=== PATIENT | female | born 1970 | race Caucasian/White ===

== ENCOUNTER → 2018-03-15 14:58 | Outpatient (CLI) | payer BC, SELFPAY ==
[2018-03-15 16:53] LABS: Absolute Lymphocyte Count 1.72 X10^3/ul (0.83-4.51); Absolute Neutrophil Count 3.7 X10^3/uL (2.0-7.7); Basophil# 0.02 X10^3/uL; Basophil% 0.3 % (0-1); Eosinophil# 0.18 X10^3/uL; Hematocrit 40.1 % (37-47); Hemoglobin 12.9 g/dl (12.0-15.0); Lymphocyte # 1.72 X10^3/ul (4.0); Lymphocyte % 28.6 % (19-41); Mean Corp Hgb Conc 32.2 g/gl (32-36); Mean Corpuscular Hgb 28.2 pg (27.0-32.0); Mean Corpuscular Volume 87.6 fL (81-99); Mean Platelet Vol. 9.6 fl (6.2-12.0); Monocyte# 0.43 X10^3/uL; Monocyte% 7.1 % (0-10); Neutrophil # 3.66 X10^3/uL (2.7-7.7); Neutrophil % 60.8 % (47-70); Platelet Count 218 K/mm3 (150-450); RBC Distribution Width CV 12.1 % (11.6-14.6); RBC Distribution Width SD 38.1 fl (35.1-43.9); Red Blood Count 4.58 M/mm3 (4.2-5.4)
[2018-03-15 16:56] LABS: POSITIVE COUNT NO; POSITIVE DIFFERENTIAL NO; POSITIVE MORPHOLOGY NO
[2018-03-15 17:23] LABS: AST(SGOT) 45 U/L (15-37); Alanine Aminotransfer ALT/SGPT 55 U/L (13-56); Albumin, Serum 3.6 g/dL (3.2-5.0); Alkaline Phosphatase 57 U/L (45-117); Anion Gap 12 (5-15); BUN 10 mg/dL (7-18); BUN/Creat Ratio 12.9 RATIO (10-20); Calcium,Total 8.4 mg/dL (8.5-10.1); Chloride 106 mmol/L (98-107); Cholesterol 169 mg/dL (200); Creatinine, Serum 0.77 mg/dL (0.55-1.02); EST Glomerular Filtration Rate 84 mL/min (>60); Est Glom Filt Rate - Afr Amer 101 mL/min (>60); Free T3 3.2 pg/mL (2.18-3.98); Globulin 3.6 g/dL (2.2-4.2); Glucose 76 mg/dL (74-106); High Density Lipoprotein 43 mg/dL; Potassium 3.7 mmol/L (3.5-5.1); Prolactin 25.6 ng/mL; Protein, Total 7.2 g/dL (6.4-8.2); Sodium Level 139 mmol/L (136-145); T4 Free Direct 0.92 ng/dL (0.76-1.46); Thyroid Stim Hormone (TSH) 1.52 uIU/mL (0.358-3.74); Triglycerides 118 mg/dL; Very Low Density Lipoprotein 24 mg/dL (5-40)
== END ==
PROVIDERS: Family Provider Family Medicine; PCP Family Medicine; Referring Provider Family Medicine; Visit Provider Family Medicine
DX: E78.5 Hyperlipidemia, unspecified (principal); K76.0 Fatty (change of) liver, not elsewhere classified; E78.1 Pure hyperglyceridemia; R53.83 Other fatigue; Z51.81 Encounter for therapeutic drug level monitoring
CPT/HCPCS: 36415; 80053; 80061; 84146; 84439; 84443; 84481; 85025

== ENCOUNTER → 2018-08-22 | Outpatient (CLI) | payer MEDICAID, SELFPAY ==
[2018-08-22 10:18] LABS: Hematocrit 41.8 % (37-47); Hemoglobin 13.6 g/dL (12.0-15.0); Mean Corp Hgb Conc 32.5 g/dL (32-36); Mean Corpuscular Hgb 27.9 pg (27.0-32.0); Mean Corpuscular Volume 85.8 fL (81-99); Mean Platelet Vol. 9.4 fl (6.2-12.0); Platelet Count 243 K/mm3 (150-450); RBC Distribution Width CV 12.3 % (11.6-14.6); RBC Distribution Width SD 38.3 fl (35.1-43.9); Red Blood Count 4.87 M/mm3 (4.2-5.4); White Blood Count 5.1 K/mm3 (4.4-11.0)
[2018-08-22 10:49] LABS: Hemoglobin A1c 6.1 % (4.2-6.3)
[2018-08-22 11:00] LABS: ALB/GLOB Ratio 1.1 RATIO (0.9-2.4); AST(SGOT) 36 U/L (15-37); Alanine Aminotransfer ALT/SGPT 60 U/L (13-56); Albumin, Serum 3.9 g/dL (3.2-5.0); Alkaline Phosphatase 67 U/L (45-117); Anion Gap 6 (5-15); BUN 11 mg/dL (7-18); BUN/Creat Ratio 10.5 RATIO (10-20); Calcium,Total 9.2 mg/dL (8.5-10.1); Chloride 106 mmol/L (98-107); Cholesterol 198 mg/dL (200); Creatinine, Serum 1.05 mg/dL (0.55-1.02); EST Glomerular Filtration Rate 59 mL/min (>60); Est Glom Filt Rate - Afr Amer 71 mL/min (>60); Estradiol 16.9 pg/mL; Globulin 3.7 g/dL (2.2-4.2); Glucose 103 mg/dL (74-106); High Density Lipoprotein 50 mg/dL; Potassium 4.2 mmol/L (3.5-5.1); Protein, Total 7.6 g/dL (6.4-8.2); Sodium Level 137 mmol/L (136-145); Triglycerides 113 mg/dL; Very Low Density Lipoprotein 23 mg/dL (5-40)
== END | disposition home or self-care (01) ==
LOC: LAB.FUTURE 08:31
PROVIDERS: Family Provider Family Medicine; PCP Family Medicine
DX: F64.0 Transsexualism (principal); Z13.1 Encounter for screening for diabetes mellitus
CPT/HCPCS: 36415; 80053; 80061; 82670; 83036; 84403; 85027

== ENCOUNTER → 2018-08-30 | Outpatient (CLI) | payer MEDICAID, SELFPAY ==
--- NOTE | 2018-08-30 15:26 | BI_ITS ---
MAMMOGRAPHY - BILATERAL SCREENING 3-D TOMOSYNTHESIS REASON FOR EXAM: Female, 48 years old. Bilateral Screening 3-D tomosynthesis PERTINENT HISTORY: No significant family history. TECHNIQUE: 2-D mammograms and 3-D Tomosynthesis of the breast (s) were performed. CAD was performed. COMPARISON: 08/13/2016 FINDINGS: The breast composition is heterogeneously dense that can obscure small breast masses. Scattered benign calcifications are seen. No dense spiculated masses or suspicious microcalcifications are identified. No architectural distortion is identified. There is no skin thickening or retraction. There has been no significant change since the prior study. BI/SCREEN MAMM (CAD) W/JESSY BILAT IMPRESSION: No mammographic signs of malignancy. Routine yearly mammograms recommended. ASSESSMENT CATEGORY: BIRADS Category 2: Benign. A letter regarding these results will be sent to the patient by the facility within 30 days. FOLLOW UP RECOMMENDATION: Yearly follow up mammogram recommended. (A) Approximately 10% of breast cancers are not detected by mammography. A normal mammogram should not delay biopsy of a clinically suspicious abnormality. Electronically Signed: Cheo Liz MD at 9:42 EDT , Service support ,
== END | disposition home or self-care (01) ==
PROVIDERS: Family Provider Family Medicine; PCP Family Medicine
DX: Z12.31 Encounter for screening mammogram for malignant neoplasm of breast (principal); F64.0 Transsexualism; Z79.899 Other long term (current) drug therapy
CPT/HCPCS: 77063; 77067

== ENCOUNTER 2019-04-03 18:25 | Emergency (ER) | payer MEDICAID, SELFPAY ==
[2019-04-03 18:27] VITALS: BP 146/81; PULSE 106; RESP 18; TEMP 36.1; O2SAT 96; BMI 37.5
[2019-04-03] MEDS: Ibuprofen 400 MG Tablet 800 MG PO (19:00)
--- NOTE | 2019-04-03 19:05 | RAD_ITS ---
STUDY: X-RAY - LEFT ANKLE REASON FOR EXAM: Female, 49 years old. Fall, left ankle pain and swelling TECHNIQUE: 3 view(s) of the ankle. COMPARISON: None. FINDINGS: No acute fracture, dislocation or osseous destruction. Mild joint space narrowing and productive changes. Diffuse soft tissue swelling. IMPRESSION: No acute fracture or dislocation left ankle. Electronically Signed: Clement Cam, at 20:42 EST Tel , Service support , RAD/Ankle min 3 Views
--- NOTE | 2019-04-03 19:16 | ED.VISSUMM ---
- ER Visit Summary Date of Service: 04/03/19 Chief Complaint: Left ankle pain History of Present Illness: The patient is a [address] Luo. Reports that at 530 this evening while getting out of the car she had a forced inversion injury of her left ankle. She fell. She did not have a blow to the head. No loss of consciousness. She not on anticoagulants. She reports she has left knee pain is 2 out of 10 in severity and left ankle pain is 7 out of 10 severity. She denies any other injuries or complaints. She denies any paresthesias. Physical Examination: Vitals: Stable. Afebrile. Neck: No vertebral tenderness. Full ROM without difficulty. Cleared by NEXUS criteria. Back: No vertebral tenderness. General: A&O x 3. NAD. Cardiovascular exam: Regular rate and rhythm, no murmur, rub or gallop. Respiratory exam: Chest nontender. No crepitus. Clear to auscultation bilaterally. No wheezes or stridor. Abdominal exam: Soft, nontender, nondistended, normal bowel sounds. No pain in RUQ or LUQ specifically. No peritoneal signs. Extremity: Moderate tenderness palpation over both the medial lateral malleoli of her left ankle. There is no pain over the base the fifth nodule tarsal or the proximal fibula. She is neuro vas intact distal to this. No pain with range of motion. Test Results: Ankle x-ray shows no acute disease. Emergency Department Course and Treatment: Patient was treated with ibuprofen. She had an Satish wrap and Aircast placed. Treatment Plan: Patient be discharged instructions use Tylenol and/or ibuprofen for pain. Follow-up with her primary care physician 1 week if not improving. Disposition: To home in improved and stable condition. Impression: 1. Left ankle sprain. This note was generated with [employer] dictation software. It may contain incorrect words, spelling, and punctuation that were not noted in review of the chart prior to signing ED Disposition - Plan for ED Patient: Disposition: Home or Assisted Living Instructions: Sprain, Ankle, with X-Ray Referrals: Kell Granados DO [Primary Care Provider] - 1 Week if not improving
== END 2019-04-03 19:27 | disposition home or self-care (01) ==
LOC: ED 19:06
PROVIDERS: Emergency Provider Emergency Medicine; PCP Family Medicine
DX: S93.402A Sprain of unspecified ligament of left ankle, initial encounter (principal); W17.89XA Other fall from one level to another, initial encounter
CPT/HCPCS: 73610; 99283

== ENCOUNTER → 2019-07-05 08:12 | Outpatient (CLI) | payer MEDICAID, SELFPAY ==
[2019-07-05 12:43] LABS: Absolute Neutrophil Count 2.7 X10^3/uL (2.0-7.7); Basophil# 0.03 X10^3/uL; Basophil% 0.6 % (0-1); Eosinophil# 0.26 X10^3/uL; Eosinophils% 5.3 % (0-5); Hematocrit 40.9 % (37-47); Hemoglobin 13.2 g/dL (12.0-15.0); Lymphocyte % 30.5 % (19-41); Mean Corp Hgb Conc 32.3 g/dL (32-36); Mean Corpuscular Hgb 28.6 pg (27.0-32.0); Mean Corpuscular Volume 88.5 fL (81-99); Mean Platelet Vol. 9.5 fl (6.2-12.0); Monocyte# 0.39 X10^3/uL; Monocyte% 7.9 % (0-10); NRBC Flagged by Analyzer 0 % (0-5); Neutrophil # 2.72 X10^3/uL (2.7-7.7); Neutrophil % 55.5 % (47-70); Platelet Count 247 K/mm3 (150-450); RBC Distribution Width SD 38.5 fl (35.1-43.9); Red Blood Count 4.62 M/mm3 (4.2-5.4); White Blood Count 4.9 K/mm3 (4.4-11.0)
[2019-07-05 13:00] LABS: Hemoglobin A1c 5.8 % (3.8-5.6)
[2019-07-05 13:18] LABS: ALB/GLOB Ratio 0.9 RATIO (0.9-2.4); AST(SGOT) 20 U/L (15-37); Alanine Aminotransfer ALT/SGPT 28 U/L (13-56); Albumin, Serum 3.5 g/dL (3.2-5.0); Alkaline Phosphatase 70 U/L (45-117); Anion Gap 6 (5-15); BUN 17 mg/dL (7-18); BUN/Creat Ratio 21.7 RATIO (10-20); Calcium,Total 8.8 mg/dL (8.5-10.1); Chloride 109 mmol/L (98-107); Cholesterol 176 mg/dL (200); Creatinine, Serum 0.78 mg/dL (0.55-1.02); EST Glomerular Filtration Rate 82 mL/min (>60); Est Glom Filt Rate - Afr Amer 99 mL/min (>60); Estradiol 136.2 pg/mL; Globulin 3.8 g/dL (2.2-4.2); Glucose 98 mg/dL (74-106); High Density Lipoprotein 53 mg/dL; Potassium 4.1 mmol/L (3.5-5.1); Protein, Total 7.3 g/dL (6.4-8.2); Sodium Level 139 mmol/L (136-145); Thyroid Stim Hormone (TSH) 2.01 uIU/mL (0.358-3.74); Triglycerides 110 mg/dL; Very Low Density Lipoprotein 22 mg/dL (5-40)
== END ==
PROVIDERS: PCP Family Medicine; Visit Provider Family Medicine
DX: Z00.00 Encounter for general adult medical examination without abnormal findings (principal); I10 Essential (primary) hypertension; F64.9 Gender identity disorder, unspecified; E78.5 Hyperlipidemia, unspecified
CPT/HCPCS: 36415; 80053; 80061; 82670; 83036; 84403; 84443; 85025

== ENCOUNTER → 2019-09-03 12:56 | Outpatient (CLI) | payer MEDICAID, SELFPAY ==
--- NOTE | 2019-09-03 13:02 | BI_ITS ---
MAMMOGRAPHY - BILATERAL SCREENING REASON FOR EXAM: Female, 49 years old. Routine annual screening examination. PERTINENT HISTORY: Non-contributory. TECHNIQUE: Digital bilateral breast jessy (3D mammographic acquisition) in the CC and MLO projections. 2-D mediolateral oblique (MLO) and craniocaudad (CC) views of both breasts were obtained. CAD: Full Field Digital Mammography with Computer Added Detection was performed. COMPARISON: Comparison is made with prior examination dated 08-30-18 and 08-13-16. FINDINGS: Breast Composition: The breasts are heterogeneously dense, which may obscure small masses. There are no dominant masses or suspicious calcifications. Stable benign-appearing bilateral axillary lymph nodes. No other significant abnormalities are identified. There has been no significant change since the prior study. BI/SCREEN MAMM (CAD) W/JESSY BILAT IMPRESSION: Stable bilateral screening mammogram. Yearly follow-up mammogram recommended. (A) ASSESSMENT CATEGORY: BIRADS Category 2: Benign. A letter regarding these results will be sent to the patient by the facility within 30 days. Approximately 10% of breast cancers are not detected by mammography. A normal mammogram should not delay biopsy of a clinically suspicious abnormality. [id number] Electronically Signed: Charlie Brumfield, at 14:10 EDT , Service support ,
== END ==
DX: Z12.31 Encounter for screening mammogram for malignant neoplasm of breast (principal)
CPT/HCPCS: 77063; 77067

== ENCOUNTER 2020-04-08 15:47 | Emergency (ER) | payer OTHER, MEDICAID, SELFPAY ==
[2020-04-08 15:48] VITALS: BP 139/94; PULSE 86; RESP 16; TEMP 35.8; O2SAT 96; BMI 34.4
--- NOTE | 2020-04-08 16:09 | ED.DCSUM_ITS ---
History of Present Illness Chief Complaint: Lower Extremity Injury Informant: Patient Occurred: Today Mechanism/Context: - - walking Context: Sudden Onset Timing: Continuous Quality of Pain: - - sore Location: lateral aspect left knee Current Severity: Mild Maximum Severity: Moderate Worsened by: straightening LLE at the knee Relieved by: bending and resting Associated Symptoms: Negative for: Parasthesia, Weakness, Loss of Funtion Narrative: Patient was at work, but not lifting or doing anything in particular, she was simply walking and suddenly felt a pop in the posterior lateral aspect of her left knee and has had pain with walking ever since especially when the leg is straightened at the knee. She denies any numbness or tingling, swelling, or radiation of the pain into her calf or any other abnormal sensations. She states she thinks she has had pain like this before but cannot recall specifically. Has had no prior major knee issues. 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 Past Medical History - Allergies and Home Meds Allergies/Adverse Reactions: Allergies Penicillins Allergy (Verified 04/08/20 15:48) Unknown Primary Care Physician: NOT,DEFINED [Primary Care Provider] - Past Medical History: None Lives: Spouse/ Significant Other Smoking Status: Former smoker Review of Systems General: Denies: Chills, Fever, Sweats Musculoskeletal: Reports: Extremity Pain. Denies: Back pain, Swelling Skin: Denies: Rash, Wounds Neurological: Denies: Headache, Weakness, Numbness Physical Exam Vital Signs/Narrative: Vital Signs Temp Pulse Resp BP Pulse Ox 04/08/20 15:48 96.5 F L 86 16 139/94 H 96 Inital Vital Signs reviewed: Yes - Extremity Exam Left Knee: - - Full range of motion. No bony tenderness. No effusion. Extensor mechanism intact. When straightened, she is tender at the insertion of the iliotibial band laterally about the left knee. There is no local swelling or erythema. There are no other tendons or muscles that are tender.. Negative for: Limited ROM General: Well nourished, Well developed, - - No acute distress Head: Normocephalic, Atraumatic Cardiovascular: - - Left lower extremity distal pulse intact. Back: - - Full range of motion without discomfort Skin: Normal color, No rash, No Trauma Neurological: Alert, Oriented x3, Cranial nerves II-XII grossly intact, Normal Strength, Normal Sensation, Normal Gait Psychological: Normal affect, Normal Mood Diagnostic/Tx/Re-eval - Medical Decision Making I think this patient simply strained her iliotibial band. Given that I do not think x-rays are indicated. I had her do a stretch that targets the iliotibial band on that side and she said that seem to target the structure that was hurting. All of her knee ligaments are stable and intact without any discomfort on stressing any of them including the LCL. I performed a Gerry to the best of my ability that is negative, this is all consistent with IT band being the issue. She was reassured this is treated similar to tendinitis with rest, anti- inflammatories, ice as needed, and if she does not have improvement in 1-2 weeks she should follow-up with her doctor and she is comfortable with that plan. ED Disposition - Plan for ED Patient: Disposition: Home or Assisted Living Diagnosis: Iliotibial band syndrome affecting left lower leg Instructions: ED Knee Sprain Referrals: NOT,DEFINED [Primary Care Provider] - Doctor,Your [STAFF PHYSICIAN] - 1-2 Weeks (if not improving w/ rest, ibuprofen, ice)
[2020-04-08] MEDS: Naproxen 500 MG Tablet PO (16:23)
== END 2020-04-08 16:28 | disposition home or self-care (01) ==
PROVIDERS: Emergency Provider Emergency Medicine
DX: M76.32 Iliotibial band syndrome, left leg (principal); Z87.891 Personal history of nicotine dependence
CPT/HCPCS: 99283

== ENCOUNTER 2021-06-16 19:08 | Emergency (ER) | payer MEDICAID, SELFPAY ==
[2021-06-16 19:09] VITALS: BP 121/90; PULSE 95; RESP 15; TEMP 35.2; O2SAT 94; BMI 37.5
[2021-06-16 19:25] LABS: Bedside Glucose 414 mg/dL (74-106)
--- NOTE | 2021-06-16 19:31 | EDS_ITS ---
HPI History of Present Illness Chief Complaint: Hyperglycemia Informant: patient Narrative Narrative: 51-year-old female presented to the emergency room with hyperglycemia. Patient tells me that her doctor is in [place]. She states that she was recently told that she has diabetes but not started on any medicines. She states that her next appointment is not until August. She has developed urinary frequency particular at night, dry mouth, lightheadedness, and notes that her blood sugars tonight were around 500. She states that she has not received any diabetes counseling. [facility] Medical History (Updated 06/16/21 @ 19:[address] Cristian Murray, ) Fatty liver Hypertension Type 2 diabetes mellitus Home Medications estradiol 2 mg PO BID 04/08/20 [History Last Taken Unknown] finasteride 5 mg PO DAILY 04/08/20 [History Last Taken Unknown] lisinopril 10 mg PO DAILY 04/08/20 [History Last Taken Unknown] metformin 500 mg PO BID #60 tab 06/16/21 [Rx Last Taken Unknown] Allergy/AdvReac Type Severity Reaction Status Date / Time Penicillins Allergy Unknown Verified 06/16/21 19:13 Social History (Updated 06/16/21 @ 19:[address] Cristian Murray, ) Smoking Status: Former smoker substance use type: does not use ROS ROS ED Constitutional Constitutional ED: Denies chills, fever(s) or weight loss Eyes Eyes: Denies change in vision or diplopia ENT ENT ED: Reports other Details: Dry mouth ; Denies ear pain, rhinorrhea or sore throat Cardiovascular Cardiovascular: Denies chest pain, orthopnea, palpitations or racing heartbeat Respiratory/Chest Respiratory/Chest: Denies cough, dyspnea or orthopnea Gastrointestinal Gastrointestinal: Denies abdominal pain, diarrhea, nausea or vomiting Genitourinary Genitourinary ED: Reports urinary frequency; Denies dysuria or hematuria Musculoskeletal Musculoskeletal: Denies arthralgias or myalgias Integumentary Denies abscess or rash Neurologic Neurologic: Reports weakness; Denies headache(s) Psychiatric Psychiatric: Denies anxiety, depression, suicidal ideation or suicidal thoughts Endocrine Endocrinology: Denies polydipsia, polyphagia or polyuria Allergic/Immunologic Allergic/Immunologic ED: Denies mouth swelling, tongue swelling or urticaria EXAM Physical Exam Const Vital Signs: 06/16/21 19:09 Temperature 95.4 F L Temperature Source Temporal Pulse Rate 95 Respiratory Rate 15 Blood Pressure 121/90 H Blood Pressure Mean 100 Pulse Ox 94 Oxygen Delivery Method Room Air Positive well nourished, well developed and obese General Appearance ED: well developed Nutritional Appearance: obese HEENT Reports normocephalic, head/scalp atraumatic, TM's clear and moist mucous membra yamila Negative for trauma Tympanic Membrane ED: Yes TM's clear Eyes PERRL and EOMs intact bilaterally Neck no lymphadenopathy, supple and no JVD Resp normal respiratory effort and clear to auscultation bilaterally Cardio regular rate, regular rhythm and no murmurs GI normal to inspection, nondistended, normoactive bowel sounds and non-tender Palpation: soft Back/Spine no CVA tenderness and normal ROM Extremity normal to inspection General Extremety ED: Negative for edema General Extremity: Negative for edema Neuro oriented x3 and CN's II-XII intact bilaterally Sensorium / Orientation: alert Motor Exam: strength 5/5 throughout Psych mental status grossly normal Mood & Affect: Negative for depressed or tearful Skin no rashes or lesions noted and no wounds MDM MDM MDM Narrative Medical decision making narrative: The patient's CMP shows a glucose of 395. Her hemoglobin A1c is 12.3 urinalysis positive for ketones. She does not have an anion gap and her CO2 was 21. Patient will be started on metformin. She received a liter of IV fluids. She was referred to endocrinology Lab Data Attestation: I reviewed the patient's lab results. Labs: Laboratory Results - last 24 hr 06/16/21 06/16/21 06/16/21 19:18 19:28 19:28 WBC 4.6 RBC 4.95 Hgb 13.9 Hct 40.9 MCV 82.6 MCH 28.1 MCHC 34.0 RDW Std Deviation 36.5 RDW Coeff of [place] 12.0 Plt Count 221 MPV 9.4 Immature Gran % (Auto) 0.400 Neut % (Auto) 57.4 Lymph % (Auto) 28.2 [place] % (Auto) 11.8 H Eos % (Auto) 1.3 Baso % (Auto) 0.9 Absolute Neuts (auto) 2.6 Absolute Lymphs (auto) 1.29 Nucleated RBC % 0 Sodium 134 L Potassium 3.9 Chloride 99 Carbon Dioxide 21.0 Anion Gap 14 BUN 12 Creatinine 0.73 Estim Creat Clear Calc 86.67 Est GFR (MDRD) Af Amer 108 Est GFR (MDRD) Non-Af 89 BUN/Creatinine Ratio 16.5 Glucose 395 H Hemoglobin A1c Calcium 8.9 Total Bilirubin 0.50 AST 91 H ALT 215 H Alkaline Phosphatase 73 Total Protein 7.5 Albumin 3.2 Globulin 4.3 H Albumin/Globulin Ratio 0.7 L Urine Color Urine Clarity Urine pH Ur Specific [place] Urine Protein Urine Glucose (UA) Urine Ketones Urine Occult Blood Urine Nitrite Urine Bilirubin Urine Urobilinogen Ur Leukocyte Esterase Urine RBC Urine WBC Ur Squamous Epith Cells Urine Bacteria Urine Mucus POC Glucose 414 H 06/16/21 06/16/21 19:28 19:37 WBC RBC Hgb Hct MCV MCH MCHC RDW Std Deviation RDW Coeff of [place] Plt Count MPV Immature Gran % (Auto) Neut % (Auto) Lymph % (Auto) [place] % (Auto) Eos % (Auto) Baso % (Auto) Absolute Neuts (auto) Absolute Lymphs (auto) Nucleated RBC % Sodium Potassium Chloride Carbon Dioxide Anion Gap BUN Creatinine Estim Creat Clear Calc Est GFR (MDRD) Af Amer Est GFR (MDRD) Non-Af BUN/Creatinine Ratio Glucose Hemoglobin A1c 12.3 H Calcium Total Bilirubin AST ALT Alkaline Phosphatase Total Protein Albumin Globulin Albumin/Globulin Ratio Urine Color Yellow Urine Clarity Clear Urine pH 6.0 Ur Specific [place] 1.020 Urine Protein Negative Urine Glucose (UA) 1000 H Urine Ketones 150 A* Urine Occult Blood 10 H Urine Nitrite Negative Urine Bilirubin Negative Urine Urobilinogen Normal Ur Leukocyte Esterase Negative Urine RBC 0-5 SEEN Urine WBC 0-5 SEEN Ur Squamous Epith Cells 0-5 SEEN Urine Bacteria 0 SEEN Urine Mucus 0 SEEN POC Glucose Discharge Plan Triage Chief Complaint: Hyperglycemia ED Provider: Cristian Murray Dx/Rx/DC Orders Clinical Impression: Hyperglycemia due to type 2 diabetes mellitus Instructions: ED Hyperglycemia New Susp Diabetes Prescriptions: New metformin 500 mg tablet 500 mg PO BID Qty: 60 RF: 0 No Action lisinopril 10 MG tablet 10 mg PO DAILY RF: 0 estradiol 2 MG tablet 2 mg PO BID RF: 0 finasteride 5 MG tablet 5 mg PO DAILY RF: 0 Referrals: LEIGH ANN GUERIN [Other] Epifanio Morales MD [STAFF PHYSICIAN] - As soon as possible (for endocrinology) Activity Restrictions/Additional Instructions: I would strongly encourage you to follow-up with endocrinology as you need diabetic teaching and will need medication adjustments. Please see Dr. Morales's information above Disposition Disposition: Home, Self Care
[2021-06-16] MEDS: 0.9% Normal Saline 1,000 ML 999 ML IV (19:37)
[2021-06-16 19:44] LABS: Bacteria 0 SEEN /hpf (None Seen); Mucous, Urine 0 SEEN /hpf (<or=2+)
[2021-06-16 19:45] LABS: Absolute Lymphocyte Count 1.29 X10^3/uL (0.83-4.51); Absolute Neutrophil Count 2.6 X10^3/uL (2.0-7.7); Basophil# 0.04 X10^3/uL; Basophil% 0.9 % (0-1); Eosinophil# 0.06 X10^3/uL; Eosinophils% 1.3 % (0-5); Hematocrit 40.9 % (37-47); Hemoglobin 13.9 g/dL (12.0-15.0); Lymphocyte # 1.29 X10^3/ul (0.83-4.51); Lymphocyte % 28.2 % (19-41); Mean Corpuscular Hgb 28.1 pg (27.0-32.0); Mean Corpuscular Volume 82.6 fL (81-99); Mean Platelet Vol. 9.4 fl (6.2-12.0); Monocyte# 0.54 X10^3/uL; Monocyte% 11.8 % (0-10); NRBC Flagged by Analyzer 0 % (0-5); Neutrophil # 2.62 X10^3/uL (2.7-7.7); Neutrophil % 57.4 % (47-70); Platelet Count 221 K/mm3 (150-450); RBC Distribution Width SD 36.5 fl (35.1-43.9); Red Blood Count 4.95 M/mm3 (4.2-5.4); White Blood Count 4.6 K/mm3 (4.4-11.0)
[2021-06-16 19:46] LABS: Color, Urine Yellow (Yellow); Glucose, Dipstick 1000 mg/dl (Normal); Leukocyte Esterase-Dipstick Negative /ul (Negative); Nitrite-Dipstick Negative (Negative); Occult Blood-Urine 10 /ul (Negative); Protein-Dipstick Negative (Negative); Urine Bilirubin Dipstick Negative (Negative); Urine Clarity Clear (Clear); Urine Urobilinogen Normal (Normal)
[2021-06-16 19:58] LABS: ALB/GLOB Ratio 0.7 RATIO (0.9-2.4); AST(SGOT) 91 U/L (15-37); Alanine Aminotransfer ALT/SGPT 215 U/L (13-56); Albumin, Serum 3.2 g/dL (3.2-5.0); Alkaline Phosphatase 73 U/L (45-117); Anion Gap 14 (5-15); BUN 12 mg/dL (7-18); BUN/Creat Ratio 16.5 RATIO (10-20); Calcium,Total 8.9 mg/dL (8.5-10.1); Chloride 99 mmol/L (98-107); Creatinine, Serum 0.73 mg/dL (0.55-1.02); EST Glomerular Filtration Rate 89 mL/min (>60); Est Glom Filt Rate - Afr Amer 108 mL/min (>60); Estimated Creatinine Clearance 86.67 ml/min; Globulin 4.3 g/dL (2.2-4.2); Glucose 395 mg/dL (74-106); Potassium 3.9 mmol/L (3.5-5.1); Protein, Total 7.5 g/dL (6.4-8.2); Sodium Level 134 mmol/L (136-145)
[2021-06-16 19:59] LABS: Red Blood Cells-Urine 0-5 SEEN /hpf (0-5); Squamous Epithelial Cells - UA 0-5 SEEN /hpf (5-10); White Blood Cells 0-5 SEEN /hpf (0-5)
[2021-06-16 20:00] LABS: Ketone-Dipstick 150 mg/dl (Negative)
[2021-06-16 20:06] LABS: Hemoglobin A1c 12.3 % (3.8-5.6)
[2021-06-16 21:07] VITALS: PULSE 87; RESP 15; O2SAT 98
== END 2021-06-16 21:08 | disposition home or self-care (01) ==
PROVIDERS: Emergency Provider Emergency Medicine; Visit Provider Emergency Medicine
DX: E11.65 Type 2 diabetes mellitus with hyperglycemia (principal); I10 Essential (primary) hypertension; K76.0 Fatty (change of) liver, not elsewhere classified; E66.9 Obesity, unspecified; Z87.891 Personal history of nicotine dependence; Z79.899 Other long term (current) drug therapy
CPT/HCPCS: 80053; 81001; 82962; 83036; 85025; 99283; J7030; A4216

== ENCOUNTER 2021-12-15 14:30 | Outpatient (RCR) | payer MEDICAID, SELFPAY ==
--- NOTE | 2021-12-03 15:05 | HP.PTEVAL_ITS ---
Patient's Visit Information ISAI GRAHAM is a 51 year old M referred to Physical Therapy by SAGE Rueda with a diagnosis of R knee pain. Date of Evaluation: 12/03/21 Physical Therapist: Bj Lyn, PT, ATC - Visit Plan Frequency: 2-3x /Week Duration: 4 Weeks Plan: R LE strengthening, core strengthening, stretching (HS's and IT band), bike, and HEP - Subjective Pt reports her R knee has been sore for approximately 3 weeks. 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 Pt notes this may have caused some of her pain. Pt also notes she takes care of her mother that is aging and overweight which may cause some of her pain. Pt reports she is very active with yard work and notes this to may have caused her pain. Pt notes she had xrays taken which revealed her knee cap is out of place. Pt denies her knee giving out on her or locking up, but notes her R knee does pop on occasion which does not result in pain. Pt notes she has several steps in her house which she has to negotiate one step at a time. Pt also notes she is unable to squat secondary to pain. Pt reports occasional tingling or numbness in R mid thigh. No sleep difficulty s econdary to pain. Pt notes she has difficulty with prolonged standing and walking secondary to pain. Pt reports she is not currently in pain. - Pain R knee Pain Intensity (Out of 10): 0 Pain Intensity Range: 1 - Objective Neuro: B LE sensation is WNL to lgiht touch. B patellar reflex= 2/3. Palpation: Peripatellar region is very sore. No obvious deformity at this time. Girth at joint line: L knee 39 cm, R knee 40 cm. ROM: L knee 0-128, R knee 0-80 degrees. MMT: L knee flex= 34, ext= 37 #F; R knee flex= 25, ext= 26 #F. Special test: Pos McConnells sign, 90/90 test (45 degree lag) - Balance/Special Test Scores Lower Extremity Functional Score: 62 - Goals Goal 1:: Increase R knee strength x 5 #F to aid with stair negotiation Goal Time Frame: 2-4 Weeks Goal 2:: Decrease R knee pain x 50% to aid with prolonged standing Goal Time Frame: 2-4 Weeks Goal 3:: Increase R knee flex ROM x 10 degrees to aid with squatting activity Goal Time Frame: 2-4 Weeks Goal 4:: I with HEP Goal Time Frame: 2-4 Weeks - Rehabilitation Potential Physical Therapy Diagnosis: Pt has R knee pain, weakness, and limited ROM secondary to R knee chondromalacia patella Rehabilitation Potential: Good - Anticipated Interventions Patient/Client Instruction: Educate patient on: Condition, Plan of Care For the Purpose of:: To improve self management Therapeutic Exercise to Include: Strength training, Endurance training, Balance training, Flexibilty training, Dynamic Lumbar Stabilization For the Purpose of:: To decrease pain, To increase ROM, To improve muscle performance and motor function Cryotherapy (ice pack, ice massage): Yes For the Purpose of:: To decrease pain Thank you for the opportunity to evaluate your patient. For Medicare and Medicare HMO plans, please review the plan of care and approve it. It will need to be FAXED BACK to us at [phone] for Medicare purposes. For Medicare only, by signing this I certify the plan of care. Please let me know if there are questions or concerns regarding this plan of care. Physician Signature: Date:
== END 2021-12-15 19:00 | disposition home or self-care (01) ==
LOC: PT 14:30
PROVIDERS: Referring Provider Nurse Practitioner; Visit Provider Nurse Practitioner
DX: M22.41 Chondromalacia patellae, right knee (principal)
CPT/HCPCS: 97110; 97161

== ENCOUNTER 2022-05-14 12:01 | Emergency (ER) | payer MEDICAID, SELFPAY ==
[2022-05-14 12:02] VITALS: BP 127/80; PULSE 73; RESP 18; TEMP 35.7; O2SAT 98; BMI 38.0
[2022-05-14 13:38] LABS: Absolute Lymphocyte Count 1.63 X10^3/uL (0.83-4.51); Absolute Neutrophil Count 3.7 X10^3/uL (2.0-7.7); Basophil# 0.04 X10^3/uL; Basophil% 0.7 % (0-1); Eosinophil# 0.11 X10^3/uL; Eosinophils% 1.9 % (0-5); Hematocrit 43.2 % (40-54); Hemoglobin 14.3 g/dL (13.0-16.5); Lymphocyte # 1.63 X10^3/ul (0.83-4.51); Lymphocyte % 27.7 % (19-41); Mean Corp Hgb Conc 33.1 g/dL (32-36); Mean Corpuscular Hgb 28.8 pg (27.0-32.0); Mean Corpuscular Volume 86.9 fL (80-94); Mean Platelet Vol. 10.2 fl (6.2-12.0); Monocyte# 0.44 X10^3/uL; Monocyte% 7.5 % (0-10); NRBC Flagged by Analyzer 0 % (0-5); Neutrophil # 3.65 X10^3/uL (2.7-7.7); Neutrophil % 61.9 % (47-70); Platelet Count 212 K/mm3 (150-450); RBC Distribution Width CV 12.3 % (11.6-14.6); Red Blood Count 4.97 M/mm3 (4.6-6.2); White Blood Count 5.9 K/mm3 (4.4-11.0)
[2022-05-14 13:50] LABS: ALB/GLOB Ratio 0.9 RATIO (0.9-2.4); AST(SGOT) 142 U/L (15-37); Alanine Aminotransfer ALT/SGPT 298 U/L (16-61); Albumin, Serum 3.4 g/dL (3.2-5.0); Alkaline Phosphatase 64 U/L (45-117); Anion Gap 8 (5-15); BUN 18 mg/dL (7-18); BUN/Creat Ratio 19.1 RATIO (10-20); Calcium,Total 9.4 mg/dL (8.5-10.1); Chloride 106 mmol/L (98-107); Creatinine, Serum 0.94 mg/dL (0.70-1.30); EST Glomerular Filtration Rate 88 mL/min (>60); Est Glom Filt Rate - Afr Amer 107 mL/min (>60); Estimated Creatinine Clearance 83.99 ml/min; Globulin 3.9 g/dL (2.2-4.2); Glucose 139 mg/dL (74-106); Lipase 218 U/L (73-393); Magnesium 1.9 mg/dL (1.6-2.6); Potassium 4.1 mmol/L (3.5-5.1); Protein, Total 7.3 g/dL (6.4-8.2); Sodium Level 137 mmol/L (136-145)
--- NOTE | 2022-05-14 14:01 | CT_ITS ---
STUDY: CT ABDOMEN AND PELVIS WITH CONTRAST REASON FOR EXAM: Male, 52 years old. RUQ pain, diarrhea RADIATION DOSAGE (If Supplied By Facility): CTDIvol = ( 14.97 ) mGy, DLP = ( 122.42 ) mGycm TECHNIQUE: Transaxial images were obtained from the dome of the diaphragm to the symphysis pubis without oral contrast. IV 100mL Isovue-370 was administered. Sagittal and coronal images were reconstructed. Individualized dose optimization techniques were used for this CT. COMPARISON: None. FINDINGS: The visualized lung bases are unremarkable. The visualized portions of the heart are within normal limits. There is decreased attenuation of the liver consistent with steatosis. Mild hepatomegaly. The gallbladder is contracted. Normal spleen. Normal pancreas. There is a small, circumscribed, smooth, low attenuation left adrenal mass, consistent with an adrenal adenoma. This measures 1.9 cm. Normal right adrenal gland. Normal right kidney. 3.6 on images cyst in the lateral midportion of the left kidney. 1.3 cm cyst in the medial aspect of the left kidney. Normal visualized stomach. Normal small intestine. There are multiple colonic diverticula consistent with diverticulosis. The appendix is visualized and appears normal. There is scattered atherosclerotic calcification of the abdominal aorta, without a demonstrated aneurysm. Normal inferior vena cava. Normal retroperitoneum. Normal urinary bladder. There are prostatic calcifications. There is a left-sided inguinal hernia containing adipose tissue. Grade 2 anterior listhesis of L5 on S1 due to spondylolysis of the pars interarticularis of the L5 vertebrae. Disc space narrowing and disc degeneration. CT/Abdomen/Pelvis W IV Cont ONLY IMPRESSION: Hepatomegaly and fatty infiltration of the liver. Left renal cysts. Sigmoid diverticulosis. Electronically Signed: Charlie Brumfield MD at 14:41 EDT ,
[2022-05-14 14:14] LABS: Bacteria 0 SEEN /hpf (None Seen); Mucous, Urine 0 SEEN /hpf (<or=2+); Red Blood Cells-Urine 0 SEEN /hpf (0-5); Squamous Epithelial Cells - UA 0 SEEN /hpf (0-5); White Blood Cells 0 SEEN /hpf (0-5)
[2022-05-14 14:28] LABS: Glucose, Dipstick Normal (Normal); Ketone-Dipstick Negative (Negative); Leukocyte Esterase-Dipstick Negative /ul (Negative); Nitrite-Dipstick Negative (Negative); Occult Blood-Urine Negative /ul (Negative); Protein-Dipstick Negative (Negative); Urine Bilirubin Dipstick Negative (Negative); Urine Urobilinogen Normal (Normal)
[2022-05-14 14:48] LABS: Color, Urine Yellow (Yellow); Urine Clarity Clear (Clear)
--- NOTE | 2022-05-14 15:33 | ED.VIS.GI ---
HPI HPI - GI History of Present Illness Chief Complaint: Diarrhea Narrative Narrative: Patient is a 52-year-old female presenting with diarrhea. Patient states she is having having ongoing diarrhea for the past month. She denies any black or blood in her stool but states that she does have some mild bleeding with wiping. He states he is having 7-8 bowel movements a day. She states every once a while she will get a cramping pain in her right flank prior to a bowel movement. Has not found any aggravating or alleviating factors. Denies any recent antibiotics, hospitalization or known exposure/history of C. difficile. Denies any fevers, night sweats or weight changes. Has never had a colonoscopy. States she is following with GI through [facility]. She was actually supposed to have a liver biopsy on March 05 but had a panic attack right before it and left. She has not followed up since. Patient is no other complaints at this time. [facility] Medical History Chondromalacia of right patella Fatty liver Hypertension Type 2 diabetes mellitus Home Medications estradiol 2 mg tablet 2 mg PO BID 04/08/20 [History Last Taken Unknown] finasteride 5 mg tablet 5 mg PO DAILY 04/08/20 [History Last Taken Unknown] lisinopril 10 mg tablet 10 mg PO DAILY 04/08/20 [History Last Taken Unknown] dulaglutide 0.75 mg/0.5 mL subcutaneous pen injector (Trulicity) 0.75 mg (0.5 mL) subcut QWEEK #2 mL 08/27/21 [Rx Last Taken Unknown] insulin detemir U-100 100 unit/mL (3 mL) subcutaneous pen (Levemir FlexTouch U-100 Insulin) 40 unit (0.4 mL) subcut QHS #36 mL 08/27/21 [Rx Last Taken Unknown] metformin 500 mg tablet 1,000 mg PO BID #360 tabs 08/27/21 [Rx Last Taken Unknown] milk thistle 175 mg tablet 175 mg PO BID 08/27/21 [History Last Taken Unknown] pen needle, diabetic 32 gauge x 5/32 (BD Ultra-Fine [place] Pen Needle) #100 ea 08/27/21 [Rx Last Taken Unknown] meloxicam 15 mg tablet 15 mg PO DAILY Pain #30 tabs 11/26/21 [Rx Last Taken Unknown] rosuvastatin 5 mg tablet 5 mg PO DAILY 11/26/21 [History Last Taken Unknown] apixaban 5 mg tablet (Eliquis) 5 mg PO BID 05/14/22 [History Last Taken Unknown] Allergy/AdvReac Type Severity Reaction Status Date / Time Penicillins Allergy Unknown Verified 05/14/22 12:04 atorvastatin AdvReac Severe myalgia Verified 05/14/22 12:04 Family History Other CVA (cerebral vascular accident) Diabetes Hypertension Social History Smoking Status: Former smoker alcohol intake: current alcohol intake frequency: 0-2 drinks per day substance use type: does not use what type of physical activity do you participate in: walking, swimming and other ROS ROS ED Constitutional Constitutional ED: Denies chills, fever(s), sweats or weight loss ENT ENT ED: Denies sore throat Cardiovascular Cardiovascular: Denies chest pain Respiratory/Chest Respiratory/Chest: Denies cough Gastrointestinal Gastrointestinal: Reports abdominal pain and diarrhea; Denies melena, nausea or vomiting Genitourinary Genitourinary ED: Denies dysuria or hematuria Musculoskeletal Musculoskeletal: Denies arthralgias or myalgias Integumentary Denies rash Neurologic Neurologic: Denies headache(s), paresthesias or weakness Psychiatric Psychiatric: Reports anxiety; Denies depression Hematologic/Lymphatic Hematologic/Lymphatic: Reports easy bleeding and easy bruising EXAM Physical Exam Const Vital Signs: 05/14/22 12:02 Temperature 96.3 F L Temperature Source Temporal Pulse Rate 73 Respiratory Rate 18 Blood Pressure 127/80 H Blood Pressure Mean 95 Pulse Ox 98 Oxygen Delivery Method Room Air Positive well nourished, well developed and obese General Appearance ED: well developed and NAD; Negative for pallor Nutritional Appearance: obese HEENT Reports moist mucous membranes normocephalic and atraumatic Eyes PERRL and EOMs intact bilaterally Neck supple Resp normal respiratory effort and clear to auscultation bilaterally Cardio regular rate, regular rhythm and no murmurs GI non-tender and non-distended Auscultation: normoactive bowel sounds Palpation: soft; Negative for guarding or rigid Extremity full ROM Psych mental status grossly normal and thought process normal Skin no wounds General Skin Exam: Negative for jaundice or pallor MDM MDM MDM Narrative Medical decision making narrative: Patient is evaluated for diarrhea for the past month. She appears nontoxic. Abdominal exam is pretty benign. CBC largely normal with no leukocytosis with normal hemoglobin of 14.3. Her CMP is remarkable for transaminitis with an AST of 142 and ALT of 298. This likely is consistent with her history of fatty liver. She has a normal BUN and creatinine and I have a low suspicion for associated GI bleed. She does not have any electrolyte abnormalities. Urinalysis is normal. She clinically does not appear dehydrated. Given her symptoms with this intermittent right flank pain I did obtain a CT of the abdomen and pelvis. This does show hepatomegaly and fatty infiltration of the liver as well as sigmoid diverticulosis but no other acute process. Given her lack of fever, leukocytosis and 1 month of symptoms have a lower suspicion for an acute colitis. We do not think she requires antibiotics. She is able to provide a stool study and this is sent off. Patient is instructed to take Pepto-Bismol in the meantime. She be contacted if her stool study comes back positive. She is agreeable this plan of care. She is encouraged to follow-up with her GI doctor through [facility] as she will likely benefit from that liver biopsy and a colonoscopy. She states she will message her today. Patient and significant other agreeable with plan of care. Patient discharged home in stable condition. Lab Data Attestation: I reviewed the patient's lab results. Labs: Laboratory Results - last 24 hr 05/14/22 05/14/22 05/14/22 12:39 12:39 13:48 WBC 5.9 RBC 4.97 Hgb 14.3 Hct 43.2 MCV 86.9 MCH 28.8 MCHC 33.1 RDW Std Deviation 39.0 RDW Coeff of [place] 12.3 Plt Count 212 MPV 10.2 Immature Gran % (Auto) 0.300 Neut % (Auto) 61.9 Lymph % (Auto) 27.7 [place] % (Auto) 7.5 Eos % (Auto) 1.9 Baso % (Auto) 0.7 Absolute Neuts (auto) 3.7 Absolute Lymphs (auto) 1.63 Nucleated RBC % 0 Sodium 137 Potassium 4.1 Chloride 106 Carbon Dioxide 23.0 Anion Gap 8 BUN 18 Creatinine 0.94 Estim Creat Clear Calc 83.99 Est GFR (MDRD) Af Amer 107 Est GFR (MDRD) Non-Af 88 BUN/Creatinine Ratio 19.1 Glucose 139 H Calcium 9.4 Magnesium 1.9 Total Bilirubin 0.30 AST 142 H ALT 298 H Alkaline Phosphatase 64 Total Protein 7.3 Albumin 3.4 Globulin 3.9 Albumin/Globulin Ratio 0.9 Lipase 218 Urine Color Yellow Urine Clarity Clear Urine pH 6.0 Ur Specific [place] 1.020 Urine Protein Negative Urine Glucose (UA) Normal Urine Ketones Negative Urine Occult Blood Negative Urine Nitrite Negative Urine Bilirubin Negative Urine Urobilinogen Normal Ur Leukocyte Esterase Negative Urine RBC 0 SEEN Urine WBC 0 SEEN Ur Squamous Epith Cells 0 SEEN Urine Bacteria 0 SEEN Urine Mucus 0 SEEN Radiography Diagnostic Testing: Clinical Impression(s) from Imaging Studies Abdomen/Pelvis CT 05/14/22 14:01 IMPRESSION: Hepatomegaly and fatty infiltration of the liver. Left renal cysts. Sigmoid diverticulosis. Electronically Signed: Charlie Brumfield MD at 14:41 EDT , Discharge Plan Triage Chief Complaint: Diarrhea ED Provider: Sanjana Rose Dx/Rx/DC Orders Clinical Impression: Diarrhea, Abnormal transaminases, Fatty liver Instructions: ED Diarrhea, Unknown Cause Prescriptions: No Action milk thistle 175 mg tablet 175 mg PO BID Rx Instructions: give with meal/snack Trulicity 0.75 mg/0.5 mL pen injector 0.75 mg subcut QWEEK Qty: 2 2RF Levemir FlexTouch U-100 Insuln 100 unit/mL (3 mL) insulin pen 40 unit subcut QHS Qty: 36 1RF metformin 500 mg tablet 1,000 mg PO BID Qty: 360 1RF (DME) pen needle, diabetic [BD Ultra-Fine [place] Pen Needle] 32 gauge x 5/32 needle See Rx Instructions .Route Qty: 100 3RF Rx Instructions: daily rosuvastatin 5 mg tablet 5 mg PO DAILY meloxicam 15 mg tablet 15 mg PO DAILY Qty: 30 0RF Rx Instructions: Take once daily with food, do not take in conjunction with other NSAIDS. lisinopril 10 MG tablet 10 mg PO DAILY estradiol 2 MG tablet 2 mg PO BID finasteride 5 MG tablet 5 mg PO DAILY Eliquis 5 mg tablet 5 mg PO BID Label Comments: Take 1 tablet by mouth twice daily. Primary Care Provider: LEIGH ANN AVILA Referrals: LEIGH ANN AVILA [Other] Activity Restrictions/Additional Instructions: Follow-up with your GI doctor. Take Pepto-Bismol for diarrhea. Your stool has been sent off for studies. If something comes up positive and you need additional medications you will be contacted later today or tomorrow morning. If you not hear from us by tomorrow morning with your results please call back to the emergency room. Disposition Disposition: Home, Self Care
--- NOTE | 2022-05-15 10:06 | ED.RN ---
THIS RN SPOKE WITH REGARDING POSITIVE FECAL WBC LACTOFERRIN. DR. MCCLURE STATES NO FURTHER ACTION NEEDED FAR TREATMENT JUST TO HAVE PT F/UP WITH GI DOC. THIS RN SPOKE WITH THE PATIENT. SHE VERBALIZES UNDERSTANDING OF RESULTS AND TO FOLLOW UP WITH HE GI DOC
== END 2022-05-14 15:52 | disposition home or self-care (01) ==
PROVIDERS: Emergency Provider Emergency Medicine; Visit Provider Emergency Medicine
DX: R19.7 Diarrhea, unspecified (principal); E11.9 Type 2 diabetes mellitus without complications; Z79.4 Long term (current) use of insulin; K76.0 Fatty (change of) liver, not elsewhere classified; I10 Essential (primary) hypertension; E66.9 Obesity, unspecified; Z79.01 Long term (current) use of anticoagulants; Z79.84 Long term (current) use of oral hypoglycemic drugs; Z79.899 Other long term (current) drug therapy; Z87.891 Personal history of nicotine dependence
CPT/HCPCS: 74177; 80053; 81001; 83630; 83690; 83735; 85025; 87177; 87209; 87493; 87506; 99283; Q9967; A4216

== ENCOUNTER 2023-03-05 12:29 | Emergency (ER) | payer MEDICAID, SELFPAY ==
[2023-03-05 12:30] VITALS: BP 130/88; PULSE 74; RESP 16; TEMP 36.1; O2SAT 95; BMI 37.9
--- NOTE | 2023-03-05 12:43 | EDS_ITS ---
HPI <STAS Foreman - Last Filed: 03/05/23 16:37> History of Present Illness Chief Complaint: Hyperglycemia Narrative Narrative: 52-year-old female with past medical history of diabetes states her blood sugars have been running 400-500 over the last 4 days. She states she has been dieting and eating better. She does not feel ill in any way. No fever chills, nausea vomiting, chest pain shortness of breath, abdominal pain or diarrhea, or urinary symptoms. She does not know the name of the insulin she takes. She takes 5 units of something in the morning and about 26 units of something which might be Levemir in the evening. She gave herself 1 to 2 units more than usual. She is also on metformin 500 mg twice daily but took 1000 mg dose this morning. [facility] <STAS Foreman - Last Filed: 03/05/23 16:37> [facility] Medical History Chondromalacia of right patella Fatty liver Hypertension Type 2 diabetes mellitus Home Medications estradiol 2 mg tablet 2 mg PO BID 04/08/20 [History Last Taken Unknown] finasteride 5 mg tablet 5 mg PO DAILY 04/08/20 [History Last Taken Unknown] lisinopril 10 mg tablet 10 mg PO DAILY 04/08/20 [History Last Taken Unknown] pen needle, diabetic 32 gauge x 5/32 (BD Ultra-Fine [place] Pen Needle) #100 ea 08/27/21 [Rx Last Taken Unknown] apixaban 5 mg tablet (Eliquis) 5 mg PO BID 05/14/22 [History Last Taken Unknown] insulin aspart U-100 100 unit/mL subcutaneous cartridge 5 unit subcut TID 03/05/23 [History Last Taken Unknown] insulin detemir U-100 100 unit/mL (3 mL) subcutaneous pen 22 unit subcut QHS 03/05/23 [History Last Taken Unknown] metformin 500 mg tablet 500 mg PO BID 03/05/23 [History Last Taken Unknown] metoprolol tartrate 25 mg tablet 25 mg PO BID 03/05/23 [History Last Taken Unknown] Allergy/AdvReac Type Severity Reaction Status Date / Time Penicillins Allergy Unknown Verified 05/14/22 12:04 atorvastatin AdvReac Severe myalgia Verified 05/14/22 12:04 Family History Other CVA (cerebral vascular accident) Diabetes Hypertension Social History Smoking Status: Former smoker alcohol intake: current alcohol intake frequency: 0-2 drinks per day substance use type: does not use what type of physical activity do you participate in: walking, swimming and other ROS <STAS Foreman - Last Filed: 03/05/23 16:37> ROS ED ROS Narrative Constitutional: Negative for fever, chills, malaise. CVS: Negative for chest pain. Respiratory: Negative for shortness of breath. GI: Negative for abdominal pain, nausea, vomiting, diarrhea, melena, hematochezia. : Negative for dysuria. EXAM <STAS Foreman - Last Filed: 03/05/23 16:37> Physical Exam Narrative Exam Narrative: CONST: Patient sitting in no acute distress. EYES: Normal inspection. NECK: Normal inspection. RESP: No respiratory distress, CTAB. CVS: Regular rate and rhythm, no murmur, no gallop. ABD: Soft and nontender, no guarding or rebound, nondistended. SKIN: Color normal, no rash, warm, dry, intact. EXTREMITIES: Normal appearance, no pedal edema. NEURO: Oriented x4. PSYCH: Normal affect. Const Vital Signs: 03/05/23 12:30 03/05/23 12:36 03/05/23 16:15 Temperature 96.9 F L Temperature Source Temporal Pulse Rate 74 Respiratory Rate 16 18 Respiratory Effort Normal Non-Labored Respiratory Pattern Normal Blood Pressure 130/88 H 108/79 Blood Pressure Mean 102 88 Pulse Ox 95 96 Oxygen Delivery Method Room Air <Dr. Brandon Benites MD - Last Filed: 03/05/23 15:25> Physical Exam Const Vital Signs: 03/05/23 12:30 03/05/23 12:36 03/05/23 16:15 Temperature 96.9 F L Temperature Source Temporal Pulse Rate 74 Respiratory Rate 16 18 Respiratory Effort Normal Non-Labored Respiratory Pattern Normal Blood Pressure 130/88 H 108/79 Blood Pressure Mean 102 88 Pulse Ox 95 96 Oxygen Delivery Method Room Air MDM <STAS Foreman - Last Filed: 03/05/23 16:37> MDM MDM Narrative Medical decision making narrative: Patient has history of type 2 diabetes and her blood sugars have been running high for 4 days. She is asymptomatic. She appears well and nontoxic with normal vital signs. Exam benign. CBC is WNL. Glucose is 470 with normal CO2 and anion gap and negative ketones. Sodium is 130 (corrected level 136). Urinalysis negative for infection. After 1 L IV fluids and 10 units of insulin blood sugars are trending down below 300. Patient advised to check sugars frequently and increase insulin as needed and see her PCP this week. Return precautions discussed and she was discharged in stable condition. Differential: Diabetic hyperglycemia versus DKA I have personally performed a face to face assessment of the patient and have reviewed the RUPESH Note. I performed a substantive portion of the visit including all aspects of the following. My morales findings include: History is [52-year-old biological male with diabetes with elevated blood sugar. Denies vomiting, diarrhea or fever. No dysuria.] Exam is [middle-age male no acute distress vital signs stable afebrile. HEENT exam unremarkable. Neck nontender no lymphadenopathy. Lungs clear to auscultation. Heart regular rhythm no murmur. Rate about 70. Chest wall nontender. Abdomen soft nontender. Moving all 4 extremities. Calves are nontender without edema or cords. Neurologically patient is awake alert no focal motor deficits. 5 of 5 mountain services manager strength. Dorsi plantarflexion intact. Back nontender. Skin unremarkable no petechiae or purpura. No rashes.] Medical Decision Making [52-year-old diabetic with elevated blood sugar rule out DKA. IV fluids and insulin. Blood sugar return for 70. After insulin and fluids it is now around 335 to be rechecked.] Other additions or changes: [None] Lab Data Attestation: I reviewed the patient's lab results. Labs: Laboratory Results - last 24 hr 03/05/23 03/05/23 03/05/23 12:40 14:15 15:06 WBC 5.6 RBC 5.31 Hgb 15.0 Hct 44.8 MCV 84.4 MCH 28.2 MCHC 33.5 RDW Std Deviation 37.0 RDW Coeff of [place] 12.2 Plt Count 217 MPV 10.0 Immature Gran % (Auto) 0.400 Neut % (Auto) 62.0 Lymph % (Auto) 27.0 [place] % (Auto) 7.1 Eos % (Auto) 2.8 Baso % (Auto) 0.7 Absolute Neuts (auto) 3.5 Absolute Lymphs (auto) 1.52 Nucleated RBC % 0 Sodium 130 L Potassium 4.6 Chloride 100 Carbon Dioxide 23.0 Anion Gap 7 BUN 19 H Creatinine 1.01 Estim Creat Clear Calc 98.85 Est GFR (MDRD) Af Amer 99 Est GFR (MDRD) Non-Af 82 BUN/Creatinine Ratio 18.8 Glucose 470 H* Calcium 9.4 Urine Color Yellow Urine Clarity Clear Urine pH 6.0 Ur Specific [place] 1.015 Urine Protein Negative Urine Glucose (UA) 1000 H Urine Ketones 5 H Urine Occult Blood 10 H Urine Nitrite Negative Urine Bilirubin Negative Urine Urobilinogen Normal Ur Leukocyte Esterase Negative Urine RBC 0 SEEN Urine WBC 0 SEEN Ur Squamous Epith Cells 0-5 SEEN Urine Bacteria 0 SEEN Urine Mucus 0 SEEN Acetone Level NEGATIVE POC Glucose 335 H 03/05/23 16:06 WBC RBC Hgb Hct MCV MCH MCHC RDW Std Deviation RDW Coeff of [place] Plt Count MPV Immature Gran % (Auto) Neut % (Auto) Lymph % (Auto) [place] % (Auto) Eos % (Auto) Baso % (Auto) Absolute Neuts (auto) Absolute Lymphs (auto) Nucleated RBC % Sodium Potassium Chloride Carbon Dioxide Anion Gap BUN Creatinine Estim Creat Clear Calc Est GFR (MDRD) Af Amer Est GFR (MDRD) Non-Af BUN/Creatinine Ratio Glucose Calcium Urine Color Urine Clarity Urine pH Ur Specific [place] Urine Protein Urine Glucose (UA) Urine Ketones Urine Occult Blood Urine Nitrite Urine Bilirubin Urine Urobilinogen Ur Leukocyte Esterase Urine RBC Urine WBC Ur Squamous Epith Cells Urine Bacteria Urine Mucus [place] Level POC Glucose 289 H <Dr. Brandon Benites MD - Last Filed: 03/05/23 15:25> MDM MDM Narrative Medical decision making narrative: Patient has history of type 2 diabetes and her blood sugars have been running high for 4 days. She is asymptomatic. She appears well and nontoxic with normal vital signs. Exam benign. CBC is WNL. Glucose is 470 with normal CO2 and anion gap and negative ketones. Sodium is 130 (corrected level 136). Differential: Diabetic hyperglycemia versus DKA I have personally performed a face to face assessment of the patient and have reviewed the RUPESH Note. I performed a substantive portion of the visit including all aspects of the following. My morales findings include: History is [52-year-old biological male with diabetes with elevated blood sugar. Denies vomiting, diarrhea or fever. No dysuria.] Exam is [middle-age male no acute distress vital signs stable afebrile. HEENT exam unremarkable. Neck nontender no lymphadenopathy. Lungs clear to auscultation. Heart regular rhythm no murmur. Rate about 70. Chest wall nontender. Abdomen soft nontender. Moving all 4 extremities. Calves are nontender without edema or cords. Neurologically patient is awake alert no focal motor deficits. 5 of 5 mountain services manager strength. Dorsi plantarflexion intact. Back nontender. Skin unremarkable no petechiae or purpura. No rashes.] Medical Decision Making [52-year-old diabetic with elevated blood sugar rule out DKA. IV fluids and insulin. Blood sugar return for 70. After insulin and fluids it is now around 335 to be rechecked.] Other additions or changes: [None] Lab Data Lab results narrative: CBC unremarkable. White count of 5. H&H 15 and 44. Chemistries show sodium 130 gap of 7 normal BUN of 19 creatinine 1. Glucose 470. UA no signs of infection. Serum ketones negative. Labs: Laboratory Results - last 24 hr 03/05/23 03/05/23 03/05/23 12:40 14:15 15:06 WBC 5.6 RBC 5.31 Hgb 15.0 Hct 44.8 MCV 84.4 MCH 28.2 MCHC 33.5 RDW Std Deviation 37.0 RDW Coeff of [place] 12.2 Plt Count 217 MPV 10.0 Immature Gran % (Auto) 0.400 Neut % (Auto) 62.0 Lymph % (Auto) 27.0 [place] % (Auto) 7.1 Eos % (Auto) 2.8 Baso % (Auto) 0.7 Absolute Neuts (auto) 3.5 Absolute Lymphs (auto) 1.52 Nucleated RBC % 0 Sodium 130 L Potassium 4.6 Chloride 100 Carbon Dioxide 23.0 Anion Gap 7 BUN 19 H Creatinine 1.01 Estim Creat Clear Calc 98.85 Est GFR (MDRD) Af Amer 99 Est GFR (MDRD) Non-Af 82 BUN/Creatinine Ratio 18.8 Glucose 470 H* Calcium 9.4 Urine Color Yellow Urine Clarity Clear Urine pH 6.0 Ur Specific [place] 1.015 Urine Protein Negative Urine Glucose (UA) 1000 H Urine Ketones 5 H Urine Occult Blood 10 H Urine Nitrite Negative Urine Bilirubin Negative Urine Urobilinogen Normal Ur Leukocyte Esterase Negative Urine RBC 0 SEEN Urine WBC 0 SEEN Ur Squamous Epith Cells 0-5 SEEN Urine Bacteria 0 SEEN Urine Mucus 0 SEEN [place]et[place] Level NEGATIVE POC Glucose 335 H 03/05/23 16:06 WBC RBC Hgb Hct MCV MCH MCHC RDW Std Deviation RDW Coeff of [place] Plt Count MPV Immature Gran % (Auto) Neut % (Auto) Lymph % (Auto) [place] % (Auto) Eos % (Auto) Baso % (Auto) Absolute Neuts (auto) Absolute Lymphs (auto) Nucleated RBC % Sodium Potassium Chloride Carbon Dioxide Anion Gap BUN Creatinine Estim Creat Clear Calc Est GFR (MDRD) Af Amer Est GFR (MDRD) Non-Af BUN/Creatinine Ratio Glucose Calcium Urine Color Urine Clarity Urine pH Ur Specific [place] Urine Protein Urine Glucose (UA) Urine Ketones Urine Occult Blood Urine Nitrite Urine Bilirubin Urine Urobilinogen Ur Leukocyte Esterase Urine RBC Urine WBC Ur Squamous Epith Cells Urine Bacteria Urine Mucus [place] Level POC Glucose 289 H Discharge Plan Triage Chief Complaint: Hyperglycemia ED Midlevel Provider: Kell Licona ED Provider: Brandon Benites Dx/Rx/DC Orders Clinical Impression: Diabetes mellitus with hyperglycemia Instructions: Diabetes Carbs Fats Protein, Blood Sugar Check Steps Prescriptions: No Action (DME) pen needle, diabetic [BD Ultra-Fine [place] Pen Needle] 32 gauge x 5/32 needle See Rx Instructions .Route Qty: 100 3RF Rx Instructions: daily lisinopril 10 MG tablet 10 mg PO DAILY estradiol 2 MG tablet 2 mg PO BID finasteride 5 MG tablet 5 mg PO DAILY Eliquis 5 mg tablet 5 mg PO BID Patient Comments: Take 1 tablet by mouth twice daily. insulin aspart U-100 100 unit/mL cartridge 5 unit subcut TID metoprolol tartrate 25 mg tablet 25 mg PO BID metformin 500 mg tablet 500 mg PO BID Levemir FlexTouch U-100 Insuln 100 unit/mL (3 mL) insulin pen 22 unit subcut QHS Stand Alone Forms: ED Work / School Excuse Primary Care Provider: Care Physician,No Primary Referrals: NOT,DEFINED [Non-Staff] - Activity Restrictions/Additional Instructions: You were given an additional 10 units of insulin and IV fluids to bring down your blood sugars. Please monitor and give additional insulin as needed. Be cautious and check sugars frequently. Follow-up with your PCP this week. Disposition Disposition: Home, Self Care Discharge Date/Time: 03/05/23 16:24
[2023-03-05] MEDS: 0.9% Normal Saline (1000mL) 1,000 ML 999 ML IV (12:52)
--- OUTSIDE RECORDS SUMMARY | 2023-03-05 12:55 | XMS RPT_ITS | CCD ---
Author Name Unknown Address [address] [place] [address] Organization [facility] Care Team Providers Care Guest Services Attendant Name Role Phone PROVIDER, UNKNOWN Attending Unavailable PROVIDER, UNKNOWN Admitting Unavailable PATIENT, SELF Referring Unavailable MALYS, KELL Primary Care Unavailable [place]imm[place] [facility]TER.[facility], [place] Primary Care Provide r Alem Mathias RN Unavailable Unavailable [place] [facility] Primary Care Provide r Dimmock S[employer]TER.[facility], [place] Primary Care Provide r Dimmock S[employer] S[employer]TER.[facility], [place] Primary Care Provide r Mey SANCHEZ, Alem Unavailable Unavailable Malys, Kell Primary Care Provider [phone] Carolyn SANCHEZ, Alem Goldstein Unavailable Unavaila ble [facility] [place] Primary Care Unavailable CHRISTINE, ALVIN Referring Unavailable DIMORCK, LATOYA Primary Care Unavailable CHRISTINE, ALVIN Referring Unavailable CHRISTINE, ALVIN Referring Unavailable [facility], [place]A Primary Care Unavailable [facility] [place] Primary Care Unavailable VADIM MACK Attending Unavailable [facility] Primary Care Unavailable MARIANO, ANNETTE WOODWARDE Referring Unavailable DIMMOCK, LATOYA Primary Care Unavailable ABIGAIL CERVANTES Attending Unavailable [facility] [place] Primary Care Unavailable MEL BAIN Attending Unavailable DIMMO, LATOYA Primary Care Unavailable MEL BAIN Referring Unavailable DIMMOCK, LATOYA Primary Care Unavailable ANNETTE QUINTANAE Attending Unavailable [facility] Primary Care Unavailable ABIGAIL GOMEZ Referring Unavailable DIMMOCK, LATOYA Primary Care Unavailable DIMMOCK, LATOYA Attending Unavailable DIMMOCK, LATOYA Primary Care Unavailable DUNCAN ARIZMENDI Referring Unavailable DIMMOCK, LATOYA Primary Care Unavailable Roldan MIN Attending Unavailable Roldan MIN Admitting Unavailable DIMMOCK, LATOYA Primary Care Unavailable DIMMOCK, LATOYA Referring Unavailable ALVIN KING Attending Unavailable DIMMOCK, LATOYA Primary Care Unavailable MILAD THOMPSON Referring Unavailable DIMMOCK, LATOYA Attending Unavailable DIMMOCK, LATOYA Primary Care Unavailable DIMMOCK, LATOYA Primary Care Unavailable DIMMOCK, LATOYA Attending Unavailable ALVIN KING Attending Unavailable DIMMOCK, LATOYA Primary Care Unavailable MILAD THOMPSON Referring Unavailable DIMMOCK, LATOYA Primary Care Unavailable ALVIN KING Referring Unavailable DIMMOCK, LATOYA Primary Care Unavailable GUNNAR GUTHRIE Referring Unavailable DIMMOCK, LATOYA Primary Care Unavailable GUNNAR GUTHRIE Referring Unavailable DIMMOCK, LATOYA Primary Care Unavailable GUNNAR GUTHRIE Attending Unavailable [facility] Primary Care Unavailable MEL BAIN Attending Unavailable ANNETTE QUINTANA Referring Unavailable DIMMOCK, LATOYA Primary Care Unavailable MEL BAIN Referring Unavailable Allergies Allergy Classification Reported Allergen(s) Allergy Type Date of Onset Reaction(s) Facility (20 sources) atorvastatin; 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ATORVASTATIN] Drug Allergy 5 Myalgia, Myalgias [facility] Rep[facility] (20 sources) Penicillins; 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PENICILLINS] Propensity to adverse reactions to drug (disorder) [address] [facility] Medications Current Medications Medication Drug Class(es) Dates Sig (Normalized) Sig (Original) finasteride 5 mg oral tablet (20 sources) 5-alpha Reductase Inhibitor Start: 07-29-2017 End: 11-24-2023 take 1 tablet by mouth once daily finasteride (PROSCAR) 5 mg tablet Indications: Gender dysphoria , Encounter for long-term (current) use of high-risk medication Take 1 tablet by mouth once daily. 90 tablet 3 11/24/2022 11/24/2023 Active Completed/Discontinued Medications Medication Drug Class(es) Dates Sig (Normalized) Sig (Original) apixaban 5 mg oral tablet (20 sources) Factor Xa Inhibitor Start: 11-04-2022 take 1 tablet by mouth twice daily ELIQUIS 5 mg tab(s) Indications: Atrial flutter, unspecified type (HCC) take 1 tablet by mouth twice daily 60 tablet 5 11/04/2022 Active Problems Active Problems Problem Classification Problem Date Documented Date Episodic/Chronic Blindness and vision defects (3 sources) Bilateral hyperopia of eyes; 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Hypermetropia, bilateral] 12-14-2022 Episodic Cardiac dysrhythmias (20 sources) Atrial flutter; 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Unspecified atrial flutter] Onset: 03-24-2022 Chronic Diabetes mellitus with complications (2 sources) Type 2 diabetes mellitus with diabetic neuropathy, unspecified; 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Type 2 diabetes mellitus with hyperglycemia] Onset: 02-23-2022 Chronic Diabetes mellitus without complication (20 sources) Type 2 diabetes mellitus; 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Type 2 diabetes mellitus without complications] Onset: 05-13-2021 05-13-2021 Chronic Disorders of lipid metabolism (20 sources) Mixed hyperlipidemia; 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Mixed hyperlipidemia] Onset: 03-08-2014 06-17-2017 Chronic Essential hypertension (20 sources) Hypertensive disorder; 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Essential (primary) hypertension] 08-23-2018 Chronic Genitourinary symptoms and ill-defined conditions (2 sources) Nocturia; 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Nocturia] Episodic Immunizations and screening for infectious disease (2 sources) Anti-nuclear factor positive; 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Other specified abnormal immunological findings in serum] Episodic Miscellaneous mental health disorders (20 sources) 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; 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Xelm-rm-ephmts transsexual person on hormone therapy] Onset: 06-06-2013 Resolved: 11-12-2015 08-23-2018 Chronic Other aftercare (16 sources) Patient encounter status; 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Other usp (current) drug therapy] Onset: 09-05-2014 Episodic Other congenital anomalies (20 sources) Gonadal dysgenesis; 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44, XX true hermaphrodite] Onset: 08-12-2017 08-12-2017 Chronic Other connective tissue disease (1 source) Cramp in lower limb; 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Cramp and spasm] Episodic Other liver diseases (20 sources) Steatosis of liver; 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Fatty (change of) liver, not elsewhere classified] Onset: 05-07-2016 06-17-2017 Chronic Other liver diseases (3 sources) Hepatic fibrosis; 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Hepatic fibrosis] Onset: 03-11-2022 Chronic Other liver diseases (1 source) Fatty (change of) liver, not elsewhere classified; 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Hepatic steatosis] Onset: 06-17-2017 Chronic Other liver diseases (9 sources) Elevated liver enzymes level; 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Abnormal levels of other serum enzymes] Episodic Other nutritional; endocrine; and metabolic disorders (2 sources) Severe obesity; 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Morbid (severe) obesity due to excess calories] Chronic Other nutritional; endocrine; and metabolic disorders (20 sources) Obese class II; 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Obesity, unspecified] Onset: 03-24-2022 Chronic Residual codes; unclassified (20 sources) Sleep apnea; 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Sleep apnea, unspecified] Onset: 03-21-2013 02-02-2021 Chronic Residual codes; unclassified (1 source) Other specified health status; 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Other drug allergy] Episodic Past or Other Problems Problem Classification Problem Date Documented Da te Episodic/Chronic Diabetes mellitus without complication (5 sources) Prediabetes; 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Prediabetes] Onset: 07-17-2019 Episodic Other aftercare (1 source) detention (current) use of insulin; 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Type 2 diabetes mellitus with diabetic neuropathy, with long-term current use of insulin (HCC)] Onset: 03-24-2022 Episodic Other aftercare (1 source) Other intermediate designer (current) drug therapy; 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Encounter for long-term (current) use of high-risk medication] Onset: 07-22-2022 Episodic Other liver diseases (1 source) Abnormal levels of other serum enzymes; 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Elevated liver enzymes] Onset: 03-05-2022 Episodic Other screening for suspected conditions (not mental disorders or infectious disease) (20 sources) Other specified abnormal findings of blood chemistry; 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Other abnormal blood chemistry] Onset: 09-05-2014 Resolved: 05-07-2016 Episodic Results Test Name Value Interpretation Reference Range Facil ity Vital Signs Date Time Vital Sign Value Performing Clinician Millicent ledesma 01-19-2023 14:05-0500 Body weight 113.26 kg Mel Monzon MD Work Phone: [facility] 01-19-2023 14:05-0500 Diastolic blood pressure 81 mm[Hg] Mel Monzon MD Work Phone: [facility] 01-19-2023 14:05-0500 Heart rate 70 /min Mel Monzon MD Work Phone: [facility] 01-19-2023 14:05-0500 Systolic blood pressure 120 mm[Hg] Mel Monzon MD Work Phone: [facility] 11-24-2022 13:00-0400 Body weight 113.4 kg Gunnar Guthrie MD Work Phone: [facility] 11-24-2022 13:00-0400 Diastolic blood pressure 78 mm[Hg] Gunnar Guthrie MD Work Phone: [facility] 11-24-2022 13:00-0400 Heart rate 63 /min Gunnar Guthrie MD Work Phone: [facility] 11-24-2022 13:00-0400 Respiratory rate 16 /min Gunnar Guthrie MD Work Phone: [facility] 11-24-2022 13:00-0400 Systolic blood pressure 117 mm[Hg] Gunnar Guthrie MD Work Phone: [facility] 04-21-2022 09:25-0400 Body weight 111.95 kg Vadim Mack MD Work Phone: [facility] 04-21-2022 09:25-0400 Diastolic blood pressure 82 mm[Hg] Vadim Mack MD Work Phone: [facility] 04-21-2022 09:25-0400 Heart rate 55 /min Vadim Mack MD Work Phone: [facility] 04-21-2022 09:25-0400 Respiratory rate 16 /min Vadim Mack MD Work Phone: [facility] 04-21-2022 09:25-0400 Systolic blood pressure 131 mm[Hg] Vadim Mack MD Work Phone: [facility] 02-21-2023 15:21-0500 Body temperature 98.1 [degF] NA Paratore DO Work Phone: [facility] 03-30-2022 15:21-0500 Diastolic blood pressure 87 mm[Hg] NA Paratore DO Work Phone: [facility] 03-30-2022 15:21-0500 Heart rate 78 /min NA Paratore DO Work Phone: [facility] 03-30-2022 15:21-0500 Respiratory rate 18 /min NA Paratore DO Work Phone: [facility] 03-30-2022 15:21-0500 SaO2% (BldA) [Mass fraction] 97 % NA Paratore DO Work Phone: [facility] 03-30-2022 15:21-0500 Systolic blood pressure 137 mm[Hg] NA Paratore DO Work Phone: [facility] 03-25-2022 14:54-0500 Body weight 111.13 kg Mel Monzon MD Work Phone: [facility] 03-25-2022 14:54-0500 Diastolic blood pressure 78 mm[Hg] Mel Monzon MD Work Phone: [facility] 03-25-2022 14:54-0500 Heart rate 61 /min Mel Monzon MD Work Phone: [facility] 03-25-2022 14:54-0500 Systolic blood pressure 118 mm[Hg] Mel Monzon MD Work Phone: [facility] 03-24-2022 14:58-0500 Body temperature 97.59 [degF] Annette Quintana MD Work Phone: [facility] 03-24-2022 14:58-0500 Body weight 110.22 kg Annette Quintana MD Work Phone: [facility] 03-24-2022 14:58-0500 Diastolic blood pressure 71 mm[Hg] Annette Quintana MD Work Phone: [facility] 03-24-2022 14:58-0500 Heart rate 49 /min Annette Quintana MD Work Phone: [facility] 03-24-2022 14:58-0500 Respiratory rate 14 /min Annette Quintana MD Work Phone: [facility] 03-24-2022 14:58-0500 Systolic blood pressure 132 mm[Hg] Annette Quintana MD Work Phone: [facility] 03-05-2022 11:41-0500 Body height 170.2 cm Alvin [place] PA-C Work Phone: [facility] 03-05-2022 11:41-0500 Body temperature 96.4 [degF] Alvin Christine PA-C Work Phone: [facility] 03-05-2022 11:41-0500 Body weight 111.68 kg Alvin [place] PA-C Work Phone: [facility] 03-05-2022 11:41-0500 Diastolic blood pressure 82 mm[Hg] Alvin [place] PA-C Work Phone: [facility] 03-05-2022 11:41-0500 Heart rate 64 /min Alvin [place] PA-C Work Phone: [facility] 03-05-2022 11:41-0500 SaO2% (BldA) [Mass fraction] 94 % Alvin [place] PA-C Work Phone: [facility] 03-05-2022 11:41-0500 Systolic blood pressure 133 mm[Hg] Alvin Christine PA-C Work Phone: [facility] 03-05-2022 09:19-0500 Body temperature 96.69 [degF] Latoya Avila APRN.LEAF BLENDER Work Phone: [facility] 03-05-2022 09:19-0500 Body weight 111.22 kg Latoya Avila APRN.CNP Work Phone: [facility] 03-05-2022 09:19-0500 Diastolic blood pressure 71 mm[Hg] Latoya Avila APRN.LEAF BLENDER Work Phone: [facility] 03-05-2022 09:19-0500 Heart rate 81 /min Latoya Avila SPOOL SORTER.LEAF BLENDER Work Phone: [facility] 03-05-2022 09:19-0500 Respiratory rate 16 /min Latoya Avila SPOOL SORTER.LEAF BLENDER Work Phone: [facility] 03-05-2022 09:19-0500 Systolic blood pressure 108 mm[Hg] Latoya Avila SPOOL SORTER.LEAF BLENDER Work Phone: [facility] Encounters Encounter Date Encounter Type Care Provider Facility Start: 02[facility]10-2023 [facility] Start: 01-19-2023 End: 01-19-2023 [facility] Facility:[facility] Start: 01-19-2023 End: 01-19-2023 Patient encounter procedure Mel Bain MD Work Phone: Cardiology Procedures Date Procedure Procedure Detail Performing Clinician Start: 12-09-2022 Screening mammograph y bi 2-view breast inc cad Gunnar Guthrie MD Work Phone: Start: 03-30-2022 Gluc bld gluc mntr d ev cleared fda spec home use D A Paratore DO Work Phone: Start: 03-25-2022 Radiologic exam ches t 2 views Mel Bain MD Work Phone: Start: 03-11-2022 Us abdominal real ti me w/image limited Alvin Melgarser PA-C Work Phone: Start: 03-05-2022 Liver elastography w /o imag w/i&r Alvin Melgarser PA-C Work Phone: Start: 05-14-2021 Us abdominal real ti me w/image limited Latoya Avila APRNEmekaLEAF BLENDER Work Phone: Start: 05-08-2021 Adult depression scr eening assessment Latoya Avila APRN.LEAF BLENDER Work Phone: Start: 07-10-2020 Mammography Latoya Avila APRN.LEAF BLENDER Work Phone: Start: 04-12-2020 Adult depression scr eening assessment Latoya Avila APRN.CNP Work Phone: Plan of Treatment Date Care Activity Detail Author Start: 08-18-2028 Tetanus vaccination Tetanus (T d or Tdap) Booster [facility] Start: 08-18-2028 Urine microalbumin profile [facility] Start: 04-14-2025 LIPID SCREEN LIPID SCREEN [facility] Start: 05-11-2024 DIABETES SCREEN DIABETES SCREEN [facility] Start: 04-30-2024 DIABETES SCREEN DIABETES SCREEN [facility] Start: 12-15-2023 Glaucoma screening Dilated Retinal E xam [facility] Start: 12-15-2023 Hepatitis C antibody , confirmatory test Dilated Retinal Exam [facility] Start: 11-25-2023 Annual PCP Team Slot Editor dulce Disease Visit Annual PCP Team Chronic Disease Visit [facility] Start: 11-25-2023 BP Controlled (<130/80) BP Controlle d (<130/80) [facility] Start: 11-25-2023 Covid-19 Vaccine ( season) Covid-19 Vaccine ( season) [facility] Immunizations Immunization Date Immunization Notes Care Provider Flor garcia 10-15-2020 COVID-19 vaccine, ag e 12+ yr (PFIZER-BIONTECH - PURPLE TOP) Latoya Avila APRN.LEAF BLENDER Work Phone: [facility] 09-23-2020 COVID-19 vaccine, ag e 12+ yr (PFIZER-BIONTECH - PURPLE TOP) Latoya Avila APRN.LEAF BLENDER Work Phone: [facility] 10-16-2019 influenza virus vaccine, unspecified formulation Gunnar Guthrie MD Work Phone: [facility] 08-18-2018 tetanus toxoid, redu moody diphtheria toxoid, and acellular pertussis vaccine, adsorbed Latoya Avila APRN.LEAF BLENDER Work Phone: [facility] 02-16-2018 influenza virus vaccine, unspecified formulation Latoya Avila APRN.LEAF BLENDER Work Phone: [facility] Work Phone: Payers Date Payer Category Payer Medicaid [id number] 2018 Medicaid [employer] [id number] 2018-Present [phone] [address] [place] [address] Medicaid [id number] 2018 Medicaid [id number] 2013 Medicaid [id number] 2013 Medicaid [id number] 1968 Unknown [id number] Social History Date Type Detail Facility Start: 06-22-2017 End: 03-05-2022 Tobacco smoking status NHIS Ex-smoker [facility] History of tobacco use Cigarette Smoker [facility] Start: 06-22-2017 End: 07-14-2022 Cigarettes smoked current (pack per day) - Reported 0.5 [facility] Start: 06-22-2017 End: 03-05-2022 Tobacco use and exposure Smokeless tobacco non-user [facility] Start: 10-23-2020 End: 01-19-2023 Alcohol intake Current non-drinker of alcohol (finding) [facility] Start: 10-14-2019 End: 04-12-2020 History SDOH Alcohol Frequency 1 [facility] Start: 10-14-2019 History SDOH Alcohol Std Drinks 98 [facility] Start: 10-14-2019 End: 01-13-2021 History SDOH Social Connections Phone 2 [facility] Start: 10-14-2019 End: 03-04-2022 History SDOH Physical Activity DPW 5 [facility] Start: 10-14-2019 History SDOH Physica l Activity MPS 15 [facility] Start: 10-14-2019 History SDOH Financial 4 [facility] Start: 10-14-2019 Education 12 [facility] Start: 08-18-2018 End: 03-05-2022 Tobacco Comment quit 2011 [facility] Start: 1970 Sex Assigned At Choose not to disclose [facility] Start: 04-20-2021 End: 09-16-2021 Exposure to SARS-CoV-2 (event) Not sure [facility] Work Phone: Start: 1970 Sex Assigned At Male C [facility] History of tobacco use Current smoker [facility] Work Phone: Start: 03-04-2022 History SDOH Alcohol Std Drinks 0 [facility] Start: 03-04-2022 History SDOH Physica l Activity MPS 9 [facility] Start: 03-04-2022 History SDOH Housing Unable to Pay 3 [facility] Start: 1970 Sex Assigned At Female C [facility] Work Phone: Start: 03-03-2022 End: 07-14-2022 Social connection and isolation panel [facility] In a typical week, h ow many times do you talk on the telephone with family, friends, or neighbors? Patient refused [facility] Are you now , , , , never or living with a partner? Refused [facility] How often to you hav e a drink containing alcohol? Never [facility] (I/We) worried jessie er (my/our) food would run out before (I/we) got money to buy more. DK or Refused [facility] Start: 08-18-2018 Gender identity Identifies as female gender (finding) [facility] Work Phone: Start: 03-09-2022 Sexual orientation Choose not to dis close [facility] Medical Equipment Procedure Code Equipment Code Equipment Origin al Text Equipment Identifier Dates Start: 06-19-2021 End: 09-15-2022 Clinical Notes 07-17-2019 to 01-19-2023 Mel Bain V, MD - 01/19/2023 2:00 PM ESTTelephone Encounter - Violeta Beltran LPN - 01/03/2023 7:11 AM Abigail Spencer OD - 12/14/2022 10:02 AM ESTPatient InstructionsPatient Instructions Note Date & Type Note Facility 01-19-2023 Note HNO ID: [id number] Author: Mel Bain V, MD Service: ? Author Type: Physician Type: Progress Notes Filed: 01/19/2023 3:18 PM Note Text: Referring Physician: No referring provider defined for this encounter. Primary Care Physician: Latoya Avila APRN.DEYA Graham is a 52 year old adult that presents today for followup of atrial flutter Was seen for a flutter ; lost to followup ; did not have echo done Feel ok Was supposed to have liver biopsy but did not have that either Diabetes mellitus better controlled Hypertension No chest pain or edema Hld mixed uncontrolled Did not feel a flutter when she was seen with it Took one dose of crestor and felt nauseated and stopped Reported myalgia with lipitor but could not recall that this happened ASSESSMENT/PLAN: 1. Typical atrial flutter (HCC) - ICD9: 427.32, ICD10: I48.3 (primary diagnosis) Continue doac because of diabetes mellitus and hypertension Echo to assess LV function Will do some type of monitor to check for recurrence and decide if we need to continue doac - ECHO 2. Mixed hyperlipidemia - ICD9: 272.2, ICD10: E78.2 - Uncontrolled Diet for now Recheck lipids at some point Will get ca score to assess burden of plaque If LFT remains stable , consider adding crestor again Need to followup with hepatology to assess stage of cirrhosis 3. Primary hypertension - ICD9: 401.9, ICD10: I10 - Controlled - Recommend home blood pressure monitoring, to bring results to next visit - Encouraged sodium restriction, DASH or Mediterranean diet - Recommend regular aerobic exercise 4. Type 2 diabetes mellitus with diabetic neuropathy, with long-term current use of insulin (HCC) - ICD9: 250.60, 357.2, V58.67, ICD10: E11.40, Z79.4 Controlled Continue diet and compliance to regimen Has followup with Dr Gonzalez : who will try to improve your diabetes mellitus regimen ? Include GLP 1 RA to help with fattyliver 5. Abnormal electrocardiogram - ICD9: 794.31, ICD10: R94.31 Calcium score to assess burden : if high : need to target LDL below 50 May have to use statin + zetia or pcsk9 inhibitor - CT CALCIUM SCORING SELF PAY ([place]) 6. Fatty liver - ICD9: 571.8, ICD10: K76.0 Followup with hepatology Mel Bain MD Current Medications: Current Outpatient Medications Medication Sig insulin lispro (ADMELOG SOLOSTAR U-100 INSULIN) 100 unit/mL Inject 4 Units subcutaneously three times a day before meals. lisinopril (ZESTRIL) 10 mg tablet Take 1 tablet by mouth once daily. finasteride (PROSCAR) 5 mg tablet Take 1 tablet by mouth once daily. ELIQUIS 5 mg tab(s) take 1 tablet by mouth twice daily metFORMIN (GLUCOPHAGE) 500 mg tablet Take 1 tablet by mouth twice daily with meals. metoprolol tartrate, short acting, (LOPRESSOR) 25 mg tablet Take 1 tablet by mouth twice daily. alcohol swabs Use with blood glucose test once daily. Insulin Dep? No UNIFINE PENTIPS PLUS 32 gauge x 5/32 Inject 1 Each subcutaneously once daily. USE DIRECTED. estradiol (ESTRACE) 2 mg tablet Take 1 tablet by mouth once daily. insulin detemir U-100 (LEVEMIR FLEXTOUCH U-100 INSULIN) 100 unit/mL (3 mL) injection pen Inject 22 Units subcutaneously daily at bedtime. Lancets lancets Use with blood glucose test once daily. Insulin Dep? No blood sugar diagnostic test strip Use with blood glucose test once daily, Insulin Dep? No mvlqa-1r-xsy-epa-fish oil (OMEGA-3 FISH OIL) 300-1,000 mg cap Take 1 capsule by mouth once daily. COMPOUNDED PRESCRIPTION Initiate CPAP @ 13 cm of water with humidification mask (per patient preference) optional chin strap (if indicated) and lifetime supplies DX: BE 327.23 Current Facility-Administered Medications Medication Dose Route Frequency perflutren lipid microspheres 1.3 mL in NaCl (PF) 0.9% 10 mL injection (DEFINITY) INTRAVENOUS DIRECTED PRN sodium chloride 0.9 % (flush) 10 mL (BD POSIFLUSH) 10 mL INTRAVENOUS DIRECTED PRN PHYSICAL EXAMINATION: Vital Signs: BP 120/81 Pulse 70 Wt 113.3 kg (249 lb 11.2 oz) BMI 39.11 kg/m? Body mass index is 39.11 kg/m?. GENERAL: Alert, oriented., Well appearing. No jaundice, anemia, clubbing, or cyanosis. HEENT: no lymphadenopathy. NECK: no JVD, No masses, or thyromegaly. Good carotid upstrokes. no carotid bruit. No lymphadenopathy. CARDIAC: regular CHEST: Chest clear to auscultation. ABDOMEN: Soft, nontender, with no obvious organomegaly or masses. No epigastric bruit. EDEMA: No edema PERIPHERAL PULSES: 2+ SKIN: warm peripheries, no rash. NEURO: no focal neurological deficit ECG today: see epic result Allergies: ALLERGIES Allergen Reactions Atorvastatin Myalgia Severe muscle cramps Penicillins Unknown Social History: TOBACCO: see epic ALCOHOL: see epic ROS: Card: See present history. Pulm:No cough or sputum production Gastro:no bowel changes. GenUr:no urinary symptoms. Endo:no chronic fatigue, significant w (more content not included)... [facility] 01-19-2023 History of Present illness Narrative Images from the original note were not included. Referring Physician: No referring provider defined for this encounter. Primary Care Physician: Latoya Avila APRN.DEYA Isai Graham is a 52 year old adult that presents today for followup of atrial flutter Was seen for a flutter ; lost to followup ; did not have echo done Feel ok Was supposed to have liver biopsy but did not have that either Diabetes mellitus better controlled Hypertension No chest pain or edema Hld mixed uncontrolled Did not feel a flutter when she was seen with it Took one dose of crestor and felt nauseated and stopped Reported myalgia with lipitor but could not recall that this happened ASSESSMENT/PLAN: 1. Typical atrial flutter (HCC) - ICD9: 427.32, ICD10: I48.3 (primary diagnosis) Continue doac because of diabetes mellitus and hypertension Echo to assess LV function Will do some type of monitor to check for recurrence and decide if we need to continue doac - ECHO 2. Mixed hyperlipidemia - ICD9: 272.2, ICD10: E78.2 - Uncontrolled Diet for now Recheck lipids at some point Will get ca score to assess burden of plaque If LFT remains stable , consider adding crestor again Need to followup with hepatology to assess stage of cirrhosis 3. Primary hypertension - ICD9: 401.9, ICD10: I10 - Controlled - Recommend home blood pressure monitoring, to bring results to next visit - Encouraged sodium restriction, DASH or Mediterranean diet - Recommend regular aerobic exercise 4. Type 2 diabetes mellitus with diabetic neuropathy, with long-term current use of insulin (HCC) - ICD9: 250.60, 357.2, V58.67, ICD10: E11.40, Z79.4 Controlled Continue diet and compliance to regimen Has followup with Dr Gonzalez : who will try to improve your diabetes mellitus regimen ? Include GLP 1 RA to help with fattyliver 5. Abnormal electrocardiogram - ICD9: 794.31, ICD10: R94.31 Calcium score to assess burden : if high : need to target LDL below 50 May have to use statin + zetia or pcsk9 inhibitor - CT CALCIUM SCORING SELF PAY ([place]) 6. Fatty liver - ICD9: 571.8, ICD10: K76.0 Followup with hepatology Mel Bain MD Current Medications: Current Outpatient Medications Medication Sig insulin lispro (ADMELOG SOLOSTAR U-100 INSULIN) 100 unit/mL Inject 4 Units subcutaneously three times a day before meals. lisinopril (ZESTRIL) 10 mg tablet Take 1 tablet by mouth once daily. finasteride (PROSCAR) 5 mg tablet Take 1 tablet by mouth once daily. ELIQUIS 5 mg tab(s) take 1 tablet by mouth twice daily metFORMIN (GLUCOPHAGE) 500 mg tablet Take 1 tablet by mouth twice daily with meals. metoprolol tartrate, short acting, (LOPRESSOR) 25 mg tablet Take 1 tablet by mouth twice daily. alcohol swabs Use with blood glucose test once daily. Insulin Dep? No UNIFINE PENTIPS PLUS 32 gauge x 5/32 Inject 1 Each subcutaneously once daily. USE DIRECTED. estradiol (ESTRACE) 2 mg tablet Take 1 tablet by mouth once daily. insulin detemir U-100 (LEVEMIR FLEXTOUCH U-100 INSULIN) 100 unit/mL (3 mL) injection pen Inject 22 Units subcutaneously daily at bedtime. Lancets lancets Use with blood glucose test once daily. Insulin Dep? No blood sugar diagnostic test strip Use with blood glucose test once daily, Insulin Dep? No kyzta-9d-rvi-epa-fish oil (OMEGA-3 FISH OIL) 300-1,000 mg cap Take 1 capsule by mouth once daily. COMPOUNDED PRESCRIPTION Initiate CPAP @ 13 cm of water with humidification mask (per patient preference) optional chin strap (if indicated) and lifetime supplies DX: BE 327.23 Current Facility-Administered Medications Medication Dose Route Frequency perflutren lipid microspheres 1.3 mL in NaCl (PF) 0.9% 10 mL injection (DEFINITY) INTRAVENOUS DIRECTED PRN sodium chloride 0.9 % (flush) 10 mL (BD POSIFLUSH) 10 mL INTRAVENOUS DIRECTED PRN PHYSICAL EXAMINATION: Vital Signs: BP 120/81 Pulse 70 Wt 113.3 kg (249 lb 11.2 oz) BMI 39.11 kg/m Body mass index is 39.11 kg/m . GENERAL: Alert, oriented., Well appearing. No jaundice, anemia, clubbing, or cyanosis. HEENT: no lymphadenopathy. NECK: no JVD, No masses, or thyromegaly. Good carotid upstrokes. no carotid bruit. No lymphadenopathy. CARDIAC: regular CHEST: Chest clear to auscultation. ABDOMEN: Soft, nontender, with no obvious organomegaly or masses. No epigastric bruit. EDEMA: No edema PERIPHERAL PULSES: 2+ SKIN: warm peripheries, no rash. NEURO: no focal neurological deficit ECG today: see epic result Allergies: ALLERGIES Allergen Reactions Atorvastatin Myalgia Severe muscle cramps Penicillins Unknown Social History: TOBACCO: see epic ALCOHOL: see epic ROS: Card: See present history. Pulm:No cough or sputum production Gastro:no bowel changes. GenUr:no urinary symptoms. Endo:no chronic fatigue, significant weight loss/gain, heat/cold intolerance. Neuro:no focal weakness, focal sensory loss, headache, visual changes, seizure activity, ataxia, speech/language loss. Rheum:no joint swelling, back pain, knee pain, hip pain, or neck pain. Infect:no fevers, chills, rigors or night sweats. Skin:no rash Heme:no bruising LIPIDS: Triglyceride (mg/dL) Date Value 02/23/2022 147 Cholesterol, Total (mg/dL) Date Value 02/23/2022 227 (H) HDL Cholesterol (mg/dL) Date Value 02/23/2022 40 LDL Cholesterol (mg/dL) Date Value 02/23/2022 158 (H) Mel Bain MD documented in this encounter [facility] 01-03-2023 Miscellaneous Notes Pharmacy electronically requests the following refill(s) Last ov 11/24/22 Future 04/21/23 Requested Prescriptions Pending Prescriptions Disp Refills insulin lispro (ADMELOG SOLOSTAR U-100 INSULIN) 100 unit/mL 12 mL 2 Sig: Inject 4 Units subcutaneously three times a day before meals. Violeta Beltran LPN documented in this encounter [facility] 12-14-2022 Note HNO ID: [id number] Author: Abigail Cervantes OD Service: ? Author Type: TITLE ONE READING TEACHER Type: Progress Notes Filed: 12/14/2022 10:02 AM Note Text: 1. Type 2 diabetes mellitus without retinopathy (HCC) Risk of diabetic changes and vision loss can be minimized by tight control of blood sugar, blood pressure, and cholesterol levels. Educated patient to continue care with primary care doctor and/or nodulizer to maintain optimum levels as they are important to avoid ocular complications. Encouraged patient to call the office immediately with any changes to vision or visual concerns. Advised to not wait until the next scheduled exam. 2. Hypermetropia, bilateral 3. Regular astigmatism of both eyes 4. Presbyopia Finalized spec rx Follow-up in 1 year for diabetic eye exam or sooner as needed Abigail Cervantes, VIELKA December 14, 2022 10:02 AM [facility] 12-14-2022 History of Present illness Narrative 1. Type 2 diabetes mellitus without retinopathy (HCC) Risk of diabetic changes and vision loss can be minimized by tight control of blood sugar, blood pressure, and cholesterol levels. Educated patient to continue care with primary care doctor and/or nodulizer to maintain optimum levels as they are important to avoid ocular complications. Encouraged patient to call the office immediately with any changes to vision or visual concerns. Advised to not wait until the next scheduled exam. 2. Hypermetropia, bilateral 3. Regular astigmatism of both eyes 4. Presbyopia Finalized spec rx Follow-up in 1 year for diabetic eye exam or sooner as needed Abigail Cervantes OD December 14, 2022 10:02 AM documented in this encounter [facility] 12-14-2022 Instructions Abigail Cervantes OD - 12/14/2022 10:00 AM EST Use Systane Complete or Refresh Relieva 2-3 times daily or as needed documented in this encounter [facility] 12-10-2022 Miscellaneous Notes December 13, 2022 PID: [id number] Isai Graham [address] [place] [id number] Dear Ms. Graham, We are pleased to inform you that the results of your recent breast imaging exam on 12/09/2022 are normal. Your mammogram demonstrates that you have dense breast tissue, which could hide abnormalities. Dense breast tissue, in and of itself, is a relatively common condition. Therefore, this information is not provided to cause undue concern; rather, it is to raise your awareness and promote discussion with your health care provider regarding the presence of dense breast tissue in addition to other risk factors. Early detection of cancer is very important. We also understand recommendations regarding breast cancer screening are controversial. Please discuss with your primary care provider which strategy is best for you and whether a mammogram is right for you. Your imaging studies and report will be kept on file at [facility] as part of your permanent medical record and are available for your continuing care. Thank you for allowing us to help in meeting your health care needs. Sincerely, Dr. Holliday Interpreting Radiologist [facility] (Normal over 40) documented in this encounter [facility] 12-09-2022 Note HNO ID: [id number] Author: Beth Burnett [employer] Service: ? Author Type: Smoke Jumper Type: Progress Notes Filed: 12/09/2022 9:09 AM Note Text: Radiology Service Progress Note PATIENT NAME: Isai Graham DATE OF SERVICE: December 09, 2022 TIME: 8:51 AM PATIENT IDENTITY VERIFICATION COMPLETED USING TWO (2) IDENTIFIERS: Name and Date of confirmed by patient verbally. FALL SCREENING: Has the patient had 2 falls in the last year or 1 fall with injury or currently using an Ambulatory Assistive Device (Walker, Cane, Wheelchair, Crutches, etc.)? No PATIENT GENDER DATA: Female. status: : No status: NO. PATIENT RELEVANT IMPLANT DATA REVIEWED: Not Applicable RADIOLOGY DEPARTMENT: Mammography PERIPHERAL IV DATA: Not applicable SIGNED BY: Neo HilliardAbove Security December 09, 2022 8:51 AM [facility] 12-09-2022 History of Present illness Narrative Radiology Service Progress Note PATIENT NAME: Isai Graham DATE OF SERVICE: December 09, 2022 TIME: 8:51 AM PATIENT IDENTITY VERIFICATION COMPLETED USING TWO (2) IDENTIFIERS: Name and Date of confirmed by patient verbally. FALL SCREENING: Has the patient had 2 falls in the last year or 1 fall with injury or currently using an Ambulatory Assistive Device (Walker, Cane, Wheelchair, Crutches, etc.)? No PATIENT GENDER DATA: Female. status: : No status: NO. PATIENT RELEVANT IMPLANT DATA REVIEWED: Not Applicable RADIOLOGY DEPARTMENT: Mammography PERIPHERAL IV DATA: Not applicable SIGNED BY: Cherry Hilliard December 09, 2022 8:51 AM documented in this encounter [facility] 11-24-2022 Note HNO ID: [id number] Author: Larisa Oseguera Service: ? Author Type: ? Type: Progress Notes Filed: 11/24/2022 2:46 PM Note Text: Isai Graham is a 52 year old presenting for [facility] follow up. Previously a patient of ZELDA Avila. No new concerns today. Doing well on estradiol 2 mg and finasteride 5 mg. No side effects, dose is good. Has been on hormone therapy for about 10 years. Last mammogram 2020, normal. Trying to lose weight, but having a hard time doing so. 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 Knows a liver biopsy is needed, but has been apprehensive about this procedure. No difficulties with adherence, including to insulin injections. Objective: 11/24/22 1300 BP: 117/78 Pulse: 63 Resp: 16 Weight: 113.4 kg (250 lb) General: alert, no acute distress HEENT: NCAT, EOMI Cardiac: regular rate and rhythm, no murmurs Lungs: clear to auscultation bilaterally Extremities: no peripheral edema Labs: Component Latest Ref Rng AND Units 07/22/2022 Protein, Total 6.3 - 8.0 g/dL 7.3 Albumin 3.9 - 4.9 g/dL 4.2 Calcium 8.5 - 10.2 mg/dL 9.4 Bilirubin, Total 0.2 - 1.3 mg/dL 0.4 Alkaline Phosphatase 38 - 113 U/L 57 AST 14 - 40 U/L 41 (H) ALT 10 - 54 U/L 65 (H) Glucose 74 - 99 mg/dL 132 (H) BUN 9 - 24 mg/dL 14 Creatinine 0.73 - 1.22 mg/dL 0.87 Sodium 136 - 144 mmol/L 138 Potassium 3.7 - 5.1 mmol/L 4.5 Chloride 97 - 105 mmol/L 104 CO2 22 - 30 mmol/L 21 (L) Anion Gap 9 - 18 mmol/L 13 eGFR WBC 3.70 - 11.00 k/uL 5.79 RBC 4.20 - 6.00 m/uL 4.76 Hemoglobin 13.0 - 17.0 g/dL 14.2 Hematocrit 39.0 - 51.0 % 42.6 MCV 80.0 - 100.0 fL 89.5 MCH 26.0 - 34.0 pg 29.8 MCHC 30.5 - 36.0 g/dL 33.3 RDW-CV 11.5 - 15.0 % 12.4 Platelet Count 150 - 400 k/uL 202 MPV 9.0 - 12.7 fL 9.8 Absolute nRBC <0.01 k/uL <0.01 Hemoglobin A1C 4.3 - 5.6 % 6.0 (H) Estimated Average Glucose mg/dL 126 Estradiol 17B pg/mL 337 Testosterone ng/dL 98 Imaging: Abdominal US 03/2022 1. Hepatic steatosis with associated hepatomegaly. 2. Simple left renal cysts. 3. Spleen normal in size. Assessment and Plan: Isai Graham is a 52 year old following up for gender care and health maintenance. Type 2 diabetes mellitus with diabetic neuropathy, with long-term current use of insulin (HCC) -Well controlled, A1c 6.0 in July (from 8.8 a year ago). Doing well on insulin and metformin. - ENDOCRINE MEDICAL WEIGHT MANAGEMENT; Future - ALBUMIN/CREAT RATIO RND UR; Future Primary hypertension -BP well controlled on lisinopril. - lisinopril (ZESTRIL) 10 mg tablet; Take 1 tablet by mouth once daily. - ENDOCRINE MEDICAL WEIGHT MANAGEMENT; Future Gender dysphoria -Doing well on current medications, no side effects noted. Will continue at current doses. - finasteride (PROSCAR) 5 mg tablet; Take 1 tablet by mouth once daily. Encounter for long-term (current) use of high-risk medication - finasteride (PROSCAR) 5 mg tablet; Take 1 tablet by mouth once daily. Obesity, Class II, BMI 35-39.9 -Interested in weight management clinic for support with weight loss, especially in the setting of hepatic steatosis. - ENDOCRINE MEDICAL WEIGHT MANAGEMENT; Future Hepatic steatosis -Still considering biopsy, will schedule once ready. - ENDOCRINE MEDICAL WEIGHT MANAGEMENT; Future Encounter for screening mammogram for malignant neoplasm of breast -Last mammogram in July 2020, normal. - [facility] SCREENING; Future Larisa Oseguera, MS4 [facility] 11-24-2022 Note HNO ID: [id number] Author: Gunnar Guthrie MD Service: ? Author Type: Physician Type: Progress Notes Filed: 11/24/2022 4:56 PM Note Text: TEACHING PHYSICIAN NOTE OF PERSONAL INVOLVEMENT IN CARE: I have personally seen and examined the patient and performed the medical decision-making components. I have reviewed the medical student documentation and verified the findings in the note as written. Any additions or changes are noted in bold/italics. Signature: Gunnar Guthrie Date: 11/24/2022 Time: 1:05 PM FU visit for this 52 yo w/ PMH of T2DM (treated with insulin), HTN, NAFLD, a flutter (on chronic anticoagulation with apixiban) gender dysphoria. Her previous care was with ZELDA Avila (and before that Dr. Trevizo at [facility]) and is new to me. No concerns today. Feels estradiol and finasteride is working well for her gender care. Has been postponing liver Bx - has been apprehensive about this procedure. She continues to work on weight loss. Is open to Endo Weight Management. Stws she is adherent to insulin. Declines vaccines today. Sts she has been on GAHT since [id number]. BP 117/78 Pulse 63 Resp 16 Wt 113.4 kg (250 lb) BMI 39.16 kg/m? General: Alert in NAD Head: NCAT Eyes: EOMI, no conjunctivitis. Oropharynx: MMM, OP clear Neck: Supple w/o goiter or LAD. Heart: RRR S1 S2 No murmurs. Lungs: Normal chest rise, air exchange. CTAB. No adventitious sounds. Extremities: Warm and well perfused. No peripheral edema. PHOTOGRAPH DEVELOPER: Non-focal. Normal gait, station. Skin: No visible rashes. Component Latest Ref Rng AND Units 07/22/2022 Protein, Total 6.3 - 8.0 g/dL 7.3 Albumin 3.9 - 4.9 g/dL 4.2 Calcium 8.5 - 10.2 mg/dL 9.4 Bilirubin, Total 0.2 - 1.3 mg/dL 0.4 Alkaline Phosphatase 38 - 113 U/L 57 AST 14 - 40 U/L 41 (H) ALT 10 - 54 U/L 65 (H) Glucose 74 - 99 mg/dL 132 (H) BUN 9 - 24 mg/dL 14 Creatinine 0.73 - 1.22 mg/dL 0.87 Sodium 136 - 144 mmol/L 138 Potassium 3.7 - 5.1 mmol/L 4.5 Chloride 97 - 105 mmol/L 104 CO2 22 - 30 mmol/L 21 (L) Anion Gap 9 - 18 mmol/L 13 eGFR WBC 3.70 - 11.00 k/uL 5.79 RBC 4.20 - 6.00 m/uL 4.76 Hemoglobin 13.0 - 17.0 g/dL 14.2 Hematocrit 39.0 - 51.0 % 42.6 MCV 80.0 - 100.0 fL 89.5 MCH 26.0 - 34.0 pg 29.8 MCHC 30.5 - 36.0 g/dL 33.3 RDW-CV 11.5 - 15.0 % 12.4 Platelet Count 150 - 400 k/uL 202 MPV 9.0 - 12.7 fL 9.8 Absolute nRBC <0.01 k/uL <0.01 Hemoglobin A1C 4.3 - 5.6 % 6.0 (H) Estimated Average Glucose mg/dL 126 Estradiol 17B pg/mL 337 Testosterone ng/dL 98 RUQ US 2022: IMPRESSION: 1. Hepatic steatosis with associated hepatomegaly. 2. Simple left renal cysts. 3. Spleen normal in size. Mammogram 07/2020. IMPRESSION: NEGATIVE There is no mammographic evidence of malignancy. A 1 year screening mammogram is recommended. IMP/PLAN: Encounter Diagnosis ICD-10-CM 1. Type 2 diabetes mellitus with diabetic neuropathy, with long-term current use of insulin (HCC) E11.40 ENDOCRINE MEDICAL WEIGHT MANAGEMENT Z79.4 ALBUMIN/CREAT RATIO RND UR 2. Primary hypertension I10 lisinopril (ZESTRIL) 10 mg tablet ENDOCRINE MEDICAL WEIGHT MANAGEMENT 3. Gender dysphoria F64.9 finasteride (PROSCAR) 5 mg tablet 4. Encounter for long-term (current) use of high-risk medication Z79.899 finasteride (PROSCAR) 5 mg tablet 5. Obesity, Class II, BMI 35-39.9 E66.9 ENDOCRINE MEDICAL WEIGHT MANAGEMENT 6. Hepatic steatosis K76.0 ENDOCRINE MEDICAL WEIGHT MANAGEMENT 7. Encounter for screening mammogram for malignant neoplasm of breast Z12.31 [facility] SCREENING #HTN At goal Continue lisinopril 10 mg daily. #T2DM Continue current medications - metformin 500 mg BID Check urine alb/Cr. #NAFLD, Obesity Class 2 We discussed the multidisciplinary, inter-professional approach to weight management at the [facility]. The patient is amenable to a referral to Endocrine Weight Management. #GHM She declined all vaccines today. Mammogram ordered. FU in 3-6 months with new PCP. Medical Decision Making: Problems: Moderate: 2+ stable chronic illnesses Data: Unique test result(s) reviewed: 3+ Unique test(s) ordered: 3+ Risk: Moderate: Drug management and Moderate risk from testing/treatment Medical Decision Making Level: 4 - Moderate Gunnar Guthrie MD, MPH Director - [facility] [employer] [employer] [facility] - Transgender Surgery and Medicine Program [facility] Medicine [facility] Ger[facility] He/Him/They/Them [facility] 11-24-2022 Instructions Gunnar Guthrie MD - 11/24/2022 1:[address] Gonzalez - Endocrine Weight Management documented in this encounter [facility] 11-24-2022 History of Present illness Narrative Isai Graham is a 52 year old presenting for [facility] follow up. Previously a patient of ZELDA Avila. No new concerns today. Doing well on estradiol 2 mg and finasteride 5 mg. No side effects, dose is good. Has been on hormone therapy for about 10 years. Last mammogram 2020, normal. Trying to lose weight, but having a hard time doing so. 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 Knows a liver biopsy is needed, but has been apprehensive about this procedure. No difficulties with adherence, including to insulin injections. Objective: 11/24/22 1300 BP: 117/78 Pulse: 63 Resp: 16 Weight: 113.4 kg (250 lb) General: alert, no acute distress HEENT: NCAT, EOMI Cardiac: regular rate and rhythm, no murmurs Lungs: clear to auscultation bilaterally Extremities: no peripheral edema Labs: Component Latest Ref Rng & Units 07/22/2022 Protein, Total 6.3 - 8.0 g/dL 7.3 Albumin 3.9 - 4.9 g/dL 4.2 Calcium 8.5 - 10.2 mg/dL 9.4 Bilirubin, Total 0.2 - 1.3 mg/dL 0.4 Alkaline Phosphatase 38 - 113 U/L 57 AST 14 - 40 U/L 41 (H) ALT 10 - 54 U/L 65 (H) Glucose 74 - 99 mg/dL 132 (H) BUN 9 - 24 mg/dL 14 Creatinine 0.73 - 1.22 mg/dL 0.87 Sodium 136 - 144 mmol/L 138 Potassium 3.7 - 5.1 mmol/L 4.5 Chloride 97 - 105 mmol/L 104 CO2 22 - 30 mmol/L 21 (L) Anion Gap 9 - 18 mmol/L 13 eGFR WBC 3.70 - 11.00 k/uL 5.79 RBC 4.20 - 6.00 m/uL 4.76 Hemoglobin 13.0 - 17.0 g/dL 14.2 Hematocrit 39.0 - 51.0 % 42.6 MCV 80.0 - 100.0 fL 89.5 MCH 26.0 - 34.0 pg 29.8 MCHC 30.5 - 36.0 g/dL 33.3 RDW-CV 11.5 - 15.0 % 12.4 Platelet Count 150 - 400 k/uL 202 MPV 9.0 - 12.7 fL 9.8 Absolute nRBC <0.01 k/uL <0.01 Hemoglobin A1C 4.3 - 5.6 % 6.0 (H) Estimated Average Glucose mg/dL 126 Estradiol 17B pg/mL 337 Testosterone ng/dL 98 Imaging: Abdominal US 03/2022 1. Hepatic steatosis with associated hepatomegaly. 2. Simple left renal cysts. 3. Spleen normal in size. Assessment and Plan: Isai Graham is a 52 year old following up for gender care and health maintenance. Type 2 diabetes mellitus with diabetic neuropathy, with long-term current use of insulin (HCC) -Well controlled, A1c 6.0 in July (from 8.8 a year ago). Doing well on insulin and metformin. - ENDOCRINE MEDICAL WEIGHT MANAGEMENT; Future - ALBUMIN/CREAT RATIO RND UR; Future Primary hypertension -BP well controlled on lisinopril. - lisinopril (ZESTRIL) 10 mg tablet; Take 1 tablet by mouth once daily. - ENDOCRINE MEDICAL WEIGHT MANAGEMENT; Future Gender dysphoria -Doing well on current medications, no side effects noted. Will continue at current doses. - finasteride (PROSCAR) 5 mg tablet; Take 1 tablet by mouth once daily. Encounter for long-term (current) use of high-risk medication - finasteride (PROSCAR) 5 mg tablet; Take 1 tablet by mouth once daily. Obesity, Class II, BMI 35-39.9 -Interested in weight management clinic for support with weight loss, especially in the setting of hepatic steatosis. - ENDOCRINE MEDICAL WEIGHT MANAGEMENT; Future Hepatic steatosis -Still considering biopsy, will schedule once ready. - ENDOCRINE MEDICAL WEIGHT MANAGEMENT; Future Encounter for screening mammogram for malignant neoplasm of breast -Last mammogram in July 2020, normal. - [facility] SCREENING; Future Larisa Oseguera, MS4 TEACHING PHYSICIAN NOTE OF PERSONAL INVOLVEMENT IN CARE: I have personally seen and examined the patient and performed the medical decision-making components. I have reviewed the medical student documentation and verified the findings in the note as written. Any additions or changes are noted in bold/italics. Signature: Gunnar Guthrie Date: 11/24/2022 Time: 1:05 PM FU visit for this 52 yo w/ PMH of T2DM (treated with insulin), HTN, NAFLD, a flutter (on chronic anticoagulation with apixiban) gender dysphoria. Her previous care was with ZELDA Avila (and before that Dr. Trevizo at [facility]) and is new to me. No concerns today. Feels estradiol and finasteride is working well for her gender care. Has been postponing liver Bx - has been apprehensive about this procedure. She continues to work on weight loss. Is open to Endo Weight Management. Stws she is adherent to insulin. Declines vaccines today. Sts she has been on GAHT since [id number]. BP 117/78 Pulse 63 Resp 16 Wt 113.4 kg (250 lb) BMI 39.16 kg/m General: Alert in NAD Head: NCAT Eyes: EOMI, no conjunctivitis. Oropharynx: MMM, OP clear Neck: Supple w/o goiter or LAD. Heart: RRR S1 S2 No murmurs. Lungs: Normal chest rise, air exchange. CTAB. No adventitious sounds. Extremities: Warm and well perfused. No peripheral edema. PHOTOGRAPH DEVELOPER: Non-focal. Normal gait, station. Skin: No visible rashes. Component Latest Ref Rng & Units 07/22/2022 Protein, Total 6.3 - 8.0 g/dL 7.3 Albumin 3.9 - 4.9 g/dL 4.2 Calcium 8.5 - 10.2 mg/dL 9.4 Bilirubin, Total 0.2 - 1.3 mg/dL 0.4 Alkaline Phosphatase 38 - 113 U/L 57 AST 14 - 40 U/L 41 (H) ALT 10 - 54 U/L 65 (H) Glucose 74 - 99 mg/dL 132 (H) BUN 9 - 24 mg/dL 14 Creatinine 0.73 - 1.22 mg/dL 0.87 Sodium 136 - 144 mmol/L 138 Potassium 3.7 - 5.1 mmol/L 4.5 Chloride 97 - 105 mmol/L 104 CO2 22 - 30 mmol/L 21 (L) Anion Gap 9 - 18 mmol/L 13 eGFR WBC 3.70 - 11.00 k/uL 5.79 RBC 4.20 - 6.00 m/uL 4.76 Hemoglobin 13.0 - 17.0 g/dL 14.2 Hematocrit 39.0 - 51.0 % 42.6 MCV 80.0 - 100.0 fL 89.5 MCH 26.0 - 34.0 pg 29.8 MCHC 30.5 - 36.0 g/dL 33.3 RDW-CV 11.5 - 15.0 % 12.4 Platelet Count 150 - 400 k/uL 202 MPV 9.0 - 12.7 fL 9.8 Absolute nRBC <0.01 k/uL <0.01 Hemoglobin A1C 4.3 - 5.6 % 6.0 (H) Estimated Average Glucose mg/dL 126 Estradiol 17B pg/mL 337 Testosterone ng/dL 98 RUQ US 2022: IMPRESSION: 1. Hepatic steatosis with associated hepatomegaly. 2. Simple left renal cysts. 3. Spleen normal in size. Mammogram 07/2020. IMPRESSION: NEGATIVE There is no mammographic evidence of malignancy. A 1 year screening mammogram is recommended. IMP/PLAN: Encounter Diagnosis ICD-10-CM 1. Type 2 diabetes mellitus with diabetic neuropathy, with long-term current use of insulin (HCC) E11.40 ENDOCRINE MEDICAL WEIGHT MANAGEMENT Z79.4 ALBUMIN/CREAT RATIO RND UR 2. Primary hypertension I10 lisinopril (ZESTRIL) 10 mg tablet ENDOCRINE MEDICAL WEIGHT MANAGEMENT 3. Gender dysphoria F64.9 finasteride (PROSCAR) 5 mg tablet 4. Encounter for long-term (current) use of high-risk medication Z79.899 finasteride (PROSCAR) 5 mg tablet 5. Obesity, Class II, BMI 35-39.9 E66.9 ENDOCRINE MEDICAL WEIGHT MANAGEMENT 6. Hepatic steatosis K76.0 ENDOCRINE MEDICAL WEIGHT MANAGEMENT 7. Encounter for screening mammogram for malignant neoplasm of breast Z12.31 [facility] SCREENING #HTN At goal Continue lisinopril 10 mg daily. #T2DM Continue current medications - metformin 500 mg BID Check urine alb/Cr. #NAFLD, Obesity Class 2 We discussed the multidisciplinary, inter-professional approach to weight management at the [facility]. The patient is amenable to a referral to Endocrine Weight Management. #GHM She declined all vaccines today. Mammogram ordered. FU in 3-6 months with new PCP. Medical Decision Making: Problems: Moderate: 2+ stable chronic illnesses Data: Unique test result(s) reviewed: 3+ Unique test(s) ordered: 3+ Risk: Moderate: Drug management and Moderate risk from testing/treatment Medical Decision Making Level: 4 - Moderate Gunnar Guthrie MD, MPH Director - [facility] [employer] [employer] [facility] [facility] - Transgender Surgery and Medicine Program [facility] He/Him/They/Them documented in this encounter [facility] 09-15-2022 Miscellaneous Notes Items addressed in this encounter: Telephone Encounter Able to close encounter. Orders approved. Bessie Altamirano RN September 15, 2022 3:24 PM 3:24 PM Noted. Patient's request for medication is as follows Requested Prescriptions Signed Prescriptions Disp Refills UNIFINE PENTIPS PLUS 32 gauge x 5/32 90 Each 1 Sig: Inject 1 Each subcutaneously once daily. USE DIRECTED. Authorizing Provider: LATOYA AVILA Order entered - please phone pharmacy and notify patient. Latoya Avila APRN.LEAF BLENDER Per pharmacy medication is ready for shredder picker. Pt aware and please send [facility] Violeta Beltran LPN Patient calling in stating that they just got off phone with [facility] [place] stating they cannot shredder picker Lisinopril for a couple days still and patient states that they have been out. Patient states they also need pen needles for their insulin. Contact Information [phone] Thank you documented in this encounter [facility] 09-15-2022 Miscellaneous Notes Items addressed in this encounter: Refill Encounter Able to close encounter. Rx approved. Bessie Altamirano RN September 15, 2022 12:01 PM 12:01 PM Patient's request for medication is as follows Requested Prescriptions Signed Prescriptions Disp Refills alcohol swabs 200 Each 5 Sig: Use with blood glucose test once daily. Insulin Dep? No Authorizing Provider: LATOYA AVILA Order entered - please phone pharmacy and notify patient. Latoya Avila APRN.CNP Pharmacy electronically requests the following refill(s) Last vv 07/14/22 No future appt Requested Prescriptions Pending Prescriptions Disp Refills alcohol swabs 200 Each 5 Sig: Use with blood glucose test once daily. Insulin Dep? No Violeta Beltran LPN documented in this encounter [facility] 09-10-2022 Note HNO ID: [id number] Author: Latoya Avila APRN.CNP Service: ? Author Type: Nurse Practitioner Type: Progress Notes Filed: 09/10/2022 11:14 AM Note Text: Ordered. Latoya Avila APRN.CNP [facility] 09-10-2022 History of Present illness Narrative Ordered. Latoya Avila APRN.CNP Care Gap Reviewed: Colorectal Cancer Screening Outreach Outcome/Action: Spoke to patient / parent / legal guardian: No action required (information or reminder only) PT requested new order to be placed since this order is expiring on 09/28/22 - Pt threw out last kit. Violeta Beltran LPN documented in this encounter [facility] 09-09-2022 Note Patient Outreach (IN [facility]) ISAI GRAHAM ([id number]) 1970 O* T Date Time Provider Department 09/09/22 VIOLETA BELTRAN [facility] During your visit today, we recorded the following information about you: Violeta Beltran LPN 09/10/2022 11:14 AM Signed Care Gap Reviewed: Colorectal Cancer Screening Outreach Outcome/Action: Spoke to patient / parent / legal guardian: No action required (information or reminder only) PT requested new order to be placed since this order is expiring on 09/28/22 - Pt threw out last kit. MARYAN Garcia Elizabeth, APRN.CNP 09/10/2022 11:14 AM Signed Ordered. Latoya Avila APRN.LEAF BLENDER Allergies As of Date: 09/09/2022 Noted Allergy Reaction ATORVASTATIN 09/05/2014 17 - Myalgia Comments: Severe muscle cramps PENICILLINS 07/20/2012 16 - Unknown Date Reviewed: 04/21/2022 Reviewed by: Sonya Riley MA - Fully Assessed Primary Visit Diagnosis:Colon cancer screening [Z12.11] Order(s):COLLEE [SQCOLGRD] Order #: [id number] Prescriptions as of 09/10/2022 - metFORMIN (GLUCOPHAGE) 500 mg tablet Take 1 tablet by mouth twice daily with meals. - lisinopril (ZESTRIL) 10 mg tablet Take 1 tablet by mouth once daily. - finasteride (PROSCAR) 5 mg tablet Take 1 tablet by mouth once daily. - estradiol (ESTRACE) 2 mg tablet Take 1 tablet by mouth once daily. - metoprolol tartrate, short acting, (LOPRESSOR) 25 mg tablet Take 1 tablet by mouth twice daily. - apixaban (ELIQUIS) 5 mg tab(s) Take 1 tablet by mouth twice daily. - insulin detemir U-100 (LEVEMIR FLEXTOUCH U-100 INSULIN) 100 unit/mL (3 mL) injection pen Inject 22 Units subcutaneously daily at bedtime. - insulin lispro (ADMELOG SOLOSTAR U-100 INSULIN) 100 unit/mL Inject 4 Units subcutaneously three times daily before meals. - Lancets lancets Use with blood glucose test once daily. Insulin Dep? No - alcohol swabs Use with blood glucose test once daily. Insulin Dep? No - blood sugar diagnostic test strip Use with blood glucose test once daily, Insulin Dep? No - UNIFINE PENTIPS PLUS 32 gauge x 5/32 once daily. USE DIRECTED. - loghh-0o-amk-epa-fish oil (OMEGA-3 FISH OIL) 300-1,000 mg cap Take 1 capsule by mouth once daily. - COMPOUNDED PRESCRIPTION Initiate CPAP @ 13 cm of water with humidification mask (per patient preference) optional chin strap (if indicated) and lifetime supplies DX: BE 327.23 Facility-Administered Medications as of 09/10/2022 - perflutren lipid microspheres 1.3 mL in NaCl (PF) 0.9% 10 mL injection (DEFINITY) - sodium chloride 0.9 % (flush) 10 mL (BD POSIFLUSH) Problem List As Of Date 09/09/2022 Noted Resolved Sleep apnea [G47.30] 03/21/2013 Encounter for screening mammogram for malignant*08/18/2016 Hepatic steatosis [K76.0] 05/07/2016 Mixed hyperlipidemia [E78.2] 03/08/2014 Gonadal dysgenesis, 46, 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 Author Type: LICENSED NURSE Type: Progress Notes Filed: 09/10/2022 11:14 AM Note Text: Care Gap Reviewed: Colorectal Cancer Screening Outreach Outcome/Action: Spoke to patient / parent / legal guardian: No action required (information or reminder only) PT requested new order to be placed since this order is expiring on 09/28/22 - Pt threw out last kit. Violeta Beltran LPN [facility] 07-14-2022 Note HNO ID: [id number] Author: Latoya Avila APRN.DEYA Service: ? Author Type: Nurse Practitioner Type: Progress Notes Filed: 07/14/2022 11:08 AM Note Text: VIRTUAL VISIT PROGRESS NOTE This is a virtual visit using PEVESA video visit. It required patient-provider interaction for the medical decision making as documented below. I have communicated my name and active licensure. The patient's identity and physical location were verified at the time of this visit. Either the patient or their legal admitting representative has been informed of the risks and benefits of -- and alternatives to -- treatment through a remote evaluation and consents to proceed with the evaluation remotely. Isai Graham is a 52 year old adult seen for follow up. States losing weight Blood sugar better States taking medication how I see fit Was incarcerated, provider at shelter discontinued metformin because was having a lot of diarrhea BG 80-161 Stopped taking insulin injections regularly, taking prandial insulin 3 times per week Started taking metformin 500mg BID again, around beginning of this month States BG around 80 a couple times this month and felt shaky (2-3pm) had taken lunch time insulin and not eaten lunch, supplemented with glucose (silva's kiss) and symptoms improved No sugars less than 80 Not taking levemir consistently Did not have liver biopsy because was incarcerated Planning to follow up with hepatology to have this completed States feels well States feels hormone therapy is going ok States while incarcerated was getting estradiol 3mg and not usual dose of 2 mg Was incarcerated for 3 weeks Has been taking blood thinner consistently States working physical job Denies palpitations, CP, SOB, lightheaded, syncope Not checking BP and HR at home HISTORY REVIEWED (electronic chart updated): PAST MEDICAL HISTORY Diagnosis Date - Hepatic steatosis - Hormonal imbalance in transgender patient - HTN (hypertension) - Prediabetes PAST SURGICAL HISTORY Procedure Laterality Date - PAST SURGICAL HISTORY OF lacertion of right arm/repair FAMILY HISTORY Problem Relation Age of Onset - Obstructive Sleep Apnea Mother - Diabetes Father - other (fungal infection in the blood) Father - COPD Maternal Grandmother Social History Tobacco Use - Smoking status: Former Packs/day: 0.50 Types: Cigarettes - Smokeless tobacco: Never - Tobacco comments: quit 2011 Substance Use Topics - Alcohol use: No - Drug use: No Current Outpatient Medications Medication Sig - insulin detemir U-100 (LEVEMIR FLEXTOUCH U-100 INSULIN) 100 unit/mL (3 mL) injection pen Inject 22 Units subcutaneously daily at bedtime. - insulin lispro (ADMELOG SOLOSTAR U-100 INSULIN) 100 unit/mL Inject 4 Units subcutaneously three times daily before meals. - Lancets lancets Use with blood glucose test once daily. Insulin Dep? No - alcohol swabs Use with blood glucose test once daily. Insulin Dep? No - metFORMIN (GLUCOPHAGE) 1,000 mg tablet Take 1 tablet by mouth twice daily. - apixaban (ELIQUIS) 5 mg tab(s) Take 1 tablet by mouth twice daily. - metoprolol tartrate, short acting, (LOPRESSOR) 25 mg tablet Take 1 tablet by mouth twice daily. - lisinopril (ZESTRIL) 10 mg tablet Take 1 tablet by mouth once daily. - finasteride (PROSCAR) 5 mg tablet Take 1 tablet by mouth once daily. - blood sugar diagnostic test strip Use with blood glucose test once daily, Insulin Dep? No - estradiol (ESTRACE) 2 mg tablet Take 1 tablet by mouth once daily. - UNIFINE PENTIPS PLUS 32 gauge x 5/32 once daily. USE DIRECTED. - oxyvb-5r-qzl-epa-fish oil (OMEGA-3 FISH OIL) 300-1,000 mg cap Take 1 capsule by mouth once daily. - COMPOUNDED PRESCRIPTION Initiate CPAP @ 13 cm of water with humidification mask (per patient preference) optional chin strap (if indicated) and lifetime supplies DX: BE 327.23 Current Facility-Administered Medications Medication Dose Route Frequency - perflutren lipid microspheres 1.3 mL in NaCl (PF) 0.9% 10 mL injection (DEFINITY) INTRAVENOUS DIRECTED PRN - sodium chloride 0.9 % (flush) 10 mL (BD POSIFLUSH) 10 mL INTRAVENOUS DIRECTED PRN ALLERGIES Allergen Reactions - Atorvastatin Myalgia Severe muscle cramps - Penicillins Unknown REVIEW OF SYSTEMS: As noted in HPI PHYSICAL EXAMINATION: VIDEO EXAM: (if completed, performed via video enabled technology) GENERAL: alert and appropriate, in no distress RESPIRATORY: breathing non-labored CHEST: equal chest rise with normal respiratory effort ASSESSMENT/PLAN: 1. Type 2 diabetes mellitus with diabetic neuropathy, with long-term current use of insulin (HCC) - ICD9: 250.60, 357.2, V58.67, ICD10: E11.40, Z79.4 (primary diagnosis) - Controlled - Continue current medications (patient decreased metformin to 500mg PO BID as had diarrhea with 1000mg dosing; continue metformin 500mg PO BID with meals as tarah (more content not included)... [facility] 07-14-2022 History of Present illness Narrative VIRTUAL VISIT PROGRESS NOTE This is a virtual visit using PEVESA video visit. It required patient-provider interaction for the medical decision making as documented below. I have communicated my name and active licensure. The patient's identity and physical location were verified at the time of this visit. Either the patient or their legal admitting representative has been informed of the risks and benefits of -- and alternatives to -- treatment through a remote evaluation and consents to proceed with the evaluation remotely. Isai Graham is a 52 year old adult seen for follow up. States losing weight Blood sugar better States taking medication how I see fit Was incarcerated, provider at shelter discontinued metformin because was having a lot of diarrhea BG 80-161 Stopped taking insulin injections regularly, taking prandial insulin 3 times per week Started taking metformin 500mg BID again, around beginning of this month States BG around 80 a couple times this month and felt shaky (2-3pm) had taken lunch time insulin and not eaten lunch, supplemented with glucose (silva's kiss) and symptoms improved No sugars less than 80 Not taking levemir consistently Did not have liver biopsy because was incarcerated Planning to follow up with hepatology to have this completed States feels well States feels hormone therapy is going ok States while incarcerated was getting estradiol 3mg and not usual dose of 2 mg Was incarcerated for 3 weeks Has been taking blood thinner consistently States working physical job Denies palpitations, CP, SOB, lightheaded, syncope Not checking BP and HR at home HISTORY REVIEWED (electronic chart updated): PAST MEDICAL HISTORY Diagnosis Date Hepatic steatosis Hormonal imbalance in transgender patient HTN (hypertension) Prediabetes PAST SURGICAL HISTORY Procedure Laterality Date PAST SURGICAL HISTORY OF lacertion of right arm/repair FAMILY HISTORY Problem Relation Age of Onset Obstructive Sleep Apnea Mother Diabetes Father other (fungal infection in the blood) Father COPD Maternal Grandmother Social History Tobacco Use Smoking status: Former Packs/day: 0.50 Types: Cigarettes Smokeless tobacco: Never Tobacco comments: quit 2011 Substance Use Topics Alcohol use: No Drug use: No Current Outpatient Medications Medication Sig insulin detemir U-100 (LEVEMIR FLEXTOUCH U-100 INSULIN) 100 unit/mL (3 mL) injection pen Inject 22 Units subcutaneously daily at bedtime. insulin lispro (ADMELOG SOLOSTAR U-100 INSULIN) 100 unit/mL Inject 4 Units subcutaneously three times daily before meals. Lancets lancets Use with blood glucose test once daily. Insulin Dep? No alcohol swabs Use with blood glucose test once daily. Insulin Dep? No metFORMIN (GLUCOPHAGE) 1,000 mg tablet Take 1 tablet by mouth twice daily. apixaban (ELIQUIS) 5 mg tab(s) Take 1 tablet by mouth twice daily. metoprolol tartrate, short acting, (LOPRESSOR) 25 mg tablet Take 1 tablet by mouth twice daily. lisinopril (ZESTRIL) 10 mg tablet Take 1 tablet by mouth once daily. finasteride (PROSCAR) 5 mg tablet Take 1 tablet by mouth once daily. blood sugar diagnostic test strip Use with blood glucose test once daily, Insulin Dep? No estradiol (ESTRACE) 2 mg tablet Take 1 tablet by mouth once daily. UNIFINE PENTIPS PLUS 32 gauge x 5/32 once daily. USE DIRECTED. pxrry-5q-zut-epa-fish oil (OMEGA-3 FISH OIL) 300-1,000 mg cap Take 1 capsule by mouth once daily. COMPOUNDED PRESCRIPTION Initiate CPAP @ 13 cm of water with humidification mask (per patient preference) optional chin strap (if indicated) and lifetime supplies DX: BE 327.23 Current Facility-Administered Medications Medication Dose Route Frequency perflutren lipid microspheres 1.3 mL in NaCl (PF) 0.9% 10 mL injection (DEFINITY) INTRAVENOUS DIRECTED PRN sodium chloride 0.9 % (flush) 10 mL (BD POSIFLUSH) 10 mL INTRAVENOUS DIRECTED PRN ALLERGIES Allergen Reactions Atorvastatin Myalgia Severe muscle cramps Penicillins Unknown REVIEW OF SYSTEMS: As noted in HPI PHYSICAL EXAMINATION: VIDEO EXAM: (if completed, performed via video enabled technology) GENERAL: alert and appropriate, in no distress RESPIRATORY: breathing non-labored CHEST: equal chest rise with normal respiratory effort ASSESSMENT/PLAN: 1. Type 2 diabetes mellitus with diabetic neuropathy, with long-term current use of insulin ([facility]) - ICD9: 250.60, 357.2, V58.67, ICD10: E11.40, Z79.4 (primary diagnosis) - Controlled - Continue current medications (patient decreased metformin to 500mg PO BID as had diarrhea with 1000mg dosing; continue metformin 500mg PO BID with meals as patient is tolerating this) - Blood glucose monitoring on a three to four times daily schedule - Counseled on healthy diet and regular exercise - Discussed diabetic education issues of hypoglycemic/hyperglycemic symptoms and medication-specific side effects and monitoring. Discussed importance of eating regularly to prevent hypoglycemia. Discussed that if patient is not going to eat a meal that she should not take the prandial insulin dose as this was likely the reason for her symptomatic lower blood glucose levels - Follow up in 3 months, sooner should any other issues arise. - METFORMIN 500 MG TABLET - HGB A1C 2. Gender dysphoria - ICD9: 302.6, ICD10: F64.9 #Gender dysphoria Doing well on gender affirmation hormonal therapy with estradiol and finasteride No obvious negative side effects Physical changes are as expected on medical therapy Continue current medications and doses pending labs which patient states she will have done later this week Future labs ordered today - CBC (to monitor for anemia), CMP, estradiol 17OH, total testosterone FU in 6 months for gender affirmation surveillance care, sooner PRN - ESTRADIOL-17B BLD - TESTOSTERONE TOTAL - COMP METABOLIC PANEL - CBC - FINASTERIDE 5 MG TABLET - ESTRADIOL 2 MG TABLET 3. Encounter for long-term (current) use of high-risk medication - ICD9: V58.69, ICD10: Z79.899 - gender affirmation hormone therapy - continue labs/visits for surveillance every 6 months and PRN - ESTRADIOL-17B BLD - TESTOSTERONE TOTAL - COMP METABOLIC PANEL - CBC - FINASTERIDE 5 MG TABLET - ESTRADIOL 2 MG TABLET 4. Primary hypertension - ICD9: 401.9, ICD10: I10 - unable to assess current control as patient not checking BP at home - Continue current medications - Recommend home blood pressure monitoring, to bring results to next visit - Encouraged sodium restriction, DASH or Mediterranean diet - Recommend regular aerobic exercise - LISINOPRIL 10 MG TABLET 5. Atrial flutter, unspecified type (HCC) - ICD9: 427.32, ICD10: I48.92 - no symptoms at present - continue current medication - METOPROLOL TARTRATE 25 MG TABLET - APIXABAN 5 MG TABLET 6. Hepatic steatosis - ICD9: 571.8, ICD10: K76.0 - with elevated LFTs - discussed importance of following through with recommendations of hepatology and having liver biopsy completed as advised by hepatology - discussed intermediate designer complications/prognosis of hepatic steatosis Medical Decision Making: Problems: Moderate: 1+ chronic illnesses with change and 2+ stable chronic illnesses Data: Unique test(s) ordered: 3+ Risk: Moderate: Moderate risk from testing/treatment and Drug management Medical Decision Making Level: 4 - Moderate Latoya Avila APRN.CNP documented in this encounter [facility] 05-11-2022 Miscellaneous Notes Last appt 04/21/21 Next appt 06/04/22 Patient requests via PEVESA refills as follows: Requested Prescriptions Pending Prescriptions Disp Refills insulin lispro (ADMELOG SOLOSTAR U-100 INSULIN) 100 unit/mL 12 mL 2 Sig: Inject 4 Units subcutaneously three times daily before meals. Please review and advise. Shana Arellano MA documented in this encounter [facility] 05-06-2022 Miscellaneous Notes Refill requested 9 items, but they were sent to 4 different providers, combined them all into one encounter. documented in this encounter [facility] 05-06-2022 Miscellaneous Notes Patient has four different my chart refill requests, I pulled all meds to this one so they are refilled by same provider. Dr. Chilel saw patient last, will route entire list to her for signature. Will cancel all other refill requests to avoid confusion. Last appt 04/21/[address] Chilel Next appt 06/04/2022 with Kymberly. Patient phones requesting refills as follows: Requested Prescriptions Pending Prescriptions Disp Refills Lancets lancets 100 Each 5 Sig: Use with blood glucose test once daily. Insulin Dep? No alcohol swabs 100 Each 5 Sig: Use with blood glucose test once daily. Insulin Dep? No metFORMIN (GLUCOPHAGE) 1,000 mg tablet 180 tablet 1 Sig: Take 1 tablet by mouth twice daily. apixaban (ELIQUIS) 5 mg tab(s) 60 tablet 2 Sig: Take 1 tablet by mouth twice daily. metoprolol tartrate, short acting, (LOPRESSOR) 25 mg tablet 60 tablet 2 Sig: Take 1 tablet by mouth twice daily. lisinopril (ZESTRIL) 10 mg tablet 30 tablet 5 Sig: Take 1 tablet by mouth once daily. finasteride (PROSCAR) 5 mg tablet 30 tablet 5 Sig: Take 1 tablet by mouth once daily. blood sugar diagnostic test strip 100 Strip 5 Sig: Use with blood glucose test once daily, Insulin Dep? No estradiol (ESTRACE) 2 mg tablet 90 tablet 1 Sig: Take 1 tablet by mouth once daily. Refused Prescriptions Disp Refills estradiol (ESTRACE) 2 mg tablet 90 tablet 1 Sig: Take 1 tablet by mouth once daily. Refused By: CASSIDY ZAMORA Reason for Refusal: Records indicate that there is a valid prescription at the pharmacy blood sugar diagnostic test strip 100 Strip 5 Sig: Use with blood glucose test once daily, Insulin Dep? No Refused By: ZAMORA, CASSIDY Reason for Refusal: Records indicate that there is a valid prescription at the pharmacy Please review and advise. Hayley Cardenas RN documented in this encounter [facility] 04-21-2022 Note HNO ID: [id number] Author: Vadim Mack MD Service: ? Author Type: Physician Type: Progress Notes Filed: 04/21/2022 1:04 PM Note Text: Outpatient Internal Medicine - [facility] Patient name: Isai Graham Medical Record: [id number] cc: Patient presents with: Follow Up 52 year old adult with ACTIVE PROBLEM LIST Sleep Apnea Encounter for Screening Mammogram for Malignant Neoplasm of Breast Hepatic Steatosis Mixed Hyperlipidemia Gonadal Dysgenesis, 46, Xy Htn (Hypertension) Type 2 Diabetes Mellitus (Hcc) Obesity, Class II, Bmi 35-39.9 Atrial Flutter (Hcc) here for f/u for chronic disease/disorder mgmt. Presenting for DM followup Doing 4Units Lispro 3x daily Metformin 1000mg BID complaint Evening meals b/c of work schedule Has bg readings today AM readings 200-300s There are times when breakfast is skipped and the bg is still elevated Has not been taking the long acting insulin detemir Current Outpatient Medications Medication Sig UNIFINE PENTIPS PLUS 32 gauge x 5/32 once daily. USE DIRECTED. metFORMIN (GLUCOPHAGE) 1,000 mg tablet Take 1 tablet by mouth twice daily. insulin lispro (ADMELOG SOLOSTAR U-100 INSULIN) 100 unit/mL Inject 4 Units subcutaneously three times daily before meals. apixaban (ELIQUIS) 5 mg tab(s) Take 1 tablet by mouth twice daily. metoprolol tartrate, short acting, (LOPRESSOR) 25 mg tablet Take 1 tablet by mouth twice daily. blood sugar diagnostic test strip Use with blood glucose test once daily, Insulin Dep? No uqqjp-9c-afl-epa-fish oil (OMEGA-3 FISH OIL) 300-1,000 mg cap Take 1 capsule by mouth once daily. estradiol (ESTRACE) 2 mg tablet Take 1 tablet by mouth once daily. lisinopril (ZESTRIL, PRINIVIL) 10 mg tablet Take 1 tablet by mouth once daily. finasteride (PROSCAR) 5 mg tablet Take 1 tablet by mouth once daily. Lancets lancets Use with blood glucose test once daily. Insulin Dep? No alcohol swabs Use with blood glucose test once daily. Insulin Dep? No COMPOUNDED PRESCRIPTION Initiate CPAP @ 13 cm of water with humidification mask (per patient preference) optional chin strap (if indicated) and lifetime supplies DX: BE 327.23 insulin detemir U-100 (LEVEMIR FLEXTOUCH U-100 INSULIN) 100 unit/mL (3 mL) injection pen Inject 22 Units subcutaneously daily at bedtime. Current Facility-Administered Medications Medication Dose Route Frequency perflutren lipid microspheres 1.3 mL in NaCl (PF) 0.9% 10 mL injection (DEFINITY) INTRAVENOUS DIRECTED PRN sodium chloride 0.9 % (flush) 10 mL (BD POSIFLUSH) 10 mL INTRAVENOUS DIRECTED PRN PE: BP 131/82 Pulse (!) 55 Resp 16 Wt 111.9 kg (246 lb 12.8 oz) BMI 38.65 kg/m? Gen: No acute distress, well developed, well nourished Impression: (K76.0) Hepatic steatosis (primary encounter diagnosis) (E11.65) Type 2 diabetes mellitus with hyperglycemia, without long-term current use of insulin (HCC) Plan: Educated pt on taking long acting insulin RTC 4-6weeks for chronic management Encourage pt to get labs that were ordered for fatty liver Medical Decision Making: Problems: Low: Stable chronic illness Risk: Moderate: Drug management Medical Decision Making Level: 3 - Low [facility] 04-21-2022 History of Present illness Narrative Outpatient Internal Medicine - [facility] Patient name: Isai Graham Medical Record: [id number] cc: Patient presents with: Follow Up 52 year old adult with ACTIVE PROBLEM LIST Sleep Apnea Encounter for Screening Mammogram for Malignant Neoplasm of Breast Hepatic Steatosis Mixed Hyperlipidemia Gonadal Dysgenesis, 46, Xy Htn (Hypertension) Type 2 Diabetes Mellitus (Hcc) Obesity, Class II, Bmi 35-39.9 Atrial Flutter (Hcc) here for f/u for chronic disease/disorder mgmt. Presenting for DM followup Doing 4Units Lispro 3x daily Metformin 1000mg BID complaint Evening meals b/c of work schedule Has bg readings today AM readings 200-300s There are times when breakfast is skipped and the bg is still elevated Has not been taking the long acting insulin detemir Current Outpatient Medications Medication Sig UNIFINE PENTIPS PLUS 32 gauge x 5/32 once daily. USE DIRECTED. metFORMIN (GLUCOPHAGE) 1,000 mg tablet Take 1 tablet by mouth twice daily. insulin lispro (ADMELOG SOLOSTAR U-100 INSULIN) 100 unit/mL Inject 4 Units subcutaneously three times daily before meals. apixaban (ELIQUIS) 5 mg tab(s) Take 1 tablet by mouth twice daily. metoprolol tartrate, short acting, (LOPRESSOR) 25 mg tablet Take 1 tablet by mouth twice daily. blood sugar diagnostic test strip Use with blood glucose test once daily, Insulin Dep? No zrizc-8e-wwk-epa-fish oil (OMEGA-3 FISH OIL) 300-1,000 mg cap Take 1 capsule by mouth once daily. estradiol (ESTRACE) 2 mg tablet Take 1 tablet by mouth once daily. lisinopril (ZESTRIL, PRINIVIL) 10 mg tablet Take 1 tablet by mouth once daily. finasteride (PROSCAR) 5 mg tablet Take 1 tablet by mouth once daily. Lancets lancets Use with blood glucose test once daily. Insulin Dep? No alcohol swabs Use with blood glucose test once daily. Insulin Dep? No COMPOUNDED PRESCRIPTION Initiate CPAP @ 13 cm of water with humidification mask (per patient preference) optional chin strap (if indicated) and lifetime supplies DX: BE 327.23 insulin detemir U-100 (LEVEMIR FLEXTOUCH U-100 INSULIN) 100 unit/mL (3 mL) injection pen Inject 22 Units subcutaneously daily at bedtime. Current Facility-Administered Medications Medication Dose Route Frequency perflutren lipid microspheres 1.3 mL in NaCl (PF) 0.9% 10 mL injection (DEFINITY) INTRAVENOUS DIRECTED PRN sodium chloride 0.9 % (flush) 10 mL (BD POSIFLUSH) 10 mL INTRAVENOUS DIRECTED PRN PE: BP 131/82 Pulse (!) 55 Resp 16 Wt 111.9 kg (246 lb 12.8 oz) BMI 38.65 kg/m Gen: No acute distress, well developed, well nourished Impression: (K76.0) Hepatic steatosis (primary encounter diagnosis) (E11.65) Type 2 diabetes mellitus with hyperglycemia, without long-term current use of insulin (HCC) Plan: Educated pt on taking long acting insulin RTC 4-6weeks for chronic management Encourage pt to get labs that were ordered for fatty liver Medical Decision Making: Problems: Low: Stable chronic illness Risk: Moderate: Drug management Medical Decision Making Level: 3 - Low documented in this encounter [facility] 04-06-2022 Note HNO ID: [id number] Author: Alvin King PA-C Service: ? Author Type: Physician Area Coordinator Type: Progress Notes Filed: 04/06/2022 4:15 PM Note Text: VIRTUAL VISIT FOLLOW UP I had a virtual visit with Ms. Graham today for follow up of elevated liver enzymes. UPDATED HISTORY: CC: Patient presents with: Follow Up HPI: Ms. 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 Patient was last seen by myself 03/05/22. At last visit: Unclear if transaminases are elevated from fatty liver vs drug induced liver injury vs other liver process (AIH?). Discussed need for further testing as below. Reviewed pathophysiology of fatty liver, along with risk of progression to cirrhosis and signs of decompensation. Treatment of fatty liver is weight loss, scheduled to see medical weight management. PLAN Fibroscan today for staging Repeat LFTs and fill in gaps in chronic liver dx panel Consider transjugular liver bx if fibroscan is concerning for cirrhosis/if labs are concerning for autoimmune liver dx May repeat liver imaging pending fibroscan result Tight control of metabolic syndrome essential, PCP To assist with management/surveillance Weight loss BMI <30 as a goal, mediterranean diet and increased cardiovascular exercise with goal >45 minutes 5 days weekly No alcohol intake No more than 2,000 mg tylenol daily Stop milk thistle Needs better control of DMT2 Interval hx: Fibroscan 02/2022: kPa 17.3, CAP 235 Scheduled for transjugular liver biopsy 03/30/22 but she left the recovery area unannounced before start of the procedure (left AMA), had been found in a restroom after pulling out her own IV and proceeding to leave AMA. Says she was quite nervous leading up to the biopsy, worried about the invasiveness of the procedure and potential recovery Has a friend who had the transjugular liver bx done and told her she was fine, her friend has offered to come with her to the biopsy RUQ US showed hepatic steatosis and hepatomegaly Has good synthetic liver function and normal PLTs but transaminases continue to trend upward Has positive HANK 1:640 and ASMA positive 1:26 Needs HAV and HBV vaccination Denies current issues with ascites, HE, hematemesis, hematochezia, confusion, dark urine, efraín colored stool, nausea, vomiting, weight loss, early satiety, bloating, dysphagia, odynophagia, change in bm. Remaining systems reviewed and are negative. Computed MELD-Na score unavailable. Necessary lab results were not found in the last year. Computed MELD score unavailable. Necessary lab results were not found in the last year. 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 USE DIRECTED. metFORMIN (GLUCOPHAGE) 1,000 mg tablet Take 1 tablet by mouth twice daily. 180 tablet 1 insulin lispro (ADMELOG SOLOSTAR U-100 INSULIN) 100 unit/mL Inject 4 Units subcutaneously three times daily before meals. 12 mL 2 apixaban (ELIQUIS) 5 mg tab(s) Take 1 tablet by mouth twice daily. 60 tablet 2 metoprolol tartrate, short acting, (LOPRESSOR) 25 mg tablet Take 1 tablet by mouth twice daily. 60 tablet 2 blood sugar diagnostic test strip Use with blood glucose test once daily, Insulin Dep? No 100 Strip 5 fjatw-2f-utx-epa-fish oil (OMEGA-3 FISH OIL) 300-1,000 mg cap Take 1 capsule by mouth once daily. estradiol (ESTRACE) 2 mg tablet Take 1 tablet by mouth once daily. 90 tablet 1 insulin detemir U-100 (LEVEMIR FLEXTOUCH U-100 INSULIN) 100 unit/mL (3 mL) injection pen Inject 22 Units subcutaneously daily at bedtime. 5 Each 0 lisinopril (ZESTRIL, PRINIVIL) 10 mg tablet Take 1 tablet by mouth once daily. 30 tablet 5 finasteride (PROSCAR) 5 mg tablet Take 1 tablet by mouth once daily. 30 tablet 5 Lancets lancets Use with blood glucose test once daily. Insulin Dep? No 100 Each 5 alcohol swabs Use with blood glucose test once daily. Insulin Dep? No 100 Each 5 COMPOUNDED PRESCRIPTION Initiate CPAP @ 13 cm of water with humidification mask (per patient preference) optional chin strap (if indicated) and lifetime supplies DX: (more content not included)... [facility] 04-06-2022 History of Present illness Narrative VIRTUAL VISIT FOLLOW UP I had a virtual visit with Ms. Graham today for follow up of elevated liver enzymes. UPDATED HISTORY: CC: Patient presents with: Follow Up HPI: Ms. 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 Patient was last seen by myself 03/05/22. At last visit: Unclear if transaminases are elevated from fatty liver vs drug induced liver injury vs other liver process (AIH?). Discussed need for further testing as below. Reviewed pathophysiology of fatty liver, along with risk of progression to cirrhosis and signs of decompensation. Treatment of fatty liver is weight loss, scheduled to see medical weight management. PLAN Fibroscan today for staging Repeat LFTs and fill in gaps in chronic liver dx panel Consider transjugular liver bx if fibroscan is concerning for cirrhosis/if labs are concerning for autoimmune liver dx May repeat liver imaging pending fibroscan result Tight control of metabolic syndrome essential, PCP To assist with management/surveillance Weight loss BMI <30 as a goal, mediterranean diet and increased cardiovascular exercise with goal >45 minutes 5 days weekly No alcohol intake No more than 2,000 mg tylenol daily Stop milk thistle Needs better control of DMT2 Interval hx: Fibroscan 02/2022: kPa 17.3, CAP 235 Scheduled for transjugular liver biopsy 03/30/22 but she left the recovery area unannounced before start of the procedure (left AMA), had been found in a restroom after pulling out her own IV and proceeding to leave AMA. Says she was quite nervous leading up to the biopsy, worried about the invasiveness of the procedure and potential recovery Has a friend who had the transjugular liver bx done and told her she was fine, her friend has offered to come with her to the biopsy RUQ US showed hepatic steatosis and hepatomegaly Has good synthetic liver function and normal PLTs but transaminases continue to trend upward Has positive HANK 1:640 and ASMA positive 1:26 Needs HAV and HBV vaccination Denies current issues with ascites, HE, hematemesis, hematochezia, confusion, dark urine, efraín colored stool, nausea, vomiting, weight loss, early satiety, bloating, dysphagia, odynophagia, change in bm. Remaining systems reviewed and are negative. Computed MELD-Na score unavailable. Necessary lab results were not found in the last year. Computed MELD score unavailable. Necessary lab results were not found in the last year. 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 USE DIRECTED. metFORMIN (GLUCOPHAGE) 1,000 mg tablet Take 1 tablet by mouth twice daily. 180 tablet 1 insulin lispro (ADMELOG SOLOSTAR U-100 INSULIN) 100 unit/mL Inject 4 Units subcutaneously three times daily before meals. 12 mL 2 apixaban (ELIQUIS) 5 mg tab(s) Take 1 tablet by mouth twice daily. 60 tablet 2 metoprolol tartrate, short acting, (LOPRESSOR) 25 mg tablet Take 1 tablet by mouth twice daily. 60 tablet 2 blood sugar diagnostic test strip Use with blood glucose test once daily, Insulin Dep? No 100 Strip 5 djlby-4p-gqo-epa-fish oil (OMEGA-3 FISH OIL) 300-1,000 mg cap Take 1 capsule by mouth once daily. estradiol (ESTRACE) 2 mg tablet Take 1 tablet by mouth once daily. 90 tablet 1 insulin detemir U-100 (LEVEMIR FLEXTOUCH U-100 INSULIN) 100 unit/mL (3 mL) injection pen Inject 22 Units subcutaneously daily at bedtime. 5 Each 0 lisinopril (ZESTRIL, PRINIVIL) 10 mg tablet Take 1 tablet by mouth once daily. 30 tablet 5 finasteride (PROSCAR) 5 mg tablet Take 1 tablet by mouth once daily. 30 tablet 5 Lancets lancets Use with blood glucose test once daily. Insulin Dep? No 100 Each 5 alcohol swabs Use with blood glucose test once daily. Insulin Dep? No 100 Each 5 COMPOUNDED PRESCRIPTION Initiate CPAP @ 13 cm of water with humidification mask (per patient preference) optional chin strap (if indicated) and lifetime supplies DX: BE 327.23 1 Device 0 Current Facility-Administered Medications Medication Dose Route Frequency Provider Last Rate Last Admin perflutren lipid microspheres 1.3 mL in NaCl (PF) 0.9% 10 mL injection (DEFINITY) INTRAVENOUS DIRECTED PRN Annette Quintana MD sodium chloride 0.9 % (flush) 10 mL (BD POSIFLUSH) 10 mL INTRAVENOUS DIRECTED PRN Annette Quintana MD ALLERGIES Allergen Reactions Atorvastatin Myalgia Severe muscle cramps Penicillins Unknown REVIEW OF SYSTEMS: PAIN ASSESSMENT: Negative for pain, history of chronic pain, or current treatment for a chronic pain condition. 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 AUTOMATIC: Not reviewed PHYSICAL FINDINGS OF NOTE: General - Normal, cooperative, in no acute distress Able to interact verbally by video conference Psych - ORIENTATION: normal to time place, person and situation Mood/Affect: AFFECT AND MOOD: Normal Head/Neuro - Normal size and shape Facial appearance normal Pulmonary - respiratory effort normal Cardiovascular - patient describes extremities normal and warm Abdominal - Not performed Skin - abnormal lesions not visualized Motor - patient seen sitting with Normal appearing strength and coordination REVIEWED ITEMS RUQ Ultrasound: 05/14/21: IMPRESSION: Findings are suggestive of hepatic steatosis, unchanged compared to prior study. RUQ US 03/11/22: IMPRESSION: 1. Hepatic steatosis with associated hepatomegaly. 2. Simple left renal cysts. 3. Spleen normal in size. IMPRESSION Ms. 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 Discussed my concerns about worsening steatosis with advanced fibrosis/concern for cirrhosis based on fibroscan along with potential for autoimmune hepatitis as noted by positive autoimmune markers on lab work. Reviewed pathophysiology of AIH/hepatic steatosis and need for liver biopsy to confirm diagnosis to better treat her liver disease. Discussed liver biopsy (transjugular vs percutaneous) in detail and pros/cons of each. She is agreeable to proceed. RECOMMENDATION: Re-schedule transjugular liver biopsy with IR, she will call to schedule Repeat MELD labs prior to liver biopsy Further recommendations to come after biopsy results Likely repeat fibroscan annually Weight loss morales, goal BMI <30 Tight control of metabolic syndrome essential Needs HAV/HBV vaccination Mediterranean diet/increased cardiovascular exercise with goal >45 minutes 5 days weekly Avoid liver detox cleanse/supplements Not to exceed 2,000 mg tylenol daily Follow up 1-2 weeks after liver biopsy. I spent a total of 25 minutes on the date of the service which included preparing to see the patient, [id number] patient care, completing clinical documentation, obtaining and/or reviewing separately obtained history, performing a medically appropriate examination, counseling and educating the patient/family/caregiver, ordering medications, tests, or procedures, communicating with other HCPs (not separately reported), and independently interpreting results (not separately reported). Alvin King PA-C April 06, 2022 4:14 PM documented in this encounter [facility] 03-30-2022 Miscellaneous Notes Pre-procedure was discussed with patient and at some point patient left the recovery area unannounced before the start of procedure and will hopefully reschedule in the near future. JACINTA Ashley documented in this encounter [facility] 03-30-2022 Nurse Note ABDOMINAL RADIOLOGY INTERVENTION NOTE PRE PROCEDURE DIAGNOSIS / REASON FOR INTERVENTION: hepatic steatosis PROCEDURE ( INCLUDING NEEDLES USED, NUMBER OF PASSES, OR CATHETER SIZE PLACED): TJL BX SEDATION / ANESTHESIA: N/A STAFF RADIOLOGIST: Dr. Min A/C TECHNICIAN: Marcella Hernandez RA SPECIMENS : N/A POST PROCEDURE DIAGNOSIS / FINDINGS: N/A COMPLICATIONS: Procedure aborted due to patient leaving against medical advice. Patient was not in her pre-op room when primary IR RN went to take her to procedure room. There was evidence that the patient had left. Multiple RN's looked in other rooms and bathrooms for the patient. One RN ultimately found the patient exiting a restroom where the patient pulled her own IV out. And she proceeded to leave. RN attempted to call the patient's cell phone with no answer. Valeria Gomez RN Pre-procedure instructions: Contacted Isai and confirmed appt. for TJL Biopsy scheduled on March 30, at [facility]. I will wait while you get a pen and paper, if instructions are not followed your procedure may need to be cancelled or rescheduled. Diet: Do not eat solid food after 6:00am on the day of the procedure. You may have water until your arrival time. Medications: IF ok with your Prescribing Provider: RADIOLOGY RECOMMENDS THESE MEDICATION RESTRICTIONS : Stop Metformin oral hypoglycemic the day of this procedure Long acting insulin, take dose. (Levemir) Medication pumps: Insulin pumps must be removed before entering the procedure room. Do you wear Neulasta Onpro? No If yes, the devise must be removed before entering the procedure room. Contrast Dye Prep: Do you have a contrast dye allergy? No Labs: Lab work needs to be drawn prior to 03/30 at any [facility] Lab. If the labs are drawn same day as procedure, please report to J1-4 or S-15, 3 hours prior to procedure start time to ensure they are resulted by your scheduled start time. Arrival: Please bring your Photo ID and Insurance Card. A general consent may need to be signed. Arrival at 1:45pm to desk QB[id number] ([facility]) and check in for your procedure. Service Control Operator/Transportation: How will you be arriving for your procedure? Private car. If you will be arriving at [facility] via ambulance or public transportation, please call to discuss. You will need a responsible adult to accompany you to and from the procedure. Your armored car driver is required to stay with you until you are taken into the Procedure room. If you develop any of the following symptoms before your procedure, please call [phone]. Chills, joint pain, rash, sore throat, cough, loss of smell, reddened eyes, vomiting, abdominal pains, diarrhea, loss of taste, severe headache, weakness, bruising or bleeding, fever, muscle pain, shortness of breath Recovery expectations: You can expect to be at the hospital for the majority of the day. Please do not schedule any other appointments the day of your procedure. Special concerns: Do you use CPAP or BPAP? Yes: Will notify RT If you use CPAP or BiPAP, please call to discuss. Written instructions provided to patient via [employer] If you have any questions please call [phone] documented in this encounter [facility] 03-30-2022 Miscellaneous Notes AMBULATORY PATIENT EDUCATION TOPIC: Survival Skills: TJL BX READINESS TO LEARN COGNITIVE ABILITY: Alert and oriented MOTIVATION TO LEARN: Eager FAMILY SUPPORT: None - Unavailable/disinterested INSTRUCTION PROVIDED TO: Patient PATIENT LEARNS BEST BY: Individual Instruction FACTORS AFFECTING LEARNING: None PHYSICAL LIMITATIONS AFFECTING LEARNING: None LEARNING RESPONSE DIAGNOSIS: TJL BX METHOD OF INSTRUCTION: Individual instruction PATIENT / FAMILY RESPONSE: Information received as demonstrated by interest and questions FOLLOW-UP PLAN: Complete - No need for follow-up SUPPLEMENTAL MATERIAL: None REFERRAL (RECOMMENDATION): None Electronically Signed By: Valeria Gomez RN In Department: HOSP MAIN [id number] documented in this encounter [facility] 03-25-2022 Note HNO ID: [id number] Author: Anthony Aranda RT(R) Service: Radiology Author Type: Technologist Type: Progress Notes Filed: 03/25/2022 3:56 PM Note Text: Radiology Service Progress Note PATIENT NAME: Isai Graham DATE OF SERVICE: March 25, 2022 TIME: 3:56 PM PATIENT IDENTITY VERIFICATION COMPLETED USING TWO (2) IDENTIFIERS: Name and Date of confirmed by patient verbally and Name and Date of confirmed by identification band. FALL SCREENING: Has the patient had 2 falls in the last year or 1 fall with injury or currently using an Ambulatory Assistive Device (Walker, Cane, Wheelchair, Crutches, etc.)? No PATIENT GENDER DATA: Female. status: : No status: NO. PATIENT RELEVANT IMPLANT DATA REVIEWED: Not Applicable RADIOLOGY DEPARTMENT: General X-ray: Exam(s) Completed: Chest X-Ray PERIPHERAL IV DATA: Not applicable SIGNED BY: RT Linda(R) March 25, 2022 3:56 PM [facility] 03-25-2022 Note HNO ID: [id number] Author: Mel Bain V, MD Service: ? Author Type: Physician Type: Progress Notes Filed: 03/25/2022 3:42 PM Note Text: Referring Physician: Annette Quintana [id number] [id number] Quintana for an opinion regarding atrial flutter . My final recommendations will be communicated back to the requesting physician by way of shared Medical record or letter to requesting physician via US mail. Primary Care Physician: Latoya Aivla APRN.LEAF BLENDER Isai Graham is a 52 year old adult that presents today for evaluation of atrial flutter She saw PCP routinely yesterday and was found to be in atrial flutter; Diabetes mellitus Hypertension No history of tia or cva Be on CPAP Transgender male to female [ on hormone replacement ] Mixed hyperlipidemia : she did not take crestor when this was prescribed No history of NM or CAD dx; or chf Ex smoker [ none since 2012 : 1 ppd for 25-28 years ] . Weight gain 15 lbs without edema BMI 37 Abnormal LFT Is going to have biopsy next week ; hold doac as instructed ; asa will discontinued ASSESSMENT/PLAN: 1. Atrial flutter, unspecified type (HCC) - ICD9: 427.32, ICD10: I48.92 (primary diagnosis) Will continue doac for now She is stable to have liver biopsy even in new onset a fluter with controlled rate Echo already ordered to be done in April Followup in a few weeks ; decide on timing of CV if still in a flutter by then - XR CHEST 2V FRONTAL/LAT 2. Mixed hyperlipidemia - ICD9: 272.2, ICD10: E78.2 - suboptimal control After biopsy , will challenge with crestor She will ask liver MD about statin [ prob ok ] 3. Primary hypertension - ICD9: 401.9, ICD10: I10 - fair control - Recommended regular aerobic exercise. - Recommend home blood pressure monitoring, to bring results in on next visit - Goal of BP <130/80 4. Type 2 diabetes mellitus with diabetic neuropathy, with long-term current use of insulin (HCC) - ICD9: 250.60, 357.2, V58.67, ICD10: E11.40, Z79.4 uncontrolled She has been referred to weight loss endo management to help 5. Hepatic steatosis - ICD9: 571.8, ICD10: K76.0 Agree with weigh tloss management Mel Bain MD Current Medications: Current Outpatient Medications Medication Sig UNIFINE PENTIPS PLUS 32 gauge x 5/32 once daily. USE DIRECTED. metFORMIN (GLUCOPHAGE) 1,000 mg tablet Take 1 tablet by mouth twice daily. insulin lispro (ADMELOG SOLOSTAR U-100 INSULIN) 100 unit/mL Inject 4 Units subcutaneously three times daily before meals. apixaban (ELIQUIS) 5 mg tab(s) Take 1 tablet by mouth twice daily. metoprolol tartrate, short acting, (LOPRESSOR) 25 mg tablet Take 1 tablet by mouth twice daily. blood sugar diagnostic test strip Use with blood glucose test once daily, Insulin Dep? No xjptn-2o-myh-epa-fish oil (OMEGA-3 FISH OIL) 300-1,000 mg cap Take 1 capsule by mouth once daily. estradiol (ESTRACE) 2 mg tablet Take 1 tablet by mouth once daily. insulin detemir U-100 (LEVEMIR FLEXTOUCH U-100 INSULIN) 100 unit/mL (3 mL) injection pen Inject 22 Units subcutaneously daily at bedtime. lisinopril (ZESTRIL, PRINIVIL) 10 mg tablet Take 1 tablet by mouth once daily. finasteride (PROSCAR) 5 mg tablet Take 1 tablet by mouth once daily. Lancets lancets Use with blood glucose test once daily. Insulin Dep? No alcohol swabs Use with blood glucose test once daily. Insulin Dep? No aspirin, enteric coated (ECOTRIN LOW STRENGTH) 81 mg EC tablet Take 1 tablet by mouth once daily. COMPOUNDED PRESCRIPTION Initiate CPAP @ 13 cm of water with humidification mask (per patient preference) optional chin strap (if indicated) and lifetime supplies DX: BE 327.23 Current Facility-Administered Medications Medication Dose Route Frequency perflutren lipid microspheres 1.3 mL in NaCl (PF) 0.9% 10 mL injection (DEFINITY) INTRAVENOUS DIRECTED PRN sodium chloride 0.9 % (flush) 10 mL (BD POSIFLUSH) 10 mL INTRAVENOUS DIRECTED PRN PHYSICAL EXAMINATION: Vital Signs: BP 118/78 Pulse 61 Wt 111.1 kg (245 lb) BMI 38.37 kg/m? Body mass index is 38.37 kg/m?. GENERAL: Alert, oriented., Well appearing. No jaundice, anemia, clubbing, or cyanosis. HEENT: no lymphadenopathy. NECK: No JVD, masses, or thyromegaly. Good carotid upstrokes. No carotid bruit. No lymphadenopathy. CARDIAC: Regular rhythm CHEST: Chest clear to auscultation. ABDOMEN: Soft, nontender, with no obvious organomegaly or masses. No epigastric bruit. EDEMA: No edema PERIPHERAL PULSES: 2+ SKIN: warm peripheries, no rash. NEURO: no focal neurological deficit ECG today: PAST MEDICAL HISTORY Diagnosis Date Hepatic steatosis Hormonal imbalance in transgender patient HTN (hypertension) Prediabetes PAST SURGICAL HISTORY Procedure Laterality Date PAST SURGICAL HISTORY OF lacertion of right arm/repair Family Cardiac History: CAD / NM: yes: mother Do you ne (more content not included)... [facility] 03-25-2022 History of Present illness Narrative Radiology Service Progress Note PATIENT NAME: Isai Graham DATE OF SERVICE: March 25, 2022 TIME: 3:56 PM PATIENT IDENTITY VERIFICATION COMPLETED USING TWO (2) IDENTIFIERS: Name and Date of confirmed by patient verbally and Name and Date of confirmed by identification band. FALL SCREENING: Has the patient had 2 falls in the last year or 1 fall with injury or currently using an Ambulatory Assistive Device (Walker, Cane, Wheelchair, Crutches, etc.)? No PATIENT GENDER DATA: Female. status: : No status: NO. PATIENT RELEVANT IMPLANT DATA REVIEWED: Not Applicable RADIOLOGY DEPARTMENT: General X-ray: Exam(s) Completed: Chest X-Ray PERIPHERAL IV DATA: Not applicable SIGNED BY: RT Linda(R) March 25, 2022 3:56 PM documented in this encounter [facility] 03-25-2022 History of Present illness Narrative Images from the original note were not included. Referring Physician: Annette Quintana [id number] [phone] Consultation requested by Dr. Quintana for an opinion regarding atrial flutter . My final recommendations will be communicated back to the requesting physician by way of shared Medical record or letter to requesting physician via [place] mail. Primary Care Physician: Latoya Avila APRN.LEAF BLENDER Isai Graham is a 52 year old adult that presents today for evaluation of atrial flutter She saw PCP routinely yesterday and was found to be in atrial flutter; Diabetes mellitus Hypertension No history of tia or cva Be on CPAP Transgender male to female [ on hormone replacement ] Mixed hyperlipidemia : she did not take crestor when this was prescribed No history of NM or CAD dx; or chf Ex smoker [ none since 2012 : 1 ppd for 25-28 years ] . Weight gain 15 lbs without edema BMI 37 Abnormal LFT Is going to have biopsy next week ; hold doac as instructed ; asa will discontinued ASSESSMENT/PLAN: 1. Atrial flutter, unspecified type (HCC) - ICD9: 427.32, ICD10: I48.92 (primary diagnosis) Will continue doac for now She is stable to have liver biopsy even in new onset a fluter with controlled rate Echo already ordered to be done in April Followup in a few weeks ; decide on timing of CV if still in a flutter by then - XR CHEST 2V FRONTAL/LAT 2. Mixed hyperlipidemia - ICD9: 272.2, ICD10: E78.2 - suboptimal control After biopsy , will challenge with maryor She will ask liver MD about statin [ prob ok ] 3. Primary hypertension - ICD9: 401.9, ICD10: I10 - fair control - Recommended regular aerobic exercise. - Recommend home blood pressure monitoring, to bring results in on next visit - Goal of BP <130/80 4. Type 2 diabetes mellitus with diabetic neuropathy, with long-term current use of insulin (HCC) - ICD9: 250.60, 357.2, V58.67, ICD10: E11.40, Z79.4 uncontrolled She has been referred to weight loss endo management to help 5. Hepatic steatosis - ICD9: 571.8, ICD10: K76.0 Agree with weigh tloss management Mel Bain MD Current Medications: Current Outpatient Medications Medication Sig UNIFINE PENTIPS PLUS 32 gauge x 5/32 once daily. USE DIRECTED. metFORMIN (GLUCOPHAGE) 1,000 mg tablet Take 1 tablet by mouth twice daily. insulin lispro (ADMELOG SOLOSTAR U-100 INSULIN) 100 unit/mL Inject 4 Units subcutaneously three times daily before meals. apixaban (ELIQUIS) 5 mg tab(s) Take 1 tablet by mouth twice daily. metoprolol tartrate, short acting, (LOPRESSOR) 25 mg tablet Take 1 tablet by mouth twice daily. blood sugar diagnostic test strip Use with blood glucose test once daily, Insulin Dep? No hadre-8d-eek-epa-fish oil (OMEGA-3 FISH OIL) 300-1,000 mg cap Take 1 capsule by mouth once daily. estradiol (ESTRACE) 2 mg tablet Take 1 tablet by mouth once daily. insulin detemir U-100 (LEVEMIR FLEXTOUCH U-100 INSULIN) 100 unit/mL (3 mL) injection pen Inject 22 Units subcutaneously daily at bedtime. lisinopril (ZESTRIL, PRINIVIL) 10 mg tablet Take 1 tablet by mouth once daily. finasteride (PROSCAR) 5 mg tablet Take 1 tablet by mouth once daily. Lancets lancets Use with blood glucose test once daily. Insulin Dep? No alcohol swabs Use with blood glucose test once daily. Insulin Dep? No aspirin, enteric coated (ECOTRIN LOW STRENGTH) 81 mg EC tablet Take 1 tablet by mouth once daily. COMPOUNDED PRESCRIPTION Initiate CPAP @ 13 cm of water with humidification mask (per patient preference) optional chin strap (if indicated) and lifetime supplies DX: BE 327.23 Current Facility-Administered Medications Medication Dose Route Frequency perflutren lipid microspheres 1.3 mL in NaCl (PF) 0.9% 10 mL injection (DEFINITY) INTRAVENOUS DIRECTED PRN sodium chloride 0.9 % (flush) 10 mL (BD POSIFLUSH) 10 mL INTRAVENOUS DIRECTED PRN PHYSICAL EXAMINATION: Vital Signs: BP 118/78 Pulse 61 Wt 111.1 kg (245 lb) BMI 38.37 kg/m Body mass index is 38.37 kg/m . GENERAL: Alert, oriented., Well appearing. No jaundice, anemia, clubbing, or cyanosis. HEENT: no lymphadenopathy. NECK: No JVD, masses, or thyromegaly. Good carotid upstrokes. No carotid bruit. No lymphadenopathy. CARDIAC: Regular rhythm CHEST: Chest clear to auscultation. ABDOMEN: Soft, nontender, with no obvious organomegaly or masses. No epigastric bruit. EDEMA: No edema PERIPHERAL PULSES: 2+ SKIN: warm peripheries, no rash. NEURO: no focal neurological deficit ECG today: PAST MEDICAL HISTORY Diagnosis Date Hepatic steatosis Hormonal imbalance in transgender patient HTN (hypertension) Prediabetes PAST SURGICAL HISTORY Procedure Laterality Date PAST SURGICAL HISTORY OF lacertion of right arm/repair Family Cardiac History: CAD / NM: yes: mother Do you need any refills today? No Allergies: ALLERGIES Allergen Reactions Atorvastatin Myalgia Severe muscle cramps Penicillins Unknown Social History: TOBACCO: Tobacco Use: 0.5 packs/day Types: Cigarettes ALCOHOL: No alcohol consumption ROS: Card: See present history. Pulm:No cough or sputum production Gastro:no bowel changes. GenUr:no urinary symptoms. Endo:no chronic fatigue, significant weight loss/gain, heat/cold intolerance. Neuro:no focal weakness, focal sensory loss, headache, visual changes, seizure activity, ataxia, speech/language loss. Rheum:no joint swelling, back pain, knee pain, hip pain, or neck pain. Infect:no fevers, chills, rigors or night sweats. Skin:no rash Heme:no bruising LIPIDS: Triglyceride (mg/dL) Date Value 02/23/2022 147 Cholesterol, Total (mg/dL) Date Value 02/23/2022 227 (H) HDL Cholesterol (mg/dL) Date Value 02/23/2022 40 LDL Cholesterol (mg/dL) Date Value 02/23/2022 158 (H) Mel Bain MD documented in this encounter [facility] 03-25-2022 Miscellaneous Notes Patient added to Dr. Bain's schedule. Please add patient to Dr. Bain's schedule 03/25/2022 at 2:20 for abnormal EKG. Patient is aware. documented in this encounter [facility] 03-24-2022 Note HNO ID: [id number] Author: Annette Quintana MD Service: ? Author Type: Physician Type: Progress Notes Filed: 03/24/2022 5:30 PM Note Text: ESTABLISHED PATIENT Isai Graham is a 52 year old adult presenting for elevated glucose. HISTORY OF PRESENT ILLNESS Presents for uncontrolled DM. Today in-home health visit by [facility] and found A1c 9.3%. Pt's daily glucose check also indicated 300s. Pt was advised to see PCP today. Today pt denies any acute health complaints currently. Currently on metformin 500 mg BID and insulin detemir 22 units nightly. Pt was advised to increase metformin to 1000 mg BID and start lispro 4 units w/ meals. Advised to see endocrinology for further DM management. On physical exam, pt showed atrial flutter w/ irregular ventricular rhythm. EKG indicated Atrial flutter w/ variable AV block. After discussing w/ Dr. Bain, Eliquis 5 mg BID and Carvedilol 25 mg BID were initiated. Pt is scheduled w/ Dr. Bain for tomorrow. Pt has recent multiple health issue including sudden elevated liver enzymes. Pt follow hepatology and liver biopsy is scheduled on . HISTORIES FAMILY HISTORY Problem Relation Age of Onset Obstructive Sleep Apnea Mother Diabetes Father other (fungal infection in the blood) Father COPD Maternal Grandmother PAST MEDICAL HISTORY Diagnosis Date Hepatic steatosis Hormonal imbalance in transgender patient HTN (hypertension) Prediabetes PAST SURGICAL HISTORY Procedure Laterality Date PAST SURGICAL HISTORY OF lacertion of right arm/repair Social History Tobacco Use Smoking status: Former Packs/day: 0.50 Types: Cigarettes Smokeless tobacco: Never Tobacco comments: quit 2011 Substance Use Topics Alcohol use: No Drug use: No Allergies: ALLERGIES Allergen Reactions Atorvastatin Myalgia Severe muscle cramps Penicillins Unknown Medications: blood sugar diagnostic test stripUse with blood glucose test once daily, Insulin Dep? NoDisp: 100 StripRfl: 5 syjgj-5s-ohn-epa-fish oil (OMEGA-3 FISH OIL) 300-1,000 mg capTake 1 capsule by mouth once daily.Disp: Rfl: estradiol (ESTRACE) 2 mg tabletTake 1 tablet by mouth once daily.Disp: 90 tabletRfl: 1 insulin detemir U-100 (LEVEMIR FLEXTOUCH U-100 INSULIN) 100 unit/mL (3 mL) injection penInject 22 Units subcutaneously daily at bedtime.Disp: 5 EachRfl: 0 lisinopril (ZESTRIL, PRINIVIL) 10 mg tabletTake 1 tablet by mouth once daily.Disp: 30 tabletRfl: 5 finasteride (PROSCAR) 5 mg tabletTake 1 tablet by mouth once daily.Disp: 30 tabletRfl: 5 Lancets lancetsUse with blood glucose test once daily. Insulin Dep? NoDisp: 100 EachRfl: 5 alcohol swabsUse with blood glucose test once daily. Insulin Dep? NoDisp: 100 EachRfl: 5 aspirin, enteric coated (ECOTRIN LOW STRENGTH) 81 mg EC tabletTake 1 tablet by mouth once daily.Disp: Rfl: COMPOUNDED PRESCRIPTIONInitiate CPAP @ 13 cm of water with humidification mask (per patient preference) optional chin strap (if indicated) and lifetime supplies DX: BE 327.23Disp: 1 DeviceRfl: 0 UNIFINE PENTIPS PLUS 32 gauge x 5/32 once daily. USE DIRECTED.Disp: Rfl: metFORMIN (GLUCOPHAGE) 1,000 mg tabletTake 1 tablet by mouth twice daily.Disp: 180 tabletRfl: 1 insulin lispro (ADMELOG SOLOSTAR U-100 INSULIN) 100 unit/mLInject 4 Units subcutaneously three times daily before meals.Disp: 12 mLRfl: 2 apixaban (ELIQUIS) 5 mg tab(s)Take 1 tablet by mouth twice daily.Disp: 60 tabletRfl: 2 metoprolol tartrate, short acting, (LOPRESSOR) 25 mg tabletTake 1 tablet by mouth twice daily.Disp: 60 tabletRfl: 2 REVIEW OF SYSTEMS GENERAL: No weight loss, malaise or fevers HEENT: No changes in hearing or vision, no nose bleeds or other nasal problems RESPIRATORY: Negative for cough, hemoptysis, wheezing, COPD, dyspnea or shortness of breath CARDIOVASCULAR: Negative for chest pain, leg swelling, hypertension, CHF or palpitations GI: No nausea, vomiting, or diarrhea : Increased urination MUSCULOSKELETAL: Negative for joint pain or swelling, back pain or muscle pain NEURO: No history of headaches, syncope, paralysis, seizures or tremors All systems were reviewed and were negative except what was noted in the HPI PHYSICAL EXAM BP 132/71 (BP Site: Left Arm) Pulse (!) 49 Temp 36.4 ?C (97.6 ?F) (Temporal) Resp 14 Wt 110.2 kg (243 lb) BMI 38.06 kg/m? General Appearance: Well appearing, alert, in no acute distress, well-hydrated, well nourished. and Obese. Eyes: Anicteric sclera. Pupils are equally round and reactive to light. Extraocular movements are intact. . Lungs: Lungs clear to auscultation. No wheezing, rhonchi, rales.. Heart: Irregular heart beats. Abdomen: Normal abdominal exam. Extremities: No deformities, edema, skin discoloration, clubbing or cyanosis. Good capillary refill. . Musculoskeletal: No joint swelling, deformity, or tenderness. Neurologic: Gait normal. Reflexes normal and s (more content not included)... [facility] 03-24-2022 History of Present illness Narrative ESTABLISHED PATIENT Isai Graham is a 52 year old adult presenting for elevated glucose. HISTORY OF PRESENT ILLNESS Presents for uncontrolled DM. Today in-home health visit by [facility] and found A1c 9.3%. Pt's daily glucose check also indicated 300s. Pt was advised to see PCP today. Today pt denies any acute health complaints currently. Currently on metformin 500 mg BID and insulin detemir 22 units nightly. Pt was advised to increase metformin to 1000 mg BID and start lispro 4 units w/ meals. Advised to see endocrinology for further DM management. On physical exam, pt showed atrial flutter w/ irregular ventricular rhythm. EKG indicated Atrial flutter w/ variable AV block. After discussing w/ Dr. Bain, Eliquis 5 mg BID and Carvedilol 25 mg BID were initiated. Pt is scheduled w/ Dr. Bain for tomorrow. Pt has recent multiple health issue including sudden elevated liver enzymes. Pt follow hepatology and liver biopsy is scheduled on . HISTORIES FAMILY HISTORY Problem Relation Age of Onset Obstructive Sleep Apnea Mother Diabetes Father other (fungal infection in the blood) Father COPD Maternal Grandmother PAST MEDICAL HISTORY Diagnosis Date Hepatic steatosis Hormonal imbalance in transgender patient HTN (hypertension) Prediabetes PAST SURGICAL HISTORY Procedure Laterality Date PAST SURGICAL HISTORY OF lacertion of right arm/repair Social History Tobacco Use Smoking status: Former Packs/day: 0.50 Types: Cigarettes Smokeless tobacco: Never Tobacco comments: quit 2011 Substance Use Topics Alcohol use: No Drug use: No Allergies: ALLERGIES Allergen Reactions Atorvastatin Myalgia Severe muscle cramps Penicillins Unknown Medications: blood sugar diagnostic test strip^Use with blood glucose test once daily, Insulin Dep? No^Disp: 100 Strip^Rfl: 5 vduce-9t-kxr-epa-fish oil (OMEGA-3 FISH OIL) 300-1,000 mg cap^Take 1 capsule by mouth once daily.^Disp: ^Rfl: estradiol (ESTRACE) 2 mg tablet^Take 1 tablet by mouth once daily.^Disp: 90 tablet^Rfl: 1 insulin detemir U-100 (LEVEMIR FLEXTOUCH U-100 INSULIN) 100 unit/mL (3 mL) injection pen^Inject 22 Units subcutaneously daily at bedtime.^Disp: 5 Each^Rfl: 0 lisinopril (ZESTRIL, PRINIVIL) 10 mg tablet^Take 1 tablet by mouth once daily.^Disp: 30 tablet^Rfl: 5 finasteride (PROSCAR) 5 mg tablet^Take 1 tablet by mouth once daily.^Disp: 30 tablet^Rfl: 5 Lancets lancets^Use with blood glucose test once daily. Insulin Dep? No^Disp: 100 Each^Rfl: 5 alcohol swabs^Use with blood glucose test once daily. Insulin Dep? No^Disp: 100 Each^Rfl: 5 aspirin, enteric coated (ECOTRIN LOW STRENGTH) 81 mg EC tablet^Take 1 tablet by mouth once daily.^Disp: ^Rfl: COMPOUNDED PRESCRIPTION^Initiate CPAP @ 13 cm of water with humidification mask (per patient preference) optional chin strap (if indicated) and lifetime supplies DX: BE 327.23^Disp: 1 Device^Rfl: 0 UNIFINE PENTIPS PLUS 32 gauge x 5/32 ^once daily. USE DIRECTED.^Disp: ^Rfl: metFORMIN (GLUCOPHAGE) 1,000 mg tablet^Take 1 tablet by mouth twice daily.^Disp: 180 tablet^Rfl: 1 insulin lispro (ADMELOG SOLOSTAR U-100 INSULIN) 100 unit/mL^Inject 4 Units subcutaneously three times daily before meals.^Disp: 12 mL^Rfl: 2 apixaban (ELIQUIS) 5 mg tab(s)^Take 1 tablet by mouth twice daily.^Disp: 60 tablet^Rfl: 2 metoprolol tartrate, short acting, (LOPRESSOR) 25 mg tablet^Take 1 tablet by mouth twice daily.^Disp: 60 tablet^Rfl: 2 REVIEW OF SYSTEMS GENERAL: No weight loss, malaise or fevers HEENT: No changes in hearing or vision, no nose bleeds or other nasal problems RESPIRATORY: Negative for cough, hemoptysis, wheezing, COPD, dyspnea or shortness of breath CARDIOVASCULAR: Negative for chest pain, leg swelling, hypertension, CHF or palpitations GI: No nausea, vomiting, or diarrhea : Increased urination MUSCULOSKELETAL: Negative for joint pain or swelling, back pain or muscle pain NEURO: No history of headaches, syncope, paralysis, seizures or tremors All systems were reviewed and were negative except what was noted in the HPI PHYSICAL EXAM BP 132/71 (BP Site: Left Arm) Pulse (!) 49 Temp 36.4 C (97.6 F) (Temporal) Resp 14 Wt 110.2 kg (243 lb) BMI 38.06 kg/m General Appearance: Well appearing, alert, in no acute distress, well-hydrated, well nourished. and Obese. Eyes: Anicteric sclera. Pupils are equally round and reactive to light. Extraocular movements are intact. . Lungs: Lungs clear to auscultation. No wheezing, rhonchi, rales.. Heart: Irregular heart beats. Abdomen: Normal abdominal exam. Extremities: No deformities, edema, skin discoloration, clubbing or cyanosis. Good capillary refill. . Musculoskeletal: No joint swelling, deformity, or tenderness. Neurologic: Gait normal. Reflexes normal and symmetric. Sensation grossly intact.. ASSESSMENT AND PLANS 1. Type 2 diabetes mellitus with diabetic neuropathy, with long-term current use of insulin ([facility]) Uncontrolled DM A1c 9.3% (previously 7.9%) - Increase metformin to 1000 mg BID - Start lispro 4 units w/ meals - Continue detemir 22 units nightly - f/u endocrinology - metFORMIN (GLUCOPHAGE) 1,000 mg tablet; Take 1 tablet by mouth twice daily. Dispense: 180 tablet; Refill: 1 - insulin lispro (ADMELOG SOLOSTAR U-100 INSULIN) 100 unit/mL; Inject 4 Units subcutaneously three times daily before meals. Dispense: 12 mL; Refill: 2 2. Atrial flutter, unspecified type ([facility]) Incidental founding of atrial flutter w/ variable AV block - Start Eliquis 5 mg BID, metoprolol 25 mg BID - f/u cardiology for further management (03/25 2:20PM) - Echocardiogram - apixaban (ELIQUIS) 5 mg tab(s); Take 1 tablet by mouth twice daily. Dispense: 60 tablet; Refill: 2 - metoprolol tartrate, short acting, (LOPRESSOR) 25 mg tablet; Take 1 tablet by mouth twice daily. Dispense: 60 tablet; Refill: 2 - COMP METABOLIC PANEL; Future - TSH BLD; Future - MAGNESIUM BLD; Future - PHOSPHORUS INORGANIC; Future - ECHO; Future - perflutren lipid microspheres 1.3 mL in NaCl (PF) 0.9% 10 mL injection (DEFINITY) - sodium chloride 0.9 % (flush) 10 mL (BD POSIFLUSH) - CONSULT TO CARDIOLOGY; Future 3. Obesity, Class II, BMI 35-39.9 BMI 38.06 4. Gonadal dysgenesis, 46, XY Currently on Estradiol 2 mg daily and finasteride 5 mg Medical Decision Making: Problems: Moderate: Acute illness with systemic symptoms and 1+ chronic illnesses with change Data: Unique test(s) ordered: 3+ Risk: Minimal: Minimal risk from testing/treatment Medical Decision Making Level: 4 - Moderate ANNETTE QUINTANA MD PhD Staff Physician at the [facility] Department of Internal Medicine and Geriatrics documented in this encounter [facility] 03-24-2022 Miscellaneous Notes Agree that patient should have evaluation LAURENT. Increased levemir at last visit 03/05/22. Latoya Avila APRN.LEAF BLENDER Balwinder CARRILLO from [facility] called with pt. concern while doing yearly wellness visit. Blood sugar is 483 presently, yesterday blood sugar 310 and 425, and Tuesday blood glucose was 237. Pt. with complaints in last couple weeks of increased urination. Scheduled with Dr. Quintana today at 1500 for evaluation. Thank you, Cyndi documented in this encounter [facility] 03-11-2022 Note HNO ID: [id number] Author: Cleopatra Montaño RDMS Service: ? Author Type: Smoke Jumper Type: Progress Notes Filed: 03/11/2022 10:22 AM Note Text: Radiology Service Progress Note PATIENT NAME: Isai Graham DATE OF SERVICE: March 11, 2022 TIME: 10:22 AM PATIENT IDENTITY VERIFICATION COMPLETED USING TWO (2) IDENTIFIERS: Name and Date of confirmed by patient verbally. FALL SCREENING: Has the patient had 2 falls in the last year or 1 fall with injury or currently using an Ambulatory Assistive Device (Walker, Cane, Wheelchair, Crutches, etc.)? No PATIENT GENDER DATA: Female. status: : No status: NO. PATIENT RELEVANT IMPLANT DATA REVIEWED: Not Applicable RADIOLOGY DEPARTMENT: Ultrasound PERIPHERAL IV DATA: Not applicable SIGNED BY: Cleopatra Montaño RDMS March 11, 2022 10:22 AM [facility] 03-11-2022 History of Present illness Narrative Radiology Service Progress Note PATIENT NAME: Isai Graham DATE OF SERVICE: March 11, 2022 TIME: 10:22 AM PATIENT IDENTITY VERIFICATION COMPLETED USING TWO (2) IDENTIFIERS: Name and Date of confirmed by patient verbally. FALL SCREENING: Has the patient had 2 falls in the last year or 1 fall with injury or currently using an Ambulatory Assistive Device (Walker, Cane, Wheelchair, Crutches, etc.)? No PATIENT GENDER DATA: Female. status: : No status: NO. PATIENT RELEVANT IMPLANT DATA REVIEWED: Not Applicable RADIOLOGY DEPARTMENT: Ultrasound PERIPHERAL IV DATA: Not applicable SIGNED BY: Cleopatra Montaño RDMS March 11, 2022 10:22 AM documented in this encounter [facility] 03-11-2022 Miscellaneous Notes Left voicemail for patient to discuss lab results, did not leave detailed voicemail but did leave call back number. If she returns my call, recommend transjugular liver biopsy and repeat labs to screen for hereditary hemochromatosis and autoimmune hepatitis. Biopsy has been ordered and she can call [place] to schedule, recommend follow up with me ~10 days afterward, can be virtual. documented in this encounter [facility] 03-05-2022 Note HNO ID: [id number] Author: Alvin King PA-C Service: ? Author Type: Physician Area Coordinator Type: Progress Notes Filed: 03/05/2022 1:16 PM Note Text: Patient fasting for 3 hours:Yes Any implanted devices:No Possibility of :No Fibroscan was performed on March 05, 2022, by Tiffany Morales and results are interpreted by Alvin King PA-C Diagnosis: Fatty liver Please refer to get images report for individual readings Number of readings: 10 IQR %: 10 E (kpa): 17.3 CAP: 345 Impression The reading was adequate. FS=17.3 kPA. The CAP score is 345 and corresponds to steatosis grade of S3. This reading corresponds: A 26% chance of stage 0-2 fibrosis A 74% chance of stage 3-4 fibrosis (advanced fibrosis) A 46% chance of stage 4 fibrosis (cirrhosis). Alvin King PA-C NAFLD Fibroscan Fibrosis Risk <7 kPA = F0-F2 97%, F3+F4 3%, F4 <1% <10 kPA = F0-F2 91%, F3+F4 9%, F4 1.3% 10-15 kPA = F0-F2 56%, F3+F4 43%, F4 14% >15 kPA = F0-F2 26%, F3+F4 74%, F4 46% Grade CAP value up to 237 dB/M corresponds to S0 (< 10 % Fat) CAP value between (238 - 258 dB/M) corresponds to S1 (>/= 11 % Fat) CAP value between (259 - 289 dB/M) corresponds to S2 (>/= 33 % Fat) CAP value > 290dB/M corresponds to S3 (>/= 67 % Fat) stage 0 ( S0:< 10 % steatosis) stage 1 (>/= S1: 11%-33% steatosis) stage 2 (>/= S2: 34%-66% steatosis) stage 3 (>/= S3: > 66% steatosis) Reference Manuel Y, Doyle Q, Manuel T, Cely J, Manuel H, Salo T. Controlled attenuation parameter for assessment of hepatic steatosis grades: a diagnostic meta-analysis. Int J Clin Exp Med. 2015 Nov 15;8(10):34148-92. PMID: 96680088; PMCID: [id number]. Ever M, Jaime HERBERT, Aleer-Tamir M, Renny F, Ad J, Melita O, Otis F, Richard M, Liz G, Jewell A, Gavin E, Peggy L, Say G, Kary A, Nina U, Sahu S, Everett P, Jagdisho V, de Gina V, Genevieve M, Master LARRY. Refining the Baveno elastography criteria for the definition of compensated advanced chronic liver disease. J Hepatol. 2020;74(5):5522-1059. doi: 10.1016/j.jhep.2020.11.050. Epub 2019Jan 15. PMID: 68975902. [facility] 03-05-2022 Note HNO ID: [id number] Author: Alvin King PA-C Service: ? 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 Patient was last seen by Dr. Thompson 10/2020 At last visit: 50 yo person with fatty liver. Has risk factors for the metabolic syndrome. Discussed the natural course of fatty liver. Recommend concentrating on weight loss for now as the other factors appear to be controlled. Her mother and she live together. Discussed weight watchers because this has been successful for many persons - mother can join in. If WW is not successful or for a different approach can try the endocrine medical weight loss program. Referral made. RTC in 12 months. Interval hx: Weight at last visit 240 pounds, weight today 246 pounds Last RUQ US May 2021 showed fatty liver, no focal mass No fibroscan ever, no hx of liver bx Elevated transaminases since 09/2020 (AST 43, ALT 48) with significant bump 04/2021 (AST 177, ALT 322) Transferrin sat 21 Previous viral hep panel negative Last hgb a1c 7.9, down from previous Normal PLT count On estradiol and finasteride for hormone therapy No major medication changes since last visit, or since 2020, when LFTs were last much lower Has gained weight, working with family doctor on weight loss Denies current issues with ascites, HE, hematemesis, hematochezia, confusion, dark urine, efraín colored stool, nausea, vomiting, weight loss, early satiety, bloating, dysphagia, odynophagia, change in bm. Remaining systems reviewed and are negative. REVIEW OF SYSTEMS GENERAL: No unexplained weight changes or fevers. HEENT: Negative for severe headaches. NECK: Negative for lumps, masses or pain. RESPIRATORY: Negative for coughing, wheezing or significant dyspnea. CARDIOVASCULAR: Negative for chest pain or heart palpitations. GASTROINTESTINAL: Not reviewed. GENITOURINARY: Not reviewed. MUSCULOSKELETAL: Negative for unexplained joint pains, dislocations or fractures. NEUROLOGIC: Negative for unexplained weakness or vertigo. SKIN: Negative for new lesions or rashes. ENDOCRINE: Negative for cold or heat intolerance . Current Outpatient Medications Medication Sig Dispense Refill tlkro-0d-gyr-epa-fish oil (OMEGA-3 FISH OIL) 300-1,000 mg cap Take 1 capsule by mouth once daily. estradiol (ESTRACE) 2 mg tablet Take 1 tablet by mouth once daily. 90 tablet 1 insulin detemir U-100 (LEVEMIR FLEXTOUCH U-100 INSULIN) 100 unit/mL (3 mL) injection pen Inject 22 Units subcutaneously daily at bedtime. 5 Each 0 lisinopril (ZESTRIL, PRINIVIL) 10 mg tablet Take 1 tablet by mouth once daily. 30 tablet 5 finasteride (PROSCAR) 5 mg tablet Take 1 tablet by mouth once daily. 30 tablet 5 metFORMIN (GLUCOPHAGE) 500 mg tablet Take 500 mg by mouth twice daily. blood sugar diagnostic test strip Use with blood glucose test once daily, Insulin Dep? No 100 Strip 5 Lancets lancets Use with blood glucose test once daily. Insulin Dep? No 100 Each 5 alcohol swabs Use with blood glucose test once daily. Insulin Dep? No 100 Each 5 Milk Thistle 175 mg tab Take 1 tablet by mouth once daily. aspirin, enteric coated (ECOTRIN LOW STRENGTH) 81 mg EC tablet Take 1 tablet by mouth once daily. COMPOUNDED PRESCRIPTION Initiate CPAP @ 13 cm of water with humidification mask (per patient preference) optional chin strap (if indicated) and lifetime supplies DX: BE 327.23 1 Device 0 No current facility-administered medications for this visit. 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 General Appearance: Well appearing, alert, in no acute distress, well-hydrated, well nourished. and Obese Eyes: PERRLA, conjunctiva and sclera normal Oropharynx: covered by mask Lungs:breathing comfortably Heart: regular rate Abdomen: not distended Extremities: no cyanos (more content not included)... [facility] 03-05-2022 History of Present illness Narrative Patient fasting for 3 hours:Yes Any implanted devices:No Possibility of :No Fibroscan was performed on March 05, 2022, by Tiffany Morales and results are interpreted by Alvin King PA-C Diagnosis: Fatty liver Please refer to get images report for individual readings Number of readings: 10 IQR %: 10 E (kpa): 17.3 CAP: 345 Impression The reading was adequate. FS=17.3 kPA. The CAP score is 345 and corresponds to steatosis grade of S3. This reading corresponds: A 26% chance of stage 0-2 fibrosis A 74% chance of stage 3-4 fibrosis (advanced fibrosis) A 46% chance of stage 4 fibrosis (cirrhosis). Alvin King PA-C NAFLD Fibroscan Fibrosis Risk <7 kPA = F0-F2 97%, F3+F4 3%, F4 <1% <10 kPA = F0-F2 91%, F3+F4 9%, F4 1.3% 10-15 kPA = F0-F2 56%, F3+F4 43%, F4 14% >15 kPA = F0-F2 26%, F3+F4 74%, F4 46% Grade CAP value up to 237 dB/M corresponds to S0 (< 10 % Fat) CAP value between (238 - 258 dB/M) corresponds to S1 (>/= 11 % Fat) CAP value between (259 - 289 dB/M) corresponds to S2 (>/= 33 % Fat) CAP value > 290dB/M corresponds to S3 (>/= 67 % Fat) stage 0 ( S0:< 10 % steatosis) stage 1 (>/= S1: 11%-33% steatosis) stage 2 (>/= S2: 34%-66% steatosis) stage 3 (>/= S3: > 66% steatosis) Reference Manuel Y, Doyle Q, Manuel T, Cely J, Manuel H, Salo T. Controlled attenuation parameter for assessment of hepatic steatosis grades: a diagnostic meta-analysis. Int J Clin Exp Med. 2015 Nov 15;8(10):28973-69. PMID: 72509920; PMCID: [id number]. Ever Hughes, Jaime HERBERT, Marcelo M, Renny F, Ad J, Melita O, Otis F, Richard M, Liz G, Jewell A, Gavin E, Peggy L, Say G, Kary A, Nina U, Adelina S, Everett P, Susan V, Vargas V, Genevieve Hughes, Master LARRY. Refining the Baveno elastography criteria for the definition of compensated advanced chronic liver disease. J Hepatol. 2020;74(5):4336-3343. doi: 10.1016/j.jhep.2020.11.050. Epub 2019Jan 15. PMID: 24398821. documented in this encounter [facility] 03-05-2022 Instructions Alvin King PA-C - 03/05/2022 11:52 AM EST Add on fibroscan today to stage fatty liver May consider another liver ultrasound, depending on fibroscan results Continue to work on weight loss Mediterranean diet Increased aerobic exercise with goal >45 minutes 5 days weekly Call with any questions at [phone] documented in this encounter [facility] 03-05-2022 History of Present illness Narrative NAME: Isai Graham CLINIC NO: [id number] REFERRING PHYSICIAN: Milad Thompson PRESENTING COMPLAINT: Patient presents with: Established Patient: Elevated LFT Follow Up HPI: Isai Graham is a 51 year old adult with PMHx of hepatic steatosis, HTN, Pre-DM, dyslipidemia, 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 Patient was last seen by Dr. Thompson 10/2020 At last visit: 50 yo person with fatty liver. Has risk factors for the metabolic syndrome. Discussed the natural course of fatty liver. Recommend concentrating on weight loss for now as the other factors appear to be controlled. Her mother and she live together. Discussed weight watchers because this has been successful for many persons - mother can join in. If WW is not successful or for a different approach can try the endocrine medical weight loss program. Referral made. RTC in 12 months. Interval hx: Weight at last visit 240 pounds, weight today 246 pounds Last RUQ US May 2021 showed fatty liver, no focal mass No fibroscan ever, no hx of liver bx Elevated transaminases since 09/2020 (AST 43, ALT 48) with significant bump 04/2021 (AST 177, ALT 322) Transferrin sat 21 Previous viral hep panel negative Last hgb a1c 7.9, down from previous Normal PLT count On estradiol and finasteride for hormone therapy No major medication changes since last visit, or since 2020, when LFTs were last much lower Has gained weight, working with family doctor on weight loss Denies current issues with ascites, HE, hematemesis, hematochezia, confusion, dark urine, efraín colored stool, nausea, vomiting, weight loss, early satiety, bloating, dysphagia, odynophagia, change in bm. Remaining systems reviewed and are negative. REVIEW OF SYSTEMS GENERAL: No unexplained weight changes or fevers. HEENT: Negative for severe headaches. NECK: Negative for lumps, masses or pain. RESPIRATORY: Negative for coughing, wheezing or significant dyspnea. CARDIOVASCULAR: Negative for chest pain or heart palpitations. GASTROINTESTINAL: Not reviewed. GENITOURINARY: Not reviewed. MUSCULOSKELETAL: Negative for unexplained joint pains, dislocations or fractures. NEUROLOGIC: Negative for unexplained weakness or vertigo. SKIN: Negative for new lesions or rashes. ENDOCRINE: Negative for cold or heat intolerance . Current Outpatient Medications Medication Sig Dispense Refill nqcvt-2i-edn-epa-fish oil (OMEGA-3 FISH OIL) 300-1,000 mg cap Take 1 capsule by mouth once daily. estradiol (ESTRACE) 2 mg tablet Take 1 tablet by mouth once daily. 90 tablet 1 insulin detemir U-100 (LEVEMIR FLEXTOUCH U-100 INSULIN) 100 unit/mL (3 mL) injection pen Inject 22 Units subcutaneously daily at bedtime. 5 Each 0 lisinopril (ZESTRIL, PRINIVIL) 10 mg tablet Take 1 tablet by mouth once daily. 30 tablet 5 finasteride (PROSCAR) 5 mg tablet Take 1 tablet by mouth once daily. 30 tablet 5 metFORMIN (GLUCOPHAGE) 500 mg tablet Take 500 mg by mouth twice daily. blood sugar diagnostic test strip Use with blood glucose test once daily, Insulin Dep? No 100 Strip 5 Lancets lancets Use with blood glucose test once daily. Insulin Dep? No 100 Each 5 alcohol swabs Use with blood glucose test once daily. Insulin Dep? No 100 Each 5 Milk Thistle 175 mg tab Take 1 tablet by mouth once daily. aspirin, enteric coated (ECOTRIN LOW STRENGTH) 81 mg EC tablet Take 1 tablet by mouth once daily. COMPOUNDED PRESCRIPTION Initiate CPAP @ 13 cm of water with humidification mask (per patient preference) optional chin strap (if indicated) and lifetime supplies DX: BE 327.23 1 Device 0 No current facility-administered medications for this visit. ALLERGIES Allergen Reactions Atorvastatin Myalgia Severe muscle cramps Penicillins Unknown Social History Tobacco Use Smoking status: Former Packs/day: 0.50 Types: Cigarettes Smokeless tobacco: Never Tobacco comments: quit 2011 Substance Use Topics Alcohol use: No Drug use: No PAST MEDICAL HISTORY Diagnosis Date Hepatic steatosis Hormonal imbalance in transgender patient HTN (hypertension) Prediabetes @SHX@ FAMILY HISTORY Problem Relation Age of Onset Obstructive Sleep Apnea Mother Diabetes Father other (fungal infection in the blood) Father COPD Maternal Grandmother PHYSICAL EXAM BP 133/82 Pulse 64 Temp (Src) 96.4 (Temporal) Ht 5' 7 (1.70m) Wt 246 lb 3.2 oz (111.7kg) SpO2 94% BMI 38.55 kg/(m^2). General Appearance: Well appearing, alert, in no acute distress, well-hydrated, well nourished. and Obese Eyes: PERRLA, conjunctiva and sclera normal Oropharynx: covered by mask Lungs:breathing comfortably Heart: regular rate Abdomen: not distended Extremities: no cyanosis or edema Skin: no jaundice, no spider angiomas, no palmar erythema Neuro:alert, in no acute distress Recent Labs: Hemoglobin (g/dL) Date Value 02/23/2022 14.5 07/20/2012 15.6 Hematocrit (%) Date Value 02/23/2022 43.7 07/20/2012 45.8 WBC (k/uL) Date Value 02/23/2022 4.40 07/20/2012 5.28 Glucose (mg/dL) Date Value 02/23/2022 251 09/23/2020 90 Potassium (mmol/L) Date Value 02/23/2022 4.9 09/23/2020 4.1 Sodium (mmol/L) Date Value 02/23/2022 135 09/23/2020 139 Chloride (mmol/L) Date Value 02/23/2022 102 09/23/2020 101 CO2 (mmol/L) Date Value 02/23/2022 22 09/23/2020 23 Creatinine (mg/dL) Date Value 02/23/2022 0.76 09/23/2020 0.85 BUN (mg/dL) Date Value 02/23/2022 13 09/23/2020 12 Anion Gap (mmol/L) Date Value 02/23/2022 11 09/23/2020 15 Calcium (mg/dL) Date Value 09/23/2020 9.2 Calcium, Total (mg/dL) Date Value 02/23/2022 9.9 Albumin (g/dL) Date Value 02/23/2022 4.1 Bilirubin, Total (mg/dL) Date Value 02/23/2022 0.2 Bilirubin, Conjug (mg/dL) Date Value 12/29/2012 0.1 Alkaline Phosphatase (U/L) Date Value 02/23/2022 81 AST (U/L) Date Value 02/23/2022 132 (H) ALT (U/L) Date Value 02/23/2022 312 (H) Protein, Total (g/dL) Date Value 02/23/2022 7.5 Computed MELD-Na score unavailable. Necessary lab results were not found in the last year. Computed MELD score unavailable. Necessary lab results were not found in the last year. Imaging: [facility] Ultrasound: 05/14/21: IMPRESSION: Findings are suggestive of hepatic steatosis, unchanged compared to prior study. 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 Unclear if transaminases are elevated from fatty liver vs drug induced liver injury vs other liver process (AIH?). Discussed need for further testing as below. Reviewed pathophysiology of fatty liver, along with risk of progression to cirrhosis and signs of decompensation. Treatment of fatty liver is weight loss, scheduled to see medical weight management. PLAN Fibroscan today for staging Repeat LFTs and fill in gaps in chronic liver dx panel Consider transjugular liver bx if fibroscan is concerning for cirrhosis/if labs are concerning for autoimmune liver dx May repeat liver imaging pending fibroscan result Tight control of metabolic syndrome essential, PCP To assist with management/surveillance Weight loss BMI <30 as a goal, mediterranean diet and increased cardiovascular exercise with goal >45 minutes 5 days weekly No alcohol intake No more than 2,000 mg tylenol daily Stop milk thistle Needs better control of DMT2 ASSESSMENT/PLAN: 1. Elevated liver enzymes - ICD9: 790.5, ICD10: R74.8 (primary diagnosis) - DDI VIBRATION CONTROLLED TRANSIENT ELASTOGRAPHY (VCTE) - VIBRATION CONTROLLED TRANSIENT ELASTOGRAPHY (POC) - ALPHA 1 ANTITRYPSIN PHENOTYPE - FERRITIN BLD - CERULOPLASMIN BLD - HEPATIC FUNCTION PNL - PROTHROMBIN TIME/PT - ALPHA FETOPROTEIN BL - HANK BY IFA WITH REFLEX - SMOOTH MUSCLE AB SCR - MITOCHONDRIAL M2 IGG SERUM - HEPATITIS A ANTIBODY, IGG - JORDAN-REED VCA IGM - CMV IGM AB 2. Hepatic steatosis - ICD9: 571.8, ICD10: K76.0 - DDI VIBRATION CONTROLLED TRANSIENT ELASTOGRAPHY (VCTE) - VIBRATION CONTROLLED TRANSIENT ELASTOGRAPHY (POC) - ALPHA 1 ANTITRYPSIN PHENOTYPE - FERRITIN BLD - CERULOPLASMIN BLD - HEPATIC FUNCTION PNL - PROTHROMBIN TIME/PT - ALPHA FETOPROTEIN BL - HANK BY IFA WITH REFLEX - SMOOTH MUSCLE AB SCR - MITOCHONDRIAL M2 IGG SERUM - HEPATITIS A ANTIBODY, IGG - JORDAN-REED VCA IGM - CMV IGM AB Follow up in 6 months, sooner if needed, pending today's workup. Please contact sooner if you have questions or problems develop. I spent a total of 40 minutes on the date of the service which included preparing to see the patient, [id number] patient care, completing clinical documentation, obtaining and/or reviewing separately obtained history, performing a medically appropriate examination, counseling and educating the patient/family/caregiver, ordering medications, tests, or procedures, communicating with other HCPs (not separately reported), and independently interpreting results (not separately reported). Alvin King PA-C March 05, 2022 12:34 PM documented in this encounter [facility] 03-05-2022 Note HNO ID: [id number] Author: Latoya Avila APRN.LEAF BLENDER Service: ? Author Type: Nurse Practitioner Type: Progress Notes Filed: 03/05/2022 10:23 AM Note Text: This note was created using Its[employer]atonic[employer]. Subjective Isai Graham is a 51 year old adult presenting for [facility] surveillance. Patient has appointment with GI today to discuss worsening liver function Denies ETOH Taking supplements: [place]-3 fish oil and Milk thistle Denies acetaminophen use Feels things are going well with hormones Was seeing endo for DM but stopped because only wanted to see one provider Does not check BG at home Symptomatic of highs: lightheaded, dizzy States has never had low BG, so not sure of symptoms Stopped taking Trulicity x1 dose, but had headache so stopped Taking metformin BID Taking levemir 20 units once daily Has not had diabetic eye exam this year Stopped taking rosuvastatin due to nausea States only took one pill Had severe muscle cramps with atorvastatin States not following specific diet States I don't really eat that much States working 2 hours States [address] a lot for work Walking dog/shoveling now, no CP or SOB HTN: Ms. Graham indicates that she is feeling well and denies any symptoms referable to elevated blood pressure. Specifically denies headache, chest pain, palpitations, dyspnea, and peripheral edema. Patient denies any side effects of her medication(s) and is compliant with their regimen. She does not check BP's generally. She watches her diet for sodium some of the time. 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 WBC 3.70 - 11.00 k/uL 4.40 RBC 4.20 - 6.00 m/uL 5.02 Hemoglobin 13.0 - 17.0 g/dL 14.5 Hematocrit 39.0 - 51.0 % 43.7 MCV 80.0 - 100.0 fL 87.1 MCH 26.0 - 34.0 pg 28.9 MCHC 30.5 - 36.0 g/dL 33.2 RDW-CV 11.5 - 15.0 % 12.5 Platelet Count 150 - 400 k/uL 178 MPV 9.0 - 12.7 fL 9.8 Neut% % 48.8 Abs Neut (ANC) 1.45 - 7.50 k/uL 2.15 Lymph% % 38.0 Abs Lymph 1.00 - 4.00 k/uL 1.67 [place]% % 7.5 Abs [place] <0.87 k/uL 0.33 Eosin% % 4.3 Abs Eosin <0.46 k/uL 0.19 Baso% % 0.9 Abs Baso <0.11 k/uL 0.04 Immature Gran % % 0.5 IMMATURE GRANS (ABS) <0.10 k/uL <0.03 NRBC /100 WBC 0.0 Absolute nRBC <0.01 k/uL <0.01 DTYPE Auto Protein, Total 6.3 - 8.0 g/dL 7.5 Albumin 3.9 - 4.9 g/dL 4.1 Calcium 8.5 - 10.2 mg/dL 9.9 Bilirubin, Total 0.2 - 1.3 mg/dL 0.2 Alkaline Phosphatase 38 - 113 U/L 81 AST 14 - 40 U/L 132 (H) ALT 10 - 54 U/L 312 (H) Glucose 74 - 99 mg/dL 251 (H) BUN 9 - 24 mg/dL 13 Creatinine 0.73 - 1.22 mg/dL 0.76 Sodium 136 - 144 mmol/L 135 (L) Potassium 3.7 - 5.1 mmol/L 4.9 Chloride 97 - 105 mmol/L 102 CO2 22 - 30 mmol/L 22 Anion Gap 9 - 18 mmol/L 11 eGFR >=60 mL/min/1.73mA? 107 Cholesterol, Total <200 mg/dL 227 (H) Triglyceride <150 mg/dL 147 HDL Cholesterol >39 mg/dL 40 Non HDL Cholesterol <130 mg/dL 187 (H) Fasting Time hrs 13 VLDL Cholesterol <30 mg/dL 29 TC:HDL Ratio <5.10 5.68 (H) LDL Cholesterol <100 mg/dL 158 (H) LDL:HDL Ratio <2.54 3.95 (H) Hemoglobin A1C 4.3 - 5.6 % 7.9 (H) Estimated Average Glucose mg/dL 180 Estradiol 17B pg/mL 125 Testosterone ng/dL 47 The 10-year ASCVD risk score (Rui HERBERT, et al., 2019) is: 10.9% Values used to calculate the score: Age: 51 years Sex: Male Is Non- : No Diabetic: Yes Tobacco smoker: No Systolic Blood Pressure: 108 mmHg Is BP treated: Yes HDL Cholesterol: 40 mg/dL Total Cholesterol: 227 mg/dL Current Outpatient Medications on File Prior to Visit Medication Sig vmbru-8j-ozm-epa-fish oil (OMEGA-3 FISH OIL) 300-1,000 mg cap Take 1 capsule by mouth once daily. lisinopril (ZESTRIL, PRINIVIL) 10 mg tablet Take 1 tablet by mouth once daily. finasteride (PROSCAR) 5 mg tablet Take 1 tablet by mouth once daily. metFORMIN (GLUCOPHAGE) 500 mg tablet Take 500 mg by mouth twice daily. blood sugar diagnostic test strip Use with blood glucose test once daily, Insulin Dep? No Lancets lancets Use with blood glucose test once daily. Insulin Dep? No alcohol swabs Use with blood glucose test once daily. Insulin Dep? No Milk Thistle 175 mg tab Take 1 tablet by mouth once daily. aspirin, enteric coated (ECOTRIN LOW STRENGTH) 81 mg EC tablet Take 1 tablet by mouth once daily. COMPOUNDED PRESCRIPTION Initiate CPAP @ 13 cm of water with humidification mask (per patient preference) optional chin strap (if indicated) and lifetime supplies DX: BE 327.23 No current facility-administered medications on file prior to visit. Objective BP 108/71 (BP Site: Left Arm) Pulse 81 Temp (!) 35.9 ?C (96.7 ?F) (Temporal Artery) Resp 16 Wt 111.2 kg (245 lb 3 oz) BMI 38.35 kg/m? Physical Exam Constitutional: Appearance: Normal appearance. Cardiovascular: Rate and Rhythm: Normal rate and regular rhythm. Pulses: (more content not included)... [facility] 03-05-2022 Instructions Latoya Avila APRN.LEAF BLENDER - 03/05/2022 9:57 AM EST Recommend for you to check your blood sugar twice daily. Once first thing in the morning before eating and a second time either 2 hours after a meal or at bedtime. Write the readings down and bring them to your next visit. INCREASE your dose of Levemir insulin to 22 units once daily CONTINUE current dose of metformin You will be contacted by Dr. Truong's office for appointment for medical weight management Please schedule visit with preventive rehab director occupational therapist for management of your high cholesterol Recommend to follow healthy, balanced diet Recommend at least 30 minutes of moderate intensity exercise most days of the week Please schedule your diabetic eye exam documented in this encounter [facility] 03-05-2022 History of Present illness Narrative This note was created using ItsPlatonicriter. Subjective Isai Graham is a 51 year old adult presenting for [facility] surveillance. Patient has appointment with GI today to discuss worsening liver function Denies ETOH Taking supplements: Corona-3 fish oil and Milk thistle Denies acetaminophen use Feels things are going well with hormones Was seeing endo for DM but stopped because only wanted to see one provider Does not check BG at home Symptomatic of highs: lightheaded, dizzy States has never had low BG, so not sure of symptoms Stopped taking Trulicity x1 dose, but had headache so stopped Taking metformin BID Taking levemir 20 units once daily Has not had diabetic eye exam this year Stopped taking rosuvastatin due to nausea States only took one pill Had severe muscle cramps with atorvastatin States not following specific diet States I don't really eat that much States working 2 [address] States [address] a lot for work Walking dog/shoveling now, no CP or SOB HTN: Ms. Graham indicates that she is feeling well and denies any symptoms referable to elevated blood pressure. Specifically denies headache, chest pain, palpitations, dyspnea, and peripheral edema. Patient denies any side effects of her medication(s) and is compliant with their regimen. She does not check BP's generally. She watches her diet for sodium some of the time. 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 WBC 3.70 - 11.00 k/uL 4.40 RBC 4.20 - 6.00 m/uL 5.02 Hemoglobin 13.0 - 17.0 g/dL 14.5 Hematocrit 39.0 - 51.0 % 43.7 MCV 80.0 - 100.0 fL 87.1 MCH 26.0 - 34.0 pg 28.9 MCHC 30.5 - 36.0 g/dL 33.2 RDW-CV 11.5 - 15.0 % 12.5 Platelet Count 150 - 400 k/uL 178 MPV 9.0 - 12.7 fL 9.8 Neut% % 48.8 Abs Neut (ANC) 1.45 - 7.50 k/uL 2.15 Lymph% % 38.0 Abs Lymph 1.00 - 4.00 k/uL 1.67 [place]% % 7.5 Abs [place] <0.87 k/uL 0.33 Eosin% % 4.3 Abs Eosin <0.46 k/uL 0.19 Baso% % 0.9 Abs Baso <0.11 k/uL 0.04 Immature Gran % % 0.5 IMMATURE GRANS (ABS) <0.10 k/uL <0.03 NRBC /100 WBC 0.0 Absolute nRBC <0.01 k/uL <0.01 DTYPE Auto Protein, Total 6.3 - 8.0 g/dL 7.5 Albumin 3.9 - 4.9 g/dL 4.1 Calcium 8.5 - 10.2 mg/dL 9.9 Bilirubin, Total 0.2 - 1.3 mg/dL 0.2 Alkaline Phosphatase 38 - 113 U/L 81 AST 14 - 40 U/L 132 (H) ALT 10 - 54 U/L 312 (H) Glucose 74 - 99 mg/dL 251 (H) BUN 9 - 24 mg/dL 13 Creatinine 0.73 - 1.22 mg/dL 0.76 Sodium 136 - 144 mmol/L 135 (L) Potassium 3.7 - 5.1 mmol/L 4.9 Chloride 97 - 105 mmol/L 102 CO2 22 - 30 mmol/L 22 Anion Gap 9 - 18 mmol/L 11 eGFR >=60 mL/min/1.73m 107 Cholesterol, Total <200 mg/dL 227 (H) Triglyceride <150 mg/dL 147 HDL Cholesterol >39 mg/dL 40 Non HDL Cholesterol <130 mg/dL 187 (H) Fasting Time hrs 13 VLDL Cholesterol <30 mg/dL 29 TC:HDL Ratio <5.10 5.68 (H) LDL Cholesterol <100 mg/dL 158 (H) LDL:HDL Ratio <2.54 3.95 (H) Hemoglobin A1C 4.3 - 5.6 % 7.9 (H) Estimated Average Glucose mg/dL 180 Estradiol 17B pg/mL 125 Testosterone ng/dL 47 The 10-year ASCVD risk score (Rui HERBERT, et al., 2019) is: 10.9% Values used to calculate the score: Age: 51 years Sex: Male Is Non- : No Diabetic: Yes Tobacco smoker: No Systolic Blood Pressure: 108 mmHg Is BP treated: Yes HDL Cholesterol: 40 mg/dL Total Cholesterol: 227 mg/dL Current Outpatient Medications on File Prior to Visit Medication Sig macjb-[id number]-epa-fish oil (OMEGA-3 FISH OIL) 300-1,000 mg cap Take 1 capsule by mouth once daily. lisinopril (ZESTRIL, PRINIVIL) 10 mg tablet Take 1 tablet by mouth once daily. finasteride (PROSCAR) 5 mg tablet Take 1 tablet by mouth once daily. metFORMIN (GLUCOPHAGE) 500 mg tablet Take 500 mg by mouth twice daily. blood sugar diagnostic test strip Use with blood glucose test once daily, Insulin Dep? No Lancets lancets Use with blood glucose test once daily. Insulin Dep? No alcohol swabs Use with blood glucose test once daily. Insulin Dep? No Milk Thistle 175 mg tab Take 1 tablet by mouth once daily. aspirin, enteric coated (ECOTRIN LOW STRENGTH) 81 mg EC tablet Take 1 tablet by mouth once daily. COMPOUNDED PRESCRIPTION Initiate CPAP @ 13 cm of water with humidification mask (per patient preference) optional chin strap (if indicated) and lifetime supplies DX: BE 327.23 No current facility-administered medications on file prior to visit. Objective BP 108/71 (BP Site: Left Arm) Pulse 81 Temp (!) 35.9 C (96.7 F) (Temporal Artery) Resp 16 Wt 111.2 kg (245 lb 3 oz) BMI 38.35 kg/m Physical Exam Constitutional: Appearance: Normal appearance. Cardiovascular: Rate and Rhythm: Normal rate and regular rhythm. Pulses: Normal pulses. Heart sounds: Normal heart sounds. Pulmonary: Effort: Pulmonary effort is normal. Breath sounds: Normal breath sounds. Musculoskeletal: Right lower leg: No edema. Left lower leg: No edema. Neurological: Mental Status: She is alert. Psychiatric: Mood and Affect: Mood normal. Behavior: Behavior normal. ASSESSMENT/PLAN: 1. Gender dysphoria - ICD9: 302.6, ICD10: F64.9 (primary diagnosis) #Gender dysphoria Doing well on gender affirmation hormonal therapy with estradiol and finasteride No obvious negative side effects Physical changes are as expected on medical therapy Continue current medications and doses (estradiol 2mg PO daily and finasteride and 5mg PO daily) as estradiol level in target goal range and testosterone suppressed FU in 6 months for gender affirmation surveillance care, sooner PRN - ESTRADIOL 2 MG TABLET 2. Type 2 diabetes mellitus with hyperglycemia, without long-term current use of insulin (HCC) - ICD9: 250.00, 790.29, ICD10: E11.65 improved control, but not in target goal range - Increase Levemir from 20 units once daily to 22 units once daily - Blood glucose monitoring on a twice a day schedule (FBG, 2 hour post prandial or HS) - Encouraged regular aerobic exercise and weight loss - Follow up in 3 months, sooner should any other issues arise. - Discussed diabetic education issues of intermediate designer diabetic complications, hypoglycemic symptoms, hyperglycemic symptoms, diet, importance of exercise, and importance of annual examinations with Opthalmology with patient. - BP goal of <130/80 - LDL goal of <100 - LEVEMIR FLEXTOUCH U-100 INSULIN 100 UNIT/ML (3 ML) SUBCUTANEOUS PEN - HGB A1C - COMP METABOLIC PANEL 3. Mixed hyperlipidemia - ICD9: 272.2, ICD10: E78.2 - poor control, intolerance to rosuvastatin (nausea) and atorvastatin (muscle cramping) - refer to preventive cardiology for further management of hyperlipidemia - Encouraged following a low fat, low cholesterol diet. - Discussed the benefits of regular aerobic exercise and weight loss. - CONSULT TO PREVENTIVE CARD 4. Class 2 severe obesity with serious comorbidity and body mass index (BMI) of 38.0 to 38.9 in adult, unspecified obesity type (HCC) - ICD9: 278.01, V85.38, ICD10: E66.01, Z68.38 Weight increasing - Refer to ENDOCRINE MEDICAL WEIGHT MANAGEMENT 5. Elevated LFTs - ICD9: 790.6, ICD10: R79.89 - worsening, advised to keep scheduled appointment with GI today - COMP METABOLIC PANEL 6. Hepatic steatosis - ICD9: 571.8, ICD10: K76.0 - advised to keep scheduled appointment with GI today - COMP METABOLIC PANEL 7. Primary hypertension - ICD9: 401.9, ICD10: I10 - good control - Continue current medication(s) - Encouraged dietary sodium restriction/DASH diet - Recommended regular aerobic exercise. - Recommend home blood pressure monitoring, to bring results in on next visit - Goal of BP <130/80 - CONSULT TO PREVENTIVE CARD 8. Statin intolerance - ICD9: 995.27, ICD10: Z78.9 - refer to CONSULT TO PREVENTIVE CARD for hyperlipidemia management 9. Encounter for long-term (current) use of high-risk medication - ICD9: V58.69, ICD10: Z79.899 - gender affirmation hormone therapy - continue labs/visits for surveillance every 6 months and PRN - ESTRADIOL 2 MG TABLET 10. Depression screening - ICD9: V79.0, ICD10: Z13.31 Depression Screening 08/18/2018 04/12/2020 05/08/2021 03/05/2022 PHQ-2 Score 0 0 0 0 Depression screening tool completed and reviewed. Based on score and interview, patient is not at risk for depression. Screening tool discussed with patient, and I recommended no further intervention at this time. - DEPRESSION SCREENING/ASSESSMENT Follow up in 3 months with virtual visit for DM management (patient advised to have labs completed prior to that visit) Medical Decision Making: Problems: Low: Stable chronic illness Moderate: 1+ chronic illnesses with change Data: Unique test result(s) reviewed: 3+ Unique test(s) ordered: 2 Risk: Moderate: Moderate risk from testing/treatment and Drug management Medical Decision Making Level: 4 - Moderate Latoya Avila APRN.DEYA documented in this encounter [facility] 02-12-2022 Miscellaneous Notes Pt notified. Violeta Beltran LPN Please remind patient to have fasting labs done before appointment with PCP on 03/05 Last appointment within department: 09/01/2021 Next appointment with department: 03/05/2022 Pharmacy escripts requesting the following refill: Requested Prescriptions Pending Prescriptions Disp Refills estradiol (ESTRACE) 2 mg tablet [Pharmacy Med Name: estradiol 2 mg tablet] 45 tablet 2 Sig: Take 1 AND 0.5 tablets by mouth every evening. Please review and advise. MI Esquivel documented in this encounter [facility] 02-11-2022 Miscellaneous Notes Last appointment within department: 09/01/2021 Next appointment with department: 03/05/2022 Patient requests via MyChart refill as follows: Requested Prescriptions Pending Prescriptions Disp Refills lisinopril (ZESTRIL, PRINIVIL) 10 mg tablet 30 tablet 5 Sig: Take 1 tablet by mouth once daily. finasteride (PROSCAR) 5 mg tablet 30 tablet 5 Sig: Take 1 tablet by mouth once daily. Refused Prescriptions Disp Refills estradiol (ESTRACE) 2 mg tablet 90 tablet 1 Sig: Take 1 tablet by mouth daily at bedtime. Please review and advise. MI Esquivel documented in this encounter [facility] 11-30-2021 Miscellaneous Notes Received communication that cologuard has not been completed. MCM sent to pt Violeta Beltran LPN documented in this encounter [facility] 11-12-2021 Miscellaneous Notes Summary: Fractyl Research Study Study #: [id number] Protocol Title: Fractyl-Revita T2Di Pivotal Study Principal Inv.: Andrei Shirley Study Coord.: Shweta Zavala Sponsor: [employer] Left a message inquiring if the patient was interested in participating in the Fractyl research study. I provided the patient with my contact information. documented in this encounter [facility] 11-10-2021 Miscellaneous Notes Summary: Fractyl Research Study #: [id number] Protocol Title: Fractyl-Revita T2Di Pivotal Study Principal Inv.: Andrei Shirley Study Coord.: Shweta Zavala Sponsor: [employer] Called patient to inquire about the Fractyl study. I believe the patient hung up the phone before I was able to speak. documented in this encounter [facility] 09-28-2021 Miscellaneous Notes Cologuard reordered. Latoya Avila APRN.DEYA Spoke with pt and states she has been so busy but she needs to get this done. Please place new order for cologuard as we have received notification that the order has . Violeta Beltran LPN documented in this encounter [facility] 09-07-2021 Miscellaneous Notes Addended by: LATOYA AVILA on: 09/07/2021 01:04 PM Modules accepted: Orders Signed Prescriptions Disp Refills rosuvastatin (CRESTOR) 5 mg tablet 30 tablet 0 Sig: Take 1 tablet by mouth daily at bedtime. Latoya Avila APRN.DEYA documented in this encounter [facility] 08-11-2021 Miscellaneous Notes PT only takes 2mg daily Pharmacy electronically requests the following refill(s) Pending Prescriptions Disp Refills ESTRADIOL 2 MG TABLET 90 tablet 1 Sig: Take 1 tablet by mouth daily at bedtime. JOHN: No Violeta Beltran LPN Pls clarify dose with pt. Unclear to me if she takes 1 tab vs 1 tab AM and 0.5 tab PM. Thank you! Pharmacy electronically requests the following refill(s) Pending Prescriptions Disp Refills ESTRADIOL 2 MG TABLET 45 tablet 2 Sig: Take 1 tablet by mouth AND half a tablet every evening. JOHN: Yes Kwan Chaidez MA documented in this encounter [facility] 06-23-2021 Miscellaneous Notes I called and spoke with patient. She is OK with our office sending requested information. Faxed to below number. Jp calling from [facility] in [place] regarding referral that was sent over to them. Jp is requesting office notes and most recent lab notes faxed over to them. Jp states they also need patient's demographic information sent over to them. Phone number, address, emergency contact information. Callback: [phone] Thank you documented in this encounter [facility] 06-18-2021 Miscellaneous Notes Referral faxed over to Dr. Morales's office at [phone]. Consult to requested outside nodulizer placed and given to clinical team to fax to consulting provider's office. Duncan Arizmendi PA-C, AAHIVS (he/him) documented in this encounter [facility] 05-15-2021 Miscellaneous Notes Patient informed. Please call patient. Please let patient know that her ultrasound showed fatty liver disease and was stable from her previous ultrasound. Recommend for patient to see a shrimp header for further evaluation of her worsening liver function tests. Patient can see any shrimp header that she would like, but can offer recommendation of Dr. Milad Thompson. Latoya Avila APRN.CNP documented in this encounter [facility] 05-11-2021 Miscellaneous Notes Notified pt. Violeta Beltran LPN Noted. Signed. Latoya Avila APRN.CNP Magy with lab states the order just needs to be signed. If its not letting you she says I can call her on her cell. Magy Violeta Beltran LPN Trying to place the order but unable to file it. Please call lab to see what the next step is. Latoya Avila APRN.DEYA Patient calling in stating that she needs a new order to please be placed for Urinalysis with Microscopic. She went to have it down at [facility] location and was unable to provide the urine sample, she was told to come back. When she went back the order was gone and they said they need a new order placed. Please call patient back at [phone] once order is placed. Thank you documented in this encounter [facility] 05-08-2021 History of Present illness Narrative VIRTUAL VISIT PROGRESS NOTE This is a virtual visit using PEVESA video visit. It required patient-provider interaction for the medical decision making as documented below. Isai Graham is a 51 year old adult seen for [facility] surveillance. 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 No N/V Drinks a lot of water Denies excessive thirst Getting up at night to urinate, multiple times starting about a month ago No yellowing of skin or eyes No ABD pain Taking milk thistle supplement Urine is dark yellow Urine smells a little stronger than before Denies ETOH intake Would take acetaminophen no more than 2 pills per day, stopped taking them States maybe her attitude has changed sometimes, has been told she has a mean streak sometimes Patient feels comfortable with her mood No CP, SOB, leg swelling Leg cramping sometimes Thinks it is because she is driving a lot Checking BP at home States it has been normal States 140/80s-90s Using salt to flavor food Component Latest Ref Rng & Units 04/30/2021 WBC 3.70 - 11.00 k/uL 4.62 RBC 4.20 - 6.00 m/uL 5.49 Hemoglobin 13.0 - 17.0 g/dL 15.5 Hematocrit 39.0 - 51.0 % 47.8 MCV 80.0 - 100.0 fL 87.1 MCH 26.0 - 34.0 pg 28.2 MCHC 30.5 - 36.0 g/dL 32.4 RDW-CV 11.5 - 15.0 % 11.9 Platelet Count 150 - 400 k/uL 220 MPV 9.0 - 12.7 fL 9.5 Neut% % 61.1 Abs Neut (ANC) 1.45 - 7.50 k/uL 2.82 Lymph% % 25.3 Abs Lymph 1.00 - 4.00 k/uL 1.17 [place]% % 10.0 Abs [place] <0.87 k/uL 0.46 Eosin% % 2.8 Abs Eosin <0.46 k/uL 0.13 Baso% % 0.6 Abs Baso <0.11 k/uL 0.03 Immature Gran % % 0.2 IMMATURE GRANS (ABS) <0.10 k/uL <0.03 NRBC /100 WBC 0.0 Absolute nRBC <0.01 k/uL <0.01 DTYPE Auto Protein, Total 6.3 - 8.0 g/dL 6.9 Albumin 3.9 - 4.9 g/dL 3.6 (L) Calcium 8.5 - 10.2 mg/dL 8.8 Bilirubin, Total 0.2 - 1.3 mg/dL 0.2 Alkaline Phosphatase 38 - 113 U/L 83 AST 14 - 40 U/L 177 (H) ALT 10 - 54 U/L 322 (H) Glucose 74 - 99 mg/dL 347 (H) BUN 9 - 24 mg/dL 9 Creatinine 0.73 - 1.22 mg/dL 0.69 (L) Sodium 136 - 144 mmol/L 133 (L) Potassium 3.7 - 5.1 mmol/L 4.6 Chloride 97 - 105 mmol/L 99 CO2 22 - 30 mmol/L 22 Anion Gap 9 - 18 mmol/L 12 eGFR Estradiol 17B pg/mL 169 Testosterone 87 - 780 ng/dL 13 (L) Vitamin B12 232-1,245 pg/mL 790 TSH 0.270 - 4.200 mIU/L 2.470 HISTORY REVIEWED (electronic chart updated): PAST MEDICAL HISTORY Diagnosis Date Hepatic steatosis Hormonal imbalance in transgender patient HTN (hypertension) Prediabetes PAST SURGICAL HISTORY Procedure Laterality Date PAST SURGICAL HISTORY OF lacertion of right arm/repair FAMILY HISTORY Problem Relation Age of Onset Obstructive Sleep Apnea Mother Diabetes Father other (fungal infection in the blood) Father COPD Maternal Grandmother Social History Tobacco Use Smoking status: Former Smoker Packs/day: 0.50 Types: Cigarettes Smokeless tobacco: Never Used Tobacco comment: quit 2011 Substance Use Topics Alcohol use: No Drug use: No Current Outpatient Medications Medication Sig lisinopril (ZESTRIL, PRINIVIL) 10 mg tablet Take 1 tablet by mouth once daily. estradiol (ESTRACE) 2 mg tablet Take 1 tablet by mouth every evening AND 0.5 tablets every evening. (Patient taking differently: Take 1 tablet by mouth every evening) Milk Thistle 175 mg tab Take 1 tablet by mouth once daily. finasteride (PROSCAR) 5 mg tablet Take 1 tablet by mouth once daily. aspirin, enteric coated (ECOTRIN LOW STRENGTH) 81 mg EC tablet Take 1 tablet by mouth once daily. COMPOUNDED PRESCRIPTION Initiate CPAP @ 13 cm of water with humidification mask (per patient preference) optional chin strap (if indicated) and lifetime supplies DX: BE 327.23 No current facility-administered medications for this visit. ALLERGIES Allergen Reactions Atorvastatin Myalgia Severe muscle cramps Penicillins Unknown REVIEW OF SYSTEMS: As noted in HPI PHYSICAL EXAMINATION: VIDEO EXAM: (if completed, performed via video enabled technology) GENERAL: alert and appropriate, in no distress, well-hydrated, well nourished and happy, smiling, interactive RESPIRATORY: breathing non-labored CHEST: equal chest rise with normal respiratory effort ASSESSMENT/PLAN: 1. Gender dysphoria - ICD9: 302.6, ICD10: F64.9 (primary diagnosis) #Gender dysphoria Doing well on gender affirmation hormonal therapy with estradiol and finasteride No obvious negative side effects Physical changes are as expected on medical therapy Continue current medications and doses as testosterone well suppressed and estradiol in target goal range FU in 3 months for gender affirmation surveillance care, sooner PRN 2. Encounter for long-term (current) use of high-risk medication - ICD9: V58.69, ICD10: Z79.899 - gender affirmation hormone therapy - continue labs/visits for surveillance every 3-6 months and PRN 3. Elevated LFTs - ICD9: 790.6, ICD10: R79.89 - hx of hepatic steatosis, LFTs worsening, repeat labs - COMP METABOLIC PANEL - HEP REMOTE PANEL BL - IRON + TIBC - US ABD RT UPPER QUADRANT 4. Prediabetes - ICD9: 790.29, ICD10: R73.03 - elevated BG+300 concerning for progression to DM2, this was discussed with patient - recommend low carb diet - recommend to have blood work repeated to check HgbA1C and determine next steps for treatment - HGB A1C 5. Leg cramping - ICD9: 729.82, ICD10: R25.2 - etiology unclear, check labs to assess for electrolyte imbalance - COMP METABOLIC PANEL - MAGNESIUM BLD 6. Nocturia - ICD9: 788.43, ICD10: R35.1 - likely related to hyperglycemia, but will check UA to further assess - URINALYSIS, WITH MICROSCOPIC Follow up in office in 3 months and sooner PRN Medical Decision Making: Problems: Low: Stable chronic illness Moderate: 1+ chronic illnesses with change and New problem with uncertain prognosis Data: Unique test result(s) reviewed: 3+ Unique test(s) ordered: 3+ Risk: Moderate: Moderate risk from testing/treatment and Drug management Medical Decision Making Level: 4 - Moderate Latoya Avila APRN.LEAF BLENDER documented in this encounter [facility] 05-07-2021 Miscellaneous Notes Pt. notified and agreeable to below recommendations. Pt. states does not drink alcohol. Plans to get labs rechecked hopefully Tuesday because of work schedule. Kathy Bryson RN Patient returned call for results and she wants to know if she should fast before repeating the labs. Please call patient back at [phone]. Bev Handy Pss left for patient to return call to office and [facility] sent as well. Violeta Beltran LPN Please call patient. Liver function tests and blood sugar were very high on recent blood test. Recommend to repeat blood work at patient's earliest convenience. Recommend avoidance of alcohol. Latoya Avila APRN.DEYA documented in this encounter [facility] documented as of this encounter (statuses as of 05/15/2021) [facility] History of Past illness Narrative* Problem Noted Date Resolved Date Prediabetes 07/17/2019 05/13/2021 documented as of this encounter (statuses as of 05/15/2021) [facility] History of Past illness Narrative* Problem Noted Date Resolved Date Prediabetes 07/17/2019 05/13/2021 documented as of this encounter (statuses as of 06/18/2021) [facility] History of Past illness Narrative* Problem Noted Date Resolved Date Prediabetes 07/17/2019 05/13/2021 documented as of this encounter (statuses as of 06/23/2021) [facility] History of Past illness Narrative* Problem Noted Date Resolved Date Prediabetes 07/17/2019 05/13/2021 documented as of this encounter (statuses as of 08/11/2021) [facility] History of Past illness Narrative* Problem Noted Date Resolved Date Prediabetes 07/17/2019 05/13/2021 [id number] transgender person on hormone the rapy 08/23/2018 09/01/2021 documented as of this encounter (statuses as of 09/07/2021) [facility] History of Past illness Narrative* Problem Noted Date Resolved Date Prediabetes 07/17/2019 05/13/2021 [id number] transgender person on hormone the rapy 08/23/2018 09/01/2021 documented as of this encounter (statuses as of 09/28/2021) [facility] History of Past illness Narrative* Problem Noted Date Resolved Date Prediabetes 07/17/2019 05/13/2021 [id number] transgender person on hormone the rapy 08/23/2018 09/01/2021 documented as of this encounter (statuses as of 10/13/2021) [facility] History of Past illness Narrative* Problem Noted Date Resolved Date Prediabetes 07/17/2019 05/13/2021 [id number] transgender person on hormone the rapy 08/23/2018 09/01/2021 documented as of this encounter (statuses as of 10/13/2021) [facility] of Past illness Narrative* Problem Noted Date Resolved Date Prediabetes 07/17/2019 05/13/2021 [id number] transgender person on hormone the rapy 08/23/2018 09/01/2021 documented as of this encounter (statuses as of 11/10/2021) [facility] of Past illness Narrative* Problem Noted Date Resolved Date Prediabetes 07/17/2019 05/13/2021 Cljj-kt-kvjqkx transgender person on hormone the rapy 08/23/2018 09/01/2021 documented as of this encounter (statuses as of 11/12/2021) [address]09-2020 History of Past illness Narrative* Problem Noted Date Resolved Date Prediabetes 07/17/2019 05/13/2021 Qhaw-vt-jeisgr transgender person on hormone the rapy 08/23/2018 09/01/2021 documented as of this encounter (statuses as of 11/30/2021) [facility]-09-2020 History of Past illness Narrative* Problem Noted Date Resolved Date Prediabetes 07/17/2019 05/13/2021 Eczp-xx-zmqmqg transgender person on hormone the rapy 08/23/2018 09/01/2021 documented as of this encounter (statuses as of 02/12/2022) [address]09-2020 History of Past illness Narrative* Problem Noted Date Resolved Date Prediabetes 07/17/2019 05/13/2021 Rtkj-tm-pjmink transgender person on hormone the rapy 08/23/2018 09/01/2021 documented as of this encounter (statuses as of 02/12/2022) [facility] History of Past illness Narrative* Problem Noted Date Resolved Date Prediabetes 07/17/2019 05/13/2021 Lgdb-eg-olxvel transgender person on hormone the rapy 08/23/2018 09/01/2021 documented as of this encounter (statuses as of 03/05/2022) [address]09-2020 History of Past illness Narrative* Problem Noted Date Resolved Date Prediabetes 07/17/2019 05/13/2021 Uxvr-nj-xejzzr transgender person on hormone the rapy 08/23/2018 09/01/2021 documented as of this encounter (statuses as of 03/05/2022) [facility] History of Past illness Narrative* Problem Noted Date Resolved Date Prediabetes 07/17/2019 05/13/2021 Iqcu-on-zawtjn transgender person on hormone the rapy 08/23/2018 09/01/2021 documented as of this encounter (statuses as of 03/05/2022) [facility] History of Past illness Narrative* Problem Noted Date Resolved Date Prediabetes 07/17/2019 05/13/2021 Dssb-ij-dorppg transgender person on hormone the rapy 08/23/2018 09/01/2021 documented as of this encounter (statuses as of 03/05/2022) [address]-2020 History of Past illness Narrative* Problem Noted Date Resolved Date Prediabetes 07/17/2019 05/13/2021 Enbo-hw-ntpvay transgender person on hormone the rapy 08/23/2018 09/01/2021 documented as of this encounter (statuses as of 03/05/2022) [facility] History of Past illness Narrative* Problem Noted Date Resolved Date Prediabetes 07/17/2019 05/13/2021 Khug-cx-keiqsk transgender person on hormone the rapy 08/23/2018 09/01/2021 documented as of this encounter (statuses as of 03/05/2022) [facility] History of Past illness Narrative* Problem Noted Date Resolved Date Prediabetes 07/17/2019 05/13/2021 Uuky-fv-upwnyk transgender person on hormone the rapy 08/23/2018 09/01/2021 documented as of this encounter (statuses as of 03/10/2022) [facility] History of Past illness Narrative* Problem Noted Date Resolved Date Prediabetes 07/17/2019 05/13/2021 Xxxa-ev-lbaksp transgender person on hormone the rapy 08/23/2018 09/01/2021 documented as of this encounter (statuses as of 03/11/2022) [facility] History of Past illness Narrative* Problem Noted Date Resolved Date Prediabetes 07/17/2019 05/13/2021 Xzzt-te-vifahn transgender person on hormone the rapy 08/23/2018 09/01/2021 documented as of this encounter (statuses as of 03/24/2022) [facility] History of Past illness Narrative* Problem Noted Date Resolved Date Prediabetes 07/17/2019 05/13/2021 Yqwe-pl-khkmqu transgender person on hormone the rapy 08/23/2018 09/01/2021 documented as of this encounter (statuses as of 03/25/2022) [facility] History of Past illness Narrative* Problem Noted Date Resolved Date Prediabetes 07/17/2019 05/13/2021 Yqex-gx-zhqevi transgender person on hormone the rapy 08/23/2018 09/01/2021 documented as of this encounter (statuses as of 03/25/2022) [facility] History of Past illness Narrative* Problem Noted Date Resolved Date Prediabetes 07/17/2019 05/13/2021 Yqbl-kj-ffiwpy transgender person on hormone the rapy 08/23/2018 09/01/2021 documented as of this encounter (statuses as of 03/25/2022) [facility] History of Past illness Narrative* Problem Noted Date Resolved Date Prediabetes 07/17/2019 05/13/2021 Msoy-xk-prxnhl transgender person on hormone the rapy 08/23/2018 09/01/2021 documented as of this encounter (statuses as of 03/31/2022) [facility] History of Past illness Narrative* Problem Noted Date Resolved Date Prediabetes 07/17/2019 05/13/2021 Blaw-zo-smivwy transgender person on hormone the rapy 08/23/2018 09/01/2021 documented as of this encounter (statuses as of 03/31/2022) [facility] History of Past illness Narrative* Problem Noted Date Resolved Date Prediabetes 07/17/2019 05/13/2021 Saia-su-ytxopg transgender person on hormone the rapy 08/23/2018 09/01/2021 documented as of this encounter (statuses as of 04/07/2022) [facility] History of Past illness Narrative* Problem Noted Date Resolved Date Prediabetes 07/17/2019 05/13/2021 Lbam-an-uijngh transgender person on hormone the rapy 08/23/2018 09/01/2021 documented as of this encounter (statuses as of 04/21/2022) [facility] History of Past illness Narrative* Problem Noted Date Resolved Date Prediabetes 07/17/2019 05/13/2021 Bzbp-fq-wmeyjg transgender person on hormone the rapy 08/23/2018 09/01/2021 documented as of this encounter (statuses as of 05/07/2022) [facility] History of Past illness Narrative* Problem Noted Date Resolved Date Prediabetes 07/17/2019 05/13/2021 Cdav-mq-mwaadp transgender person on hormone the rapy 08/23/2018 09/01/2021 documented as of this encounter (statuses as of 05/07/2022) [facility] History of Past illness Narrative* Problem Noted Date Resolved Date Prediabetes 07/17/2019 05/13/2021 Quka-fc-bjjkne transgender person on hormone the rapy 08/23/2018 09/01/2021 documented as of this encounter (statuses as of 05/11/2022) [facility] History of Past illness Narrative* Problem Noted Date Resolved Date Prediabetes 07/17/2019 05/13/2021 Dtyk-lj-rywoui transgender person on hormone the rapy 08/23/2018 09/01/2021 documented as of this encounter (statuses as of 05/12/2022) [facility] History of Past illness Narrative* Problem Noted Date Resolved Date Prediabetes 07/17/2019 05/13/2021 Cgzv-gf-lqqiee transgender person on hormone the rapy 08/23/2018 09/01/2021 documented as of this encounter (statuses as of 05/13/2022) [facility] History of Past illness Narrative* Problem Noted Date Resolved Date Prediabetes 07/17/2019 05/13/2021 Vbld-hw-afxysw transgender person on hormone the rapy 08/23/2018 09/01/2021 documented as of this encounter (statuses as of 07/14/2022) [facility] History of Past illness Narrative* Problem Noted Date Resolved Date Prediabetes 07/17/2019 05/13/2021 Ypbj-bz-pvyflf transgender person on hormone the rapy 08/23/2018 09/01/2021 documented as of this encounter (statuses as of 07/22/2022) [facility] History of Past illness Narrative* Problem Noted Date Diagnosed Date Resolved Date Prediabetes 07/17/2019 05/13/2021 Xgsb-yg-yxahpz transgender p erson on hormone therapy 08/23/2018 09/01/2021 documented as of this encounter (statuses as of 09/10/2022) [facility] History of Past illness Narrative* Problem Noted Date Diagnosed Date Resolved Date Prediabetes 07/17/2019 05/13/2021 Zaxs-ps-vhqheo transgender p erson on hormone therapy 08/23/2018 09/01/2021 documented as of this encounter (statuses as of 09/15/2022) [facility] History of Past illness Narrative* Problem Noted Date Diagnosed Date Resolved Date Prediabetes 07/17/2019 05/13/2021 Wtne-de-gnpaza transgender p erson on hormone therapy 08/23/2018 09/01/2021 documented as of this encounter (statuses as of 09/16/2022) [facility] History of Past illness Narrative* Problem Noted Date Diagnosed Date Resolved Date Prediabetes 07/17/2019 05/13/2021 Hmsg-ye-ryunxp transgender p erson on hormone therapy 08/23/2018 09/01/2021 documented as of this encounter (statuses as of 11/25/2022) [facility] History of Past illness Narrative* Problem Noted Date Diagnosed Date Resolved Date Prediabetes 07/17/2019 05/13/2021 Mscf-qt-llzlej transgender p erson on hormone therapy 08/23/2018 09/01/2021 documented as of this encounter (statuses as of 12/12/2022) [facility] History of Past illness Narrative* Problem Noted Date Diagnosed Date Resolved Date Prediabetes 07/17/2019 05/13/2021 Rlct-jy-idbarw transgender p erson on hormone therapy 08/23/2018 09/01/2021 documented as of this encounter (statuses as of 12/12/2022) [facility] History of Past illness Narrative* Problem Noted Date Diagnosed Date Resolved Date Prediabetes 07/17/2019 05/13/2021 Nppn-vv-pzmtbj transgender p erson on hormone therapy 08/23/2018 09/01/2021 documented as of this encounter (statuses as of 12/14/2022) [facility] History of Past illness Narrative* Problem Noted Date Diagnosed Date Resolved Date Prediabetes 07/17/2019 05/13/2021 Gttu-dn-kdkzhy transgender p erson on hormone therapy 08/23/2018 09/01/2021 documented as of this encounter (statuses as of 12/14/2022) [facility] History of Past illness Narrative* Problem Noted Date Diagnosed Date Resolved Date Prediabetes 07/17/2019 05/13/2021 Zwyk-na-xarpbk transgender p erson on hormone therapy 08/23/2018 09/01/2021 documented as of this encounter (statuses as of 12/15/2022) [facility] History of Past illness Narrative* Problem Noted Date Diagnosed Date Resolved Date Prediabetes 07/17/2019 05/13/2021 Ekrd-ge-xxvcko transgender p erson on hormone therapy 08/23/2018 09/01/2021 documented as of this encounter (statuses as of 01/03/2023) [facility] History of Past illness Narrative* Problem Noted Date Diagnosed Date Resolved Date Prediabetes 07/17/2019 05/13/2021 Vytl-ht-kubeya transgender p erson on hormone therapy 08/23/2018 09/01/2021 documented as of this encounter (statuses as of 01/20/2023) [facility] Diagnosis Prediabetes- Primary Other abnormal glucose Elevated LFTs Other abnormal blood chemistry [facility] Diagnosis Gender dysphoria- Primary Gender identity disorder in children Encounter for long-term (current) use of high-risk medication Encounter for long-term (current) use of other medications Elevated LFTs Other abnormal blood chemistry Prediabetes Other abnormal glucose Leg cramping Cramp of limb Nocturia [facility] Diagnosis Nocturia- Primary [facility] Diagnosis Elevated LFTs Other abnormal blood chemistry [facility] Diagnosis Type 2 diabetes mellitus with hyperglycemia, without long-term current use of insulin (HCC)- Primary [facility] Diagnosis Gender dysphoria Gender identity disorder in children Encounter for long-term (current) use of high-risk medication Encounter for long-term (current) use of other medications [facility] Diagnosis Mixed hyperlipidemia- Primary [facility] Diagnosis Colon cancer screening- Primary Special screening for malignant neoplasms, colon [facility] Diagnosis Gender dysphoria Gender identity disorder in children Encounter for long-term (current) use of high-risk medication Encounter for long-term (current) use of other medications [facility] Diagnosis Gender dysphoria Gender identity disorder in children Encounter for long-term (current) use of high-risk medication Encounter for long-term (current) use of other medications Primary hypertension Unspecified essential hypertension [facility] Diagnosis Gender dysphoria Gender identity disorder in children Encounter for long-term (current) use of high-risk medication Encounter for long-term (current) use of other medications Primary hypertension Unspecified essential hypertension [facility] Diagnosis Mixed hyperlipidemia- Primary Gender dysphoria Gender identity disorder in children Encounter for long-term (current) use of high-risk medication Encounter for long-term (current) use of other medications Type 2 diabetes mellitus with hyperglycemia, without long-term current use of insulin (HCC) documented [facility] this [facility] Diagnosis Gender dysphoria- Primary Gender identity disorder in children Type 2 diabetes mellitus with hyperglycemia, without long-term current use of insulin (HCC) Mixed hyperlipidemia Class 2 severe obesity with serious comorbidity and body mass index (BMI) of 38.0 to 38.9 in adult, unspecified obesity type (HCC) Elevated LFTs Other abnormal blood chemistry Hepatic steatosis Other chronic nonalcoholic liver disease Primary hypertension Unspecified essential hypertension Statin intolerance Other drug allergy Encounter for long-term (current) use of high-risk medication Encounter for long-term (current) use of other medications Depression screening Screening for depression [facility] Diagnosis Elevated liver enzymes- Primary Other nonspecific abnormal serum enzyme levels Hepatic steatosis Other chronic nonalcoholic liver disease [facility] Diagnosis Hepatic steatosis- Primary Other chronic nonalcoholic liver disease Elevated liver enzymes Other nonspecific abnormal serum enzyme levels [facility] Diagnosis Hepatic steatosis- Primary Other chronic nonalcoholic liver disease Elevated liver enzymes Other nonspecific abnormal serum enzyme levels Hepatic fibrosis Cirrhosis of liver without mention of alcohol [facility] Diagnosis Elevated ferritin- Primary Other abnormal blood chemistry Elevated liver enzymes Other nonspecific abnormal serum enzyme levels [facility] Diagnosis Elevated liver enzymes- Primary Other nonspecific abnormal serum enzyme levels [facility] Diagnosis Hepatic steatosis- Primary Other chronic nonalcoholic liver disease Elevated liver enzymes Other nonspecific abnormal serum enzyme levels Positive HANK (antinuclear antibody) Other and unspecified nonspecific immunological findings [facility] Diagnosis Elevated liver enzymes- Primary Other nonspecific abnormal serum enzyme levels Elevated liver enzymes Other nonspecific abnormal serum enzyme levels [facility] Diagnosis Type 2 diabetes mellitus with diabetic neuropathy, with long-term current use of insulin (HCC)- Primary Atrial flutter, unspecified type (HCC) Obesity, Class II, BMI 35-39.9 Obesity, unspecified Gonadal dysgenesis, 46, XY Gonadal dysgenesis Elevated liver enzymes Other nonspecific abnormal serum enzyme levels [facility] Diagnosis Atrial flutter, unspecified type (HCC)- Primary Mixed hyperlipidemia Primary hypertension Unspecified essential hypertension Type 2 diabetes mellitus with diabetic neuropathy, with long-term current use of insulin (HCC) Hepatic steatosis Other chronic nonalcoholic liver disease Elevated liver enzymes Other nonspecific abnormal serum enzyme levels [facility] Diagnosis Hepatic steatosis- Primary Other chronic nonalcoholic liver disease Elevated liver enzymes Other nonspecific abnormal serum enzyme levels Class 3 severe obesity due to excess calories without serious comorbidity in adult, unspecified BMI (HCC) HANK positive Other and unspecified nonspecific immunological findings [facility] Diagnosis Type 2 diabetes mellitus with hyperglycemia, without long-term current use of insulin (HCC)- Primary Hepatic steatosis Other chronic nonalcoholic liver disease [facility] Diagnosis Type 2 diabetes mellitus with diabetic neuropathy, with long-term current use of insulin (HCC) Atrial flutter, unspecified type (HCC) [facility] Diagnosis Type 2 diabetes mellitus with hyperglycemia, without long-term current use of insulin (HCC) Gender dysphoria Gender identity disorder in children Encounter for long-term (current) use of high-risk medication Encounter for long-term (current) use of other medications Type 2 diabetes mellitus with diabetic neuropathy, with long-term current use of insulin (HCC) Atrial flutter, unspecified type (HCC) Primary hypertension Unspecified essential hypertension [facility] Diagnosis Type 2 diabetes mellitus with hyperglycemia, without long-term current use of insulin (HCC) Type 2 diabetes mellitus with diabetic neuropathy, with long-term current use of insulin (HCC) Atrial flutter, unspecified type (HCC) Primary hypertension Unspecified essential hypertension Gender dysphoria Gender identity disorder in children Encounter for long-term (current) use of high-risk medication Encounter for long-term (current) use of other medications [facility] Diagnosis Type 2 diabetes mellitus with diabetic neuropathy, with long-term current use of insulin (HCC) [facility] Diagnosis Primary hypertension Unspecified essential hypertension Gender dysphoria Gender identity disorder in children Encounter for long-term (current) use of high-risk medication Encounter for long-term (current) use of other medications [facility] Diagnosis Type 2 diabetes mellitus with diabetic neuropathy, with long-term current use of insulin (HCC)- Primary Gender dysphoria Gender identity disorder in children Encounter for long-term (current) use of high-risk medication Encounter for long-term (current) use of other medications Primary hypertension Unspecified essential hypertension Atrial flutter, unspecified type (HCC) Hepatic steatosis Other chronic nonalcoholic liver disease [facility] Diagnosis Gender dysphoria Gender identity disorder in children Encounter for long-term (current) use of high-risk medication Encounter for long-term (current) use of other medications [facility] Colon cancer screening- Primary Special screening for malignant neoplasms, colon [facility] Diagnosis Type 2 diabetes mellitus with hyperglycemia, without long-term current use of insulin (HCC) [facility] Diagnosis Type 2 diabetes mellitus with diabetic neuropathy, with long-term current use of insulin (HCC)- Primary Primary hypertension Unspecified essential hypertension Gender dysphoria Gender identity disorder in children Encounter for long-term (current) use of high-risk medication Encounter for long-term (current) use of other medications Obesity, Class II, BMI 35-39.9 Obesity, unspecified Hepatic steatosis Other chronic nonalcoholic liver disease Encounter for screening mammogram for malignant neoplasm of breast Other screening mammogram [facility] Diagnosis Hepatic steatosis Other chronic nonalcoholic liver disease Elevated liver enzymes Other nonspecific abnormal serum enzyme levels Hepatic fibrosis Cirrhosis of liver without mention of alcohol [facility] Diagnosis Atrial flutter, unspecified type (HCC) [facility] Diagnosis Encounter for screening mammogram for malignant neoplasm of breast Other screening mammogram [facility]* Diagnosis Type 2 diabetes mellitus without retinopathy (HCC)- Primary Type II or unspecified type diabetes mellitus without mention of complication, not stated as uncontrolled Hypermetropia, bilateral Regular astigmatism of both eyes Regular astigmatism Presbyopia [facility]* Diagnosis Type 2 diabetes mellitus with diabetic neuropathy, with long-term current use of insulin (HCC) [facility] Diagnosis Typical atrial flutter (HCC)- Primary Atrial flutter Mixed hyperlipidemia Primary hypertension Unspecified essential hypertension Type 2 diabetes mellitus with diabetic neuropathy, with long-term current use of insulin (HCC) Abnormal electrocardiogram Nonspecific abnormal electrocardiogram (ECG) (EKG) Fatty liver Other chronic nonalcoholic liver disease documented in this encounter [facility] for referral (narrative)* Diagnostic Procedure Only (Routine) - Authorized Specialty Diagnoses / Procedures Referred By Contac t Referred To Contact US IMAGING Diagnoses Elevated LFTs Procedures US ABD RT UPPER QUADRANT US ABDOMINAL REAL TIME W/IMAGE LIMITED Latoya Avila APRN.[employer] [id number] [place] [address] Us Imaging Referral ID Status Reason Start Date Expiration Date Visits Requested Visits Authorized [id number] Authorized Auto-Generat ed Referral 05/08/2021 06/07/2022 1 1 [facility] for referral (narrative)* Diagnostic Procedure Only (Routine) - Closed Specialty Diagnoses / Procedures Referred By Contac t Referred To Contact US IMAGING Diagnoses Elevated LFTs Procedures US ABD RT UPPER QUADRANT US ABDOMINAL REAL TIME W/IMAGE LIMITED Latoya Avila APRN.LEAF BLENDER [address] [place] [address] Us Imaging Referral ID Status Reason Start Date Expiration Date V isits Requested Visits Authorized [id number] Closed Auto-Generate d Referral 05/08/2021 06/07/2022 1 1 [facility] for referral (narrative)* Outpatient Procedure (Routine) - Closed Specialty Diagnoses / Procedures Referred By Contac t Referred To Contact [facility] Diagnoses Hepatic steatosis Elevated liver enzymes Procedures DDI VIBRATION CONTROLLED TRANSIENT ELASTOGRAPHY (VCTE) LIVER ELASTOGRAPHY W/O IMAG W/I&R Alvin King PA-C [address] [place] [address] [facility] [address] [place] [address] Referral ID Status Reason Start Date Expiration Date V isits Requested Visits Authorized [id number] Closed Auto-Generate d Referral 03/05/2022 03/05/2023 1 1 [facility] for referral (narrative)* Diagnostic Procedure Only (Routine) - Pending Review Specialty Diagnoses / Procedures Referred By Contac t Referred To Contact [facility] Diagnoses Hepatic steatosis Elevated liver enzymes Hepatic fibrosis Procedures US ABD RT UPPER QUADRANT US ABDOMINAL REAL TIME W/IMAGE LIMITED Alvin King PA-C [address] [place] [address] Us Imaging Referral ID Status Reason Start Date Expiration Date Visits Requested Visits Authorized [id number] Pending Review Auto-Generat ed Referral 03/05/2022 04/04/2023 1 1 [facility] for referral (narrative)* Diagnostic Procedure Only (Routine) - Pending Review Specialty Diagnoses / Procedures Referred By Kaushal t Referred To Contact [facility] Diagnoses Encounter for screening mammogram for malignant neoplasm of breast Procedures ROSALINDA SCREENING SCREENING MAMMOGRAPHY BI 2-[place] [address] [place] [address] [facility] [address] [place] [address] Referral ID Status Reason Start Date Expiration Date Visits Requested Visits Authorized [id number] Pending Review Auto-Generat ed Referral 3 12/24/2023 1 1 * Consult, Test, Treat (Routine) - Authorized Specialty Diagnoses / Procedures Referred By Kaushal fernandes Referred To Contact Diagnoses Primary hypertension Type 2 diabetes mellitus with diabetic neuropathy, with long-term current use of insulin (HCC) Obesity, Class II, BMI 35-39.9 Hepatic steatosis Procedures ENDOCRINE MEDICAL WEIGHT MANAGEMENT OFFICE/OUTPATIENT [facility] 60-74 [place] [address] [place] [address] Referral ID Status Reason Start Date Expiration Date Visits Requested Visits Authorized [id number] Authorized PCP Requested Referral 3 11/24/2023 1 1 [facility] for referral (narrative)* Diagnostic Procedure Only (Routine) - Closed Specialty Diagnoses / Procedures Referred By Kaushal fernandes Referred To Contact [facility] Diagnoses Hepatic steatosis Elevated liver enzymes Hepatic fibrosis Procedures US ABD RT UPPER QUADRANT US ABDOMINAL REAL TIME W/IMAGE LIMITED Alvin King PA-C [address] [place] [address] Us Imaging [place] [address] Referral ID Status Reason Start Date Expiration Date V isits Requested Visits Authorized [id number] Closed Auto-Generate d Referral 03/05/2022 04/04/2023 1 1 [facility] for referral (narrative)* Diagnostic Procedure Only (Routine) - Closed Specialty Diagnoses / Procedures Referred By Contac t Referred To Contact [facility] Diagnoses Encounter for screening mammogram for malignant neoplasm of breast Procedures ROSALINDA SCREENING SCREENING MAMMOGRAPHY BI 2-[place] [address] [place] [address] [facility] [address] [place] [id number] Referral ID Status Reason Start Date Expiration Date V isits Requested Visits Authorized [id number] Closed Auto-Generate d Referral 11/24/2022 12/24/2023 1 1 [facility] for visit Narrative* Diagnostic Procedure Only (Routine) - Closed Specialty Diagnoses / Procedures Referred By Contac t Referred To Contact [facility] Diagnoses Elevated LFTs Procedures US ABD RT UPPER QUADRANT US ABDOMINAL REAL TIME W/IMAGE LIMITED Latoya Avila APRN.CNP [address] [place] [id number] Us Imaging Referral ID Status Reason Start Date Expiration Date V isits Requested Visits Authorized [id number] Closed Auto-Generate d Referral 05/08/2021 06/07/2022 1 1 [facility] for visit Narrative* Outpatient Procedure (Routine) - Closed Specialty Diagnoses / Procedures Referred By Contac t Referred To Contact [facility] Diagnoses Hepatic steatosis Elevated liver enzymes Procedures DDI VIBRATION CONTROLLED TRANSIENT ELASTOGRAPHY (VCTE) LIVER ELASTOGRAPHY W/O IMAG W/I&R Alvin King PA-C [address] [place] [address] [facility] [address] [place] [address] Referral ID Status Reason Start Date Expiration Date V isits Requested Visits Authorized [id number] Closed Auto-Generate d Referral 03/05/2022 03/05/2023 1 [facility] Procedure Only (Routine) - Closed Specialty Diagnoses / Procedures Referred By Maameac t Referred To Contact [facility] Diagnoses Encounter for screening mammogram for malignant neoplasm of breast Procedures ROSALINDA SCREENING SCREENING MAMMOGRAPHY BI 2-[place] [address] [place] [address] [facility] [address] [place] [address] Referral ID Status Reason Start Date Expiration Date V isits Requested Visits Authorized [id number] Closed Auto-Generate d Referral 11/24/2022 12/24/2023 1 1 [facility] Summary Purpose Family History No Family History Records FoundNo Family History Records Found Advance Directives No Advanced Directives Records FoundNo Advanced Directives Records Found Reason for Referral Specialty Diagnoses / Procedures Referred By Kaushal t Referred To Contact Diagnoses Class 2 severe obesity with serious comorbidity and body mass index (BMI) of 38.0 to 38.9 in adult, unspecified obesity type (HCC) Procedures ENDOCRINE MEDICAL WEIGHT MANAGEMENT OFFICE/OUTPATIENT [facility] 60-74 MINUTES Latoya Avila APRN.LEAF BLENDER [id number] [place] [address] Referral ID Status Reason Start Date Expiration Date Visits Requested Visits Authorized [id number] Authorized PCP Requested Referral 03/05/2022 03/05/2023 1 1 Specialty Diagnoses / Procedures Referred By Maameac t Referred To Contact Diagnoses Primary hypertension Mixed hyperlipidemia Statin intolerance Procedures CONSULT TO PREVENTIVE CARD OFFICE/OUTPATIENT [facility] 60-74 MINUTES Latoya Avila, ZELDA.LEAF BLENDER [address] [place] [address] Referral ID Status Reason Start Date Expiration Date Visits Requested Visits Authorized [id number] Authorized PCP Requested Referral 03/05/2022 03/05/2023 1 1 Specialty Diagnoses / Procedures Referred By Contac t Referred To Contact Cardiology Diagnoses Atrial flutter, unspecified type (HCC) Procedures CONSULT TO CARDIOLOGY OFFICE/OUTPATIENT [facility] 60-[place] [address] [place] [address] Referral ID Status Reason Start Date Expiration Date Visits Requested Visits Authorized [id number] Authorized PCP Requested Referral 03/24/2022 03/24/2023 1 1 [facility] Diagnoses / [facility] Diagnoses Atrial flutter, unspecified type (HCC) Procedures ECHO ECHO TTHRC R-T 2D W/WOM-MODE COMPL SPEC&[place] [address] [place] [address] [address] Referral ID Status Reason Start Date Expiration Date Visits Requested Visits Authorized [id number] Additional Clinical Info Needed Auto-Generat ed Referral 03/24/2022 03/24/2023 1 1 Specialty Diagnoses / [facility] Diagnoses Abnormal electrocardiogram Procedures CT CALCIUM SCORING SELF PAY ([place]) UNLISTED COMPUTED [place] [address] [place] [address] [place] [address] Referral ID Status Reason Start Date Expiration Date Visits Requested Visits Authorized [id number] Pending Review Auto-Generat ed Referral 3 02/18/2024 1 1 Specialty Diagnoses / Procedures [facility] To Contact [facility] Diagnoses Typical atrial flutter (HCC) Procedures ECHO ECHO TTHRC R-T 2D W/WOM-MODE COMPL SPEC&[place] [address] [place] [address] [address] Referral ID Status Reason Start Date Expiration Date Visits Requested Visits Authorized [id number] Authorized Auto-Generat ed Referral 3 03/20/2023 1 1 Medications Administered Section Inactive Administered Medications - up to 3 most recent administrations Medication Order MAR Action Action Date Dose Rate Site PHENYLephrine 2.5 % 1 Drop (AK-DILATE, MEI-SYNEPHRINE) 1 Drop, BOTH EYES, ONCE, 1 dose, On Tue12/14/22 at 1000, FOR OPHTHALMIC USE ONLY PROTECT FROM LIGHT Given 12/14/2022 10:00 AM EST 1 Drop proparacaine 0.5 % 1 Drop (ALCAINE) 1 Drop, BOTH EYES, ONCE, 1 dose, On Tue12/14/22 at 1000, FOR THE EYE Given 12/14/2022 10:00 AM EST 1 Drop tropicamide 1 % 1 Drop (MYDRIACYL) 1 Drop, BOTH EYES, ONCE, 1 dose, On Tue12/14/22 at 1000, FOR THE EYE Given 12/14/2022 10:00 AM EST 1 Drop Additional Source Comments INFORMATION SOURCE (unrecogn ized section and content) DATE CREATED AUTHOR AUTHOR'S ORGANIZ ATION 02/12/2023 [facility] Source Comments (unrecognize d section and content) In the event this informatio n is protected by the Federal Confidentiality of Alcohol and Drug Abuse Patient Records regulations: The Federal rules restrict any use of the information to criminally investigate or prosecute any alcohol or drug abuse patient.[facility] the event this information is protected by the Federal Confidentiality of Alcohol and Drug Abuse Patient Records regulations: The Federal rules restrict any use of the information to criminally investigate or prosecute any alcohol or drug abuse patient.[facility] the event this information is protected by the Federal Confidentiality of Alcohol and Drug Abuse Patient Records regulations: The Federal rules restrict any use of the information to criminally investigate or prosecute any alcohol or drug abuse patient.[facility] the event this information is protected by the Federal Confidentiality of Alcohol and Drug Abuse Patient Records regulations: The Federal rules restrict any use of the information to criminally investigate or prosecute any alcohol or drug abuse patient.[facility] the event this information is protected by the Federal Confidentiality of Alcohol and Drug Abuse Patient Records regulations: The Federal rules restrict any use of the information to criminally investigate or prosecute any alcohol or drug abuse patient.[facility] the event this information is protected by the Federal Confidentiality of Alcohol and Drug Abuse Patient Records regulations: The Federal rules restrict any use of the information to criminally investigate or prosecute any alcohol or drug abuse patient.[facility] the event this information is protected by the Federal Confidentiality of Alcohol and Drug Abuse Patient Records regulations: The Federal rules restrict any use of the information to criminally investigate or prosecute any alcohol or drug abuse patient.[facility]In the event this information is protected by the Federal Confidentiality of Alcohol and Drug Abuse Patient Records regulations: The Federal rules restrict any use of the information to criminally investigate or prosecute any alcohol or drug abuse patient.[facility] the event this information is protected by the Federal Confidentiality of Alcohol and Drug Abuse Patient Records regulations: The Federal rules restrict any use of the information to criminally investigate or prosecute any alcohol or drug abuse patient.[facility] the event this information is protected by the Federal Confidentiality of Alcohol and Drug Abuse Patient Records regulations: The Federal rules restrict any use of the information to criminally investigate or prosecute any alcohol or drug abuse patient.[facility] HospitalIn the event this information is protected by the Federal Confidentiality of Alcohol and Drug Abuse Patient Records regulations: The Federal rules restrict any use of the information to criminally investigate or prosecute any alcohol or drug abuse patient.[facility]In the event this information is protected by the Federal Confidentiality of Alcohol and Drug Abuse Patient Records regulations: The Federal rules restrict any use of the information to criminally investigate or prosecute any alcohol or drug abuse patient.[facility]In the event this information is protected by the Federal Confidentiality of Alcohol and Drug Abuse Patient Records regulations: The Federal rules restrict any use of the information to criminally investigate or prosecute any alcohol or drug abuse patient.[facility]In the event this information is protected by the Federal Confidentiality of Alcohol and Drug Abuse Patient Records regulations: The Federal rules restrict any use of the information to criminally investigate or prosecute any alcohol or drug abuse patient.[facility]In the event this information is protected by the Federal Confidentiality of Alcohol and Drug Abuse Patient Records regulations: The Federal rules restrict any use of the information to criminally investigate or prosecute any alcohol or drug abuse patient.[facility] HospitalIn the event this information is protected by the Federal Confidentiality of Alcohol and Drug Abuse Patient Records regulations: The Federal rules restrict any use of the information to criminally investigate or prosecute any alcohol or drug abuse patient.[facility] HospitalIn the event this information is protected by the Federal Confidentiality of Alcohol and Drug Abuse Patient Records regulations: The Federal rules restrict any use of the information to criminally investigate or prosecute any alcohol or drug abuse patient.[facility] HospitalIn the event this information is protected by the Federal Confidentiality of Alcohol and Drug Abuse Patient Records regulations: The Federal rules restrict any use of the information to criminally investigate or prosecute any alcohol or drug abuse patient.[facility] HospitalIn the event this information is protected by the Federal Confidentiality of Alcohol and Drug Abuse Patient Records regulations: The Federal rules restrict any use of the information to criminally investigate or prosecute any alcohol or drug abuse patient.[facility] HospitalIn the event this information is protected by the Federal Confidentiality of Alcohol and Drug Abuse Patient Records regulations: The Federal rules restrict any use of the information to criminally investigate or prosecute any alcohol or drug abuse patient.[facility] HospitalIn the event this information is protected by the Federal Confidentiality of Alcohol and Drug Abuse Patient Records regulations: The Federal rules restrict any use of the information to criminally investigate or prosecute any alcohol or drug abuse patient.[facility]In the event this information is protected by the Federal Confidentiality of Alcohol and Drug Abuse Patient Records regulations: The Federal rules restrict any use of the information to criminally investigate or prosecute any alcohol or drug abuse patient.[facility]In the event this information is protected by the Federal Confidentiality of Alcohol and Drug Abuse Patient Records regulations: The Federal rules restrict any use of the information to criminally investigate or prosecute any alcohol or drug abuse patient.[facility]In the event this information is protected by the Federal Confidentiality of Alcohol and Drug Abuse Patient Records regulations: The Federal rules restrict any use of the information to criminally investigate or prosecute any alcohol or drug abuse patient.[facility]In the event this information is protected by the Federal Confidentiality of Alcohol and Drug Abuse Patient Records regulations: The Federal rules restrict any use of the information to criminally investigate or prosecute any alcohol or drug abuse patient.[facility]In the event this information is protected by the Federal Confidentiality of Alcohol and Drug Abuse Patient Records regulations: The Federal rules restrict any use of the information to criminally investigate or prosecute any alcohol or drug abuse patient.[facility] HospitalIn the event this information is protected by the Federal Confidentiality of Alcohol and Drug Abuse Patient Records regulations: The Federal rules restrict any use of the information to criminally investigate or prosecute any alcohol or drug abuse patient.[facility] HospitalIn the event this information is protected by the Federal Confidentiality of Alcohol and Drug Abuse Patient Records regulations: The Federal rules restrict any use of the information to criminally investigate or prosecute any alcohol or drug abuse patient.[facility]In the event this information is protected by the Federal Confidentiality of Alcohol and Drug Abuse Patient Records regulations: The Federal rules restrict any use of the information to criminally investigate or prosecute any alcohol or drug abuse patient.[facility]In the event this information is protected by the Federal Confidentiality of Alcohol and Drug Abuse Patient Records regulations: The Federal rules restrict any use of the information to criminally investigate or prosecute any alcohol or drug abuse patient.[facility]In the event this information is protected by the Federal Confidentiality of Alcohol and Drug Abuse Patient Records regulations: The Federal rules restrict any use of the information to criminally investigate or prosecute any alcohol or drug abuse patient.[facility]In the event this information is protected by the Federal Confidentiality of Alcohol and Drug Abuse Patient Records regulations: The Federal rules restrict any use of the information to criminally investigate or prosecute any alcohol or drug abuse patient.[facility] HospitalIn the event this information is protected by the Federal Confidentiality of Alcohol and Drug Abuse Patient Records regulations: The Federal rules restrict any use of the information to criminally investigate or prosecute any alcohol or drug abuse patient.[facility] HospitalIn the event this information is protected by the Federal Confidentiality of Alcohol and Drug Abuse Patient Records regulations: The Federal rules restrict any use of the information to criminally investigate or prosecute any alcohol or drug abuse patient.[facility] HospitalIn the event this information is protected by the Federal Confidentiality of Alcohol and Drug Abuse Patient Records regulations: The Federal rules restrict any use of the information to criminally investigate or prosecute any alcohol or drug abuse patient.[facility] HospitalIn the event this information is protected by the Federal Confidentiality of Alcohol and Drug Abuse Patient Records regulations: The Federal rules restrict any use of the information to criminally investigate or prosecute any alcohol or drug abuse patient.[facility] HospitalIn the event this information is protected by the Federal Confidentiality of Alcohol and Drug Abuse Patient Records regulations: The Federal rules restrict any use of the information to criminally investigate or prosecute any alcohol or drug abuse patient.[facility] HospitalIn the event this information is protected by the Federal Confidentiality of Alcohol and Drug Abuse Patient Records regulations: The Federal rules restrict any use of the information to criminally investigate or prosecute any alcohol or drug abuse patient.[facility] HospitalIn the event this information is protected by the Federal Confidentiality of Alcohol and Drug Abuse Patient Records regulations: The Federal rules restrict any use of the information to criminally investigate or prosecute any alcohol or drug abuse patient.[facility] HospitalIn the event this information is protected by the Federal Confidentiality of Alcohol and Drug Abuse Patient Records regulations: The Federal rules restrict any use of the information to criminally investigate or prosecute any alcohol or drug abuse patient.[facility] HospitalIn the event this information is protected by the Federal Confidentiality of Alcohol and Drug Abuse Patient Records regulations: The Federal rules restrict any use of the information to criminally investigate or prosecute any alcohol or drug abuse patient.[facility] HospitalIn the event this information is protected by the Federal Confidentiality of Alcohol and Drug Abuse Patient Records regulations: The Federal rules restrict any use of the information to criminally investigate or prosecute any alcohol or drug abuse patient.[facility] HospitalIn the event this information is protected by the Federal Confidentiality of Alcohol and Drug Abuse Patient Records regulations: The Federal rules restrict any use of the information to criminally investigate or prosecute any alcohol or drug abuse patient.[facility] HospitalIn the event this information is protected by the Federal Confidentiality of Alcohol and Drug Abuse Patient Records regulations: The Federal rules restrict any use of the information to criminally investigate or prosecute any alcohol or drug abuse patient.[facility] HospitalIn the event this information is protected by the Federal Confidentiality of Alcohol and Drug Abuse Patient Records regulations: The Federal rules restrict any use of the information to criminally investigate or prosecute any alcohol or drug abuse patient.[facility]In the event this information is protected by the Federal Confidentiality of Alcohol and Drug Abuse Patient Records regulations: The Federal rules restrict any use of the information to criminally investigate or prosecute any alcohol or drug abuse patient.[facility] HospitalIn the event this information is protected by the Federal Confidentiality of Alcohol and Drug Abuse Patient Records regulations: The Federal rules restrict any use of the information to criminally investigate or prosecute any alcohol or drug abuse patient.[facility] HospitalIn the event this information is protected by the Federal Confidentiality of Alcohol and Drug Abuse Patient Records regulations: The Federal rules restrict any use of the information to criminally investigate or prosecute any alcohol or drug abuse patient.[facility] HospitalIn the event this information is protected by the Federal Confidentiality of Alcohol and Drug Abuse Patient Records regulations: The Federal rules restrict any use of the information to criminally investigate or prosecute any alcohol or drug abuse patient.[facility] HospitalIn the event this information is protected by the Federal Confidentiality of Alcohol and Drug Abuse Patient Records regulations: The Federal rules restrict any use of the information to criminally investigate or prosecute any alcohol or drug abuse patient.[facility] HospitalIn the event this information is protected by the Federal Confidentiality of Alcohol and Drug Abuse Patient Records regulations: The Federal rules restrict any use of the information to criminally investigate or prosecute any alcohol or drug abuse patient.[facility] HospitalIn the event this information is protected by the Federal Confidentiality of Alcohol and Drug Abuse Patient Records regulations: The Federal rules restrict any use of the information to criminally investigate or prosecute any alcohol or drug abuse patient.[facility] Reason for Visit (unrecogniz ed section and content) Reason Comments F/U on HT Reason Comments Lab Orders Reason Comments Electronic Communication Reason Comments Refill Request Reason Comments Orders cologuard Reason Onset Date Comments Refill Request 10/11/2021 Reason Comments Research Reason Onset Date Comments Refill Request 02/11/2022 Reason Comments Follow Up dm Reason Comments Established Patient Elevated LFT Follow Up Reason Comments elevated glucose Reason Comments Appointment Reason Comments Patient Update Reason Comments New Patient Evaluation Specialty Diagnoses / Procedures Referred By Contac t Referred To Contact Cardiology Diagnoses Atrial flutter, unspecified type (HCC) Procedures CONSULT TO CARDIOLOGY OFFICE/OUTPATIENT NEW HIGH MDM 60-[place] [address] [place] [address] Referral ID Status Reason Start Date Expiration Date V isits Requested Visits Authorized [id number] Closed PCP Requested Referral 03/24/2022 03/24/2023 1 1 Reason Comments Follow Up Reason Onset Date Comments Refill Request 05/06/2022 Reason Onset Date Comments Refill Request 05/11/2022 Reason Onset Date Comments Refill Request 05/12/2022 Reason Onset Date Comments Refill Request 07/19/2022 Reason Onset Date Comments Refill Request 09/15/2022 Reason Comments Medication Problem Reason Comments Follow Up Reason Comments Radiology US Specialty Diagnoses / Procedures Referred By Contac t Referred To Contact US IMAGING Diagnoses Hepatic steatosis Elevated liver enzymes Hepatic fibrosis Procedures US ABD RT UPPER QUADRANT US ABDOMINAL REAL TIME W/IMAGE LIMITED Alvin King PA-C [address] [place] [address] [place] [address] Referral ID Status Reason Start Date Expiration Date V isits Requested Visits Authorized [id number] Closed Auto-Generate d Referral 03/05/2022 04/04/2023 1 1 Reason Comments Diabetic Eye Exam Type 2 IDDM Reason Onset Date Comments Refill Request 01/02/2023 Care Teams (unrecognized sec tion and content) Guest Services Attendant Relationship Specialty Start Date End Date Latoya Avila APRN.LEAF [employer]ENDER [address] [place] [address] PCP - General Internal Medicine 07/16/19 Alem Mathias RN Registered Nurse 09/25/20 Guest Services Attendant Relationship Specialty Start Date End Date Latoya Avila APRN.LEAF BLENDER [address] [place] [address] PCP - General Internal Medicine 07/16/19 Alem Mathias, RN Registered Nurse 09/25/20 Guest Services Attendant Relationship Specialty Start Date End Date Latoya Avila APRN.LEAF BLENDER [id number] [place] [address] PCP - General Internal Medicine 07/16/19 Alem Mathias, RN Registered Nurse 09/25/20 Guest Services Attendant Relationship Specialty Start Date End Date Latoya Avila APRN.LEAF BLENDER [address] [place] [address] PCP - General Internal Medicine 07/16/19 Alem Mathias, RN Registered Nurse 09/25/20 Guest Services Attendant Relationship Specialty Start Date End Date Latoya Avila APRN.LEAF BLENDER [id number] [place] [address] PCP - General Internal Medicine 07/16/19 Alem Mathias, RN Registered Nurse 09/25/20 Guest Services Attendant Relationship Specialty Start Date End Date Latoya Avila APRN.LEAF BLENDER [address] [place] [address] PCP - General Internal Medicine 07/16/19 Alem Mathias, RN Registered Nurse 09/25/20 Guest Services Attendant Relationship Specialty Start Date End Date Latoya Avila APRN.LEAF BLENDER [address] [place] [address] PCP - General Internal Medicine 07/16/19 Alem Mathias, RN Registered Nurse 09/25/20 Guest Services Attendant Relationship Specialty Start Date End Date Latoya Avila APRN.LEAF BLENDER [address] [place] [address] PCP - General Internal Medicine 07/16/19 Alem Mathias, RN Registered Nurse 09/25/20 Guest Services Attendant Relationship Specialty Start Date End Date Latoya Avila APRN.LEAF BLENDER [id number] [place] [address] PCP - General Internal Medicine 07/16/19 Alem Mathias, RN Registered Nurse 09/25/20 Guest Services Attendant Relationship Specialty Start Date End Date Latoya Avila APRN.LEAF BLENDER [id number] [place] [address] PCP - General Internal Medicine 07/16/19 Alem Mathias, RN Registered Nurse 09/25/20 Guest Services Attendant Relationship Specialty Start Date End Date Latoya Avila APRN.LEAF BLENDER [address] [place] [address] PCP - General Internal Medicine 07/16/19 Alem Mathias, RN Registered Nurse 09/25/20 Guest Services Attendant Relationship Specialty Start Date End Date Latoya Avila APRN.LEAF BLENDER [address] [place] [address] PCP - General Internal Medicine 07/16/19 Alem Mathias, RN Registered Nurse 09/25/20 Guest Services Attendant Relationship Specialty Start Date End Date Latoya Avila APRN.LEAF BLENDER [address] [place] [address] PCP - General Internal Medicine 07/16/19 Alem Mathias, RN Registered Nurse 09/25/20 Guest Services Attendant Relationship Specialty Start Date End Date Latoya Avila APRN.LEAF BLENDER [address] [place] [address] PCP - General Internal Medicine 07/16/19 Alem Mathias, RN Registered Nurse 09/25/20 Guest Services Attendant Relationship Specialty Start Date End Date Latoya Avila APRN.LEAF BLENDER [address] [place] [address] PCP - General Internal Medicine 07/16/19 Alem Mathias, RN Registered Nurse 09/25/20 Guest Services Attendant Relationship Specialty Start Date End Date Latoya Avila APRN.LEAF BLENDER [address] [place] [address] PCP - General Internal Medicine 07/16/19 Alem Mathias, RN Registered Nurse 09/25/20 Guest Services Attendant Relationship Specialty Start Date End Date Latoya Avila APRN.LEAF BLENDER [address] [place] [address] PCP - General Internal Medicine 07/16/19 Alem Mathias, RN Registered Nurse 09/25/20 Guest Services Attendant Relationship Specialty Start Date End Date Darwin Kell [address] [place], [place] [id number] PCP - General 09/05/14 Guest Services Attendant Relationship Specialty Start Date End Date Latoya Avila APRN.LEAF BLENDER [address] [place] [address] PCP - General Internal Medicine 07/16/19 Alem Mathias, RN Registered Nurse 09/25/20 Guest Services Attendant Relationship Specialty Start Date End Date Latoya Avila APRN.LEAF BLENDER [address] [place] [address] PCP - General Internal Medicine 07/16/19 Alem Mathias, RN Registered Nurse 09/25/20 Guest Services Attendant Relationship Specialty Start Date End Date Latoya Avila APRN.LEAF BLENDER [address] [place] [address] PCP - General Internal Medicine 07/16/19 Alem Mathias, RN Registered Nurse 09/25/20 Guest Services Attendant Relationship Specialty Start Date End Date Latoya Avila APRN.LEAF BLENDER [address] [place] [address] PCP - General Internal Medicine 07/16/19 Alem Mathias, RN Registered Nurse 09/25/20 Guest Services Attendant Relationship Specialty Start Date End Date Latoya Avila APRN.LEAF BLENDER [address] [place] [address] PCP - General Internal Medicine 07/16/19 Alem Mathias, RN Registered Nurse 09/25/20 Guest Services Attendant Relationship Specialty Start Date End Date Latoya Avila APRN.LEAF BLENDER [address] [place] [address] PCP - General Internal Medicine 07/16/19 Alem Mathias, RN Registered Nurse 09/25/20 Guest Services Attendant Relationship Specialty Start Date End Date Latoya Avila APRN.LEAF BLENDER [address] [place] [address] PCP - General Internal Medicine 07/16/19 Alem Mathias, RN Registered Nurse 09/25/20 Guest Services Attendant Relationship Specialty Start Date End Date Latoya Avila APRN.LEAF BLENDER [address] [place] [address] PCP - General Internal Medicine 07/16/19 Alem Mathias, RN Registered Nurse 09/25/20 Guest Services Attendant Relationship Specialty Start Date End Date Latoya Avila APRN.LEAF BLENDER [address] [place] [address] PCP - General Internal Medicine 07/16/19 Alem Mathias, RN Registered Nurse 09/25/20 Guest Services Attendant Relationship Specialty Start Date End Date Latoya Avila APRN.LEAF BLENDER [address] [place] [address] PCP - General Internal Medicine 07/16/19 Alem Mathias, RN Registered Nurse 09/25/20 Guest Services Attendant Relationship Specialty Start Date End Date Latoya Avila APRN.LEAF BLENDER [address] [place] [address] PCP - General Internal Medicine 07/16/19 Alem Mathias, RN Registered Nurse 09/25/20 Guest Services Attendant Relationship Specialty Start Date End Date Latoya Avila APRN.LEAF BLENDER [address] [place] [address] PCP - General Internal Medicine 07/16/19 Alem Mathias, RN Registered Nurse 09/25/20 Guest Services Attendant Relationship Specialty Start Date End Date Latoya Avila APRN.LEAF BLENDER [address] [place] [address] PCP - General Internal Medicine 07/16/19 Alem Mathias, RN Registered Nurse 09/25/20 Guest Services Attendant Relationship Specialty Start Date End Date Latoya Avila APRN.LEAF BLENDER [address] [place] [address] PCP - General Internal Medicine 07/16/19 Alem Mathias, RN Registered Nurse 09/25/20 Guest Services Attendant Relationship Specialty Start Date End Date Latoya Avila APRN.LEAF BLENDER [address] [place] [address] PCP - General Internal Medicine 07/16/19 Alem Leon RN Registered Nurse 09/25/20 Guest Services Attendant Relationship Specialty Start Date End Date Latoya Avila APRN.LEAF BLENDER [address] [place] [address] PCP - General Internal Medicine 07/16/19 Alem Leon, RN Registered Nurse 09/25/20 Guest Services Attendant Relationship Specialty Start Date End Date Latoya Avila APRN.LEAF BLENDER [address] [place] [address] PCP - General Internal Medicine 07/16/19 Alem Leon, RN Registered Nurse 09/25/20 Guest Services Attendant Relationship Specialty Start Date End Date Latoya Avila APRN.LEAF BLENDER [id number] [place] [address] PCP - General Internal Medicine 07/16/19 Alem Leon, RN Registered Nurse 09/25/20 Guest Services Attendant Relationship Specialty Start Date End Date Latoya Avila APRN.LEAF BLENDER [address] [place] [address] PCP - General Internal Medicine 07/16/19 Alem Leon, RN Registered Nurse 09/25/20 Guest Services Attendant Relationship Specialty Start Date End Date Latoya Avila APRN.LEAF BLENDER [address] [place] [address] PCP - General Internal Medicine 07/16/19 Alem Leon, RN Registered Nurse 09/25/20 Guest Services Attendant Relationship Specialty Start Date End Date Latoya Avila APRN.LEAF BLENDER [id number] [place] [address] PCP - General Internal Medicine 07/16/19 Alem Leon, RN Registered Nurse 09/25/20 Guest Services Attendant Relationship Specialty Start Date End Date Latoya AvilaZELDA.[facility] [address] [place] [address] PCP - General Internal Medicine 07/16/19 Alem Leon RN Registered Nurse 09/25/20 FOR RECORDS PERTAINING TO PATIENTS WHO ARE OR HAVE BEEN ENROLLED IN A CHEMICAL DEPENDENCY/SUBSTANCEABUSE PROGRAM, SOME INFORMATION MAY BE OMITTED. This clinical summary was aggregated from multiple sources. Caution should be exercised in using it in the provision of clinical care. This summary normalizes information from multiple sources, and as a consequence, information in this document may materially change the coding, format and clinical context of patient data. In addition, data may be omitted in some cases. CLINICAL DECISIONS SHOULD BE BASED ON THE PRIMARY CLINICAL RECORDS. [facility] [employer] [facility]. provides no warranty or guarantee of the accuracy or completeness of information in this document.
[2023-03-05 13:08] LABS: Anion Gap 7 (5-15); BUN 19 mg/dL (7-18); BUN/Creat Ratio 18.8 RATIO (10-20); Calcium,Total 9.4 mg/dL (8.5-10.1); Chloride 100 mmol/L (98-107); Creatinine, Serum 1.01 mg/dL (0.70-1.30); EST Glomerular Filtration Rate 82 mL/min (>60); Est Glom Filt Rate - Afr Amer 99 mL/min (>60); Estimated Creatinine Clearance 98.85 ml/min; Glucose 470 mg/dL (74-106); Potassium 4.6 mmol/L (3.5-5.1); Sodium Level 130 mmol/L (136-145)
[2023-03-05 13:09] LABS: Absolute Lymphocyte Count 1.52 X10^3/uL (0.83-4.51); Absolute Neutrophil Count 3.5 X10^3/uL (2.0-7.7); Basophil# 0.04 X10^3/uL; Basophil% 0.7 % (0-1); Eosinophil# 0.16 X10^3/uL; Eosinophils% 2.8 % (0-5); Hematocrit 44.8 % (40-54); Lymphocyte # 1.52 X10^3/ul (0.83-4.51); Mean Corp Hgb Conc 33.5 g/dL (32-36); Mean Corpuscular Hgb 28.2 pg (27.0-32.0); Mean Corpuscular Volume 84.4 fL (80-94); Monocyte% 7.1 % (0-10); NRBC Flagged by Analyzer 0 % (0-5); Platelet Count 217 K/mm3 (150-450); RBC Distribution Width CV 12.2 % (11.6-14.6); Red Blood Count 5.31 M/mm3 (4.6-6.2); White Blood Count 5.6 K/mm3 (4.4-11.0)
[2023-03-05] MEDS: Insulin Lispro 100 UNIT/ML INSULN.PEN 10 UNIT SC (14:05)
[2023-03-05 14:31] LABS: Bacteria 0 SEEN /hpf (None Seen); Mucous, Urine 0 SEEN /hpf (<or=2+); Red Blood Cells-Urine 0 SEEN /hpf (0-5); White Blood Cells 0 SEEN /hpf (0-5)
[2023-03-05 14:34] LABS: Color, Urine Yellow (Yellow); Glucose, Dipstick 1000 mg/dl (Normal); Ketone-Dipstick 5 mg/dl (Negative); Leukocyte Esterase-Dipstick Negative /ul (Negative); Nitrite-Dipstick Negative (Negative); Occult Blood-Urine 10 /ul (Negative); Protein-Dipstick Negative (Negative); Specific Gravity, Urine 1.015 (1.002-1.030); Urine Bilirubin Dipstick Negative (Negative); Urine Clarity Clear (Clear); Urine Urobilinogen Normal (Normal)
[2023-03-05 14:56] LABS: Squamous Epithelial Cells - UA 0-5 SEEN /hpf (0-5)
[2023-03-05 15:24] LABS: Bedside Glucose 335 mg/dL (74-106)
[2023-03-05 16:15] VITALS: BP 108/79; RESP 18; O2SAT 96
[2023-03-05 16:27] LABS: Bedside Glucose 289 mg/dL (74-106)
== END 2023-03-05 16:24 | disposition home or self-care (01) ==
PROVIDERS: Physician Assistant; Emergency Provider Emergency Medicine; Visit Provider Emergency Medicine
DX: E11.65 Type 2 diabetes mellitus with hyperglycemia (principal); Z79.4 Long term (current) use of insulin; I10 Essential (primary) hypertension; Z87.891 Personal history of nicotine dependence; Z79.84 Long term (current) use of oral hypoglycemic drugs; Z79.01 Long term (current) use of anticoagulants; Z79.899 Other long term (current) drug therapy
CPT/HCPCS: 80048; 81001; 82009; 82962; 85025; 99283; J7030

== ENCOUNTER 2024-02-23 16:02 | Emergency (ER) | payer MEDICAID, SELFPAY ==
[2024-02-23 16:03] VITALS: BP 153/90; PULSE 78; RESP 16; O2SAT 98
[2024-02-23 16:04] VITALS: BP 153/90; PULSE 78; RESP 16; TEMP 36.6; O2SAT 97; BMI 38.6
--- NOTE | 2024-02-23 16:11 | ED.RN ---
STROKE ALERT CANCELED D/T PROVIDER Osvaldo GARCIA SUSPECTING BELLS PALSY. THIS NURSE INSTRUCTED BY PROVIDER NOT TO NOTIFY [facility]
--- NOTE | 2024-02-23 16:12 | CT_ITS ---
We are attempting to reach an attending provider to discuss findings. An addendum with communication details will be sent when the communication is complete. STUDY: CT BRAIN WITHOUT CONTRAST REASON FOR EXAM: Male, 53 years old. facial droop RADIATION DOSAGE (If Supplied By Facility): CTDIvol = ( 44.99 ) mGy, DLP = ( 829.85 ) mGycm TECHNIQUE: Transaxial CT imaging of the brain was performed without administration of intravenous contrast material. Individualized dose optimization techniques were used for this CT. COMPARISON: No relevant priors. FINDINGS: Normal soft tissue structures. Normal calvarium. Normal ventricles and cortical sulci. No significant periventricular white matter disease . Normal basal ganglia and thalami. Normal brainstem. Normal cerebellum. There is no intracranial hemorrhage. There are no findings of an acute ischemic infarction. 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
--- NOTE | 2024-02-23 16:12 | ED.RN ---
PT. TAKEN TO CT AT THIS TIME FOR NON-CONTRAST CT PER PROVIDER
--- NOTE | 2024-02-23 16:13 | ED.VIS.STROK ---
HPI History of Present Illness Chief Complaint: Stroke Alert Informant: patient Narrative Narrative: 53-year-old patient presenting to the emergency room out of concern with facial droop. Patient states when she woke this morning and began brushing her teeth she noticed that the left side of her face appeared drooping. She states her left eye feels different than normal and that it seems matrix drier tender. She denies any skin rashes. She denies headache. No arm leg or balance issues. Patient is on Eliquis. [facility] Medical History (Updated 02/23/24 @ 16:[address] Cristian Murray, ) Atrial fibrillation Chondromalacia of right patella Type 2 diabetes mellitus Fatty liver Hypertension Home Medications ?Medication ?Instructions ?Recorded ?Last Taken ?Type estradiol 2 mg tablet 2 mg PO BID 04/08/20 Unknown History finasteride 5 mg tablet 5 mg PO DAILY 04/08/20 Unknown History lisinopril 10 mg tablet 10 mg PO DAILY 04/08/20 Unknown History pen needle, diabetic 32 gauge x #100 ea 08/27/21 Unknown Rx (BD Ultra-Fine Oneida Pen Needle) apixaban 5 mg tablet (Eliquis) 5 mg PO BID 05/14/22 Unknown History insulin aspart U-100 100 unit/mL 5 unit subcut TID 03/05/23 Unknown History subcutaneous cartridge insulin detemir U-100 100 unit/mL 22 unit subcut QHS 03/05/23 Unknown History (3 mL) subcutaneous pen metformin 500 mg tablet 500 mg PO BID 03/05/23 Unknown History metoprolol tartrate 25 mg tablet 25 mg PO BID 03/05/23 Unknown History acyclovir 400 mg tablet 1 tab PO 5X/DAY #40 tabs 02/23/24 Unknown Rx prednisone 20 mg tablet 60 mg (3 x 20 mg) PO DAILY #21 02/23/24 Unknown Rx TABLETS Allergy/AdvReac Type Severity Reaction Status Date / Time Penicillins Allergy Unknown Verified 02/23/24 16:03 atorvastatin AdvReac Severe myalgia Verified 02/23/24 16:03 Family History Other CVA (cerebral vascular accident) Diabetes Hypertension Social History Smoking Status: Former smoker alcohol intake: current alcohol intake frequency: 0-2 drinks per day substance use type: does not use what type of physical activity do you participate in: walking, swimming and other ROS ROS ED Constitutional Constitutional ED: Denies chills or weight loss Eyes Eyes: Denies change in vision or diplopia ENT ENT ED: Denies ear pain, rhinorrhea or sore throat Cardiovascular Cardiovascular: Denies chest pain, orthopnea, palpitations or racing heartbeat Respiratory/Chest Respiratory/Chest: Denies cough, dyspnea or orthopnea Gastrointestinal Gastrointestinal: Denies abdominal pain, diarrhea, nausea or vomiting Genitourinary Genitourinary ED: Denies dysuria, hematuria or urinary frequency Musculoskeletal Musculoskeletal: Denies arthralgias or myalgias Integumentary Denies abscess or rash Neurologic Neurologic: Reports other Details: See history of present illness ; Denies headache(s), paresthesias or weakness Psychiatric Psychiatric: Denies anxiety, depression, suicidal ideation or suicidal thoughts Endocrine Endocrinology: Denies polydipsia, polyphagia or polyuria Allergic/Immunologic Allergic/Immunologic ED: Denies mouth swelling, tongue swelling or urticaria EXAM Physical Exam Const Vital Signs: 02/23/24 16:03 02/23/24 16:04 Temperature 98 F Temperature Source Oral Pulse Rate 78 78 Respiratory Rate 16 16 Blood Pressure 153/90 H 153/90 H Blood Pressure Mean 111 111 Pulse Ox 98 97 Oxygen Delivery Method Room Air Room Air Positive well nourished and well developed General Appearance ED: well developed HEENT Reports normocephalic, head/scalp atraumatic, TM's clear and moist mucous membranes Tympanic Membrane ED: Yes TM's clear Eyes PERRL and EOMs intact bilaterally Neck no lymphadenopathy, supple and no JVD Resp normal respiratory effort and clear to auscultation bilaterally Cardio regular rate, regular rhythm and no murmurs GI normal to inspection, nondistended, normoactive bowel sounds and non-tender Palpation: soft Back/Spine no CVA tenderness and normal ROM Extremity normal to inspection General Extremety ED: Negative for edema General Extremity: Negative for edema Neuro oriented x3 Neuro Narrative: Patient has a mild to moderate left facial droop. There is decreased wrinkling of the forehead when compared to the right. The left eye she demonstrates weakness when close compared to the right. There is no significant tongue deviation. There is no vesicular rash. Sensorium / Orientation: alert Motor Exam: strength 5/5 throughout Psych mental status grossly normal Mood & Affect: Negative for depressed or tearful Skin no rashes or lesions noted and no wounds MDM MDM MDM Narrative Medical decision making narrative: Differential diagnosis includes but not limited to Flores's palsy malignancy stroke (hemorrhagic and ischemic) A stroke team had been called in triage and when I went to triage and evaluated the patient felt this was less likely to be stroke. Noncontrasted head CT was obtained and was negative. 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 I will be placing her on prednisone and acyclovir. We talked about eye treatment. We talked about elevation of blood sugar and the fact that some people may not have full resolution of symptomology. We talked about her symptoms getting worse before they get better. 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 : The above Results were Read Back by Jason Pickering MD to Cristian Murray DO, and understanding confirmed on 02/23/2024 16:33:16 (ET). Electronically Signed: Jason Pickering MD at 16:28 EST , Discharge Plan Triage Chief Complaint: Stroke Alert ED Provider: Cristian Murray Dx/Rx/DC Orders Clinical Impression: Flores's palsy, Type 2 diabetes mellitus Instructions: Flores's Palsy Prescriptions: New prednisone 20 mg tablet 60 mg PO DAILY Qty: 21 0RF acyclovir 400 mg tablet 1 tab PO 5X/DAY Qty: 40 0RF No Action (DME) pen needle, diabetic [BD Ultra-Fine Oneida Pen Needle] 32 gauge x 5/32 needle See Rx Instructions .Route Qty: 100 3RF Rx Instructions: daily lisinopril 10 MG tablet 10 mg PO DAILY estradiol 2 MG tablet 2 mg PO BID finasteride 5 MG tablet 5 mg PO DAILY Eliquis 5 mg tablet 5 mg PO BID Patient Comments: Take 1 tablet by mouth twice daily. insulin aspart U-100 100 unit/mL cartridge 5 unit subcut TID metoprolol tartrate 25 mg tablet 25 mg PO BID metformin 500 mg tablet 500 mg PO BID Levemir FlexTouch U-100 Insuln 100 unit/mL (3 mL) insulin pen 22 unit subcut QHS Primary Care Provider: Care Physician,No Primary Referrals: Care Physician,No Primary [Primary Care Provider] - Activity Restrictions/Additional Instructions: Please follow-up with primary care in 1 to 2 weeks. As we discussed symptoms can be permanent but the earlier you seek treatment the more likelihood of resolution. You are being placed on prednisone (a steroid) and we discussed this can raise your blood sugar. You are also being placed on antiviral medication. Your facial droop may get worse over the next couple days. If you find that your eye is tearing or unable to close properly you may benefit from taping it shut. Print Language: Slovak Disposition Disposition: Home, Self Care
[2024-02-23 16:22] VITALS: BMI 38.7
== END 2024-02-23 16:57 | disposition home or self-care (01) ==
PROVIDERS: Emergency Provider Emergency Medicine; Visit Provider Emergency Medicine
DX: G51.0 Bell's palsy (principal); I48.91 Unspecified atrial fibrillation; E11.9 Type 2 diabetes mellitus without complications; Z79.4 Long term (current) use of insulin; I10 Essential (primary) hypertension; Z87.891 Personal history of nicotine dependence; Z79.01 Long term (current) use of anticoagulants; Z79.84 Long term (current) use of oral hypoglycemic drugs; Z79.899 Other long term (current) drug therapy; Z88.0 Allergy status to penicillin
CPT/HCPCS: 70450; 99284

== ENCOUNTER 2024-12-02 10:23 | Emergency (ER) | payer MEDICAID, SELFPAY ==
[2024-12-02 10:25] VITALS: BP 131/79; PULSE 66; RESP 14; TEMP 36.6; O2SAT 98; BMI 38.2
--- NOTE | 2024-12-02 10:43 | RAD_ITS ---
PROCEDURE: KNEE 4 OR MORE VIEWS 12/02/2024 REASON FOR EXAM: MEDIAL PAIN TECHNIQUE: Procedure Code: RADKN Modality: DX Procedure: KNEE 4 OR MORE VIEWS Laterality: Right COMPARISON: None FINDINGS: Bones: Mild medial joint space narrowing. Negative for fracture. Distal femur negative. Distal tibia and fibula otherwisenegative. Joints: Mild medial joint space narrowing. Effusion: Negative for joint effusion. Soft tissue: Negative for soft tissue swelling. Other: Remainder of the exam negative. RAD/Knee 4 or More Views IMPRESSION: Degenerative changes of the right knee but no acute abnormality. Reading Location: [id number]
--- NOTE | 2024-12-02 10:44 | EDS_ITS ---
HPI History of Present Illness Chief Complaint: Lower Extremity Injury Informant: patient and spouse/S.O. Narrative Narrative: 54-year-old patient presenting to the emergency room with right knee pain. Patient states that she had a patellar dislocation in the past wearing knee sleeve. She has been doing pretty well with her knee health until yesterday she noticed some discomfort in the knee. It was more painful as she used to it. This morning it was more painful when she went to bear weight. She was going down the stairs and felt more discomfort and then when she turned to go back up the stairs she felt a significant pain in the posterior medial aspect of the knee. Now she is afraid to bend it out of concern for pain. She notes no swelling of the knee. She denies any recent fall or other injuries. [facility] Medical History Atrial flutter Gonadal dysgenesis, 44, XY Ongoing treatment with hormonal therapy BE (obstructive sleep apnea) Hyperlipidemia Atrial fibrillation Chondromalacia of right patella Obesity (BMI 30-39.9) Type 2 diabetes mellitus Fatty liver Hypertension Home Medications ?Medication ?Instructions ?Recorded ?Last Taken ?Type lisinopril 10 mg tablet 10 mg PO DAILY 04/08/20 Unkn own History pen needle, diabetic 32 gauge x #100 ea 08/27/21 Unkno wn Rx (BD Ultra-Fine [place] Pen Needle) insulin aspart U-100 100 unit/mL 5 unit subcut TID Unknown History subcutaneous cartridge insulin detemir U-100 100 unit/mL 22 unit subcut QHS 0 03/05/23 Unknown History (3 mL) subcutaneous pen metoprolol tartrate 25 mg tablet 25 mg PO BID 03/05/23 Unknown History estradiol 2 mg tablet 2 mg PO QDAY 07/16/24 Unknow n History metformin 500 mg tablet 1,500 mg PO QDAY 07/16/24 Un known History omega-3 fatty acids 1,000 mg 1,000 mg PO QDAY 07/16/24 Unknown History capsule rosuvastatin 20 mg tablet 20 mg PO DAILY 07/16/24 Unkn own History dulaglutide 4.5 mg/0.5 mL 4.5 mg subcut QWEEK 08/08/24 Unknown [facility] Allergy/AdvReac Type Severity Reaction Status Date / Time Penicillins Allergy Unknown Verified 12/02/24 10:23 atorvastatin AdvReac Severe myalgia Verified 12/02/24 10:23 Family History Other CVA (cerebral vascular accident) Diabetes Hypertension Surgical History No history of previous surgery Social History Smoking Status: Former smoker alcohol intake: current alcohol intake frequency: 0-2 drinks per day substance use type: does not use what type of physical activity do you participate in: walking, swimming and other ROS ROS ED Constitutional Constitutional ED: Denies chills or weight loss Eyes Eyes: Denies change in vision or diplopia ENT ENT ED: Denies ear pain, rhinorrhea or sore throat Cardiovascular Cardiovascular: Denies chest pain, orthopnea, palpitations or racing heartbeat Respiratory/Chest Respiratory/Chest: Denies cough, dyspnea or orthopnea Gastrointestinal Gastrointestinal: Denies abdominal pain, diarrhea, nausea or vomiting Genitourinary Genitourinary ED: Denies dysuria, hematuria or urinary frequency Musculoskeletal Musculoskeletal: Reports other Details: See history of present illness ; Denies arthralgias or myalgias Integumentary Denies abscess or rash Neurologic Neurologic: Denies headache(s) or weakness Psychiatric Psychiatric: Denies anxiety, depression, suicidal ideation or suicidal thoughts Endocrine Endocrinology: Denies polydipsia, polyphagia or polyuria Allergic/Immunologic Allergic/Immunologic ED: Denies mouth swelling, tongue swelling or urticaria EXAM Physical Exam Const Vital Signs: 12/02/24 10:25 Temperature 98 F Temperature Source Temporal Pulse Rate 66 Respiratory Rate 14 Blood Pressure 131/79 H Blood Pressure Mean 96 Pulse Ox 98 Oxygen Delivery Method Room Air Positive well nourished and well developed General Appearance ED: well developed and NAD HEENT Reports normocephalic, head/scalp atraumatic and moist mucous membranes Eyes PERRL and EOMs intact bilaterally Neck no lymphadenopathy, supple and no JVD Resp normal respiratory effort and clear to auscultation bilaterally Cardio regular rate, regular rhythm and no murmurs GI normal to inspection, nondistended, normoactive bowel sounds and non-tender Palpation: soft Back/Spine no CVA tenderness and normal ROM Extremity Extremity Narrative: The knee grossly appears without redness or significant swelling or effusion. The ligaments appear stable. Grind test is negative. She notes some mild discomfort of the posterior medial aspect of the knee. I do not appreciate a popliteal fossa fullness. Calf and distal leg foot are without physical findings. There is a slight click laterally at the patella with flexion. Skin exam is normal. General Extremety ED: Negative for edema General Extremity: Negative for edema Neuro oriented x3 and CN's II-XII intact bilaterally Sensorium / Orientation: alert Motor Exam: strength 5/5 throughout Psych mental status grossly normal Mood & Affect: Negative for depressed or tearful Skin no rashes or lesions noted and no wounds MDM MDM MDM Narrative Medical decision making narrative: Differential diagnosis includes but not limited to meniscal injury joint effusion septic joint degenerative arthrosis patellar subluxation/dislocation knee sprain I did interpretation of the plain films of the right knee as degenerative arthrosis. Clinically I am concerned that there may be a meniscal injury given the posterior medial pain particularly when she went to bend her knee and go up stairs. Would recommend limited range of motion acutely as well as anti- inflammatories (patient will be given a dose of Toradol) and ice as needed. She was encouraged to follow-up with orthopedics or primary care for further evaluation. History & Record Review Discussion w/independent historian: Patient and Significant other Radiography Diagnostic Testing: Clinical Impression(s) from Imaging Studies Knee X-Ray 12/02/24 10:43 IMPRESSION: Degenerative changes of the right knee but no acute abnormality. Reading Location: [id number] Discharge Plan Triage Chief Complaint: Lower Extremity Injury ED Provider: Cristian Murray Dx/Rx/DC Orders Clinical Impression: Degenerative arthritis of knee, Acute knee pain Instructions: ED Meniscal Injury Knee Poss, ED Osteoarthritis Prescriptions: No Action (DME) pen needle, diabetic [BD Ultra-Fine [place] Pen Needle] 32 gauge x 5/32 needle See Rx Instructions .Route Qty: 100 3RF Rx Instructions: daily rosuvastatin 20 mg tablet 20 mg PO DAILY omega-3 fatty acids 1,000 mg capsule 1,000 mg PO QDAY Trulicity 4.5 mg/0.5 mL pen injector 4.5 mg subcut QWEEK lisinopril 10 MG tablet 10 mg PO DAILY estradiol 2 mg tablet 2 mg PO QDAY insulin aspart U-100 100 unit/mL cartridge 5 unit subcut TID metoprolol tartrate 25 mg tablet 25 mg PO BID Levemir FlexTouch U-100 Insuln 100 unit/mL (3 mL) insulin pen 22 unit subcut QHS metformin 500 mg tablet 1,500 mg PO QDAY Primary Care Provider: Paz Diaz Referrals: Sy Ovalles MD [Med Staff - Active Staff, Orthopedics] Referral Note: for orthopedic evaluation of knee Paz Diaz DO [Primary Care Provider, Family Practice] - As Needed Activity Restrictions/Additional Instructions: Please follow-up with orthopedics of your choice or Dr. Ovalles above who is on- call for orthopedics today. You may also follow-up with your PCP if you choose. Often times rest limited bending anti-inflammatories can improve your pain. Print Language: Citizen Of [place] Disposition Disposition: Home, Self Care
--- OUTSIDE RECORDS SUMMARY | 2024-12-02 11:11 | XMS RPT_ITS | CCD ---
Author Organization [facility]ini[facility] Care Team Providers [employer] Architect Name Role Phone PROVIDER, UNKNOWN Attending Unavailable PROVIDER, UNKNOWN Admitting Unavailable PATIENT, SELF Referring Unavailable MALYS, KELL Primary Care Unavailable Dimmock LANCE CREWMEMBER/MLRS SERGEANT.[facility] Care Provide r Mey SANCHEZ, Alem Unavailable Unavailable [place] LANCE CREWMEMBER/MLRS SERGEANT.[facility] Provide r Dimmock LANCE CREWMEMBER/MLRS SERGEANT.[facility] Provide r Dimmock LANCE CREWMEMBER/MLRS SERGEANT.[facility] Provide r Mey SANCHEZ, Alem Unavailable Unavailable Malys, Kell Primary Care Provider Carolyn SANCHEZ, Alem Goldstein Unavailable Unavaila [facility], Torrie Unavailable Dimmock LANCE CREWMEMBER/MLRS SERGEANT.[facility] Provide r Paz Lugo DO Primary Care Provider [phone] Dr. Paz Lugo DO Primary Care Provider Dr. Paz Lugo DO Referring Provider Dr. Gus Juarez MD Attending Provider Gus Juarez Attending Unavailable Paz Lugo Referring Unavailable Paz Lugo Primary Care Unavailable Cristian Murray Attending Unavailable Care Physician, No Primary Primary Care Unava ilable [facility], Torrie Unavailable PAZ LUGO Attending Unavailable [facility] Primary Care Unavailable ALLI AGUIRRE Attending Unavailable SHEETS, PAZ Gomez Primary Care Unavailable SHEETS, PAZ C Primary Care Unavailable GHISLAINE BROWN Referring Unavailable SHEETS, PAZ Gomez Primary Care Unavailable SHEETS, PAZ C Primary Care Unavailable ALLI AGUIRRE Referring Unavailable SHEETS, PAZ Gomez Primary Care Unavailable VADIM MACK Referring Unavailable SHEETS, PAZ Gomez Primary Care Unavailable DIMMOCK, LATOYA Primary Care Unavailable WOODROW GUNNAR Referring Unavailable DIMMOCK, LATOYA Primary Care Unavailable DIMMOCK, LATOYA Primary Care Unavailable DIMMOCK, LATOYA Primary Care Unavailable ABIGAIL CERVANTES Attending Unavailable DIMMOCK, LATOYA Primary Care Unavailable DIMMOCK, LATOYA Primary Care Unavailable DIMMOCK, LATOYA Primary Care Unavailable SHEETS, PAZ C Primary Care Unavailable GHISLAINE BROWN Attending Unavailable Allergies Allergy Classification Reported Allergen(s) Allergy Type Date of Onset Reaction(s) Facility (20 sources) atorvastatin; 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ATORVASTATIN] Drug Allergy 5 Myalgia, Myalgias [facility] (20 sources) Penicillins; 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PENICILLINS] Propensity to adverse reactions to drug (disorder) 3 Unknown [facility] Medications Current Medications Medication Drug Class(es) Dates Sig (Normalized) Sig (Original) apixaban 5 mg oral tablet (20 sources) Factor Xa Inhibitor Start: 03-24-2022 End: 08-08-2024 take 1 tablet by mouth twice daily apixaban (ELIQUIS) 5 mg tab(s) Indications: Atrial flutter, unspecified type (HCC) Take 1 tablet by mouth two times a day. 180 tablet 1 02/06/2024 Active Comment on above: Take 1 tablet by hakan th twice daily. take 1 tablet by hakan th twice daily Take 1 tablet by hakan th two times a day. Blood-Glucose Meter,Continuous (DEXCOM G7 ADJUNCT FACULTY) misc (20 sources) Start: 03-16-2023 Blood-Glucose Meter,Continuous (DEXCOM G7 ADJUNCT FACULTY) misc Indications: Inadequately controlled diabetes mellitus (HCC) Use to check blood sugar at least four (4) times daily. 1 Each 03/16/2023 Active Start: 03-16-2023 Blood-Glucose Meter,Continuous (DEXCOM G7 ADJUNCT FACULTY) [facility] [place] Indications: Inadequately controlled diabetes mellitus (HCC) Use to check blood sugar at least four (4) times daily. 1 Each 0 03/16/2023 Active Comment on above: Use to check blood s ugar at least four (4) times daily. Blood-Glucose Sensor (DEXCOM G7 SENSOR) kali (20 sources) Start: 05-08-2024 Blood-Glucose Sensor (DEXCOM G7 SENSOR) kali Indications: Inadequately controlled diabetes mellitus (HCC) Apply new sensor every ten (10) days. 9 Each 3 05/08/2024 Active Start: 01-09-2024 End: 05-08-2024 Blood-Glucose Sensor (DEXCOM G7 SENSOR) kali Indications: Inadequately controlled diabetes mellitus (HCC) Apply new sensor every ten (10) days. 9 Each 3 01/09/2024 05/08/2024 Discontinued Start: 01-09-2024 Blood-Glucose Sensor (DEXCOM G7 SENSOR) kali Indications: Inadequately controlled diabetes mellitus (HCC) Apply new sensor every ten (10) days. 9 Each 3 01/09/2024 Active Start: 11-17-2023 End: 01-09-2024 Blood-Glucose Sensor (DEXCOM G7 SENSOR) kali Indications: Inadequately controlled diabetes mellitus (HCC) Apply new sensor every ten (10) days. 9 Each 3 11/17/2023 01/09/2024 Discontinued Start: 11-17-2023 Blood-Glucose Sensor (DEXCOM G7 SENSOR) kali Indications: Inadequately controlled diabetes mellitus (HCC) Apply new sensor every ten (10) days. 9 Each 3 11/17/2023 Active Start: 03-16-2023 End: 11-17-2023 Blood-Glucose Sensor (DEXCOM G7 SENSOR) kali Indications: Inadequately controlled diabetes mellitus (HCC) Apply new sensor every ten (10) days. 9 Each 3 03/16/2023 11/17/2023 Discontinued Start: 03-16-2023 Blood-Glucose Sensor (DEXCOM G7 SENSOR) kali Indications: Inadequately controlled diabetes mellitus (HCC) Apply new sensor every ten (10) days. 9 Each 3 03/16/2023 Active Comment on above: Apply new sensor sharad ry ten (10) days. COMPOUNDED PRESCRIPTION (20 sources) Start: 03-21-2013 COMPOUNDED PRESCRIPTION Initiate CPAP @ 13 cm of water with humidification mask (per patient preference) optional chin strap (if indicated) and lifetime supplies DX: BE 327.23 1 Device 0 03/21/2013 Suspended Start: 03-21-2013 COMPOUNDED PRE SCRIPTION Initiate CPAP @ 13 cm of water with humidification mask (per patient preference) optional chin strap (if indicated) and lifetime supplies DX: BE 327.23 1 Device 0 03/21/2013 Active Comment on above: Initiate CPAP @ 13 c m of water with humidification mask (per patient preference) optional chin strap (if indicated) and lifetime supplies DX: BE 327.23 Dulaglutide (20 sources) GLP-1 Receptor Agonist Start: 08-08-2024 Dulaglutide (Trulicity) 4.5 mg/0.5 mL pen injector Active 4.5 mg SC EVERY WEEK August 08, 2024 12:00am Start: 03-26-2024 End: 04-30-2024 inject 0.75 mg by subcutaneous injection every week dulaglutide (TRULICITY) 0.75 mg/0.5 mL pen injector Indications: Type 2 diabetes mellitus with diabetic neuropathy, with long-term current use of insulin (HCC) Inject 0.75 mg subcutaneously one time a week. 2 mL 03/26/2024 04/30/2024 Discontinued Start: 03-26-2024 End: 04-30-2024 dulaglutide (TRULICITY) 1.5 mg/0.5 mL pen injector Indications: Type 2 diabetes mellitus with diabetic neuropathy, with long-term current use of insulin (HCC) Inject 1.5 mg subcutaneously one time a week. Take this AFTER completing course of 0.75mg pens. 2 mL 3 03/26/2024 04/30/2024 Discontinued Start: 04-19-2023 End: 07-14-2023 dulaglutide (TRULICITY) 1.5 mg/0.5 mL pen injector Inject 1.5 mg subcutaneously one time a week. Take this ONLY if unable to get supply of Trulicity 4.5mg or 3mg pens. 2 mL 5 07/13/2023 07/14/2023 Discontinued Start: 03-22-2023 End: 05-24-2023 dulaglutide (TRULICITY) 0.75 mg/0.5 mL pen injector Indications: Type 2 diabetes mellitus with diabetic neuropathy, with long-term current use of insulin (HCC) Inject 0.75 mg subcutaneously one time a week for 28 days. For 4 weeks then increase to 1.5 mg 2 mL 0 03/22/2023 05/24/2023 Discontinued Start: 08-27-2021 End: 03-05-2023 Dulaglutide (Trulicity) 0.75 mg/0.5 mL pen injector Discontinued 0.75 mg SC EVERY WEEK 2 2 August 27, 2021 12:00am March 05, 2023 1:41pm Type 2 diabetes mellitus Type 2 diabetes mellitus without complications Comment on above: INJECT ONE PEN (0.75 MG) SUBCUTANEOUSLY (UNDER THE SKIN) ONCE A WEEK Inject 0.75 mg subcu taneously one time a week for 28 days. For 4 weeks then increase to 1.5 mg Inject 1.5 mg subcut aneously one time a week. Patient should start on April 19, 2023. dulaglutide (TRULICITY) 4.5 mg/0.5 mL pen injector (10 sources) Start: 025 inject 4.5 mg by subcutaneous injection every week dulaglutide (TRULICITY) 4.5 mg/0.5 mL pen injector Indications: Type 2 diabetes mellitus with hyperglycemia, without long-term current use of insulin (HCC) Inject 4.5 mg subcutaneously one time a week. 6 mL 3 06/04/2024 Active Start: 07-13-2023 End: 07-14-2023 dulaglutide (TRULICITY) 4.5 mg/0.5 mL pen injector Inject 4.5 mg subcutaneously one time a week. This REPLACES Trulicity 3mg. 2 mL 5 07/13/2023 07/14/2023 Discontinued Start: 07-13-2023 dulaglutide (T RULICITY) 4.5 mg/0.5 mL pen injector Inject 4.5 mg subcutaneously one time a week. This REPLACES Trulicity 3mg. 2 mL 5 07/13/2023 Active Insulin Detemir U-100 (Levem ir Flextouch U-100 Insuln) 100 unit/mL (3 mL) insulin pen (2 sources) Start: 03-05-2023 Insulin Detemi r U-100 (Levemir Flextouch U-100 Insuln) 100 unit/mL (3 mL) insulin pen Active 22 U SC AT BEDTIME March 05, 2023 1:00am Start: 03-05-2023 Insulin Detemi r U-100 (Levemir Flextouch U-100 Insuln) 100 unit/mL (3 mL) insulin pen Active 22 UNIT SC AT BEDTIME March 05, 2023 12:00am 24 hr metFORMIN hydrochloride 500 mg extended release oral tablet (20 sources) Biguanide Start: 07-16-2024 take 3 tablets by mouth once daily Metformin 500 mg tablet Active 1500 mg PO daily July 16, 2024 11:17am Start: 12-26-2023 End: 10-22-2024 take 3 tablets by mouth once daily at breakfast metFORMIN ER (GLUCOPHAGE XR) 500 mg 24 hr tablet Indications: Type 2 diabetes mellitus with diabetic neuropathy, with long-term current use of insulin (HCC) Take 3 tablets by mouth daily with breakfast. 270 tablet 3 10/23/2024 Active Start: 03-22-2023 End: 12-26-2023 take 2 tablets by mouth twice daily at mealtime metFORMIN ER (GLUCOPHAGE XR) 500 mg 24 hr tablet Take 2 tablets by mouth two times a day with meals. 360 tablet 1 03/22/2023 12/26/2023 Discontinued Start: 03-16-2023 End: 03-22-2023 take 1 tablet by mouth three times daily at mealtime metFORMIN (GLUCOPHAGE) 500 mg tablet Indications: Type 2 diabetes mellitus with diabetic neuropathy, with long-term current use of insulin (HCC) Take 1 tablet by mouth three times a day with meals. 270 tablet 3 03/16/2023 03/22/2023 Discontinued Start: 11-01-2022 End: 07-16-2024 take 1 tablet by mouth twice daily Metformin 500 mg tablet Discontinued 500 mg PO TWICE A DAY March 05, 2023 1:00am July 16, 2024 11:19am Start: 07-14-2022 take 1 tablet by hakan th twice daily at mealtime metFORMIN (GLUCOPHAGE) 500 mg tablet Indications: Type 2 diabetes mellitus with diabetic neuropathy, with long-term current use of insulin (HCC) Take 1 tablet by mouth twice daily with meals. 180 tablet 0 07/14/2022 Active Start: 03-24-2022 End: 11-02-2022 take 1 tablet by mouth twice daily metFORMIN (GLUCOPHAGE) 1,000 mg tablet Indications: Type 2 diabetes mellitus with diabetic neuropathy, with long-term current use of insulin (HCC) Take 1 tablet by mouth twice daily. 180 tablet 1 05/06/2022 07/14/2022 Discontinued Start: 08-27-2021 End: 03-05-2023 take 2 tablets by mouth twice daily Metformin 500 mg tablet Discontinued 1000 mg PO TWICE A DAY 360 1 August 27, 2021 9:05am March 05, 2023 1:48pm Start: 08-27-2021 End: 03-05-2023 take 1000 mg by mouth twice daily Metformin Discontinued 1000 MG PO TWICE A DAY 360 August 27, 2021 8:05am March 05, 2023 12:48pm Start: 06-16-2021 End: 03-24-2022 take 1 tablet by mouth twice daily Metformin 500 mg tablet Discontinued 500 mg PO TWICE A DAY 60 0 June 16, 2021 12:00am August 27, 2021 9:05am Comment on above: Take 500 mg by mouth twice daily. Take 1 tablet by hakan twice daily. Take 1 tablet by hakan th twice daily with meals. Take 1 tablet by hakan th three times a day with meals. Take [address] [facility] two times a day with meals. Prague-3 Fatty Acids 1,000 mg capsule (1 source) Start: 07-16-2024 take 1 capsule by mouth once daily Prague-3 Fatty Acids 1,000 mg capsule Active 1000 mg PO daily July 16, 2024 12:00am [id number] sh oil (OMEGA-3 FISH OIL) 300-1,000 mg cap (20 sources) Start: 01-29-2022 [id number] janiya oil (OMEGA-3 FISH OIL) 300-1,000 mg cap Take 1 capsule by mouth once daily. 01/29/2022 Active Start: 01-29-2022 [id number] pa-fish oil (OMEGA-3 FISH OIL) 300-1,000 mg cap Take 1 capsule by mouth once daily. 0 01/29/2022 Suspended Start: 01-29-2022 [id number] pa-fish oil (OMEGA-3 FISH OIL) 300-1,000 mg cap Take 1 capsule by mouth once daily. 0 01/29/2022 Active Comment on above: Take 1 capsule by [facility] once daily. phenylephrine hydrochloride 25 mg/ml ophthalmic solution (3 sources) alpha-1 Adrenergic Agonist Start: 12-19-2023 End: 12-19-2023 PHENYLephrine 2.5 % 1 Drop (AK-DILATE, MEI-SYNEPHRINE) Start: 12-19-2023 End: 12-19-2023 1 Drop, BOTH EYES, DIRECT ED, Starting on Tue12/19/23 at 1000, Until Tue12/19/23 at 2159, Administer for dilation PROTECT FROM LIGHT Start: 12-14-2022 End: 12-14-2022 PHENYLephrine 2.5 % 1 Drop ( AK-DILATE, MEI-SYNEPHRINE) proparacaine hydrochloride 5 mg/ml ophthalmic solution (3 sources) Local Anesthetic Start: 12-19-2023 End: 12-19-2023 proparacaine 0.5 % 1 Drop (ALCAINE) Start: 12-19-2023 End: 12-19-2023 1 Drop, BOTH EYES, DIRECT ED, Starting on Tue12/19/23 at 1000, Until Tue12/19/23 at 2159, Administer for pneumo tonometry, tonopen tonometry, or pachymetry. In the event of a proparacaine shortage, administer tetracaine 0.5% ophthalmic drops 1 drop in the left eye as directed for pneumo tonometry, tonopen tonometry, or pachymetry Start: 12-14-2022 End: 12-14-2022 proparacaine 0.5 % 1 Drop (A LCAINE) propylene glycol 6 mg/ml ophthalmic solution (20 sources) propylene glycoL (SYSTANE BALANCE) 0.6 % drop Use 1 Drop in both eyes as needed. Active rosuvastatin calcium 20 mg oral tablet (20 sources) HMG-CoA Reductase Inhibitor Start: take 1 tablet by mouth once daily Rosuvastatin 20 mg tablet Active 20 mg PO DAILY July 16, 2024 12:00am Start: 07-27-2023 End: 10-22-2024 take 1 tablet by mouth once daily rosuvastatin (CRESTOR) 20 mg tablet Indications: Mixed hyperlipidemia Take 1 tablet by mouth once daily. 90 tablet 11/10/2023 10/22/2024 Discontinued Start: 09-07-2021 End: 03-05-2023 take 1 tablet by mouth once daily Rosuvastatin 5 mg tablet Discontinued 5 mg PO DAILY November 26, 2021 12:00am March 05, 2023 1:43pm Comment on above: Take 1 tablet by hakan th daily at bedtime. semaglutide (OZEMPIC) 0.25 mg or 0.5 mg (2 mg/3 mL) pen (6 sources) Start: End: inject 0.5 mg by subcutaneous injection every week semaglutide (OZEMPIC) 0.25 mg or 0.5 mg (2 mg/3 mL) pen Indications: Type 2 diabetes mellitus with diabetic neuropathy, with long-term current use of insulin (HCC) Inject 0.5 mg subcutaneously one time a week. 3 mL 2 05/18/2024 08/10/2024 Active 125 ml sodium chloride 9 mg/ml prefilled syringe (20 sources) Start: End: sodium chloride 0.9 % (flush) 10 mL (BD POSIFLUSH) tropicamide 10 mg/ml ophthalmic solution (3 sources) Anticholinergic Start: End: tropicamide 1 % 1 Drop (MYDRIACYL) Start: 12-19-2023 End: 12-19-2023 1 Drop, BOTH EYES, DIRECT ED, Starting on Tue12/19/23 at 1000, Until Tue12/19/23 at 2159, Administer for dilation Start: 12-14-2022 End: 12-14-2022 tropicamide 1 % 1 Drop (MYDR IACYL) Completed/Discontinued Medications Medication Drug Class(es) Dates Sig (Normalized) Sig (Original) acyclovir 400 mg oral tablet (3 sources) Herpesvirus Nucleoside Analog DNA Polymerase Inhibitor, Herpes Simplex Virus Nucleoside Analog DNA Polymerase Inhibitor, Herpes Zoster Virus Nucleoside Analog DNA Polymerase Inhibitor Start: 02-23-2024 End: 08-08-2024 take 1 tablet by mouth five times daily acyclovir (ZOVIRAX) 400 mg tablet take 1 tablet by mouth 5 (five) times daily 02/23/2024 03/26/2024 Discontinued (Course of therapy completed) aspirin 81 mg delayed release oral tablet (20 sources) Platelet Aggregation Inhibitor, Nonsteroidal Anti-inflammatory Drug Start: 10-16-2019 End: 03-25-2022 take 1 tablet by mouth once daily aspirin, enteric coated (ECOTRIN LOW STRENGTH) 81 mg EC tablet Take 1 tablet by mouth once daily. 0 10/16/2019 03/25/2022 Discontinued Comment on above: Take 1 tablet by hakan th once daily. dulaglutide (TRULICITY) 3 mg/0.5 mL pen injector (20 sources) Start: 04-30-2024 End: 05-18-2024 inject 3 mg by subcutaneous injection every week dulaglutide (TRULICITY) 3 mg/0.5 mL pen injector Indications: Type 2 diabetes mellitus with diabetic neuropathy, with long-term current use of insulin (HCC) Inject 3 mg subcutaneously one time a week. 2 mL 5 04/30/2024 05/18/2024 Discontinued Start: 04-30-2024 inject 3 mg by subcu taneous injection every week dulaglutide (TRULICITY) 3 mg/0.5 mL pen injector Indications: Type 2 diabetes mellitus with diabetic neuropathy, with long-term current use of insulin (HCC) Inject 3 mg subcutaneously one time a week. 2 mL 5 04/30/2024 Active Start: 11-10-2023 End: 01-30-2024 inject 3 mg by subcutaneous injection every week dulaglutide (TRULICITY) 3 mg/0.5 mL pen injector Indications: Type 2 diabetes mellitus with diabetic neuropathy, with long-term current use of insulin (HCC) Inject 3 mg subcutaneously one time a week. 2 mL 2 11/10/2023 01/30/2024 Discontinued Start: 11-10-2023 inject 3 mg by subcu taneous injection every week dulaglutide (TRULICITY) 3 mg/0.5 mL pen injector Indications: Type 2 diabetes mellitus with diabetic neuropathy, with long-term current use of insulin (HCC) Inject 3 mg subcutaneously one time a week. 2 mL 2 11/10/2023 Active Start: 10-11-2023 End: 11-10-2023 inject 3 mg by subcutaneous injection every week dulaglutide (TRULICITY) 3 mg/0.5 mL pen injector Indications: Type 2 diabetes mellitus with diabetic neuropathy, with long-term current use of insulin (HCC) Inject 3 mg subcutaneously one time a week. 2 mL 10/11/2023 11/10/2023 Discontinued Start: 05-24-2023 End: 10-10-2023 inject 3 mg by subcutaneous injection every week dulaglutide (TRULICITY) 3 mg/0.5 mL pen injector Indications: Type 2 diabetes mellitus with diabetic neuropathy, with long-term current use of insulin (HCC) Inject 3 mg subcutaneously one time a week. 2 mL 2 05/24/2023 10/10/2023 Discontinued Start: 05-24-2023 inject 3 mg by subcu taneous injection every week dulaglutide (TRULICITY) 3 mg/0.5 mL pen injector Indications: Type 2 diabetes mellitus with diabetic neuropathy, with long-term current use of insulin (HCC) Inject 3 mg subcutaneously one time a week. 2 mL 2 05/24/2023 Active Comment on above: Inject 3 mg subcutan eously one time a week. estradiol 2 mg oral tablet (20 sources) Estrogen Start: End: take 1 tablet by mouth once daily estradiol (ESTRACE) 2 mg tablet Indications: Gender dysphoria , Encounter for long-term (current) use of high-risk medication Take 1 tablet by mouth once daily. 30 tablet 10/01/2024 10/22/2024 Discontinued Start: 04-13-2021 End: 09-17-2023 take 1 tablet by mouth once daily estradiol (ESTRACE) 2 mg tablet Indications: Gender dysphoria , Encounter for long-term (current) use of high-risk medication Take 1 tablet by mouth once daily. 90 tablet 1 03/23/2023 09/17/2023 Discontinued Start: 07-29-2017 End: 07-16-2024 take 1 tablet by mouth twice daily Estradiol 2 MG tablet Discontinued 2 mg PO TWICE A DAY April 08, 2020 1:00am July 16, 2024 11:19am Comment on above: Take 1 tablet by hakan th every evening AND 0.5 tablets every evening. Take 1 tablet by hakan th daily at bedtime. Take 1 AND 0.5 table ts by mouth every evening. Take 1 tablet by hakan th once daily. finasteride 5 mg oral tablet (20 sources) 5-alpha Reductase Inhibitor Start: End: take 1 tablet by mouth once daily Finasteride 5 MG tablet Discontinued 5 mg PO DAILY April 08, 2020 1:00am August 08, 2024 1:31pm Comment on above: Take 1 tablet by hakan th once daily. insulin aspart, human (4 sources) Insulin Analog Start: End: INSULIN ASPART U-100 SUBCUTANEOUS Insulin Aspart U-100 Active 5 UNIT SC THREE TIMES A DAY March 05, 2023 12:00am 03/05/2023 12/26/2023 Discontinued (Course of therapy completed) Start: 03-05-2023 INSULIN ASPART U-100 SUBCUTANEOUS Insulin Aspart U-100 Active 5 UNIT SC THREE TIMES A DAY March 05, 2023 12:00am 03/05/2023 Active Start: 03-05-2023 Insulin Aspart U-100 100 unit/mL cartridge Active 5 U SC THREE TIMES A DAY March 05, 2023 1:00am 3 ml insulin detemir 100 unt/ml pen injector (20 sources) Insulin Analog Start: 03-05-2022 End: 03-16-2023 insulin detemir U-100 (LEVEMIR FLEXTOUCH U-100 INSULIN) 100 unit/mL (3 mL) injection pen Indications: Type 2 diabetes mellitus with hyperglycemia, without long-term current use of insulin (HCC) Inject 22 Units subcutaneously daily at bedtime. 5 Each 05/11/2022 03/16/2023 Discontinued Start: 09-01-2021 End: 03-05-2022 insulin detemir U-100 (LEVEM IR FLEXTOUCH U-100 INSULIN) 100 unit/mL (3 mL) injection pen Inject 20 Units subcutaneously daily at bedtime. As directed by endo 0 09/01/2021 03/05/2022 Discontinued Start: 08-27-2021 End: 03-05-2023 Insulin Detemir U-100 (Levem ir Flextouch U-100 Insuln) 100 unit/mL (3 mL) insulin pen Discontinued 40 U SC AT BEDTIME 36 August 27, 2021 12:00am March 05, 2023 1:48pm Type 2 diabetes mellitus Type 2 diabetes mellitus without complications Comment on above: Inject 20 Units subc utaneously daily at bedtime. As directed by endo Inject 22 Units subc utaneously daily at bedtime. 3 ml insulin glargine 100 unt/ml pen injector (20 sources) Insulin Analog Start: 04-30-2024 End: 10-22-2024 insulin glargine (BASAGLAR KWIKPEN U-100 INSULIN) 100 unit/mL (3 mL) Inject 22 Units subcutaneously daily at bedtime. 30 mL 3 08/09/2024 10/22/2024 Discontinued Start: 03-26-2024 End: 04-30-2024 insulin glargine (BASAGLAR K WIKPEN U-100 INSULIN) 100 unit/mL (3 mL) Inject 25 Units subcutaneously daily at bedtime. 30 mL 3 03/26/2024 04/30/2024 Discontinued (Adjust Sig - Block E-Cancel) Start: 12-26-2023 End: 03-26-2024 insulin glargine (BASAGLAR K WIKPEN U-100 INSULIN) 100 unit/mL (3 mL) Inject 20 Units subcutaneously daily at bedtime. 30 mL 3 12/26/2023 03/26/2024 Discontinued (Adjust Sig - Block E-Cancel) Start: 12-12-2023 End: 12-26-2023 insulin glargine (BASAGLAR K WIKPEN U-100 INSULIN) 100 unit/mL (3 mL) Inject 22 Units subcutaneously daily at bedtime. This REPLACES Levemir. 30 mL 3 12/12/2023 12/26/2023 Discontinued (Adjust Sig - Block E-Cancel) Start: 09-19-2023 End: 12-12-2023 insulin glargine (BASAGLAR K WIKPEN U-100 INSULIN) 100 unit/mL (3 mL) Inject 28 Units subcutaneously daily at bedtime. This REPLACES Levemir. 30 mL 3 09/19/2023 12/12/2023 Discontinued (Adjust Sig - Block E-Cancel) Start: 03-16-2023 End: 09-17-2023 insulin glargine (BASAGLAR K WIKPEN U-100 INSULIN) 100 unit/mL (3 mL) Inject 28 Units subcutaneously daily at bedtime. This REPLACES Levemir. 30 mL 3 04/15/2023 09/17/2023 Discontinued Comment on above: Inject 28 Units subc utaneously daily at bedtime. This REPLACES Levemir. 3 ml insulin lispro 100 unt/ml pen injector (20 sources) Insulin Analog Start: 03-24-2022 End: 12-26-2023 insulin lispro (ADMELOG SOLOSTAR U-100 INSULIN) 100 unit/mL Indications: Type 2 diabetes mellitus with diabetic neuropathy, with long-term current use of insulin (HCC) Inject 5 units plus sliding scale up to 3 times daily before meals. If pre-meal BG 150-199, take extra 1 unit; BG 200-249 = 2 units; BG 250-299 = 3 units; BG 300-349 = 4 units; BG 350-399 = 5 units, BG 400-449 = 6 units, BG 450 and greater = extra 7 units. Max dose 36 units/day. ON HOLD as of 12.11.24. 45 mL 3 12/12/2023 12/26/2023 Discontinued (Course of therapy completed) Comment on above: Inject 4 Units subcu taneously three times daily before meals. Inject 4 Units subcu taneously three times a day before meals. Inject 5 units plus sliding scale up to 3 times daily before meals. If pre-meal BG 150-199, take extra 1 unit; BG 200-249 = 2 units; BG 250-299 = 3 units; BG 300-349 = 4 units; BG 350-399 = 5 units, BG 400-449 = 6 units, BG 450 and greater = extra 7 units. Max dose 36 units/day. isopropyl alcohol 0.7 ml/ml medicated pad (20 sources) Start: 11-01-2022 End: 03-01-2024 alcohol swabs Indications: Type 2 diabetes mellitus with hyperglycemia, without long-term current use of insulin (HCC) Use with blood glucose test once daily. Insulin Dep? No 200 Each 5 11/01/2022 03/01/2024 Discontinued Start: 06-19-2021 End: 09-15-2022 alcohol swabs Indications: T ype 2 diabetes mellitus with hyperglycemia, without long-term current use of insulin (HCC) Use with blood glucose test once daily. Insulin Dep? No 100 Each 5 06/19/2021 05/06/2022 Discontinued Comment on above: Use with blood gluco se test once daily. Insulin Dep? No lisinopril 10 mg oral tablet (20 sources) Angiotensin Converting Enzyme Inhibitor Start: 1 End: 6 take 1 tablet by mouth once daily lisinopril (ZESTRIL) 10 mg tablet Indications: Primary hypertension Take 1 tablet by mouth once daily. 90 tablet 3 02/06/2024 10/22/2024 Discontinued Comment on above: Take 1 tablet by hakan once daily. meloxicam 15 mg oral tablet (3 sources) Nonsteroidal Anti-inflammatory Drug Start: 2 End: 4 take 1 tablet by mouth once daily at mealtime Meloxicam 15 mg tablet Discontinued 15 mg PO DAILY 30 November 26, 2021 12:00am March 05, 2023 1:43pm Right knee pain Pain in right knee Pain Take once daily with food, do not take in conjunction with other NSAIDS. metoprolol tartrate 25 mg oral tablet (20 sources) beta-Adrenergic Kathleen Start: 3 End: 6 take 1 tablet by mouth twice daily metoprolol tartrate, short acting, (LOPRESSOR) 25 mg tablet Indications: Atrial flutter, unspecified type (HCC) Take 1 tablet by mouth two times a day. 180 tablet 3 02/06/2024 10/22/2024 Discontinued Start: 03-24-2022 End: 10-12-2022 take 1 tablet by mouth twice daily metoprolol tartrate, short acting, (LOPRESSOR) 25 mg tablet Indications: Atrial flutter, unspecified type (HCC) Take 1 tablet by mouth twice daily. 60 tablet 2 07/14/2022 10/12/2022 Active Comment on above: Take 1 tablet by hakan twice daily. Take 1 tablet by hakan two times a day. Milk Thistle (20 sources) Start: 08-27-2021 End: 03-05-2023 take 1 tablet by mouth twice daily Milk Thistle 175 mg tablet Discontinued 175 mg PO TWICE A DAY August 27, 2021 12:00am March 05, 2023 1:43pm give with meal/snack Start: 08-27-2021 End: 03-05-2023 take 175 mg by mouth twice daily Milk Thistle Discontinued 175 MG PO TWICE A DAY August 26, 2021 11:00pm March 05, 2023 12:43pm give with meal/snack Start: 08-27-2021 take 175 mg by mouth twice daily Milk Thistle Active 175 MG PO TWICE A DAY August 27, 2021 12:00am give with meal/snack End: 03-05-2022 take 1 tablet by mouth once daily Milk Thistle 175 mg tab Take 1 tablet by mouth once daily. 0 03/05/2022 Discontinued take 1 tablet by hakan th once daily Milk Thistle 175 mg tab Take 1 tablet by mouth once daily. 0 Active Comment on above: Take 1 tablet by hakan th once daily. perflutren lipid microspheres 1.3 mL in NaCl (PF) 0.9% 10 mL injection (DEFINITY) (20 sources) Start: 03-24-2022 End: 01-19-2023 perflutren lipid microspheres 1.3 mL in NaCl (PF) 0.9% 10 mL injection (DEFINITY) Start: 03-24-2022 End: 06-23-2023 perflutren lipid microsphere s 1.3 mL in NaCl (PF) 0.9% 10 mL injection (DEFINITY) predniSONE 20 mg oral tablet (3 sources) Start: 02-23-2024 End: 07-16-2024 take 3 tablets by mouth once predniSONE (DELTASONE) 20 mg tablet Take 3 tablets by mouth every afternoon. 02/23/2024 03/26/2024 Discontinued (Course of therapy completed) TRULICITY 3 mg/0.5 mL pen injector (5 sources) Start: 01-30-2024 End: 03-01-2024 inject 3 mg by subcutaneous injection every week TRULICITY 3 mg/0.5 mL pen injector Indications: Type 2 diabetes mellitus with diabetic neuropathy, with long-term current use of insulin (HCC) Inject 3 mg subcutaneously one time a week. 2 mL 2 01/30/2024 03/01/2024 Discontinued (Other) Start: 01-30-2024 inject 3 mg by subcu taneous injection every week TRULICITY 3 mg/0.5 mL pen injector Indications: Type 2 diabetes mellitus with diabetic neuropathy, with long-term current use of insulin (HCC) Inject 3 mg subcutaneously one time a week. 2 mL 2 01/30/2024 Active Problems Active Problems Problem Classification Problem Date Documented Da te Episodic/Chronic Blindness and vision defects (6 sources) Bilateral hyperopia of eyes; 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Hypermetropia, bilateral] 11-07-2023 Episodic Cardiac dysrhythmias (20 sources) Atrial flutter; 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Unspecified atrial flutter] Onset: 03-24-2022 Chronic Diabetes mellitus with complications (20 sources) Hyperglycemia due to type 2 diabetes mellitus; 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Type 2 diabetes mellitus with hyperglycemia] Onset: 03-24-2022 06-24-2021 Chronic Diabetes mellitus without complication (20 sources) Type 2 diabetes mellitus; 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Type 2 diabetes mellitus without complications] Onset: 05-13-2021 05-13-2021 Chronic Disorders of lipid metabolism (20 sources) Mixed hyperlipidemia; 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Mixed hyperlipidemia] Onset: 03-08-2014 06-17-2017 Chronic Essential hypertension (20 sources) Hypertensive disorder; 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Essential (primary) hypertension] Onset: 08-08-2024 08-23-2018 Chronic Genitourinary symptoms and ill-defined conditions (2 sources) Nocturia; 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Nocturia] Episodic Immunizations and screening for infectious disease (2 sources) Anti-nuclear factor positive; 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Other specified abnormal immunological findings in serum] Episodic Joint disorders and dislocations; trauma-related (7 sources) Chondromalacia of right patella; 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Chondromalacia patellae, right knee] Onset: 09-07-2024 11-26-2021 Chronic Miscellaneous mental health disorders (20 sources) 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; 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Wxyb-zm-[id number] transsexual person on hormone therapy] Onset: 06-06-2013 Resolved: 11-12-2015 08-23-2018 Chronic Other aftercare (20 sources) Patient encounter status; 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Other assistant terminal manager (current) drug therapy] Onset: 09-05-2014 Episodic Other aftercare (10 sources) Long-term current use of drug therapy; 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Other assistant terminal manager (current) drug therapy] Onset: 09-05-2014 09-17-2023 Episodic Other aftercare (1 source) Other assistant terminal manager (current) drug therapy; 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Encounter for long-term (current) use of high-risk medication] Onset: 11-05-2024 Episodic Other connective tissue disease (1 source) Cramp in lower limb; 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Cramp and spasm] Episodic Other connective tissue disease (4 sources) Iliotibial band friction syndrome; 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Iliotibial band syndrome, left leg] 04-09-2020 Episodic Other connective tissue disease (1 source) Facial weakness; 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Facial weakness] Onset: 06-28-2024 Episodic Other ear and sense organ disorders (1 source) Impacted cerumen of bilateral ears; 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Impacted cerumen, bilateral] 08-27-2024 Episodic Other gastrointestinal disorders (3 sources) Diarrhea; 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Diarrhea, unspecified] 05-14-2022 Episodic Other liver diseases (20 sources) Steatosis of liver; 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Fatty (change of) liver, not elsewhere classified] Onset: 05-07-2016 06-17-2017 Chronic Other liver diseases (2 sources) Hepatic fibrosis; 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Hepatic fibrosis] Chronic Other liver diseases (9 sources) Elevated liver enzymes level; 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Abnormal levels of other serum enzymes] Episodic Other liver diseases (3 sources) Enzyme level - finding; 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Abnormal levels of other serum enzymes] 05-14-2022 Episodic Other nervous system disorders (1 source) Disorder of left sciatic nerve 09-07-2024 Chronic Other nervous system disorders (2 sources) Flores's palsy; 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] 03-10-2024 Episodic Other non-traumatic joint disorders (3 sources) Pain in right knee; 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Right knee pain] 11-26-2021 Episodic Other non-traumatic joint disorders (3 sources) Hip pain; 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Pain in left hip] 09-07-2024 Episodic Other non-traumatic joint disorders (1 source) Pain in left hip; 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Left hip pain] Onset: 08-27-2024 Episodic Other nutritional; endocrine; and metabolic disorders (2 sources) Severe obesity; 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Morbid (severe) obesity due to excess calories] Chronic Other nutritional; endocrine; and metabolic disorders (20 sources) Obese class II; 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Obesity, unspecified] Onset: 03-24-2022 Chronic Other nutritional; endocrine; and metabolic disorders (5 sources) Body mass index 30+ - obesity; 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Obesity, unspecified] 08-27-2021 Chronic Other screening for suspected conditions (not mental disorders or infectious disease) (20 sources) Other specified abnormal findings of blood chemistry; 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Other abnormal blood chemistry] Onset: 09-05-2014 Resolved: 05-07-2016 Episodic Residual codes; unclassified (20 sources) Sleep apnea; 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Sleep apnea, unspecified] Onset: 03-21-2013 02-02-2021 Chronic Residual codes; unclassified (4 sources) Obstructive sleep apnea syndrome; 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Obstructive sleep apnea (adult) (pediatric)] 03-22-2023 Chronic Residual codes; unclassified (1 source) Other specified health status; 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Other drug allergy] Episodic Residual codes; unclassified (1 source) Finding of body mass index; 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Body mass index (BMI) pediatric, 5th percentile to less than 85th percentile for age] 05-18-2024 Episodic Spondylosis; intervertebral disc disorders; other back problems (2 sources) Disorder of left sciatic nerve; 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Sciatica, left side] Onset: 08-27-2024 08-27-2024 Episodic Unclassified (1 source) Drug therapy finding 07-16-2024 Comment on above: Transgender Unclassified (1 source) New Patient Onset: 03-01-2024 Past or Other Problems Problem Classification Problem Date Documented Da te Episodic/Chronic Diabetes mellitus without complication (20 sources) Prediabetes; 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Prediabetes] Onset: 07-17-2019 Resolved: 05-13-2021 Episodic Other aftercare (2 sources) alf (current) use of insulin; 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Type 2 diabetes mellitus without complication, with long-term current use of insulin (HCC)] Onset: 03-24-2022 Episodic Other congenital anomalies (20 sources) Gonadal dysgenesis; 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44, XX true hermaphrodite] Onset: 08-12-2017 Resolved: 09-07-2024 08-12-2017 Chronic Unclassified (20 sources) 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; 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Ssfc-[id number] transsexual person on hormone therapy] Onset: 08-23-2018 Resolved: 09-01-2021 09-01-2021 Unclassified (1 source) Patient encounter status 09-07-2024 Results Test Name Value Interpretation Reference Range Facility [facility]2 [Mass/Vol] 84 pg/mL Normal [facility] Comment on above: Order Comment: Speci men Type: BLOOD SPECIMENOrdering Facility: [facility] Address: [address] [place] [id number] Performed By: #### 2 986-8, 2243-4 ####[facility] LABCLIA [id number] [address] [address] [place] Testost SerPl-mCncon 29- 025 Testosterone [Mass/Vol] 94 ng/dL [facility] Comment on above: Order Comment: Speci men Type: BLOOD SPECIMENOrdering Facility: [facility] [address] [place] [id number] Performed By: #### 2 986-8, 2243-4 ####[facility] LABCLIA [id number] [place] [id number] [place] DBT Breast - bilateral scree allan 08-29-2024 IMPRESSION: There is no mammographic evidence of malignancy in either breast. Routine screening mammogram is recommended. Annual mammogram will be due in 1 year. BI-RADS Category 1: Negative RISK: Based on the Tyrer-Cuzick (TC) risk assessment model, this patient has a 9.9% lifetime risk of developing breast cancer, meaning they are at average risk for developing breast cancer. However, this is only an estimate based on available history provided on the patient's questionnaire. We encourage all patients to talk with their providers about these results, further recommendations for managing breast health, and appropriate supplemental screening options if the patient has dense breast tissue. Interpreting Radiologist: Federica Tabares M.D. Electronically signed on: 08/29/2024 Helicopter Pilot Instructor: MELISSA Transcribe Date/Time: Aug 27 2024 2:24P Dictated by: FEDERICA TABARES MD This examination was interpreted and the report reviewed and electronically signed by: FEDERICA TABARES MD on Aug 29 2024 3:13PM [facility] DIVISION OF RADIOLOGY * * *Final Report* * * DATE OF EXAM: Aug 27 2024 2:48PM W 0582 - [facility] SCREENING W JESSY / PROCEDURE REASON: Breast cancer screening by mammogram * * * * Physician Interpretation * * * * RESULT: [facility] [address] [place] [address] #[id number] - [facility] SCREENING W JESSY HISTORY: 54 year-old patient presents for screening. Patient is asymptomatic in both breasts. Patient states no personal history of breast cancer. COMPARISON STUDIES: The present examination has been compared to prior imaging studies dated 07/10/2020 (mammogram) and 12/09/2022 (mammogram). MAMMOGRAM TECHNIQUE: The study was acquired using full field digital technology and interpreted from soft copy. Digital Breast Tomosynthesis (DBT) images were obtained and used to assist in the interpretation of this examination. MAMMOGRAM FINDINGS: The breasts are heterogeneously dense, which may obscure small masses. No suspicious masses, calcifications or other abnormalities are seen in either breast. There are no significant interval changes. DIVISION OF RADIOLOGY Provider, [facility] Fitzwilliam - 08/29/2024 * * *Final Report* * * DATE OF EXAM: Aug 27 2024 2:48PM [facility]82 - [facility] SCREENING W JESSY / PROCEDURE REASON: Breast cancer screening by mammogram * * * * Physician Interpretation * * * * RESULT: [facility] [address] [place] [place] [id number] #[id number] - [facility] SCREENING W JESSY HISTORY: 54 year-old patient presents for screening. Patient is asymptomatic in both breasts. Patient states no personal history of breast cancer. COMPARISON STUDIES: The present examination has been compared to prior imaging studies dated 07/10/2020 (mammogram) and 12/09/2022 (mammogram). MAMMOGRAM TECHNIQUE: The study was acquired using full field digital technology and interpreted from soft copy. Digital Breast Tomosynthesis (DBT) images were obtained and used to assist in the interpretation of this examination. MAMMOGRAM FINDINGS: The breasts are heterogeneously dense, which may obscure small masses. No suspicious masses, calcifications or other abnormalities are seen in either breast. There are no significant interval changes. IMPRESSION IMPRESSION: There is no mammographic evidence of malignancy in either breast. Routine screening mammogram is recommended. Annual mammogram will be due in 1 year. BI-RADS Category 1: Negative RISK: Based on the Tyrer-Cuzick (TC) risk assessment model, this patient has a 9.9% lifetime risk of developing breast cancer, meaning they are at average risk for developing breast cancer. However, this is only an estimate based on available history provided on the patient's questionnaire. We encourage all patients to talk with their providers about these results, further recommendations for managing breast health, and appropriate supplemental screening options if the patient has dense breast tissue. Interpreting Radiologist: Federica Tabares M.D. Electronically signed on: 08/29/2024 Helicopter Pilot Instructor: MELISSA Transcribe Date/Time: Aug 27 2024 2:24P Dictated by: FEDERICA TABARES MD This examination was interpreted and the report reviewed and electronically signed by: FEDERICA TABARES MD on Aug 29 2024 3:13PM EST [facility] DBT Breast - bilateral scree ningOrdered By: Ccdee Provider on 08-29-2024 [facility] ALBUMIN/CREATININE RATIO, UR INEon 08-27-2024 Albumin Unsp time DL <= 20 mg/L (U) [Mass/Time] 12.4 mg/L [facility] Albumin/Creatinine (U) [Mass ratio] 6 mg/g NINF - 30 mg/g [facility] Comment on above: Adult Male and Femal e Nephrotic Criteria: <30 mg/g is considered normal to mildly increased 30-300 mg/g is considered moderately increased >300 mg/g is considered severely increased KDIGO. (2013). KDIGO 2012 Clinical Practice Guideline for the Evaluation and Management of Chronic Kidney Disease. Official Journal of the International Society of Nephrology, 3(1), 1-150. Creatinine (U) [Mass/Vol] 204.9 mg/dL 20.0 - 300.0 mg/dL [facility] Albumin Unsp time DL <= 20 mg/L (U) [Mass/Time] 12.4 mg/L Normal [facility] Comment on above: Order Comment: Speci men Type: URINE SPECIMEN [facility] Address: [address] [place] [address] Performed By: #### U ACR #### [facility][1] LABORATORY CLIA [id number] [address] Albumin/Creatinine (U) [Mass ratio] 6 mg/g Normal <30 [facility] Comment on above: Order Comment: Joel men Type: URINE SPECIMEN [facility] Address: [address] [place] [address] Result Comment: Adul t Male and Female Nephrotic Criteria: <30 mg/g is considered normal to mildly increased 30-300 mg/g is considered moderately increased >300 mg/g is considered severely increased KDIGO. (2013). KDIGO 2012 Clinical Practice Guideline for the Evaluation and Management of Chronic Kidney Disease. Official Journal of the International Society of Nephrology, 3(1), 1-150. Performed By: #### U ACR #### [facility][1] LAB[facility] CLIA [id number] [address] Creatinine (U) [Mass/Vol] 204.9 mg/dL Normal 20.0-300.0 [facility] Comment on above: Order Comment: Joel men Type: URINE SPECIMEN [facility] Address: [address] [place] [address] Performed By: #### U ACR #### [facility][1] LAB[facility] CLIA [id number] [address] OF [facility] CNOVon 08-27-2024 CNOV Office Visit (AGFAMPLE) ISAI GRAHAM ([id number]) 1970 F T Date Time Provider Department 08/27/24 9:20 AM ALLI AGUIRRE During your visit today, we recorded the following information about you: Temperature Pulse Blood pressure Weight 98 degrees 69/minute 118/70 113.4 kg Height 1.702 m Alli Aguirre, ZELDA.VOCAL PERFORMER 09/07/2024 11:57 PM Signed Subjective The patient consented to the use of [employer] software for draft documentation of the visit consistent with [facility]?s Notice of Privacy Practices. HPI Isai Graham is a 54-year-old female with a history of T2DM, HTN, HLD, and fatty liver disease, presenting for a diabetes follow-up visit. She also reports right hip pain. She is a new patient. Iasi reports a 3-4 month history of constant, achy pain in the right hip, localized to the posterior aspect near the gluteal region. 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 She denies any known trauma or falls and suspects the pain may be related to her sleeping position or work activities. She has not had this issue evaluated by a clinician yet. She has been taking Aleve since yesterday, which has provided some relief, after finding Motrin ineffective. She denies any known back problems but has a history of knee issues, for which she wears knee braces during work. She has not tried a back brace yet. Isai was diagnosed with T2DM 4-5 years ago and has a family history of diabetes in her father. She is currently on Trulicity 4.5 mg once a week, which she tolerates well after initial side effects of lightheadedness. She also takes insulin glargine 22 units at bedtime and metformin 1500 mg daily with breakfast. She reports an A1c of 6.5 today, down from 7.1 in May and 12.5 a year ago. She is actively trying to lose weight by staying active and following dietary recommendations, including consuming carbohydrates. She reports eating twice a day but is considering increasing to three meals a day. Isai has a history of fatty liver disease and was previously scheduled for a liver biopsy, which she did not complete due to fear. She has been on estrogen therapy for 10 years. She is also on lisinopril 10 mg daily, metoprolol tartrate 25 mg BID, and rosuvastatin 20 mg daily. She denies any current liver issues but has a history of elevated liver enzymes and an enlarged liver on ultrasound. Her last set of liver enzymes were normal in May. She denies any issues with her feet and has not had any surgeries. She is due for a mammogram and has not had one in the last couple of years. She denies any lumps or bumps in her breasts and checks them regularly. She also denies any bladder issues and has no family history of prostate cancer. She is a former smoker, having quit 11 years ago, and denies any current use of tobacco, vaping, or marijuana. Isai is transgender and receives gender-affirming care from Dr. Guthrie at the [facility] in [place]. She has upcoming appointments for gender-affirming care and with a manager nc in February. She is considering establishing care with the current clinician for diabetes management. I reviewed past medical, surgical, social, and family histories today and updated chart. Allergies, chronic medications, and supplements were also reviewed. 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 dulaglutide (TRULICITY) 4.5 mg/0.5 mL pen injector Inject 4.5 mg subcutaneously one time a week. estradiol (ESTRACE) 2 mg tablet Take 1 tablet by mouth once daily. Blood-Glucose Sensor (DEXCOM G7 SENSOR) kali Apply new sensor every ten (10) days. propylene glycoL (SYSTANE BALANCE) 0.6 % drop Use 1 Drop in both eyes as needed. Lancets Use with blood glucose test once daily. Insulin Dep? No lisinopril (ZESTRIL) 10 mg tablet Take 1 tablet by mouth once daily. metoprolol tartrate, short acting, (LOPRESSOR) 25 mg tablet Take 1 tablet by mouth two times a day. metFORMIN ER (GLUCOPHAGE XR) 500 mg 24 hr tablet Take 3 tablets by mouth daily with breakfast. rosuvastatin (CRESTOR) 20 mg tablet Take 1 tablet by mouth once daily. Insulin [place], Disposable, (PEN NEEDLE) 32 gauge x 5/32 Use to inject insulin up to 4 times per day as directed. Blood-Glucose Mete (more content not included)... Normal [facility] DBT Breast - bilateral scree allan 08-27-2024 Radiology [facility] HEMOGLOBIN A1C (POC)on 08-27 HbA1c (Bld) [Mass fraction] 6.5 % Abnormal 4.3 - 5.6 % [facility] Comment on above: Location:[facility], [address] [place] [address], [facility] Point of care (POC) Hemoglobin A1c (HGBA1C) testing is intended to assess glucose control and provide a management tool for patients known to have diabetes and their healthcare providers. Target HGBA1C levels may depend on specific clinical circumstances. POC HGBA1C is not intended for use as a diagnostic or screening test; laboratory-based testing should be used for diagnostic purposes. The following information is supplemental and may not be applicable to specific diabetes management situations: The POC device planting material unloader provides a normal range of 4.2% to 6.5% for the HGBA1C POC test. However, the [place] Diabetes [employer] guidelines indicate that patients with HGBA1C in the range of 5.7% to 6.4% are at increased risk for development of diabetes and that intervention by lifestyle modification may be beneficial. A HGBA1C level greater than or equal to 6.5% is considered diagnostic of diabetes, pending confirmatory testing. Use of HGBA1C testing to evaluate glucose control may not be appropriate for patients with hemoglobin variants or other conditions (e.g. anemia) that alter red blood cell lifespan. Interpretation and review of laboratory results Abnormal [facility] ROSALINDA SCREENING W TOMOon 08-27 ROSALINDA SCREENING W JESSY * * *Final Report* * * DATE OF EXAM: Aug 27 2024 2:48PM [id number] - [facility] SCREENING W JESSY / PROCEDURE REASON: Breast cancer screening by mammogram * * * * Physician Interpretation * * * * RESULT: [facility] [address] [place] [address] #[id number] - [facility] SCREENING W JESSY HISTORY: 54 year-old patient presents for screening. Patient is asymptomatic in both breasts. Patient states no personal history of breast cancer. COMPARISON STUDIES: The present examination has been compared to prior imaging studies dated 07/10/2020 (mammogram) and 12/09/2022 (mammogram). MAMMOGRAM TECHNIQUE: The study was acquired using full field digital technology and interpreted from soft copy. Digital Breast Tomosynthesis (DBT) images were obtained and used to assist in the interpretation of this examination. MAMMOGRAM FINDINGS: The breasts are heterogeneously dense, which may obscure small masses. No suspicious masses, calcifications or other abnormalities are seen in either breast. There are no significant interval changes. IMPRESSION: There is no mammographic evidence of malignancy in either breast. Routine screening mammogram is recommended. Annual mammogram will be due in 1 year. BI-RADS Category 1: Negative RISK: Based on the Tyrer-Cuzick (TC) risk assessment model, this patient has a 9.9% lifetime risk of developing breast cancer, meaning they are at average risk for developing breast cancer. However, this is only an estimate based on available history provided on the patient's questionnaire. We encourage all patients to talk with their providers about these results, further recommendations for managing breast health, and appropriate supplemental screening options if the patient has dense breast tissue. Interpreting Radiologist: Federica Tabares M.D. Electronically signed on: 08/29/2024 Helicopter Pilot Instructor: MELISSA Transcribe Date/Time: Aug 27 2024 2:24P Dictated by: FEDERICA TABARES MD This examination was interpreted and the report reviewed and electronically signed by: FEDERICA TABARES MD on Aug 29 2024 3:13PM EST [id number] CN Normal [facility] Cardiology Visit Reporton Cardiology Visit Report [facility] [address] [place] [address] OFFICE VISIT Date of Service: 08/08/24 MR#: [id number] Acct: [id number] Name: ISAI GRAHAM Rep #: [id number] : 1970 Provider: Dr. Gus Juarez MD Age/Sex: 54/M Location: 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 At that time she had been put on a beta-kathleen as well as anticoagulation with Eliquis. She had an echocardiogram performed which also demonstrated preserved ejection fraction and structurally normal valves and normal atrial sizes. She does have an EKG from January 2023 demonstrating sinus rhythm and she says that she had discontinued her Eliquis over 3 months ago because she could not procure the medication because she was not getting prescriptions from her physician since she could not go up there. She also has a history of hypertension and diabetes for which she has been taking medication she has not had any palpitations recently no neck arm or jaw discomfort suggest angina. She has been compliant with all her other medications. Her most recent lipid profile demonstrated total cholesterol of 129 HDL of 47 LDL of 61. 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 Required: No Accompanied by: Self Is patient in pain?: No Allergies Penicillins Allergy (Verified 08/08/24 13:30) Unknown atorvastatin Adverse Reaction (Severe, Verified 08/08/24 13:30) myalgia Medications ???Medication ???Instructions ???Recorded ???Confirmed ???Type lisinopril 10 mg tablet 10 mg PO DAILY 04/08/20 08/08/24 H istory pen needle, diabetic 32 gauge x #100 ea 08/27/21 05/14/22 Rx (BD Ultra-Fine [place] Pen Needle) insulin aspart U-100 100 unit/mL 5 unit subcut TID 03/05/23 5 History subcutaneous cartridge insulin detemir U-100 100 unit/mL 22 unit subcut QHS 03/05/2308/08 History (3 mL) subcutaneous pen metoprolol tartrate 25 mg tablet 25 mg PO BID 03/05/23 08/08/24 His tory estradiol 2 mg tablet 2 mg PO QDAY 07/16/24 08/08/24 His tory metformin 500 mg tablet 1,500 mg PO QDAY 07/16/24 08/08/24 History omega-3 fatty acids 1,000 mg 1,000 mg PO QDAY 07/16/24 08/08/24 History capsule rosuvastatin 20 mg tablet 20 mg PO DAILY 07/16/24 08/08/24 H istory dulaglutide 4.5 mg/0.5 mL 4.5 mg subcut QWEEK 08/08/2408/08 History subcutaneous pen injector (Trulicity) [facility] Medical History Atrial flutter Gonadal dysgenesis, 46, XY Ongoing treatment with hormonal therapy BE (obstructive sleep apnea) Hyperlipidemia Atrial fibrillation Chondromalacia of right patella Obesity (BMI 30-39.9) Type 2 diabetes mellitus Fatty liver Hypertension Surgical History No history of previous surgery Family History Other CVA (cerebral vascular accident) Diabetes Hypertension Social History Smoking Status: Former smoker alcohol intake: current alcohol intake frequency: 0-2 drinks per day substance use type: does not use what type of physical activity do you participate in: walking, swimming and other ROS Const Const: Negative for fatigue, weakness, headache(s), daytime sleepiness or difficulty sleeping ENT ENT: Negative for headache(s), dizziness or Nosebleed/epistaxis Cardio Chest Pain: No Palpitations: No Edema: None Resp Respiratory: Negative for SOB with activity, SOB at rest, SOB orthopnea SOB lying down or Cough GI GI: Negative nausea, vomiting or heartburn Neuro Neuro: Negative for dizziness, lightheadedness, near syncope, headache(s) or weakness Endo Endo: Negative for fatigue Cardiology Exam Const Appearance: cooperative, healthy appearing, no acute distress, well developed and well groomed Nutritional Appearance: average body habitus and well nourished Orientation: alert, awake and oriented x3 Head Head: normal to inspection, normocephalic and atraumatic Ears: hearing grossly normal bilaterally and external ears normal Nose: external nose normal, nares normal, nasal mucous membranes and turbinates normal, septum normal and no nasal discharge Face and Sinus: face symmetric Mouth: oral mucosae normal, tong (more content not included)... Normal [facility] CNCOon 07-11-2024 CNCO Letter Text Normal [facility] CNPNon 05-21-2024 CNPN Telephone (EMQ) ISAI GRAHAM ([id number]) 1970 F T Date Time Provider Department 05/21/24 GHISLAINE BROWN EMPoly During your visit today, we recorded the following information about you: Gayle Campbell 05/21/2024 9:38 AM Signed Initiated PA for semaglutide (OZEMPIC) 0.25 mg or 0.5 mg (2 mg/3 mL) pen through [facility] Chart notes attached Questions Completed Waiting for determination Gayle Prior Ticket Maker Endocrinology and Metabolism Fitzwilliam Gayle Campbell 05/21/2024 12:59 PM Signed Dear Provider, Your patient's medication semaglutide (OZEMPIC) 0.25 mg or 0.5 mg (2 mg/3 mL) pen was denied. Denial letters are sent directly to the patient and at times to the healthcare providers. If we receive a denial letter, it will be indexed for your review. If you want to appeal the decision. Please submit your request via staff message to the Mohinder [facility] Auth Appeals Pool ([phone]). You can find templates listed below to support your appeal in [employer] (Epic drop down, select patient care, select send letter). If it is an urgent request, you can email the [facility] Prior auth Team at [email or web address]. Please make sure the documents below are completed in order to process your request. If the appeal is denied, do you want to schedule a peer to peer Yes/No. We will schedule peer to peer automatically if yes. Thank You, Mohinder Prior Auth Appeals Team Mohinder PA Appeal letter Mohinder PA Letter of Medical Necessity Mohinder MCCLELLAND [place] Denied Note from payer: Coverage is provided when the member meets all the followin. Member has a history of at least 120 days of therapy with THREE preferred medications in this UPDL category. ONE of the 120 day trials must be with a drug in the same drug class, Victoza (18 MG/3 ML PEN) (Brand name is preferred by the plan) or Trulicity (0.75 mg, 1.5 mg, 3 mg, and 4.5 mg)]. Other trials may include but are not limited to: Farxiga 5 and 10 mg (Brand name is preferred by the plan), Glimepiride, Glipizide, Januvia, Jardiance 10 and 25 mg and Metformin IR 500 mg, 850 mg, 1000 mg and ER (generics of Glucophage); 2. Member has had an inadequate clinical response (the inability to reach A1C goal (less than 7%) after at least 120 days of current regimen, with use of two or more drugs concomitantly per ADA ([place] Diabetes Association) guidelines and; 3. Member has documented adherence and appropriate dose escalation (must achieve maximum recommended dose or document that maximum recommended dose is not tolerated or is clinically inappropriate) and; 4. Documentation includes a patient specific A1C goal if less than 7% and must include current A1C (within the last 6 months). The [facility] Policy for Medical Necessity as posted on the [facility] website and [place] Unified Preferred Drug List criteria were reviewed and per [place] Administrative Code Rule 5160-1-01 (C) and (B), a medically necessary service must include: generally accepted standards of medical practice, be clinically appropriate in administration, treatment and outcome and be the lowest cost alternative to effectively treat the condition. Please contact your provider to assist you with other treatment options that might be covered under your benefit package, or other services that might be available through the community. Payer: [facility] Gayle Prior Ticket Maker Endocrinology and Metabolism Fitzwilliam Ghislaine Brown MD 05/22/2024 12:46 PM Signed Please let her know of below denial. We could increase Trulicity to 4.5 mg once weekly - is she okay with this ? Allergies As of Date: 05/21/2024 Noted Allergy Reaction ATORVASTATIN 09/05/2014 17 - Myalgia Comments: Severe muscle cramps PENICILLINS 07/20/2012 16 - Unknown Date Reviewed: 03/01/2024 Reviewed by: Paz Lugo DO - Fully Assessed Reason for Visit: Insurance Authorization [[id number]] Cmt: semaglutide (OZEMPIC) 0.25 mg or 0.5 mg (2 mg/3 mL) pen Prescriptions as of 05/24/2024 - semaglutide (OZEMPIC) 0.25 mg or 0.5 mg (2 mg/3 mL) pen Inject 0.5 mg subcutaneously one time a week. - estradiol (ESTRACE) 2 mg tablet Take 1 tablet by mouth once daily. - Blood-Glucose Sensor (Embedded Chat G7 SENSOR) kali Apply new sensor every ten (10) days. - insulin glargine (BASAGLAR KWIKPEN U-100 INSULIN) 100 unit/mL (3 mL) Inject 22 Units subcutaneously daily at bedtime. - propylene glycoL (SYSTANE BALANCE) 0.6 % drop Use 1 Drop in both eyes as needed. - Lancets Use with blood glucose test once daily. Insulin Dep? No - lisinopril (ZESTRIL) 10 mg tablet Take 1 tablet by mouth once daily. - apixaban (ELIQUIS) 5 mg tab(s) Take 1 tablet by mouth two times a day. - metoprolol tartrate, short acting, (LOPRESSOR) 25 mg tablet Take 1 tablet by mouth two times a day. - metFORMIN ER (GLUCOPHAGE XR) 500 mg (more content not included)... [facility] IS[facility] ([id number]) 1970 F T Date Time Provider Department 05/18/24 GHISLAINE BROWN During your visit today, we recorded the following information about you: Santa Mcclendon 05/18/2024 4:06 PM Signed Ghislaine Brown MD P Lkwd Clerical Pool See Wood Molder in 3 months , me in 6 months , thx 1st attempt sent mc to schedule Bettina Hernández 05/21/2024 8:41 AM Signed 2nd attempt Sent mc to call office. Bettina Mcnally 05/24/2024 7:46 AM Signed 3rd attempt Sent mc to call office. Andrés SHIPMAN Allergies As of Date: 05/18/2024 Noted Allergy Reaction ATORVASTATIN 09/05/2014 17 - Myalgia Comments: Severe muscle cramps PENICILLINS 07/20/2012 16 - Unknown Date Reviewed: 03/01/2024 Reviewed by: Paz Lugo DO - Fully Assessed Prescriptions as of 05/24/2024 - semaglutide (OZEMPIC) 0.25 mg or 0.5 mg (2 mg/3 mL) pen Inject 0.5 mg subcutaneously one time a week. - estradiol (ESTRACE) 2 mg tablet Take 1 tablet by mouth once daily. - Blood-Glucose Sensor (DEXCOM G7 SENSOR) kali Apply new sensor every ten (10) days. - insulin glargine (BASAGLAR KWIKPEN U-100 INSULIN) 100 unit/mL (3 mL) Inject 22 Units subcutaneously daily at bedtime. - propylene glycoL (SYSTANE BALANCE) 0.6 % drop Use 1 Drop in both eyes as needed. - Lancets Use with blood glucose test once daily. Insulin Dep? No - lisinopril (ZESTRIL) 10 mg tablet Take 1 tablet by mouth once daily. - apixaban (ELIQUIS) 5 mg tab(s) Take 1 tablet by mouth two times a day. - metoprolol tartrate, short acting, (LOPRESSOR) 25 mg tablet Take 1 tablet by mouth two times a day. - metFORMIN ER (GLUCOPHAGE XR) 500 mg 24 hr tablet Take 3 tablets by mouth daily with breakfast. - rosuvastatin (CRESTOR) 20 mg tablet Take 1 tablet by mouth once daily. - Insulin [place], Disposable, (PEN NEEDLE) 32 gauge x 5/32 Use to inject insulin up to 4 times per day as directed. - Blood-Glucose Meter,Continuous (DEXCOM G7 ADJUNCT FACULTY) misc Use to check blood sugar at least four (4) times daily. - qpcrc-4r-wxc-epa-fis h oil (OMEGA-3 FISH OIL) 300-1,000 mg cap Take 1 capsule by mouth once daily. - COMPOUNDED PRESCRIPTION Initiate CPAP @ 13 cm of water with humidification mask (per patient preference) optional chin strap (if indicated) and lifetime supplies DX: BE 327.23 Problem List As Of Date 05/18/2024 Noted Resolved Sleep apnea [G47.30] 03/21/2013 Encounter for screening mammogram for malignant*08/18/2016 Hepatic steatosis [K76.0] 05/07/2016 Mixed hyperlipidemia [E78.2] 03/08/2014 Gonadal dysgenesis, 46, XY [Q99.1] 08/12/2017 Iibn-ni-vxoqrf transgender person on hormone th*08/23/2018 09/01/2021 HTN (hypertension) [I10] Prediabetes [R73.03] 07/17/2019 05/13/2021 Type 2 diabetes mellitus without complication, *05/13/2021 Obesity, Class II, BMI 35-39.9 [E66.812] 03/24/2022 Atrial flutter (HCC) [I48.92] 03/24/2022 Encounter Status:Closed by SANTA MCCLENDON on 05/18/24 Normal [facility] Comprehensive metabolic 2000 panelon 05-18-2024 Albumin [Mass/Vol] 4.1 g/dL Normal 3.9-4.9 [facility] Comment on above: Order Comment: Speci men Type: BLOOD SPECIMENOrdering Facility: [facility] Address: [address] [place] [address] Performed By: #### 2 4323-8, 6-3 ####[facility] LABCLIA [id number] [address] [address] [place] ALP [Catalytic activity/Vol] 57 U/L Normal 38-113 [facility] Comment on above: Order Comment: Speci men Type: BLOOD SPECIMENOrdering Facility: [facility] Address: [address] [place] [address] Performed By: #### 2 4323-8, 3016-3 ####[facility] LABCLIA [id number] [address] [address] [place] ALT [Catalytic activity/Vol] 35 U/L Normal 10-54 [facility] Comment on above: Order Comment: Speci men Type: BLOOD SPECIMENOrdering Facility: [facility] Address: [address] [place], [place] [address] Performed By: #### 2 4323-8, 3015-3 ####[facility] LABCLIA [id number] [place] [id number] [place] Anion gap [Moles/Vol] 13 mmol/L Normal 8-15 [facility] Comment on above: Order Comment: Speci men Type: BLOOD SPECIMENOrdering Facility: [facility] Address: [address] [place] [address] Performed By: #### 2 4323-8, 3 ####[facility] LABCLIA [id number] [place] [address] [place] AST [Catalytic activity/Vol] 33 U/L Normal 14-40 [facility] Comment on above: Order Comment: Speci men Type: BLOOD SPECIMENOrdering Facility: [facility] Address: [address] [place] [address] Performed By: #### 2 4323-8, 3 ####[facility] LABCLIA [id number] [place] [id number] [place] Bilirubin [Mass/Vol] 0.2 mg/dL Normal 0.2-1.3 [facility] Comment on above: Order Comment: Speci men Type: BLOOD SPECIMENOrdering Facility: [facility] Address: [address] [place], [place] [address] Performed By: #### 2 4323-8, 3015-3 ####[facility] LABCLIA [id number] [place] [id number] [place] Calcium [Mass/Vol] 9.5 mg/dL Normal 8.5-10.2 [facility] Comment on above: Order Comment: Speci men Type: BLOOD SPECIMENOrdering Facility: [facility] Address: [address] [place] [id number] Performed By: #### 2 4323-8, 3016-3 ####[facility] LABCLIA [id number] [address] [address] [place] Chloride [Moles/Vol] 104 mmol/L Normal 98-107 [facility] Comment on above: Order Comment: Speci men Type: BLOOD SPECIMENOrdering Facility: [facility] Address: [address] [place], [place] [address] Performed By: #### 2 4323-8, 6-3 ####[facility] LABCLIA [id number] [place] [address] [place] CO2 [Moles/Vol] 23 mmol/L Normal 22-30 [facility] Comment on above: Order Comment: Speci men Type: BLOOD SPECIMENOrdering Facility: [facility] Address: [address] [place] [address] Performed By: #### 2 4323-8, 6-3 ####[facility] LABCLIA [id number] [place] [address] [place] Creatinine [Mass/Vol] 0.89 mg/dL Normal 0.73-1.22 [facility] Comment on above: Order Comment: Speci men Type: BLOOD SPECIMENOrdering Facility: [facility] Address: [address] [place], [place] [address] Performed By: #### 2 4323-8, 6-3 ####[facility] LABIA [id number] [place] [id number] [place] Creatinine and Glomerular filtration rate.predicted panel (S/P/Bld) 76 mL/min/1.73m??? Normal >=60 [facility] Comment on above: Order Comment: Speci men Type: BLOOD SPECIMENOrdering Facility: [facility] Address: [address] [place], [place] [address] Result Comment: Cata mated Glomerular Filtration Rate (eGFR) is calculated using the 2020 CKD-EPI creatinine equation. This equation utilizes serum creatinine, sex, and age as parameters. The creatinine assay has traceable calibration to isotope dilution-mass spectrometry. Refer to KDIGO guidelines for clinical interpretation. In patients with unstable renal function, e.g. those with acute kidney injury, the eGFR may not accurately reflect actual GFR. Performed By: #### 2 4323-8, 6-3 ####[facility] LABCLIA [id number] [place] [address] [place] Glucose [Mass/Vol] 195 mg/dL High 74-99 [facility] Comment on above: Order Comment: Joel garner Type: BLOOD SPECIMENOrdering Facility: [facility] Address: [address] [place] [address] Result Comment: The [place] Diabetes Association (ADA) provides guidance for cutoff values for fasting glucose and random glucose. The ADA defines fasting as no caloric intake for at least 8 hours. Fasting plasma glucose results between 100 to 125 mg/dL indicate increased risk for diabetes (prediabetes). Fasting plasma glucose results greater than or equal to 126 mg/dL meet the criteria for diagnosis of diabetes. In the absence of unequivocal hyperglycemia, results should be confirmed by repeat testing. In a patient with classic symptoms of hyperglycemia or hyperglycemic crisis, random plasma glucose results greater than or equal to 200 mg/dL meet the criteria for diagnosis of diabetes. Reference: Standards of Medical Care in Diabetes 2016, [place] Diabetes Association. Diabetes Care. 2016.39(Suppl 1). Performed By: #### 2 4323-8, 3015-3 ####[facility] LABIA [id number] [place] [id number] [place] Potassium [Moles/Vol] 4.2 mmol/L Normal 3.7-5.1 [facility] Comment on above: Order Comment: Joel garner Type: BLOOD SPECIMENOrdering Facility: [facility] Address: [address] [place] [address] Performed By: #### 2 4323-8, 3015-3 ####[facility] LABIA [id number] [address] [address] [place] Protein [Mass/Vol] 7.2 g/dL Normal 6.3-8.0 [facility] Comment on above: Order Comment: Speci men Type: BLOOD SPECIMENOrdering Facility: [facility] Address: [address] [place] [address] Performed By: #### 2 4323-8, 3016-3 ####[facility] LABCLIA [id number] [place] [id number] [place] Sodium [Moles/Vol] 140 mmol/L Normal 136-144 [facility] Comment on above: Order Comment: Speci men Type: BLOOD SPECIMENOrdering Facility: [facility] Address: [address] [place] [address] Performed By: #### 2 4323-8, 3016-3 ####[facility] LABIA [id number] [place] [address] [place] Urea nitrogen [Mass/Vol] 16 mg/dL Normal 7-21 [facility] Comment on above: Order Comment: Speci men Type: BLOOD SPECIMENOrdering Facility: [facility] Address: [address] [place] [address] Performed By: #### 2 4323-8, 3016-3 ####[facility] LABCLIA [id number] [place] [id number] [place] HbA1c (Bld)on 05-18-2024 Average glucose Estimated from glycated hemoglobin (Bld) [Mass/Vol] 157 mg/dL Normal [facility] Comment on above: Order Comment: Speci men Type: BLOOD SPECIMENOrdering Facility: [facility] Address: [address] [place] [address] Result Comment: eAG: (Estimated average glucose) is a calculated value from HgbA1c and is security systems sales representative of the average blood glucose level in the last 2-3 month period. Performed By: #### 5 5454-3 ####[facility] LABCLIA [id number] [place] [address] [place] HbA1c (Bld) [Mass fraction] 7.1 % High 4.3-5.6 [facility] Comment on above: Order Comment: Joel patsy Type: BLOOD SPECIMENOrdering Facility: [facility] Address: [address] [place] [address] Result Comment: [place] Diabetes Association guidelines indicate that patients with HgbA1c in the range 5.7-6.4% are at increased risk for development of diabetes, and intervention by lifestyle modification may be beneficial. HgbA1c greater or equal to 6.5% is considered diagnostic of diabetes. Performed By: #### 5 5454-3 ####[facility] [id number] [address] [place] TSH SerPl-aCncon 05-18-2024 TSH Qn 1.230 m[IU]/L Normal 0.270-4.200 [facility] Comment on above: Order Comment: Joel garner Type: BLOOD SPECIMENOrdering Facility: [facility] Address: [address] [place] [address] Performed By: #### 2 4323-8, 3016-3 ####[facility] [id number] [address] [place] CNPBina 04-23-2024 CNPN Telephone (PHMEWO) ISAI GRAHAM ([id number]) 1970 F T Date Time Provider Department 04/23/24 TORRIE HOWARD HAZEL During your visit today, we recorded the following information about you: Torrie Howard Formerly [facility] 04/23/2024 1:18 PM Signed Called patient for missed virtual visit this afternoon. She forgot and preferred to reschedule for next week. Denise rescheduled for 04/30. Torrie Howard, JorgeD, [facility] Primary Care Clinical Pharmacist Allergies As of Date: 04/23/2024 Noted Allergy Reaction ATORVASTATIN 09/05/2014 17 - Myalgia Comments: Severe muscle cramps PENICILLINS 07/20/2012 16 - Unknown Date Reviewed: 03/01/2024 Reviewed by: Paz Lugo DO - Fully Assessed Prescriptions as of 04/23/2024 - dulaglutide (TRULICITY) 0.75 mg/0.5 mL pen injector Inject 0.75 mg subcutaneously one time a week. - dulaglutide (TRULICITY) 1.5 mg/0.5 mL pen injector Inject 1.5 mg subcutaneously one time a week. Take this AFTER completing course of 0.75mg pens. - insulin glargine (BASAGLAR KWIKPEN U-100 INSULIN) 100 unit/mL (3 mL) Inject 25 Units subcutaneously daily at bedtime. - propylene glycoL (SYSTANE BALANCE) 0.6 % drop Use 1 Drop in both eyes as needed. - Lancets Use with blood glucose test once daily. Insulin Dep? No - lisinopril (ZESTRIL) 10 mg tablet Take 1 tablet by mouth once daily. - apixaban (ELIQUIS) 5 mg tab(s) Take 1 tablet by mouth two times a day. - metoprolol tartrate, short acting, (LOPRESSOR) 25 mg tablet Take 1 tablet by mouth two times a day. - estradiol (ESTRACE) 2 mg tablet Take 1 tablet by mouth once daily. - Blood-Glucose Sensor (DEXCOM G7 SENSOR) kali Apply new sensor every ten (10) days. - metFORMIN ER (GLUCOPHAGE XR) 500 mg 24 hr tablet Take 3 tablets by mouth daily with breakfast. - rosuvastatin (CRESTOR) 20 mg tablet Take 1 tablet by mouth once daily. - Insulin [place], Disposable, (PEN NEEDLE) 32 gauge x 5/32 Use to inject insulin up to 4 times per day as directed. - Blood-Glucose Meter,Continuous (DEXCOM G7 ADJUNCT FACULTY) misc Use to check blood sugar at least four (4) times daily. - dydju-2f-rem-epa-fis h oil (OMEGA-3 FISH OIL) 300-1,000 mg cap Take 1 capsule by mouth once daily. - COMPOUNDED PRESCRIPTION Initiate CPAP @ 13 cm of water with humidification mask (per patient preference) optional chin strap (if indicated) and lifetime supplies DX: EB 327.23 Problem List As Of Date 04/23/2024 Noted Resolved Sleep apnea [G47.30] 03/21/2013 Encounter for screening mammogram for malignant*08/18/2016 Hepatic steatosis [K76.0] 05/07/2016 Mixed hyperlipidemia [E78.2] 03/08/2014 Gonadal dysgenesis, 46, XY [Q99.1] 08/12/2017 Rugs-wo-qbnahz transgender person on hormone th*08/23/2018 09/01/2021 HTN (hypertension) [I10] Prediabetes [R73.03] 07/17/2019 05/13/2021 Type 2 diabetes mellitus without complication, *05/13/2021 Obesity, Class II, BMI 35-39.9 [E66.812] 03/24/2022 Atrial flutter (HCC) [I48.92] 03/24/2022 Encounter Status:Closed by TORRIE HOWARD on 04/23/24 [facility] CNOVon 03-01-2024 CNOV Office Visit (ODETTE) ISAI GRAHAM ([id number]) 1970 F T Date Time Provider Department 03/01/24 2:20 PM PAZ LUGO During your visit today, we recorded the following information about you: Temperature Pulse Respiration Blood pressure 97.6 degrees 59/minute 18/minute 118/70 Weight Height 109.8 kg 1.695 m Paz Lugo DO 03/10/2024 8:13 PM Signed Subjective HPI Pt is here to establish She was seen in the ED of [facility] on 1/16/25 for 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 She sees an paleobotanist for diabetes and hormone treatment She wears a CGM She runs her dog for exercise on a regular basis She does not use tobacco or nicotine products She does not eat a healthy diet ALLERGIES Allergen Reactions Atorvastatin Myalgia Severe muscle cramps Penicillins Unknown Current Outpatient Medications Medication Sig Dispense Refill predniSONE (DELTASONE) 20 mg tablet Take 3 tablets by mouth every afternoon. acyclovir (ZOVIRAX) 400 mg tablet take 1 tablet by mouth 5 (five) times daily propylene glycoL (SYSTANE BALANCE) 0.6 % drop Use 1 Drop in both eyes as needed. Lancets Use with blood glucose test once daily. Insulin Dep? No 100 Each 5 blood sugar diagnostic test strip Use with blood glucose test once daily, Insulin Dep? No (Patient taking differently: Use with blood glucose test 3-4 times daily, Insulin Dep? No) 100 Strip 5 lisinopril (ZESTRIL) 10 mg tablet Take 1 tablet by mouth once daily. 90 tablet 3 apixaban (ELIQUIS) 5 mg tab(s) Take 1 tablet by mouth two times a day. 180 tablet 1 metoprolol tartrate, short acting, (LOPRESSOR) 25 mg tablet Take 1 tablet by mouth two times a day. 180 tablet 3 estradiol (ESTRACE) 2 mg tablet Take 1 tablet by mouth once daily. 90 tablet 3 Blood-Glucose Sensor (BodyClocks AustraliaCOM G7 SENSOR) kali Apply new sensor every ten (10) days. 9 Each 3 insulin glargine (BASAGLAR KWIKPEN U-100 INSULIN) 100 unit/mL (3 mL) Inject 20 Units subcutaneously daily at bedtime. 30 mL 3 metFORMIN ER (GLUCOPHAGE XR) 500 mg 24 hr tablet Take 3 tablets by mouth daily with breakfast. 270 tablet 3 rosuvastatin (CRESTOR) 20 mg tablet Take 1 tablet by mouth once daily. 90 tablet 0 Insulin [place], Disposable, (PEN NEEDLE) 32 gauge x /32 Use to inject insulin up to 4 times per day as directed. 400 Each 3 Blood-Glucose Meter,Continuous (DEXCOM G7 ADJUNCT FACULTY) misc Use to check blood sugar at least four (4) times daily. 1 Each 0 alcohol swabs Use with blood glucose test once daily. Insulin Dep? No (Patient taking differently: Use with blood glucose test 3-4 times daily. Insulin Dep? No) 200 Each 5 zthiv-8n-gzs-epa-fis h oil (OMEGA-3 FISH OIL) 300-1,000 mg cap Take 1 capsule by mouth once daily. COMPOUNDED PRESCRIPTION Initiate CPAP @ 13 cm of water with humidification mask (per patient preference) optional chin strap (if indicated) and lifetime supplies DX: BE 327.23 1 Device 0 finasteride (PROSCAR) 5 mg tablet Take 1 tablet by mouth once daily. (Patient not taking: Reported on 03/01/2024) 90 tablet 3 TRULICITY 3 mg/0.5 mL pen injector Inject 3 mg subcutaneously one time a week. (Patient not taking: Reported on 03/01/2024) 2 mL 2 No current facility-administere d medications for this visit. ACTIVE PROBLEM LIST Sleep Apnea Encounter for Screening Mammogram for Malignant Neoplasm of Breast Hepatic Steatosis Mixed Hyperlipidemia Gonadal Dysgenesis, 46, Xy Htn (Hypertension) Type 2 Diabetes Mellitus (Hcc) Obesity, Class II, Bmi 35-39.9 Atrial Flutter (Hcc) Social History Tobacco Use Smoking status: Former Current packs/day: 0.50 Types: Cigarettes Smokeless tobacco: Never Tobacco comments: quit 2011 Vaping Use Vaping status: Former Substance Use Topics Alcohol use: No Drug use: No Family History Problem Relation Age of Onset Obstructive Sleep Apnea Mother Diabetes Father other (fungal infection in the blood) Father Stroke Father COPD Maternal Grandmother No Ocular Disease No Family History Reviewed past medical history, family history and surgeries. All medications and supplements were reviewed with the patient. Review of Systems Constitutional: Negative for chills, diaphoresis, fever, malaise/fatigue and weight loss. HENT: Negative for ear pain and hearing loss. Eyes: Negative for blurred vision and double vision. Respiratory: Negative for cough and shortness of breath. Cardiovascular: Negative for chest pain, palpitations and leg swelling. Gastrointestinal: Negative fo (more content not included)... Normal [facility] Brain/Head without Contrasto n 02-23-2024 Brain/Head without Contrast [facility] Imaging Services [address] [place] [address] Brain/Head without Contrast MR#: [id number] Acct: [id number] Name: ISAI GRAHAM Rep #: [id number] : 1970 M 53 From: Jason Pickering MD PCP: Care Physician,No Primary Status: REG ER Study: Brain/Head without Contrast Date of Exam: 02/07 08/01 Exam# [id number] Ordering Dr: Cristian Murray DO ADDENDUM by Dr. Jason Pickering MD on 02/23/24 at 1628 [id number] STUDY: CT BRAIN WITHOUT CONTRAST REASON FOR EXAM: Male, 53 years old. facial droop RADIATION DOSAGE (If Supplied By Facility): CTDIvol = ( 44.99 ) mGy, DLP = ( 829.85 ) mGycm TECHNIQUE: Transaxial CT imaging of the brain was performed without administration of intravenous contrast material. Individualized dose optimization techniques were used for this CT. COMPARISON: No relevant priors. FINDINGS: Normal soft tissue structures. Normal calvarium. Normal ventricles and cortical sulci. No significant periventricular white matter disease . Normal basal ganglia and thalami. Normal brainstem. Normal cerebellum. There is no intracranial hemorrhage. There are no findings of an acute ischemic infarction. Diffuse opacification of left maxillary sinus 02/23/24 1628 Date cc: Dr. Cristian Murray DO; No Primary Care Physician * Signed ADDENDUM by Dr. 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 : The above Results were Read Back by Jason Pickering MD to Cristian Murray DO, and understanding confirmed on 02/23/2024 16:33:16 (ET). Electronically Signed: Jason Pickering MD at 16:28 EST Reading Location ID and State: [address] [place] [address] Tel [phone], Service support , 02/23/24 1640 Date cc: Dr. Cristian Murray DO; No Primary Care Physician * Signed We are attempting to reach an attending provider to discuss findings. An addendum with communication details will be sent when the communication is complete. [id number] STUDY: CT BRAIN WITHOUT CONTRAST REASON FOR EXAM: Male, 53 years old. facial droop RADIATION DOSAGE (If Supplied By Facility): CTDIvol = ( 44.99 ) mGy, DLP = ( 829.85 ) mGycm TECHNIQUE: Transaxial CT imaging of the brain was performed without administration of intravenous contrast material. Individualized dose optimization techniques were used for this CT. COMPARISON: No relevant priors. FINDINGS: Normal soft tissue structures. Normal calvarium. Normal ventricles and cortical sulci. No significant periventricular white matter disease . Normal basal ganglia and thalami. Normal brainstem. Normal cerebellum. There is no intracranial hemorrhage. There are no findings of an acute ischemic infarction. 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 Normal [facility] Emergency Department Summary on 02-23-2024 Emergency Department Summary [facility] Medical Records Department [address] [place] [address] Emergency Department Summary 02/23/24 MR#: [id number] Acct: [id number] Name: ISAI GRAHAM Rep #: [id number] : 1970 53 From: Cristian Murray DO PCP: Care Physician,No Primary Status:DEP ER Location: ED HPI History of Present Illness Chief Complaint: Stroke Alert Informant: patient Narrative Narrative: 53-year-old patient presenting to the emergency room out of concern with facial droop. Patient states when she woke this morning and began brushing her teeth she noticed that the left side of her face appeared drooping. 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 She denies any skin rashes. She denies headache. No arm leg or balance issues. Patient is on Eliquis. [facility] Medical History (Updated 02/23/24 @ 16:[address] Cristian Murray, ) Atrial fibrillation Chondromalacia of right patella Type 2 diabetes mellitus Fatty liver Hypertension Home Medications ???Medication ???Instructions ???Recorded ???Last Taken ???Type estradiol 2 mg tablet 2 mg PO BID 04/08/20 Unknown History finasteride 5 mg tablet 5 mg PO DAILY 04/08/20 Unknown History lisinopril 10 mg tablet 10 mg PO DAILY 04/08/20 Unknown History pen needle, diabetic 32 gauge x #100 ea 08/27/21 Unknown Rx (BD Ultra-Fine [place] Pen Needle) apixaban 5 mg tablet (Eliquis) 5 mg PO BID 05/14/22 Unknown History insulin aspart U-100 100 unit/mL 5 unit subcut TID 03/05/23 Unknown History subcutaneous cartridge insulin detemir U-100 100 unit/mL 22 unit subcut QHS 03/05/23 Unknown History (3 mL) subcutaneous pen metformin 500 mg tablet 500 mg PO BID 03/05/23 Unknown History metoprolol tartrate 25 mg tablet 25 mg PO BID 03/05/23 Unknown History acyclovir 400 mg tablet 1 tab PO 5X/DAY #40 tabs 02/23/24 Unknown Rx prednisone 20 mg tablet 60 mg (3 x 20 mg) PO DAILY #21 02/23/24 Unknown Rx TABLETS Allergy/AdvReac Type Severity Reaction Status Date / Time Penicillins Allergy Unknown Verified 02/23/24 16:03 atorvastatin AdvReac Severe myalgia Verified 02/23/24 16:03 Family History Other CVA (cerebral vascular accident) Diabetes Hypertension Social History Smoking Status: Former smoker alcohol intake: current alcohol intake frequency: 0-2 drinks per day substance use type: does not use what type of physical activity do you participate in: walking, swimming and other ROS ROS ED Constitutional Constitutional ED: Denies chills or weight loss Eyes Eyes: Denies change in vision or diplopia ENT ENT ED: Denies ear pain, rhinorrhea or sore throat Cardiovascular Cardiovascular: Denies chest pain, orthopnea, palpitations or racing heartbeat Respiratory/Chest Respiratory/Chest: Denies cough, dyspnea or orthopnea Gastrointestinal Gastrointestinal: Denies abdominal pain, diarrhea, nausea or vomiting Genitourinary Genitourinary ED: Denies dysuria, hematuria or urinary frequency Musculoskeletal Musculoskeletal: Denies arthralgias or myalgias Integumentary Denies abscess or rash Neurologic Neurologic: Reports other Details: See history of present illness ; Denies headache(s), paresthesias or weakness Psychiatric Psychiatric: Denies anxiety, depression, suicidal ideation or suicidal thoughts Endocrine Endocrinology: Denies polydipsia, polyphagia or polyuria Allergic/Immunologic Allergic/Immunologic ED: Denies mouth swelling, tongue swelling or urticaria EXAM Physical Exam Const Vital Signs: 02/23/24 16:03 02/23/24 16:04 Temperature 98 F Temperature Source Oral Pulse Rate 78 78 Respiratory Rate 16 16 Blood Pressure 153/90 H 153/90 H Blood Pressure Mean 111 111 Pulse Ox 98 97 Oxygen Delivery Method Room Air Room Air Positive well nourished and well developed General Appearance ED: well developed HEENT Reports normocephalic, head/scalp atraumatic, TM's clear and moist mucous membranes Tympanic Membrane ED: Yes TM's clear Eyes PERRL and EOMs intact bilaterally Neck no lymphadenopathy, supple and no JVD Resp normal respiratory effort and clear to auscultation bilaterally Cardio regular rate, regular rhythm and no murmurs GI normal to inspection, nondistended, normoactive bowel sounds and non-tender Palpation: soft Back/Spine no CVA tenderness and normal ROM Extremity normal to inspection General Extremety ED: Negative for edema General Extremity: Negative for edema Neuro oriented x3 Neuro Narrative: Patient has a mild to moderate left facial droop. There is decreased wrinkling of the forehead when compared to the right. The left eye she demonstrates weakness (more content not included)... Normal [facility] Comprehensive metabolic 2000 panelon 12-06-2023 Albumin [Mass/Vol] 4.1 g/dL Normal 3.9-4.9 [facility] Comment on above: Order Comment: Speci men Type: BLOOD SPECIMENOrdering Facility: [facility] Address: [address] [place] [address] Performed By: #### 2 4323-8, LIPNF ####[facility] LABCLIA [id number] [place] [address] [place] ALP [Catalytic activity/Vol] 57 U/L Normal 38-113 [facility] Comment on above: Order Comment: Speci men Type: BLOOD SPECIMENOrdering Facility: [facility] Address: [address] [place] [address] Performed By: #### 2 4323-8, LIPNF ####[facility] LABCLIA [id number] [place] [address] [place] ALT [Catalytic activity/Vol] 27 U/L Normal 10-54 [facility] Comment on above: Order Comment: Speci men Type: BLOOD SPECIMENOrdering Facility: [facility] Address: [address] [place] [address] Performed By: #### 2 4323-8, LIPNF ####[facility] LABCLIA [id number] [place] [address] [place] Anion gap [Moles/Vol] 11 mmol/L Normal 8-15 [facility] Comment on above: Order Comment: Speci men Type: BLOOD SPECIMENOrdering Facility: [facility] Address: [address] [place] [address] Performed By: #### 2 4323-8, LIPNF ####[facility] LABCLIA [id number] [place] [address] [place] AST [Catalytic activity/Vol] 25 U/L Normal 14-40 [facility] Comment on above: Order Comment: Speci men Type: BLOOD SPECIMENOrdering Facility: [facility] Address: [address] [place] [address] Performed By: #### 2 4323-8, LIPNF ####[facility] LABCLIA [id number] [place] [address] [place] Bilirubin [Mass/Vol] mg/dL Low 0.2-1.3 [facility] Comment on above: Order Comment: Speci men Type: BLOOD SPECIMENOrdering Facility: [facility] Address: [address] [place] [address] Performed By: #### 2 4323-8, LIPNF ####[facility] LABCLIA [id number] [place] [address] [place] Calcium [Mass/Vol] 9.2 mg/dL Normal 8.5-10.2 [facility] Comment on above: Order Comment: Speci men Type: BLOOD SPECIMENOrdering Facility: [facility] Address: [address] [place] [address] Performed By: #### 2 4323-8, LIPNF ####[facility] LABCLIA [id number] [place] [address] [place] Chloride [Moles/Vol] 107 mmol/L Normal 98-107 [facility] Comment on above: Order Comment: Speci men Type: BLOOD SPECIMENOrdering Facility: [facility] Address: [address] [place] [address] Performed By: #### 2 4323-8, LIPNF ####[facility] LABCLIA [id number] [place] [address] [place] CO2 [Moles/Vol] 22 mmol/L Normal 22-30 [facility] Comment on above: Order Comment: Speci men Type: BLOOD SPECIMENOrdering Facility: [facility] Address: [address] [place] [address] Performed By: #### 2 4323-8, LIPNF ####[facility] LABCLIA [id number] [place] [address] [place] Creatinine [Mass/Vol] 0.78 mg/dL Normal 0.73-1.22 [facility] Comment on above: Order Comment: Speci men Type: BLOOD SPECIMENOrdering Facility: [facility] Address: [address] [place] [address] Performed By: #### 2 4323-8, LIPNF ####[facility] LABCLIA [id number] [place] [address] [place] Creatinine and Glomerular filtration rate.predicted panel (S/P/Bld) 90 mL/min/1.73m??? Normal >=60 [facility] Comment on above: Order Comment: Speci men Type: BLOOD SPECIMENOrdering Facility: [facility] Address: [address] [place] [address] Result Comment: Cata mated Glomerular Filtration Rate (eGFR) is calculated using the 2020 CKD-EPI creatinine equation. This equation utilizes serum creatinine, sex, and age as parameters. The creatinine assay has traceable calibration to isotope dilution-mass spectrometry. Refer to KDIGO guidelines for clinical interpretation. In patients with unstable renal function, e.g. those with acute kidney injury, the eGFR may not accurately reflect actual GFR. Performed By: #### 2 4323-8, LIPNF ####[facility] LABCLIA [id number] [place] [id number] [place] Glucose [Mass/Vol] 91 mg/dL Normal 74-99 [facility] Comment on above: Order Comment: Speci men Type: BLOOD SPECIMENOrdering Facility: [facility] Address: [address] [place] [address] Result Comment: The [place] Diabetes Association (ADA) provides guidance for cutoff values for fasting glucose and random glucose. The ADA defines fasting as no caloric intake for at least 8 hours. Fasting plasma glucose results between 100 to 125 mg/dL indicate increased risk for diabetes (prediabetes). Fasting plasma glucose results greater than or equal to 126 mg/dL meet the criteria for diagnosis of diabetes. In the absence of unequivocal hyperglycemia, results should be confirmed by repeat testing. In a patient with classic symptoms of hyperglycemia or hyperglycemic crisis, random plasma glucose results greater than or equal to 200 mg/dL meet the criteria for diagnosis of diabetes. Reference: Standards of Medical Care in Diabetes 2016, [place] Diabetes Association. Diabetes Care. 2016.39(Suppl 1). Performed By: #### 2 4323-8, LIPNF ####[facility] LABCLIA [id number] [place] [address] [place] Potassium [Moles/Vol] 4.5 mmol/L Normal 3.7-5.1 [facility] Comment on above: Order Comment: Mamii men Type: BLOOD SPECIMENOrdering Facility: [facility] Address: [address] [place] [address] Performed By: #### 2 4323-8, LIPNF ####[facility] LABCLIA [id number] [place] [address] [place] Protein [Mass/Vol] 6.9 g/dL Normal 6.3-8.0 [facility] Comment on above: Order Comment: Speci men Type: BLOOD SPECIMENOrdering Facility: [facility] Address: [address] [place] [address] Performed By: #### 2 4323-8, LIPNF ####[facility] LABCLIA [id number] [place] [address] [place] Sodium [Moles/Vol] 140 mmol/L Normal 136-144 [facility] Comment on above: Order Comment: Speci men Type: BLOOD SPECIMENOrdering Facility: [facility] Address: [address] [place] [address] Performed By: #### 2 4323-8, LIPNF ####[facility] LABCLIA [id number] [address] [address] [place] Urea nitrogen [Mass/Vol] 10 mg/dL Normal 7-21 [facility] Comment on above: Order Comment: Speci men Type: BLOOD SPECIMENOrdering Facility: [facility] Address: [address] [place] [address] Performed By: #### 2 4323-8, LIPNF ####[facility] LABCLIA [id number] [place] [address] [place] HbA1c (Bld)on 12-06-2023 Average glucose Estimated from glycated hemoglobin (Bld) [Mass/Vol] 128 mg/dL Normal [facility] Comment on above: Order Comment: Speci men Type: BLOOD SPECIMENOrdering Facility: [facility] Address: [address] [place] [address] Result Comment: eAG: (Estimated average glucose) is a calculated value from HgbA1c and is security systems sales representative of the average blood glucose level in the last 2-3 month period. Performed By: #### 5 5454-3 ####[facility] LABCLIA [id number] [place] [address] [place] HbA1c (Bld) [Mass fraction] 6.1 % High 4.3-5.6 [facility] Comment on above: Order Comment: Speci [facility] Type: BLOOD SPECIMENOrdering Facility: [facility] Address: [address] [place] [address] Result Comment: [place] Diabetes Association guidelines indicate that patients with HgbA1c in the range 5.7-6.4% are at increased risk for development of diabetes, and intervention by lifestyle modification may be beneficial. HgbA1c greater or equal to 6.5% is considered diagnostic of diabetes. Performed By: #### 5 5454-3 ####[facility] LABCLIA [id number] OF [place] LIPID PANEL, NONFASTINGon Cholesterol [Mass/Vol] 129 mg/dL Normal <200 [facility] Comment on above: Order Comment: Speci men Type: BLOOD SPECIMENOrdering Facility: [facility] Address: [address] [place] [address] Result Comment: <200 mg/dL, Desirable 200-239 mg/dL, Borderline high >239 mg/dL, High Performed By: #### 2 4323-8, LIPNF ####[facility] LABCLIA [id number] [address] STATES OF [facility] HDL CHOLESTEROL, NF 47 mg/dL Normal >39 [facility] Comment on above: Order Comment: Speci men Type: BLOOD SPECIMENOrdering Facility: [facility] Address: [address] [place] [address] Result Comment: 40-5 9 mg/dL, Acceptable >59 mg/dL, High: Negative risk factor for coronary heart disease <40 mg/dL, Low: Positive risk factor for coronary heart disease Performed By: #### 2 4323-8, LIPNF ####[facility] LABCLIA [id number] [address] LDL CHOLESTEROL, NF 61 mg/dL Normal <100 [facility] Comment on above: Order Comment: Speci men Type: BLOOD SPECIMENOrdering Facility: [facility] Address: [address] [place] [address] Result Comment: <100 mg/dL, Optimal 100-129 mg/dL, Near optimal/above optimal 130-159 mg/dL, Borderline high 160-189 mg/dL, High >189 mg/dL, Very high Secondary prevention optimal LDL Cholesterol levels are recommended to be < 70 mg/dL Performed By: #### 2 4323-8, LIPNF ####[facility] LABCLIA [id number] [place] [address] [place] LDL/HDL RATIO, NF 1.30 mg/dL Normal <2.54 [facility] Comment on above: Order Comment: Joel patsy Type: BLOOD SPECIMENOrdering Facility: [facility] Address: [address] [place] [address] Result Comment: Refe sangitace: 1. National Cholesterol Education Program ATP III Guideline At-A-Glance Quick Desk Reference: National Heart, Lung, and Blood [place]. National Institutes of Health. 2001: NIH Publication No. 01-3305. 2. An International Atherosclerosis Society position paper: global recommendations for the management of dyslipidemia: executive summary, Atherosclerosis. 2014: 232(2):410-413. Performed By: #### 2 4323-8, LIPNF ####[facility] LABCLIA [id number] [address] STATES OF [place] NON HDL CHOL, NF 82 mg/dL Normal <130 [facility] Comment on above: Order Comment: Joel garner Type: BLOOD SPECIMENOrdering Facility: [facility] Address: [address] [place] [address] Result Comment: <130 mg/dL, Optimal 130-159 mg/dL, Near optimal/above optimal 160-189 mg/dL, Borderline high 190-219 mg/dL, High >219 mg/dL, Very high Secondary prevention optimal non HDL Cholesterol levels are recommended to be <100 mg/dL Performed By: #### 2 4323-8, LIPNF ####[facility] LABCLIA [id number] [address] STATES OF [facility] T CHOL/HDL RATIO NF 2.74 mg/dL Normal <5.10 [facility] Comment on above: Order Comment: Mamijaleel garner Type: BLOOD SPECIMENOrdering Facility: [facility] Address: [address] [place] [address] Performed By: #### 2 4323-8, LIPNF ####[facility] LABCLIA [id number] [place] [address] [place] TRIGLYCERIDES, NF 103 mg/dL Normal <150 [facility] Comment on above: Order Comment: Speci men Type: BLOOD SPECIMENOrdering Facility: [facility] Address: [address] [place] [address] Result Comment: <150 mg/dL, Normal 150-199 mg/dL, Borderline high 200-499 mg/dL, High >499 mg/dL, Very high Performed By: #### 2 4323-8, LIPNF ####[facility] LABCLIA [id number] [address] STATES OF [place] VLDL CHOLESTEROL, NF 21 mg/dL Normal <30 [facility] Comment on above: Order Comment: Speci men Type: BLOOD SPECIMENOrdering Facility: [facility] Address: [address] [place] [address] Performed By: #### 2 4323-8, LIPNF ####[facility] LABCLIA [id number] [place] [address] [place] HEMOGLOBIN A1C (POC)on 03-22 HbA1c (Bld) [Mass fraction] 12.5 % Abnormal 4.3 - 5.6 % [facility] Absolute lymphocyte countOrd ered By: Kell Licona on 03-05-2023 Lymphocytes Auto (Unsp spec) [#/Vol] 1.52 10*3/uL 0.83-4.51 [facility] Automated lymphocyte count a s percentage of total leukocytesOrdered By: Kell Licona on 03-05-2023 Lymphocytes/100 WBC Auto (Unsp spec) 27.0 % 19-41 [facility] Basophil percentageOrdered B y: Kell Licona on 03-05-2023 Basophil percentage 0 SEEN /hpf 0-5 [facility] Basophils/100 WBC (Bld) 0.7 % 0-1 [facility] Chloride [Moles/Vol] 100 mmol/L 98-107 [facility] Eosinophils/100 WBC (Bld) 2.8 % 0-5 [facility] Glucose [Mass/Vol] 470 mg/dL 74-106 [facility] Comment on above: Critical Result(s) C alled at: 13:06:42 03/05/2023 by: Rubio Chávez. To Johanne Burris RN (ER). Results read back by same.Glucose result greater than or equal to 200 mg/dLsuggests DIABETES MELLITUS per A.D.A. criteria. Hemoglobin (Bld) [Mass/Vol] 15.0 g/dL 13.0-16.5 [facility] Monocytes/100 WBC (Bld) 7.1 % 0-10 [facility] Neutrophils (Bld) [#/Vol] 3.5 10*3/uL 2.0-7.7 [facility] Neutrophils/100 WBC (Bld) 62.0 % 47-70 [facility] Potassium [Moles/Vol] 4.6 mmol/L 3.5-5.1 [facility] Sodium [Moles/Vol] 130 mmol/L 136-145 [facility] WBC (Bld) [#/Vol] 5.6 10*3/uL 4.4-11.0 [facility] Bilirubin Test strip Ql (U)O rdered By: Kell Licona on 03-05-2023 Bilirubin Ql (U) Negative Negative [facility] Determination of erythrocyte mean corpuscular volume (MCV)Ordered By: Kell Licona on 03-05-2023 MCV (RBC) [Entitic vol] 84.4 fL 80-94 [facility] Erythrocyte distribution wid th ratioOrdered By: Kell Licona on 03-05-2023 Erythrocyte distribution width (RBC) [Ratio] 12.2 % 11.6-14.6 [facility] Erythrocyte distribution wid th standard deviationOrdered By: Kell Licona on 03-05-2023 Erythrocyte distribution width (RBC) [Entitic vol] 37.0 fL 35.1-43.9 [facility] Hematocrit Auto (Bld) [Volum e fraction]Ordered By: Kell Licona on 03-05-2023 Hematocrit (Bld) [Volume fraction] 44.8 % 40-54 [facility] Immature granulocytes/100 WB C Auto (Bld)Ordered By: Kell Licona on 03-05-2023 Immature granulocytes/100 WBC (Bld) 0.400 % 0.0-0.9 [facility] Comment on above: IG% - Immature Granu locytes (promyelocytes, myelocytes and metamyelocytes) > 1% indicates that a LEFT SHIFT is Present. Ketones Test strip Ql (U)Ord ered By: Kell Licona on 03-05-2023 Ketones Ql (U) 5 mg/dl Negative [facility] Laboratory - Chemistry and C hemistry - challengeOrdered By: Kell Licona on 03-05-2023 CO2 [Moles/Vol] 23.0 mmol/L 21.0-32.0 [facility] Urea nitrogen/Creatinine [Mass ratio] 18.8 mg/mg 10-20 [facility] Laboratory - Hematology and Cell countsOrdered By: Kell Licona on 03-05-2023 MCH (RBC) [Entitic mass] 28.2 pg 27.0-32.0 [facility] MCHC (RBC) [Mass/Vol] 33.5 g/dL 32-36 [facility] Nucleated RBC/100 WBC (Bld) [Ratio] 0 % 0-5 [facility] Platelets (Bld) [#/Vol] 217 10*3/uL 150-450 [facility] Mucus LM Ql (Urine sed)Order ed By: Kell Licona on 03-05-2023 Mucus Ql (Urine sed) 0 SEEN /hpf [facility] Nitrite Test strip Ql (U)Ord ered By: Kell Licona on 03-05-2023 Nitrite Ql (U) Negative Negative [facility] No Panel InformationOrdered By: Kell Licona on 03-05-2023 Urine RBC 0 SEEN /hpf 0-5 [facility] Estimated Creatinine Clearance Calc 98.85 ml/min [facility] Estimated GFR (MDRD) Amer 99 mL/min >60 [facility] Comment on above: GFR Calc Estimated GFR (MDRD) Non-Af Amer 82 mL/min >60 [facility] Comment on above: Non- GFR Calc Platelet mean volume Keshawn-Ec ker (Bld) [Entitic vol]Ordered By: Kell Licona on 03-05-2023 Platelet mean volume (Bld) [Entitic vol] 10.0 fL 6.2-12.0 [facility] Protein Test strip Ql (U)Ord ered By: Kell Licona on 03-05-2023 Protein Ql (U) Negative Negative [facility] RBC Auto (Bld) [#/Vol]Ordere d By: Kell Licona on 03-05-2023 RBC (Bld) [#/Vol] 5.31 10*6/uL 4.6-6.2 [facility] Serum or plasma acetone mague urement (mass/volume)Ordered By: Kell Licona on 03-05-2023 Acetone [Mass/Vol] Negative NEG [facility] Serum or plasma calcium mague urement (mass/volume)Ordered By: Kell Licona on 03-05-2023 Calcium [Mass/Vol] 9.4 mg/dL 8.5-10.1 [facility] Serum or plasma creatinine m easurement (mass/volume)Ordered By: Kell Licona on 03-05-2023 Creatinine [Mass/Vol] 1.01 mg/dL 0.70-1.30 [facility] Comment on above: The validity of the calculated GFR & GFRAA in patients over 70 years has not been determined. Clinical correlation is essential. Serum or plasma urea nitroge n measurement (mass/volume)Ordered By: Kell Licona on 03-05-2023 Urea nitrogen [Mass/Vol] 19 mg/dL 7-18 [facility] Squamous epithelial cells de tection in urine sediment by light microscopyOrdered By: Kell Licona on 03-05-2023 Epithelial cells.squamous LM Ql (Urine sed) 0-5 SEEN /hpf 0-5 [facility] Thin prep Papanicolaou smear with manual screeningOrdered By: Brandon Benites on 03-05-2023 Thin prep Papanicolaou smear with manual screening 335 mg/dL 74-106 [facility] Comment on above: MANAGEMENT OF PATIEN T CARE PER NURSING PROTOCOL Thin prep Papanicolaou smear with manual screeningOrdered By: Kell Licona on 03-05-2023 Thin prep Papanicolaou smear with manual screening 7 5-15 [facility] Urine blood detectionOrdered By: Kell Licona on 03-05-2023 RBC Ql (U) 10 /ul Negative [facility] Urine clarityOrdered By: Francisca Licona on 03-05-2023 Clarity (U) Clear Clear [facility] Urine color determinationOrd ered By: Kell Licona on 03-05-2023 Color (U) Yellow Yellow [facility] Urine glucose detectionOrder ed By: Kell Licona on 03-05-2023 Glucose Ql (U) 1000 mg/dl Normal [facility] Urine leukocyte esterase det ection by dipstickOrdered By: Kell Licona on 03-05-2023 Leukocyte esterase Test strip Ql (U) Negative Negative [facility] Urine pHOrdered By: Kell woods on 03-05-2023 pH (U) 6.0 [pH] 5.0 - 8.0 [facility] Urine sediment bacteria coun t by microscopy (number/high power field)Ordered By: Kell Licona on 03-05-2023 Bacteria LM.HPF (Urine sed) [#/Area] 0 /[HPF] None Seen [facility] Urine specific gravity measu rementOrdered By: Kell Licona on 03-05-2023 Specific gravity (U) [Rel density] 1.015 1.002-1.030 [facility] Urine urobilinogen measureme ntOrdered By: Kell Licona on 03-05-2023 Urobilinogen Ql (U) Normal mg/dl Normal [facility] ROSALINDA SCREENINGon 12-09-2022 [facility] ALBUMIN/CREAT RATIO RND URon 11-24-2022 Albumin DL <= 20 mg/L (U) [Mass/Vol] [facility] Albumin/Creatinine (U) [Mass ratio] <30 mg/g [facility] Creatinine (U) [Mass/Vol] 71.6 mg/dL 20.0 - 300.0 mg/dL [facility] Absolute lymphocyte countOrd ered By: Dr. Rose on 05-14-2022 Lymphocytes Auto (Unsp spec) [#/Vol] 1.63 10*3/uL 0.83-4.51 [facility] Basophil percentageOrdered B y: Dr. Rose on 05-14-2022 Basophil percentage 0 SEEN /hpf 0-5 [facility] Basophils/100 WBC (Bld) 0.7 % 0-1 [facility] Bilirubin [Mass/Vol] 0.30 mg/dL 0.20-1.00 [facility] Comment on above: For patients on eltr ombopag therapy, use of Dimension [place] TBIL is not recommended. Chloride [Moles/Vol] 106 mmol/L 98-107 [facility] Eosinophils/100 WBC (Bld) 1.9 % 0-5 [facility] Glucose [Mass/Vol] 139 mg/dL 74-106 [facility] Comment on above: Fasting Glucose resu lt greater than or equal to 126 mg/dL suggests DIABETES MELLITUS per A.D.A. criteria. Neutrophils (Bld) [#/Vol] 3.7 10*3/uL 2.0-7.7 [facility] Neutrophils/100 WBC (Bld) 61.9 % 47-70 [facility] Potassium [Moles/Vol] 4.1 mmol/L 3.5-5.1 [facility] Protein [Mass/Vol] 7.3 g/dL 6.4-8.2 [facility] Sodium [Moles/Vol] 137 mmol/L 136-145 [facility] WBC (Bld) [#/Vol] 5.9 10*3/uL 4.4-11.0 [facility] Bilirubin Test strip Ql (U)O rdered By: Dr. Rose on 05-14-2022 Bilirubin Ql (U) Negative Negative [facility] Blood erythrocytes count (nu mber/volume)Ordered By: Dr. Rose on 05-14-2022 RBC (Bld) [#/Vol] 4.97 10*6/uL 4.6-6.2 [facility] Blood hemoglobin measurement (mass/volume)Ordered By: Dr. Rose on 05-14-2022 Hemoglobin (Bld) [Mass/Vol] 14.3 g/dL 13.0-16.5 [facility] Blood lymphocytes/100 leukoc ytesOrdered By: Dr. Rose on 05-14-2022 Lymphocytes/100 WBC (Bld) 27.7 % 19-41 [facility] Blood monocytes/100 leukocyt esOrdered By: Dr. Roes on 05-14-2022 Monocytes/100 WBC (Bld) 7.5 % 0-10 [facility] Blood platelet mean volumeOr dered By: Dr. Rose on 05-14-2022 Platelet mean volume (Bld) [Entitic vol] 10.2 fL 6.2-12.0 [facility] Determination of erythrocyte mean corpuscular volume (MCV)Ordered By: Dr. Rose on 05-14-2022 MCV (RBC) [Entitic vol] 86.9 fL 80-94 [facility] Hematocrit Auto (Bld) [Volum e fraction]Ordered By: Dr. Rose on 05-14-2022 Hematocrit (Bld) [Volume fraction] 43.2 % 40-54 [facility] Ketones Test strip Ql (U)Ord ered By: Dr. Rose on 05-14-2022 Ketones Ql (U) Negative Negative [facility] Laboratory - Chemistry and C hemistry - challengeOrdered By: Dr. Rose on 05-14-2022 ALP [Catalytic activity/Vol] 64 U/L 45-117 [facility] ALT [Catalytic activity/Vol] 298 U/L 16-61 [facility] CO2 [Moles/Vol] 23.0 mmol/L 21.0-32.0 [facility] Globulin (S) [Mass/Vol] 3.9 g/dL 2.2-4.2 [facility] Lipase [Catalytic activity/Vol] 218 U/L 73-393 [facility] Magnesium [Mass/Vol] 1.9 mg/dL 1.6-2.6 [facility] Urea nitrogen/Creatinine [Mass ratio] 19.1 mg/mg 10-20 [facility] Laboratory - Hematology and Cell countsOrdered By: Dr. Rose on 05-14-2022 Erythrocyte distribution width (RBC) [Entitic vol] 39.0 fL 35.1-43.9 [facility] Erythrocyte distribution width (RBC) [Ratio] 12.3 % 11.6-14.6 [facility] Immature granulocytes/100 WBC (Bld) 0.300 % 0.0-0.9 [facility] Comment on above: IG% - Immature Granu locytes (promyelocytes, myelocytes and metamyelocytes) > 1% indicates that a LEFT SHIFT is Present. MCH (RBC) [Entitic mass] 28.8 pg 27.0-32.0 [facility] Nucleated RBC/100 WBC (Bld) [Ratio] 0 % 0-5 [facility] MCHC Auto (RBC) [Mass/Vol]Or dered By: Dr. Rose on 05-14-2022 MCHC (RBC) [Mass/Vol] 33.1 g/dL 32-36 [facility] Mucus LM Ql (Urine sed)Order ed By: Dr. Rose on 05-14-2022 Mucus Ql (Urine sed) 0 SEEN /hpf [facility] Nitrite Test strip Ql (U)Ord ered By: Dr. Rose on 05-14-2022 Nitrite Ql (U) Negative Negative [facility] No Panel InformationOrdered By: Dr. Rose on 05-14-2022 Estimated Creatinine Clearance Calc 83.99 ml/min [facility] Estimated GFR (MDRD) Amer 107 mL/min >60 [facility] Comment on above: GFR Calc Estimated GFR (MDRD) Non-Af Amer 88 mL/min >60 [facility] Comment on above: Non- GFR Calc Platelets bldOrdered By: Dr. Rose on 05-14-2022 Platelets (Bld) [#/Vol] 212 10*3/uL 150-450 [facility] Protein Test strip Ql (U)Ord ered By: Dr. Rose on 05-14-2022 Protein Ql (U) Negative Negative [facility] Serum or plasma albumin mague urement (mass/volume)Ordered By: Dr. Rose on 05-14-2022 Albumin [Mass/Vol] 3.4 g/dL 3.2-5.0 [facility] Serum or plasma albumin/glob ulin mass ratioOrdered By: Dr. Rose on 05-14-2022 Albumin/Globulin [Mass ratio] 0.9 {ratio} 0.9-2.4 [facility] Serum or plasma calcium mague urement (mass/volume)Ordered By: Dr. Rose on 05-14-2022 Calcium [Mass/Vol] 9.4 mg/dL 8.5-10.1 [facility] Serum or plasma creatinine m easurement (mass/volume)Ordered By: Dr. Rose on 05-14-2022 Creatinine [Mass/Vol] 0.94 mg/dL 0.70-1.30 [facility] Comment on above: The validity of the calculated GFR & GFRAA in patients over 70 years has not been determined. Clinical correlation is essential. Serum or plasma urea nitroge n measurement (mass/volume)Ordered By: Dr. Rose on 05-14-2022 Urea nitrogen [Mass/Vol] 18 mg/dL 7-18 [facility] Squamous epithelial cells de tection in urine sediment by light microscopyOrdered By: Dr. Rose on 05-14-2022 Epithelial cells.squamous LM Ql (Urine sed) 0 SEEN /hpf 0-5 [facility] Stool lactoferrin detection by immunoassayOrdered By: Dr. Rose on 05-14-2022 Lactoferrin IA Ql (Stl) [facility] Thin prep Papanicolaou smear with manual screeningOrdered By: Dr. Rose on 05-14-2022 Thin prep Papanicolaou smear with manual screening 142 U/L 15-37 [facility] Thin prep Papanicolaou smear with manual screening 8 5-15 [facility] Urine blood detectionOrdered By: Dr. Rose on 05-14-2022 RBC Ql (U) Negative Negative [facility] RBC Ql (U) 0 SEEN /hpf 0-5 [facility] Urine clarityOrdered By: Dr. Rose on 05-14-2022 Clarity (U) Clear Clear [facility] Urine color determinationOrd ered By: Dr. Rose on 05-14-2022 Color (U) Yellow Yellow [facility] Urine glucose detectionOrder ed By: Dr. Rose on 05-14-2022 Glucose Ql (U) Normal mg/dl Normal [facility] Urine leukocyte esterase det ection by dipstickOrdered By: Dr. Rose on 05-14-2022 Leukocyte esterase Test strip Ql (U) Negative Negative [facility] Urine pHOrdered By: Dr. Iban andrea on 05-14-2022 pH (U) 6.0 [pH] 5.0 - 8.0 [facility] Urine sediment bacteria coun t by microscopy (number/high power field)Ordered By: Dr. Rose on 05-14-2022 Bacteria LM.HPF (Urine sed) [#/Area] 0 /[HPF] None Seen [facility] Urine specific gravity measu rementOrdered By: Dr. Rose on 05-14-2022 Specific gravity (U) [Rel density] 1.020 1.002-1.030 [facility] Urobilinogen Auto test strip Ql (U)Ordered By: Dr. Rose on 05-14-2022 Urobilinogen Ql (U) Normal mg/dl Normal [facility] GLUCOSE, BLOOD (POC)on 03-30 Glucose [Mass/Vol] 127 mg/dL Abnormal 74 - 99 mg/dL [facility] XR CHEST 2V FRONTAL/LATon [facility] Comprehensive metabolic 2000 panelon 03-24-2022 Albumin [Mass/Vol] 4.3 g/dL 3.9 - 4.9 g/dL [facility] ALP [Catalytic activity/Vol] 81 U/L 38 - 113 U/L [facility] ALT [Catalytic activity/Vol] 229 U/L High 10 - 54 U/L [facility] Anion gap [Moles/Vol] 12 mmol/L 9 - 18 mmol/L [facility] AST [Catalytic activity/Vol] 139 U/L High 14 - 40 U/L [facility] Bilirubin [Mass/Vol] 0.4 mg/dL 0.2 - 1 .3 mg/dL [facility] Calcium [Mass/Vol] 9.6 mg/dL 8.5 - 10. 2 mg/dL [facility] Chloride [Moles/Vol] 99 mmol/L 97 - 10 5 mmol/L [facility] CO2 [Moles/Vol] 23 mmol/L 22 - 30 mmol/L [facility] Creatinine [Mass/Vol] 0.62 mg/dL Low 0.73 - 1.22 mg/dL [facility] Estimated Glomerular Filtration Rate [facility] Glucose [Mass/Vol] 279 mg/dL High 74 - 99 mg/dL [facility] Potassium [Moles/Vol] 4.4 mmol/L 3.7 - 5.1 mmol/L [facility] Protein [Mass/Vol] 7.8 g/dL 6.3 - 8.0 g/dL [facility] Sodium [Moles/Vol] 134 mmol/L Low 136 - 144 mmol/L [facility] Urea nitrogen [Mass/Vol] 14 mg/dL 9 - 24 mg/d L [facility] MAGNESIUM BLDon 03-24-2022 Magnesium [Mass/Vol] 2.0 mg/dL 1.7 - 2 .3 mg/dL [facility] PHOSPHORUS INORGANICon 03-24 Phosphate [Mass/Vol] 3.9 mg/dL [facility] TSH BLDon 03-24-2022 TSH Qn 1.050 m[IU]/L 0.270 - 4.200 mIU/L [facility] No Panel Informationon 03-11 [facility] CERULOPLASMIN BLDon 03-05-19 Ceruloplasmin [Mass/Vol] 35 mg/dL High 15 - 30 mg/ dL [facility] FERRITIN BLDon 03-05-2022 Ferritin [Mass/Vol] 1015.0 ng/mL High 30.3 - 5 65.7 ng/mL [facility] Hepatic function 2000 panelo n 03-05-2022 Albumin [Mass/Vol] 4.4 g/dL 3.9 - 4.9 g/dL [facility] ALP [Catalytic activity/Vol] 85 U/L 38 - 113 U/L [facility] ALT [Catalytic activity/Vol] 467 U/L High 10 - 54 U/L [facility] AST [Catalytic activity/Vol] 424 U/L High 14 - 40 U/L [facility] Bilirubin [Mass/Vol] 0.4 mg/dL 0.2 - 1 .3 mg/dL [facility] Bilirubin.conjugated [Mass/Vol] <0.2 mg/dL [facility] Protein [Mass/Vol] 8.1 g/dL High 6.3 - 8.0 g/dL [facility] PT panel Coag (PPP)on 2022 INR Coag (PPP) [Relative time] 1.0 {INR} 0.9 - 1.3 [facility] PT Coag (PPP) [Time] 10.6 s 9.7 - 1 3.0 sec [facility] Absolute lymphocyte counton 06-16-2021 Lymphocytes Auto (Unsp spec) [#/Vol] 1.29 10*3/uL 0.83-4.51 [facility] Work Phone: Basophil percentageon 2021 Basophil percentage 0-5 SEEN /hpf [facility] Work Phone: Basophils/100 WBC (Bld) 0.9 % 0-1 [facility] Work Phone: Bilirubin [Mass/Vol] 0.50 mg/dL 0.20-1.00 [facility] Work Phone: Comment on above: For patients on eltr ombopag therapy, use of Dimension [place] TBIL is not recommended. Chloride [Moles/Vol] 99 mmol/L 98-107 [facility] Work Phone: Eosinophils/100 WBC (Bld) 1.3 % 0-5 [facility] Work Phone: Glucose [Mass/Vol] 395 mg/dL 74-106 [facility] Work Phone: Comment on above: Glucose result great er than or equal to 200 mg/dLsuggests DIABETES MELLITUS per A.D.A. criteria. Neutrophils (Bld) [#/Vol] 2.6 10*3/uL 2.0-7.7 [facility] Work Phone: Neutrophils/100 WBC (Bld) 57.4 % 47-70 [facility] [facility] Work Phone: Potassium [Moles/Vol] 3.9 mmol/L 3.5-5.1 [facility] Work Phone: Protein [Mass/Vol] 7.5 g/dL 6.4-8.2 [facility] Work Phone: Sodium [Moles/Vol] 134 mmol/L 136-145 [facility] Work Phone: WBC (Bld) [#/Vol] 4.6 10*3/uL 4.4-11.0 [facility] Work Phone: Bilirubin Test strip Ql (U)o n 06-16-2021 Bilirubin Ql (U) Negative Negative [facility] Work Phone: Blood erythrocytes count (nu mber/volume)on 06-16-2021 RBC (Bld) [#/Vol] 4.95 10*6/uL 4.2-5.4 [facility] Work Phone: Blood hemoglobin measurement (mass/volume)on 06-16-2021 Hemoglobin (Bld) [Mass/Vol] 13.9 g/dL 12.0-15.0 [facility] Work Phone: Blood lymphocytes/100 leukoc yteson 06-16-2021 Lymphocytes/100 WBC (Bld) 28.2 % 19-41 [facility] Work Phone: Blood monocytes/100 leukocyt eson 06-16-2021 Monocytes/100 WBC (Bld) 11.8 % 0-10 [facility] Work Phone: Blood platelet mean volumeon 06-16-2021 Platelet mean volume (Bld) [Entitic vol] 9.4 fL 6.2-12.0 [facility] Work Phone: Determination of erythrocyte mean corpuscular volume (MCV)on 06-16-2021 MCV (RBC) [Entitic vol] 82.6 fL 81-99 [facility] Work Phone: Glucose Glucometer (BldC) [M ass/Vol]on 06-16-2021 Glucose [Mass/Vol] 414 mg/dL 74-106 [facility] Work Phone: Comment on above: MANAGEMENT OF PATIEN T CARE PER NURSING PROTOCOL Hematocrit Auto (Bld) [Volum e fraction]on 06-16-2021 Hematocrit (Bld) [Volume fraction] 40.9 % 37-47 [facility] Work Phone: Ketones Test strip Ql (U)on 06-16-2021 Ketones Ql (U) 150 mg/dl Negative [facility] Work Phone: Comment on above: CRITICAL VALUE *HCRI TICAL VALUE VERIFIED. CALLED TO [id number] Kelle Flowers.RESULTS READ BACK BY SAME . Laboratory - Chemistry and C hemistry - challengeon 06-16-2021 ALP [Catalytic activity/Vol] 73 U/L 45-117 [facility] Work Phone: ALT [Catalytic activity/Vol] 215 U/L 13-56 [facility] Work Phone: CO2 [Moles/Vol] 21.0 mmol/L 21.0-32.0 [facility] Work Phone: Globulin (S) [Mass/Vol] 4.3 g/dL 2.2-4.2 [facility] Work Phone: Urea nitrogen/Creatinine [Mass ratio] 16.5 mg/mg 10-20 [facility] Work Phone: Laboratory - Hematology and Cell countson 06-16-2021 Erythrocyte distribution width (RBC) [Entitic vol] 36.5 fL 35.1-43.9 [facility] Work Phone: Erythrocyte distribution width (RBC) [Ratio] 12.0 % 11.6-14.6 [facility] Work Phone: Immature granulocytes/100 WBC (Bld) 0.400 % 0.0-0.9 [facility] Work Phone: Comment on above: IG% - Immature Granu locytes (promyelocytes, myelocytes and metamyelocytes) > 1% indicates that a LEFT SHIFT is Present. MCH (RBC) [Entitic mass] 28.1 pg 27.0-32.0 [facility] Work Phone: Nucleated RBC/100 WBC (Bld) [Ratio] 0 % 0-5 [facility] Work Phone: MCHC Auto (RBC) [Mass/Vol]on 06-16-2021 MCHC (RBC) [Mass/Vol] 34.0 g/dL 32-36 [facility] Work Phone: Mucus LM Ql (Urine sed)on Mucus Ql (Urine sed) 0 SEEN /hpf [facility] Work Phone: Nitrite Test strip Ql (U)on 06-16-2021 Nitrite Ql (U) Negative Negative [facility] Work Phone: No Panel Informationon 06-16 Estimated Creatinine Clearance Calc 86.67 ml/min [facility] Work Phone: Estimated GFR (MDRD) Amer 108 mL/min >60 [facility] Work Phone: Comment on above: GFR Calc Estimated GFR (MDRD) Non-Af Amer 89 mL/min >60 [facility] Work Phone: Comment on above: Non- GFR Calc Platelets bldon 06-16-2021 Platelets (Bld) [#/Vol] 221 10*3/uL 150-450 [facility] Work Phone: Protein Test strip Ql (U)on 06-16-2021 Protein Ql (U) Negative Negative [facility] Work Phone: Serum or plasma albumin mague urement (mass/volume)on 06-16-2021 Albumin [Mass/Vol] 3.2 g/dL 3.2-5.0 [facility] Work Phone: Serum or plasma albumin/glob ulin mass ratioon 06-16-2021 Albumin/Globulin [Mass ratio] 0.7 {ratio} 0.9-2.4 [facility] Work Phone: Serum or plasma calcium mague urement (mass/volume)on 06-16-2021 Calcium [Mass/Vol] 8.9 mg/dL 8.5-10.1 [facility] Work Phone: Serum or plasma creatinine m easurement (mass/volume)on 06-16-2021 Creatinine [Mass/Vol] 0.73 mg/dL 0.55-1.02 [facility] Work Phone: Comment on above: The validity of the calculated GFR & GFRAA in patients over 70 years has not been determined. Clinical correlation is essential. Serum or plasma urea nitroge n measurement (mass/volume)on 06-16-2021 Urea nitrogen [Mass/Vol] 12 mg/dL 7-18 [facility] Work Phone: Squamous epithelial cells de tection in urine sediment by light microscopyon 06-16-2021 Epithelial cells.squamous LM Ql (Urine sed) 0-5 SEEN /hpf [facility] Work Phone: Thin prep Papanicolaou smear with manual screeningon 06-16-2021 Thin prep Papanicolaou smear with manual screening 91 U/L 15-37 [facility] Work Phone: Thin prep Papanicolaou smear with manual screening 14 5-15 [facility] Work Phone: Urine blood detectionon 06-07 RBC Ql (U) 10 /ul Negative [facility] Work Phone: RBC Ql (U) 0-5 SEEN /hpf [facility] Work Phone: Urine clarityon 06-16-2021 Clarity (U) Clear Clear [facility] Work Phone: Urine color determinationon 06-16-2021 Color (U) Yellow Yellow [facility] Work Phone: Urine glucose detectionon Glucose Ql (U) 1000 mg/dl Normal [facility] Work Phone: Urine leukocyte esterase det ection by dipstickon 06-16-2021 Leukocyte esterase Test strip Ql (U) Negative Negative [facility] Work Phone: Urine pHon 06-16-2021 pH (U) 6.0 [pH] [facility] Work Phone: Urine sediment bacteria coun t by microscopy (number/high power field)on 06-16-2021 Bacteria LM.HPF (Urine sed) [#/Area] 0 /[HPF] None Seen [facility] Work Phone: Urine specific gravity measu rementon 06-16-2021 Specific gravity (U) [Rel density] 1.020 [facility] Work Phone: Urobilinogen Auto test strip Ql (U)on 06-16-2021 Urobilinogen Ql (U) Normal mg/dl Normal [facility] Work Phone: Whole blood hemoglobin A1c/t otal hemoglobin ratio (mass fraction)on 06-16-2021 HbA1c (Bld) [Mass fraction] 12.3 % 3.8-5.6 [facility] Work Phone: Comment on above: Normal < 5.7 % Predi abetic 5.7 - 6.4 % Diabetic >or= 6.5 % Please note range changes. US ABD RT UPPER QUADRANTon 0 05-14-2021 [facility] No Panel Information [facility] Vital Signs Date Time Vital Sign Value Performing Clinician Facility 08-27-2024 09:14-0400 Body height 170.2 cm Alli Aguirre APRN.CNP Work Phone: [facility] 08-27-2024 09:14-0400 Body mass index (BMI) [Ratio] 39.16 kg/m2 Alli Aguirre APRN.CNP Work Phone: [facility] 08-27-2024 09:14-0400 Body temperature 98.01 [degF] Alli Aguirre APRN.CNP Work Phone: [facility] 08-27-2024 09:14-0400 Body weight 113.4 kg Alli Aguirre APRN.CNP Work Phone: [facility] 08-27-2024 09:14-0400 Diastolic blood pressure 70 mm[Hg] Alli Aguirre APRN.CNP Work Phone: [facility] 08-27-2024 09:14-0400 Heart rate 69 /min Alli Aguirre APRN.VOCAL PERFORMER Work Phone: [facility] 08-27-2024 09:14-0400 SaO2% (BldA) [Mass fraction] 98 % Alli Aguirre APRN.CNP Work Phone: [facility] 08-27-2024 09:14-0400 Systolic blood pressure 118 mm[Hg] Alli Aguirre APRN.CNP Work Phone: [facility] 08-08-2024 13:25-0400 Body height 170.[address] Paz Lugo DO Work Phone: [facility] 08-08-2024 13:25-0400 Body mass index (BMI) [Ratio] 39.4 kg/m2 Dr. Paz Lugo DO Work Phone: [facility] 08-08-2024 13:25-0400 Body weight 114.[address] Paz Lugo DO Work Phone: [facility] 08-08-2024 13:25-0400 Diastolic blood pressure 76 mm[Hg] Dr. Paz Lugo DO Work Phone: [facility] 08-08-2024 13:25-0400 Heart rate 72 /min Dr. Paz Lugo DO Work Phone: [facility] 08-08-2024 13:25-0400 Respiratory rate 16 /min Dr. Paz Lugo DO Work Phone: [facility] 08-08-2024 13:25-0400 Systolic blood pressure 126 mm[Hg] Dr. Paz Lugo DO Work Phone: [facility] 05-18-2024 15:35-0400 Body height 170.2 cm Ghislaine Brown MD Work Phone: [facility] 05-18-2024 15:35-0400 Body mass index (BMI) [Ratio] 38.84 kg/m2 Ghislaine Brown MD Work Phone: [facility] 05-18-2024 15:35-0400 Body weight 112.49 kg Ghislaine Brown MD Work Phone: [facility] 03-01-2024 14:38-0500 Body height 169.5 cm Paz Lugo DO Work Phone: [facility] 03-01-2024 14:38-0500 Body mass index (BMI) [Ratio] 38.19 kg/m2 Paz Lugo DO Work Phone: [facility] 03-01-2024 14:38-0500 Body temperature 97.59 [degF] Paz Sheets DO Work Phone: [facility] 03-01-2024 14:38-0500 Body weight 109.77 kg Paz Sheets DO Work Phone: [facility] 03-01-2024 14:38-0500 Diastolic blood pressure 70 mm[Hg] Paz Sheets DO Work Phone: [facility] 03-01-2024 14:38-0500 Heart rate 59 /min Paz Sheets DO Work Phone: [facility] 03-01-2024 14:38-0500 Respiratory rate 18 /min Paz Sheets DO Work Phone: [facility] 03-01-2024 14:38-0500 SaO2% (BldA) [Mass fraction] 94 % Paz Sheets DO Work Phone: [facility] 03-01-2024 14:38-0500 Systolic blood pressure 118 mm[Hg] Paz Sheets DO Work Phone: [facility] 03-22-2023 09:54-0500 Body height 170.2 cm Ghislaine Brown MD Work Phone: [facility] 03-22-2023 09:54-0500 Body weight 107.37 kg Ghislaine Brown MD Work Phone: [facility] 03-22-2023 09:54-0500 Diastolic blood pressure 67 mm[Hg] Ghislaine Brown MD Work Phone: [facility] 03-22-2023 09:54-0500 Heart rate 61 /min Ghislaine Brown MD Work Phone: [facility] 03-22-2023 09:54-0500 Systolic blood pressure 118 mm[Hg] Ghislaine Brown MD Work Phone: [facility] 03-05-2023 16:15-0500 Diastolic blood pressure 79 mm[Hg] [facility] 03-05-2023 16:15-0500 Respiratory rate 18 /min [facility] 03-05-2023 16:15-0500 SaO2% (BldA) [Mass fraction] 96 % [facility] 03-05-2023 16:15-0500 Systolic blood pressure 108 mm[Hg] [facility] 03-05-2023 12:30-0500 Body height 170.18 cm [facility] 03-05-2023 12:30-0500 Body mass index (BMI) [Ratio] 37.9 kg/m2 [facility] 03-05-2023 12:30-0500 Body temperature 96.9 [degF] [facility] 03-05-2023 12:30-0500 Body weight 109.81 kg [facility] 03-05-2023 12:30-0500 Heart rate 74 /min [facility] 01-19-2023 14:05-0500 Body weight 113.26 kg Paul Monzon MD Work Phone: [facility] 01-19-2023 14:05-0500 Diastolic blood pressure 81 mm[Hg] Paul Monzon MD Work Phone: [facility] 01-19-2023 14:05-0500 Heart rate 70 /min Paul Moznon MD Work Phone: [facility] 01-19-2023 14:05-0500 Systolic blood pressure 120 mm[Hg] Paul Monzon MD Work Phone: [facility] 11-24-2022 13:00-0400 Body weight 113.4 kg Gunnar Guthrie MD Work Phone: [facility] 11-24-2022 13:00-0400 Diastolic blood pressure 78 mm[Hg] Gunnar Guthrie MD Work Phone: [facility] 11-24-2022 13:00-0400 Heart rate 63 /min Gunnar Guthrie MD Work Phone: [facility] 11-24-2022 13:00-0400 Respiratory rate 16 /min Gunnar Guthrie MD Work Phone: [facility] 11-24-2022 13:00-0400 Systolic blood pressure 117 mm[Hg] Gunnar Guthrie MD Work Phone: [facility] 05-14-2022 12:02-0400 Body height 170.18 cm [facility] 05-14-2022 12:02-0400 Body mass index (BMI) [Ratio] 38 kg/m2 [facility] 05-14-2022 12:02-0400 Body temperature 96.3 [degF] [facility] 05-14-2022 12:02-0400 Body weight 110.22 kg [facility] 05-14-2022 12:02-0400 Diastolic blood pressure 80 mm[Hg] [facility] 05-14-2022 12:02-0400 Heart rate 73 /min [facility] 05-14-2022 12:02-0400 Respiratory rate 18 /min [facility] 05-14-2022 12:02-0400 SaO2% (BldA) [Mass fraction] 98 % [facility] 05-14-2022 12:02-0400 Systolic blood pressure 127 mm[Hg] [facility] 04-21-2022 09:25-0400 Body weight 111.95 kg Vadim Mack MD Work Phone: [facility] 04-21-2022 09:25-0400 Diastolic blood pressure 82 mm[Hg] Vadim Mack MD Work Phone: [facility] 04-21-2022 09:25-0400 Heart rate 55 /min Vadim Mack MD Work Phone: [facility] 04-21-2022 09:25-0400 Respiratory rate 16 /min Vadim Mack MD Work Phone: [facility] 04-21-2022 09:25-0400 Systolic blood pressure 131 mm[Hg] Vadim Mack MD Work Phone: [facility] 03-30-2022 15:21-0500 Body temperature 98.1 [degF] NA Paratore DO Work Phone: [facility] 03-30-2022 15:21-0500 Diastolic blood pressure 87 mm[Hg] NA Paratore DO Work Phone: [facility] 03-30-2022 15:21-0500 Heart rate 78 /min NA Paratore DO Work Phone: [facility] 03-30-2022 15:21-0500 Respiratory rate 18 /min NA Paratore DO Work Phone: [facility] 03-30-2022 15:21-0500 SaO2% (BldA) [Mass fraction] 97 % NA Paratore DO Work Phone: [facility] 03-30-2022 15:21-0500 Systolic blood pressure 137 mm[Hg] NA Paratore DO Work Phone: [facility] 03-25-2022 14:54-0500 Body weight 111.13 kg Paul Monzon MD Work Phone: [facility] 03-25-2022 14:54-0500 Diastolic blood pressure 78 mm[Hg] Paul Monzon MD Work Phone: [facility] 03-25-2022 14:54-0500 Heart rate 61 /min Paul Monzon MD Work Phone: [facility] 03-25-2022 14:54-0500 Systolic blood pressure 118 mm[Hg] Paul Monzon MD Work Phone: [facility] 03-24-2022 14:58-0500 Body temperature 97.59 [degF] Annette Quintana MD Work Phone: [facility] 03-24-2022 14:58-0500 Body weight 110.22 kg Annette Quintana MD Work Phone: [facility] 03-24-2022 14:58-0500 Diastolic blood pressure 71 mm[Hg] Annette Quintana MD Work Phone: [facility] 03-24-2022 14:58-0500 Heart rate 49 /min Annette Quintana MD Work Phone: [facility] 03-24-2022 14:58-0500 Respiratory rate 14 /min Annette Quintana MD Work Phone: [facility] 03-24-2022 14:58-0500 Systolic blood pressure 132 mm[Hg] Annette Quintana MD Work Phone: [facility] 03-05-2022 11:41-0500 Body height 170.2 cm Paige [place] PA-C Work Phone: [facility] 03-05-2022 11:41-0500 Body temperature 96.4 [degF] Paige Davy PA-C Work Phone: [facility] 03-05-2022 11:41-0500 Body weight 111.68 kg Paige Davy PA-C Work Phone: [facility] 03-05-2022 11:41-0500 Diastolic blood pressure 82 mm[Hg] Paige [place] PA-C Work Phone: [facility] 03-05-2022 11:41-0500 Heart rate 64 /min Paige [place] PA-C Work Phone: [facility] 03-05-2022 11:41-0500 SaO2% (BldA) [Mass fraction] 94 % Paige Davy PA-C Work Phone: [facility] 03-05-2022 11:41-0500 Systolic blood pressure 133 mm[Hg] Paige Davy PA-C Work Phone: [facility] 03-05-2022 09:19-0500 Body temperature 96.69 [degF] Latoya Avila LANCE CREWMEMBER/MLRS SERGEANT.VOCAL PERFORMER Work Phone: [facility] 03-05-2022 09:19-0500 Body weight 111.22 kg Latoya Avila LANCE CREWMEMBER/MLRS SERGEANT.VOCAL PERFORMER Work Phone: [facility] 03-05-2022 09:19-0500 Diastolic blood pressure 71 mm[Hg] Latoya Avila LANCE CREWMEMBER/MLRS SERGEANT.VOCAL PERFORMER Work Phone: [facility] 03-05-2022 09:19-0500 Heart rate 81 /min Latoya Avila LANCE CREWMEMBER/MLRS SERGEANT.VOCAL PERFORMER Work Phone: [facility] 03-05-2022 09:19-0500 Respiratory rate 16 /min Latoya Avila LANCE CREWMEMBER/MLRS SERGEANT.VOCAL PERFORMER Work Phone: [facility] 03-05-2022 09:19-0500 Systolic blood pressure 108 mm[Hg] Latoya Avila LANCE CREWMEMBER/MLRS SERGEANT.VOCAL PERFORMER Work Phone: [facility] 06-16-2021 21:07-0400 Heart rate 87 /min [facility] Work Phone: 06-16-2021 21:07-0400 Respiratory rate 15 /min [facility] Work Phone: 06-16-2021 21:07-0400 SaO2% (BldA) [Mass fraction] 98 % [facility] Work Phone: 06-16-2021 19:09-0400 Body height 170.18 cm [facility] Work Phone: 06-16-2021 19:09-0400 Body mass index (BMI) [Ratio] 37.5 kg/m2 [facility] Work Phone: 06-16-2021 19:09-0400 Body temperature 95.4 [degF] [facility] Work Phone: 06-16-2021 19:09-0400 Body weight 108.86 kg [facility] Work Phone: 06-16-2021 19:09-0400 Diastolic blood pressure 90 mm[Hg] [facility] Work Phone: 06-16-2021 19:09-0400 Systolic blood pressure 121 mm[Hg] [facility] Work Phone: Encounters Encounter Date Encounter Type Care Provider Facility Start: 11-05-2024 End: 11-05-2024 alexa MACK Facility:[facility] Start: 10-22-2024 End: 10-23-2024 Mary Beth Hairston LANCE CREWMEMBER/MLRS SERGEANT.VOCAL PERFORMER [facility] Comment on above: Refill Request Start: 09-29-2024 End: 10-01-2024 Refill Junior Renee PA-C Work Phone: [facility] Comment on above: Refill Request Start: 09-05-2024 End: 09-05-2024 E-mail encounter from caregiver Torrie Howard [facility] Work Phone: [facility] Start: 09-05-2024 End: 09-05-2024 ambulatory PAZ C SHEETS Facility:[facility] Start: 09-05-2024 End: 09-05-2024 Patient encounter procedure Torrie Howard [facility] Work Phone: [facility] Comment on above: Diabetes visit today Type 2 diabetes elin itus with hyperglycemia, without long-term current use of insulin (HCC) (Primary Dx) Start: 09-05-2024 End: 09-05-2024 Telemedicine consultation with patient Torrie Howard [facility] Work Phone: [facility] Start: 08-27-2024 ambulatory PAZ C SHEETS Facil ity:[facility] Start: 08-27-2024 End: 08-27-2024 Subsequent hospital visit by physician Screen Mammo [facility] Comment on above: Breast cancer screen ing by mammogram [Z12.31] Start: 08-27-2024 End: 08-27-2024 Patient encounter procedure Alli Aguirre APRN.CNP Work Phone: [facility] Comment on above: Type 2 diabetes elin itus without complication, with long-term current use of insulin (HCC) (Primary Dx); Left hip pain; Left sided sciatica; Screening for prostate cancer; Breast cancer screening by mammogram; Bilateral impacted cerumen; Gender dysphoria Start: 08-27-2024 End: 08-27-2024 ambulatory ALLI AGUIRRE Facility:[facility] Start: 08-09-2024 End: 08-09-2024 Refill Gunnar Guthrie MD Work Phone: [facility] Comment on above: Refill Request Start: 08-08-2024 End: 08-08-[address] Gus Juarez MD -[facility] Work Phone: Start: 08-08-2024 End: 08-08-[address] [facility] Start: 06-04-2024 End: 06-04-2024 ambulatory PAZ LUGO Facility:[facility] Start: 05-24-2024 End: 05-25-2024 ambulatory Paz Lugo DO Work Phone: [facility] Comment on above: Isai Refill Request Start: 05-21-2024 End: 05-21-2024 Telephone encounter Ghislaine Brown MD Work Phone: [facility] Comment on above: Insurance Authorizat ion (semaglutide (OZEMPIC) 0.25 mg or 0.5 mg (2 mg/3 mL) pen) Start: 05-18-2024 End: 05-18-2024 ambulatory Ghislaine Brown MD Work Phone: [facility] Comment on above: Type 2 diabetes elin itus with diabetic neuropathy, with long- term current use of insulin (HCC) (Primary Dx); Hepatic steatosis; Primary hypertension; BE (obstructive sleep apnea); Typical atrial flutter (HCC); BMI (body mass index), pediatric, 5% to less than 85% for age; BMI 38.0-38.9,adult Start: 05-18-2024 End: 05-18-2024 Telemedicine consultation with patient Ghislaine Brown MD Work Phone: [facility] [place] Start: 05-18-2024 End: 05-18-2024 Telephone encounter Ghislaine Brown MD Work Phone: [facility] Start: 05-08-2024 End: 05-08-2024 Refill Junior Renee PA-C Work Phone: [facility] Comment on above: Refill Request Start: 04-30-2024 End: 04-30-2024 ambulatory LATOYA AVILA Facility:[facility] Start: 04-30-2024 End: 04-30-2024 Patient encounter procedure Torrie Howard [facility] Work Phone: [facility] Comment on above: Type 2 diabetes elin itus with diabetic neuropathy, with long- term current use of insulin (HCC) (Primary Dx) Start: 04-30-2024 End: 04-30-2024 Telemedicine consultation with patient Torrie Howard [facility] Work Phone: [facility] Start: 04-23-2024 End: 04-23-2024 Telephone encounter Torrie Howard [facility] Work Phone: [facility] Start: 04-11-2024 End: 04-11-2024 ambulatory Torrie Howard [facility] Work Phone: [facility] Start: 04-11-2024 End: 04-11-2024 Patient encounter procedure Torrie Howard [facility] Work Phone: [facility] Comment on above: Isai Start: 03-26-2024 End: 03-26-2024 [facility] Facility:[facility] Start: 03-26-2024 End: 03-26-2024 Patient encounter procedure Torrie Howard [facility] Work Phone: [facility] Comment on above: Type 2 diabetes elin itus with diabetic neuropathy, with long- term current use of insulin (HCC) (Primary Dx) Start: 03-26-2024 End: 03-26-2024 Telemedicine consultation with patient Torrie Howard [facility] Work Phone: [facility] Start: 03-24-2024 End: 03-24-2024 Letter encounter Kell Darwin Work Phone: [facility] Start: 03-01-2024 End: 03-01-2024 Patient encounter procedure Paz Lugo DO Work Phone: [facility] Comment on above: Flores's palsy (Primar y Dx); Primary hypertension; Mixed hyperlipidemia; Transgender woman on hormone therapy; Obesity, Class II, BMI 35-39.9 Start: 03-01-2024 End: 03-01-2024 ambulatory [facility]Z LU[facility] Start: 02-23-2024 End: 02-23-2024 Emergency department patient visit Cristian Murray Facility:[facility] Start: 02-16-2024 End: 02-16-2024 Refill Gunnar Guthrie MD Work Phone: [facility] Comment on above: Refill Request Start: 02-06-2024 End: 02-06-2024 Refill Gunnar Guthrie MD Work Phone: [facility] Comment on above: Refill Request Start: 01-30-2024 End: 01-30-2024 Refill Umm Hairston APRN.CNP Work Phone: [facility] Comment on above: Refill Request Start: 01-09-2024 End: 01-09-2024 Refill Junior Renee PA-C Work Phone: [facility] Comment on above: Refill Request Start: 12-26-2023 End: 12-26-2023 [facility] Facility:[facility] Start: 12-26-2023 End: 12-26-2023 Patient encounter procedure Torrie Howard [facility] Work Phone: [facility] Comment on above: Type 2 diabetes elin itus with diabetic neuropathy, with long- term current use of insulin (HCC) (Primary Dx) Start: 12-26-2023 End: 12-26-2023 Telemedicine consultation with patient Torrie Howard [facility] Work Phone: [facility] Start: 12-24-2023 End: 12-24-2023 Letter encounter Kell Granados Work Phone: [facility] Start: 12-19-2023 End: 12-19-2023 [facility] Facility:[facility] Start: 12-19-2023 End: 12-19-2023 Patient encounter procedure Abigail Cervantes OD Work Phone: Ophthalmology Comment on above: Type 2 diabetes elin itus without retinopathy (HCC) (Primary Dx); Hypermetropia, bilateral; Regular astigmatism of both eyes; Presbyopia Start: 12-12-2023 End: 12-12-2023 Refill Bobby Bentley MD Work Phone: [facility] [place] Comment on above: Refill Request Type 2 diabetes elin itus with diabetic neuropathy, with long-term current use of insulin (HCC) (Primary Dx) Start: 12-07-2023 End: 12-07-2023 E-mail encounter from caregiver Torrie Howard [facility] Work Phone: [facility] Start: 12-07-2023 End: 12-07-2023 Patient encounter procedure Torrie Howard [facility] Work Phone: [facility] Comment on above: Results Start: 12-06-2023 End: 12-06-2023 ambulatory GUNNAR GUTHRIE Facility:[facility] Start: 11-17-2023 End: 11-21-2023 Refill Gunnar Guthrie MD Work Phone: [facility] Comment on above: Refill Request Isai Graham Start: 11-16-2023 End: 11-16-[address] [facility] Start: 11-16-2023 End: 11-16-2023 Patient encounter procedure Torrie Howard [facility] Work Phone: [facility] Comment on above: Type 2 diabetes elin itus with diabetic neuropathy, with long- term current use of insulin (HCC) (Primary Dx) Start: 11-16-2023 End: 11-16-2023 Telemedicine consultation with patient Torrie Howard [facility] Work Phone: [facility] Start: 11-11-2023 End: 11-11-2023 Telephone encounter Umm Hairston APRN.VOCAL PERFORMER Work Phone: [facility] Comment on above: Results (Cholesterol ) Start: 11-10-2023 End: 11-10-2023 Refill Umm Hairston APRN.VOCAL PERFORMER Work Phone: [facility] Comment on above: Refill Request Start: 11-09-2023 End: 11-10-2023 ambulatory Torrie Howard [facility] Work Phone: [facility] Start: 11-09-2023 End: 11-10-2023 Patient encounter procedure Torrie Howard [facility] Work Phone: [facility] Comment on above: Isai Graham Start: 10-10-2023 End: 10-11-2023 Refill Bobby Bentley MD Work Phone: [facility] Comment on above: Refill Request Start: 09-17-2023 Refill Bobby Montilla Work Phone: [facility] Comment on above: Refill Request Start: 08-22-2023 E-mail encounter elenita paulino caregiver Torrie Howard [facility] Work Phone: [facility] Start: 08-22-2023 Patient encounter procedure Torrie Howard [facility] Work Phone: [facility] Comment on above: Diabetes Start: 07-20-2023 ambulatory Umm Hairston APRN.VOCAL PERFORMER Work Phone: [facility] Comment on above: Cholesterol Start: 07-20-2023 E-mail encounter elenita paulino caregiver Ivanolamide Yovanny NDIAYE.VOCAL PERFORMER Work Phone: [facility] Start: 07-20-2023 Telephone encounter Umm white APRN.VOCAL PERFORMER Work Phone: [facility] Comment on above: Results (Cholesterol ) Start: 07-13-2023 End: 07-13-2023 Telemedicine consultation with patient Torrie Howard [facility] Work Phone: [facility] Start: 07-13-2023 ambulatory Torrie Howard [facility] Work Phone: [facility] Start: 07-13-2023 End: 07-13-2023 Patient encounter procedure Torrie Howard [facility] Work Phone: [facility] Comment on above: Type 2 diabetes elin itus with diabetic neuropathy, with long- term current use of insulin (HCC) (Primary Dx) Isai Graham Start: 06-27-2023 Telephone encounter Torrie rosa [facility] Work Phone: [facility] Comment on above: Missed Appointment Start: 05-24-2023 End: 05-24-2023 ambulatory Umm Hairston APRN.VOCAL PERFORMER Work Phone: [facility]ocrinology [facility] Comment on above: Type 2 diabetes elin itus with diabetic neuropathy, with long- term current use of insulin (HCC) (Primary Dx); Obesity, Class II, BMI 35-39.9; Gender dysphoria; Hepatic steatosis; Primary hypertension; Mixed hyperlipidemia; Typical atrial flutter (HCC); BE (obstructive sleep apnea); Medication management; Dietary counseling; Exercise counseling Start: 05-24-2023 End: 05-24-2023 Telemedicine consultation with patient Umm Hairston ZELDA.VOCAL PERFORMER Work Phone: [facility] Start: 05-16-2023 Refill Bobby Montilla Work Phone: [facility] [place] Comment on above: Refill Request Start: 05-12-2023 Refill Ghislaine rBown MD Work Phone: Endocrinology [place] Comment on above: Refill Request Start: 04-15-2023 Refill Gunnar Guthrie MD Work Phone: [facility] Comment on above: Refill Request Start: 04-15-2023 Refill Ghislaine Brown MD Work Phone: [facility] Comment on above: Refill Request Start: 04-13-2023 ambulatory Torrie Howard [facility] Work Phone: [facility] Comment on above: Dexcom Start: 04-13-2023 E-mail encounter fro m caregiver Torrie Howard [facility] Work Phone: [facility]UTIST[facility] Start: 04-04-2023 End: 04-04-2023 ambulatory Torrie Howard [facility] Work Phone: [facility] Comment on above: Inadequately control led diabetes mellitus (HCC) (Primary Dx) Start: 04-04-2023 End: 04-04-2023 Telemedicine consultation with patient Torrie Howard [facility] Work Phone: [facility] Start: 03-23-2023 End: 03-23-2023 ambulatory Bobby Bentley MD Work Phone: Internal Medicine [place] Comment on above: Gender dysphoria; Encounter for long-term (current) use of high-risk medication Start: 03-23-2023 End: 03-23-2023 Telemedicine consultation with patient Bobby Bentley MD Work Phone: [facility] Start: 03-22-2023 End: 03-22-2023 Patient encounter procedure Ghislaine Brown MD Work Phone: Endocrinology [place] Comment on above: Type 2 diabetes elin itus with diabetic neuropathy, with long- term current use of insulin (HCC) (Primary Dx); Primary hypertension; Obesity, Class II, BMI 35-39.9; Hepatic steatosis; BMI 37.0-37.9, adult; Mixed hyperlipidemia; Typical atrial flutter (HCC); Gender dysphoria; BE (obstructive sleep apnea) Start: 03-16-2023 E-mail encounter fro m caregiver Torrie Howard [facility] Work Phone: [facility] Start: 03-16-2023 Nutrition therapy Torrie Howard [facility] Work Phone: [facility] Comment on above: Nutrition informatio n Start: 03-16-2023 End: 03-16-2023 ambulatory Torrie Howard [facility] Work Phone: [facility] Comment on above: Inadequately control led diabetes mellitus (HCC) (Primary Dx); Medication management; Type 2 diabetes mellitus with diabetic neuropathy, with long-term current use of insulin (HCC) Start: 03-16-2023 End: 03-16-2023 Telemedicine consultation with patient Torrie Howard [facility] Start: 03-05-2023 End: 03-05-2023 Emergency department patient visit [facility] Work Phone: Start: 01-19-2023 End: 01-19-2023 Patient encounter procedure Paul Rojas MD Work Phone: Cardiology Comment on above: Typical atrial flutt er (HCC) (Primary Dx); Mixed hyperlipidemia; Primary hypertension; Type 2 diabetes mellitus with diabetic neuropathy, with long-term current use of insulin (HCC); Abnormal electrocardiogram; Fatty liver Start: 01-02-2023 Refill Annette Montilla Work Phone: [facility] Comment on above: Refill Request Start: 12-14-2022 End: 12-14-2022 Patient encounter procedure Abigail Cervantes OD Work Phone: Ophthalmology Comment on above: Type 2 diabetes elin itus without retinopathy (HCC) (Primary Dx); Hypermetropia, bilateral; Regular astigmatism of both eyes; Presbyopia Start: 12-10-2022 Documentation procedure Mammography Coordinator [facility] Start: 12-10-2022 Letter encounter Mammography Coordinator [facility] Start: 12-09-2022 End: 12-09-2022 Subsequent hospital visit by physician Screen Mammo [facility] Comment on above: Encounter for screen ing mammogram for malignant neoplasm of breast [Z12.31] Start: 11-24-2022 End: 11-24-2022 Office outpatient visit 25 minutes Gunnar Guthrie MD Work Phone: [facility] Comment on above: Type 2 diabetes elin itus with diabetic neuropathy, with long- term current use of insulin (HCC) (Primary Dx); Primary hypertension; Gender dysphoria; Encounter for long-term (current) use of high-risk medication; Obesity, Class II, BMI 35-39.9; Hepatic steatosis; Encounter for screening mammogram for malignant neoplasm of breast Start: 09-15-2022 Refill Gunnar Guthrie MD Work Phone: [facility] Comment on above: Refill Request Medication Problem Start: 09-09-2022 ambulatory Violeta Beltran LPN [facility] Start: 07-19-2022 Refill Latoya ventura LANCE CREWMEMBER/MLRS SERGEANT.VOCAL PERFORMER Work Phone: [facility] Comment on above: Refill Request Start: 07-14-2022 End: 07-14-2022 ambulatory Latoya Avila LANCE CREWMEMBER/MLRS SERGEANT.VOCAL PERFORMER Work Phone: [facility] Comment on above: Type 2 diabetes elin itus with diabetic neuropathy, with long- term current use of insulin (HCC) (Primary Dx); Gender dysphoria; Encounter for long-term (current) use of high-risk medication; Primary hypertension; Atrial flutter, unspecified type (HCC); Hepatic steatosis Start: 07-14-2022 End: 07-14-2022 Telemedicine consultation with patient Latoya Avila APRN.VOCAL PERFORMER Work Phone: [facility] Start: 06-20-2022 Letter encounter Kell Granados Work Phone: [facility] Start: 05-14-2022 End: 05-14-2022 Emergency department patient visit [facility] Start: 05-12-2022 Refill Gunnar Guthrie MD Work Phone: [facility] Comment on above: Refill Request Start: 05-11-2022 Refill Gunnar Guthrie MD Work Phone: [facility] Comment on above: Refill Request Start: 05-06-2022 Refill Annette Montilla Work Phone: [facility] Comment on above: Refill Request Start: 04-21-2022 End: 04-21-2022 Patient encounter procedure Vadim Mack MD Work Phone: [facility] Comment on above: Type 2 diabetes elin itus with hyperglycemia, without long-term current use of insulin (HCC) (Primary Dx); Hepatic steatosis Start: 04-06-2022 End: 04-06-2022 ambulatory Paige Bhatti PA-C Work Phone: Gastroenterology Comment on above: Hepatic steatosis (P rimary Dx); Elevated liver enzymes; Class 3 severe obesity due to excess calories without serious comorbidity in adult, unspecified BMI (HCC); HANK positive Start: 04-06-2022 End: 04-06-2022 Telemedicine consultation with patient Paige Bhatti PA-C Work Phone: [facility] Start: 03-30-2022 End: 03-30-2022 Subsequent hospital visit by physician Roldan Min DO Work Phone: [id number] Comment on above: Elevated liver enzym es [R74.8] Start: 03-29-2022 E-mail encounter elenita paulino caregiver [facility] Provider [facility] Start: 03-29-2022 Patient encounter procedure [facility] Provider [facility] [place] Comment on above: Appointment Reschedu ling Start: 03-25-2022 End: 03-25-2022 Subsequent hospital visit by physician Mary [place] Work Phone: Radiology Comment on above: Atrial flutter, unsp ecified type (HCC) [I48.92] Start: 03-25-2022 End: 03-25-2022 Patient encounter procedure Paul Rojas MD Work Phone: Cardiology Comment on above: Atrial flutter, unsp ecified type (HCC) (Primary Dx); Mixed hyperlipidemia; Primary hypertension; Type 2 diabetes mellitus with diabetic neuropathy, with long-term current use of insulin (HCC); Hepatic steatosis Start: 03-24-2022 End: 03-24-2022 Patient encounter procedure Annette Quintana MD Work Phone: Internal Medicine [place] Comment on above: Type 2 diabetes elin itus with diabetic neuropathy, with long- term current use of insulin (HCC) (Primary Dx); Atrial flutter, unspecified type (HCC); Obesity, Class II, BMI 35-39.9; Gonadal dysgenesis, 46, XY Start: 03-24-2022 Telephone encounter Charmaine Calderon RN Cardiology Comment on above: Appointment Patient Update Start: 03-23-2022 [facility] Comment on above: Elevated liver enzym es (Primary Dx) Start: 03-11-2022 Telephone encounter Paige durbin PA-C Work Phone: Gastroenterology Comment on above: Results Start: 03-11-2022 End: 03-11-2022 Subsequent hospital visit by physician [facility] Work Phone: Radiology Comment on above: Hepatic steatosis [K 76.0] Start: 03-09-2022 Orders Only Paige Miles Work Phone: Gastroenterology Comment on above: Hepatic steatosis (P rimary Dx); Elevated liver enzymes; Positive HANK (antinuclear antibody) Start: 03-05-2022 End: 03-05-2022 Patient encounter procedure Latoya Avila APRN.CNP Work Phone: [facility] Comment on above: Gender dysphoria (Pr imary Dx); Type 2 diabetes mellitus with hyperglycemia, without long-term current use of insulin (HCC); Mixed hyperlipidemia; Class 2 severe obesity with serious comorbidity and body mass index (BMI) of 38.0 to 38.9 in adult, unspecified obesity type (HCC); Elevated LFTs; Hepatic steatosis; Primary hypertension; Statin intolerance; Encounter for long-term (current) use of high-risk medication; Depression screening Hepatic steatosis (P rimary Dx); Elevated liver enzymes; Hepatic fibrosis Elevated ferritin (P rimary Dx); Elevated liver enzymes Elevated liver enzym es (Primary Dx) Start: 03-05-2022 End: 03-05-2022 ambulatory Hepatology A5 Work Phone: Gastroenterology Start: 03-05-2022 End: 03-05-2022 Patient encounter procedure Paige Bhatti PA-C Work Phone: Gastroenterology Comment on above: Elevated liver enzym es (Primary Dx); Hepatic steatosis Start: 02-11-2022 Refill Latoya Dimm ock ZELDA.DEYA Work Phone: [facility] Comment on above: Refill Request Start: 02-11-2022 Refill Latoya Dimm ock LANCE CREWMEMBER/MLRS SERGEANT.DEYA Work Phone: [facility] Comment on above: Refill Request Start: 11-30-2021 Telephone encounter Latoya Avila APRN.CNP Work Phone: [facility] Comment on above: Orders (cologuard) Start: 11-12-2021 Telephone encounter Shweta Isabel ch) Sally Work Phone: [facility] Comment on above: Research Start: 11-10-2021 Telephone encounter Shweta Isabel chChaitanya Zavala Work Phone: [facility] Comment on above: Research Start: 10-11-2021 Refill Gunnar Guthrie MD Work Phone: [facility] Comment on above: Refill Request Start: 09-28-2021 Telephone encounter Latoya Avila APRN.VOCAL PERFORMER Work Phone: [facility] Comment on above: Orders (cologuard) Start: 09-04-2021 ambulatory Latoya Shaikhm ock LANCE CREWMEMBER/MLRS SERGEANT.VOCAL PERFORMER Work Phone: [facility] Comment on above: your cholesterol Start: 09-04-2021 E-mail encounter elenita m caregiver Latoya Avila APRN.VOCAL PERFORMER Work Phone: [facility] Start: 08-08-2021 Refill Latoya Mantilla ock LANCE CREWMEMBER/MLRS SERGEANT.VOCAL PERFORMER Work Phone: [facility] Comment on above: Refill Request Start: 06-23-2021 Telephone encounter Manpreet jesus PA-C Work Phone: [facility] Comment on above: Electronic Communica tion Start: 06-18-2021 ambulatory Latoya Mantilla ock LANCE CREWMEMBER/MLRS SERGEANT.VOCAL PERFORMER Work Phone: [facility] Comment on above: Latoya Avila Start: 06-16-2021 End: 06-16-2021 Emergency department patient visit [facility] Start: 05-15-2021 Telephone encounter Latoya Avila APRN.VOCAL PERFORMER Work Phone: [facility] Comment on above: Results Start: 05-14-2021 End: 05-14-2021 Subsequent hospital visit by physician [facility] Work Phone: Radiology Comment on above: Elevated LFTs [R79.8 9] Start: 05-11-2021 Telephone encounter Latoya Avila APRN.VOCAL PERFORMER Work Phone: [facility] Comment on above: Lab Orders Start: 05-08-2021 End: 05-08-2021 ambulatory Latoya Dimerniealbertina CHAYA Work Phone: Internal Medicine [place] Comment on above: Gender dysphoria (Pr imary Dx); Encounter for long-term (current) use of high-risk medication; Elevated LFTs; Prediabetes; Leg cramping; Nocturia Start: 05-08-2021 End: 05-08-2021 Telemedicine consultation with patient Latoya Avila ZELDAEmekaDEYA Work Phone: [facility] Start: 05-06-2021 Telephone encounter Latoya Avila CHAYA Work Phone: Internal Medicine [place] Comment on above: Results Start: 07-29-2017 End: 07-29-2017 ambulatory UNKNOWN PROVIDER Facility:[facility] Procedures Date Procedure Procedure Detail Performing Clinician Start: 08-27-2024 Urine albumin quantitative Alli Aguirre APRN.CNP Work Phone: Start: 08-27-2024 Hemoglobin A1c/Hemoglobin.total in Blood Alli Aguirre APRN.VOCAL PERFORMER Work Phone: Start: 03-22-2023 Hemoglobin A1c/Hemoglobin.total in Blood Ghislaine Brown MD Work Phone: Start: 12-09-2022 Screening mammograph y bi 2-view breast inc cad Gunnar Guthrie MD Work Phone: Start: 05-14-2022 Computed tomography of abdomen and pelvis with intravenous contrast Start: 03-30-2022 Gluc bld gluc mntr d ev cleared fda spec home use D A Paratore DO Work Phone: Start: 03-25-2022 Radiologic exam ches t 2 views Paul Rojas MD Work Phone: Start: 03-11-2022 Us abdominal real ti me w/image limited Paige MCCLELLAND-C Work Phone: Start: 03-05-2022 Liver elastography w /o imag w/i&r Paige MCCLELLAND-C Work Phone: Start: 05-14-2021 Us abdominal real ti me w/image limited Latoya Avila APRN.CNP Work Phone: Start: 05-08-2021 Adult depression scr eening assessment Latoya Avila APRN.DEYA Work Phone: Start: 07-10-2020 Mammography Latoya Avila APRN.DEYA Work Phone: Start: 04-12-2020 Adult depression scr eening assessment Latoya Avila APRN.VOCAL PERFORMER Work Phone: Lactoferrin measurement Plan of Treatment Date Care Activity Detail Author Start: 08-18-2028 Tetanus vaccination Tetanus (Td or Tdap) Booster [facility] Start: 08-18-2028 Urine microalbumin profile [facility] Start: 08-27-2025 Annual PCP Team Chronic Disease Visit Annual PCP Team Chronic Disease Visit [facility] Start: 08-27-2025 Anxiety Screening Anxiety Screening [facility] Comment on above: Postponed from 1986 (Declined at t his time) Start: 08-27-2025 Hepatitis B screening Urine Albumin:Creatinine Ratio [facility] Start: 04-14-2025 LIPID SCREEN LIPID SCREEN [facility] Start: 03-07-2025 End: 03-07-2025 Patient encounter procedure 03/07/2025 1:00 PM EST Office Visit [facility] [place] [address] [place] [id number] [place]im [place] [id number] [place] [address]. [place] [address] M2F Gender-affirming hormone therapy. [facility] [place] Comment on above: M2F Gender-affirming hormone therapy. Start: 03-01-2025 Annual PCP Team Chronic Disease Visit Annual PCP Team Chronic Disease Visit [facility] Start: 03-01-2025 BP Controlled (<130/80) BP Controlled (<130/80) [facility] Start: 03-01-2025 Covid-19 Vaccine () Covid-19 Vaccine () [facility] Comment on above: Postponed from 10/09/2023 (Declined at t his time) Start: 03-01-2025 Hepatitis B Vaccine (1 of 3 - 19+ 3-dose series) Hepatitis B Vaccine (1 of 3 - 19+ 3-dose series) [facility] Comment on above: Postponed from 1987 (Declined at t his time) Start: 03-01-2025 Pneumococcal Vaccine: 50+ (1 of 2 - PCV) Pneumococcal Vaccine: 50+ (1 of 2 - PCV) [facility] Comment on above: Postponed from 1987 (Declined at t his time) Start: 03-01-2025 Screening for malignant neoplasm of colon Colorectal Cancer Screening [facility] Comment on above: Postponed from 2013 (Declined at t his time) Start: 03-01-2025 Shingrix Vaccine (1 of 2) Shingrix Vaccine (1 of 2) [facility] Comment on above: Postponed from 2018 (Declined at t his time) Start: 02-27-2025 Hemoglobin A1c measurement HbA1C [facility] Start: 12-20-2024 End: 12-20-2024 Patient encounter procedure 12/20/2024 9:45 AM EST Office Visit [facility] [address] [place] [address] Abigail Cervantes, OD [address] [place] [address] 1 YR F/U for diabetic eye exam. Ophthalmology Comment on above: 1 YR F/U for diabetic eye exam. Start: 12-18-2024 Glaucoma screening Dilated Retinal Exam [facility] Start: 12-05-2024 Hepatitis B surface antibody level LDL Cholesterol [facility] Start: 12-04-2024 End: 12-04-2024 Patient encounter procedure 12/04/2024 12:20 PM EDT Office Visit Endocrinology [place] [address] [place] [id number] [place] [address] [place] [address] Please feel free to call me for any questions. Endocrinology [place] Comment on above: Please feel free to call me for any ques tions. Start: 11-26-2024 End: 11-26-2024 Patient encounter procedure 11/26/2024 10:20 AM EDT Office Visit [facility] [address] [place] [address] Paz Lugo DO [address] [place] [address] 3 month follow up diabetes [facility] Comment on above: 3 month follow up diabetes Start: 11-17-2024 Hemoglobin A1c measurement HbA1C [facility] Start: 11-09-2024 Hepatitis B surface antibody level LDL Cholesterol [facility] Start: 11-07-2024 Influenza vaccination Influenza Vaccine (#1) [facility] Start: 10-08-2024 Influenza [facility] Start: 10-01-2024 End: 12-31-2024 Estradiol (E2) [Mass/volume] in Serum or Plasma ESTRADIOL-17B BLD Lab Routine Encounter for long-term (current) use of high-risk medication Expected: 10/01/2024, Expires: 12/31/2024 [facility] Comment on above: Expected: 10/01/2024, Expires: Start: 10-01-2024 End: 12-31-2024 Testosterone [Mass/volume] in Serum or Plasma TESTOSTERONE, TOTAL BY IMMUNOASSAY (ADULT MALES, OR INDIVIDUALS ON TESTOSTERONE THERAPY) Lab Routine Encounter for long-term (current) use of high-risk medication Expected: 10/01/2024, Expires: 12/31/2024 [facility] Work Phone: Comment on above: Expected: 10/01/2024, Expires: Start: 09-05-2024 End: 09-05-2024 Patient encounter procedure 09/05/2024 10:00 AM EDT [facility] [address] [place] [address] Torrie Howard, Formerly [facility] [address] [place] [phone] DM f/up; Dexcom review [facility] Comment on above: DM f/up; Dexcom review Start: 08-27-2024 Depression Screening Depression Screening [facility] Comment on above: Postponed from 1986 (Declined at t his time) Start: 08-27-2024 End: 11-26-2024 PSA/PROSTATE SPECIFIC ANTIGEN SCREENING PSA/PROSTATE SPECIFIC ANTIGEN SCREENING Lab Routine Screening for prostate cancer Expected: 08/27/2024, Expires: 11/26/2024 [facility] Comment on above: Expected: 08/27/2024, Expires: Start: 08-27-2024 End: 08-27-2024 Patient encounter procedure 08/27/2024 9:20 AM EDT Office Visit [facility] [address] [place], [place] [id number] Alli Aguirre, LANCE CREWMEMBER/MLRS SERGEANT.VOCAL PERFORMER [address] [place], [place] [id number] EST CARE [facility] Comment on above: EST CARE Start: 08-08-2024 Evaluation of diagnostic study results [facility] Start: 08-06-2024 Influenza vaccination Influenza Vaccine (#1) [facility] Comment on above: Postponed from 10/09/2023 (Declined at t his time) Start: 07-18-2024 Hepatitis B surface antibody level LDL Cholesterol [facility] Start: 06-05-2024 Hemoglobin A1c measurement HbA1C [facility] Start: 06-04-2024 End: 06-04-2024 Patient encounter procedure 06/04/2024 11:00 AM EDT [facility] [address] [place] [address] Torrie Howard, Formerly [facility] [address] [place] [address] DM f/up; Dexcom review [facility] Comment on above: DM f/up; Dexcom review Start: 05-31-2024 End: 05-31-2024 Patient encounter procedure 05/31/2024 9:00 AM EDT Office Visit [facility] [address] [place] [address] Paz Lugo DO [address] [place] [address] Est. care [facility] Comment on above: Est. care Start: 05-18-2024 End: 05-18-2024 ambulatory 05/18/2024 3:20 PM EDT [facility] End[facility] [place] [address] [place] [phone] [place] [address] [place] [address] shout out 9:50 wgt [facility] [place] Comment on above: shout out 9:50 wgt Start: 05-18-2024 End: 08-17-2024 Comprehensive metabolic 2000 panel - Serum or Plasma [facility] Comment on above: Expected: 05/18/2024, Expires: Start: 05-18-2024 End: 08-17-[address] in Blood [facility] Work Phone: Comment on above: Expected: 05/18/2024, Expires: Start: 05-18-2024 End: 08-17-2024 Thyrotropin [Units/volume] in Serum or Plasma [facility] Comment on above: Expected: 05/18/2024, Expires: Start: 05-11-2024 DIABETES SCREEN DIABETES SCREEN [facility] Start: 04-30-2024 DIABETES SCREEN DIABETES SCREEN [facility] Start: 04-30-2024 End: 04-30-2024 Patient encounter procedure 04/30/2024 11:30 AM EDT [facility] [address] [place] [address] Torrie Howard, Formerly [facility] [address] [place] [phone] DM f/up; Dexcom review [facility] Comment on above: DM f/up; Dexcom review Start: 04-23-2024 End: 04-23-2024 Patient encounter procedure 04/23/2024 1:00 PM EDT [facility] [address] [facility] [place] [address] [place] [address] [place] [phone] DM f/up; Dexcom review [facility] Comment on above: DM f/up; Dexcom review Start: 04-11-2024 End: 04-11-2024 Patient encounter procedure 04/11/2024 11:00 AM EST Office Visit [facility] [place] [address] [place] [phone] [place] [address] [place] [address] Est care [facility] [place] Comment on above: Est care Start: 03-26-2024 End: 03-26-2024 Patient encounter procedure 03/26/2024 3:00 PM EST [facility] [address] [place] [address] Torrie Howard, [place] [address] [place] [phone] DM f/up; Dexcom review [facility] Comment on above: DM f/up; Dexcom review Start: 03-23-2024 Annual PCP Team Chronic Disease Visit Annual PCP Team Chronic Disease Visit [facility] Start: 03-22-2024 BP Controlled (<130/80) BP Controlled (<130/80) [facility] Start: 01-18-2024 Hemoglobin A1c measurement HbA1C [facility] Start: 12-26-2023 End: 12-26-2023 Patient encounter procedure 12/26/2023 3:00 PM EST [facility] [address] [place] [address] Torrie Howard, Formerly [facility] [address] [place] [phone] DM f/up; Dexcom review [facility] Comment on above: DM f/up; Dexcom review Start: 12-19-2023 End: 12-19-2023 Patient encounter procedure 12/19/2023 10:00 AM EST Office Visit [facility] [address] [place] [address] Abigail Cervantes, OD [address] [place] [address] diabetic eye exam [facility] Comment on above: diabetic eye exam Start: 12-15-2023 Glaucoma screening Dilated Retinal Exam [facility] Start: 12-15-2023 Hepatitis C antibody, confirmatory test Dilated Retinal Exam [facility] Start: 12-15-2023 End: 12-15-2023 Patient encounter procedure 12/15/2023 10:00 AM EST Office Visit [facility] [address] [place] [address] Abigail Cervantes, OD [address] [place] [address] diabetic eye exam [facility] Comment on above: diabetic eye exam Start: 12-12-2023 End: 12-12-2023 Patient encounter procedure 12/12/2023 3:00 PM EST [facility] [address] [place] [address] Torrie Howard, Formerly [facility] [address] [place] [phone] DM f/up; Dexcom review [facility] Comment on above: DM f/up; Dexcom review Start: 12-12-2023 End: 03-12-2024 Microalbumin/Creatinine [Mass Ratio] in Urine ALBUMIN/CREATININE RATIO, URINE Lab Routine Type 2 diabetes mellitus with diabetic neuropathy, with long-term current use of insulin (HCC) Expected: 12/12/2023, Expires: 03/12/2024 [facility] Work Phone: Comment on above: Expected: 12/12/2023, Expires: Start: 12-10-2023 Screening for malignant neoplasm of breast Mammogram Screening [facility] Start: 12-05-2023 End: 03-05-2024 Comprehensive metabolic 2000 panel - Serum or Plasma COMPREHENSIVE METABOLIC PANEL Lab Routine Type 2 diabetes mellitus with diabetic neuropathy, with long-term current use of insulin (HCC) Expected: 12/05/2023, Expires: 03/05/2024 [facility] Comment on above: Expected: 12/05/2023, Expires: Start: 12-05-2023 End: 03-05-2024 Hemoglobin A1c in Blood HEMOGLOBIN A1C Lab Routine Type 2 diabetes mellitus with diabetic neuropathy, with long-term current use of insulin (HCC) Expected: 12/05/2023, Expires: 03/05/2024 [facility] Work Phone: Comment on above: Expected: 12/05/2023, Expires: Start: 12-05-2023 End: 03-05-2024 LIPID PANEL, NONFASTING LIPID PANEL, NONFASTING Lab Routine Type 2 diabetes mellitus with diabetic neuropathy, with long-term current use of insulin (HCC) Expected: 12/05/2023, Expires: 03/05/2024 [facility] Comment on above: Expected: 12/05/2023, Expires: Start: 11-25-2023 Annual PCP Team Chronic Disease Visit Annual PCP Team Chronic Disease Visit [facility] Start: 11-25-2023 BP Controlled (<130/80) BP Controlled (<130/80) [facility] Start: 11-25-2023 Covid-19 Vaccine ( season) Covid-19 Vaccine () [facility] Comment on above: Postponed from 10/08/2022 (Declined at t his time) Start: 11-25-2023 Hepatitis B screening Urine Albumin:Creatinine Ratio [facility] Start: 11-25-2023 Pneumococcal vaccination [facility] Comment on above: Postponed from 1974 (Declined at t his time) Start: 11-16-2023 End: 11-16-2023 Patient encounter procedure 11/16/2023 3:00 PM EDT [facility] [address] [facility] [place] [address] Torrie Howard, Formerly [facility] [address] [place] [phone] DM f/up; Dexcom review Pharm [facility] Comment on above: DM f/up; Dexcom review Start: 10-27-2023 End: 01-26-2024 Comprehensive metabolic 2000 panel - Serum or Plasma COMPREHENSIVE METABOLIC PANEL Lab Routine Mixed hyperlipidemia Expected: 10/27/2023 (Approximate), Expires: 01/26/2024 [facility] Work Phone: Comment on above: Expected: 10/27/2023 (Approximate), Expi res: 01/26/2024 Start: 10-27-2023 End: 01-26-2024 Lipid 1996 panel - Serum or Plasma LIPID PANEL BASIC Lab Routine Mixed hyperlipidemia Expected: 10/27/2023 (Approximate), Expires: 01/26/2024 [facility] Comment on above: Expected: 10/27/2023 (Approximate), Expi res: 01/26/2024 Start: 10-27-2023 End: 10-27-2023 ambulatory 10/27/2023 11:00 AM EDT Results Only [facility] [address] [place] [address] [facility] Start: 10-18-2023 End: 10-18-2023 Patient encounter procedure 10/18/2023 9:40 AM EDT Office Visit [facility] [place] [address] [facility] [address] [place] [address] [place] [address] [place] [address] wgt [facility] [place] Comment on above: t Start: 10-09-2023 COVID-19 Vaccine ( season) COVID-19 Vaccine ( season) [facility] Start: 10-09-2023 Covid-19 Vaccine ( season) Covid-19 Vaccine ( season) [facility] Start: 10-09-2023 Covid-19 Vaccine ( season) Covid-19 Vaccine () [facility] Start: 10-09-2023 Influenza vaccination [facility] Start: 08-25-2023 End: 08-25-2023 ambulatory 08/25/2023 11:00 AM EDT [facility] Endocrin[facility] [place] [address] [place] [address] Yee Cornejo, LANCE CREWMEMBER/MLRS SERGEANT.VOCAL PERFORMER [address] [place] [address] [facility] Endocrinology [place] Comment on above: [facility] Start: 08-07-2023 Influenza vaccination Influenza Vaccine (#1) [facility] Comment on above: Postponed from 10/08/2022 (Declined at t his time) Start: 07-15-2023 ANNUAL PCP TEAM CHRONIC DISEASE VISIT ANNUAL PCP TEAM CHRONIC DISEASE VISIT [facility] Start: 07-13-2023 End: 07-13-2023 Patient encounter procedure 07/13/2023 3:30 PM EDT [facility] [address] [place], [place] [address] Torrie Howard, [facility] [address] [place] [phone] DM f/up; Dexcom review [facility] Comment on above: DM f/up; Dexcom review Start: 06-21-2023 End: 09-20-2023 Hemoglobin A1c in Blood HGB A1C Lab Routine Inadequately controlled diabetes mellitus (HCC) Expected: 06/21/2023, Expires: 09/20/2023 [facility] Work Phone: Comment on above: Expected: 06/21/2023, Expires: Start: 06-20-2023 Hemoglobin A1c measurement HbA1C [facility] Start: 05-24-2023 End: 08-23-2023 Lipid 1996 panel - Serum or Plasma LIPID PANEL BASIC Lab Routine Mixed hyperlipidemia Expected: 05/24/2023, Expires: 08/23/2023 [facility] Work Phone: Comment on above: Expected: 05/24/2023, Expires: 4 Start: 04-22-2023 ANNUAL PCP TEAM CHRONIC DISEASE VISIT ANNUAL PCP TEAM CHRONIC DISEASE VISIT [facility] Start: 03-25-2023 BP CONTROLLED (<130/80) BP CONTROLLED (<130/80) [facility] Start: 03-24-2023 ANNUAL PCP TEAM CHRONIC DISEASE VISIT ANNUAL PCP TEAM CHRONIC DISEASE VISIT [facility] Start: 03-23-2023 End: 06-22-2023 CBC panel - Blood by Automated count CBC Lab Routine Gender dysphoria Expected: 03/23/2023, Expires: 06/22/2023 [facility] Work Phone: Comment on above: Expected: 03/23/2023, Expires: 4 Start: 03-23-2023 End: 06-22-2023 Estradiol (E2) [Mass/volume] in Serum or Plasma ESTRADIOL-17B BLD Lab Routine Gender dysphoria Encounter for long-term (current) use of high-risk medication Expected: 03/23/2023, Expires: 06/22/2023 [facility] Work Phone: Comment on above: Expected: 03/23/2023, Expires: 4 Start: 03-23-2023 End: 06-22-2023 Testosterone [Mass/volume] in Serum or Plasma TESTOSTERONE TOTAL Lab Routine Gender dysphoria Encounter for long-term (current) use of high-risk medication Expected: 03/23/2023, Expires: 06/22/2023 [facility] Work Phone: Comment on above: Expected: 03/23/2023, Expires: Start: 2023 Prostate specific antigen measurement Prostate Cancer Screening Discussion [facility] Start: 03-05-2023 [facility] Start: 03-05-2023 ANNUAL PCP TEAM CHRONIC DISEASE VISIT ANNUAL PCP TEAM CHRONIC DISEASE VISIT [facility] Start: 02-23-2023 Hepatitis B surface antibody level LDL CHOLESTEROL [facility] Start: 02-07-2023 Behavioral Health Screening Behavioral Health Screening [facility] Start: 02-07-2023 Depression Assessment Depression Assessment [facility] Start: 01-21-2023 Hemoglobin A1c measurement HbA1C [facility] Start: 01-21-2023 Hemoglobin A1c/Hemoglobin.total in Blood HBA1C [facility] Start: 10-08-2022 Influenza vaccination [facility] Start: 09-01-2022 3 comp foot exam completed DIABETIC FOOT EXAM [facility] Start: 09-01-2022 ANNUAL PCP TEAM CHRONIC DISEASE VISIT ANNUAL PCP TEAM CHRONIC DISEASE VISIT [facility] Start: 09-01-2022 BP CONTROLLED (<130/80) BP CONTROLLED (<130/80) [facility] Start: 09-01-2022 COVID-19 VACCINE (3 - Booster for Pfizer series) COVID-19 VACCINE (3 - Booster for Pfizer series) [facility] Comment on above: Postponed from 03/17/2021 (Declined at t his time) Postponed from 12/10 (Declined at this time) Start: 09-01-2022 Diabetic foot examination Diabetic Foot Exam [facility] Start: 09-01-2022 Hepatitis B screening URINE ALBUMIN:CREATININE RATIO [facility] Start: 09-01-2022 Hepatitis B surface antibody level LDL CHOLESTEROL [facility] Start: 09-01-2022 PNEUMOCOCCAL (1 - PCV) PNEUMOCOCCAL (1 - PCV) [facility] Comment on above: Postponed from 1974 (Declined at t his time) Start: 08-23-2022 Hemoglobin A1c/Hemoglobin.total in Blood HBA1C [facility] Start: 08-06-2022 Influenza vaccination INFLUENZA (#1) [facility] Comment on above: Postponed from 10/08/2021 (Declined at t his time) Start: 07-14-2022 End: 09-13-2022 CBC panel - Blood by Automated count CBC Lab Routine Gender dysphoria Encounter for long-term (current) use of high-risk medication Expected: 07/14/2022, Expires: 09/13/2022 [facility] Work Phone: Comment on above: Expected: 07/14/2022, Expires: Start: 07-14-2022 End: 09-13-2022 Comprehensive metabolic 2000 panel - Serum or Plasma COMP METABOLIC PANEL Lab Routine Gender dysphoria Encounter for long-term (current) use of high-risk medication Expected: 07/14/2022, Expires: 09/13/2022 [facility] Work Phone: Comment on above: Expected: 07/14/2022, Expires: Start: 07-14-2022 End: 09-13-2022 Estradiol (E2) [Mass/volume] in Serum or Plasma ESTRADIOL-17B BLD Lab Routine Gender dysphoria Encounter for long-term (current) use of high-risk medication Expected: 07/14/2022, Expires: 09/13/2022 [facility] Work Phone: Comment on above: Expected: 07/14/2022, Expires: Start: 07-14-2022 End: 09-13-2022 Hemoglobin A1c in Blood HGB A1C Lab Routine Type 2 diabetes mellitus with diabetic neuropathy, with long-term current use of insulin (HCC) Expected: 07/14/2022, Expires: 09/13/2022 [facility] Work Phone: Comment on above: Expected: 07/14/2022, Expires: Start: 07-14-2022 End: 09-13-2022 Testosterone [Mass/volume] in Serum or Plasma TESTOSTERONE TOTAL Lab Routine Gender dysphoria Encounter for long-term (current) use of high-risk medication Expected: 07/14/2022, Expires: 09/13/2022 [facility] Work Phone: Comment on above: Expected: 07/14/2022, Expires: 3 Start: 06-03-2022 End: 08-03-2022 Comprehensive metabolic 2000 panel - Serum or Plasma COMP METABOLIC PANEL Lab Routine Type 2 diabetes mellitus with hyperglycemia, without long-term current use of insulin (HCC) Elevated LFTs Hepatic steatosis Expected: 06/03/2022, Expires: 08/03/2022 [facility] Work Phone: Comment on above: Expected: 06/03/2022, Expires: 3 Start: 06-03-2022 End: 08-03-2022 Hemoglobin A1c in Blood HGB A1C Lab Routine Type 2 diabetes mellitus with hyperglycemia, without long-term current use of insulin (HCC) Expected: 06/03/2022, Expires: 08/03/2022 [facility] Work Phone: Comment on above: Expected: 06/03/2022, Expires: 3 Start: 05-14-2022 [facility] Start: 05-08-2022 Adult depression screening assessment DEPRESSION SCREENING [facility] Start: 05-08-2022 ANNUAL PCP TEAM CHRONIC DISEASE VISIT ANNUAL PCP TEAM CHRONIC DISEASE VISIT [facility] Start: 04-06-2022 End: 06-06-2022 Basic metabolic 2000 panel - Serum or Plasma BASIC METABOLIC PNL Lab Routine Hepatic steatosis Elevated liver enzymes Expected: 04/06/2022, Expires: 06/06/2022 [facility] Work Phone: Comment on above: Expected: 04/06/2022, Expires: 3 Start: 04-06-2022 End: 06-06-2022 CBC W Auto Differential panel - Blood CBC + DIFF Lab Routine Hepatic steatosis Elevated liver enzymes Expected: 04/06/2022, Expires: 06/06/2022 [facility] Work Phone: Comment on above: Expected: 04/06/2022, Expires: 3 Start: 04-06-2022 End: 06-06-2022 Hepatic function 2000 panel - Serum or Plasma HEPATIC FUNCTION PNL Lab Routine Hepatic steatosis Elevated liver enzymes Expected: 04/06/2022, Expires: 06/06/2022 [facility] Work Phone: Comment on above: Expected: 04/06/2022, Expires: 3 Start: 04-06-2022 End: 06-06-2022 PT panel - Platelet poor plasma by Coagulation assay PROTHROMBIN TIME/PT Lab Routine Hepatic steatosis Elevated liver enzymes Expected: 04/06/2022, Expires: 06/06/2022 [facility] Work Phone: Comment on above: Expected: 04/06/2022, Expires: Start: 03-30-2022 End: 05-30-2022 CBC W Auto Differential panel - Blood CBC + DIFF Lab Routine Elevated liver enzymes Expected: 03/30/2022 (Approximate), Expires: 05/30/2022 [facility] Work Phone: Comment on above: Expected: 03/30/2022 (Approximate), Expi res: 05/30/2022 Start: 03-30-2022 End: 05-30-2022 Comprehensive metabolic 2000 panel - Serum or Plasma COMP METABOLIC PANEL Lab Routine Elevated liver enzymes Expected: 03/30/2022 (Approximate), Expires: 05/30/2022 [facility] Work Phone: Comment on above: Expected: 03/30/2022 (Approximate), Expi res: 05/30/2022 Start: 03-30-2022 End: 05-30-2022 PT panel - Platelet poor plasma by Coagulation assay PROTHROMBIN TIME/PT Lab Routine Elevated liver enzymes Expected: 03/30/2022 (Approximate), Expires: 05/30/2022 [facility] Work Phone: Comment on above: Expected: 03/30/2022 (Approximate), Expi res: 05/30/2022 Start: 03-09-2022 End: 05-09-2022 Hepatic function 2000 panel - Serum or Plasma HEPATIC FUNCTION PNL Lab Routine Elevated liver enzymes Expected: 03/09/2022, Expires: 05/09/2022 [facility] Work Phone: Comment on above: Expected: 03/09/2022, Expires: 3 Start: 03-05-2022 End: 05-05-2022 AL[address] [facility] Work Phone: Comment on above: Expected: 03/05/2022, Expires: 3 Start: 03-05-2022 End: 05-05-2022 [id number] [Mass/volume] in Serum or Plasma [facility] Work Phone: Comment on above: Expected: 03/05/2022, Expires: 3 Start: 03-05-2022 End: 05-05-2022 HANK BY IFA WITH REFLEX [facility] Work Phone: Comment on above: Expected: 03/05/2022, Expires: 3 Start: 03-05-2022 End: 05-05-2022 Cytomegalovirus IgM Ab [Units/volume] in Serum or Plasma [facility] Work Phone: Comment on above: Expected: 03/05/2022, Expires: 3 Start: 03-05-2022 End: 05-05-2022 Luis Zaman virus capsid IgM Ab [Units/volume] in Serum [facility] Work Phone: Comment on above: Expected: 03/05/2022, Expires: 3 Start: 03-05-2022 End: 05-05-2022 HEPATITIS A ANTIBODY, IGG [facility] Work Phone: Comment on above: Expected: 03/05/2022, Expires: 3 Start: 03-05-2022 End: 05-05-2022 HFE gene targeted mutation analysis in Blood or Tissue by Molecular genetics method HFE (HEMOCHROMATOSIS) Lab Routine Elevated ferritin Elevated liver enzymes Expected: 03/05/2022, Expires: 05/05/2022 [facility] Work Phone: Comment on above: Expected: 03/05/2022, Expires: 3 Start: 03-05-2022 End: 05-05-2022 Mitochondria Ab [Presence] in Serum by Immunofluorescence [facility] Work Phone: Comment on above: Expected: 03/05/2022, Expires: 3 Start: 03-05-2022 End: 05-05-2022 Smooth muscle Ab [Presence] in Serum [facility] Work Phone: Comment on above: Expected: 03/05/2022, Expires: 3 Start: 03-04-2022 Cholesterol [Mass/volume] in Serum or Plasma Cholesterol [facility] Start: 03-04-2022 Lipid panel Cholesterol [facility] Start: 02-11-2022 End: 04-13-2022 CBC W Auto Differential panel - Blood CBC + DIFF Lab Routine Gender dysphoria Expected: 02/11/2022, Expires: 04/13/2022 [facility] Work Phone: Comment on above: Expected: 02/11/2022, Expires: Start: 02-11-2022 End: 04-13-2022 Comprehensive metabolic 2000 panel - Serum or Plasma COMP METABOLIC PANEL Lab Routine Gender dysphoria Expected: 02/11/2022, Expires: 04/13/2022 [facility] Work Phone: Comment on above: Expected: 02/11/2022, Expires: Start: 02-11-2022 End: 04-13-2022 Estradiol (E2) [Mass/volume] in Serum or Plasma ESTRADIOL-17B BLD Lab Routine Gender dysphoria Expected: 02/11/2022, Expires: 04/13/2022 [facility] Work Phone: Comment on above: Expected: 02/11/2022, Expires: 3 Start: 02-11-2022 End: 04-13-2022 Hemoglobin A1c in Blood HGB A1C Lab Routine Type 2 diabetes mellitus with hyperglycemia, without long-term current use of insulin (HCC) Expected: 02/11/2022, Expires: 04/13/2022 [facility] Work Phone: Comment on above: Expected: 02/11/2022, Expires: 3 Start: 02-11-2022 End: 04-13-2022 Lipid 1996 panel - Serum or Plasma LIPID PANEL BASIC Lab Routine Mixed hyperlipidemia Expected: 02/11/2022, Expires: 04/13/2022 [facility] Work Phone: Comment on above: Expected: 02/11/2022, Expires: 3 Start: 02-11-2022 End: 04-13-2022 Testosterone [Mass/volume] in Serum or Plasma TESTOSTERONE TOTAL Lab Routine Gender dysphoria Expected: 02/11/2022, Expires: 04/13/2022 [facility] Work Phone: Comment on above: Expected: 02/11/2022, Expires: 3 Start: 02-07-2022 DEPRESSION ASSESSMENT DEPRESSION ASSESSMENT [facility] Start: 01-14-2022 ANNUAL PCP TEAM CHRONIC DISEASE VISIT ANNUAL PCP TEAM CHRONIC DISEASE VISIT [facility] Start: 11-07-2021 Influenza vaccination Influenza Vaccine (#1) [facility] Start: 10-08-2021 Influenza vaccination [facility] Start: 08-10-2021 Hemoglobin A1c/Hemoglobin.total in Blood HBA1C [facility] Start: 07-10-2021 Mammography MAMMOGRAM [facility] Start: 05-08-2021 End: 07-08-2021 Chronic hepatitis differentiation between hepatitis B and C virus panel - Serum or Plasma HEP REMOTE PANEL BL Lab Routine Elevated LFTs Expected: 05/08/2021, Expires: 07/08/2021 [facility] Work Phone: Comment on above: Expected: 05/08/2021, Expires: 2 Start: 05-08-2021 End: 07-08-2021 Comprehensive metabolic 2000 panel - Serum or Plasma COMP METABOLIC PANEL Lab Routine Elevated LFTs Leg cramping Expected: 05/08/2021, Expires: 07/08/2021 [facility] Work Phone: Comment on above: Expected: 05/08/2021, Expires: 2 Start: 05-08-2021 End: 07-08-2021 Hemoglobin A1c/Hemoglobin.total in Blood HGB A1C Lab Routine Prediabetes Expected: 05/08/2021, Expires: 07/08/2021 [facility] Work Phone: Comment on above: Expected: 05/08/2021, Expires: 2 Start: 05-08-2021 End: 07-08-2021 IRON + TIBC IRON + TIBC Lab Routine Elevated LFTs Expected: 05/08/2021, Expires: 07/08/2021 [facility] Work Phone: Comment on above: Expected: 05/08/2021, Expires: 2 Start: 05-08-2021 End: 07-08-2021 Magnesium [Mass/volume] in Serum or Plasma MAGNESIUM BLD Lab Routine Leg cramping Expected: 05/08/2021, Expires: 07/08/2021 [facility] Work Phone: Comment on above: Expected: 05/08/2021, Expires: 2 Start: 05-08-2021 End: 07-08-2021 Urinalysis complete panel - Urine URINALYSIS, WITH MICROSCOPIC Lab Routine Nocturia Expected: 05/08/2021, Expires: 07/08/2021 [facility] Work Phone: Comment on above: Expected: 05/08/2021, Expires: 2 Start: 05-06-2021 End: 07-06-2021 Comprehensive metabolic 2000 panel - Serum or Plasma COMP METABOLIC PANEL Lab Routine Elevated LFTs Expected: 05/06/2021, Expires: 07/06/2021 [facility] Work Phone: Comment on above: Expected: 05/06/2021, Expires: 2 Start: 05-06-2021 End: 07-06-2021 Hemoglobin A1c/Hemoglobin.total in Blood HGB A1C Lab Routine Prediabetes Expected: 05/06/2021, Expires: 07/06/2021 [facility] Work Phone: Comment on above: Expected: 05/06/2021, Expires: 2 Start: 04-14-2021 Hepatitis B surface antibody level LDL CHOLESTEROL [facility] Start: 04-12-2021 Adult depression screening assessment DEPRESSION SCREENING [facility] Start: 03-17-2021 COVID-19 VACCINE (3 - Booster for Pfizer series) COVID-19 VACCINE (3 - Booster for Pfizer series) [facility] Start: 02-07-2021 DEPRESSION ASSESSMENT DEPRESSION ASSESSMENT [facility] Start: 12-10-2020 COVID-19 VACCINE (3 - Pfizer series) COVID-19 VACCINE (3 - Pfizer series) [facility] Start: 10-15-2020 BP CONTROLLED (<130/80) BP CONTROLLED (<130/80) [facility] Start: 10-08-2020 Influenza vaccination INFLUENZA (#1) [facility] Start: 2018 Measurement of occult blood in single stool specimen FIT [facility] Start: 2018 Pneumococcal vaccination Pneumococcal Vaccine(s) (50+ yrs) (1 of 1 - PCV) [facility] Start: 2018 Screening for malignant neoplasm of colon CRC Screening [facility] Start: 2018 Shingles (RZV) Vaccine (1 of 2) Shingles (RZV) Vaccine (1 of 2) [facility] Start: 2018 SHINGRIX VACCINE (1 of 2) SHINGRIX VACCINE (1 of 2) [facility] Start: 2013 COLOGUARD (FIT-DNA) COLOGUARD (FIT-DNA) [facility] Start: 2013 Colonoscopy COLONOSCOPY [facility] Start: 2013 COLORECTAL CANCER SCREENING COLORECTAL CANCER SCREENING [facility] Start: [address] COLONOGRAPHY [facility] Start: 2013 FECAL OCCULT BLOOD FECAL OCCULT BLOOD [facility] Start: 2013 Prostate specific antigen measurement Prostate Cancer Screening Discussion [facility] Start: 2013 Screening for malignant neoplasm of colon [facility] Start: 2013 SIGMOIDOSCOPY SIGMOIDOSCOPY [facility] Start: 2008 Screening for malignant neoplasm of breast Mammography [facility] Start: 1989 Screening for malignant neoplasm of cervix Pap Smear [facility] Start: 1987 Hepatitis A (HAV) Vaccine (optional start 19+ years) Hepatitis A (HAV) Vaccine (optional start 19+ years) [facility] Start: 1987 HEPATITIS B (1 of 3 - Risk 3-dose series) HEPATITIS B (1 of 3 - Risk 3-dose series) [facility] Start: 1987 Hepatitis B vaccination Hepatitis B (HBV) Vaccine (1 of 3 - 19+ 3-dose series) [facility] Start: 1987 Hepatitis B Vaccine (1 of 3 - 19+ 3-dose series) Hepatitis B Vaccine (1 of 3 - 19+ 3-dose series) [facility] Start: 1987 Pneumococcal Vaccine: 50+ (1 of 2 - PCV) Pneumococcal Vaccine: 50+ (1 of 2 - PCV) [facility] Start: 1986 Anxiety Screening Anxiety Screening [facility] Start: 1986 Depression Screening Depression Screening [facility] Start: 1984 ONE PNEUMOVAX PRIOR TO AGE 65 ONE PNEUMOVAX PRIOR TO AGE 65 [facility] Start: 1983 HIV screening HIV Test [facility] Start: 1978 3 comp foot exam completed DIABETIC FOOT EXAM [facility] Start: 1978 Hepatitis B screening URINE ALBUMIN:CREATININE RATIO [facility] Start: 1978 Hepatitis C antibody, confirmatory test DILATED RETINAL EXAM [facility] Start: 1974 PNEUMOCOCCAL (1 - PCV) PNEUMOCOCCAL (1 - PCV) [facility] Start: 1974 Pneumococcal vaccination Pneumococcal Vaccine (1 of 2 - PCV) [facility] Start: 1968 COVID-19 Vaccine (#1) COVID-19 Vaccine (#1) [facility] Start: 1968 HEPATITIS B (1 of 3 - 3-dose series) HEPATITIS B (1 of 3 - 3-dose series) [facility] Start: 1968 Hepatitis B Vaccine (1 of 3 - 3-dose series) Hepatitis B Vaccine (1 of 3 - 3-dose series) [facility] Start: 1968 Screening for malignant neoplasm of colon Colonoscopy [facility] C. difficile DNA Amplification C. difficile DNA Amplification [facility] Clostridioides diffi cile DNA [Presence] in Unspecified specimen by PIO with probe detection [facility] COLOGUARD COLOGUARD Lab Ro utine Colon cancer screening Ordered: 09/28/2021 [facility] Work Phone: Comment on above: Ordered: 09/28/2021 COLOGUARD COLOGUARD Lab Ro utine Colon cancer screening Ordered: 09/10/2022 [facility] Work Phone: Comment on above: Ordered: 09/10/2022 End: 02-20-2024 CT CALCIUM [place]OR[place]F [place] ([place] Radiology Routine Abnormal electrocardiogram 1 Occurrences starting 01/19/2023 until 02/20/2024 [facility] Work Phone: Comment on above: 1 Occurrences starting 01/19/2023 until 02/20/2024 DBT Breast - bilater al screening ROSALINDA SCREENING W JESSY Radiology Routine Breast cancer screening by mammogram 08/27/2024 2:[address] [facility] Work Phone: End: 03-24-2023 Echocardiography ECHO Cardiology Routine Atrial flutter, unspecified type (HCC) 1 Occurrences starting 03/24/2022 until 03/24/2023 [facility] Work Phone: Comment on above: 1 Occurrences starting 03/24/2022 until 03/24/2023 End: 01-20-2024 Echocardiography ECHO Cardiology Routine Typical atrial flutter (HCC) 1 Occurrences starting 01/19/2023 until 01/20/2024 [facility] Work Phone: Comment on above: 1 Occurrences starting 01/19/2023 until 01/20/2024 Enteric Bacteriology Enteric Bacteriology [facility] Gastrointestinal pat hogens panel - Stool by PIO with probe detection [facility] Hemoglobin A1c/Hemoglobin.total in Blood HEMOGLOBIN A1C (POC) Lab Routine Type 2 diabetes mellitus without complication, with long-term current use of insulin (HCC) Ordered: 08/27/2024 [facility] Work Phone: Comment on above: Ordered: 08/27/2024 IR TRANSJUGULAR LIVE R BX W/PRESS IR TRANSJUGULAR LIVER BX W/PRESS Radiology Routine Hepatic steatosis Elevated liver enzymes Positive HANK (antinuclear antibody) Ordered: 03/09/2022 [facility] Work Phone: Comment on above: Ordered: 03/09/2022 End: 12-24-2023 ROSALINDA SCREENING ROSALINDA SCREENING Radiology Routine Encounter for screening mammogram for malignant neoplasm of breast 1 Occurrences starting 11/24/2022 until 12/24/2023 [facility] Work Phone: Comment on above: 1 Occurrences starting 11/24/2022 until 12/24/2023 Ova and parasites identified in Unspecified specimen by Light microscopy [facility] Patient Education [facility] Work Phone: Patient referral [facility] Work Phone: End: 04-23-2023 Radiologic exam chest 2 views XR CHEST 2V FRONTAL/LAT Radiology Routine Atrial flutter, unspecified type (HCC) 1 Occurrences starting 03/25/2022 until 04/23/2023 [facility] Work Phone: Comment on above: 1 Occurrences starting 03/25/2022 until 04/23/2023 Radiologic exam ches t 2 views XR CHEST 2V FRONTAL/LAT Radiology Routine Atrial flutter, unspecified type (HCC) 03/25/2022 3:[address] [facility] Work Phone: Removal impacted cer umen irrigation/lvg unilat AMBULATORY EAR LAVAGE/IRRIGATION Procedures Routine Bilateral impacted cerumen Ordered: 08/27/2024 [facility] Comment on above: Ordered: 08/27/2024 End: 06-07-2022 Us abdominal real time w/image limited US ABD RT UPPER QUADRANT Radiology Routine Elevated LFTs 1 Occurrences starting 05/08/2021 until 06/07/2022 [facility] Work Phone: Comment on above: 1 Occurrences starting 05/08/2021 until 06/07/2022 End: 04-04-2023 Us abdominal real time w/image limited US ABD RT UPPER QUADRANT Radiology Routine Hepatic steatosis Elevated liver enzymes Hepatic fibrosis 1 Occurrences starting 03/05/2022 until 04/04/2023 [facility] Work Phone: Comment on above: 1 Occurrences starting 03/05/2022 until 04/04/2023 VIBRATION CONTROLLED TRANSIENT ELASTOGRAPHY (POC) VIBRATION CONTROLLED TRANSIENT ELASTOGRAPHY (POC) Imaging Diagnostic Routine Hepatic steatosis Elevated liver enzymes Ordered: 03/05/2022 [facility] Work Phone: Comment on above: Ordered: 03/05/2022 End: 09-26-2025 XR HIP BILATERAL 5V PEL/AP/LAT EACH HIP XR HIP BILATERAL 5V PEL/AP/LAT EACH HIP Radiology Routine Left hip pain 1 Occurrences starting 08/27/2024 until 09/26/2025 [facility] Comment on above: 1 Occurrences starting 08/27/2024 until 09/26/2025 End: 09-26-2025 XR Lumbar spine AP and Lateral and oblique XR LUMBAR PARS DEFECT 4V AP/LAT/BOTH OBL Radiology Routine Left hip pain Left sided sciatica 1 Occurrences starting 08/27/2024 until 09/26/2025 [facility] Comment on above: 1 Occurrences starting 08/27/2024 until 09/26/2025 [facility] Immunizations Immunization Date Immunization Notes Care Provider Fa [facility] 10-15-2020 COVID-19 vaccine, ag e 12+ yr (PFIZER-BIONTECH - PURPLE TOP) Latoya Avila LANCE CREWMEMBER/MLRS SERGEANT.VOCAL PERFORMER Work Phone: [facility] 09-23-2020 COVID-19 vaccine, ag e 12+ yr (PFIZER-BIONTECH - PURPLE TOP) Latoya Avila LANCE CREWMEMBER/MLRS SERGEANT.VOCAL PERFORMER Work Phone: [facility] 10-16-2019 influenza virus vaccine, unspecified formulation Gunnar Guthrie MD Work Phone: [facility] 08-18-2018 tetanus toxoid, redu moody diphtheria toxoid, and acellular pertussis vaccine, adsorbed Latoyakimmie Avila LANCE CREWMEMBER/MLRS SERGEANT.VOCAL PERFORMER Work Phone: [facility] 02-16-2018 influenza virus vaccine, unspecified formulation Latoya Avila LANCE CREWMEMBER/MLRS SERGEANT.VOCAL PERFORMER Work Phone: [facility] Work Phone: Payers Date Payer Category Payer Self-pay 2022 Unknown [id number] 2018 Medicaid [employer] [id number] 2018-Present [phone] [address] [place] [address] Medicaid [id number] 2013 Medicaid [id number] 2013 Medicaid [id number] 2013 Medicaid HMO [facility] MEDICAID [id number] 1968 Unknown [id number] Medicaid [id number] Unknown [id number] Unknown SELF PAY INSURANCE [id number] Unknown [id number] Unknown [id number] Unknown [id number] Social History Date Type Detail Facility Start: 06-22-2017 End: 03-05-2022 Tobacco smoking status NJIS Ex-smoker [facility] History of tobacco use Cigarette Smoker [facility] Start: 06-22-2017 End: 12-12-2023 Cigarettes smoked current (pack per day) - Reported 0.5 [facility] Start: 06-22-2017 End: 03-05-2022 Tobacco use and exposure Smokeless tobacco non-user [facility] Start: 10-23-2020 End: 09-07-2024 Alcohol intake Current non-drinker of alcohol (finding) [facility] Start: 10-14-2019 End: 04-12-2020 History SDOH Alcohol Frequency 1 [facility] Start: 10-14-2019 History SDOH Alcohol Std Drinks 98 [facility] Start: 10-14-2019 End: 01-13-2021 History SDOH Social Connections Phone 2 [facility] Start: 10-14-2019 End: 03-04-2022 History SDOH Physical Activity DPW 5 [facility] Start: 10-14-2019 History SDOH Physical Activity MPS 15 [facility] Start: 10-14-2019 History SDOH Financial 4 [facility] Start: 10-14-2019 Education 12 [facility] Start: 08-18-2018 End: 03-05-2022 Tobacco Comment quit 2011 [facility] Start: 1970 Sex Assigned At Choose not to disclose [facility] Start: 04-20-2021 End: 09-16-2021 Exposure to SARS-CoV-2 (event) Not sure [facility] Work Phone: Start: 06-16-2021 End: 03-05-2023 Tobacco smoking status NHIS Unknown if ever smoked [facility] Start: 04-08-2020 Spouse/ Significant Other [facility] Start: 04-08-2020 Non-smoker [facility] Start: 1970 Sex Assigned At Female [facility] Work Phone: Start: 1970 Sex Assigned At Male [facility] History of tobacco use Current smoker [facility] Work Phone: Start: 03-04-2022 History SDOH Alcohol Std Drinks 0 [facility] Start: 03-04-2022 History SDOH Physical Activity MPS 9 [facility] Start: 03-04-2022 History SDOH Housing Unable to Pay 3 [facility] Start: 03-03-2022 End: 12-12-2023 Social connection and isolation panel [facility] Start: 11-10-2023 In a typical week, how many times do you talk on the telephone with family, friends, or neighbors? Patient refused [facility] Are you now , , , , never or living with a partner? Refused [facility] How often to you hav e a drink containing alcohol? Never [facility] (I/We) worried wheth er (my/our) food would run out before (I/we) got money to buy more. DK or Refused [facility] Start: 08-18-2018 Gender identity Identifies as female gender (finding) [facility] Work Phone: Start: 03-09-2022 Sexual orientation Choose not to disclose [facility] Has the [employer], or [employer] threatened to shut off services in your home in past 12Mo No [facility] Do you feel stress - tense, restless, nervous, or anxious, or unable to sleep at night because your mind is troubled all the time - these days [OSQ] Not at all [facility] At any time in the p ast 12 months, were you homeless or living in prison [including now]? Yes [facility] Start: 03-10-2017 Sex Female (finding) [facility] Start: 07-29-2017 Details of drug misuse behavior Does not misuse drugs (situation) [facility] Medical Equipment Procedure Code Equipment Code Equipment Original Text Equipment Identifier Dates [id number], [id number], [id number], [id number], [id number], [id number] Start: 06-19-2021 End: 03-01-2024 Comment on above: Use with blood gluco se test once daily, Insulin Dep? No Use with blood gluco se test once daily. Insulin Dep? No once daily. USE D IRECTED. Inject 1 Each subcut aneously once daily. USE DIRECTED. Use to inject insuli n up to 4 times per day as directed. Pen Needle, Diabetic (Bd Ultra-Fine [place] Pen Needle) 32 gauge x 5/32 needle Start: 08-27-2021 Pen Needle, Diabetic (Bd Ultra-Fine [place] Pen Needle) 32 gauge x 5/32 needle Start: 08-27-2021 Pen Needle, Diabetic (Bd Ultra-Fine [place] Pen Needle) 32 gauge x 5/32 needle Start: 08-27-2021 Mental Status Date Assessment Result Facility 03-05-2023 Cognitive function Level Of Cons ciousness Awake;Alert;Appropriate;Follow s Commands [facility] Work Phone: Clinical Notes 07-17-2019 to 10-23-2024 Telephone Encounter - Bettina Blanchard MA - 10/23/2024 2:34 PM EDTTelephone Encounter - Bettina Blanchard MA - 10/23/2024 2:34 PM EDTFTorrie trujillo, [facility] - 09/05/2024 11:30 AM EDTPatient Instructions Note Date & Type Note Facility 10-23-2024 Telephone encounter Note Patient has f/u in February for HRT. Patient [facility] has no refills. Request sent to Dr Shine. Patient requests via [employer] refills as follows: Requested Prescriptions Pending Prescriptions Disp Refills metFORMIN ER (GLUCOPHAGE XR) 500 mg 24 hr tablet 270 tablet 3 Sig: Take 3 tablets by mouth daily with breakfast. lisinopril (ZESTRIL) 10 mg tablet 90 tablet 3 Sig: Take 1 tablet by mouth once daily. metoprolol tartrate, short acting, (LOPRESSOR) 25 mg tablet 180 tablet 3 Sig: Take 1 tablet by mouth two times a day. insulin glargine (BASAGLAR KWIKPEN U-100 INSULIN) 100 unit/mL (3 mL) 30 mL 3 Sig: Inject 22 Units subcutaneously daily at bedtime. Please review and advise. Bettina Blanchard MA [facility] 10-23-2024 Miscellaneous Notes Patient has f/u in February for HRT. Patient [facility] pharmacy has no refills. Request sent to Dr Shine. Patient requests via [employer] refills as follows: Requested Prescriptions Pending Prescriptions Disp Refills metFORMIN ER (GLUCOPHAGE XR) 500 mg 24 hr tablet 270 tablet 3 Sig: Take 3 tablets by mouth daily with breakfast. lisinopril (ZESTRIL) 10 mg tablet 90 tablet 3 Sig: Take 1 tablet by mouth once daily. metoprolol tartrate, short acting, (LOPRESSOR) 25 mg tablet 180 tablet 3 Sig: Take 1 tablet by mouth two times a day. insulin glargine (BASAGLAR KWIKPEN U-100 INSULIN) 100 unit/mL (3 mL) 30 mL 3 Sig: Inject 22 Units subcutaneously daily at bedtime. Please review and advise. Bettina Blanchard MA documented in this encounter [facility] 10-22-2024 Telephone encounter Note Images from the original note were not included. Most recent Endocrinology visit: Last encounter Visit on 05/18/2024 (with Ghislaine Brown) 03/22/2023 in [facility] with GHISLAINE BROWN for Type 2 diabetes mellitus with diabetic neuropathy, with long-term current use of insulin ([facility]) 05/24/2023 in [facility] MD with [facility] HAIRSTON for Type 2 diabetes mellitus with diabetic neuropathy, with long-term current use of insulin ([facility]) 05/18/2024 in [facility] with GHISLAINE BROWN for Type 2 diabetes mellitus with diabetic neuropathy, with long-term current use of insulin ([facility]) Upcoming Endocrinology Appointments - Next 365 Days Visit Type Date Time Department EST ALFREDO PATIENT 12/04/2024 12:20 PM [facility] Requested Prescriptions Pending Prescriptions Disp Refills rosuvastatin (CRESTOR) 20 mg tablet 90 tablet 0 Sig: Take 1 tablet by mouth once daily. Latest Ref Rng & Units 08/27/2024 05/18/2024 12/06/2023 Hemoglobin A1C Hemoglobin A1C 4.3 - 5.6 % 7.1 6.1 Hemoglobin A1C (POCT) 4.3 - 5.6 % 6.5 Latest Ref Rng & Units 05/18/2024 03/24/2022 04/30/2021 TSH TSH 0.270 - 4.200 mIU/L 1.230 1.050 2.470 Free T3: None on file in the last 12 months Free T4: None on file in the last 12 months Thyroglobulin: None on file in the last 12 months Vitamin D: None on file in the last 12 months Hematocrit: None on file in the last 12 months Latest Ref Rng & Units 05/18/2024 12/06/2023 11/10/2023 Creatinine Creatinine 0.73 - 1.22 mg/dL 0.89 0.78 0.74 Latest Ref Rng & Units 05/18/2024 12/06/2023 11/10/2023 eGFR EGFR >=60 mL/min/1.73m 76 90 96 Latest Ref Rng & Units 05/18/2024 12/06/2023 11/10/2023 Potassium Potassium 3.7 - 5.1 mmol/L 4.2 4.5 4.6 Testosterone: None on file in the last 12 months IGF: None on file in the last 12 months Prolactin: None on file in the last 12 months [facility] 10-22-2024 Miscellaneous Notes Images from the original note were not included. Most recent Endocrinology visit: Last encounter Visit on 05/18/2024 (with Ghislaine Brown) 03/22/2023 in [facility] with GHISLAINE BROWN for Type 2 diabetes mellitus with diabetic neuropathy, with long-term current use of insulin ([facility]) 05/24/2023 in [facility] MD with [facility] for Type 2 diabetes mellitus with diabetic neuropathy, with long-term current use of insulin ([facility]) 05/18/2024 in [facility] with GHISLAINE BROWN for Type 2 diabetes mellitus with diabetic neuropathy, with long-term current use of insulin ([facility]) Upcoming Endocrinology Appointments - Next 365 Days Visit Type Date Time Department EST ALFREDO PATIENT 12/04/2024 12:20 PM [facility] Requested Prescriptions Pending Prescriptions Disp Refills rosuvastatin (CRESTOR) 20 mg tablet 90 tablet 0 Sig: Take 1 tablet by mouth once daily. Latest Ref Rng & Units 08/27/2024 05/18/2024 12/06/2023 Hemoglobin A1C Hemoglobin A1C 4.3 - 5.6 % 7.1 6.1 Hemoglobin A1C (POCT) 4.3 - 5.6 % 6.5 Latest Ref Rng & Units 05/18/2024 03/24/2022 04/30/2021 TSH TSH 0.270 - 4.200 mIU/L 1.230 1.050 2.470 Free T3: None on file in the last 12 months Free T4: None on file in the last 12 months Thyroglobulin: None on file in the last 12 months Vitamin D: None on file in the last 12 months Hematocrit: None on file in the last 12 months Latest Ref Rng & Units 05/18/2024 12/06/2023 11/10/2023 Creatinine Creatinine 0.73 - 1.22 mg/dL 0.89 0.78 0.74 Latest Ref Rng & Units 05/18/2024 12/06/2023 11/10/2023 eGFR EGFR >=60 mL/min/1.73m 76 90 96 Latest Ref Rng & Units 05/18/2024 12/06/2023 11/10/2023 Potassium Potassium 3.7 - 5.1 mmol/L 4.2 4.5 4.6 Testosterone: None on file in the last 12 months IGF: None on file in the last 12 months Prolactin: None on file in the last 12 months documented in this encounter [facility] 10-01-2024 Telephone encounter Note 03/23/23 Next appt 03/07/25 Requested Prescriptions Pending Prescriptions Disp Refills estradiol (ESTRACE) 2 mg tablet 30 tablet 0 Sig: Take 1 tablet by mouth once daily. [facility] 10-01-2024 Miscellaneous Notes Lv 03/23/23 Next appt 03/07/25 Requested Prescriptions Pending Prescriptions Disp Refills estradiol (ESTRACE) 2 mg tablet 30 tablet 0 Sig: Take 1 tablet by mouth once daily. documented in this encounter [facility] 09-05-2024 History of Presen t illness Narrative Primary Care Pharmacy Visit CC (Reason for Consult): Diabetes (E11.65) Type 2 diabetes mellitus with hyperglycemia, without long-term current use of insulin ([facility]) (primary encounter diagnosis) Goal: A1c < 7% Referring Provider: Gunnar Guthrie MD Last Collaborating Provider Visit: 03/23/23 Isai Graham is a 54 year old adult presenting for follow up visit virtually. Patient consents to pharmacy collaborative practice agreement. Interim Events: ED at [facility] in late February 2023 for high BG and feeling like passing out; not admitted 03/10/23: referred to PharmD to help with DM [id number] 03/16: initial PharmD visit; insulin increased; advised to read nutrition labels and limit Total Carbs; encouraged lifestyle mods, CGM ordered; plan to discuss GLP1 at future visit 03/22: Endo switched metformin to ER and increased dose; Trulicity started; dietary mods encouraged 03/23: no med changes 04/04: no med changes since endo recently started Trulicity 05/23: Trulicity increased 07/12: Trulicity increased to 4.5mg weekly, but that wasn't in stock so 3mg resumed 07/19: rosuvastatin started 11/15: Dexcom CGM ordered 12/11: Mealtime insulin stopped 12/25: metformin increased and glargine decreased; mealtime insulin stopped 02/22: ED for [place] Palsy 03/26: pt reported being off Trulicity for ~1.5 mo and had high Bgs from steroids; Trulicity restarted from 0.75mg weekly with directions for rapid titration up to 3mg weekly 04/30: Trulicity increased 05/18: endo ordered Ozempic to replace trulicity; Ozempic not covered so Trulicity increased 06/04: Trulicity increased; lifestyle mods encouraged 08/27: established care with new PCP at [facility] HPI: Reports just getting over the flu. Feeling better now. Feels sugars are doing well. Isn't wearing Dexcom currently because having issues keeping it on. They are falling off because sweating a lot. Has done occasional sticks and says sugars are good. Up to Trulicity 4.5mg and tolerating well. No GI issues. Current DM Medications: Metformin ER 500mg tabs - 1500mg daily Dulaglutide (Trulicity) 4.5mg weekly on Mondays Insulin glargine (Lantus) 22 units QHS Past DM medications: Trulicity - headache Metformin 1000mg BID - diarrhea Admelog SMBGS (Fingersticks) Reports Bgs are 80-115 mg/dL every other day No low sugars Preventative Medications: On RADHA/ARB: Yes On Statin: Yes ROS: Patient denies CP, SOB, MARVIN, blurred vision, dizziness or lightheadedness Patient denies symptoms of hypoglycemia (sweating, anxiety, palpitations, hunger, and tremor) Patient denies symptoms of hyperglycemia (polyuria, polydipsia, polyphagia) Patient denies potential medication adverse effects DIET/EXERCISE/SOCIAL Hx: Walking more, still running with dog; walks with dogs this AM Trying to eat 3 meals/day Trying to be more mindful with eating Breakfast: grapefruits Lunch: broccoli soup Dinner: changes Beverages: water MEDICATIONS: Pill bottles are not present. Adherence: denies missed doses. Pharmacy: [facility] [address] [place] [phone] [facility] [phone] Rx coverage: Payor: [facility] MEDICAID / Plan: [facility] MEDICAID / Product Type: Medicaid / Medications affordable? 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 ALLERGIES Allergen Reactions Atorvastatin Myalgia Severe muscle cramps Penicillins Unknown Medication List Medication Directions Comments Action/Plan apixaban (ELIQUIS) 5 mg tab(s) Take 1 tablet by mouth two times a day. Patient not taking: Reported on 08/27/2024 Blood-Glucose Meter,Continuous (DEXCOM G7 ADJUNCT FACULTY) misc Use to check blood sugar at least four (4) times daily. Blood-Glucose Sensor (DEXCOM G7 SENSOR) kali Apply new sensor every ten (10) days. COMPOUNDED PRESCRIPTION Initiate CPAP @ 13 cm of water with humidification mask (per patient preference) optional chin strap (if indicated) and lifetime supplies DX: BE 327.23 dulaglutide (TRULICITY) 4.5 mg/0.5 mL pen injector Inject 4.5 mg subcutaneously one time a week. estradiol (ESTRACE) 2 mg tablet Take 1 tablet by mouth once daily. insulin glargine (BASAGLAR KWIKPEN U-100 INSULIN) 100 unit/mL (3 mL) Inject 22 Units subcutaneously daily at bedtime. Insulin [place], Disposable, (PEN NEEDLE) 32 gauge x 5/32 Use to inject insulin up to 4 times per day as directed. Lancets Use with blood glucose test once daily. Insulin Dep? No lisinopril (ZESTRIL) 10 mg tablet Take 1 tablet by mouth once daily. metFORMIN ER (GLUCOPHAGE XR) 500 mg 24 hr tablet Take 3 tablets by mouth daily with breakfast. metoprolol tartrate, short acting, (LOPRESSOR) 25 mg tablet Take 1 tablet by mouth two times a day. zlrlm-5s-hgw-epa-fish oil (OMEGA-3 FISH OIL) 300-1,000 mg cap Take 1 capsule by mouth once daily. propylene glycoL (SYSTANE BALANCE) 0.6 % drop Use 1 Drop in both eyes as needed. rosuvastatin (CRESTOR) 20 mg tablet Take 1 tablet by mouth once daily. Exam: There were no vitals taken for this visit. Last 3 Encounter BP Readings: Date: BP: 08/27/2024 118/70 03/01/2024 118/70 03/22/2023 118/67 Wt: 113.4 kg (250 lb) BMI: 39.16 kg/(m^2) LABS: Reviewed Lab Results Component Value Date HBA1C 6.5 08/27/2024 HBA1C 7.1 05/18/2024 HBA1C 6.1 12/06/2023 HBA1C 5.8 07/19/2023 HBA1C 12.5 03/22/2023 CMP: Glucose 195 05/18/2024 BUN 16 05/18/2024 Creatinine 0.89 05/18/2024 Sodium 140 05/18/2024 Potassium 4.2 05/18/2024 Chloride 104 05/18/2024 CO2 23 05/18/2024 Protein, Total 7.2 05/18/2024 Albumin 4.1 05/18/2024 Calcium 9.5 05/18/2024 Alkaline Phosphatase 57 05/18/2024 Bilirubin, Total 0.2 05/18/2024 AST 33 05/18/2024 ALT 35 05/18/2024 No results found for: GFR Estimated Creatinine Clearance (based on SCr of 0.89 mg/dL) Female: 91.7 mL/min Male: 111.4 mL/min Lab Results Component Value Date CHOL 129 12/06/2023 CHOL 216 11/10/2023 CHOL 194 04/14/2020 CHOL 227 12/29/2012 LDL 61 12/06/2023 LDL 120 04/14/2020 LDL 162 12/29/2012 HDL 47 12/06/2023 HDL 50 11/10/2023 HDL 51 04/14/2020 HDL 33 12/29/2012 TG 103 12/06/2023 TG 180 11/10/2023 TG 114 04/14/2020 TG 162 12/29/2012 The ASCVD Risk score (Rui HERBERT, et al., 2019) failed to calculate for the following reasons: The valid total cholesterol range is 130 to 320 mg/dL Albumin/Creat Ratio (mg/g) Date Value 08/27/2024 6 PHARMACOTHERAPY ASSESSMENT/PLAN: 1. Type 2 diabetes mellitus with hyperglycemia, without long-term current use of insulin (HCC) - ICD9: 250.00, 790.29, ICD10: E11.65 A1c goal < 7%; controlled (last A1c 6.5%); SMBG at goal; tolerating regimen well; no med changes; will discharge from PharmD services since A1c at goal and it is almost ~18 mo since last PCI provider visit Continue current regimen Applauded on improved A1c Informed that if wants to reestablish care with PharmD in the future, she will need to establish care with a new [facility] PCP Care Transition Back to PCP Our mutual patient, Isai Graham, who was referred to primary care pharmacy services for Diabetes management, has achieved adequate control during their care with us. . We will not be scheduling further follow up with pharmacy at this time. They have been encouraged to follow up with you for ongoing management. As always, you may refer Isai Graham back to pharmacy for management in the future. Next PCP team appointment: 11/26/24 Thank you for utilizing primary care pharmacy services. Torrie Howard, JorgeD, BCPS Primary Care Clinical Pharmacist Time spent: 22 mins documented in this encounter [facility] 09-05-2024 Instructions Torrie Howard RPh - 09/05/2024 11:30 AM EDT It was wonderful talking with you today! Please see below for a summary of the information we discussed. Additionally, please feel free to send me a [employer] message if needed between appointments. If you feel I or any of your other caregivers have exceeded your expectations, please consider submitting your recognition through [employer] Thank you, Torrie Howard PharmD Medication Changes Continue with all of your medications as prescribed: Metformin ER 1500mg daily Trulicity 4.5mg weekly Lantus 22 units once daily Goals Maintain A1c <7% Weight loss, [id number]-[id number] redistribution Get a baseline weight. Also take baseline measurements of your upper arms, waist, and thighs. Start a strength training routine, such as 10 push-ups and 10 squats DAILY. Then increase from there as able. Other Continue being mindful of your diet! Medications like Trulicity can result in losing muscle mass. Try to increase your lean protein intake (ie eggs, chicken, turkey, seafood, nuts, other plant-based proteins, etc) and start a strength training routine. If you need to work with PharmD in the future, please be sure to establish care with a [facility] PCP at either [facility] or [place] and ask for a new referral to pharmacy. I will be happy to work with you again! documented in this encounter [facility] 09-05-2024 Note HNO ID: [id number] Author: TORRIE HOWARD RPh Service: ? Author Type: Pharmacist Type: Progress Notes Filed: 09/05/2024 12:12 Note Text: Primary Care Pharmacy Visit CC (Reason for Consult): Diabetes (E11.65) Type 2 diabetes mellitus with hyperglycemia, without long-term current use of insulin (HCC) (primary encounter diagnosis) Goal: A1c < 7% Referring Provider: Gunnar Guthrie MD Last Collaborating Provider Visit: 03/23/23 Isai Graham is a 54 year old adult presenting for follow up visit virtually. Patient consents to pharmacy collaborative practice agreement. Interim Events: ED at [facility] in late February 2023 for high BG and feeling like passing out; not admitted 03/10/23: referred to PharmD to help with DM mngt 03/16: initial PharmD visit; insulin increased; advised to read nutrition labels and limit Total Carbs; encouraged lifestyle mods, CGM ordered; plan to discuss GLP1 at future visit 03/22: Endo switched metformin to ER and increased dose; Trulicity started; dietary mods encouraged 03/23: no med changes 04/04: no med changes since endo recently started Trulicity 05/23: Trulicity increased 07/12: Trulicity increased to 4.5mg weekly, but that wasn't in stock so 3mg resumed 07/19: rosuvastatin started 11/15: Dexcom CGM ordered 12/11: Mealtime insulin stopped 12/25: metformin increased and glargine decreased; mealtime insulin stopped 02/22: ED for [place] Palsy 03/26: pt reported being off Trulicity for ~1.5 mo and had high Bgs from steroids; Trulicity restarted from 0.75mg weekly with directions for rapid titration up to 3mg weekly 04/30: Trulicity increased 05/18: endo ordered Ozempic to replace trulicity; Ozempic not covered so Trulicity increased 06/04: Trulicity increased; lifestyle mods encouraged 08/27: established care with new PCP at [facility] HPI: Reports just getting over the flu. Feeling better now. Feels sugars are doing well. Isn't wearing Dexcom currently because having issues keeping it on. They are falling off because sweating a lot. Has done occasional sticks and says sugars are good. Up to Trulicity 4.5mg and tolerating well. No GI issues. Current DM Medications: Metformin ER 500mg tabs - 1500mg daily Dulaglutide (Trulicity) 4.5mg weekly on Mondays Insulin glargine (Lantus) 22 units QHS Past DM medications: Trulicity - headache Metformin 1000mg BID - diarrhea Admelog SMBGS (Fingersticks) Reports Bgs are 80-115 mg/dL every other day No low sugars Preventative Medications: On RADHA/ARB: Yes On Statin: Yes ROS: Patient denies CP, SOB, MARVIN, blurred vision, dizziness or lightheadedness Patient denies symptoms of hypoglycemia (sweating, anxiety, palpitations, hunger, and tremor) Patient denies symptoms of hyperglycemia (polyuria, polydipsia, polyphagia) Patient denies potential medication adverse effects DIET/EXERCISE/SOCIAL Hx: Walking more, still running with dog; walks with dogs this AM Trying to eat 3 meals/day Trying to be more mindful with eating Breakfast: grapefruits Lunch: broccoli soup Dinner: changes Beverages: water MEDICATIONS: Pill bottles are not present. Adherence: denies missed doses. Pharmacy: [facility] [address] [place] [id number] [phone] - [phone] Rx coverage: Payor: [facility] MEDICAID / Plan: [facility] MEDICAID / Product Type: Medicaid / Medications affordable? 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 ALLERGIES Allergen Reactions Atorvastatin Myalgia Severe muscle cramps Penicillins Unknown Medication List Medication Directions Comments Action/Plan apixaban (ELIQUIS) 5 mg tab(s) Take 1 tablet by mouth two times a day. Patient not taking: Reported on 08/27/2024 Blood-Glucose Meter,Continuous (DEXCOM G7 ADJUNCT FACULTY) misc Use to check blood sugar at least four (4) times daily. Blood-Glucose Sensor (DEXCOM G7 SENSOR) kali Apply new sensor every ten (10) days. COMPOUNDED PRESCRIPTION Initiate CPAP @ 13 cm of water with humidification mask (per patient preference) optional chin strap (if indicated) and lifetime supplies DX: BE 327.23 dulaglutide (TRULICITY) 4.5 mg/0.5 mL pen injector Inject 4.5 mg subcutaneously one time a week. estradiol (ESTRACE) 2 mg tablet Take 1 tablet by mouth once daily. insulin glargine (BASAGLAR KWIKPEN U-100 INSULIN) 100 unit/mL (3 mL) Inject 22 Units subcutaneously daily at bedtime. Insulin [place], Disposable, (PEN NEE (more content not included)... [facility] 08-27-2024 History of Presen t illness Narrative Radiology Service Progress Note PATIENT NAME: Isai Graham DATE OF SERVICE: August 27, 2024 TIME: 2:49 PM PATIENT IDENTITY VERIFICATION COMPLETED USING TWO (2) IDENTIFIERS: Name and Date of confirmed by patient verbally. FALL SCREENING: Has the patient had 2 falls in the last year or 1 fall with injury or currently using an Ambulatory Assistive Device (Walker, Cane, Wheelchair, Crutches, etc.)? No PATIENT GENDER DATA: Assigned female at . status: : No status: NO. PATIENT RELEVANT IMPLANT DATA REVIEWED: Not Applicable PATIENT PRESENTS WITH AN IMPLANTABLE OR ATTACHED TELEVISION PRODUCTION TECHNICIAN: No RADIOLOGY DEPARTMENT: Mammography PERIPHERAL IV DATA: Not applicable SIGNED BY: Cherry Polk August 27, 2024 2:49 PM documented in this encounter [facility] 08-27-2024 Note HNO ID: [id number] Author: SKIP JUSTICE Mammo Tech Service: ? Author Type: Technologist Type: Progress Notes Filed: 08/27/2024 14:49 Note Text: Radiology Service Progress Note PATIENT NAME: Isai Graham DATE OF SERVICE: August 27, 2024 TIME: 2:49 PM PATIENT IDENTITY VERIFICATION COMPLETED USING TWO (2) IDENTIFIERS: Name and Date of confirmed by patient verbally. FALL SCREENING: Has the patient had 2 falls in the last year or 1 fall with injury or currently using an Ambulatory Assistive Device (Walker, Cane, Wheelchair, Crutches, etc.)? No PATIENT GENDER DATA: Assigned female at . status: : No status: NO. PATIENT RELEVANT IMPLANT DATA REVIEWED: Not Applicable PATIENT PRESENTS WITH AN IMPLANTABLE OR ATTACHED TELEVISION PRODUCTION TECHNICIAN: No RADIOLOGY DEPARTMENT: Mammography PERIPHERAL IV DATA: Not applicable SIGNED BY: Skip Justice [employer] August 27, 2024 2:49 PM [facility] 08-27-2024 Note HNO ID: [id number] Author: TONYA PLEITEZ MA Service: ? Author Type: Burn Out Tender Lace Type: Progress Notes Filed: 09/07/2024 23:57 Note Text: Pt. Identified by name and . Performed a successful bilateral ear irrigation with no complaints. Tonya Pleitez MA [facility] 08-27-2024 History of Presen t illness Narrative Pt. Identified by name and . Performed a successful bilateral ear irrigation with no complaints. Tonya Pleitez MA Subjective The patient consented to the use of [employer] software for draft documentation of the visit consistent with [facility] s Notice of Privacy Practices. HPI Isai Graham is a 54-year-old female with a history of T2DM, HTN, HLD, and fatty liver disease, presenting for a diabetes follow-up visit. She also reports right hip pain. She is a new patient. Isai reports a 3-4 month history of constant, achy pain in the right hip, localized to the posterior aspect near the gluteal region. 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 She denies any known trauma or falls and suspects the pain may be related to her sleeping position or work activities. She has not had this issue evaluated by a clinician yet. She has been taking Aleve since yesterday, which has provided some relief, after finding Motrin ineffective. She denies any known back problems but has a history of knee issues, for which she wears knee braces during work. She has not tried a back brace yet. Isai was diagnosed with T2DM 4-5 years ago and has a family history of diabetes in her father. She is currently on Trulicity 4.5 mg once a week, which she tolerates well after initial side effects of lightheadedness. She also takes insulin glargine 22 units at bedtime and metformin 1500 mg daily with breakfast. She reports an A1c of 6.5 today, down from 7.1 in May and 12.5 a year ago. She is actively trying to lose weight by staying active and following dietary recommendations, including consuming carbohydrates. She reports eating twice a day but is considering increasing to three meals a day. Isai has a history of fatty liver disease and was previously scheduled for a liver biopsy, which she did not complete due to fear. She has been on estrogen therapy for 10 years. She is also on lisinopril 10 mg daily, metoprolol tartrate 25 mg BID, and rosuvastatin 20 mg daily. She denies any current liver issues but has a history of elevated liver enzymes and an enlarged liver on ultrasound. Her last set of liver enzymes were normal in May. She denies any issues with her feet and has not had any surgeries. She is due for a mammogram and has not had one in the last couple of years. She denies any lumps or bumps in her breasts and checks them regularly. She also denies any bladder issues and has no family history of prostate cancer. She is a former smoker, having quit 11 years ago, and denies any current use of tobacco, vaping, or marijuana. Isai is transgender and receives gender-affirming care from Dr. Guthrie at the [facility] in [place]. She has upcoming appointments for gender-affirming care and with a manager nc in February. She is considering establishing care with the current clinician for diabetes management. I reviewed past medical, surgical, social, and family histories today and updated chart. Allergies, chronic medications, and supplements were also reviewed. 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 dulaglutide (TRULICITY) 4.5 mg/0.5 mL pen injector Inject 4.5 mg subcutaneously one time a week. estradiol (ESTRACE) 2 mg tablet Take 1 tablet by mouth once daily. Blood-Glucose Sensor (DEXCOM G7 SENSOR) kali Apply new sensor every ten (10) days. propylene glycoL (SYSTANE BALANCE) 0.6 % drop Use 1 Drop in both eyes as needed. Lancets Use with blood glucose test once daily. Insulin Dep? No lisinopril (ZESTRIL) 10 mg tablet Take 1 tablet by mouth once daily. metoprolol tartrate, short acting, (LOPRESSOR) 25 mg tablet Take 1 tablet by mouth two times a day. metFORMIN ER (GLUCOPHAGE XR) 500 mg 24 hr tablet Take 3 tablets by mouth daily with breakfast. rosuvastatin (CRESTOR) 20 mg tablet Take 1 tablet by mouth once daily. Insulin [place], Disposable, (PEN NEEDLE) 32 gauge x 5/32 Use to inject insulin up to 4 times per day as directed. Blood-Glucose Meter,Continuous (DEXCOM G7 ADJUNCT FACULTY) misc Use to check blood sugar at least four (4) times daily. ybhzh-9p-svj-epa-fish oil (OMEGA-3 FISH OIL) 300-1,000 mg cap Take 1 capsule by mouth once daily. apixaban (ELIQUIS) 5 mg tab(s) Take 1 tablet by mouth two times a day. (Patient not taking: Reported on 08/27/2024) COMPOUNDED PRESCRIPTION Initiate CPAP @ 13 cm of water with humidification mask (per patient preference) optional chin strap (if indicated) and lifetime supplies DX: BE 327.23 FAMILY HISTORY Problem Relation Age of Onset Obstructive Sleep Apnea Mother Diabetes Father other (fungal infection in the blood) Father Stroke Father COPD Maternal Grandmother No Ocular Disease No Family History Social History Tobacco Use Smoking status: Former Current packs/day: 0.50 Types: Cigarettes Smokeless tobacco: Never Tobacco comments: quit 2011 Vaping Use Vaping status: Former Substance Use Topics Alcohol use: No Drug use: No Review of Systems Ears/Nose/Mouth/Throat: (+) earwax buildup Gastrointestinal: (-) nausea, (-) vomiting Genitourinary: (-) urinary symptoms Musculoskeletal: (+) right posterior hip pain radiating to calf, (+) bilateral knee pain, (-) back pain Neurological: (+) lower extremity numbness Objective BP 118/70 Pulse 69 Temp 98 Ht 5' 7 (1.70m) Wt 250 lb (113.4kg) SpO2 98% BMI 39.15 kg/(m^2). Physical Exam GENERAL: NAD, alert and oriented. SKIN: Unremarkable, no rash or skin lesions. HEAD: Normocephalic. EYES: PERRLA, EOMI, conjunctiva clear. EARS: External ears normal, canals impacted with cerumen, TM's normal. NOSE/SINUSES: Nares normal. Septum midline. OROPHARYNX: Lips, mucosa, and tongue normal, good dentition. No oral lesions noted. NECK: Supple, no lymphadenopathy, normal thyroid, no carotid bruits. LUNGS: Clear to auscultation bilaterally, no wheezes/rhonchi/rales. HEART: Regular rate and rhythm, no murmurs. No ectopy. EXTREMITIES: Normal, no deformities, no skin discoloration, no edema. NEURO: Awake, alert and oriented x3, cranial nerves II-XII grossly intact, normal gait, no involuntary motions. SPINE: No tenderness noted on palpation of the lumbar spine. HIP: Right hip: Pain noted with external rotation. Left hip: No pain with straight leg raise or rotation. Labs: (Today) - A1c: 6.5 July - CBC: normal May - A1c: 7.1 - Liver enzymes: normal Imaging: - Abdominal Ultrasound: Mildly enlarged liver consistent with fatty infiltration, no focal lesions identified Latest Ref Rng 07/22/2022 12/06/2023 05/18/2024 Protein, Total 6.3 - 8.0 g/dL 7.2 Albumin 3.9 - 4.9 g/dL 4.1 Calcium 8.5 - 10.2 mg/dL 9.5 Bilirubin, Total 0.2 - 1.3 mg/dL 0.2 Alkaline Phosphatase 38 - 113 U/L 57 AST 14 - 40 U/L 33 ALT 10 - 54 U/L 35 Glucose 74 - 99 mg/dL 195 (H) BUN 7 - 21 mg/dL 16 Creatinine 0.73 - 1.22 mg/dL 0.89 Sodium 136 - 144 mmol/L 140 Potassium 3.7 - 5.1 mmol/L 4.2 Chloride 98 - 107 mmol/L 104 CO2 22 - 30 mmol/L 23 Anion Gap 8 - 15 mmol/L 13 eGFR >=60 mL/min/1.73m 76 WBC 3.70 - 11.00 k/uL 5.79 RBC [...] fL 9.8 Absolute nRBC <0.01 k/uL <0.01 Total Cholesterol, Nonfasting <200 mg/dL 129 Triglycerides, Nonfasting <150 mg/dL 103 HDL Cholesterol, Nonfasting >39 mg/dL 47 LDL Cholesterol Calculated, Nonfasting <100 mg/dL 61 Non HDL Cholesterol, Nonfasting <130 mg/dL 82 VLDL Cholesterol, Nonfasting <30 mg/dL 21 Total Chol/HDL Ratio, Nonfasting <5.10 mg/dL 2.74 LDL/HDL Ratio, Nonfasting <2.54 mg/dL 1.30 TSH 0.270 - 4.200 mIU/L 1.230 Latest Ref Rng 12/06/2023 05/18/2024 08/27/2024 Hemoglobin A1C 4.3 - 5.6 % 6.1 (H) 7.1 (H) Estimated Average Glucose mg/dL 128 157 Hemoglobin A1C (POCT) 4.3 - 5.6 % 6.5 ! Assessment/Plan: 1. Type 2 diabetes mellitus without complication, with long-term current use of insulin (HCC) (E11.9) Diagnosed approximately 4-5 years ago. Current medications include Trulicity 4.5 mg once weekly, insulin glargine 22 units at bedtime, and Metformin 1500 mg daily. A1c today is 6.5%, improved from 7.1% in May. Patient is tolerating Trulicity well without nausea or vomiting. - Continue current medication regimen. - Discussed importance of maintaining a balanced diet with three meals a day to support metabolism. - Recommended incorporating strength training exercises. - Scheduled follow-up in 3 months. 2. Left hip pain (M25.552) Left sided sciatica (M54.32) Chronic for 3-4 months, described as constant and achy, radiating down to the calf. No history of injury or trauma. Physical exam reveals pain with external rotation of the hip. Differential diagnosis includes arthritis and sciatica. - Ordered X-rays of the hips and lumbar spine. - Advised continuation of Aleve, 2 pills in the morning and 2 pills in the evening with food for 1-2 weeks. - Follow-up in 3 months to review X-ray results. 3. Screening for prostate cancer (Z12.5) No family history of prostate cancer. Patient is on estrogen therapy for 10 years. - Ordered PSA level. - Discussed pros and cons of PSA testing and digital rectal exam. 4. Breast cancer screening by mammogram (Z12.31) Last mammogram in 2020. No lumps or bumps reported. - Ordered mammogram. 5. Bilateral impacted cerumen (H61.23) Significant cerumen impaction noted bilaterally on exam. 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 Alli Aguirre APRN.DEYA This patient note was created using speech recognition/dictation software to enhance efficiency and accuracy in clinical documentation. The content has been reviewed and edited as necessary to ensure completeness and correctness. While every effort has been made to ensure accuracy, occasional typographical errors may be present. documented in this encounter [facility] 08-27-2024 Note HNO ID: [id number] Author: ALLI AGUIRRE APRN.DEYA Service: ? Author Type: Nurse Practitioner Type: Progress Notes Filed: 09/07/2024 23:57 Note Text: Subjective The patient consented to the use of ambient MyFit software for draft documentation of the visit consistent with [facility]?s Notice of Privacy Practices. HPI Isai Graham is a 54-year-old female with a history of T2DM, HTN, HLD, and fatty liver disease, presenting for a diabetes follow-up visit. She also reports right hip pain. She is a new patient. Isai reports a 3-4 month history of constant, achy pain in the right hip, localized to the posterior aspect near the gluteal region. 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 She denies any known trauma or falls and suspects the pain may be related to her sleeping position or work activities. She has not had this issue evaluated by a clinician yet. She has been taking Aleve since yesterday, which has provided some relief, after finding Motrin ineffective. She denies any known back problems but has a history of knee issues, for which she wears knee braces during work. She has not tried a back brace yet. Isai was diagnosed with T2DM 4-5 years ago and has a family history of diabetes in her father. She is currently on Trulicity 4.5 mg once a week, which she tolerates well after initial side effects of lightheadedness. She also takes insulin glargine 22 units at bedtime and metformin 1500 mg daily with breakfast. She reports an A1c of 6.5 today, down from 7.1 in May and 12.5 a year ago. She is actively trying to lose weight by staying active and following dietary recommendations, including consuming carbohydrates. She reports eating twice a day but is considering increasing to three meals a day. Isai has a history of fatty liver disease and was previously scheduled for a liver biopsy, which she did not complete due to fear. She has been on estrogen therapy for 10 years. She is also on lisinopril 10 mg daily, metoprolol tartrate 25 mg BID, and rosuvastatin 20 mg daily. She denies any current liver issues but has a history of elevated liver enzymes and an enlarged liver on ultrasound. Her last set of liver enzymes were normal in May. She denies any issues with her feet and has not had any surgeries. She is due for a mammogram and has not had one in the last couple of years. She denies any lumps or bumps in her breasts and checks them regularly. She also denies any bladder issues and has no family history of prostate cancer. She is a former smoker, having quit 11 years ago, and denies any current use of tobacco, vaping, or marijuana. Isai is transgender and receives gender-affirming care from Dr. Guthrie at the [facility] in [place]. She has upcoming appointments for gender-affirming care and with a manager nc in February. She is considering establishing care with the current clinician for diabetes management. I reviewed past medical, surgical, social, and family histories today and updated chart. Allergies, chronic medications, and supplements were also reviewed. 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 dulaglutide (TRULICITY) 4.5 mg/0.5 mL pen injector Inject 4.5 mg subcutaneously one time a week. estradiol (ESTRACE) 2 mg tablet Take 1 tablet by mouth once daily. Blood-Glucose Sensor (DEXCOM G7 SENSOR) kali Apply new sensor every ten (10) days. propylene glycoL (SYSTANE BALANCE) 0.6 % drop Use 1 Drop in both eyes as needed. Lancets Use with blood glucose test once daily. Insulin Dep? No lisinopril (ZESTRIL) 10 mg tablet Take 1 tablet by mouth once daily. metoprolol tartrate, short acting, (LOPRESSOR) 25 mg tablet Take 1 tablet by mouth two times a day. metFORMIN ER (GLUCOPHAGE XR) 500 mg 24 hr tablet Take 3 tablets by mouth daily with breakfast. rosuvastatin (CRESTOR) 20 mg tablet Take 1 tablet by mouth once daily. Insulin [place], Disposable, (PEN NEEDLE) 32 gauge x 5/32 Use to inject insulin up to 4 times per day as directed. Blood-Glucose Meter,Continuous (DEXCOM G7 ADJUNCT FACULTY) [facility] [place] Use to check blood sugar at least four (4) times daily. izevl-3p-vxy-epa-fish oil (OMEGA-3 FISH OIL) 300-1,000 mg cap Take 1 capsule by mouth once daily. apixaban (ELIQUIS) 5 mg tab(s) Take 1 tablet by mouth two times a day. (Patient not taking: R (more content not included)... [facility] 08-09-2024 Telephone encounter Note I will fill Rx as requested. The patient is overdue for a visit. Please remind the patient to set up a medication surveillance visit. Thank you! [facility] 08-09-2024 Miscellaneous Notes I will fill Rx as requested. The patient is overdue for a visit. Please remind the patient to set up a medication surveillance visit. Thank you! Last office visit:11/24/22 Last virtual visit: 03/23/23 Next office visit: none Patient Comment: I have been out of the medicine for two days now. documented in this encounter [facility] 08-09-2024 Telephone encounter Note Last office visit:11/24/22 Last virtual visit: 03/23/23 Next office visit: none Patient Comment: I have been out of the medicine for two days now. [facility] 06-04-2024 Note HNO ID: [id number] Author: TORRIE HOWARD RPh Service: ? Author Type: Pharmacist Type: Progress Notes Filed: 06/04/2024 12:04 Note Text: Primary Care Pharmacy Visit CC (Reason for Consult): Diabetes (E11.65) Type 2 diabetes mellitus with hyperglycemia, without long-term current use of insulin (HCC) (primary encounter diagnosis) Goal: A1c < 7% Last Collaborating Provider Visit: 03/23/23 Isai Graham is a 54 year old adult presenting for follow up visit virtually. Patient consents to pharmacy collaborative practice agreement. Interim Events: ED at [place] in late February 2023 for high BG and feeling like passing out; not admitted 03/10/23: referred to PharmD to help with DM mngt 03/16: initial PharmD visit; insulin increased; advised to read nutrition labels and limit Total Carbs; encouraged lifestyle mods, CGM ordered; plan to discuss GLP1 at future visit 03/22: Endo switched metformin to ER and increased dose; Trulicity started; dietary mods encouraged 03/23: no med changes 04/04: no med changes since endo recently started Trulicity 05/23: Trulicity increased 07/12: Trulicity increased to 4.5mg weekly, but that wasn't in stock so 3mg resumed 07/19: rosuvastatin started 11/15: Dexcom CGM ordered 12/11: Mealtime insulin stopped 12/25: metformin increased and glargine decreased; mealtime insulin stopped 02/22: ED for [place] Palsy 03/26: pt reported being off Trulicity for ~1.5 mo and had high Bgs from steroids; Trulicity restarted from 0.75mg weekly with directions for rapid titration up to 3mg weekly 04/30: Trulicity increased 05/18: endo ordered Ozempic to replace trulicity; Ozempic not covered so Trulicity increased HPI: Due to take last dose of Trulicity 3mg today (has been taking the 3mg dose so far to use up remaining supply). Tolerated the Trulicity dose increase from 1.5mg to 3mg well. Current DM Medications: Metformin ER 500mg tabs - 1500mg daily Dulaglutide (Trulicity) 4.5mg weekly on Mondays (first dose of 4.5mg will be next week; has been taking 3mg to use up supply) Insulin glargine (Lantus) 22 units QHS Past DM medications: Trulicity - headache Metformin 1000mg BID - diarrhea Admelog CGM Data Preventative Medications: On RADHA/ARB: Yes On Statin: Yes ROS: Patient denies CP, SOB, MARVIN, blurred vision, dizziness or lightheadedness Patient denies symptoms of hypoglycemia (sweating, anxiety, palpitations, hunger, and tremor) Patient denies symptoms of hyperglycemia (polyuria, polydipsia, polyphagia) Patient denies potential medication adverse effects DIET/EXERCISE/SOCIAL Hx: Still running with dogs a lot Eating more salads MEDICATIONS: Pill bottles are not present. Adherence: denies missed doses. Pharmacy: [facility] [address] [place] [address] [address] [facility] - [phone] Rx coverage: Payor: [facility] MEDICAID / Plan: [facility] MEDICAID / Product Type: Medicaid / Medications affordable? 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 ALLERGIES Allergen Reactions Atorvastatin Myalgia Severe muscle cramps Penicillins Unknown Medication List Medication Directions Comments Action/Plan apixaban (ELIQUIS) 5 mg tab(s) Take 1 tablet by mouth two times a day. Blood-Glucose Meter,Continuous (DEXCOM G7 ADJUNCT FACULTY) misc Use to check blood sugar at least four (4) times daily. Blood-Glucose Sensor (DEXCOM G7 SENSOR) kali Apply new sensor every ten (10) days. COMPOUNDED PRESCRIPTION Initiate CPAP @ 13 cm of water with humidification mask (per patient preference) optional chin strap (if indicated) and lifetime supplies DX: BE 327.23 estradiol (ESTRACE) 2 mg tablet Take 1 tablet by mouth once daily. insulin glargine (BASAGLAR KWIKPEN U-100 INSULIN) 100 unit/mL (3 mL) Inject 22 Units subcutaneously daily at bedtime. Insulin [place], Disposable, (PEN NEEDLE) 32 gauge x 5/32 Use to inject insulin up to 4 times per day as directed. Lancets Use with blood glucose test once daily. Insulin Dep? No lisinopril (ZESTRIL) 10 mg tablet Take 1 tablet by mouth once daily. metFORMIN ER (GLUCOPHAGE XR) 500 mg 24 hr tablet Take 3 tablets by mouth daily with breakfast. metoprolol tartrate, short acting, (LOPRESSOR) 25 mg tablet Take 1 tablet by mouth two times a day. homdp-9e-oin-epa-fish oil (OMEGA-3 FISH OIL) 300-1,000 mg cap Take 1 capsule by mouth once daily. propylene glycoL (SYSTANE BALANCE) 0.6 % drop Use 1 D (more content not included)... [facility] 05-21-2024 Telephone encounter Note Images from the original note were not included. Dear Provider, Your patient's medication semaglutide (OZEMPIC) 0.25 mg or 0.5 mg (2 mg/3 mL) pen was denied. Denial letters are sent directly to the patient and at times to the healthcare providers. If we receive a denial letter, it will be indexed for your review. If you want to appeal the decision. Please submit your request via staff message to the [facility] Auth Appeals Pool ([phone]). You can find templates listed below to support your appeal in [facility] (Epic drop down, select patient care, select send letter). If it is an urgent request, you can email the [facility] auth Team at . Please make sure the documents below are completed in order to process your request. If the appeal is denied, do you want to schedule a peer to peer Yes/No. We will schedule peer to peer automatically if yes. Thank You, Mohinder [facility] Auth Appeals Team Mohinder PA Appeal letter Mohinder ND Letter of Medical Necessity [facility] Denied Note from payer: Coverage is provided when the member meets all the followin. Member has a history of at least 120 days of therapy with THREE preferred medications in this UPDL category. ONE of the 120 day trials must be with a drug in the same drug class, Victoza (18 MG/3 ML PEN) (Brand name is preferred by the plan) or Trulicity (0.75 mg, 1.5 mg, 3 mg, and 4.5 mg)]. Other trials may include but are not limited to: Farxiga 5 and 10 mg (Brand name is preferred by the plan), Glimepiride, Glipizide, Januvia, Jardiance 10 and 25 mg and Metformin IR 500 mg, 850 mg, 1000 mg and ER (generics of Glucophage); 2. Member has had an inadequate clinical response (the inability to reach A1C goal (less than 7%) after at least 120 days of current regimen, with use of two or more drugs concomitantly per ADA ([place] Diabetes Association) guidelines and; 3. Member has documented adherence and appropriate dose escalation (must achieve maximum recommended dose or document that maximum recommended dose is not tolerated or is clinically inappropriate) and; 4. Documentation includes a patient specific A1C goal if less than 7% and must include current A1C (within the last 6 months). The [facility] Policy for Medical Necessity as posted on the [facility] website and [place] Unified Preferred Drug List criteria were reviewed and per [place] Administrative Code Rule 5160-1-01 (C) and (B), a medically necessary service must include: generally accepted standards of medical practice, be clinically appropriate in administration, treatment and outcome and be the lowest cost alternative to effectively treat the condition. Please contact your provider to assist you with other treatment options that might be covered under your benefit package, or other services that might be available through the community. Payer: [facility] Gayle Prior Ticket Maker Endocrinology [facility] Met[facility] 05-21-2024 Miscellaneous Notes Images from the original note were not included. Dear Provider, Your patient's medication semaglutide (OZEMPIC) 0.25 mg or 0.5 mg (2 mg/3 mL) pen was denied. Denial letters are sent directly to the patient and at times to the healthcare providers. If we receive a denial letter, it will be indexed for your review. If you want to appeal the decision. Please submit your request via staff message to the Mohinder [facility] Auth Appeals Pool ([id number]). You can find templates listed below to support your appeal in [employer] (Epic drop down, select patient care, select send letter). If it is an urgent request, you can email the [facility] auth Team at . Please make sure the documents below are completed in order to process your request. If the appeal is denied, do you want to schedule a peer to peer Yes/No. We will schedule peer to peer automatically if yes. Thank You, Mohinder Prior Auth Appeals Team Mohinder MCCLELLAND Appeal letter Mohinder MCCLELLAND Letter of Medical Necessity Mohinder MCCLELLAND [employer] Denied Note from payer: Coverage is provided when the member meets all the followin. Member has a history of at least 120 days of therapy with THREE preferred medications in this UPDL category. ONE of the 120 day trials must be with a drug in the same drug class, Victoza (18 MG/3 ML PEN) (Brand name is preferred by the plan) or Trulicity (0.75 mg, 1.5 mg, 3 mg, and 4.5 mg)]. Other trials may include but are not limited to: Farxiga 5 and 10 mg (Brand name is preferred by the plan), Glimepiride, Glipizide, Januvia, Jardiance 10 and 25 mg and Metformin IR 500 mg, 850 mg, 1000 mg and ER (generics of Glucophage); 2. Member has had an inadequate clinical response (the inability to reach A1C goal (less than 7%) after at least 120 days of current regimen, with use of two or more drugs concomitantly per ADA ([place] Diabetes Association) guidelines and; 3. Member has documented adherence and appropriate dose escalation (must achieve maximum recommended dose or document that maximum recommended dose is not tolerated or is clinically inappropriate) and; 4. Documentation includes a patient specific A1C goal if less than 7% and must include current A1C (within the last 6 months). The [facility] Policy for Medical Necessity as posted on the [facility] website and [facility] Preferred Drug List criteria were reviewed and per [place] Administrative Code Rule 5160-1-01 (C) and (B), a medically necessary service must include: generally accepted standards of medical practice, be clinically appropriate in administration, treatment and outcome and be the lowest cost alternative to effectively treat the condition. Please contact your provider to assist you with other treatment options that might be covered under your benefit package, or other services that might be available through the community. Payer: [facility] Gayle Prior Ticket Maker Endocrinology [facility] Met[facility] Initiated PA for semaglutide (OZEMPIC) 0.25 mg or 0.5 mg (2 mg/3 mL) pen through [facility] Chart notes attached Questions Completed Waiting for determination Gayle Prior Ticket Maker Endocrin[facility] Met[facility] documented in this encounter [facility] 05-21-2024 Telephone encounter Note Initiated PA for semaglutide (OZEMPIC) 0.25 mg or 0.5 mg (2 mg/3 mL) pen through [facility] Chart notes attached Questions Completed Waiting for determination Gayle Prior Ticket Maker Endocrinology and Metabolism [facility] 05-18-2024 Telephone encounter Note Images from the original note were not included. Ghislaine Brown MD P Lk Clerical Pool See Wood Molder in 3 months , me in 6 months , thx 1st attempt sent to schedule Santa Mcclendon [facility] 05-18-2024 Miscellaneous Notes Images from the original note were not included. Ghislaine Brown MD P Lkwd Clerical Pool See Wood Molder in 3 months , me in 6 months , thx 1st attempt sent to schedule Santa Mcclendon documented in this encounter [facility] 05-18-2024 Instructions Ghislaine Brown MD - 05/18/2024 3:54 PM EDT Continue taking your current medications as prescribed: - Trulicity 3 mg once a week. - Lantus (Basaglar) insulin 22 units at bedtime. - Estrogen tablets 2 mg once a day. - Metformin 3 pills a day with breakfast. - Lisinopril 10 mg once a day. - Metoprolol 25 mg twice a day. - Rosuvastatin (Crestor) as prescribed. - Complete lab tests for A1c, kidney function, liver function, and thyroid function; no fasting required. - If your A1c is above 7, your clinician will attempt to switch you to Ozempic 0.5 mg weekly; prescription sent to [facility] in [place]. - Follow a balanced diet with a focus on protein and fiber; consider consulting a manager nc if needed. - Incorporate strength training exercises twice a week: 10 minutes of upper body and 10 minutes of lower body exercises. - Continue regular walking and physical activity. - Next follow-up appointment in 3 months with a nurse practitioner, and in 6 months with your clinician. documented in this encounter [facility] 05-18-2024 Note HNO ID: [id number] Author: GHISLAINE BROWN MD Service: ? Author Type: Physician Type: Progress Notes Filed: 05/18/2024 17:02 Note Text: [facility] RETURN VISIT This visit was conducted as a virtual visit. HISTORY OF PRESENT ILLNESS: Age: [age] year old with Class II Obesity , DM-2 since 3 years - started on Insulin since the last 3 years , Gender Dysphoria- on Hormonal treatment since 2011 - estrogen , MASLD , HTN, Hyperlipidemia , HO A Flutter- on AC with REJI Gomes- seeing cardio- Dr Rojas , BE - using her CPAP nightly : Patient comes today for follow up of weight management. Weight Curve Height: 5'7 Goals for weight loss : 170-180 pounds Discussed disease centric goals : 5% TWL: Quality of life improvement, joint pain reduction, 10% TWL: BE/ Fatty liver risk reduction, >15% CVD and mortality risk reduction - pt aware Weight Loss Medication: -- Trulicity 3 mg once weekly- no side effects - Metformin XR 500 mg 3 tabs po q day - Lantus 22 units subcut q hs - FSBS : Dexcom: 248 after lunch ; fasting : 113 -137 Hemoglobin A1C (%) Date Value 12/06/2023 6.1 07/19/2023 5.8 Hemoglobin A1C (POCT) (%) Date Value 03/22/2023 12.5 ) CMP: Glucose 91 12/06/2023 BUN 10 12/06/2023 Creatinine 0.78 12/06/2023 Sodium 140 12/06/2023 Potassium 4.5 12/06/2023 Chloride 107 12/06/2023 CO2 22 12/06/2023 Protein, Total 6.9 12/06/2023 Albumin 4.1 12/06/2023 Calcium 9.2 12/06/2023 Alkaline Phosphatase 57 12/06/2023 Bilirubin, Total <0.2 12/06/2023 AST 25 12/06/2023 ALT 27 12/06/2023 Diet: -- 24 hr food recall: B: beef ramen, hot sauce L: 2:30 pm: Karlee: hamburger , fries D : chicken - shaikh seared , - Diet includes high-carbohydrate foods; reports cravings for carbohydrates. - Typically eats once a day; - Occasionally eats due to stress or emotion; denies binge eating. - Has reduced late-night snacking over the past two months. 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 Other pertinent comorbidities: -- per HPI Pertinent Labs CMP: BUN 10 12/06/2023 BUN 11 11/10/2023 Albumin 4.1 12/06/2023 Albumin 4.1 11/10/2023 Sodium 140 12/06/2023 Sodium 139 11/10/2023 AST 25 12/06/2023 AST 21 11/10/2023 ALT 27 12/06/2023 ALT 27 11/10/2023 Calcium 9.2 12/06/2023 Calcium 9.9 11/10/2023 TSH Date Value Ref Range Status 03/24/2022 1.050 0.270 - 4.200 mIU/L Final Hemoglobin A1C (%) Date Value 12/06/2023 6.1 07/19/2023 5.8 Hemoglobin A1C (POCT) (%) Date Value 03/22/2023 12.5 ) REVIEW OF SYSTEMS: Review of Systems MEDICATIONS: Current Outpatient Medications on File Prior to Visit Medication Sig estradiol (ESTRACE) 2 mg tablet Take 1 tablet by mouth once daily. Blood-Glucose Sensor (Embedded Chat G7 SENSOR) kali Apply new sensor every ten (10) days. dulaglutide (TRULICITY) 3 mg/0.5 mL pen injector Inject 3 mg subcutaneously one time a week. insulin glargine (BASAGLAR KWIKPEN U-100 INSULIN) 100 unit/mL (3 mL) Inject 22 Units subcutaneously daily at bedtime. propylene glycoL (SYSTANE BALANCE) 0.6 % drop Use 1 Drop in both eyes as needed. Lancets Use with blood glucose test once daily. Insulin Dep? No lisinopril (ZESTRIL) 10 mg tablet Take 1 tablet by mouth once daily. apixaban (ELIQUIS) 5 mg tab(s) Take 1 tablet by mouth two times a day. metoprolol tartrate, short acting, (LOPRESSOR) 25 mg tablet Take 1 tablet by mouth two times a day. metFORMIN ER (GLUCOPHAGE XR) 500 mg 24 hr tablet Take 3 tablets by mouth daily with breakfast. rosuvastatin (CRESTOR) 20 mg tablet Take 1 tablet by mouth once daily. Insulin [place], Disposable, (PEN NEEDLE) 32 gauge x 5/32 Use to inject insulin up to 4 times per day as directed. Blood-Glucose Meter,Continuous (DEXCOM G7 ADJUNCT FACULTY) misc Use to check blood sugar at least four (4) times daily. bfarf-2k-hrb-epa-fish oil (OMEGA-3 FISH OIL) 300-1,000 mg cap Take 1 capsule by mouth once daily. COMPOUNDED PRESCRIPTION Initiate CPAP @ 13 cm of water with humidification mask (per patient preference) optional chin strap (if indicated) and lifetime supplies DX: BE 327.23 No current facility-administered medications on file prior to visit. SIGNIFICANT PAST MEDICAL HISTORY, SOCIAL HISTORY AND FAMILY HISTORY: PAST MEDICAL HISTORY Diagnosis Date Hepatic steatosis Hormonal imbalance in transgender patien (more content not included)... [facility] 05-18-2024 History of Presen t illness Narrative Images from the original note were not included. [facility] RETURN VISIT This visit was conducted as a virtual visit. HISTORY OF PRESENT ILLNESS: Age: [age] year old with Class II Obesity , DM-2 since 3 years - started on Insulin since the last 3 years , Gender Dysphoria- on Hormonal treatment since 2011 - estrogen , MASLD , HTN, Hyperlipidemia , HO A Flutter- on AC with REJI Gomes- seeing cardio- Dr Rojas BE - using her CPAP nightly : Patient comes today for follow up of weight management. Weight Curve Height: 5'7 Goals for weight loss : 170-180 pounds Discussed disease centric goals : 5% TWL: Quality of life improvement, joint pain reduction, 10% TWL: BE/ Fatty liver risk reduction, >15% CVD and mortality risk reduction - pt aware Weight Loss Medication: -- Trulicity 3 mg once weekly- no side effects - Metformin XR 500 mg 3 tabs po q day - Lantus 22 units subcut q hs - FSBS : Dexcom: 248 after lunch ; fasting : 113 -137 Hemoglobin A1C (%) Date Value 12/06/2023 6.1 07/19/2023 5.8 Hemoglobin A1C (POCT) (%) Date Value 03/22/2023 12.5 ) CMP: Glucose 91 12/06/2023 BUN 10 12/06/2023 Creatinine 0.78 12/06/2023 Sodium 140 12/06/2023 Potassium 4.5 12/06/2023 Chloride 107 12/06/2023 CO2 22 12/06/2023 Protein, Total 6.9 12/06/2023 Albumin 4.1 12/06/2023 Calcium 9.2 12/06/2023 Alkaline Phosphatase 57 12/06/2023 Bilirubin, Total <0.2 12/06/2023 AST 25 12/06/2023 ALT 27 12/06/2023 Diet: -- 24 hr food recall: B: beef ramen, hot sauce L: 2:30 pm: Karlee: hamburger , fries D : chicken - shaikh seared , - Diet includes high-carbohydrate foods; reports cravings for carbohydrates. - Typically eats once a day; - Occasionally eats due to stress or emotion; denies binge eating. - Has reduced late-night snacking over the past two months. 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 Other pertinent comorbidities: -- per HPI Pertinent Labs CMP: BUN 10 12/06/2023 BUN 11 11/10/2023 Albumin 4.1 12/06/2023 Albumin 4.1 11/10/2023 Sodium 140 12/06/2023 Sodium 139 11/10/2023 AST 25 12/06/2023 AST 21 11/10/2023 ALT 27 12/06/2023 ALT 27 11/10/2023 Calcium 9.2 12/06/2023 Calcium 9.9 11/10/2023 TSH Date Value Ref Range Status 03/24/2022 1.050 0.270 - 4.200 mIU/L Final Hemoglobin A1C (%) Date Value 12/06/2023 6.1 07/19/2023 5.8 Hemoglobin A1C (POCT) (%) Date Value 03/22/2023 12.5 ) REVIEW OF SYSTEMS: Review of Systems MEDICATIONS: Current Outpatient Medications on File Prior to Visit Medication Sig estradiol (ESTRACE) 2 mg tablet Take 1 tablet by mouth once daily. Blood-Glucose Sensor (DEXCOM G7 SENSOR) kali Apply new sensor every ten (10) days. dulaglutide (TRULICITY) 3 mg/0.5 mL pen injector Inject 3 mg subcutaneously one time a week. insulin glargine (BASAGLAR KWIKPEN U-100 INSULIN) 100 unit/mL (3 mL) Inject 22 Units subcutaneously daily at bedtime. propylene glycoL (SYSTANE BALANCE) 0.6 % drop Use 1 Drop in both eyes as needed. Lancets Use with blood glucose test once daily. Insulin Dep? No lisinopril (ZESTRIL) 10 mg tablet Take 1 tablet by mouth once daily. apixaban (ELIQUIS) 5 mg tab(s) Take 1 tablet by mouth two times a day. metoprolol tartrate, short acting, (LOPRESSOR) 25 mg tablet Take 1 tablet by mouth two times a day. metFORMIN ER (GLUCOPHAGE XR) 500 mg 24 hr tablet Take 3 tablets by mouth daily with breakfast. rosuvastatin (CRESTOR) 20 mg tablet Take 1 tablet by mouth once daily. Insulin [place], Disposable, (PEN NEEDLE) 32 gauge x 5/32 Use to inject insulin up to 4 times per day as directed. Blood-Glucose Meter,Continuous (DEXCOM G7 ADJUNCT FACULTY) misc Use to check blood sugar at least four (4) times daily. sjhxg-6r-yjr-epa-fish oil (OMEGA-3 FISH OIL) 300-1,000 mg cap Take 1 capsule by mouth once daily. COMPOUNDED PRESCRIPTION Initiate CPAP @ 13 cm of water with humidification mask (per patient preference) optional chin strap (if indicated) and lifetime supplies DX: BE 327.23 No current facility-administered medications on file prior to visit. SIGNIFICANT PAST MEDICAL HISTORY, SOCIAL HISTORY AND FAMILY HISTORY: PAST MEDICAL HISTORY Diagnosis Date Hepatic steatosis Hormonal imbalance in transgender patient HTN (hypertension) Prediabetes FAMILY HISTORY Problem Relation Age of Onset Obstructive Sleep Apnea Mother Diabetes Father other (fungal infection in the blood) Father Stroke Father COPD Maternal Grandmother No Ocular Disease No Family History Social History Tobacco Use Smoking status: Former Current packs/day: 0.50 Types: Cigarettes Smokeless tobacco: Never Tobacco comments: quit 2011 Vaping Use Vaping status: Former Substance Use Topics Alcohol use: No Drug use: No PHYSICAL EXAM: Isai Graham is a 54 year old year old adult who looks her stated age. Vital Signs Ht 170.2 cm (5' 7) Wt 112.5 kg (248 lb) BMI 38.84 kg/m General: no acute distress, feeling well Eyes: no exophthalmia, no lig lag, extraocular movements intact. No redness. Thyroid: not visibly enlarged Heart: no chest pain Chest: Breathing comfortably Abdomen: no abdominal pain Psychiatry: affect is normal Neurologic: alert and oriented to time, space and place PERTINENT LABORATORY AND IMAGING:All pertinent laboratory results were reviewed. Please see HPI for further details. IMPRESSION/PLAN: Encounter Diagnosis ICD-10-CM 1. Type 2 diabetes mellitus with diabetic neuropathy, with long-term current use of insulin (HCC) E11.40 Z79.4 2. Hepatic steatosis K76.0 3. Primary hypertension I10 4. BE (obstructive sleep apnea) G47.33 5. Typical atrial flutter (HCC) I48.3 6. BMI (body mass index), pediatric, 5% to less than 85% for age Z68.52 7. BMI 38.0-38.9,adult Z68.38 Patient comes today for weight management, obesity and its comorbidities treatment. Overall stable. Classification: Obesity Class II Current Weight Loss: none Current Diet: Low Carb Mediterranean diet. Medication: - Currently on Trulicity 3 mg weekly, Lantus 22 units at bedtime, and Metformin ER three tablets with breakfast. - Blood glucose levels range from 113 to 137 mg/dL fasting. - No side effects reported from Trulicity. - Ordered HbA1c test; patient to walk in for lab work. - Discussed potential switch to Ozempic 0.5 mg if HbA1c is above 7%; explained insurance requirements. - Educated on importance of dietary changes; referral to manager nc left active. - eat intentionally, avoid skipping meals -advised to avoid processed and ultra processed meals - avoid sugar free foods/ avoid artificial sweeteners - pt aware - Target lean protein intake at 90-100 gm / day- divided into 30 gm with each meal/ snack - always paired with a fibre ( fruit or vegetable or whole grains) - the proteins should be lean- so egg white, white meat chicken or turkey , or vegan proteins like beans/ lentils/ legumes/ tofu / chick peas - Discussed weight management strategies including dietary changes and increased physical activity. - Recommended strength training twice a week. - Patient is compliant with CPAP use every night. - Prebiotic and Probiotic: helps with healthy gut microbiome, helps with healthy weight and optimal cardiac health . 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 All questions answered today. I have communicated my name and active licensure. The patient's identity and physical location were verified at the time of this visit. Either the patient or their legal security systems sales representative has been informed of the risks and benefits of -- and alternatives to -- treatment through a remote evaluation and consents to proceed with the evaluation remotely. Ghislaine Brown MD Obesity Medicine Endocrinology and Metabolism [facility] documented in this encounter [facility] 05-08-2024 Telephone encounter Note Patient established with new PCP 02/2024. All meds except gender care should be managed through them. Patient needs [facility] follow up visit scheduled. [facility] 05-08-2024 Miscellaneous Notes Patient established with new PCP 02/2024. All meds except gender care should be managed through them. Patient needs [facility] follow up visit scheduled. Pharmacy electronically requests the following refill(s) Last visit 03/23/23 Requested Prescriptions Pending Prescriptions Disp Refills Blood-Glucose Meter,Continuous (DEXCOM G7 ADJUNCT FACULTY) misc 1 Each 0 Sig: Use to check blood sugar at least four (4) times daily. Lancets 100 Each 5 Sig: Use with blood glucose test once daily. Insulin Dep? No lisinopril (ZESTRIL) 10 mg tablet 90 tablet 3 Sig: Take 1 tablet by mouth once daily. apixaban (ELIQUIS) 5 mg tab(s) 180 tablet 1 Sig: Take 1 tablet by mouth two times a day. metoprolol tartrate, short acting, (LOPRESSOR) 25 mg tablet 180 tablet 3 Sig: Take 1 tablet by mouth two times a day. estradiol (ESTRACE) 2 mg tablet 90 tablet 3 Sig: Take 1 tablet by mouth once daily. Violeta Beltran LPN documented in this encounter [facility] 05-08-2024 Telephone encounter Note Pharmacy electronically requests the following refill(s) Last visit 03/23/23 Requested Prescriptions Pending Prescriptions Disp Refills Blood-Glucose Meter,Continuous (DEXCOM G7 ADJUNCT FACULTY) misc 1 Each 0 Sig: Use to check blood sugar at least four (4) times daily. Lancets 100 Each 5 Sig: Use with blood glucose test once daily. Insulin Dep? No lisinopril (ZESTRIL) 10 mg tablet 90 tablet 3 Sig: Take 1 tablet by mouth once daily. apixaban (ELIQUIS) 5 mg tab(s) 180 tablet 1 Sig: Take 1 tablet by mouth two times a day. metoprolol tartrate, short acting, (LOPRESSOR) 25 mg tablet 180 tablet 3 Sig: Take 1 tablet by mouth two times a day. estradiol (ESTRACE) 2 mg tablet 90 tablet 3 Sig: Take 1 tablet by mouth once daily. Violeta Beltran LPN [facility] 05-08-2024 Telephone encounter Note [facility] 03/23/23 Next appt not scheduled Requested Prescriptions Pending Prescriptions Disp Refills Blood-Glucose Sensor (DEXCOM G7 SENSOR) kali 9 Each 3 Sig: Apply new sensor every ten (10) days. [facility] 05-08-2024 Miscellaneous Notes [facility] 03/23/23 Next appt not scheduled Requested Prescriptions Pending Prescriptions Disp Refills Blood-Glucose Sensor (DEXCOM G7 SENSOR) kali 9 Each 3 Sig: Apply new sensor every ten (10) days. documented in this encounter [facility] 04-30-2024 History of Presen t illness Narrative Images from the original note were not included. Primary Care Pharmacy Visit CC (Reason for Consult): Diabetes (E11.40, Z79.4) Type 2 diabetes mellitus with diabetic neuropathy, with long-term current use of insulin (HCC) (primary encounter diagnosis) Goal: A1c < 7% Last Collaborating Provider Visit: 03/23/23 Isai Graham is a 54 year old adult presenting for follow up visit virtually. Patient consents to pharmacy collaborative practice agreement. Interim Events: ED at [facility] in late February 2023 for high BG and feeling like passing out; not admitted 03/10/23: referred to PharmD to help with DM mngt 03/16: initial PharmD visit; insulin increased; advised to read nutrition labels and limit Total Carbs; encouraged lifestyle mods, CGM ordered; plan to discuss GLP1 at future visit 03/22: Endo switched metformin to ER and increased dose; Trulicity started; dietary mods encouraged 03/23: no med changes 04/04: no med changes since endo recently started Trulicity 05/23: Trulicity increased 07/12: Trulicity increased to 4.5mg weekly, but that wasn't in stock so 3mg resumed 07/19: rosuvastatin started 11/15: Dexcom CGM ordered 12/11: Mealtime insulin stopped 12/25: metformin increased and glargine decreased; mealtime insulin stopped 02/22: ED for [place] Palsy 03/26: pt reported being off Trulicity for ~1.5 mo and had high Bgs from steroids; Trulicity restarted from 0.75mg weekly with directions for rapid titration up to 3mg weekly HPI: She restarted Trulicity, has tolerated well. Currently on the 1.5mg dose, has had 4 doses and has 1 pen remaining. Current DM Medications: Metformin ER 500mg tabs - 1500mg daily Dulaglutide (Trulicity) 3mg weekly on Sundays (still taking 1.5mg weekly) Insulin glargine (Lantus) 25 units QHS (dropped back to 22 units once restarting Trulicity) Past DM medications: Trulicity - headache Metformin 1000mg BID - diarrhea Admelog CGM Data BG right now in 260s. Had a small rack of ribs, pretzel, unsweetened tea. Preventative Medications: On RADHA/ARB: Yes On Statin: Yes ROS: Patient denies CP, SOB, MARVIN, blurred vision, dizziness or lightheadedness Patient denies symptoms of hypoglycemia (sweating, anxiety, palpitations, hunger, and tremor) Patient denies symptoms of hyperglycemia (polyuria, polydipsia, polyphagia) Patient denies potential medication adverse effects DIET/EXERCISE/SOCIAL Hx: No changes over the past month Getting more exercise with nicer weather. Taking dogs out daily, walking mostly, doing some running. MEDICATIONS: Pill bottles are not present. Adherence: denies missed doses. Pharmacy: [facility] [address] [place] [id number] [address] [facility] [phone] Rx coverage: Payor: [facility] MEDICAID / Plan: [facility] MEDICAID / Product Type: Medicaid / Medications affordable? 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 ALLERGIES Allergen Reactions Atorvastatin Myalgia Severe muscle cramps Penicillins Unknown Medication List Medication Directions Comments Action/Plan apixaban (ELIQUIS) 5 mg tab(s) Take 1 tablet by mouth two times a day. Blood-Glucose Meter,Continuous (DEXCOM G7 ADJUNCT FACULTY) misc Use to check blood sugar at least four (4) times daily. Blood-Glucose Sensor (DEXCOM G7 SENSOR) kali Apply new sensor every ten (10) days. COMPOUNDED PRESCRIPTION Initiate CPAP @ 13 cm of water with humidification mask (per patient preference) optional chin strap (if indicated) and lifetime supplies DX: BE 327.23 dulaglutide (TRULICITY) 0.75 mg/0.5 mL pen injector Inject 0.75 mg subcutaneously one time a week. dulaglutide (TRULICITY) 1.5 mg/0.5 mL pen injector Inject 1.5 mg subcutaneously one time a week. Take this AFTER completing course of 0.75mg pens. estradiol (ESTRACE) 2 mg tablet Take 1 tablet by mouth once daily. insulin glargine (BASAGLAR KWIKPEN U-100 INSULIN) 100 unit/mL (3 mL) Inject 25 Units subcutaneously daily at bedtime. Insulin [place], Disposable, (PEN NEEDLE) 32 gauge x 5/32 Use to inject insulin up to 4 times per day as directed. Lancets Use with blood glucose test once daily. Insulin Dep? No lisinopril (ZESTRIL) 10 mg tablet Take 1 tablet by mouth once daily. metFORMIN ER (GLUCOPHAGE XR) 500 mg 24 hr tablet Take 3 tablets by mouth daily with breakfast. metoprolol tartrate, short acting, (LOPRESSOR) 25 mg tablet Take 1 tablet by mouth two times a day. osiys-1l-hey-epa-fish oil (OMEGA-3 FISH OIL) 300-1,000 mg cap Take 1 capsule by mouth once daily. propylene glycoL (SYSTANE BALANCE) 0.6 % drop Use 1 Drop in both eyes as needed. rosuvastatin (CRESTOR) 20 mg tablet Take 1 tablet by mouth once daily. Exam: There were no vitals taken for this visit. Last 3 Encounter BP Readings: Date: BP: 03/01/2024 118/70 03/22/2023 118/67 01/19/2023 120/81 Wt: 109.8 kg (242 lb) BMI: 38.19 kg/(m^2) LABS: Reviewed Lab Results Component Value Date HBA1C 6.1 12/06/2023 HBA1C 5.8 07/19/2023 HBA1C 12.5 03/22/2023 HBA1C 6.0 07/22/2022 CMP: Glucose 91 12/06/2023 BUN 10 12/06/2023 Creatinine 0.78 12/06/2023 Sodium 140 12/06/2023 Potassium 4.5 12/06/2023 Chloride 107 12/06/2023 CO2 22 12/06/2023 Protein, Total 6.9 12/06/2023 Albumin 4.1 12/06/2023 Calcium 9.2 12/06/2023 Alkaline Phosphatase 57 12/06/2023 Bilirubin, Total <0.2 12/06/2023 AST 25 12/06/2023 ALT 27 12/06/2023 No results found for: GFR Estimated Creatinine Clearance (based on SCr of 0.78 mg/dL) Female: 102.3 mL/min Male: 124.4 mL/min Lab Results Component Value Date CHOL 129 12/06/2023 CHOL 216 11/10/2023 CHOL 194 04/14/2020 CHOL 227 12/29/2012 LDL 61 12/06/2023 LDL 120 04/14/2020 LDL 162 12/29/2012 HDL 47 12/06/2023 HDL 50 11/10/2023 HDL 51 04/14/2020 HDL 33 12/29/2012 TG 103 12/06/2023 TG 180 11/10/2023 TG 114 04/14/2020 TG 162 12/29/2012 The ASCVD Risk score (Rui DK, et al., 2019) failed to calculate for the following reasons: The valid total cholesterol range is 130 to 320 mg/dL Albumin/Creat Ratio (mg/g) Date Value 11/24/2022 <17 PHARMACOTHERAPY ASSESSMENT/PLAN: 1. Type 2 diabetes mellitus with diabetic neuropathy, with long-term current use of insulin (HCC) - ICD9: 250.60, 357.2, V58.67, ICD10: E11.40, Z79.4 A1c goal < 7%; controlled (last A1c 6.1%); TIR improved and at goal; no issues with lows; still having some large PPG spikes due to dietary choices; will increase Trulicity today, f/up in 1 month INCREASE Trulicity to 3mg weekly Counseled on potential GI ADEs with dose increase. Advised to contact me/office if has any sharp or stabbing abdominal pains, etc Continue other medications Encouraged to monitor CGM daily graph frequently to observe BG patterns and learn how different foods and portion sizes impact BG, then make dietary changes accordingly - DULAGLUTIDE 3 MG/0.5 ML SUBCUTANEOUS PEN INJECTOR Health Maintenance - Diabetes Topic Date Due Diabetic Foot Exam 09/01/2022 Urine Albumin:Creatinine Ratio 11/25/2023 Follow-up Patient is scheduled to see PCP team on 05/31. Patient to have f/up with PharmD team on 06/04. Patient verbalized understanding of instructions. Torrie Howard PharmD, BCPS Primary Care Clinical Pharmacist Time spent: 26 mins documented in this encounter [facility] 04-30-2024 Instructions Torrie Howard RPh - 04/30/2024 11:30 AM EDT It was wonderful talking with you today! Please see below for a summary of the information we discussed. Additionally, please feel free to send me a [employer] message if needed between appointments. If you feel I or any of your other caregivers have exceeded your expectations, please consider submitting your recognition through [email or web address] Thank you, Torrie Howard PharmD Medication Changes INCREASE Trulicity to 3mg weekly Continue all other medications as prescribed Goals Start reviewing Dexcom daily graph with more frequency. Learn how different food choices impact blood sugar, and make changes accordingly. Don't let being on Trulicity prevent your own efforts to improve dietary choices and exercise. documented in this encounter [facility] 04-30-2024 Note HNO ID: [id number] Author: TORRIE HOWARD RPh Service: ? Author Type: Pharmacist Type: Progress Notes Filed: 04/30/2024 12:03 Note Text: Primary Care Pharmacy Visit CC (Reason for Consult): Diabetes (E11.40, Z79.4) Type 2 diabetes mellitus with diabetic neuropathy, with long-term current use of insulin ([facility]) (primary encounter diagnosis) Goal: A1c < 7% Last Collaborating Provider Visit: 03/23/23 Isai Graham is a 54 year old adult presenting for follow up visit virtually. Patient consents to pharmacy collaborative practice agreement. Interim Events: ED at [facility] in late February 2023 for high BG and feeling like passing out; not admitted 03/10/23: referred to PharmD to help with DM mngt 03/16: initial PharmD visit; insulin increased; advised to read nutrition labels and limit Total Carbs; encouraged lifestyle mods, CGM ordered; plan to discuss GLP1 at future visit 03/22: Endo switched metformin to ER and increased dose; Trulicity started; dietary mods encouraged 03/23: no med changes 04/04: no med changes since endo recently started Trulicity 05/23: Trulicity increased 07/12: Trulicity increased to 4.5mg weekly, but that wasn't in stock so 3mg resumed 07/19: rosuvastatin started 11/15: Dexcom CGM ordered 12/11: Mealtime insulin stopped 12/25: metformin increased and glargine decreased; mealtime insulin stopped 02/22: ED for [place] Palsy 03/26: pt reported being off Trulicity for ~1.5 mo and had high Bgs from steroids; Trulicity restarted from 0.75mg weekly with directions for rapid titration up to 3mg weekly HPI: She restarted Trulicity, has tolerated well. Currently on the 1.5mg dose, has had 4 doses and has 1 pen remaining. Current DM Medications: Metformin ER 500mg tabs - 1500mg daily Dulaglutide (Trulicity) 3mg weekly on Sundays (still taking 1.5mg weekly) Insulin glargine (Lantus) 25 units QHS (dropped back to 22 units once restarting Trulicity) Past DM medications: Trulicity - headache Metformin 1000mg BID - diarrhea Admelog CGM Data BG right now in 260s. Had a small rack of ribs, pretzel, unsweetened tea. Preventative Medications: On RADHA/ARB: Yes On Statin: Yes ROS: Patient denies CP, SOB, MARVIN, blurred vision, dizziness or lightheadedness Patient denies symptoms of hypoglycemia (sweating, anxiety, palpitations, hunger, and tremor) Patient denies symptoms of hyperglycemia (polyuria, polydipsia, polyphagia) Patient denies potential medication adverse effects DIET/EXERCISE/SOCIAL Hx: No changes over the past month Getting more exercise with nicer weather. Taking dogs out daily, walking mostly, doing some running. MEDICATIONS: Pill bottles are not present. Adherence: denies missed doses. Pharmacy: [facility] [address] [place] [address] [address] [facility] [phone] Rx coverage: Payor: [employer] MEDICAID / Plan: [employer] MEDICA[employer] / Product Type: Medicaid / Medications affordable? 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 ALLERGIES Allergen Reactions Atorvastatin Myalgia Severe muscle cramps Penicillins Unknown Medication List Medication Directions Comments Action/Plan apixaban (ELIQUIS) 5 mg tab(s) Take 1 tablet by mouth two times a day. Blood-Glucose Meter,Continuous (DEXCOM G7 ADJUNCT FACULTY) misc Use to check blood sugar at least four (4) times daily. Blood-Glucose Sensor (DEXCOM G7 SENSOR) kali Apply new sensor every ten (10) days. COMPOUNDED PRESCRIPTION Initiate CPAP @ 13 cm of water with humidification mask (per patient preference) optional chin strap (if indicated) and lifetime supplies DX: BE 327.23 dulaglutide (TRULICITY) 0.75 mg/0.5 mL pen injector Inject 0.75 mg subcutaneously one time a week. dulaglutide (TRULICITY) 1.5 mg/0.5 mL pen injector Inject 1.5 mg subcutaneously one time a week. Take this AFTER completing course of 0.75mg pens. estradiol (ESTRACE) 2 mg tablet Take 1 tablet by mouth once daily. insulin glargine (BASAGLAR KWIKPEN U-100 INSULIN) 100 unit/mL (3 mL) Inject 25 Units subcutaneously daily at bedtime. Insulin [place], Disposable, (PEN NEEDLE) 32 gauge x 5/32 Use to inject insulin up to 4 times per day as directed. Lancets Use with blood glucose test once daily. Insulin Dep? No lisinopril (ZESTRIL) 10 mg tablet Take 1 tablet by mouth once daily. metFORMIN ER (GLUCOPHAGE XR) 500 mg 24 hr tablet Take 3 tablets by mouth daily with breakfast. metoprolol tartrate, sh (more content not included)... [facility] 04-23-2024 Telephone encounter Note Called patient for missed virtual visit this afternoon. She forgot and preferred to reschedule for next week. Denise rescheduled for 04/30. Torrie Howard PharmD, [facility] Primary Care Clinical Pharmacist [facility] Work Phone: 04-23-2024 Miscellaneous Notes Called patient for missed virtual visit this afternoon. She forgot and preferred to reschedule for next week. Denise rescheduled for 04/30. Torrie Howard PharmD, [facility] Primary Care Clinical Pharmacist documented in this encounter [facility] 03-26-2024 History of Presen t illness Narrative Images from the original note were not included. Primary Care Pharmacy Visit CC (Reason for Consult): Diabetes (E11.40, Z79.4) Type 2 diabetes mellitus with diabetic neuropathy, with long-term current use of insulin ([facility]) (primary encounter diagnosis) Goal: A1c < 7% Last Collaborating Provider Visit: 03/23/23 Isai Graham is a 54 year old adult presenting for follow up visit virtually. Patient consents to pharmacy collaborative practice agreement. Interim Events: ED at [facility] in late February 2023 for high BG and feeling like passing out; not admitted 03/10/23: referred to PharmD to help with DM mngt 03/16: initial PharmD visit; insulin increased; advised to read nutrition labels and limit Total Carbs; encouraged lifestyle mods, CGM ordered; plan to discuss GLP1 at future visit 03/22: Endo switched metformin to ER and increased dose; Trulicity started; dietary mods encouraged 03/23: no med changes 04/04: no med changes since endo recently started Trulicity 05/23: Trulicity increased 07/12: Trulicity increased to 4.5mg weekly, but that wasn't in stock so 3mg resumed 07/19: rosuvastatin started 11/15: Dexcom CGM ordered 12/11: Mealtime insulin stopped 12/25: metformin increased and glargine decreased; mealtime insulin stopped 02/22: ED for [place] Palsy HPI: Hasn't been using Trulicity for the past 1.5 months. Says she hasn't been getting it filled at pharmacy. Has therefore increased dose of Lantus. Energy level is lower. Peeing more often during the day. Waking up 2-3x/night sometimes. Has noticed some blurred vision. Started to get some tingling in feet. Taking increased metformin, tolerating fine. No GI issues. Current DM Medications: Metformin ER 500mg tabs - 1500mg daily Dulaglutide (Trulicity) 3mg weekly on Sundays (hasn't used in ~1.5 months) Insulin glargine (Lantus) 20 units QHS (taking 25 units) Past DM medications: Trulicity - headache Metformin 1000mg BID - diarrhea Admelog CGM Data Preventative Medications: On RADHA/ARB: Yes On Statin: Yes ROS: Patient denies CP, SOB, MARVIN, blurred vision, dizziness or lightheadedness Patient denies symptoms of hypoglycemia (sweating, anxiety, palpitations, hunger, and tremor) Patient denies symptoms of hyperglycemia (polyuria, polydipsia, polyphagia) Patient denies potential medication adverse effects DIET/EXERCISE/SOCIAL Hx: No changes MEDICATIONS: Pill bottles are not present. Adherence: reports missed doses of Trulicity. Pharmacy: [facility] [address] [place] [address] [address] [phone] Rx coverage: Payor: [employer] MEDICA[employer] / Plan: [facility] MEDICAID / Product Type: Medicaid / Medications affordable? 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 ALLERGIES Allergen Reactions Atorvastatin Myalgia Severe muscle cramps Penicillins Unknown Medication List Medication Directions Comments Action/Plan acyclovir (ZOVIRAX) 400 mg tablet take 1 tablet by mouth 5 (five) times daily apixaban (ELIQUIS) 5 mg tab(s) Take 1 tablet by mouth two times a day. Blood-Glucose Meter,Continuous (DEXCOM G7 ADJUNCT FACULTY) misc Use to check blood sugar at least four (4) times daily. Blood-Glucose Sensor (DEXCOM G7 SENSOR) kali Apply new sensor every ten (10) days. COMPOUNDED PRESCRIPTION Initiate CPAP @ 13 cm of water with humidification mask (per patient preference) optional chin strap (if indicated) and lifetime supplies DX: BE 327.23 estradiol (ESTRACE) 2 mg tablet Take 1 tablet by mouth once daily. insulin glargine (BASAGLAR KWIKPEN U-100 INSULIN) 100 unit/mL (3 mL) Inject 20 Units subcutaneously daily at bedtime. Insulin [place], Disposable, (PEN NEEDLE) 32 gauge x 5/32 Use to inject insulin up to 4 times per day as directed. Lancets Use with blood glucose test once daily. Insulin Dep? No lisinopril (ZESTRIL) 10 mg tablet Take 1 tablet by mouth once daily. metFORMIN ER (GLUCOPHAGE XR) 500 mg 24 hr tablet Take 3 tablets by mouth daily with breakfast. metoprolol tartrate, short acting, (LOPRESSOR) 25 mg tablet Take 1 tablet by mouth two times a day. fcivd-2t-lin-epa-fish oil (OMEGA-3 FISH OIL) 300-1,000 mg cap Take 1 capsule by mouth once daily. predniSONE (DELTASONE) 20 mg tablet Take 3 tablets by mouth every afternoon. propylene glycoL (SYSTANE BALANCE) 0.6 % drop Use 1 Drop in both eyes as needed. rosuvastatin (CRESTOR) 20 mg tablet Take 1 tablet by mouth once daily. Exam: There were no vitals taken for this visit. Last 3 Encounter BP Readings: Date: BP: 03/01/2024 118/70 03/22/2023 118/67 01/19/2023 120/81 Wt: 109.8 kg (242 lb) BMI: 38.19 kg/(m^2) LABS: Reviewed Lab Results Component Value Date HBA1C 6.1 12/06/2023 HBA1C 5.8 07/19/2023 HBA1C 12.5 03/22/2023 HBA1C 6.0 07/22/2022 CMP: Glucose 91 12/06/2023 BUN 10 12/06/2023 Creatinine 0.78 12/06/2023 Sodium 140 12/06/2023 Potassium 4.5 12/06/2023 Chloride 107 12/06/2023 CO2 22 12/06/2023 Protein, Total 6.9 12/06/2023 Albumin 4.1 12/06/2023 Calcium 9.2 12/06/2023 Alkaline Phosphatase 57 12/06/2023 Bilirubin, Total <0.2 12/06/2023 AST 25 12/06/2023 ALT 27 12/06/2023 eGFR 90 Estimated Creatinine Clearance (based on SCr of 0.78 mg/dL) Female: 102.3 mL/min Male: 124.4 mL/min Lab Results Component Value Date CHOL 129 12/06/2023 CHOL 216 11/10/2023 CHOL 194 04/14/2020 CHOL 227 12/29/2012 LDL 61 12/06/2023 LDL 120 04/14/2020 LDL 162 12/29/2012 HDL 47 12/06/2023 HDL 50 11/10/2023 HDL 51 04/14/2020 HDL 33 12/29/2012 TG 103 12/06/2023 TG 180 11/10/2023 TG 114 04/14/2020 TG 162 12/29/2012 The ASCVD Risk score (Rui HERBERT, et al., 2019) failed to calculate for the following reasons: The valid total cholesterol range is 130 to 320 mg/dL Albumin/Creat Ratio (mg/g) Date Value 11/24/2022 <17 PHARMACOTHERAPY ASSESSMENT/PLAN: 1. Type 2 diabetes mellitus with diabetic neuropathy, with long-term current use of insulin (HCC) - ICD9: 250.60, 357.2, V58.67, ICD10: E11.40, Z79.4 A1c goal < 7%; controlled (last A1c 6.7%); TIR not at goal, Bgs very elevated without Trulicity and with recent steroid use for [place] Palsy; (+) sx hyperglycemia; will restart Trulicity today at lowest dose and do a rapid titration to get back to 3mg weekly; close f/up in 4 weeks INITIATE Trulicity 0.75mg weekly. Advised to take 0.75mg weekly x 2 weeks. If tolerating well, advised to take 2 pens of 0.75mg on Week #3 for a total of 1.5mg. Take 1.5mg weekly for an additional 2 weeks, then INCREASE to 3mg weekly (using 2 shots of the 1.5mg pens) Continue other medications Advised to contact PharmD if any issues with Trulicity - DULAGLUTIDE 0.75 MG/0.5 ML SUBCUTANEOUS PEN INJECTOR - DULAGLUTIDE 1.5 MG/0.5 ML SUBCUTANEOUS PEN INJECTOR Health Maintenance - Diabetes Topic Date Due Diabetic Foot Exam 09/01/2022 Urine Albumin:Creatinine Ratio 11/25/2023 Follow-up Patient is scheduled to see PCP team on 04/11. Patient to have f/up with PharmD team on 04/23. Patient verbalized understanding of instructions. Torrie Howard PharmD, [facility] Primary Care Clinical Pharmacist Time spent: 26 mins documented in this encounter [facility] 03-26-2024 Note HNO ID: [id number] Author: TORRIE HOWARD RPh Service: ? Author Type: Pharmacist Type: Progress Notes Filed: 03/26/2024 15:33 Note Text: Primary Care Pharmacy Visit CC (Reason for Consult): Diabetes (E11.40, Z79.4) Type 2 diabetes mellitus with diabetic neuropathy, with long-term current use of insulin (HCC) (primary encounter diagnosis) Goal: A1c < 7% Last Collaborating Provider Visit: 03/23/23 Isai Graham is a 54 year old adult presenting for follow up visit virtually. Patient consents to pharmacy collaborative practice agreement. Interim Events: ED at [facility] in late February 2023 for high BG and feeling like passing out; not admitted 03/10/23: referred to PharmD to help with DM mngt 03/16: initial PharmD visit; insulin increased; advised to read nutrition labels and limit Total Carbs; encouraged lifestyle mods, CGM ordered; plan to discuss GLP1 at future visit 03/22: Endo switched metformin to ER and increased dose; Trulicity started; dietary mods encouraged 03/23: no med changes 04/04: no med changes since endo recently started Trulicity 05/23: Trulicity increased 07/12: Trulicity increased to 4.5mg weekly, but that wasn't in stock so 3mg resumed 07/19: rosuvastatin started 11/15: Dexcom CGM ordered 12/11: Mealtime insulin stopped 12/25: metformin increased and glargine decreased; mealtime insulin stopped 02/22: ED for [place] Palsy HPI: Hasn't been using Trulicity for the past 1.5 months. Says she hasn't been getting it filled at pharmacy. Has therefore increased dose of Lantus. Energy level is lower. Peeing more often during the day. Waking up 2-3x/night sometimes. Has noticed some blurred vision. Started to get some tingling in feet. Taking increased metformin, tolerating fine. No GI issues. Current DM Medications: Metformin ER 500mg tabs - 1500mg daily Dulaglutide (Trulicity) 3mg weekly on Sundays (hasn't used in ~1.5 months) Insulin glargine (Lantus) 20 units QHS (taking 25 units) Past DM medications: Trulicity - headache Metformin 1000mg BID - diarrhea Admelog CGM Data Preventative Medications: On RADHA/ARB: Yes On Statin: Yes ROS: Patient denies CP, SOB, MARVIN, blurred vision, dizziness or lightheadedness Patient denies symptoms of hypoglycemia (sweating, anxiety, palpitations, hunger, and tremor) Patient denies symptoms of hyperglycemia (polyuria, polydipsia, polyphagia) Patient denies potential medication adverse effects DIET/EXERCISE/SOCIAL Hx: No changes MEDICATIONS: Pill bottles are not present. Adherence: reports missed doses of Trulicity. Pharmacy: [facility] [address] [place] [id number] [address] - [phone] Rx coverage: Payor: [facility] MEDICAID / Plan: [facility] MEDICAID / Product Type: Medicaid / Medications affordable? 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 ALLERGIES Allergen Reactions Atorvastatin Myalgia Severe muscle cramps Penicillins Unknown Medication List Medication Directions Comments Action/Plan acyclovir (ZOVIRAX) 400 mg tablet take 1 tablet by mouth 5 (five) times daily apixaban (ELIQUIS) 5 mg tab(s) Take 1 tablet by mouth two times a day. Blood-Glucose Meter,Continuous (DEXCOM G7 ADJUNCT FACULTY) misc Use to check blood sugar at least four (4) times daily. Blood-Glucose Sensor (DEXCOM G7 SENSOR) kali Apply new sensor every ten (10) days. COMPOUNDED PRESCRIPTION Initiate CPAP @ 13 cm of water with humidification mask (per patient preference) optional chin strap (if indicated) and lifetime supplies DX: BE 327.23 estradiol (ESTRACE) 2 mg tablet Take 1 tablet by mouth once daily. insulin glargine (BASAGLAR KWIKPEN U-100 INSULIN) 100 unit/mL (3 mL) Inject 20 Units subcutaneously daily at bedtime. Insulin [place], Disposable, (PEN NEEDLE) 32 gauge x 5/32 Use to inject insulin up to 4 times per day as directed. Lancets Use with blood glucose test once daily. Insulin Dep? No lisinopril (ZESTRIL) 10 mg tablet Take 1 tablet by mouth once daily. metFORMIN ER (GLUCOPHAGE XR) 500 mg 24 hr tablet Take 3 tablets by mouth daily with breakfast. metoprolol tartrate, short acting, (LOPRESSOR) 25 mg tablet Take 1 tablet by mouth two times a day. fobex-8l-yuo-epa-fish oil (OMEGA-3 FISH OIL) 300-1,000 mg cap Take 1 capsule by mouth once daily. predniSONE (DELTASONE) 20 mg tablet Take 3 tablets by mouth every afternoon. propylene glycoL (SYSTANE BALANCE) 0.6 % drop Use 1 Drop i (more content not included)... [facility] 03-01-2024 Note HNO ID: [id number] Author: PAZ LUGO, DO Service: ? 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 She sees an paleobotanist for diabetes and hormone treatment She wears a CGM She runs her dog for exercise on a regular basis She does not use tobacco or nicotine products She does not eat a healthy diet ALLERGIES Allergen Reactions Atorvastatin Myalgia Severe muscle cramps Penicillins Unknown Current Outpatient Medications Medication Sig Dispense Refill predniSONE (DELTASONE) 20 mg tablet Take 3 tablets by mouth every afternoon. acyclovir (ZOVIRAX) 400 mg tablet take 1 tablet by mouth 5 (five) times daily propylene glycoL (SYSTANE BALANCE) 0.6 % drop Use 1 Drop in both eyes as needed. Lancets Use with blood glucose test once daily. Insulin Dep? No 100 Each 5 blood sugar diagnostic test strip Use with blood glucose test once daily, Insulin Dep? No (Patient taking differently: Use with blood glucose test 3-4 times daily, Insulin Dep? No) 100 Strip 5 lisinopril (ZESTRIL) 10 mg tablet Take 1 tablet by mouth once daily. 90 tablet 3 apixaban (ELIQUIS) 5 mg tab(s) Take 1 tablet by mouth two times a day. 180 tablet 1 metoprolol tartrate, short acting, (LOPRESSOR) 25 mg tablet Take 1 tablet by mouth two times a day. 180 tablet 3 estradiol (ESTRACE) 2 mg tablet Take 1 tablet by mouth once daily. 90 tablet 3 Blood-Glucose Sensor (Embedded Chat G7 SENSOR) kali Apply new sensor every ten (10) days. 9 Each 3 insulin glargine (BASAGLAR KWIKPEN U-100 INSULIN) 100 unit/mL (3 mL) Inject 20 Units subcutaneously daily at bedtime. 30 mL 3 metFORMIN ER (GLUCOPHAGE XR) 500 mg 24 hr tablet Take 3 tablets by mouth daily with breakfast. 270 tablet 3 rosuvastatin (CRESTOR) 20 mg tablet Take 1 tablet by mouth once daily. 90 tablet 0 Insulin [place], Disposable, (PEN NEEDLE) 32 gauge x 5/32 Use to inject insulin up to 4 times per day as directed. 400 Each 3 Blood-Glucose Meter,Continuous (DEXCOM G7 ADJUNCT FACULTY) misc Use to check blood sugar at least four (4) times daily. 1 Each 0 alcohol swabs Use with blood glucose test once daily. Insulin Dep? No (Patient taking differently: Use with blood glucose test 3-4 times daily. Insulin Dep? No) 200 Each 5 tdrko-2l-mxv-epa-fish oil (OMEGA-3 FISH OIL) 300-1,000 mg cap Take 1 capsule by mouth once daily. COMPOUNDED PRESCRIPTION Initiate CPAP @ 13 cm of water with humidification mask (per patient preference) optional chin strap (if indicated) and lifetime supplies DX: BE 327.23 1 Device 0 finasteride (PROSCAR) 5 mg tablet Take 1 tablet by mouth once daily. (Patient not taking: Reported on 03/01/2024) 90 tablet 3 TRULICITY 3 mg/0.5 mL pen injector Inject 3 mg subcutaneously one time a week. (Patient not taking: Reported on 03/01/2024) 2 mL 2 No current facility-administered medications for this visit. ACTIVE PROBLEM LIST Sleep Apnea Encounter for Screening Mammogram for Malignant Neoplasm of Breast Hepatic Steatosis Mixed Hyperlipidemia Gonadal Dysgenesis, 46, Xy Htn (Hypertension) Type 2 Diabetes Mellitus (Hcc) Obesity, Class II, Bmi 35-39.9 Atrial Flutter (Hcc) Social History Tobacco Use Smoking status: Former Current packs/day: 0.50 Types: Cigarettes Smokeless tobacco: Never Tobacco comments: quit 2011 Vaping Use Vaping status: Former Substance Use Topics Alcohol use: No Drug use: No Family History Problem Relation Age of Onset Obstructive Sleep Apnea Mother Diabetes Father other (fungal infection in the blood) Father Stroke Father COPD Maternal Grandmother No Ocular Disease No Family History Reviewed past medical history, family history and surgeries. All medications and supplements were reviewed with the patient. Review of Systems Constitutional: Negative for chills, diaphoresis, fever, malaise/fatigue and weight loss. HENT: Negative for ear pain and hearing loss. Eyes: Negative for blurred vision and double vision. Respiratory: Negative for cough and shortness of breath. Cardiovascular: Negative for chest pain, palpitations and leg swelling. Gastrointestinal: Negative for constipation, diarrhea and heartburn. Genitourinary: Negative for dysuria and frequency. Musculoskeletal: Negative for back pain, falls, joint pain and myalgias. Skin: Negative for itching and rash. Neurological: Positive for tingling and sensory change. Negative for dizziness, weakness and headaches. Endo/Heme/All (more content not included)... 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 She sees an paleobotanist for diabetes and hormone treatment She wears a CGM She runs her dog for exercise on a regular basis She does not use tobacco or nicotine products She does not eat a healthy diet ALLERGIES Allergen Reactions Atorvastatin Myalgia Severe muscle cramps Penicillins Unknown Current Outpatient Medications Medication Sig Dispense Refill predniSONE (DELTASONE) 20 mg tablet Take 3 tablets by mouth every afternoon. acyclovir (ZOVIRAX) 400 mg tablet take 1 tablet by mouth 5 (five) times daily propylene glycoL (SYSTANE BALANCE) 0.6 % drop Use 1 Drop in both eyes as needed. Lancets Use with blood glucose test once daily. Insulin Dep? No 100 Each 5 blood sugar diagnostic test strip Use with blood glucose test once daily, Insulin Dep? No (Patient taking differently: Use with blood glucose test 3-4 times daily, Insulin Dep? No) 100 Strip 5 lisinopril (ZESTRIL) 10 mg tablet Take 1 tablet by mouth once daily. 90 tablet 3 apixaban (ELIQUIS) 5 mg tab(s) Take 1 tablet by mouth two times a day. 180 tablet 1 metoprolol tartrate, short acting, (LOPRESSOR) 25 mg tablet Take 1 tablet by mouth two times a day. 180 tablet 3 estradiol (ESTRACE) 2 mg tablet Take 1 tablet by mouth once daily. 90 tablet 3 Blood-Glucose Sensor (DEXCOM G7 SENSOR) kali Apply new sensor every ten (10) days. 9 Each 3 insulin glargine (BASAGLAR KWIKPEN U-100 INSULIN) 100 unit/mL (3 mL) Inject 20 Units subcutaneously daily at bedtime. 30 mL 3 metFORMIN ER (GLUCOPHAGE XR) 500 mg 24 hr tablet Take 3 tablets by mouth daily with breakfast. 270 tablet 3 rosuvastatin (CRESTOR) 20 mg tablet Take 1 tablet by mouth once daily. 90 tablet 0 Insulin [place], Disposable, (PEN NEEDLE) 32 gauge x 5/32 Use to inject insulin up to 4 times per day as directed. 400 Each 3 Blood-Glucose Meter,Continuous (DEXCOM G7 ADJUNCT FACULTY) [facility] [place] Use to check blood sugar at least four (4) times daily. 1 Each 0 alcohol swabs Use with blood glucose test once daily. Insulin Dep? No (Patient taking differently: Use with blood glucose test 3-4 times daily. Insulin Dep? No) 200 Each 5 bpmbh-9x-itw-epa-fish oil (OMEGA-3 FISH OIL) 300-1,000 mg cap Take 1 capsule by mouth once daily. COMPOUNDED PRESCRIPTION Initiate CPAP @ 13 cm of water with humidification mask (per patient preference) optional chin strap (if indicated) and lifetime supplies DX: BE 327.23 1 Device 0 finasteride (PROSCAR) 5 mg tablet Take 1 tablet by mouth once daily. (Patient not taking: Reported on 03/01/2024) 90 tablet 3 TRULICITY 3 mg/0.5 mL pen injector Inject 3 mg subcutaneously one time a week. (Patient not taking: Reported on 03/01/2024) 2 mL 2 No current facility-administered medications for this visit. ACTIVE PROBLEM LIST Sleep Apnea Encounter for Screening Mammogram for Malignant Neoplasm of Breast Hepatic Steatosis Mixed Hyperlipidemia Gonadal Dysgenesis, 46, Xy Htn (Hypertension) Type 2 Diabetes Mellitus (Hcc) Obesity, Class II, Bmi 35-39.9 Atrial Flutter (Hcc) Social History Tobacco Use Smoking status: Former Current packs/day: 0.50 Types: Cigarettes Smokeless tobacco: Never Tobacco comments: quit 2011 Vaping Use Vaping status: Former Substance Use Topics Alcohol use: No Drug use: No Family History Problem Relation Age of Onset Obstructive Sleep Apnea Mother Diabetes Father other (fungal infection in the blood) Father Stroke Father COPD Maternal Grandmother No Ocular Disease No Family History Reviewed past medical history, family history and surgeries. All medications and supplements were reviewed with the patient. Review of Systems Constitutional: Negative for chills, diaphoresis, fever, malaise/fatigue and weight loss. HENT: Negative for ear pain and hearing loss. Eyes: Negative for blurred vision and double vision. Respiratory: Negative for cough and shortness of breath. Cardiovascular: Negative for chest pain, palpitations and leg swelling. Gastrointestinal: Negative for constipation, diarrhea and heartburn. Genitourinary: Negative for dysuria and frequency. Musculoskeletal: Negative for back pain, falls, joint pain and myalgias. Skin: Negative for itching and rash. Neurological: Positive for tingling and sensory change. Negative for dizziness, weakness and headaches. Endo/Heme/Allergies: Does not bruise/bleed easily. Psychiatric/Behavioral: Negative for depression and substance abuse. The patient does not have insomnia. Objective BP 118/70 Pulse (!) 59 Temp 36.4 C (97.6 F) Resp 18 Ht 169.5 cm (5' 6.75) Wt 109.8 kg (242 lb) SpO2 94% BMI 38.19 kg/m Physical Exam Constitutional: Appearance: Normal appearance. She is obese. HENT: Head: Normocephalic and atraumatic. Nose: Nose normal. Mouth/Throat: Mouth: Mucous membranes are moist. Dentition: Normal dentition. Eyes: General: Lids are normal. Extraocular Movements: Extraocular movements intact. Conjunctiva/sclera: Conjunctivae normal. Pupils: Pupils are equal, round, and reactive to light. Neck: Thyroid: No thyroid mass or thyromegaly. Vascular: No carotid bruit. Trachea: Phonation normal. Cardiovascular: Rate and Rhythm: Normal rate and regular rhythm. Heart sounds: Normal heart sounds. No murmur heard. No friction rub. No gallop. Pulmonary: Effort: Pulmonary effort is normal. Breath sounds: Normal breath sounds. No wheezing or rales. Abdominal: General: Bowel sounds are normal. There is no distension. Palpations: Abdomen is soft. There is no mass. Tenderness: There is no abdominal tenderness. Musculoskeletal: General: No swelling or tenderness. Normal range of motion. Cervical back: Normal range of motion and neck supple. No edema. Lymphadenopathy: Cervical: No cervical adenopathy. Skin: General: Skin is warm and dry. Findings: No erythema or rash. Nails: There is no clubbing. Neurological: General: No focal deficit present. Mental Status: She is alert and oriented to person, place, and time. Mental status is at baseline. Cranial Nerves: No cranial nerve deficit. Sensory: No sensory deficit. Motor: Motor function is intact. No weakness. Coordination: Coordination normal. Gait: Gait is intact. Gait normal. Deep Tendon Reflexes: Reflexes normal. Psychiatric: Attention and Perception: Attention normal. Mood and Affect: Mood and affect normal. Speech: Speech normal. Behavior: Behavior normal. Behavior is cooperative. Thought Content: Thought content normal. Cognition and Memory: Cognition and memory normal. Judgment: Judgment normal. ASSESSMENT/PLAN: 1. 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 Primary hypertension - ICD9: 401.9, ICD10: I10 - Controlled - Continue current medications - Recommend home blood pressure monitoring, to bring results to next visit - Encouraged sodium restriction, DASH or Mediterranean diet - Recommend regular aerobic exercise 3. Mixed hyperlipidemia - ICD9: 272.2, ICD10: E78.2 - Controlled - Continue current medications - Counseled on healthy diet and regular exercise 4. 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 Obesity, Class II, BMI 35-39.9 - ICD9: 278.00, ICD10: E66.812 Lifestyle modification recommended Paz Lugo DO documented in this encounter [facility] 02-06-2024 Telephone encounter Note Last office visit: 11/24/22 Last virtual visit: 03/23/23 Next office visit: 04/11/24 Jessica Mary LPN February 06, 2024 1:28 PM [facility] 02-06-2024 Miscellaneous Notes Last office visit: 11/24/22 Last virtual visit: 03/23/23 Next office visit: 04/11/24 Jessica Mary LPN February 06, 2024 1:28 PM documented in this encounter [facility] 02-06-2024 Telephone encounter Note Last office visit: 11/24/22 Last virtual visit: 03/23/23 Next office visit: 04/11/24 Jessica Mary LPN February 06, 2024 1:28 PM [facility] 02-06-2024 Miscellaneous Notes Last office visit: 11/24/22 Last virtual visit: 03/23/23 Next office visit: 04/11/24 Jessica Mary LPN February 06, 2024 1:28 PM documented in this encounter [facility] 01-30-2024 Telephone encounter Note Requester: Pharmacy Patients last Endocrinology visit occurred 05/24/23 with Umm Hairston CNP. Follow-up evaluation has been established with on 05/18/24 Upcoming Endocrinology Appointments - Next 365 Days Visit Type Date Time Department VIDEO SPEC EST 05/18/2024 3:20 PM ENDO [facility] . Requested Prescriptions Pending Prescriptions Disp Refills TRULICITY 3 mg/0.5 mL pen injector [Pharmacy Med Name: Trulicity 3 mg/0.5 mL subcutaneous pen injector] 2 mL 2 Sig: Inject 3 mg subcutaneously one time a week. If patient is due for an appointment please route to provider for refill consideration and also to the endo scheduling pool. PSS NOTE: Patient needs scheduled appointment No [facility] 01-30-2024 Miscellaneous Notes Requester: Pharmacy Patients last Endocrinology visit occurred 05/24/23 with Umm Hairston CNP. Follow-up evaluation has been established with on 05/18/24 Upcoming Endocrinology Appointments - Next 365 Days Visit Type Date Time Department VIDEO SPEC EST 05/18/2024 3:20 PM ENDO [facility] . Requested Prescriptions Pending Prescriptions Disp Refills TRULICITY 3 mg/0.5 mL pen injector [Pharmacy Med Name: Trulicity 3 mg/0.5 mL subcutaneous pen injector] 2 mL 2 Sig: Inject 3 mg subcutaneously one time a week. If patient is due for an appointment please route to provider for refill consideration and also to the endo scheduling pool. PSS NOTE: Patient needs scheduled appointment No documented in this encounter [facility] 01-09-2024 Telephone encounter Note 03/23/23 Next appt 04/11/24 Requested Prescriptions Pending Prescriptions Disp Refills Blood-Glucose Sensor (DEXCOM G7 SENSOR) kali 9 Each 3 Sig: Apply new sensor every ten (10) days. [facility] 01-09-2024 Miscellaneous Notes LV 03/23/23 Next appt 04/11/24 Requested Prescriptions Pending Prescriptions Disp Refills Blood-Glucose Sensor (DEXCOM G7 SENSOR) kali 9 Each 3 Sig: Apply new sensor every ten (10) days. documented in this encounter [facility] 12-26-2023 History of Presen t illness Narrative Images from the original note were not included. Primary Care Pharmacy Visit CC (Reason for Consult): Diabetes (E11.40, Z79.4) Type 2 diabetes mellitus with diabetic neuropathy, with long-term current use of insulin ([facility]) (primary encounter diagnosis) Goal: A1c < 7% Last Collaborating Provider Visit: 03/23/23 Isai Graham is a 53 year old adult presenting for follow up visit virtually. Patient consents to pharmacy collaborative practice agreement. Interim Events: ED at [facility] in late February for high BG and feeling like passing out; not admitted 03/10/23: referred to PharmD to help with DM mngt 03/16: initial PharmD visit; insulin increased; advised to read nutrition labels and limit Total Carbs; encouraged lifestyle mods, CGM ordered; plan to discuss GLP1 at future visit 03/22: Endo switched metformin to ER and increased dose; Trulicity started; dietary mods encouraged 03/23: no med changes 04/04: no med changes since endo recently started Trulicity 05/23: Trulicity increased 07/12: Trulicity increased to 4.5mg weekly, but that wasn't in stock so 3mg resumed 07/19: rosuvastatin started 11/15: Dexcom CGM ordered 12/11: Mealtime insulin stopped HPI: Patient forgot about appt, visit completed via phone x 15 mins. Feels things are going well. Sugars are a little higher since stopping mealtime insulin. Denies any change in energy level, thirst, dry mouth, or frequency of urination. Current DM Medications: Metformin ER 500mg tabs - 1000mg BID (self-decreased to 500mg BID about 1 mo ago; used to take 3 tabs/day due to diarrhea with 4 tabs) Dulaglutide (Trulicity) 3mg weekly on Sundays Insulin glargine (Lantus) 22 units QHS Insulin lispro (Admelog) 5 units + SSI TIDAC (ON HOLD) Past DM medications: Trulicity - headache Metformin 1000mg BID - diarrhea CGM Data Preventative Medications: On RADHA/ARB: Yes On Statin: Yes ROS: Patient denies CP, SOB, MARVIN, blurred vision, dizziness or lightheadedness Patient denies symptoms of hypoglycemia (sweating, anxiety, palpitations, hunger, and tremor) Patient denies symptoms of hyperglycemia (polyuria, polydipsia, polyphagia) Patient denies potential medication adverse effects DIET/EXERCISE/SOCIAL Hx: Admits diet could be better MEDICATIONS: Pill bottles are not present. Adherence: denies missed doses. Pharmacy: [facility] [address] [place] [address] [address] - [phone] Rx coverage: Payor: [facility] MEDICAID / [facility] / Product Type: Medicaid / Medications affordable? 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 ALLERGIES Allergen Reactions Atorvastatin Myalgia Severe muscle cramps Penicillins Unknown Medication List Medication Directions Comments Action/Plan alcohol swabs Use with blood glucose test once daily. Insulin Dep? No apixaban (ELIQUIS) 5 mg tab(s) Take 1 tablet by mouth two times a day. blood sugar diagnostic test strip Use with blood glucose test once daily, Insulin Dep? No Blood-Glucose Meter,Continuous (DEXCOM G7 ADJUNCT FACULTY) misc Use to check blood sugar at least four (4) times daily. Blood-Glucose Sensor (DEXCOM G7 SENSOR) kali Apply new sensor every ten (10) days. COMPOUNDED PRESCRIPTION Initiate CPAP @ 13 cm of water with humidification mask (per patient preference) optional chin strap (if indicated) and lifetime supplies DX: BE 327.23 dulaglutide (TRULICITY) 3 mg/0.5 mL pen injector Inject 3 mg subcutaneously one time a week. estradiol (ESTRACE) 2 mg tablet Take 1 tablet by mouth once daily. finasteride (PROSCAR) 5 mg tablet Take 1 tablet by mouth once daily. INSULIN ASPART U-100 SUBCUTANEOUS Insulin Aspart U-100 Active 5 UNIT SC THREE TIMES A DAY March 05, 2023 12:00am insulin glargine (BASAGLAR KWIKPEN U-100 INSULIN) 100 unit/mL (3 mL) Inject 22 Units subcutaneously daily at bedtime. This REPLACES Levemir. insulin lispro (ADMELOG SOLOSTAR U-100 INSULIN) 100 unit/mL Inject 5 units plus sliding scale up to 3 times daily before meals. If pre-meal BG 150-199, take extra 1 unit; BG 200-249 = 2 units; BG 250-299 = 3 units; BG 300-349 = 4 units; BG 350-399 = 5 units, BG 400-449 = 6 units, BG 450 and greater = extra 7 units. Max dose 36 units/day. ON HOLD as of 12.12.23. Insulin [place], Disposable, (PEN NEEDLE) 32 gauge x 32 Use to inject insulin up to 4 times per day as directed. Lancets lancets Use with blood glucose test once daily. Insulin Dep? No lisinopril (ZESTRIL) 10 mg tablet Take 1 tablet by mouth once daily. metFORMIN ER (GLUCOPHAGE XR) 500 mg 24 hr tablet Take 2 tablets by mouth two times a day with meals. metoprolol tartrate, short acting, (LOPRESSOR) 25 mg tablet Take 1 tablet by mouth two times a day. phkga-1n-cjx-epa-fish oil (OMEGA-3 FISH OIL) 300-1,000 mg cap Take 1 capsule by mouth once daily. rosuvastatin (CRESTOR) 20 mg tablet Take 1 tablet by mouth once daily. Exam: There were no vitals taken for this visit. Last 3 Encounter BP Readings: Date: BP: 03/22/2023 118/67 01/19/2023 120/81 11/24/2022 117/78 Wt: 0 kg () BMI: 0.00 kg/(m^2) LABS: Reviewed Lab Results Component Value Date HBA1C 6.1 12/06/2023 HBA1C 5.8 07/19/2023 HBA1C 12.5 03/22/2023 HBA1C 6.0 07/22/2022 CMP: Glucose 91 12/06/2023 BUN 10 12/06/2023 Creatinine 0.78 12/06/2023 Sodium 140 12/06/2023 Potassium 4.5 12/06/2023 Chloride 107 12/06/2023 CO2 22 12/06/2023 Protein, Total 6.9 12/06/2023 Albumin 4.1 12/06/2023 Calcium 9.2 12/06/2023 Alkaline Phosphatase 57 12/06/2023 Bilirubin, Total <0.2 12/06/2023 AST 25 12/06/2023 ALT 27 12/06/2023 eGFR 90 Lab Results Component Value Date CHOL 129 12/06/2023 CHOL 216 11/10/2023 CHOL 194 04/14/2020 CHOL 227 12/29/2012 LDL 61 12/06/2023 LDL 120 04/14/2020 LDL 162 12/29/2012 HDL 47 12/06/2023 HDL 50 11/10/2023 HDL 51 04/14/2020 HDL 33 12/29/2012 TG 103 12/06/2023 TG 180 11/10/2023 TG 114 04/14/2020 TG 162 12/29/2012 The ASCVD Risk score (Rui DK, et al., 2019) failed to calculate for the following reasons: The valid total cholesterol range is 130 to 320 mg/dL Albumin/Creat Ratio (mg/g) Date Value 11/24/2022 <17 PHARMACOTHERAPY ASSESSMENT/PLAN: 1. Type 2 diabetes mellitus with diabetic neuropathy, with long-term current use of insulin ([facility]) - ICD9: 250.60, 357.2, V58.67, ICD10: E11.40, Z79.4 A1c goal < 7%; controlled (last A1c 6.1%); TIR at goal; will continue withOUT mealtime insulin since Bgs still mostly at target range; does have some PPG spikes which pt admits are due to dietary choices; pt agreeable to focusing on better diet; patient self-decreased metformin last month but preference is to lose weight, so will resume previous metformin dosing and decrease basal insulin; f/up in 3 mo Mealtime insulin discontinued and removed from med list INCREASE metformin ER to 1500mg daily DECREASE insulin glargine to 20 units daily Continue other medications Encouraged being more mindful of diet - eating more veggies, whole grains, fruit, water, etc Follow-up Patient is scheduled to see PCP team on 04/11. Patient to have f/up with PharmD team on 03/26. Patient verbalized understanding of instructions. Torrie Howard PharmD, BCPS Primary Care Clinical Pharmacist Time spent: 15 mins documented in this encounter [facility] 12-26-2023 Note HNO ID: [id number] Author: TORRIE HOWARD [facility]ly [facility] Service: ? Author Type: Pharmacist Type: Progress Notes Filed: 12/26/2023 15:35 Note Text: Primary Care Pharmacy Visit CC (Reason for Consult): Diabetes (E11.40, Z79.4) Type 2 diabetes mellitus with diabetic neuropathy, with long-term current use of insulin (HCC) (primary encounter diagnosis) Goal: A1c < 7% Last Collaborating Provider Visit: 03/23/23 Isai Graham is a 53 year old adult presenting for follow up visit virtually. Patient consents to pharmacy collaborative practice agreement. Interim Events: ED at [facility] in late February for high BG and feeling like passing out; not admitted 03/10/23: referred to PharmD to help with DM mngt 03/16: initial PharmD visit; insulin increased; advised to read nutrition labels and limit Total Carbs; encouraged lifestyle mods, CGM ordered; plan to discuss GLP1 at future visit 03/22: Endo switched metformin to ER and increased dose; Trulicity started; dietary mods encouraged 03/23: no med changes 04/04: no med changes since endo recently started Trulicity 05/23: Trulicity increased 07/12: Trulicity increased to 4.5mg weekly, but that wasn't in stock so 3mg resumed 07/19: rosuvastatin started 11/15: Dexcom CGM ordered 12/11: Mealtime insulin stopped HPI: Patient forgot about appt, visit completed via phone x 15 mins. Feels things are going well. Sugars are a little higher since stopping mealtime insulin. Denies any change in energy level, thirst, dry mouth, or frequency of urination. Current DM Medications: Metformin ER 500mg tabs - 1000mg BID (self-decreased to 500mg BID about 1 mo ago; used to take 3 tabs/day due to diarrhea with 4 tabs) Dulaglutide (Trulicity) 3mg weekly on Sundays Insulin glargine (Lantus) 22 units QHS Insulin lispro (Admelog) 5 units + SSI TIDAC (ON HOLD) Past DM medications: Trulicity - headache Metformin 1000mg BID - diarrhea CGM Data Preventative Medications: On RADHA/ARB: Yes On Statin: Yes ROS: Patient denies CP, SOB, MARVIN, blurred vision, dizziness or lightheadedness Patient denies symptoms of hypoglycemia (sweating, anxiety, palpitations, hunger, and tremor) Patient denies symptoms of hyperglycemia (polyuria, polydipsia, polyphagia) Patient denies potential medication adverse effects DIET/EXERCISE/SOCIAL Hx: Admits diet could be better MEDICATIONS: Pill bottles are not present. Adherence: denies missed doses. Pharmacy: [facility] [address] [place] [id number] - [address] [phone] Rx coverage: Payor: [employer] MEDICAID / Plan: [email or web address] MEDICAID / Product Type: Medicaid / Medications affordable? 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 ALLERGIES Allergen Reactions Atorvastatin Myalgia Severe muscle cramps Penicillins Unknown Medication List Medication Directions Comments Action/Plan alcohol swabs Use with blood glucose test once daily. Insulin Dep? No apixaban (ELIQUIS) 5 mg tab(s) Take 1 tablet by mouth two times a day. blood sugar diagnostic test strip Use with blood glucose test once daily, Insulin Dep? No Blood-Glucose Meter,Continuous (DEXCOM G7 ADJUNCT FACULTY) misc Use to check blood sugar at least four (4) times daily. Blood-Glucose Sensor (DEXCOM G7 SENSOR) kali Apply new sensor every ten (10) days. COMPOUNDED PRESCRIPTION Initiate CPAP @ 13 cm of water with humidification mask (per patient preference) optional chin strap (if indicated) and lifetime supplies DX: BE 327.23 dulaglutide (TRULICITY) 3 mg/0.5 mL pen injector Inject 3 mg subcutaneously one time a week. estradiol (ESTRACE) 2 mg tablet Take 1 tablet by mouth once daily. finasteride (PROSCAR) 5 mg tablet Take 1 tablet by mouth once daily. INSULIN ASPART U-100 SUBCUTANEOUS Insulin Aspart U-100 Active 5 UNIT SC THREE TIMES A DAY March 05, 2023 12:00am insulin glargine (BASAGLAR KWIKPEN U-100 INSULIN) 100 unit/mL (3 mL) Inject 22 Units subcutaneously daily at bedtime. This REPLACES Levemir. insulin lispro (ADMELOG SOLOSTAR U-100 INSULIN) 100 unit/mL Inject 5 units plus sliding scale up to 3 times daily before meals. If pre-meal BG 150-199, take extra 1 unit; BG 200-249 = 2 units; BG 250-299 = 3 units; BG 300-349 = 4 units; BG 350-399 = 5 units, BG 400-449 = 6 units, BG 450 and greater = extra 7 units. Max dose 36 units/day. ON HOLD as of 24. Insulin [place], Disposable, (PEN NEEDLE) 32 gauge x 5/32 Use to inject insulin up to 4 times per day as directed. Lancets dinah (more content not included)... [facility] 12-19-2023 Note HNO ID: [id number] Author: ABIGAIL CERVANTES OD Service: ? Author Type: WIND ENERGY ENGINEER Type: Progress Notes Filed: 12/19/2023 10:17 Note Text: 1. Type 2 diabetes mellitus without retinopathy (HCC) Risk of diabetic changes and vision loss can be minimized by tight control of blood sugar, blood pressure, and cholesterol levels. Educated patient to continue care with primary care doctor and/or paleobotanist to maintain optimum levels as they are important to avoid ocular complications. Encouraged patient to call the office immediately with any changes to vision or visual concerns. Advised to not wait until the next scheduled exam. 2. Hypermetropia, bilateral 3. Regular astigmatism of both eyes 4. Presbyopia Continue with current glasses Follow-up in 1 year for diabetic eye exam or sooner as needed Abigail Cervantes, VIELKA December 19, 2023 10:16 AM [facility] 12-19-2023 History of Presen t illness Narrative 1. Type 2 diabetes mellitus without retinopathy (HCC) Risk of diabetic changes and vision loss can be minimized by tight control of blood sugar, blood pressure, and cholesterol levels. Educated patient to continue care with primary care doctor and/or paleobotanist to maintain optimum levels as they are important to avoid ocular complications. Encouraged patient to call the office immediately with any changes to vision or visual concerns. Advised to not wait until the next scheduled exam. 2. Hypermetropia, bilateral 3. Regular astigmatism of both eyes 4. Presbyopia Continue with current glasses Follow-up in 1 year for diabetic eye exam or sooner as needed Abigail Cervantes, OD December 19, 2023 10:16 AM documented in this encounter [facility] 12-12-2023 History of Presen t illness Narrative Images from the original note were not included. Primary Care Pharmacy Visit CC (Reason for Consult): Diabetes (E11.40, Z79.4) Type 2 diabetes mellitus with diabetic neuropathy, with long-term current use of insulin ([facility]) (primary encounter diagnosis) Goal: A1c < 7% Last Collaborating Provider Visit: 03/23/23 Isai Graham is a 53 year old adult presenting for follow up visit virtually. Patient consents to pharmacy collaborative practice agreement. Interim Events: ED at [facility] in late February for high BG and feeling like passing out; not admitted 03/10: referred to PharmD to help with DM mngt 03/16: initial PharmD visit; insulin increased; advised to read nutrition labels and limit Total Carbs; encouraged lifestyle mods, CGM ordered; plan to discuss GLP1 at future visit 03/22: Endo switched metformin to ER and increased dose; Trulicity started; dietary mods encouraged 03/23: no med changes 04/04: no med changes since endo recently started Trulicity 05/23: Trulicity increased 07/12: Trulicity increased to 4.5mg weekly, but that wasn't in stock so 3mg resumed 07/19: rosuvastatin started 11/15: Dexcom CGM ordered HPI: Doing well. Feels good. Losing weight. Eating better. Current DM Medications: Metformin ER 500mg tabs - 1000mg BID Dulaglutide (Trulicity) 3mg weekly on Sundays Insulin glargine (Lantus) 28 units QHS (taking 22 units) Insulin lispro (Admelog) 5 units + SSI TIDAC (taking 5 units before meals, usually eats 1 meal/day) Past DM medications: Trulicity - headache Metformin 1000mg BID - diarrhea CGM Data Hypoglycemia: several nights ago had a low alert around 3 AM, no sx. Ate a [place] [employer]. Preventative Medications: On RADHA/ARB: Yes On Statin: Yes ROS: Patient denies CP, SOB, MARVIN, blurred vision, dizziness or lightheadedness Patient denies symptoms of hypoglycemia (sweating, anxiety, palpitations, hunger, and tremor) Patient denies symptoms of hyperglycemia (polyuria, polydipsia, polyphagia) Patient denies potential medication adverse effects DIET/EXERCISE/SOCIAL Hx: Only eats about 1 meal per day Chicken and salads Stopped eating fried food Has cut back on sugar, cut back on night time snacking MEDICATIONS: Pill bottles are not present. Adherence: denies missed doses. Pharmacy: [facility] [address] [place] [id number] [address] [facility] [phone] Rx coverage: Payor: [employer] MEDICAID / Plan: #[employer] MEDICAID / Product Type: Medicaid / Medications affordable? 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 ALLERGIES Allergen Reactions Atorvastatin Myalgia Severe muscle cramps Penicillins Unknown Medication List Medication Directions Comments Action/Plan alcohol swabs Use with blood glucose test once daily. Insulin Dep? No apixaban (ELIQUIS) 5 mg tab(s) Take 1 tablet by mouth two times a day. blood sugar diagnostic test strip Use with blood glucose test once daily, Insulin Dep? No Blood-Glucose Meter,Continuous (DEXCOM G7 ADJUNCT FACULTY) misc Use to check blood sugar at least four (4) times daily. Blood-Glucose Sensor (DEXCOM G7 SENSOR) kali Apply new sensor every ten (10) days. COMPOUNDED PRESCRIPTION Initiate CPAP @ 13 cm of water with humidification mask (per patient preference) optional chin strap (if indicated) and lifetime supplies DX: BE 327.23 dulaglutide (TRULICITY) 3 mg/0.5 mL pen injector Inject 3 mg subcutaneously one time a week. estradiol (ESTRACE) 2 mg tablet Take 1 tablet by mouth once daily. finasteride (PROSCAR) 5 mg tablet Take 1 tablet by mouth once daily. insulin glargine (BASAGLAR KWIKPEN U-100 INSULIN) 100 unit/mL (3 mL) Inject 28 Units subcutaneously daily at bedtime. This REPLACES Levemir. insulin lispro (ADMELOG SOLOSTAR U-100 INSULIN) 100 unit/mL Inject 5 units plus sliding scale up to 3 times daily before meals. If pre-meal BG 150-199, take extra 1 unit; BG 200-249 = 2 units; BG 250-299 = 3 units; BG 300-349 = 4 units; BG 350-399 = 5 units, BG 400-449 = 6 units, BG 450 and greater = extra 7 units. Max dose 36 units/day. Insulin [place], Disposable, (PEN NEEDLE) 32 gauge x 5/32 Use to inject insulin up to 4 times per day as directed. Lancets lancets Use with blood glucose test once daily. Insulin Dep? No lisinopril (ZESTRIL) 10 mg tablet Take 1 tablet by mouth once daily. metFORMIN ER (GLUCOPHAGE XR) 500 mg 24 hr tablet Take 2 tablets by mouth two times a day with meals. metoprolol tartrate, short acting, (LOPRESSOR) 25 mg tablet Take 1 tablet by mouth two times a day. bnzui-0p-ksl-epa-fish oil (OMEGA-3 FISH OIL) 300-1,000 mg cap Take 1 capsule by mouth once daily. rosuvastatin (CRESTOR) 20 mg tablet Take 1 tablet by mouth once daily. Exam: There were no vitals taken for this visit. Last 3 Encounter BP Readings: Date: BP: 03/22/2023 118/67 01/19/2023 120/81 11/24/2022 117/78 Wt: 0 kg () BMI: 0.00 kg/(m^2) LABS: Reviewed Lab Results Component Value Date HBA1C 6.1 12/06/2023 HBA1C 5.8 07/19/2023 HBA1C 12.5 03/22/2023 HBA1C 6.0 07/22/2022 CMP: Glucose 91 12/06/2023 BUN 10 12/06/2023 Creatinine 0.78 12/06/2023 Sodium 140 12/06/2023 Potassium 4.5 12/06/2023 Chloride 107 12/06/2023 CO2 22 12/06/2023 Protein, Total 6.9 12/06/2023 Albumin 4.1 12/06/2023 Calcium 9.2 12/06/2023 Alkaline Phosphatase 57 12/06/2023 Bilirubin, Total <0.2 12/06/2023 AST 25 12/06/2023 ALT 27 12/06/2023 eGFR 90 Lab Results Component Value Date CHOL 129 12/06/2023 CHOL 216 11/10/2023 CHOL 194 04/14/2020 CHOL 227 12/29/2012 LDL 61 12/06/2023 LDL 120 04/14/2020 LDL 162 12/29/2012 HDL 47 12/06/2023 HDL 50 11/10/2023 HDL 51 04/14/2020 HDL 33 12/29/2012 TG 103 12/06/2023 TG 180 11/10/2023 TG 114 04/14/2020 TG 162 12/29/2012 The ASCVD Risk score (Rui HERBERT, et al., 2019) failed to calculate for the following reasons: The valid total cholesterol range is 130 to 320 mg/dL Albumin/Creat Ratio (mg/g) Date Value 11/24/2022 <17 PHARMACOTHERAPY ASSESSMENT/PLAN: 1. Type 2 diabetes mellitus with diabetic neuropathy, with long-term current use of insulin ([facility]) - ICD9: 250.60, 357.2, V58.67, ICD10: E11.40, Z79.4 A1c goal < 7%; controlled (last A1c 6.1%); TIR at goal; had 1 episode low BG, possible compression lows; will trial without mealtime insulin and f/up in 2 weeks DISCONTINUE Admelog with meals (on HOLD) Continue other medications Applauded on lifestyle modifications - INSULIN LISPRO (U-100) 100 UNIT/ML SUBCUTANEOUS PEN - ALBUMIN/CREATININE RATIO, URINE Follow-up Patient is scheduled to see PCP team on 04/11. Patient to have f/up with PharmD team on 12/25. Patient verbalized understanding of instructions. Torrie Howard PharmD, BCPS Primary Care Clinical Pharmacist Time spent: 24 mins documented in this encounter [facility] 12-12-2023 Note HNO ID: [id number] Author: TORRIE HOWARD RPh Service: ? Author Type: Pharmacist Type: Progress Notes Filed: 12/12/2023 15:28 Note Text: Primary Care Pharmacy Visit CC (Reason for Consult): Diabetes (E11.40, Z79.4) Type 2 diabetes mellitus with diabetic neuropathy, with long-term current use of insulin (HCC) (primary encounter diagnosis) Goal: A1c < 7% Last Collaborating Provider Visit: 03/23/23 Isai Graham is a 53 year old adult presenting for follow up visit virtually. Patient consents to pharmacy collaborative practice agreement. Interim Events: ED at [facility] in late February for high BG and feeling like passing out; not admitted 03/10: referred to PharmD to help with DM mngt 03/16: initial PharmD visit; insulin increased; advised to read nutrition labels and limit Total Carbs; encouraged lifestyle mods, CGM ordered; plan to discuss GLP1 at future visit 03/22: Endo switched metformin to ER and increased dose; Trulicity started; dietary mods encouraged 03/23: no med changes 04/04: no med changes since endo recently started Trulicity 05/23: Trulicity increased 07/12: Trulicity increased to 4.5mg weekly, but that wasn't in stock so 3mg resumed 07/19: rosuvastatin started 11/15: Dexcom CGM ordered HPI: Doing well. Feels good. Losing weight. Eating better. Current DM Medications: Metformin ER 500mg tabs - 1000mg BID Dulaglutide (Trulicity) 3mg weekly on Sundays Insulin glargine (Lantus) 28 units QHS (taking 22 units) Insulin lispro (Admelog) 5 units + SSI TIDAC (taking 5 units before meals, usually eats 1 meal/day) Past DM medications: Trulicity - headache Metformin 1000mg BID - diarrhea CGM Data Hypoglycemia: several nights ago had a low alert around 3 AM, no sx. Ate a [place] [employer]. Preventative Medications: On RADHA/ARB: Yes On Statin: Yes ROS: Patient denies CP, SOB, MARVIN, blurred vision, dizziness or lightheadedness Patient denies symptoms of hypoglycemia (sweating, anxiety, palpitations, hunger, and tremor) Patient denies symptoms of hyperglycemia (polyuria, polydipsia, polyphagia) Patient denies potential medication adverse effects DIET/EXERCISE/SOCIAL Hx: Only eats about 1 meal per day Chicken and salads Stopped eating fried food Has cut back on sugar, cut back on night time snacking MEDICATIONS: Pill bottles are not present. Adherence: denies missed doses. Pharmacy: [facility] [address] [place] [address] [id number] - [address] - [phone] Rx coverage: Payor: [facility] MEDICAID / Plan: [facility] MEDICAID / Product Type: Medicaid / Medications affordable? 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 ALLERGIES Allergen Reactions Atorvastatin Myalgia Severe muscle cramps Penicillins Unknown Medication List Medication Directions Comments Action/Plan alcohol swabs Use with blood glucose test once daily. Insulin Dep? No apixaban (ELIQUIS) 5 mg tab(s) Take 1 tablet by mouth two times a day. blood sugar diagnostic test strip Use with blood glucose test once daily, Insulin Dep? No Blood-Glucose Meter,Continuous (DEXCOM G7 ADJUNCT FACULTY) misc Use to check blood sugar at least four (4) times daily. Blood-Glucose Sensor (DEXCOM G7 SENSOR) kali Apply new sensor every ten (10) days. COMPOUNDED PRESCRIPTION Initiate CPAP @ 13 cm of water with humidification mask (per patient preference) optional chin strap (if indicated) and lifetime supplies DX: BE 327.23 dulaglutide (TRULICITY) 3 mg/0.5 mL pen injector Inject 3 mg subcutaneously one time a week. estradiol (ESTRACE) 2 mg tablet Take 1 tablet by mouth once daily. finasteride (PROSCAR) 5 mg tablet Take 1 tablet by mouth once daily. insulin glargine (BASAGLAR KWIKPEN U-100 INSULIN) 100 unit/mL (3 mL) Inject 28 Units subcutaneously daily at bedtime. This REPLACES Levemir. insulin lispro (ADMELOG SOLOSTAR U-100 INSULIN) 100 unit/mL Inject 5 units plus sliding scale up to 3 times daily before meals. If pre-meal BG 150-199, take extra 1 unit; BG 200-249 = 2 units; BG 250-299 = 3 units; BG 300-349 = 4 units; BG 350-399 = 5 units, BG 400-449 = 6 units, BG 450 and greater = extra 7 units. Max dose 36 units/day. Insulin [place], Disposable, (PEN NEEDLE) 32 gauge x 5/32 Use to inject insulin up to 4 times per day as directed. Lancets lancets Use with blood glucose test once daily. Insulin Dep? No lisinopril (ZESTRIL) 10 mg tablet Take 1 tablet by mouth once daily. metFORMIN ER (GLUCOPHAGE XR) 500 mg 24 hr tablet Take 2 tablets by (more content not included)... [facility] 11-17-2023 Telephone encounter Note LV 03/23/23 Next appt 04/12/23 Requested Prescriptions Pending Prescriptions Disp Refills Blood-Glucose Sensor (DEXCOM G7 SENSOR) kali 9 Each 3 Sig: Apply new sensor every ten (10) days. [facility] 11-17-2023 Miscellaneous Notes LV 03/23/23 Next appt 04/12/23 Requested Prescriptions Pending Prescriptions Disp Refills Blood-Glucose Sensor (DEXCOM G7 SENSOR) kali 9 Each 3 Sig: Apply new sensor every ten (10) days. documented in this encounter [facility] 11-16-2023 History of Presen t illness Narrative Primary Care Pharmacy Visit CC (Reason for Consult): Diabetes (E11.40, Z79.4) Type 2 diabetes mellitus with diabetic neuropathy, with long-term current use of insulin ([facility]) (primary encounter diagnosis) Goal: A1c < 8% Last Collaborating Provider Visit: 03/23/23 Isai Graham is a 53 year old adult presenting for follow up visit virtually. Patient consents to pharmacy collaborative practice agreement. Interim Events: ED at [facility] in late February for high BG and feeling like passing out; not admitted 2/1: referred to PharmD to help with DM mngt 03/16: initial PharmD visit; insulin increased; advised to read nutrition labels and limit Total Carbs; encouraged lifestyle mods, CGM ordered; plan to discuss GLP1 at future visit 03/22: Endo switched metformin to ER and increased dose; Trulicity started; dietary mods encouraged 03/23: no med changes 04/04: no med changes since endo recently started Trulicity 05/23: Trulicity increased 07/12: Trulicity increased to 4.5mg weekly, but that wasn't in stock so 3mg resumed 07/19: rosuvastatin started HPI: Feels things are going great. Tolerating meds well. Just received a new refill of Trulicity, has 4 pens remaining. Hasn't been using the CGM, it keeps falling off arm. Does have tape she uses occasionally to help it stick. Personal goals: keep Bgs controlled, staying healthy, weight loss. Reports she has been taking rosuvastatin consistently, though did run out a couple of times. Just got a refill recently, taking consistently now. Current DM Medications: Metformin ER 500mg tabs - 1000mg BID Dulaglutide (Trulicity) 3mg weekly on Sundays Insulin glargine (Lantus) 28 units QHS Insulin lispro (Admelog) 5 units + SSI TIDAC (usually 5-6 units with meals, usually 2 shots/day) Past DM medications: Trulicity - headache Metformin 1000mg BID - diarrhea SMBGS (Fingersticks) Bgs usually 100s-220s No lows Preventative Medications: On RADHA/ARB: Yes On Statin: Yes ROS: Patient denies CP, SOB, MARVIN, blurred vision, dizziness or lightheadedness Patient denies symptoms of hypoglycemia (sweating, anxiety, palpitations, hunger, and tremor) Patient denies symptoms of hyperglycemia (polyuria, polydipsia, polyphagia) Patient denies potential medication adverse effects DIET/EXERCISE/SOCIAL Hx: Trying to eat healthy but sometime I splurge Does some occasional fasting MEDICATIONS: Pill bottles are not present. Adherence: denies missed doses. Pharmacy: [facility] [address] [place] [address] [address] [phone] Rx coverage: Payor: [facility] MEDICAID / Plan: [facility] MEDICAID / Product Type: Medicaid / Medications affordable? 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 ALLERGIES Allergen Reactions Atorvastatin Myalgia Severe muscle cramps Penicillins Unknown Medication List Medication Directions Comments Action/Plan alcohol swabs Use with blood glucose test once daily. Insulin Dep? No apixaban (ELIQUIS) 5 mg tab(s) Take 1 tablet by mouth two times a day. blood sugar diagnostic test strip Use with blood glucose test once daily, Insulin Dep? No Blood-Glucose Meter,Continuous (DEXCOM G7 ADJUNCT FACULTY) misc Use to check blood sugar at least four (4) times daily. Blood-Glucose Sensor (DEXCOM G7 SENSOR) kali Apply new sensor every ten (10) days. COMPOUNDED PRESCRIPTION Initiate CPAP @ 13 cm of water with humidification mask (per patient preference) optional chin strap (if indicated) and lifetime supplies DX: BE 327.23 Discontinued: 11/10/2023 9:35 AM dulaglutide (TRULICITY) 3 mg/0.5 mL pen injector Inject 3 mg subcutaneously one time a week. Discontinued: 11/10/2023 10:36 AM estradiol (ESTRACE) 2 mg tablet Take 1 tablet by mouth once daily. finasteride (PROSCAR) 5 mg tablet Take 1 tablet by mouth once daily. insulin glargine (BASAGLAR KWIKPEN U-100 INSULIN) 100 unit/mL (3 mL) Inject 28 Units subcutaneously daily at bedtime. This REPLACES Levemir. insulin lispro (ADMELOG SOLOSTAR U-100 INSULIN) 100 unit/mL Inject 5 units plus sliding scale up to 3 times daily before meals. If pre-meal BG 150-199, take extra 1 unit; BG 200-249 = 2 units; BG 250-299 = 3 units; BG 300-349 = 4 units; BG 350-399 = 5 units, BG 400-449 = 6 units, BG 450 and greater = extra 7 units. Max dose 36 units/day. Insulin [place], Disposable, (PEN NEEDLE) 32 gauge x 5/32 Use to inject insulin up to 4 times per day as directed. Lancets lancets Use with blood glucose test once daily. Insulin Dep? No lisinopril (ZESTRIL) 10 mg tablet Take 1 tablet by mouth once daily. metFORMIN ER (GLUCOPHAGE XR) 500 mg 24 hr tablet Take 2 tablets by mouth two times a day with meals. Discontinued: 11/10/2023 10:16 AM metoprolol tartrate, short acting, (LOPRESSOR) 25 mg tablet Take 1 tablet by mouth two times a day. dutcj-2l-wlh-epa-fish oil (OMEGA-3 FISH OIL) 300-1,000 mg cap Take 1 capsule by mouth once daily. Discontinued: 11/10/2023 9:35 AM rosuvastatin (CRESTOR) 20 mg tablet Take 1 tablet by mouth once daily. Exam: There were no vitals taken for this visit. Last 3 Encounter BP Readings: Date: BP: 03/22/2023 118/67 01/19/2023 120/81 11/24/2022 117/78 Wt: 0 kg () BMI: 0.00 kg/(m^2) LABS: Reviewed Lab Results Component Value Date HBA1C 5.8 07/19/2023 HBA1C 12.5 03/22/2023 HBA1C 6.0 07/22/2022 HBA1C 7.9 02/23/2022 CMP: Glucose 84 11/10/2023 BUN 11 11/10/2023 Creatinine 0.74 11/10/2023 Sodium 139 11/10/2023 Potassium 4.6 11/10/2023 Chloride 104 11/10/2023 CO2 24 11/10/2023 Protein, Total 7.3 11/10/2023 Albumin 4.1 11/10/2023 Calcium 9.9 11/10/2023 Alkaline Phosphatase 58 11/10/2023 Bilirubin, Total 0.2 11/10/2023 AST 21 11/10/2023 ALT 27 11/10/2023 eGFR 96 Lab Results Component Value Date CHOL 216 11/10/2023 CHOL 194 04/14/2020 CHOL 227 12/29/2012 LDL 130 11/10/2023 LDL 117 09/01/2021 LDL 120 04/14/2020 LDL 162 12/29/2012 HDL 50 11/10/2023 HDL 51 04/14/2020 HDL 33 12/29/2012 TG 180 11/10/2023 TG 114 04/14/2020 TG 162 12/29/2012 The 10-year ASCVD risk score (Rui HERBERT, et al., 2019) is: 5.2% Values used to calculate the score: Age: 53 years Sex: Female Is Non- : No Diabetic: Yes Tobacco smoker: No Systolic Blood Pressure: 118 mmHg Is BP treated: Yes HDL Cholesterol: 50 mg/dL Total Cholesterol: 216 mg/dL Albumin/Creat Ratio (mg/g) Date Value 11/24/2022 <17 PHARMACOTHERAPY ASSESSMENT/PLAN: 1. Type 2 diabetes mellitus with diabetic neuropathy, with long-term current use of insulin ([facility]) - ICD9: 250.60, 357.2, V58.67, ICD10: E11.40, Z79.4 A1c goal < 7%; controlled (last A1c 5.8%); reported SMBGs reasonably controlled; tolerating regimen well; no lows; will plan to use remaining 4 wk supply of Trulicity and then increase to 4.5mg weekly; will have pt restart Dexcom CGM and review report in 4 weeks to determine what insulin dose reduction can be made with Trulicity dose increase; pt reports taking rosuvastatin despite no change to cholesterol panel --> will get repeat labs and confirm and then increase dose if needed Continue current regimen Start Dexcom - reviewed adhesion tips (Skin Tac, overlay patches, not using moisturizing lotion/soap) Labs prior to next appt - HEMOGLOBIN A1C - COMPREHENSIVE METABOLIC PANEL - LIPID PANEL, NONFASTING Follow-up Patient is scheduled to see PCP team on 04/11. Patient to have f/up with PharmD team on 12/11. Patient verbalized understanding of instructions. Torrie Howard PharmD, BCPS Primary Care Clinical Pharmacist Time spent: 30 mins documented in this encounter [facility] 11-16-2023 Note HNO ID: [id number] Author: TORRIE HOWARD RPh Service: ? Author Type: Pharmacist Type: Progress Notes Filed: 11/16/2023 16:37 Note Text: Primary Care Pharmacy Visit CC (Reason for Consult): Diabetes (E11.40, Z79.4) Type 2 diabetes mellitus with diabetic neuropathy, with long-term current use of insulin ([facility]) (primary encounter diagnosis) Goal: A1c < 8% Last Collaborating Provider Visit: 03/23/23 Isai Graham is a 53 year old adult presenting for follow up visit virtually. Patient consents to pharmacy collaborative practice agreement. Interim Events: ED at [facility] in late February for high BG and feeling like passing out; not admitted 03/10: referred to PharmD to help with DM mngt 03/16: initial PharmD visit; insulin increased; advised to read nutrition labels and limit Total Carbs; encouraged lifestyle mods, CGM ordered; plan to discuss GLP1 at future visit 03/22: Endo switched metformin to ER and increased dose; Trulicity started; dietary mods encouraged 03/23: no med changes 04/04: no med changes since endo recently started Trulicity 05/23: Trulicity increased 07/12: Trulicity increased to 4.5mg weekly, but that wasn't in stock so 3mg resumed 07/19: rosuvastatin started HPI: Feels things are going great. Tolerating meds well. Just received a new refill of Trulicity, has 4 pens remaining. Hasn't been using the CGM, it keeps falling off arm. Does have tape she uses occasionally to help it stick. Personal goals: keep Bgs controlled, staying healthy, weight loss. Reports she has been taking rosuvastatin consistently, though did run out a couple of times. Just got a refill recently, taking consistently now. Current DM Medications: Metformin ER 500mg tabs - 1000mg BID Dulaglutide (Trulicity) 3mg weekly on Sundays Insulin glargine (Lantus) 28 units QHS Insulin lispro (Admelog) 5 units + SSI TIDAC (usually 5-6 units with meals, usually 2 shots/day) Past DM medications: Trulicity - headache Metformin 1000mg BID - diarrhea SMBGS (Fingersticks) Bgs usually 100s-220s No lows Preventative Medications: On RADHA/ARB: Yes On Statin: Yes ROS: Patient denies CP, SOB, MARVIN, blurred vision, dizziness or lightheadedness Patient denies symptoms of hypoglycemia (sweating, anxiety, palpitations, hunger, and tremor) Patient denies symptoms of hyperglycemia (polyuria, polydipsia, polyphagia) Patient denies potential medication adverse effects DIET/EXERCISE/SOCIAL Hx: Trying to eat healthy but sometime I splurge Does some occasional fasting MEDICATIONS: Pill bottles are not present. Adherence: denies missed doses. Pharmacy: [facility] [address] [place] [address] [address] [facility] [phone] Rx coverage: Payor: [employer] MEDICAID / Plan: [email or web address] MEDICAID / Product Type: Medicaid / Medications affordable? 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 ALLERGIES Allergen Reactions Atorvastatin Myalgia Severe muscle cramps Penicillins Unknown Medication List Medication Directions Comments Action/Plan alcohol swabs Use with blood glucose test once daily. Insulin Dep? No apixaban (ELIQUIS) 5 mg tab(s) Take 1 tablet by mouth two times a day. blood sugar diagnostic test strip Use with blood glucose test once daily, Insulin Dep? No Blood-Glucose Meter,Continuous (DEXCOM G7 ADJUNCT FACULTY) misc Use to check blood sugar at least four (4) times daily. Blood-Glucose Sensor (DEXCOM G7 SENSOR) kali Apply new sensor every ten (10) days. COMPOUNDED PRESCRIPTION Initiate CPAP @ 13 cm of water with humidification mask (per patient preference) optional chin strap (if indicated) and lifetime supplies DX: BE 327.23 Discontinued: 11/10/2023 9:35 AM dulaglutide (TRULICITY) 3 mg/0.5 mL pen injector Inject 3 mg subcutaneously one time a week. Discontinued: 11/10/2023 10:36 AM estradiol (ESTRACE) 2 mg tablet Take 1 tablet by mouth once daily. finasteride (PROSCAR) 5 mg tablet Take 1 tablet by mouth once daily. insulin glargine (BASAGLAR KWIKPEN U-100 INSULIN) 100 unit/mL (3 mL) Inject 28 Units subcutaneously daily at bedtime. This REPLACES Levemir. insulin lispro (ADMELOG SOLOSTAR U-100 INSULIN) 100 unit/mL Inject 5 units plus sliding scale up to 3 times daily before meals. If pre-meal BG 150-199, take extra 1 unit; BG 200-249 = 2 units; BG 250-299 = 3 units; BG 300-349 = 4 units; BG 350-399 = 5 units, BG 400-449 = 6 units, BG 450 and greater = extra 7 units. Max dose 36 units/day. Insulin [place], Dispos (more content not included)... [facility] 11-10-2023 Telephone encounter Note Pharmacy electronically requests the following refill(s) Last visit 03/23/23 Future 04/11/24 Requested Prescriptions Pending Prescriptions Disp Refills estradiol (ESTRACE) 2 mg tablet 90 tablet 0 Sig: Take 1 tablet by mouth once daily. Violeta Beltran LPN [facility] 11-10-2023 Miscellaneous Notes Pharmacy electronically requests the following refill(s) Last visit 03/23/23 Future 04/11/24 Requested Prescriptions Pending Prescriptions Disp Refills estradiol (ESTRACE) 2 mg tablet 90 tablet 0 Sig: Take 1 tablet by mouth once daily. Violeta Beltran LPN documented in this encounter [facility] 11-10-2023 Telephone encounter Note Pharmacy electronically requests the following refill(s) Last visit 03/23/23 Future 04/11/24 Requested Prescriptions Pending Prescriptions Disp Refills metoprolol tartrate, short acting, (LOPRESSOR) 25 mg tablet 180 tablet 1 Sig: Take 1 tablet by mouth two times a day. Violeta Beltran LPN [facility] 11-10-2023 Miscellaneous Notes Pharmacy electronically requests the following refill(s) Last visit 03/23/23 Future 04/11/24 Requested Prescriptions Pending Prescriptions Disp Refills metoprolol tartrate, short acting, (LOPRESSOR) 25 mg tablet 180 tablet 1 Sig: Take 1 tablet by mouth two times a day. Violeta Beltran LPN documented in this encounter [facility] 11-10-2023 Telephone encounter Note Refilled for 90 days. Due for follow-up. Sent [employer] message. The following approved medication requests have been transmitted electronically. Requested Prescriptions Signed Prescriptions Disp Refills rosuvastatin (CRESTOR) 20 mg tablet 90 tablet 0 Sig: Take 1 tablet by mouth once daily. Authorizing Provider: [facility]MM HAIRSTON dulaglutide (TRULICITY) 3 mg/0.5 mL pen injector 2 mL 2 Sig: Inject 3 mg subcutaneously one time a week. Authorizing Provider: UMM HAIRSTON APRN.DEYA [facility] 11-10-2023 Miscellaneous Notes Refilled for 90 days. Due for follow-up. Sent [employer] message. The following approved medication requests have been transmitted electronically. Requested Prescriptions Signed Prescriptions Disp Refills rosuvastatin (CRESTOR) 20 mg tablet 90 tablet 0 Sig: Take 1 tablet by mouth once daily. Authorizing Provider: [facility]MM HAIRSTON dulaglutide (TRULICITY) 3 mg/0.5 mL pen injector 2 mL 2 Sig: Inject 3 mg subcutaneously one time a week. Authorizing Provider: [facility] HAIRSTON APRN.CNP Requester: Patient Patients last Endocrinology visit occurred 05/24/23 with Umm Hairston CNP Patient was due to follow up in 3 months around 08/23/23, no appointment scheduled.Records show that there is refills for Crestor at the pharmacy. Upcoming Endocrinology Appointments - Next 365 Days No appointments to display . Requested Prescriptions Pending Prescriptions Disp Refills rosuvastatin (CRESTOR) 20 mg tablet 90 tablet 3 Sig: Take 1 tablet by mouth once daily. dulaglutide (TRULICITY) 3 mg/0.5 mL pen injector 2 mL 0 Sig: Inject 3 mg subcutaneously one time a week. If patient is due for an appointment please route to provider for refill consideration and also to the endo scheduling pool. PSS NOTE: Patient needs scheduled appointment Yes Patient needs an appointment. documented in this encounter [facility] 11-10-2023 Telephone encounter Note Requester: Patient Patients last Endocrinology visit occurred 05/24/23 with Umm Hairston CNP Patient was due to follow up in 3 months around 08/23/23, no appointment scheduled.Records show that there is refills for Crestor at the pharmacy. Upcoming Endocrinology Appointments - Next 365 Days No appointments to display . Requested Prescriptions Pending Prescriptions Disp Refills rosuvastatin (CRESTOR) 20 mg tablet 90 tablet 3 Sig: Take 1 tablet by mouth once daily. dulaglutide (TRULICITY) 3 mg/0.5 mL pen injector 2 mL 0 Sig: Inject 3 mg subcutaneously one time a week. If patient is due for an appointment please route to provider for refill consideration and also to the endo scheduling pool. PSS NOTE: Patient needs scheduled appointment Yes Patient needs an appointment. [facility] 10-11-2023 Telephone encounter Note Pharmacy electronically requests the following refill(s) Last visit 03/23/23 Future 04/11/24 Requested Prescriptions Pending Prescriptions Disp Refills apixaban (ELIQUIS) 5 mg tab(s) 180 tablet 1 Sig: Take 1 tablet by mouth two times a day. Violeta Beltran LPN [facility] 10-11-2023 Miscellaneous Notes Pharmacy electronically requests the following refill(s) Last visit 03/23/23 Future 04/11/24 Requested Prescriptions Pending Prescriptions Disp Refills apixaban (ELIQUIS) 5 mg tab(s) 180 tablet 1 Sig: Take 1 tablet by mouth two times a day. Violeta Beltran LPN documented in this encounter [facility] 10-11-2023 Telephone encounter Note Pharmacy electronically requests the following refill(s) Last visit 03/23/23 Future 04/11/24 Requested Prescriptions Pending Prescriptions Disp Refills Insulin [place], Disposable, (PEN NEEDLE) 32 gauge x 5/32 400 Each 3 Sig: Use to inject insulin up to 4 times per day as directed. insulin lispro (ADMELOG SOLOSTAR U-100 INSULIN) 100 unit/mL 45 mL 3 Sig: Inject 5 units plus sliding scale up to 3 times daily before meals. If pre-meal BG 150-199, take extra 1 unit; BG 200-249 = 2 units; BG 250-299 = 3 units; BG 300-349 = 4 units; BG 350-399 = 5 units, BG 400-449 = 6 units, BG 450 and greater = extra 7 units. Max dose 36 units/day. Violeta Beltran LPN [facility] 10-11-2023 Miscellaneous Notes Pharmacy electronically requests the following refill(s) Last visit 03/23/23 Future 04/11/24 Requested Prescriptions Pending Prescriptions Disp Refills Insulin [place], Disposable, (PEN NEEDLE) 32 gauge x 5/32 400 Each 3 Sig: Use to inject insulin up to 4 times per day as directed. insulin lispro (ADMELOG SOLOSTAR U-100 INSULIN) 100 unit/mL 45 mL 3 Sig: Inject 5 units plus sliding scale up to 3 times daily before meals. If pre-meal BG 150-199, take extra 1 unit; BG 200-249 = 2 units; BG 250-299 = 3 units; BG 300-349 = 4 units; BG 350-399 = 5 units, BG 400-449 = 6 units, BG 450 and greater = extra 7 units. Max dose 36 units/day. Violeta Beltran LPN documented in this encounter [facility] 09-19-2023 Telephone encounter Note Estradiol is ordered and sent to her pharmacy. Pt needs follow up appointment. It should be 'in-person'. Please call pt and schedule. Thank you. [facility] 09-19-2023 Miscellaneous Notes Estradiol is ordered and sent to her pharmacy. Pt needs follow up appointment. It should be 'in-person'. Please call pt and schedule. Thank you. Pharmacy electronically requests the following refill(s) Last visit 03/23/23 No future appt Requested Prescriptions Pending Prescriptions Disp Refills estradiol (ESTRACE) 2 mg tablet 90 tablet 3 Sig: Take 1 tablet by mouth once daily. Refused Prescriptions Disp Refills lisinopril (ZESTRIL) 10 mg tablet 90 tablet 3 Sig: Take 1 tablet by mouth once daily. finasteride (PROSCAR) 5 mg tablet 90 tablet 3 Sig: Take 1 tablet by mouth once daily. Insulin [place], Disposable, (PEN NEEDLE) 32 gauge x 5/32 400 Each 3 Sig: Use to inject insulin up to 4 times per day as directed. Violeta Beltran LPN documented in this encounter [facility] 09-19-2023 Telephone encounter Note Pharmacy electronically requests the following refill(s) Last visit 03/23/23 No future appt Requested Prescriptions Pending Prescriptions Disp Refills insulin glargine (BASAGLAR KWIKPEN U-100 INSULIN) 100 unit/mL (3 mL) 30 mL 3 Sig: Inject 28 Units subcutaneously daily at bedtime. This REPLACES Levemir. Violeta Beltran LPN [facility] 09-19-2023 Miscellaneous Notes Pharmacy electronically requests the following refill(s) Last visit 03/23/23 No future appt Requested Prescriptions Pending Prescriptions Disp Refills insulin glargine (BASAGLAR KWIKPEN U-100 INSULIN) 100 unit/mL (3 mL) 30 mL 3 Sig: Inject 28 Units subcutaneously daily at bedtime. This REPLACES Levemir. Violeta Beltran LPN documented in this encounter [facility] 09-19-2023 Telephone encounter Note Pharmacy electronically requests the following refill(s) Last visit 03/23/23 No future appt Requested Prescriptions Pending Prescriptions Disp Refills estradiol (ESTRACE) 2 mg tablet 90 tablet 3 Sig: Take 1 tablet by mouth once daily. Refused Prescriptions Disp Refills lisinopril (ZESTRIL) 10 mg tablet 90 tablet 3 Sig: Take 1 tablet by mouth once daily. finasteride (PROSCAR) 5 mg tablet 90 tablet 3 Sig: Take 1 tablet by mouth once daily. Insulin [place], Disposable, (PEN NEEDLE) 32 gauge x 5/32 400 Each 3 Sig: Use to inject insulin up to 4 times per day as directed. Violeta Beltran LPN [facility] 07-13-2023 History of Presen t illness Narrative Primary Care Pharmacy Visit CC (Reason for Consult): Diabetes (E11.40, Z79.4) Type 2 diabetes mellitus with diabetic neuropathy, with long-term current use of insulin (HCC) (primary encounter diagnosis) Goal: A1c < 8% Last Collaborating Provider Visit: 03/23/23 Isai Graham is a 53 year old adult presenting for follow up visit virtually. Patient consents to pharmacy collaborative practice agreement. Interim Events: ED at [facility] in late February for high BG and feeling like passing out; not admitted 03/10: referred to PharmD to help with DM mngt 03/16: initial PharmD visit; insulin increased; advised to read nutrition labels and limit Total Carbs; encouraged lifestyle mods, CGM ordered; plan to discuss GLP1 at future visit 03/22: Endo switched metformin to ER and increased dose; Trulicity started; dietary mods encouraged 03/23: no med changes 04/04: no med changes since endo recently started Trulicity 05/23: Trulicity increased HPI: Feels things are going very well. Diet is improved, everything I've been doing has been good. Feeling well. Ran out of Trulicity, did not get supply this past week (first missed dose was this Tuesday). Had been doing fine with medication, no ADRs. Thinks she is losing weight though not measuring. Goal is weight loss. Having problems with Dexcom, wasted 6 sensors because sensors didn't go in all the way. Has been using fingersticks, has 1 sensor left. Current DM Medications: Metformin ER 500mg tabs - 1000mg BID Dulaglutide (Trulicity) 3mg weekly on Sundays Insulin detemir (Levemir) 28 units QHS Insulin lispro (Admelog) 5 units + SSI TIDAC (taking 5 units with meals, usually BID) Past DM medications: Trulicity - headache Metformin 1000mg BID - diarrhea SMBGS (Fingersticks) Checking Bgs every 1-2 days; usually 100-120 mg/dL; no issues with low BG Preventative Medications: On RADHA/ARB: Yes On Statin: No ROS: Patient denies CP, SOB, MARVIN, blurred vision, dizziness or lightheadedness Patient denies symptoms of hypoglycemia (sweating, anxiety, palpitations, hunger, and tremor) Patient denies symptoms of hyperglycemia (polyuria, polydipsia, polyphagia) Patient denies potential medication adverse effects DIET/EXERCISE/SOCIAL Hx: Running with dog a lot, doing a lot of gardening Has good energy MEDICATIONS: Pill bottles are not present. Adherence: denies missed doses. Pharmacy: [facility] [address] [place] [address] - [address] [phone] Rx coverage: Payor: [facility] MEDICAID / Plan: [facility] MEDICAID / Product Type: Medicaid / Medications affordable? 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 ALLERGIES Allergen Reactions Atorvastatin Myalgia Severe muscle cramps Penicillins Unknown Medication List Medication Directions Comments Action/Plan alcohol swabs Use with blood glucose test once daily. Insulin Dep? No apixaban (ELIQUIS) 5 mg tab(s) Take 1 tablet by mouth two times a day. blood sugar diagnostic test strip Use with blood glucose test once daily, Insulin Dep? No Blood-Glucose Meter,Continuous (DEXCOM G7 ADJUNCT FACULTY) misc Use to check blood sugar at least four (4) times daily. Blood-Glucose Sensor (DEXCOM G7 SENSOR) kali Apply new sensor every ten (10) days. COMPOUNDED PRESCRIPTION Initiate CPAP @ 13 cm of water with humidification mask (per patient preference) optional chin strap (if indicated) and lifetime supplies DX: BE 327.23 dulaglutide (TRULICITY) 3 mg/0.5 mL pen injector Inject 3 mg subcutaneously one time a week. estradiol (ESTRACE) 2 mg tablet Take 1 tablet by mouth once daily. finasteride (PROSCAR) 5 mg tablet Take 1 tablet by mouth once daily. insulin glargine (BASAGLAR KWIKPEN U-100 INSULIN) 100 unit/mL (3 mL) Inject 28 Units subcutaneously daily at bedtime. This REPLACES Levemir. insulin lispro (ADMELOG SOLOSTAR U-100 INSULIN) 100 unit/mL Inject 5 units plus sliding scale up to 3 times daily before meals. If pre-meal BG 150-199, take extra 1 unit; BG 200-249 = 2 units; BG 250-299 = 3 units; BG 300-349 = 4 units; BG 350-399 = 5 units, BG 400-449 = 6 units, BG 450 and greater = extra 7 units. Max dose 36 units/day. Insulin [place], Disposable, (PEN NEEDLE) 32 gauge x 5/32 Use to inject insulin up to 4 times per day as directed. Lancets lancets Use with blood glucose test once daily. Insulin Dep? No lisinopril (ZESTRIL) 10 mg tablet Take 1 tablet by mouth once daily. metFORMIN ER (GLUCOPHAGE XR) 500 mg 24 hr tablet Take 2 tablets by mouth two times a day with meals. metoprolol tartrate, short acting, (LOPRESSOR) 25 mg tablet Take 1 tablet by mouth two times a day. ngkwa-[id number]-epa-fish oil (OMEGA-3 FISH OIL) 300-1,000 mg cap Take 1 capsule by mouth once daily. Exam: There were no vitals taken for this visit. Last 3 Encounter BP Readings: Date: BP: 03/22/2023 118/67 01/19/2023 120/81 11/24/2022 117/78 Wt: 0 kg () BMI: 0.00 kg/(m^2) LABS: Reviewed Lab Results Component Value Date HBA1C 12.5 03/22/2023 HBA1C 6.0 07/22/2022 HBA1C 7.9 02/23/2022 HBA1C 8.8 05/11/2021 CMP: Glucose 132 07/22/2022 BUN 14 07/22/2022 Creatinine 0.87 07/22/2022 Sodium 138 07/22/2022 Potassium 4.5 07/22/2022 Chloride 104 07/22/2022 CO2 21 07/22/2022 Protein, Total 7.3 07/22/2022 Albumin 4.2 07/22/2022 Calcium 9.4 07/22/2022 Alkaline Phosphatase 57 07/22/2022 Bilirubin, Total 0.4 07/22/2022 AST 41 07/22/2022 ALT 65 07/22/2022 No results found for: GFR CrCl cannot be calculated (Patient's most recent lab result is older than the maximum 180 days allowed.). Lab Results Component Value Date CHOL 227 02/23/2022 CHOL 194 04/14/2020 CHOL 227 12/29/2012 LDL 158 02/23/2022 LDL 117 09/01/2021 LDL 120 04/14/2020 LDL 162 12/29/2012 HDL 40 02/23/2022 HDL 51 04/14/2020 HDL 33 12/29/2012 TG 147 02/23/2022 TG 114 04/14/2020 TG 162 12/29/2012 The ASCVD Risk score (Rui HERBERT, et al., 2019) failed to calculate for the following reasons: The risk score can only compute for male and female sexes Albumin/Creat Ratio (mg/g) Date Value 11/24/2022 <17 PHARMACOTHERAPY ASSESSMENT/PLAN: 1. Type 2 diabetes mellitus with diabetic neuropathy, with long-term current use of insulin ([facility]) - ICD9: 250.60, 357.2, V58.67, ICD10: E11.40, Z79.4 A1c goal < 7%; uncontrolled (last A1c 12.5%); SMBGs much improved and at goal; feeling great; no sx of lows; no CGM to review due to faulty sensors; having Trulicity access issues due to shortage; has tolerated Trulicity 3mg well but currently out of stock at pharmacy; will increase to 4.5mg; likely that patient will be able to get off mealtime insulin with continued lifestyle modifications INCREASE Trulicity to 4.5mg weekly Also sent in prescription for 1.5mg pen and left the 3mg pen script on file because of the shortage. Patient instructed to try to find the 4.5mg pens (preferred) but can fill for either the 3mg or 1.5mg pen if those become in stock at pharmacy. Patient aware NOT to take multiple Trulicity doses Continue other medications Provided [employer] service phone number to request replacement sensors Counseled on s/sx and management of hypoglycemia Requested pt f/up with me via [employer] for the following: If starts experiencing low BG Provide update on which strength of Trulicity he is able to obtain (or if unable to get any) Provide an update of when she places a new CGM sensor so I can review CGM report to determine if further insulin dose adjustments need made Indicated for statin but no updated lipid panel. Will get baseline then discuss statin therapy. Per records, it appears atorva caused severe myalgias in the past and rosuvastatin caused nausea --> could consider pravastatin Follow-up Patient is not scheduled to see PCP team. PharmD f/up via [employer]. Endo appt scheduled for mid-August. Patient verbalized understanding of instructions. Torrie Howard PharmD, [facility] Primary Care Clinical Pharmacist Time spent: 28 mins documented in this encounter [facility] 06-27-2023 Telephone encounter Note Called patient for scheduled virtual visit today. Spoke with patient, she forgot and was very apologetic. Was called into work unexpectedly. Rescheduled for 3. Torrie Howard PharmD, [facility] Primary Care Clinical Pharmacist [facility] Work Phone: 06-27-2023 Miscellaneous Notes Called patient for scheduled virtual visit today. Spoke with patient, she forgot and was very apologetic. Was called into work unexpectedly. Rescheduled for 04/11. Torrie Howard PharmD, [facility] Primary Care Clinical Pharmacist documented in this encounter [facility] 05-24-2023 Instructions Umm Hairston APRN.VOCAL PERFORMER - 05/24/2023 10:42 AM EDT Increase Trulicity to 3 mg weekly -Possible side effects of this class of medications: nausea, reflux, constipation, redness/irritation at the injection site. If you experience nausea or reflux, eating smaller meals can be helpful. -Acute pancreatitis is a rare side effect, presents with severe abdominal pain, nausea/vomiting--go to ER if you experience these side effects. -For more information on the medication, including instructions on how to administer the medication, visit [email or web address] Continue metformin ER 1,000 mg twice daily General recommendations: - Weight loss medications are more effective if combined with healthy diets and routine exercise - Recommend a daily probiotic (such as Culturelle or Align, or similar) for healthy gut biome - Weigh yourself at least once per week - Recommend diet/nutrition trackers (food log, MyFitnessPal) and activity trackers (smart watch, etc) - Adequate, good quality sleep is an important part of weight management. We recommend 7-8 hours of sleep nightly and routine sleep schedules when possible. - For females of child-bearing age: it is not recommended to become while taking medications for weight loss. Please contact our office if you become . Follow-up in 3 months documented in this encounter [facility] 05-24-2023 History of Presen t illness Narrative Images from the original note were not included. [facility] VIRTUAL VISIT--FOLLOW-UP This is a virtual visit using servtagom Video Visit. It required patient-provider interaction for the medical decision making as documented below. I have communicated my name and active licensure. The patient's identity and physical location were verified at the time of this visit. Either the patient or their legal security systems sales representative has been informed of the risks and benefits of -- and alternatives to -- treatment through a remote evaluation and consents to proceed with the evaluation remotely. HISTORY OF PRESENT ILLNESS: Isai Graham is a 53 year old female with a history of obesity class 2, T2DM, gender dysphoria (on HRT since 2011), NAFLD, HTN, HLD, h/o A flutter (on LTAC), BE on CPAP who presents today for follow-up on weight management. Last saw Endocrinology Dr. Brown on 03/22/23. Increased metformin, started Trulicity. Referred to RD. Reports appetite controlled. Clothes fitting looser, though doesn't have weight to report today, as scale needs batteries. Current weight loss medication: metformin ER 1,000 mg twice daily, Trulicity 1.5 mg weekly Side effects of treatment: none Weight trend: decreasing Patient goal: 170-180 lbs Weight graph: Diet: 24 hour recall: B: grapefruit, toast L: none Sn: fruit or vegetable D: chicken Sn: sometimes eats orange Beverages: unsweetened tea Appetite: reduced Portion control: improved Binge eating: once every 2 weeks Emotional eating: no Late night eating: snacks at times Referred to RD 03/22/23, not yet scheduled Exercise/activity level: Walking dog daily/ running for 30-45 min most days Active in house all day Limited by R knee pain Sleep: Adequate, averages 6-8 hours per night Feels rested upon waking BE: follows w/ Pulm/ Sleep Medicine CPAP: using nightly Mood, stress: Functional Previous experience with weight loss medications: Bupropion: no Naltrexone: no Topiramate: no Phentermine: no GLP-1: started Trulicity 03/22/23 Metformin: increased 03/22/23 T2DM: SMBG 3 times daily Averaging BG 120-150 Denies lows Last A1c 12.5% on 03/22/23 Taking metformin 1 g BID, Basaglar 28 units qHS, Admelog 5 units + SS1 TID AC Review Of Systems See HPI and/or patient questionnaire. MEDICAL, FAMILY, and SOCIAL history reviewed and updated in chart ACTIVE PROBLEM LIST Sleep Apnea Encounter for Screening Mammogram for Malignant Neoplasm of Breast Hepatic Steatosis Mixed Hyperlipidemia Gonadal Dysgenesis, 46, Xy Htn (Hypertension) Type 2 Diabetes Mellitus (Hcc) Obesity, Class II, Bmi 35-39.9 Atrial Flutter (Hcc) Current Outpatient Medications on File Prior to Visit Medication Sig apixaban (ELIQUIS) 5 mg tab(s) Take 1 tablet by mouth two times a day. metoprolol tartrate, short acting, (LOPRESSOR) 25 mg tablet Take 1 tablet by mouth two times a day. lisinopril (ZESTRIL) 10 mg tablet Take 1 tablet by mouth once daily. finasteride (PROSCAR) 5 mg tablet Take 1 tablet by mouth once daily. Insulin [place], Disposable, (PEN NEEDLE) 32 gauge x 5/32 Use to inject insulin up to 4 times per day as directed. insulin lispro (ADMELOG SOLOSTAR U-100 INSULIN) 100 unit/mL Inject 5 units plus sliding scale up to 3 times daily before meals. If pre-meal BG 150-199, take extra 1 unit; BG 200-249 = 2 units; BG 250-299 = 3 units; BG 300-349 = 4 units; BG 350-399 = 5 units, BG 400-449 = 6 units, BG 450 and greater = extra 7 units. Max dose 36 units/day. insulin glargine (BASAGLAR KWIKPEN U-100 INSULIN) 100 unit/mL (3 mL) Inject 28 Units subcutaneously daily at bedtime. This REPLACES Levemir. estradiol (ESTRACE) 2 mg tablet Take 1 tablet by mouth once daily. dulaglutide (TRULICITY) 0.75 mg/0.5 mL pen injector Inject 0.75 mg subcutaneously one time a week for 28 days. For 4 weeks then increase to 1.5 mg metFORMIN ER (GLUCOPHAGE XR) 500 mg 24 hr tablet Take 2 tablets by mouth two times a day with meals. dulaglutide (TRULICITY) 1.5 mg/0.5 mL pen injector Inject 1.5 mg subcutaneously one time a week. Patient should start on April 19, 2023. Blood-Glucose Meter,Continuous (DEXCOM G7 ADJUNCT FACULTY) misc Use to check blood sugar at least four (4) times daily. Blood-Glucose Sensor (DEXCOM G7 SENSOR) kali Apply new sensor every ten (10) days. alcohol swabs Use with blood glucose test once daily. Insulin Dep? No Lancets lancets Use with blood glucose test once daily. Insulin Dep? No blood sugar diagnostic test strip Use with blood glucose test once daily, Insulin Dep? No iycdi-2p-duk-epa-fish oil (OMEGA-3 FISH OIL) 300-1,000 mg cap Take 1 capsule by mouth once daily. COMPOUNDED PRESCRIPTION Initiate CPAP @ 13 cm of water with humidification mask (per patient preference) optional chin strap (if indicated) and lifetime supplies DX: BE 327.23 Current Facility-Administered Medications on File Prior to Visit Medication sodium chloride 0.9 % (flush) 10 mL (BD POSIFLUSH) VIDEO EXAM: (if completed, performed via video enabled technology) GENERAL: alert and appropriate, in no distress, well-hydrated, well nourished, and happy, smiling, interactive PERTINENT LABORATORY AND IMAGING: All pertinent laboratory / test results were reviewed. ASSESSMENT/PLAN: (E11.40, Z79.4) Type 2 diabetes mellitus with diabetic neuropathy, with long-term current use of insulin (HCC) (primary encounter diagnosis) (E66.9) Obesity, Class II, BMI 35-39.9 (F64.9) Gender dysphoria (K76.0) Hepatic steatosis (I10) Primary hypertension (E78.2) Mixed hyperlipidemia (I48.3) Typical atrial flutter (HCC) (G47.33) BE (obstructive sleep apnea) (Z79.899) Medication management (Z71.3) Dietary counseling (Z71.82) Exercise counseling Patient comes today for weight management, obesity and its comorbidities treatment. Weight decreasing. Appetite controlled. Clothes fitting looser. Does not have weight to report today, as scale needs batteries. Will send Senexxt message with weight. Last A1c 12.5% on 03/22/23. Recent BG averaging 120-150. Agreeable to increasing Trulicity to 3 mg weekly. - Classification: Obesity Class 2 - Current Weight Loss: (236 lbs on 03/22/23) - Medication recommendations: In crease Trulicity to 3 mg weekly - Dietary recommendations: Low-carb Mediterranean - Exercise recommendations: Goal is 150 minutes moderate-intensity exercise per week + strength training/resistance exercise 2 days per week. - Recommend 7-8 hours sleep nightly, regular sleep pattern, CPAP nightly Orders placed: Orders Placed This Encounter LIPID PANEL BASIC Standing Status: Future Standing Expiration Date: 08/23/2023 Scheduling Instructions: Patient must be Fasting 10-12 hours prior to having blood drawn. (Water is permitted) dulaglutide (TRULICITY) 3 mg/0.5 mL pen injector Sig: Inject 3 mg subcutaneously one time a week. Dispense: 2 mL Refill: 2 Follow-up in 3 months Seeing primary care provider and other specialists regarding issues that are not explained by the condition(s) for which I am seeing the patient. I spent a total of 30 minutes on the date of the service which included preparing to see the patient, [id number] patient care, completing clinical documentation, obtaining and/or reviewing separately obtained history, performing a medically appropriate examination, counseling and educating the patient/family/caregiver, and ordering medications, tests, or procedures. Umm Hairston APRN.[facility] Obesity Medicine Endocrinology and Metabolism [facility] documented in this encounter [facility] 05-16-2023 Miscellaneous Notes Patient requests the following refill(s) Last vv 03/23/23 No future appt Requested Prescriptions Pending Prescriptions Disp Refills apixaban (ELIQUIS) 5 mg tab(s) 180 tablet 1 Sig: Take 1 tablet by mouth two times a day. metoprolol tartrate, short acting, (LOPRESSOR) 25 mg tablet 180 tablet 1 Sig: Take 1 tablet by mouth two times a day. Violeta Beltran LPN documented in this encounter [facility] 05-13-2023 Miscellaneous Notes Last appointment within department: 03/23/2023 ([facility]) Next appointment with department: visit date not found. Patient requests via MyChart refill as follows: Requested Prescriptions Pending Prescriptions Disp Refills lisinopril (ZESTRIL) 10 mg tablet 90 tablet 3 Sig: Take 1 tablet by mouth once daily. finasteride (PROSCAR) 5 mg tablet 90 tablet 3 Sig: Take 1 tablet by mouth once daily. Insulin [place], Disposable, (PEN NEEDLE) 32 gauge x 5/32 400 Each 3 Sig: Use to inject insulin up to 4 times per day as directed. insulin lispro (ADMELOG SOLOSTAR U-100 INSULIN) 100 unit/mL 45 mL 3 Sig: Inject 5 units plus sliding scale up to 3 times daily before meals. If pre-meal BG 150-199, take extra 1 unit; BG 200-249 = 2 units; BG 250-299 = 3 units; BG 300-349 = 4 units; BG 350-399 = 5 units, BG 400-449 = 6 units, BG 450 and greater = extra 7 units. Max dose 36 units/day. Please review and advise. PASCUAL Esquivel documented in this encounter [facility] 04-15-2023 Miscellaneous Notes Last appointment within department: 04/04/2023 ([facility]) Next appointment with department: visit date not found. Patient requests via MyChart refill as follows: Requested Prescriptions Pending Prescriptions Disp Refills insulin glargine (BASAGLAR KWIKPEN U-100 INSULIN) 100 unit/mL (3 mL) 30 mL 3 Sig: Inject 28 Units subcutaneously daily at bedtime. This REPLACES Levemir. Please review and advise. PASCUAL Esquivel documented in this encounter [facility] 04-13-2023 Miscellaneous Notes See Juan msg from 03/16 for patient's question regarding Dexcom. documented in this encounter [facility] 04-04-2023 History of Presen t illness Narrative Primary Care Pharmacy Visit CC (Reason for Consult): Diabetes (E11.65) Inadequately controlled diabetes mellitus (HCC) (primary encounter diagnosis) Goal: A1c < 8% Last Collaborating Provider Visit: 03/23/23 Isai Graham is a 53 year old adult presenting for follow up visit virtually. Patient consents to pharmacy collaborative practice agreement. Interim Events: ED at [facility] in late February for high BG and feeling like passing out; not admitted 03/10: referred to PharmD to help with DM mngt 03/16: initial PharmD visit; insulin increased; advised to read nutrition labels and limit Total Carbs; encouraged lifestyle mods, CGM ordered; plan to discuss GLP1 at future visit 03/22: Endo switched metformin to ER and increased dose; Trulicity started; dietry mods encouraged 03/23: no med changes HPI: Has the Dexcom, likes it a lot. Said this AM her sugar was 130 and BG went up to 250 after breakfast (piece ham, glass of milk, grapefruit (plain)). Having a lot more energy. [place] Not getting up at night to urinate. Not as thirsty. Starting to review nutrition labels Started Trulicity, has had 2 doses so far. Feels it is looking really well, sugars have come down a lot. Clothing fitting a little more loosely. Current DM Medications: Metformin ER 500mg tabs - 1000mg BID Dulaglutide (Trulicity) 0.75mg weekly on Fridays Insulin detemir (Levemir) 28 units QHS Insulin lispro (Admelog) 5 units + SSI TIDAC (taking 5 units, not using SSI) Past DM medications: Trulicity - headache Metformin 1000mg BID - diarrhea CGM Data Sensor usage: ? (Goal >70%) Hypoglycemia events: 0%, 0 events Date range Overall AVG 12a-6a 6a-12p 12p-6p 6p-12a TIME IN RANGE 14 day (%) 7 day 220 ABOVE 72 14 day 252 IN (80-180) 28 30 day BELOW 0 90 day Preventative Medications: On RADHA/ARB: Yes On Statin: No DIET/EXERCISE/SOCIAL Hx: Eating less Reading nutrition labels to limit carbs Noticing grapefruit and milk appears to increase blood sugar MEDICATIONS: Pill bottles are not present. Adherence: denies missed doses. Pharmacy: [facility] [address] [place] [id number] [address] [phone] Rx coverage: Payor: [facility] MEDICAID / Plan: #waywireQinging [employer] MEDICAID / Product Type: Medicaid / Medications affordable? 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 ALLERGIES Allergen Reactions Atorvastatin Myalgia Severe muscle cramps Penicillins Unknown Medication List Medication Directions Comments Action/Plan alcohol swabs Use with blood glucose test once daily. Insulin Dep? No blood sugar diagnostic test strip Use with blood glucose test once daily, Insulin Dep? No Blood-Glucose Meter,Continuous (DEXCOM G7 ADJUNCT FACULTY) misc Use to check blood sugar at least four (4) times daily. Blood-Glucose Sensor (DEXCOM G7 SENSOR) kali Apply new sensor every ten (10) days. COMPOUNDED PRESCRIPTION Initiate CPAP @ 13 cm of water with humidification mask (per patient preference) optional chin strap (if indicated) and lifetime supplies DX: BE 327.23 dulaglutide (TRULICITY) 0.75 mg/0.5 mL pen injector Inject 0.75 mg subcutaneously one time a week for 28 days. For 4 weeks then increase to 1.5 mg dulaglutide (TRULICITY) 1.5 mg/0.5 mL pen injector Inject 1.5 mg subcutaneously one time a week. Patient should start on April 19, 2023. ELIQUIS 5 mg tab(s) take 1 tablet by mouth twice daily Discontinued: 03/23/2023 1:27 PM estradiol (ESTRACE) 2 mg tablet Take 1 tablet by mouth once daily. finasteride (PROSCAR) 5 mg tablet Take 1 tablet by mouth once daily. insulin glargine (BASAGLAR KWIKPEN U-100 INSULIN) 100 unit/mL (3 mL) Inject 28 Units subcutaneously daily at bedtime. This REPLACES Levemir. insulin lispro (ADMELOG SOLOSTAR U-100 INSULIN) 100 unit/mL Inject 5 units plus sliding scale up to 3 times daily before meals. If pre-meal BG 150-199, take extra 1 unit; BG 200-249 = 2 units; BG 250-299 = 3 units; BG 300-349 = 4 units; BG 350-399 = 5 units, BG 400-449 = 6 units, BG 450 and greater = extra 7 units. Max dose 36 units/day. Insulin [place], Disposable, (PEN NEEDLE) 32 gauge x 5/32 Use to inject insulin up to 4 times per day as directed. Lancets lancets Use with blood glucose test once daily. Insulin Dep? No lisinopril (ZESTRIL) 10 mg tablet Take 1 tablet by mouth once daily. metFORMIN ER (GLUCOPHAGE XR) 500 mg 24 hr tablet Take 2 tablets by mouth two times a day with meals. metoprolol tartrate, short acting, (LOPRESSOR) 25 mg tablet Take 1 tablet by mouth twice daily. ehsjx-1d-bsw-epa-fish oil (OMEGA-3 FISH OIL) 300-1,000 mg cap Take 1 capsule by mouth once daily. Exam: There were no vitals taken for this visit. Last 3 Encounter BP Readings: Date: BP: 03/22/2023 118/67 01/19/2023 120/81 11/24/2022 117/78 Wt: 107.4 kg (236 lb 11.2 oz) BMI: 37.07 kg/(m^2) LABS: Reviewed Lab Results Component Value Date HBA1C 12.5 03/22/2023 HBA1C 6.0 07/22/2022 HBA1C 7.9 02/23/2022 HBA1C 8.8 05/11/2021 CMP: Glucose 132 07/22/2022 BUN 14 07/22/2022 Creatinine 0.87 07/22/2022 Sodium 138 07/22/2022 Potassium 4.5 07/22/2022 Chloride 104 07/22/2022 CO2 21 07/22/2022 Protein, Total 7.3 07/22/2022 Albumin 4.2 07/22/2022 Calcium 9.4 07/22/2022 Alkaline Phosphatase 57 07/22/2022 Bilirubin, Total 0.4 07/22/2022 AST 41 07/22/2022 ALT 65 07/22/2022 No results found for: GFR CrCl cannot be calculated (Patient's most recent lab result is older than the maximum 180 days allowed.). Lab Results Component Value Date CHOL 227 02/23/2022 CHOL 194 04/14/2020 CHOL 227 12/29/2012 LDL 158 02/23/2022 LDL 117 09/01/2021 LDL 120 04/14/2020 LDL 162 12/29/2012 HDL 40 02/23/2022 HDL 51 04/14/2020 HDL 33 12/29/2012 TG 147 02/23/2022 TG 114 04/14/2020 TG 162 12/29/2012 The ASCVD Risk score (Rui HERBERT, et al., 2019) failed to calculate for the following reasons: The risk score can only compute for male and female sexes Albumin/Creat Ratio (mg/g) Date Value 11/24/2022 <17 PHARMACOTHERAPY ASSESSMENT/PLAN: 1. Inadequately controlled diabetes mellitus (HCC) - ICD9: 250.00, ICD10: E11.65 A1c goal < 8% though should consider more strict goal of <7% given age; uncontrolled (last A1c 12.5%); SMBGs greatly improved though still above goal; having improved sx hyperglycemia; making dietary changes and started Trulicity; no med change, f/up after next A1c Continue current regimen and Trulicity dose adjustments per endocrinology Applauded on carb counting; encouraged continued efforts to reduce carb intake and exercise more Will send invite to connect via [employer] [facility] - HGB A1C Follow-up Patient is scheduled to see PCP team on 10/17. Patient to have f/up with PharmD team on 06/26. Patient verbalized understanding of instructions. Torrie Howard PharmD, [facility] Primary Care Clinical Pharmacist The majority of the pharmacy visit (> 50%) was spent counseling and/or coordinating care for the patient. interaction: virtual time was 25 minutes. documented in this encounter [facility] 03-23-2023 History of Presen t illness Narrative This Team Access Model visit is a virtual encounter. It required patient-provider interaction for the medical decision making as documented below. [facility] - Internal Medicine - [facility] Patient name: Isai Graham Medical Record: [id number] cc: Patient presents with: Recheck 53 year old adult with ACTIVE PROBLEM LIST Sleep Apnea Encounter for Screening Mammogram for Malignant Neoplasm of Breast Hepatic Steatosis Mixed Hyperlipidemia Gonadal Dysgenesis, 46, Xy Htn (Hypertension) Type 2 Diabetes Mellitus (Hcc) Obesity, Class II, Bmi 35-39.9 Atrial Flutter (Hcc) Patient set up this visit for surveillance of gender affirming hormone therapy. Reports that she was told that she no longer has any refills available for estradiol. Takes 2 mg daily and has done that for more than a decade. No other concerns at this time. Current Outpatient Medications Medication Sig dulaglutide (TRULICITY) 0.75 mg/0.5 mL pen injector Inject 0.75 mg subcutaneously one time a week for 28 days. For 4 weeks then increase to 1.5 mg metFORMIN ER (GLUCOPHAGE XR) 500 mg 24 hr tablet Take 2 tablets by mouth two times a day with meals. [START ON 04/19/2023] dulaglutide (TRULICITY) 1.5 mg/0.5 mL pen injector Inject 1.5 mg subcutaneously one time a week. Patient should start on April 19, 2023. Blood-Glucose Meter,Continuous (DEXCOM G7 ADJUNCT FACULTY) [facility] [place] Use to check blood sugar at least four (4) times daily. Blood-Glucose Sensor (DEXCOM G7 SENSOR) kali Apply new sensor every ten (10) days. insulin glargine (BASAGLAR KWIKPEN U-100 INSULIN) 100 unit/mL (3 mL) Inject 28 Units subcutaneously daily at bedtime. This REPLACES Levemir. Insulin [place], Disposable, (PEN NEEDLE) 32 gauge x 5/32 Use to inject insulin up to 4 times per day as directed. insulin lispro (ADMELOG SOLOSTAR U-100 INSULIN) 100 unit/mL Inject 5 units plus sliding scale up to 3 times daily before meals. If pre-meal BG 150-199, take extra 1 unit; BG 200-249 = 2 units; BG 250-299 = 3 units; BG 300-349 = 4 units; BG 350-399 = 5 units, BG 400-449 = 6 units, BG 450 and greater = extra 7 units. Max dose 36 units/day. lisinopril (ZESTRIL) 10 mg tablet Take 1 tablet by mouth once daily. finasteride (PROSCAR) 5 mg tablet Take 1 tablet by mouth once daily. ELIQUIS 5 mg tab(s) take 1 tablet by mouth twice daily metoprolol tartrate, short acting, (LOPRESSOR) 25 mg tablet Take 1 tablet by mouth twice daily. alcohol swabs Use with blood glucose test once daily. Insulin Dep? No estradiol (ESTRACE) 2 mg tablet Take 1 tablet by mouth once daily. Lancets lancets Use with blood glucose test once daily. Insulin Dep? No blood sugar diagnostic test strip Use with blood glucose test once daily, Insulin Dep? No eytvk-3o-rrx-epa-fish oil (OMEGA-3 FISH OIL) 300-1,000 mg cap Take 1 capsule by mouth once daily. COMPOUNDED PRESCRIPTION Initiate CPAP @ 13 cm of water with humidification mask (per patient preference) optional chin strap (if indicated) and lifetime supplies DX: BE 327.23 Current Facility-Administered Medications Medication Dose Route Frequency sodium chloride 0.9 % (flush) 10 mL (BD POSIFLUSH) 10 mL INTRAVENOUS DIRECTED PRN PE: Gen: No acute distress, well developed Impression: (F64.9) Gender dysphoria (Z79.899) Encounter for long-term (current) use of high-risk medication Plan: #Gender dysphoria Doing well on gender affirmation hormonal therapy with estradiol No obvious negative side effects Physical changes are as expected on medical therapy Testosterone and estradiol levels are in recommended target ranges. Continue current medications and doses Future labs ordered today - CBC (to monitor for anemia), BMP (if on spironolactone), estradiol 17OH, total testosterone FU in 6 months for gender affirmation surveillance care, sooner PRN Medical Decision Making: Problems: Low: Stable chronic illness Data: Unique test result(s) reviewed: 2 Unique test(s) ordered: 2 Risk: Moderate: Drug management Medical Decision Making Level: 4 - Moderate Bobby Bentley MD Internal Medicine - Primary Care [facility] 03/23/2023 1:24 PM documented in this encounter [facility] 03-22-2023 Instructions Ghislaine Brown MD - 03/22/2023 10:35 AM EST Target lean protein intake at 90-100 gm / day- divided into 30 gm( 5 egg whites / 4 oz animal protein) with each meal/ snack - always paired with a fibre ( fruit or vegetable or whole grains) - Chair exercises 3/ week- You tube videos - add resistance training 2/ week ( upper body and lower body )- 10 min sessions on You tube videos add a Probiotic: helps with healthy gut microbiome, helps with healthy weight and optimal cardiac health . documented in this encounter [facility] 03-22-2023 History of Presen t illness Narrative Images from the original note were not included. [facility] NEW PATIENT CONSULT REASON OF VISIT: weight management/obesity and management of its comorbidities REFERRING PHYSICIAN: Dr Gunnar Guthrie, PCP Consultation requested for an opinion regarding Weight Management , and my final recommendations will be communicated back to the requesting physician by way of shared medical record or letter via [place] mail. HISTORY OF PRESENT ILLNESS: Age: [age] year old with Class II Obesity , DM-2 since 3 years - started on Insulin since the last 3 years , Gender Dysphoria- on Hormonal treatment since 2011 - estrogen , Fatty Liver- non alcoholic , HTN, Hyperlipidemia , HO A Flutter- on AC with REJI Gomes- seeing cardio- Dr Rojas , BE - using her CPAP nightly : Patient comes today for follow up of weight management. Weight History - High school graduation weight: 145-150 pounds - started to gain weight in 2005 when she moved back from [place] to be closer to family , also started to gain weight in 2011 after she started her hormones for her gender transition - f/ h of Obesity : Mother struggles - almost 400 pounds per pt - meds causing weight gain: estrogen, beta blockers, - Height: 5'7 Goals for weight loss : 170-180 pounds Weight Loss Medications: -- has been watching her diet closely since last year - lost 14 pounds from 11/2022 till now - more physically active with her dog which has made it possible for her to loose weight - taking Metformin 500 mg po TID - FSBS : Dexcom G7: 250 -300 all day - unable to download as she just put her mortarman on yesterday Diet: -- 24 hr food recall: water B: 9:30 am : grapefruit,black berries, 1 glass of 2 % milk L: 12:30 pm: 2 eggs- fried, 2 slices of white bread with butter, water D: 5 pm: salad- with chicken breast , unsweet tea S: no food - living with her Mother - In a typical week- eats out / take out : very minimal- 1 / month, cooks at home most days Appetite Control: -- not high - binge eating: yes- once every 2 weeks- fruits and vegetables - late night eating: no - emotional eating : no - portion control: more mindful lateful, but was much larger portions in the recent past Exercise: -- walking her dog daily- walking or running, 30 mins to 45 mins most days - active in her house all day - limited at times by her Rt knee pain Sleep: -- wakes up - refreshed in AM - using her CPAP nightly - 6 hours most nights or longer - seeing Pulm / sleep med Stress: -- feeling functional - taking care of her Mom currently - planning to go back to work- [employer] Other pertinent comorbidities: -- per HPI Pertinent Labs Component Latest Ref Rng & Units 02/23/2022 03/05/2022 03/23/2022 03/24/2022 04/21/2022 07/22/2022 11/24/2022 WBC 3.70 - 11.00 k/uL 4.40 5.79 RBC 4.20 - 6.00 m/uL 5.02 4.76 Hemoglobin 13.0 - 17.0 g/dL 14.5 14.2 Hematocrit 39.0 - 51.0 % 43.7 42.6 MCV 80.0 - 100.0 fL 87.1 89.5 MCH 26.0 - 34.0 pg 28.9 29.8 MCHC 30.5 - 36.0 g/dL 33.2 33.3 RDW-CV 11.5 - 15.0 % 12.5 12.4 Platelet Count 150 - 400 k/uL 178 202 MPV 9.0 - 12.7 fL 9.8 9.8 Neut% % 48.8 Abs Neut (ANC) 1.45 - 7.50 k/uL 2.15 Lymph% % 38.0 Abs Lymph 1.00 - 4.00 k/uL 1.67 Gaston% % 7.5 Abs Gaston <0.87 k/uL 0.33 Eosin% % 4.3 Abs Eosin <0.46 k/uL 0.19 Baso% % 0.9 Abs Baso <0.11 k/uL 0.04 Immature Gran % % 0.5 IMMATURE GRANS (ABS) <0.10 k/uL <0.03 NRBC /100 WBC 0.0 Absolute nRBC <0.01 k/uL <0.01 <0.01 DTYPE Auto Protein, Total 6.3 - 8.0 g/dL 7.5 7.7 7.8 7.3 Albumin 3.9 - 4.9 g/dL 4.1 4.2 4.3 4.2 Calcium 8.5 - 10.2 mg/dL 9.9 9.6 9.4 Bilirubin, Total 0.2 - 1.3 mg/dL 0.2 0.3 0.4 0.4 Alkaline Phosphatase 38 - 113 U/L 81 78 81 57 AST 14 - 40 U/L 132 (H) 128 (H) 139 (H) 41 (H) ALT 10 - 54 U/L 312 (H) 250 (H) 229 (H) 65 (H) Glucose 74 - 99 mg/dL 251 (H) 279 (H) 132 (H) BUN 9 - 24 mg/dL 13 14 14 Creatinine 0.73 - 1.22 mg/dL 0.76 0.62 (L) 0.87 Sodium 136 - 144 mmol/L 135 (L) 134 (L) 138 Potassium 3.7 - 5.1 mmol/L 4.9 4.4 4.5 Chloride 97 - 105 mmol/L 102 99 104 CO2 22 - 30 mmol/L 22 23 21 (L) Anion Gap 9 - 18 mmol/L 11 12 13 eGFR 107 Bilirubin, Conjug <0.2 mg/dL <0.2 <0.2 Creatinine, Ur Random (UCRR) 20.0 - 300.0 mg/dL 71.6 Albumin, Urine Random mg/L <12.0 Albumin/Creat Ratio <30 mg/g <17 Hemoglobin A1C 4.3 - 5.6 % 7.9 (H) 6.0 (H) Estimated Average Glucose mg/dL 180 126 Alpha 1 Antitryp Serum 90 - 200 mg/dL 216 (H) Alpha 1 Antitryp Phenotype M1M1 Estradiol 17B pg/mL 337 Testosterone ng/dL 98 Vitamin B12 232-1,245 pg/mL TSH 0.270 - 4.200 mIU/L 1.050 Magnesium 1.7 - 2.3 mg/dL 2.0 Phosphorus mg/dL 3.9 Component Latest Ref Rng & Units 05/11/2021 02/23/2022 03/24/2022 11/24/2022 03/22/2023 Protein, Total 6.3 - 8.0 g/dL 7.8 Albumin 3.9 - 4.9 g/dL 4.3 Calcium 8.5 - 10.2 mg/dL 9.6 Bilirubin, Total 0.2 - 1.3 mg/dL 0.4 Alkaline Phosphatase 38 - 113 U/L 81 AST 14 - 40 U/L 139 (H) ALT 10 - 54 U/L 229 (H) Glucose 74 - 99 mg/dL 279 (H) BUN 9 - 24 mg/dL 14 Creatinine 0.73 - 1.22 mg/dL 0.62 (L) Sodium 136 - 144 mmol/L 134 (L) Potassium 3.7 - 5.1 mmol/L 4.4 Chloride 97 - 105 mmol/L 99 CO2 22 - 30 mmol/L 23 Anion Gap 9 - 18 mmol/L 12 eGFR Creatinine, Ur Random (UCRR) 20.0 - 300.0 mg/dL 71.6 Albumin, Urine Random mg/L <12.0 Albumin/Creat Ratio <30 mg/g <17 Hemoglobin A1C 4.3 - 5.6 % 8.8 (H) 7.9 (H) Estimated Average Glucose mg/dL 206 180 Magnesium 1.7 - 2.3 mg/dL 2.0 Hemoglobin A1C (POCT) 4.3 - 5.6 % 12.5 (A) REVIEW OF SYSTEMS: Review of Systems MEDICATIONS: Current Outpatient Medications on File Prior to Visit Medication Sig insulin glargine (BASAGLAR KWIKPEN U-100 INSULIN) 100 unit/mL (3 mL) Inject 28 Units subcutaneously daily at bedtime. This REPLACES Levemir. metFORMIN (GLUCOPHAGE) 500 mg tablet Take 1 tablet by mouth three times a day with meals. insulin lispro (ADMELOG SOLOSTAR U-100 INSULIN) 100 unit/mL Inject 5 units plus sliding scale up to 3 times daily before meals. If pre-meal BG 150-199, take extra 1 unit; BG 200-249 = 2 units; BG 250-299 = 3 units; BG 300-349 = 4 units; BG 350-399 = 5 units, BG 400-449 = 6 units, BG 450 and greater = extra 7 units. Max dose 36 units/day. Blood-Glucose Meter,Continuous (DEXCOM G7 ADJUNCT FACULTY) mis Use to check blood sugar at least four (4) times daily. Blood-Glucose Sensor (DEXCOM G7 SENSOR) kali Apply new sensor every ten (10) days. Insulin [place], Disposable, (PEN NEEDLE) 32 gauge x 5/32 Use to inject insulin up to 4 times per day as directed. lisinopril (ZESTRIL) 10 mg tablet Take 1 tablet by mouth once daily. finasteride (PROSCAR) 5 mg tablet Take 1 tablet by mouth once daily. ELIQUIS 5 mg tab(s) take 1 tablet by mouth twice daily metoprolol tartrate, short acting, (LOPRESSOR) 25 mg tablet Take 1 tablet by mouth twice daily. alcohol swabs Use with blood glucose test once daily. Insulin Dep? No estradiol (ESTRACE) 2 mg tablet Take 1 tablet by mouth once daily. Lancets lancets Use with blood glucose test once daily. Insulin Dep? No blood sugar diagnostic test strip Use with blood glucose test once daily, Insulin Dep? No bslcx-4p-rke-epa-fish oil (OMEGA-3 FISH OIL) 300-1,000 mg cap Take 1 capsule by mouth once daily. COMPOUNDED PRESCRIPTION Initiate CPAP @ 13 cm of water with humidification mask (per patient preference) optional chin strap (if indicated) and lifetime supplies DX: BE 327.23 Current Facility-Administered Medications on File Prior to Visit Medication sodium chloride 0.9 % (flush) 10 mL (BD POSIFLUSH) SIGNIFICANT PAST MEDICAL HISTORY, SOCIAL HISTORY AND FAMILY HISTORY: PAST MEDICAL HISTORY Diagnosis Date Hepatic steatosis Hormonal imbalance in transgender patient HTN (hypertension) Prediabetes FAMILY HISTORY Problem Relation Age of Onset Diabetes Father other (fungal infection in the blood) Father Obstructive Sleep Apnea Mother COPD Maternal Grandmother No Ocular Disease No Family History Social History Tobacco Use Smoking status: Former Packs/day: .5 Types: Cigarettes Smokeless tobacco: Never Tobacco comments: quit 2011 Substance Use Topics Alcohol use: No Drug use: No PHYSICAL EXAM: Isai Graham is a 53 year old year old adult who looks her stated age. Vital Signs BP 118/67 Pulse 61 Ht 170.2 cm (5' 7) Wt 107.4 kg (236 lb 11.2 oz) BMI 37.07 kg/m General: no acute distress Eyes: extra ocular movements intact, no redness ENT/Neck: thyroid is palpable, normal size, no lymphadenopathy Heart: regular rate and rhythm, no murmurs, rubs or gallops Chest: clear to auscultation bilaterally, no wheezing, Abd: benign, no pain on palpation Skin: no obvious skin lesions, no rashes Psychiatric: normal affect, humor is preserved Neuro: grossly non focal, AOx3 PERTINENT LABORATORY AND IMAGING:All pertinent laboratory results were reviewed. Please see HPI for further details. IMPRESSION/PLAN: Encounter Diagnosis ICD-10-CM 1. Type 2 diabetes mellitus with diabetic neuropathy, with long-term current use of insulin (HCC) E11.40 HEMOGLOBIN A1C (POC) Z79.4 2. Primary hypertension I10 3. Obesity, Class II, BMI 35-39.9 E66.9 4. Hepatic steatosis K76.0 5. BMI 37.0-37.9, adult Z68.37 6. Mixed hyperlipidemia E78.2 7. Typical atrial flutter (HCC) I48.3 8. Gender dysphoria F64.9 Patient comes today for evaluation and weight management and its comorbidities. Patient has a BMI of 37.07 that is OBESITY CLASS II . Patient tried different weight loss modalities in the past including diet and exercise . Pertinent comorbidities include Class II Obesity , DM-2 since 3 years - started on Insulin right away , Gender Dysphoria- on Hormonal treatment since 2011 - estrogen , Fatty Liver- non alcoholic , HTN, Hyperlipidemia , HO A Flutter- on AC with REJI Gomes- seeing cardio- Dr Rojas , BE - using her CPAP nightly. Patient quality of life is compromised due to current weight and patient is motivated for weight loss. The main risk factors for current weight include increased consumption of high calorie/process foods, irregular eating patterns, suboptimal physical activity. Our goal is to treat obesity to decrease long-term medical complications, comorbidities and improve lifestyle. I discussed with the patient the possibility of starting an interdisciplinary lifestyle intervention-weight loss program involving improvement of his diet, a personalized exercise program and also consider the possibility of using medications to control patient appetite in order to help patient to lose weight. Patient is in agreement. Plan -- Reviewed principles of energy metabolism, caloric intake and expenditure -- Goals: -- 5-10% weight loss over 6 months is reasonable -- At least 6-month commitment to losing weight -- Lifestyle changes -- Changing eating, sleeping and behavior habits -- Diet -- to see dietitian to discuss nutrition and behavior changes -- Patient will discuss in detail with our dietitian team the best approach and the best nutritional plan -- portion control -- behavior changes -- Appetite control: -- I have also reviewed with the patient the possibility of using weight loss medications in an effort to reduce his appetite. -- I have reviewed the different therapeutic options available including phentermine, phentermine/topiramate, buproprion/naltrexone, and the GLP1 , GLP 1/GIP agonists -- change to Metformin ER 1 gm po BID - start Trulicity 0.75 mg once weekly for 4 weeks then 1.5 mg once weekly - cont Basaglar 28 units subcut q pm - cont Humalog per ISS - upload her Dexcom G7 readings in 4 weeks to review- pt aware - Target lean protein intake at 90-100 gm / day- divided into 30 gm with each meal/ snack - always paired with a fibre ( fruit or vegetable or whole grains) - see Dietary for a Low Carb Mediterranean nutritional program -add resistance training 2/ week ( upper body and lower body ) + brisk walking per HPI - using her nightly CPAP - add a Probiotic: helps with healthy gut microbiome, helps with healthy weight and optimal cardiac health . -- Exercise -- discussed basic exercise recommendations, the role of exercise on weight loss and maintenance. Discussed the combination of aerobic and resistance exercise. -- most patients benefit from a personalized exercise program. -- Sleep: -- discussed the importance of sleep hygiene -- Stress: -- discussed the effect of stress and its relationship with weight gain. Stress management is very important -- Follow up: -- 2 months with POWER EQUIPMENT TECHNOLOGY INSTRUCTOR and 5-6 months with me I have reviewed the ROS/Questionnaire with patient and recommend the following: Follow-up with PCP for chronic health issues and preventive health screenings. All questions answered today. Ghislaine Brown MD Obesity Medicine Endocrinology and Metabolism [facility] documented in this encounter [facility] 03-16-2023 History of Presen t illness Narrative Primary Care Pharmacy Visit CC (Reason for Consult): Diabetes (E11.65) Inadequately controlled diabetes mellitus (HCC) (primary encounter diagnosis) Goal: A1c < 8% Last Collaborating Provider Visit: 11/24/22 Isai Graham is a 52 year old adult presenting for initial visit: This initial consult was conducted virtually with the patient where the consult agreement was explained. The patient may decline or cancel the agreement at any time. After consideration, the patient consented to the pharmacy consult agreement and agreed to allow medications be collaboratively managed by a pharmacist. Interim Events: ED at [facility] in late February for high BG and feeling like passing out; not admitted 03/10: referred to PharmD to help with DM mngt HPI: Is concerned about her blood sugars. Glucometer read HI this morning after breakfast. She took another metformin and BG reduced to 470. This is the first time seeing a reading that high. Over the past couple of weeks Bgs have been elevated. Can't think of any recent changes. No change to activity level from baseline. Not sure if diet is much different. No signs of any infection. No physical stress to body. Is stressed generally but nothing new that has happed recently. No recent issues with pain, but does get an occasional Charley horse at night. 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 Was in ED several weeks ago because blood sugar was high and felt like she was going to faint. Received an IV which lowered BG. Has been home for at least 1 week. Wasn't admitted. [facility]. Stores insulins in refrigerator in the door. Not doing priming dose. Uses new needle each time. Injects in stomach, rotates spot. Denies any hard nodules or scar tissue. Admits she has liver issues, needs to get a biopsy but nervous to get a procedure. Other personal goals: weight loss Over past few weeks energy is less. Feeling lazy. Feeling blah. Peeing frequently. At night waking up 3x/night, used to only get up once per night. Not sure if having any vision changes, just got new glasses that are trifocals. Is thirsty more. Thinks numbness in feet has gotten a little worse recently. Current DM Medications: Metformin 500mg BID (currently taking 3 pills/day; tolerating fine) Insulin detemir (Levemir) 22 units QHS (recently taking 24 units) Insulin lispro (Admelog) 4 units TIDAC (recently taking 5 units with meals) Past DM medications: Trulicity - headache Metformin 1000mg BID - diarrhea SMBGS (Fingersticks) Past few weeks, Bgs between 260-500+ Prior weeks, Bgs usually 100-300 mg/dL Did have BG down to 80 mg/dL over a month ago; did feel sx, treated with a Lifesaver Preventative Medications: On RADHA/ARB: Yes On Statin: No ROS: Patient denies CP, SOB, MARVIN, blurred vision, dizziness or lightheadedness Patient denies symptoms of hypoglycemia (sweating, anxiety, palpitations, hunger, and tremor) Patient reports symptoms of hyperglycemia (polyuria, polydipsia) Patient denies potential medication adverse effects DIET/EXERCISE/SOCIAL Hx: Eating a lot of fruit: grapefruit, raspberries, bananas Does review nutrition labels, looks at Sugar and Added Sugar; does NOT look at total carbs Breakfast: today had left over sausage with gravy, eggs, 1 biscuit; water; more typically breakfasts are bowl of Special K with sliced banana with 2% milk Lunch: often skips; may eat fruit/berries Dinner: last night had Hero sub sandwich (unusual meal) with fries; more typically eating more salads, chicken breast and chicken wings Snacks: fresh fruit (grapefruit plain) Beverages: water; occasionally a glass of milk Exercise: walks dog daily, sometimes jogs; does about 1/2 mile daily Tobacco: none MEDICATIONS: Pill bottles are present. Adherence: denies missed doses. Pharmacy: [facility] [address] [place] [id number] [phone] [facility] [phone] Rx coverage: Payor: [employer] / Plan: [employer] / Product Type: Medicaid / Medications affordable? 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 ALLERGIES Allergen Reactions Atorvastatin Myalgia Severe muscle cramps Penicillins Unknown Medication List Medication Directions Comments Action/Plan alcohol swabs Use with blood glucose test once daily. Insulin Dep? No blood sugar diagnostic test strip Use with blood glucose test once daily, Insulin Dep? No COMPOUNDED PRESCRIPTION Initiate CPAP @ 13 cm of water with humidification mask (per patient preference) optional chin strap (if indicated) and lifetime supplies DX: BE 327.23 ELIQUIS 5 mg tab(s) take 1 tablet by mouth twice daily Taking BID estradiol (ESTRACE) 2 mg tablet Take 1 tablet by mouth once daily. taking finasteride (PROSCAR) 5 mg tablet Take 1 tablet by mouth once daily. taking insulin detemir U-100 (LEVEMIR FLEXTOUCH U-100 INSULIN) 100 unit/mL (3 mL) injection pen Inject 22 Units subcutaneously daily at bedtime. Taking 24 units insulin lispro (ADMELOG SOLOSTAR U-100 INSULIN) 100 unit/mL Inject 4 Units subcutaneously three times a day before meals. 5 units of Lispro usually twice daily before eating Lancets lancets Use with blood glucose test once daily. Insulin Dep? No supplies lisinopril (ZESTRIL) 10 mg tablet Take 1 tablet by mouth once daily. taking metFORMIN (GLUCOPHAGE) 500 mg tablet Take 1 tablet by mouth twice daily with meals. Taking 3 times day metoprolol tartrate, short acting, (LOPRESSOR) 25 mg tablet Take 1 tablet by mouth twice daily. Taking BID ujyxg-2r-qnm-epa-fish oil (OMEGA-3 FISH OIL) 300-1,000 mg cap Take 1 capsule by mouth once daily. Taking daily UNIFINE PENTIPS PLUS 32 gauge x 5/32 Inject 1 Each subcutaneously once daily. USE DIRECTED. supplies Rx meds not listed in EPIC: none OTCs: Motrin 200mg PRN for pain Herbals: none Exam: There were no vitals taken for this visit. Last 3 Encounter BP Readings: Date: BP: 01/19/2023 120/81 11/24/2022 117/78 04/21/2022 131/82 Wt: 113.3 kg (249 lb 11.2 oz) BMI: 39.11 kg/(m^2) LABS: Reviewed Lab Results Component Value Date HBA1C 6.0 07/22/2022 HBA1C 7.9 02/23/2022 HBA1C 8.8 05/11/2021 CMP: Glucose 132 07/22/2022 BUN 14 07/22/2022 Creatinine 0.87 07/22/2022 Sodium 138 07/22/2022 Potassium 4.5 07/22/2022 Chloride 104 07/22/2022 CO2 21 07/22/2022 Protein, Total 7.3 07/22/2022 Albumin 4.2 07/22/2022 Calcium 9.4 07/22/2022 Alkaline Phosphatase 57 07/22/2022 Bilirubin, Total 0.4 07/22/2022 AST 41 07/22/2022 ALT 65 07/22/2022 No results found for: GFR CrCl cannot be calculated (Patient's most recent lab result is older than the maximum 180 days allowed.). Lab Results Component Value Date CHOL 227 02/23/2022 CHOL 194 04/14/2020 CHOL 227 12/29/2012 LDL 158 02/23/2022 LDL 117 09/01/2021 LDL 120 04/14/2020 LDL 162 12/29/2012 HDL 40 02/23/2022 HDL 51 04/14/2020 HDL 33 12/29/2012 TG 147 02/23/2022 TG 114 04/14/2020 TG 162 12/29/2012 The ASCVD Risk score (Rui HERBERT, et al., 2019) failed to calculate for the following reasons: The patient's sex is missing Albumin/Creat Ratio (mg/g) Date Value 11/24/2022 <17 PHARMACOTHERAPY ASSESSMENT/PLAN: 1. Inadequately controlled diabetes mellitus (HCC) - ICD9: 250.00, ICD10: E11.65 (primary diagnosis) A1c goal < 8% though should aim for <7% given age; controlled (last A1c 6%) though recent Bgs significantly elevated for unknown reason (possibly related to liver issue?); + sx hyperglycemia; reviewing nutrition labels though not looking at total carbs; will increase insulin today, focus on lifestyle mods, order CGM, and have close f/up to discuss starting GLP1 agonist which would benefit liver and help with weight loss INCREASE Levemir to 28 units once daily (will switch to Basaglar once out of Levemir supply since 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) INCREASE insulin lispro to 5 units and add SSI#1 with meals Continue metformin 500mg TIDCC; will consider further dose increase, may need to switch to ER formulation if tolerability is an issue Diabetic Education given re: Importance of foot care; advised to monitor feet daily, wear shoes Review nutrition labels; complex vs simple carbs; aim for <30-45g carbs/meal; eat more whole foods; add more veggies and lean protein; cut out cereal, instead eat eggs with 1-2 slices whole grain toast for breakfast Will send [facility] msg with some nutritional info to review Increase exercise/walking with dog, eventual goal of 150 mins moderate intensity exercise per week If BG very elevated, drink water, exercise, and minimize/avoid carb intake Dexcom G7 CGM ordered --> encouraged learning/observing how different foods impact BG - DEXCOM G7 ADJUNCT FACULTY - DEXCOM G7 SENSOR DEVICE - PEN NEEDLE, DIABETIC 32 GAUGE X /32 - METFORMIN 500 MG TABLET - INSULIN LISPRO (U-100) 100 UNIT/ML SUBCUTANEOUS PEN 2. Medication management - ICD9: V58.69, ICD10: Z79.899 Reviewed all medications, indications, dosing, frequency, administration with patient. Medication list updated as described above. Follow-up Patient is scheduled to see PCP team on 03/22. Patient to have f/up with PharmD team on 04/04. Patient verbalized understanding of instructions. Torrie Howard, Unique, [facility] Primary Care Clinical Pharmacist The majority of the pharmacy visit (> 50%) was spent counseling and/or coordinating care for the patient. interaction: virtual time was 60 minutes. documented in this encounter [facility] 02-27-2023 Hospital Discharg e instructions Additional Instructions You were given an additional 10 units of insulin and IV fluids to bring down your blood sugars. Please monitor and give additional insulin as needed. Be cautious and check sugars frequently. Follow-up with your PCP this week. [facility] Work Phone: 01-19-2023 History of Presen t illness Narrative Images from the original note [...] compliance to regimen Has followup with Dr Brown : who will try to improve your [...] ICD9: 571.8, ICD10: K76.0 Followup with hepatology Paul Rojas MD Current Medications: Current Outpatient Medications Medication [...] glucose test once daily, Insulin Dep? No cyrtb-7j-qwa-epa-fish oil (OMEGA-3 FISH OIL) 300-1,000 mg cap [...] Cholesterol (mg/dL) Date Value 02/23/2022 158 (H) Paul Rojas MD documented in this encounter [facility] 01-03-2023 Miscellaneous Notes Pharmacy electronically requests the following refill(s) Last ov 11/24/22 Future 04/21/23 Requested Prescriptions Pending Prescriptions Disp Refills insulin lispro (ADMELOG SOLOSTAR U-100 INSULIN) 100 unit/mL 12 mL 2 Sig: Inject 4 Units subcutaneously three times a day before meals. Violeta Beltran LPN documented in this encounter [facility] 12-14-2022 History of Presen t illness Narrative 1. Type 2 diabetes mellitus without retinopathy (HCC) Risk of diabetic changes and vision loss can be minimized by tight control of blood sugar, blood pressure, and cholesterol levels. Educated patient to continue care with primary care doctor and/or paleobotanist to maintain optimum levels as they are [...] Cervantes, VIELKA December 14, 2022 10:02 AM documented in this encounter [facility] 12-14-2022 Instructions Abigail Cervantes, OD - 12/14/2022 10:00 AM EST Use Systane Complete or Refresh Relieva 2-3 times daily or as needed documented in this encounter [facility] 12-10-2022 Miscellaneous Notes December 13, 2022 PID: [id number] Isai Graham [address] [place] [id number] Dear Ms. Graham, We are pleased to [...] report will be kept on file at [facility] as part of your permanent medical record and are available for your continuing care. Thank you for allowing us to help in meeting your health care needs. Sincerely, Dr. Holliday Interpreting Radiologist [facility] (Normal over 40) documented in this encounter [facility] 12-09-2022 History of Presen t illness Narrative Radiology Service Progress Note PATIENT [...] PERIPHERAL IV DATA: Not applicable SIGNED BY: Beth Burnett [employer] December 09, 2022 8:51 AM documented in this encounter [facility] 11-24-2022 Instructions Gunnar Guthrie MD - 11/24/2022 1:[address] Brown - Endocrine Weight Management documented in this encounter [facility] 11-24-2022 History of Presen t illness Narrative Isai Graham is a 52 year old presenting for [facility] follow up. Previously a patient [...] for her mom. 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 - [facility] SCREENING; Future Larisa Oseguera, 4 TEACHING PHYSICIAN NOTE OF PERSONAL INVOLVEMENT IN [...] Avila (and before that Dr. Trevizo at [facility]) and is new to me. No concerns today. Feels estradiol and finasteride is working well for her gender care. Has been postponing liver Bx - has been apprehensive about this procedure. She continues to work on weight loss. Is open to Endo Weight Management. Stws she is adherent to insulin. Declines vaccines today. Sts she has been on GAHT since 7588-1091. BP 117/78 Pulse 63 Resp 16 Wt 113.4 kg (250 lb) BMI 39.16 kg/m General: Alert in NAD Head: NCAT Eyes: EOMI, no conjunctivitis. Oropharynx: MMM, OP clear Neck: Supple w/o goiter or LAD. Heart: RRR S1 S2 No murmurs. Lungs: Normal chest rise, air exchange. CTAB. No adventitious sounds. Extremities: Warm and well perfused. No peripheral edema. 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 Normal gait, station. Skin: No visible [...] inter-professional approach to weight management at the [facility]. The patient is amenable to a referral to Endocrine Weight Management. #GHM She declined all vaccines today. Mammogram ordered. FU in 3-6 months with new PCP. Medical Decision Making: Problems: Moderate: 2+ stable chronic illnesses Data: Unique test result(s) reviewed: 3+ Unique test(s) ordered: 3+ Risk: Moderate: Drug management and Moderate risk from testing/treatment Medical Decision Making Level: 4 - Moderate Gunnra Guthrie MD, MPH Director - [facility] [employer] Program[employer] - Transgender Surgery and Medicine Program [facility] Internal Medicine [facility] Geriatric[facility] He/Him/They/Them documented in this encounter [facility] 09-15-2022 Miscellaneous Notes Items addressed in [...] phone pharmacy and notify patient. Latoya Avila APRN.VOCAL PERFORMER Per pharmacy medication is ready for pharmacy picking tech. Pt aware and please send [facility] Violeta Beltran LPN Patient calling in stating that they just got off phone with [facility] stating they cannot pharmacy picking tech Lisinopril for a couple days still and patient states that they have been out. Patient states they also need pen needles for their insulin. Contact Information [phone] Thank you documented in this encounter [facility] 09-15-2022 Miscellaneous Notes Items addressed in [...] phone pharmacy and notify patient. Latoya Avila APRN.VOCAL PERFORMER Pharmacy electronically requests the following refill(s) Last vv 07/14/22 No future appt Requested Prescriptions Pending Prescriptions Disp Refills alcohol swabs 200 Each 5 Sig: Use with blood glucose test once daily. Insulin Dep? No Violeta Beltran LPN documented in this encounter [facility] 09-10-2022 History of Presen t illness Narrative Ordered. Latoya Avila APRN.DEYA Care Gap Reviewed: Colorectal Cancer Screening Outreach Outcome/Action: Spoke to patient / parent / legal guardian: No action required (information or reminder only) PT requested new order to be placed since this order is expiring on 09/28/22 - Pt threw out last kit. Violeta Beltran LPN documented in this encounter [facility] 07-14-2022 History of Presen t illness Narrative VIRTUAL VISIT PROGRESS NOTE This is a virtual visit using [employer] video visit. It required patient-provider interaction for the medical decision making as documented below. I have communicated my name and active licensure. The patient's identity and physical location were verified at the time of this visit. Either the patient or their legal security systems sales representative has been informed of the risks and benefits of -- and alternatives to -- treatment through a remote evaluation and consents to proceed with the evaluation remotely. Isai Graham is a 52 year old adult seen for follow up. 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 USE DIRECTED. oursg-6v-mnd-epa-fish oil (OMEGA-3 FISH OIL) 300-1,000 mg cap [...] completed as advised by hepatology - discussed snf complications/prognosis of hepatic steatosis Medical Decision Making: Problems: Moderate: 1+ chronic illnesses with change and 2+ stable chronic illnesses Data: Unique test(s) ordered: 3+ Risk: Moderate: Moderate risk from testing/treatment and Drug management Medical Decision Making Level: 4 - Moderate Latoya Avila APRN.CNP documented in this encounter [facility] 05-14-2022 Discharge summary Note Date/Time May 14, 2022 3:35pm [facility] Medical Records Department [address] [place] [address] Emergency Department Summary 05/14/22 MR#: [id number] Acct: [id number] Name: ISAI GRAHAM Rep #:[id number] : 1970 52 From: Sanjana Rosa PCP: LATOYA AVILA Status:REG ER Location: ED HPI HPI - GI History of Present Illness Chief Complaint: Diarrhea Narrative Narrative: Patient is a 52-year-old female presenting with diarrhea. Patient states she ishaving having ongoing diarrhea for the past month. She denies any black or blood in her stool but states that she does have some mild bleeding with wiping. He states he is having 7-8 bowel movements a day. She states every once a while she will get a cramping pain in her right flank prior to a bowel movement. Has not found any aggravating or alleviating factors. Denies any recent antibiotics, hospitalization or known exposure/history of C. difficile. Denies any fevers, night sweats or weight changes. Has never had a colonoscopy. States she is following with GI through [facility]. She was actually supposed to have a liver biopsy on March 05 but had a panic attack right before it and left. She has not followed up since. Patient is no other complaints at this time. [facility] Medical History Chondromalacia of right patella Fatty liver Hypertension Type 2 diabetes mellitus Home Medications estradiol 2 mg tablet 2 mg PO BID 04/08/20 [History Last Taken Unknown] finasteride 5 mg tablet 5 mg PO DAILY 04/08/20 [History Last Taken Unknown] lisinopril 10 mg tablet 10 mg PO DAILY 04/08/20 [History Last Taken Unknown] dulaglutide 0.75 mg/0.5 mL subcutaneous pen injector (Trulicity) 0.75 mg (0.5 mL) subcut QWEEK #2 mL 08/27/21 [Rx Last Taken Unknown] insulin detemir U-100 100 unit/mL (3 mL) subcutaneous pen (Levemir FlexTouch U-100 Insulin) 40 unit (0.4 mL) subcut QHS #36 mL 08/27/21 [Rx Last Taken Unknown] metformin 500 mg tablet 1,000 mg PO BID #360 tabs 08/27/21 [Rx Last Taken Unknown] milk thistle 175 mg tablet 175 mg PO BID 08/27/21 [History Last Taken Unknown] pen needle, diabetic 32 gauge x 5/32 (Re[employer]-Fine [place] Pen Needle) #100 ea 08/27/21 [Rx Last Taken Unknown] meloxicam 15 mg tablet 15 mg PO DAILY Pain #30 tabs 11/26/21 [Rx Last Taken Unknown] rosuvastatin 5 mg tablet 5 mg PO DAILY 11/26/21 [History Last Taken Unknown] apixaban 5 mg tablet (Eliquis) 5 mg PO BID 05/14/22 [History Last Taken Unknown] Allergy/AdvReac Type Severity Reaction Status Date / Time Penicillins Allergy Unknown Verified 05/14/22 12:04 atorvastatin AdvReac Severe myalgia Verified 05/14/22 12:04 Family History Other CVA (cerebral vascular accident) Diabetes Hypertension Social History Smoking Status: Former smoker alcohol intake: current alcohol intake frequency: 0-2 drinks per day substance use type: does not use what type of physical activity do you participate in: walking, swimming and other ROS ROS ED Constitutional Constitutional ED: Denies chills, fever(s), sweats or weight loss ENT ENT ED: Denies sore throat Cardiovascular Cardiovascular: Denies chest pain Respiratory/Chest Respiratory/Chest: Denies cough Gastrointestinal Gastrointestinal: Reports abdominal pain and diarrhea; Denies melena, nausea or vomiting Genitourinary Genitourinary ED: Denies dysuria or hematuria Musculoskeletal Musculoskeletal: Denies arthralgias or myalgias Integumentary Denies rash Neurologic Neurologic: Denies headache(s), paresthesias or weakness Psychiatric Psychiatric: Reports anxiety; Denies depression Hematologic/Lymphatic Hematologic/Lymphatic: Reports easy bleeding and easy bruising EXAM Physical Exam Const Vital Signs: 05/14/22 12:02 Temperature 96.3 F L Temperature Source Temporal Pulse Rate 73 Respiratory Rate 18 Blood Pressure 127/80 H Blood Pressure Mean 95 Pulse Ox 98 Oxygen Delivery Method Room Air Positive well nourished, well developed and obese General Appearance ED: well developed and NAD; Negative for pallor Nutritional Appearance: obese HEENT Reports moist mucous membranes normocephalic and atraumatic Eyes PERRL and EOMs intact bilaterally Neck supple Resp normal respiratory effort and clear to auscultation bilaterally Cardio regular rate, regular rhythm and no murmurs GI non-tender and non-distended Auscultation: normoactive bowel sounds Palpation: soft; Negative for guarding or rigid Extremity full ROM Psych mental status grossly normal and thought process normal Skin no wounds General Skin Exam: Negative for jaundice or pallor MDM MDM MDM Narrative Medical decision making narrative: Patient is evaluated for diarrhea for the past month. She appears nontoxic. Abdominal exam is pretty benign. CBC largely normal with no leukocytosis with normal hemoglobin of 14.3. Her CMP is remarkable for transaminitis with an AST of 142 and ALT of 298. This likely is consistent with her history of fatty liver. She has a normal BUN and creatinine and I have a low suspicion for associated GI bleed. She does not have any electrolyte abnormalities. Urinalysis is normal. She clinically does not appear dehydrated. Given her symptoms with this intermittent right flank pain I did obtain a CT of the abdomen and pelvis. This does show hepatomegaly and fatty infiltration of the liver as well as sigmoid diverticulosis but no other acute process. Given her lack of fever, leukocytosis and 1 month of symptoms have a lower suspicion for an acute colitis. We do not think she requires antibiotics. She is able to provide a stool study and this is sent off. Patient is instructed to take Pepto-Bismol in the meantime. She be contacted if her stool study comes back positive. She is agreeable this plan of care. She is encouraged to follow-up with her GI doctor through [facility] as she will likely benefit from thatliver biopsy and a colonoscopy. She states she will message her today. Patientand significant other agreeable with plan of care. Patient discharged home in stable condition. Lab Data Attestation: I reviewed the patient's lab results. Labs: Laboratory Results - last 24 hr 05/14/22 05/14/22 05/14/22 12:39 12:39 13:48 WBC 5.9 RBC 4.97 Hgb 14.3 Hct 43.2 MCV 86.9 MCH 28.8 MCHC 33.1 RDW Std Deviation 39.0 RDW Coeff of [place] 12.3 Plt Count 212 MPV 10.2 Immature Gran % (Auto) 0.300 Neut % (Auto) 61.9 Lymph % (Auto) 27.7 Gaston % (Auto) 7.5 Eos % (Auto) 1.9 Baso % (Auto) 0.7 Absolute Neuts (auto) 3.7 Absolute Lymphs (auto) 1.63 Nucleated RBC % 0 Sodium 137 Potassium 4.1 Chloride 106 Carbon Dioxide 23.0 Anion Gap 8 BUN 18 Creatinine 0.94 Estim Creat Clear Calc 83.99 Est GFR (MDRD) Af Amer 107 Est GFR (MDRD) Non-Af 88 BUN/Creatinine Ratio 19.1 Glucose 139 H Calcium 9.4 Magnesium 1.9 Total Bilirubin 0.30 AST 142 H ALT 298 H Alkaline Phosphatase 64 Total Protein 7.3 Albumin 3.4 Globulin 3.9 Albumin/Globulin Ratio 0.9 Lipase 218 Urine Color Yellow Urine Clarity Clear Urine pH 6.0 Ur Specific [place] 1.020 Urine Protein Negative Urine Glucose (UA) Normal Urine Ketones Negative Urine Occult Blood Negative Urine Nitrite Negative Urine Bilirubin Negative Urine Urobilinogen Normal Ur Leukocyte Esterase Negative Urine RBC 0 SEEN Urine WBC 0 SEEN Ur Squamous Epith Cells 0 SEEN Urine Bacteria 0 SEEN Urine Mucus 0 SEEN Radiography Diagnostic Testing: Clinical Impression(s) from Imaging Studies Abdomen/Pelvis CT 05/14/22 14:01 IMPRESSION: Hepatomegaly and fatty infiltration of the liver. Left renal cysts. Sigmoid diverticulosis. Electronically Signed: Charlie Brumfield MD at 14:41 EDT , Discharge Plan Triage Chief Complaint: Diarrhea ED Provider: Sanjana Rose Dx/Rx/DC Orders Clinical Impression: Diarrhea, Abnormal transaminases, Fatty liver Instructions: ED Diarrhea, Unknown Cause Prescriptions: No Action milk thistle 175 mg tablet 175 mg PO BID Rx Instructions: give with meal/snack Trulicity 0.75 mg/0.5 mL pen injector 0.75 mg subcut QWEEK Qty: 2 2RF Levemir FlexTouch U-100 Insuln 100 unit/mL (3 mL) insulin pen 40 unit subcut QHS Qty: 36 1RF metformin 500 mg tablet 1,000 mg PO BID Qty: 360 1RF (DME) pen needle, diabetic [BD Ultra-Fine [place] Pen Needle] 32 gauge x 5/32 needle See Rx Instructions .Route Qty: 100 3RF Rx Instructions: daily rosuvastatin 5 mg tablet 5 mg PO DAILY meloxicam 15 mg tablet 15 mg PO DAILY Qty: 30 0RF Rx Instructions: Take once daily with food, do not take in conjunction with other NSAIDS. lisinopril 10 MG tablet 10 mg PO DAILY estradiol 2 MG tablet 2 mg PO BID finasteride 5 MG tablet 5 mg PO DAILY Eliquis 5 mg tablet 5 mg PO BID Label Comments: Take 1 tablet by mouth twice daily. Primary Care Provider: LATOYA AVILA Referrals: LATOYA AVILA [Other] Activity Restrictions/Additional Instructions: Follow-up with your GI doctor. Take Pepto-Bismol for diarrhea. Your stool has been sent off for studies. If something comes up positive and you need additional medications you will be contacted later today or tomorrow morning. If you not hear from us by tomorrow morning with your results please call back to the emergency room. Disposition Disposition: Home, Self Care What to do if you have Problems For any increased pain, shortness of breath, bleeding, nausea or vomiting, chest pain, or any unexpected problems, contact your Primary Care Provider. Call [facility] ([phone]) or report to the closest Emergency Room. Call 911 if necessary. 05/14/22 1544 <Electronically signed by Sanjana Rose DO> Cosigner Signature (if applicable): CC: LATOYA AVILA ~ Signed [facility] Work Phone: 1(771) 991-956104-04-2023 Miscellaneous Notes* Telephone Encounter - Shana Arellano MA - 05/11/2022 11:40 AM EDT Last appt 04/21/21 Next appt 06/04/22 Patient requests via [employer] refills as follows: Requested Prescriptions Pending Prescriptions Disp Refills insulin lispro (ADMELOG SOLOSTAR U-100 INSULIN) 100 unit/mL 12 mL 2 Sig: Inject 4 Units subcutaneously three times daily before meals. Please review and advise. Shana Arellano MA documented in this encounterBluff[facility] Hospital03-30-2023 Miscellaneous Notes* Telephone Encounter - Hayley Cardenas RN - 05/06/2022 5:21 PM EDT Refill requested 9 items, but they were sent to 4 different providers, combined them all into one encounter. documented in this encounterBluffton Hospital03-30-2023 Miscellaneous Notes* Telephone Encounter - Hayley Cardenas RN - 05/06/2022 5:14 PM EDT Patient has four different my chart refill requests, I pulled all meds to this one so they are refilled by same provider. Dr. Shine saw patient last, will route entire list to her for signature. Will cancel all other refill requests to avoid confusion. Last appt 04/21/[address] Shine Next appt 06/04/2022 with Kymberly. Patient phones [...] once daily, Insulin Dep? No Refused By: CASSIDY ZAMORA Reason for Refusal: Records indicate that there is a valid prescription at the pharmacy Please review and advise. Hayley Cardenas RN documented in this encounterBluffton Hospital03-15-2023 History of Present illness Narrative* Vadim Mack MD - 04/21/2022 9:28 AM EDT Outpatient Internal Medicine - [facility] Patient name: Isai Graham Medical Record: [id number] cc: Patient presents with: Follow Up 52 [...] glucose test once daily, Insulin Dep? No skzfz-8r-qlf-epa-fish oil (OMEGA-3 FISH OIL) 300-1,000 mg cap [...] Level: 3 - Low documented in this encounterBluffton Hospital02-28-2023 History of Present illness Narrative* Paige Bhatti PA-C - 04/06/2022 3:45 PM EST VIRTUAL VISIT FOLLOW UP I had a [...] loss, early satiety, bloating, dysphagia, odynophagia, change inbm. Remaining systems reviewed and are negative. Computed [...] test once daily, Insulin Dep? No 100 Strip5 mjaii-9a-vlt-epa-fish oil (OMEGA-3 FISH OIL) 300-1,000 mg cap [...] nausea, vomiting, or diarrhea : Not reviewed NEONATOLOGIST: Not reviewed PHYSICAL FINDINGS OF NOTE: General [...] which included preparing to see the patient, [id number] patient care, completing clinical documentation, obtaining and/or reviewing separately obtained history, performing a medically appropriate examination, counseling and educating the pat ient/family/caregiver, ordering medications, tests, or procedures, communicating with other HCPs (not separately reported), and independently interpreting results (not separately reported). Paige Bhatti PA-C April 06, 2022 4:14 PM documented in this encounterBluffton Hospital02-21-2023 Miscellaneous Notes* Telephone Encounter - JACINTA Friedman - 03/30/2022 4:48 PM EST Pre-procedure was discussed with patient and at some point patient left the recovery area unannounced before the start of procedure and will hopefully reschedule in the near future. JACINTA Ashley documented in this encounterBluffton Hospital02-21-2023 Nurse Note* Valeria Gomez RN - 03/30/2022 4:36 PM EST ABDOMINAL RADIOLOGY INTERVENTION NOTE PRE PROCEDURE DIAGNOSIS / REASON FOR INTERVENTION: hepatic steatosis PROCEDURE ( INCLUDING NEEDLES USED, NUMBER OF PASSES, OR CATHETER SIZE PLACED): TJL BX SEDATION / ANESTHESIA: N/A STAFF RADIOLOGIST: Dr. Min HISTORICAL RECORDS ADMINISTRATOR: Marcella Hernandez RA SPECIMENS : N/A POST [...] her own IV out. And she proceeded toleave. RN attempted to call the patient's cell phone with no answer. Valeria Gomez RN * Cyndee Wilson RN - 03/23/2022 4:23 PM EST Pre-procedure instructions: Contacted Isai and confirmed appt. for TJL Biopsy scheduled on March 30, at [facility]. I will wait while you get [...] be drawn prior to 03/30 at [facility]. If the labs are drawn same day as procedure, please report to J1-4 or S-15, 3 hours prior to procedure start time to ensure they are resulted by your scheduled start time. Arrival: Please bring your Photo ID and Insurance Card. A general consent may need to be signed. Arrival at 1:45pm to desk QB-1 ([facility] [place]) and check in for your procedure. Environmental Department Manager/Transportation: How will you be arriving for your procedure? Private car. If you will be arriving at [facility] via ambulance or public transportation, please call to discuss. You will need a responsible adult to accompany you to and from the procedure. Your straddle bug driver is required to stay with you until you are taken into the Procedure room. If you develop any of the following symptoms before your procedure, please call [phone]. Chills, joint pain, rash, sore throat, cough, [...] discuss. Written instructions provided to patient via [employer] If you have any questions please call [phone] documented in this encounterBluffton Hospital02-21-2023 Miscellaneous Notes* Patient Education - Valeria Gomez RN - 03/30/2022 4:13 PM EST AMBULATORY PATIENT EDUCATION TOPIC: Survival Skills: TJL [...] Department: HOSP MAIN [id number] documented in this encounterBluffton Hospital02-16-2023 History of Present illness Narrative* Anthony Aranda RT(R) - 03/25/2022 4:00 PM EST Radiology Service Progress Note PATIENT NAME: Isai Graham DATE OF SERVICE: March 25, 2022 TIME: 3:56 PM PATIENT IDENTITY VERIFICATION COMPLETED USING TWO (2) IDENTIFIERS: Name and Date of confirmedby patient verbally and Name and Date of [...] 25, 2022 3:56 PM documented in this encounterBluffton Hospital02-16-2023 History of Present illness Narrative* Paul Rojas V, MD - 03/25/2022 2:20 PM EST Images from the original note were not included. Referring Physician: Annette Quintana [id number] [facility] [id number] Quintana for an opinion regarding atrial flutter . My final recommendations will be communicated back to the requesting physician by way of shared Medical record or letter torequesting physician via [place] mail. Primary Care Physician: Latoya Avila APRN.DEYA Graham [...] when this was prescribed No history of MD or CAD dx; or chf Ex smoker [...] with long-term current use of insulin (HCC) -ICD9: 250.60, 357.2, V58.67, ICD10: E11.40, Z79.4 uncontrolled She has been referred to weight loss endo management to help 5. Hepatic steatosis - ICD9: 571.8, ICD10: K76.0 Agree with weigh tloss management Paul Rojas MD Current Medications: Current Outpatient Medications Medication [...] glucose test once daily, Insulin Dep? No enalv-7q-pwr-epa-fish oil (OMEGA-3 FISH OIL) 300-1,000 mg cap [...] right arm/repair Family Cardiac History: CAD / MD: yes: mother Do you need any refills [...] Cholesterol (mg/dL) Date Value 02/23/2022 158 (H) Paul Rojas MD documented in this encounterBluffton Hospital02-16-2023 Miscellaneous Notes* Telephone Encounter - Charmaine Calderon RN - 03/25/2022 8:00 AM EST Patient added to Dr. Rojas's schedule. * Telephone Encounter - Charmaine Calderon RN - 03/24/2022 3:50 PM EST Please add patient to Dr. Rojas's schedule 03/25/2022 at 2:20 for abnormal EKG. Patient is aware. documented in this encounterBluffton Hospital02-15-2023 History of Present illness Narrative* Annette Quintana MD - 03/24/2022 3:08 PM EST ESTABLISHED PATIENT Isai Graham is a 52 year old adult presenting for elevated glucose. HISTORY OF PRESENT ILLNESS Presents for uncontrolled DM. [facility] found A1c 9.3%. Pt's daily glucose check also indicated 300s. Pt was advised to see PCP today. Today pt denies any acute health complaints currently. Currently on metformin 500 mg BID and insulin detemir 22 units nightly. Pt was advised to increase metformin to 1000 mg BID and start lispro 4 units w/ meals. Advised to see endocrinology for furtherDM management. On physical exam, pt showed atrial flutter w/ irregular ventricular rhythm. EKG indicated Atrial flutter w/ variable AV block. After discussing w/ Dr. Rojas, Eliquis 5 mg BID and Carvedilol 25 mg BID were initiated. Pt is scheduled w/ Dr. Rojas for tomorrow. Pt has recent multiple health [...] glucose test once daily, Insulin Dep? No^Disp: 100Strip^Rfl: 5 wpomt-2x-wry-epa-fish oil (OMEGA-3 FISH OIL) 300-1,000 mg cap^Take 1 capsule by mouth once daily.^Disp: ^Rfl: estradiol (ESTRACE) 2 mg tablet^Take 1 tablet by mouth once daily.^Disp: 90 tablet^Rfl: 1 insulin detemir U-100 (LEVEMIR FLEXTOUCH U-100 INSULIN) 100 unit/mL (3 mL) injection pen^Inject 22 Units subcutaneously daily at bedtime.^Disp: 5 Each^Rfl: 0 lisinopril (ZESTRIL, PRINIVIL) 10 mg tablet^Take 1 tablet by mouth once daily.^Disp: 30 tablet^Rfl:5 finasteride (PROSCAR) 5 mg tablet^Take 1 tablet [...] 0 UNIFINE PENTIPS PLUS 32 gauge x 5/32^once daily. USE DIRECTED.^Disp: ^Rfl: metFORMIN (GLUCOPHAGE) 1,000 [...] C (97.6 F) (Temporal) Resp 14 Wt 110.2kg (243 lb) BMI 38.06 kg/m General Appearance: Well appearing, alert, in no acute distress, well-hydrated, well nourished. andObese. Eyes: Anicteric sclera. Pupils are equally round [...] neuropathy, with long-term current use of insulin ([facility]) Uncontrolled DM A1c 9.3% (previously 7.9%) - Increase metformin to 1000 mg BID - Start lispro 4 units w/ meals - Continue detemir 22 units nightly - f/u endocrinology - metFORMIN (GLUCOPHAGE) 1,000 mg tablet; Take 1 tablet by mouth twice daily. Dispense: 180 tablet;Refill: 1 - insulin lispro (ADMELOG SOLOSTAR U-100 INSULIN) 100 unit/mL; Inject 4 Units subcutaneously three times daily before meals. Dispense: 12 mL; Refill: 2 2. Atrial flutter, unspecified type (HCC) Incidental founding of atrial flutter w/ variable [...] QUINTANA MD PhD Staff Physician at the [facility] Department of Internal Medicine and Geriatrics documented in this encounterBluffton Hospital02-15-2023 Miscellaneous Notes* Telephone Encounter - Latoya Avila APRN.CNP - 03/24/2022 1:03 PM EST Agree that patient should have evaluation LAURENT. Increased levemir at last visit 03/05/22. Latoya Avila APRN.CNP * Telephone Encounter - Kathy Bryson RN - 03/24/2022 12:48 PM EST Balwinder CARRILLO from [facility] called with pt. concern while doing yearly wellness visit. Blood sugar is 483 presently, yesterday blood sugar 310 and 425, and Ben blood glucose was 237. Pt. with complaints in last couple weeks of increased urination. Scheduled with Dr. Quintana today at 1500 for evaluation. Thank you, Cyndi documented in this encounterBluffton Hospital02-02-2023 History of Present illness Narrative* Cleopatra Montaño RDMS - 03/11/2022 10:00 AM EST Radiology Service Progress Note PATIENT NAME: Isai Graham DATE OF SERVICE: March 11, 2022 TIME: 10:22 AM PATIENT IDENTITY VERIFICATION COMPLETED USING TWO (2) IDENTIFIERS: Name and Date of confirmedby patient verbally. FALL SCREENING: Has the patient [...] 11, 2022 10:22 AM documented in this encounterBluffton Hospital02-02-2023 Miscellaneous Notes* Telephone Encounter - Paige Bhatti PA-C - 03/11/2022 9:53 AM EST Left voicemail for patient to discuss lab results, did not leave detailed voicemail but did leave call back number. If she returns my call, recommend transjugular liver biopsy and repeat labs to screen for hereditary hemochromatosis and autoimmune hepatitis. Biopsy has been ordered and she can call Ir to schedule,recommend follow up with me ~10 days afterward, can be virtual. documented in this encounterBluffton Hospital01-27-2023 History of Present illness Narrative* Paige Bhatti PA-C - 03/05/2022 12:47 PM EST Patient fasting for 3 hours:Yes Any implanted devices:No Possibility of :No Fibroscan was performed on March 05, 2022, by Tiffany Morales and results are interpreted by Paige Bhatti PA-C Diagnosis: Fatty liver Please refer to [...] 46% chance of stage 4 fibrosis (cirrhosis). Paige Bhatti PA-C NAFLD Fibroscan Fibrosis Risk <7 kPA [...] Int J Clin Exp Med. 2015 Nov 15;8(10):49257-74.PMID: 25564995; PMCID: [id number]. Ever Paulino, Jaime GODINEZ, Marcelo M, Renny F, Ad J, Melita O, Otis F, Richard M, Liz G, Jewell A, Gavin E, Peggy L, Say G, Kary A, Nina U, Adelina S, Fany, Susan V, Vargas V, Genevieve M, Master LARRY. Refining the Baveno elastography criteria for the definition of compensated advanced chronic liver disease. J Hepatol. 2020;74(5):1251-9166. doi: 10.1016/j.jhep.2020.11.050. Epub 2019Jan 15. PMID: 25510956. documented in this encounterBluffton Hospital01-27-2023 Instructions* Patient Instructions* Paige Bhatti PA-C - 03/05/2022 11:52 AM EST Add on fibroscan today to stage fatty liver May consider another liver ultrasound, depending on fibroscan results Continue to work on weight loss Mediterranean diet Increased aerobic exercise with goal >45 minutes 5 days weekly Call with any questions at [phone] documented in this encounterBluffton Hospital01-27-2023 History of Present illness Narrative* Paige Bhatti PA-C - 03/05/2022 11:35 AM EST NAME: Isai Graham CLINIC NO: [id number] REFERRING PHYSICIAN: Mariia Thompson PRESENTING COMPLAINT: Patient presents with: Established [...] loss, early satiety, bloating, dysphagia, odynophagia, change inbm. Remaining systems reviewed and are negative. REVIEW [...] Current Outpatient Medications Medication Sig Dispense Refill hhdwk-4h-zaw-epa-fish oil (OMEGA-3 FISH OIL) 300-1,000 mg cap [...] test once daily, Insulin Dep? No 100 Strip5 Lancets lancets Use with blood glucose test [...] in no acute distress, well-hydrated, well nourished. andObese Eyes: PERRLA, conjunctiva and sclera normal Oropharynx: [...] not found in the last year. Imaging: RUQ Ultrasound: 05/14/21: IMPRESSION: Findings are suggestive of hepatic steatosis, unchanged compared to prior study. 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 Unclear if transaminases are elevated from fatty liver vs drug induced liver injury vs other liver process (AIH?). Discussed need for further testing as below. Reviewed pathophysiology of fatty liver, along wit h risk of progression to cirrhosis and signs [...] SERUM - HEPATITIS A ANTIBODY, IGG - LUIS-ZAMAN VCA IGM - CMV IGM AB 2. [...] SERUM - HEPATITIS A ANTIBODY, IGG - LUIS-ZAMAN VCA IGM - CMV IGM AB Follow up in 6 months, sooner if needed, pending today's workup. Please contact sooner if you have questions or problems develop. I spent a total of 40 minutes on the date of the service which included preparing to see the patient, gqvi-bg-ugmy patient care, completing clinical documentation, obtaining and/or reviewing separately obtained history, performing a medically appropriate examination, counseling and educating the pat ient/family/caregiver, ordering medications, tests, or procedures, communicating with other HCPs (not separately reported), and independently interpreting results (not separately reported). Paige Bhatti PA-C March 05, 2022 12:34 PM documented in this encounterBluffton Hospital01-27-2023 Instructions* Patient Instructions* Latoya Avila APRN.CNP - 03/05/2022 9:57 AM EST Recommend for [...] weight management Please schedule visit with preventive print producer for management of your high cholesterol Recommend to follow healthy, balanced diet Recommend at least 30 minutes of moderate intensity exercise most days of the week Please schedule your diabetic eye exam documented in this encounterBluffton Hospital01-27-2023 History of Present illness Narrative* Latoya Avila APRN.CNP - 03/05/2022 9:24 AM EST This note was created using [employer]PEO!ter. Subjective Isai Graham is a 51 year old adult presenting for [facility] surveillance. Patient has appointment with GI today to discuss worsening liver function Denies ETOH Taking supplements: [place]-3 fish oil and Milk thistle Denies acetaminophen [...] headache, chest pain, palpitations, dyspnea, and peripheral edema.Patient denies any side effects of her medication(s) [...] Abs Lymph 1.00 - 4.00 k/uL 1.67 Gaston% % 7.5 Abs Gaston <0.87 k/uL 0.33 Eosin% % 4.3 Abs [...] on File Prior to Visit Medication Sig glklu-2q-hpd-epa-fish oil (OMEGA-3 FISH OIL) 300-1,000 mg cap [...] daily and finasteride and 5mg PO daily) asestradiol level in target goal range and testosterone [...] arise. - Discussed diabetic education issues of assistant terminal manager diabetic complications, hypoglycemic symptoms, hyperglycemic symptoms, diet, [...] with patient, and I recommended no further interventionat this time. - DEPRESSION SCREENING/ASSESSMENT Follow up [...] Making Level: 4 - Moderate Latoya Avila APRN.VOCAL PERFORMER documented in this encounterBluffton Hospital01-06-2023 Miscellaneous Notes* Telephone Encounter - Violeta Beltran LPN - 02/12/2022 9:04 AM EST Pt notified. Violeta Beltran LPN * Telephone Encounter - Manpreet Taylor PA-C - 02/11/2022 12:50 PM EST Please remind patient to have fasting labs done before appointment with PCP on 03/05 * Telephone Encounter - Maritza Deras MA - 02/11/2022 9:21 AM EST Last appointment within department: 09/01/2021 Next appointment with department: 03/05/2022 Pharmacy escripts requesting the following refill: Requested Prescriptions Pending Prescriptions Disp Refills estradiol (ESTRACE) 2 mg tablet [Pharmacy Med Name: estradiol 2 mg tablet] 45 tablet 2 Sig: Take 1 AND 0.5 tablets by mouth every evening. Please review and advise. MI Esquivel documented in this encounterBluffton Hospital01-05-2023 Miscellaneous Notes* Telephone Encounter - Maritza Deras MA - 02/11/2022 9:48 AM EST Last appointment within department: 09/01/2021 Next appointment [...] and advise. MI Esquivel [facility] Miscellaneous Notes* Telephone Encounter - Violeta Beltran LPN - 11/30/2021 2:14 PM EDT Received communication that cologuard has not been completed. MCM sent to pt Violeta Beltran LPN documented [facility] this [facility] Miscellaneous Notes* Telephone Encounter - Shweta Zavala [facility] - 11/12/2021 9:57 AM EDTSummary: Fractyl Research Study Study #: [id number] Protocol Title: Fractyl-Revita T2Di Pivotal Study Principal Inv.: Andrei Shirley Study Coord.: Shweta Zavala Sponsor: [employer] Left a message inquiring if the patient was interested in participating in the Fractyl research study. I provided the patient with my contact information. documented in this [facility]10-04-2022 Miscellaneous Notes* Telephone Encounter - Shweta Zavala [facility] - 11/10/2021 12:38 PM EDTSummary: Fractyl Research Study #: [id number] Protocol Title: Fractyl-Revita T2Di Pivotal Study Principal Inv.: Andrei Shirley Study Coord.: Shweta Zavala Sponsor: [employer] Called patient to inquire about the Fractyl study. I believe the patient hung up the phone before Iwas able to speak. documented in this [facility]08-22-2022 Miscellaneous Notes* Telephone Encounter - Latoya Avila APRN.CNP - 09/28/2021 4:14 PM EDT Cologuard reordered. Latoya Avila APRN.CNP * Telephone Encounter - Violeta Beltran LPN - 09/28/2021 3:35 PM EDT Spoke with pt and states she has been so busy but she needs to get this done. Please place new order for cologuard as we have received notification that the order has . Violeta Beltran LPN [facility] Miscellaneous Notes* Addendum Note - Latoya Avila APRN.CNP - 09/07/2021 1:04 PM EDT Addended by: LATOYA AVILA on: 09/07/2021 01:04 PM Modules accepted: Orders * Telephone Encounter - Latoya Avila APRN.CNP - 09/07/2021 1:02 PM EDT Signed Prescriptions Disp Refills rosuvastatin (CRESTOR) 5 mg tablet 30 tablet 0 Sig: Take 1 tablet by mouth daily at bedtime. Latoya Avila APRN.CNP documented in this encounterBluff[facility]07-05-2022 Miscellaneous Notes* Telephone Encounter - Violeta Beltran LPN - 08/11/2021 12:49 PM EDT PT only takes 2mg daily Pharmacy electronically requests the following refill(s) Pending Prescriptions Disp Refills ESTRADIOL 2 MG TABLET 90 tablet 1 Sig: Take 1 tablet by mouth daily at bedtime. JOHN: No Violeta Beltran LPN * Telephone Encounter - Gunnar Guthrie MD - 08/11/2021 11:34 AM EDT Pls clarify dose with pt. Unclear to me if she takes 1 tab vs 1 tab AM and 0.5 tab PM. Thank you! * Telephone Encounter - Kwan Chaidez MA - 08/11/2021 11:19 AM EDT Pharmacy electronically requests the following refill(s) Pending Prescriptions Disp Refills ESTRADIOL 2 MG TABLET 45 tablet 2 Sig: Take 1 tablet by mouth AND half a tablet every evening. JOHN: Yes Kwan Chaidez MA documented in this encounterBluff[facility]05-17-2022 Miscellaneous Notes* Telephone Encounter - Bettina Blanchard MA - 06/23/2021 4:36 PM EDT I called and spoke with patient. She is OK with our office sending requested information. Faxed to below number. * Telephone Encounter - Eloise Browne - 06/23/2021 4:04 PM EDT Jp calling from [facility] in [place] regarding referral that was sent over to them. Jp is requesting office notes and most recent lab notes faxed over to them. Jp states they also need patient's demographic information sent over to them. Phone number, address, emergency contact information. Callback: [phone] Thank you documented in this encounterBluffton Hospital05-12-2022 Miscellaneous Notes* Telephone Encounter - Sonya Riley MA - 06/18/2021 4:53 PM EDT Referral faxed over to Dr. Morales's office at [phone]. * Telephone Encounter - Manpreet Taylor PA-C - 06/18/2021 4:35 PM EDT Consult to requested outside paleobotanist placed and given to clinical team to fax to consultingprovider's office. Manpreet Taylor PA-C, AAHIVS (he/him) documented in this encounterBluffton Hospital04-08-2022 Miscellaneous Notes* Telephone Encounter - Stephanie Gonzalez MA - 05/15/2021 10:01 AM EDT Patient informed. * Telephone Encounter - Latoya Avila APRN.CNP - 05/15/2021 9:51 AM EDT Please call patient. Please let patient know that her ultrasound showed fatty liver disease and wasstable from her previous ultrasound. Recommend for patient to see a field liability generalist for further evaluation of her worsening liver function tests. Patient can see any field liability generalist that she would like, but can offer recommendation of Dr. Mariia Thompson. Latoya Avila APRN.DEYA documented in this encounterBluffton Hospital04-04-2022 Miscellaneous Notes* Telephone Encounter - Violeta Beltran LPN - 05/11/2021 3:47 PM EDT Notified pt. Violeta Beltran LPN * Telephone Encounter - Latoya Avila APRN.CNP - 05/11/2021 3:32 PM EDT Noted. Signed. Latoya Avila APRN.CNP * Telephone Encounter - Violeta Beltran LPN - 05/11/2021 3:23 PM EDT Magy with lab states the order just needs to be signed. If its not letting you she says I can call her on her cell. Magy Violeta Beltran LPN * Telephone Encounter - Latoya Avila APRN.CNP - 05/11/2021 12:[address] to [address] the order but unable to file it. Please call lab to see what the next step is. Latoya Avila APRN.CNP * Telephone Encounter - Savana Conley Pss - 05/11/2021 11:52 AM EDT Patient calling in stating that she needs a new order to please be placed for Urinalysis with Microscopic. She went to have it down at [place] location and was unable to provide the urine sample, shewas told to come back. When she went back the order was gone and they said they need a new order placed. Please call patient back at [phone] once order is placed. Thank you documented in this encounterBluffton Hospital04-01-2022 History of Present illness Narrative* Latoya Avila APRN.CNP - 05/08/2021 1:47 PM EDT VIRTUAL VISIT PROGRESS NOTE This is a virtual visit using [employer] video visit. It required patient-provider interaction for themedical decision making as documented below. Isai Graham is a 51 year old adult seen for [facility] surveillance. Planning to get repeat [...] Abs Lymph 1.00 - 4.00 k/uL 1.17 Gaston% % 10.0 Abs Gaston <0.87 k/uL 0.46 Eosin% % 2.8 Abs [...] mouth every evening AND 0.5 tablets every evening.(Patient taking differently: Take 1 tablet by mouth [...] testosterone well suppressed and estradiol in target goalrange FU in 3 months for gender affirmation [...] Moderate Latoya Avila APRN.CNP documented in this encounterBluffton Hospital03-31-2022 Miscellaneous Notes* Telephone Encounter - Kathy Bryson RN - 05/07/2021 8:57 AM EDT Pt. notified and agreeable to below recommendations. Pt. states does not drink alcohol. Plans to get labs rechecked hopefully Tuesday because of work schedule. Kathy Bryson RN * Telephone Encounter - Bev Grimes - 05/06/2021 5:12 PM EDT Patient returned call for results and she wants to know if she should fast before repeating the labs. Please call patient back at [phone]. Bev Handy Pss * Telephone Encounter - Violeta Beltran LPN - 05/06/2021 5:06 PM EDT vm left for patient to return call to office and MCM sent as well. Violeta Beltran LPN * Telephone Encounter - Latoya Avila APRN.CNP - 05/06/2021 4:46 PM EDT Please call patient. Liver function tests and blood sugar were very high on recent blood test. Recommend to repeat blood work at patient's earliest convenience. Recommend avoidance of alcohol. Latoya Avila APRN.CNP documented in this encounterBluffton Hospital06-09-2020 History of Past illness Narrative* Problem Noted Date Resolved Date Prediabetes 07/17/2019 05/13/2021 documented as of this encounter (statuses as of 05/15/2021) [address] History of Past illness Narrative* Problem Noted Date Resolved Date Prediabetes 07/17/2019 05/13/2021 documented as of this encounter (statuses as of 05/15/2021) [address] History of Past illness Narrative* Problem Noted Date Resolved Date Prediabetes 07/17/2019 05/13/2021 documented as of this encounter (statuses as of 06/18/2021) [address] History of Past illness Narrative* Problem Noted Date Resolved Date Prediabetes 07/17/2019 05/13/2021 documented as of this encounter (statuses as of 06/23/2021) [address] History of Past illness Narrative* Problem Noted Date Resolved Date Prediabetes 07/17/2019 05/13/2021 documented as of this encounter (statuses as of 08/11/2021) [address] History of Past illness Narrative* Problem Noted Date Resolved Date Prediabetes 07/17/2019 05/13/2021 Wnjk-hp-mqlrvk transgender person on hormone the rapy 08/23/2018 09/01/2021 documented as of this encounter (statuses as of 09/07/2021) [facility] Narrative* Problem Noted Date Resolved Date Prediabetes 07/17/2019 05/13/2021 Mtmk-ss-agkran transgender person on hormone the rapy 08/23/2018 09/01/2021 documented as of this encounter (statuses as of 09/28/2021) [address] History of Past illness Narrative* Problem Noted Date Resolved Date Prediabetes 07/17/2019 05/13/2021 Knap-xr-nkliwo transgender person on hormone the rapy 08/23/2018 09/01/2021 documented as of this encounter (statuses as of 10/13/2021) [address] History of Past illness Narrative* Problem Noted Date Resolved Date Prediabetes 07/17/2019 05/13/2021 Diqe-sd-ixdask transgender person on hormone the rapy 08/23/2018 09/01/2021 documented as of this encounter (statuses as of 10/13/2021) [facility]* Problem Noted Date Resolved Date Prediabetes 07/17/2019 05/13/2021 Wwsc-pk-vhvgbz transgender person on hormone the rapy 08/23/2018 09/01/2021 documented as of this encounter (statuses as of 11/10/2021) [facility] N[facility]ative* Problem Noted Date Resolved Date Prediabetes 07/17/2019 05/13/2021 Ypdv-qy-vlpvba transgender person on hormone the rapy 08/23/2018 09/01/2021 documented as of this encounter (statuses as of 11/12/2021) [facility]* Problem Noted Date Resolved Date Prediabetes 07/17/2019 05/13/2021 Uxwi-ci-fnkwsl transgender person on hormone the rapy 08/23/2018 09/01/2021 documented as of this encounter (statuses as of 11/30/2021) [address] History of Past illness Narrative* Problem Noted Date Resolved Date Prediabetes 07/17/2019 05/13/2021 Tgyg-wp-aqrire transgender person on hormone the rapy 08/23/2018 09/01/2021 documented as of this encounter (statuses as of 02/12/2022) [facility]* Problem Noted Date Resolved Date Prediabetes 07/17/2019 05/13/2021 Marn-kw-ndwxut transgender person on hormone the rapy 08/23/2018 09/01/2021 documented as of this encounter (statuses as of 02/12/2022) [facility]* Problem Noted Date Resolved Date Prediabetes 07/17/2019 05/13/2021 Jhmj-cn-zoderp transgender person on hormone the rapy 08/23/2018 09/01/2021 documented as of this encounter (statuses as of 03/05/2022) [facility]* Problem Noted Date Resolved Date Prediabetes 07/17/2019 05/13/2021 Gqaf-il-lqfgss transgender person on hormone the rapy 08/23/2018 09/01/2021 documented as of this encounter (statuses as of 03/05/2022) [address] History of Past illness Narrative* Problem Noted Date Resolved Date Prediabetes 07/17/2019 05/13/2021 Qkut-lu-hathhy transgender person on hormone the rapy 08/23/2018 09/01/2021 documented as of this encounter (statuses as of 03/05/2022) [facility]* Problem Noted Date Resolved Date Prediabetes 07/17/2019 05/13/2021 Pmmy-ee-kwjidn transgender person on hormone the rapy 08/23/2018 09/01/2021 documented as of this encounter (statuses as of 03/05/2022) [facility]* Problem Noted Date Resolved Date Prediabetes 07/17/2019 05/13/2021 Uigs-sr-hqhwyq transgender person on hormone the rapy 08/23/2018 09/01/2021 documented as of this encounter (statuses as of 03/05/2022) [address] History of Past illness Narrative* Problem Noted Date Resolved Date Prediabetes 07/17/2019 05/13/2021 Acxz-cp-dlwxuz transgender person on hormone the rapy 08/23/2018 09/01/2021 documented as of this encounter (statuses as of 03/05/2022) [facility]* Problem Noted Date Resolved Date Prediabetes 07/17/2019 05/13/2021 Uuui-us-wfycyf transgender person on hormone the rapy 08/23/2018 09/01/2021 documented as of this encounter (statuses as of 03/10/2022) [facility]* Problem Noted Date Resolved Date Prediabetes 07/17/2019 05/13/2021 Cyfw-ng-txtlag transgender person on hormone the rapy 08/23/2018 09/01/2021 documented as of this encounter (statuses as of 03/11/2022) [facility]* Problem Noted Date Resolved Date Prediabetes 07/17/2019 05/13/2021 Txkl-ub-huluym transgender person on hormone the rapy 08/23/2018 09/01/2021 documented as of this encounter (statuses as of 03/24/2022) [facility]* Problem Noted Date Resolved Date Prediabetes 07/17/2019 05/13/2021 Gjvk-qr-nnjkoq transgender person on hormone the rapy 08/23/2018 09/01/2021 documented as of this encounter (statuses as of 03/25/2022) [facility]* Problem Noted Date Resolved Date Prediabetes 07/17/2019 05/13/2021 Ajvm-wo-lhevao transgender person on hormone the rapy 08/23/2018 09/01/2021 documented as of this encounter (statuses as of 03/25/2022) [facility]* Problem Noted Date Resolved Date Prediabetes 07/17/2019 05/13/2021 Fzng-az-vpkjln transgender person on hormone the rapy 08/23/2018 09/01/2021 documented as of this encounter (statuses as of 03/25/2022) [facility]* Problem Noted Date Resolved Date Prediabetes 07/17/2019 05/13/2021 Pzxw-xe-gggkkw transgender person on hormone the rapy 08/23/2018 09/01/2021 documented as of this encounter (statuses as of 03/31/2022) [facility]* Problem Noted Date Resolved Date Prediabetes 07/17/2019 05/13/2021 Lhuf-sj-dblrce transgender person on hormone the rapy 08/23/2018 09/01/2021 documented as of this encounter (statuses as of 03/31/2022) [facility]* Problem Noted Date Resolved Date Prediabetes 07/17/2019 05/13/2021 Ovmm-wa-xturcu transgender person on hormone the rapy 08/23/2018 09/01/2021 documented as of this encounter (statuses as of 04/07/2022) [facility]* Problem Noted Date Resolved Date Prediabetes 07/17/2019 05/13/2021 Tvmu-ji-fmplqm transgender person on hormone the rapy 08/23/2018 09/01/2021 documented as of this encounter (statuses as of 04/21/2022) [facility]* Problem Noted Date Resolved Date Prediabetes 07/17/2019 05/13/2021 Qdsx-mp-lqzwxt transgender person on hormone the rapy 08/23/2018 09/01/2021 documented as of this encounter (statuses as of 05/07/2022) [facility]* Problem Noted Date Resolved Date Prediabetes 07/17/2019 05/13/2021 Jmkm-ap-blcxqg transgender person on hormone the rapy 08/23/2018 09/01/2021 documented as of this encounter (statuses as of 05/07/2022) [facility]* Problem Noted Date Resolved Date Prediabetes 07/17/2019 05/13/2021 Ggva-ms-zgcasf transgender person on hormone the rapy 08/23/2018 09/01/2021 documented as of this encounter (statuses as of 05/11/2022) [facility]* Problem Noted Date Resolved Date Prediabetes 07/17/2019 05/13/2021 Qtwe-qc-ekyeub transgender person on hormone the rapy 08/23/2018 09/01/2021 documented as of this encounter (statuses as of 05/12/2022) [facility]* Problem Noted Date Resolved Date Prediabetes 07/17/2019 05/13/2021 Opzf-vg-valkwg transgender person on hormone the rapy 08/23/2018 09/01/2021 documented as of this encounter (statuses as of 05/13/2022) [facility]* Problem Noted Date Resolved Date Prediabetes 07/17/2019 05/13/2021 Aqmd-wx-dfhhcm transgender person on hormone the rapy 08/23/2018 09/01/2021 documented as of this encounter (statuses as of 07/14/2022) [facility]* Problem Noted Date Resolved Date Prediabetes 07/17/2019 05/13/2021 Zzdv-uz-rtvvxu transgender person on hormone the rapy 08/23/2018 09/01/2021 documented as of this encounter (statuses as of 07/22/2022) [facility]* Problem Noted Date Diagnosed Date Resolved Date Prediabetes 07/17/2019 05/13/2021 Uxji-bs-anixat transgender p erson on hormone therapy 08/23/2018 09/01/2021 documented as of this encounter (statuses as of 09/10/2022) [facility]* Problem Noted Date Diagnosed Date Resolved Date Prediabetes 07/17/2019 05/13/2021 Xrli-zz-ozdnxl transgender p erson on hormone therapy 08/23/2018 09/01/2021 documented as of this encounter (statuses as of 09/15/2022) [facility]* Problem Noted Date Diagnosed Date Resolved Date Prediabetes 07/17/2019 05/13/2021 Rmob-my-bqklnf transgender p erson on hormone therapy 08/23/2018 09/01/2021 documented as of this encounter (statuses as of 09/16/2022) [facility]* Problem Noted Date Diagnosed Date Resolved Date Prediabetes 07/17/2019 05/13/2021 Cpbh-xa-xtolrv transgender p erson on hormone therapy 08/23/2018 09/01/2021 documented as of this encounter (statuses as of 11/25/2022) [facility]* Problem Noted Date Diagnosed Date Resolved Date Prediabetes 07/17/2019 05/13/2021 Zhdw-jv-wqcaaw transgender p erson on hormone therapy 08/23/2018 09/01/2021 documented as of this encounter (statuses as of 12/12/2022) [facility]* Problem Noted Date Diagnosed Date Resolved Date Prediabetes 07/17/2019 05/13/2021 Pxfx-ta-xpahuh transgender p erson on hormone therapy 08/23/2018 09/01/2021 documented as of this encounter (statuses as of 12/12/2022) [facility]* Problem Noted Date Diagnosed Date Resolved Date Prediabetes 07/17/2019 05/13/2021 Xozm-jd-uqonlk transgender p erson on hormone therapy 08/23/2018 09/01/2021 documented as of this encounter (statuses as of 12/14/2022) [facility]* Problem Noted Date Diagnosed Date Resolved Date Prediabetes 07/17/2019 05/13/2021 Hnpi-bj-nggfzl transgender p erson on hormone therapy 08/23/2018 09/01/2021 documented as of this encounter (statuses as of 12/14/2022) [facility]* Problem Noted Date Diagnosed Date Resolved Date Prediabetes 07/17/2019 05/13/2021 Mens-ds-jsssyd transgender p erson on hormone therapy 08/23/2018 09/01/2021 documented as of this encounter (statuses as of 12/15/2022) [facility]* Problem Noted Date Diagnosed Date Resolved Date Prediabetes 07/17/2019 05/13/2021 Vhbp-hk-eqrdwv transgender p erson on hormone therapy 08/23/2018 09/01/2021 documented as of this encounter (statuses as of 01/03/2023) [facility]* Problem Noted Date Diagnosed Date Resolved Date Prediabetes 07/17/2019 05/13/2021 Gcmz-vp-eeriju transgender p erson on hormone therapy 08/23/2018 09/01/2021 documented as of this encounter (statuses as of 01/20/2023) [facility]* Problem Noted Date Diagnosed Date Resolved Date Prediabetes 07/17/2019 05/13/2021 Upxu-ds-ghpvxu transgender p erson on hormone therapy 08/23/2018 09/01/2021 documented as of this encounter (statuses as of 03/17/2023) [facility]* Problem Noted Date Diagnosed Date Resolved Date Prediabetes 07/17/2019 05/13/2021 Fbsd-hn-mwoeuc transgender p erson on hormone therapy 08/23/2018 09/01/2021 documented as of this encounter (statuses as of 03/17/2023) [facility]* Problem Noted Date Diagnosed Date Resolved Date Prediabetes 07/17/2019 05/13/2021 Aygw-vy-czluyg transgender p erson on hormone therapy 08/23/2018 09/01/2021 documented as of this encounter (statuses as of 03/22/2023) [facility]* Problem Noted Date Diagnosed Date Resolved Date Prediabetes 07/17/2019 05/13/2021 Kiwa-qr-vhnydk transgender p erson on hormone therapy 08/23/2018 09/01/2021 documented as of this encounter (statuses as of 03/23/2023) [facility]* Problem Noted Date Diagnosed Date Resolved Date Prediabetes 07/17/2019 05/13/2021 Icgj-fp-hhvihp transgender p erson on hormone therapy 08/23/2018 09/01/2021 documented as of this encounter (statuses as of 04/04/2023) [facility]* Problem Noted Date Diagnosed Date Resolved Date Prediabetes 07/17/2019 05/13/2021 Enzj-sj-jqdayf transgender p erson on hormone therapy 08/23/2018 09/01/2021 documented as of this encounter (statuses as of 04/13/2023) [facility]* Problem Noted Date Diagnosed Date Resolved Date Prediabetes 07/17/2019 05/13/2021 Duty-ym-aaxqof transgender p erson on hormone therapy 08/23/2018 09/01/2021 documented as of this encounter (statuses as of 04/15/2023) [facility]* Problem Noted Date Diagnosed Date Resolved Date Prediabetes 07/17/2019 05/13/2021 Suna-qj-rfcsnj transgender p erson on hormone therapy 08/23/2018 09/01/2021 documented as of this encounter (statuses as of 05/13/2023) [facility]* Problem Noted Date Diagnosed Date Resolved Date Prediabetes 07/17/2019 05/13/2021 Fctb-ay-ibqatd transgender p erson on hormone therapy 08/23/2018 09/01/2021 documented as of this encounter (statuses as of 05/13/2023) [facility]* Problem Noted Date Diagnosed Date Resolved Date Prediabetes 07/17/2019 05/13/2021 Jipo-dt-kgmpci transgender p erson on hormone therapy 08/23/2018 09/01/2021 documented as of this encounter (statuses as of 05/16/2023) [facility]* Problem Noted Date Diagnosed Date Resolved Date Prediabetes 07/17/2019 05/13/2021 Paoo-fn-ixzcgb transgender p erson on hormone therapy 08/23/2018 09/01/2021 documented as of this encounter (statuses as of 05/24/2023) [facility] Diagnosis Prediabetes- Primary Other abnormal glucose Elevated LFTs Other abnormal blood chemistry documented [facility]* Diagnosis Gender dysphoria- Primary Gender identity disorder in children Encounter for long-term (current) use of high-risk medication Encounter for long-term (current) use of other medications Elevated LFTs Other abnormal blood chemistry Prediabetes Other abnormal glucose Leg cramping Cramp of limb Nocturia documented in this encounter [facility]* Diagnosis Nocturia- Primary [facility] Diagnosis Elevated LFTs Other abnormal blood chemistry documented in this encounter [facility] noteNo assessment information availableWD[facility] Work Phone: Evaluation note* Diagnosis Type 2 diabetes mellitus with hyperglycemia, without long-term current use of insulin (HCC)- Primary documented [facility] this encounter [facility]* Diagnosis Gender dysphoria Gender identity disorder in children Encounter for long-term (current) use of high-risk medication Encounter for long-term (current) use of other medications documented [facility] this [facility]* Diagnosis Mixed hyperlipidemia- Primary [facility] note* Diagnosis Colon cancer screening- Primary Special screening for malignant neoplasms, colon [facility] Gender dysphoria Gender identity disorder in children Encounter for long-term (current) use of high-risk medication Encounter for long-term (current) use of other medications [facility] Gender dysphoria Gender identity disorder in children Encounter for long-term (current) use of high-risk medication Encounter for long-term (current) use of other medications Primary hypertension Unspecified essential hypertension [facility] Diagnosis Gender dysphoria Gender identity disorder in children Encounter for long-term (current) use of high-risk medication Encounter for long-term (current) use of other medications Primary hypertension Unspecified essential hypertension [facility] Diagnosis Mixed hyperlipidemia- Primary Gender dysphoria Gender identity disorder in children Encounter for long-term (current) use of high-risk medication Encounter for long-term (current) use of other medications Type 2 diabetes mellitus with hyperglycemia, without long-term current use of insulin (HCC) [facility] Diagnosis Gender dysphoria- Primary Gender identity [...] Screening for depression [facility] Diagnosis Elevated liver enzymes- Primary Other nonspecific abnormal serum enzyme levels Hepatic steatosis Other chronic nonalcoholic liver disease [facility]* Diagnosis Hepatic steatosis- Primary Other chronic nonalcoholic liver disease Elevated liver enzymes Other nonspecific abnormal serum enzyme levels [facility]* Diagnosis Hepatic steatosis- Primary Other chronic nonalcoholic liver disease Elevated liver enzymes Other nonspecific abnormal serum enzyme levels Hepatic fibrosis Cirrhosis of liver without mention of alcohol [facility]* Diagnosis Elevated ferritin- Primary Other abnormal blood chemistry Elevated liver enzymes Other nonspecific abnormal serum enzyme levels [facility] Diagnosis Elevated liver enzymes- Primary Other nonspecific abnormal serum enzyme levels [facility] Diagnosis Hepatic steatosis- Primary Other chronic nonalcoholic liver disease Elevated liver enzymes Other nonspecific abnormal serum enzyme levels Positive HANK (antinuclear antibody) Other and unspecified nonspecific immunological findings [facility] Diagnosis Elevated liver enzymes- Primary Other nonspecific abnormal serum enzyme levels Elevated liver enzymes Other nonspecific abnormal serum enzyme levels [facility]* Diagnosis Type 2 diabetes mellitus with diabetic neuropathy, with long-term current use of insulin (HCC)- Primary Atrial flutter, unspecified type (HCC) Obesity, Class II, BMI 35-39.9 Obesity, unspecified Gonadal dysgenesis, 46, XY Gonadal dysgenesis Elevated liver enzymes Other nonspecific abnormal serum enzyme levels [facility]* Diagnosis Atrial flutter, unspecified type (HCC)- Primary Mixed hyperlipidemia Primary hypertension Unspecified essential hypertension Type 2 diabetes mellitus with diabetic neuropathy, with long-term current use of insulin (HCC) Hepatic steatosis Other chronic nonalcoholic liver disease Elevated liver enzymes Other nonspecific abnormal serum enzyme levels [facility]* Diagnosis Hepatic steatosis- Primary Other chronic nonalcoholic liver disease Elevated liver enzymes Other nonspecific abnormal serum enzyme levels Class 3 severe obesity due to excess calories without serious comorbidity in adult, unspecified BMI (HCC) HANK positive Other and unspecified nonspecific immunological findings [facility]* Diagnosis Type 2 diabetes mellitus with hyperglycemia, without long-term current use of insulin (HCC)- Primary Hepatic steatosis Other chronic nonalcoholic liver disease [facility]* Diagnosis Type 2 diabetes mellitus with diabetic neuropathy, with long-term current use of insulin (HCC) Atrial flutter, unspecified type (HCC) [facility]* Diagnosis Type 2 diabetes mellitus with [...] Unspecified essential hypertension [facility]* Diagnosis Type 2 diabetes mellitus with [...] of other medications [facility]* Diagnosis Type 2 diabetes mellitus with diabetic neuropathy, with long-term current use of insulin (HCC) [facility]* Diagnosis Primary hypertension Unspecified essential hypertension Gender dysphoria Gender identity disorder in children Encounter for long-term (current) use of high-risk medication Encounter for long-term (current) use of other medications [facility] Diagnosis Type 2 diabetes mellitus with diabetic neuropathy, with long-term current use of insulin (HCC)- Primary Gender dysphoria Gender identity disorder in children Encounter for long-term (current) use of high-risk medication Encounter for long-term (current) use of other medications Primary hypertension Unspecified essential hypertension Atrial flutter, unspecified type (HCC) Hepatic steatosis Other chronic nonalcoholic liver disease [facility]* Diagnosis Gender dysphoria Gender identity disorder in children Encounter for long-term (current) use of high-risk medication Encounter for long-term (current) use of other medications [facility]* Diagnosis Colon cancer screening- Primary Special screening for malignant neoplasms, colon [facility]* Diagnosis Type 2 diabetes mellitus with hyperglycemia, without long-term current use of insulin (HCC) [facility]* Diagnosis Type 2 diabetes mellitus with [...] Other screening mammogram [facility] Diagnosis Hepatic steatosis Other chronic nonalcoholic liver disease Elevated liver enzymes Other nonspecific abnormal serum enzyme levels Hepatic fibrosis Cirrhosis of liver without mention of alcohol [facility] Diagnosis Atrial flutter, unspecified type (HCC) [facility]* Diagnosis Encounter for screening mammogram for malignant neoplasm of breast Other screening mammogram [facility] Diagnosis Type 2 diabetes mellitus without retinopathy (HCC)- Primary Type II or unspecified type diabetes mellitus without mention of complication, not stated as uncontrolled Hypermetropia, bilateral Regular astigmatism of both eyes Regular astigmatism Presbyopia [facility]* Diagnosis Type 2 diabetes mellitus with diabetic neuropathy, with long-term current use of insulin (HCC) [facility]* Diagnosis Typical atrial flutter (HCC)- Primary Atrial flutter Mixed hyperlipidemia Primary hypertension Unspecified essential hypertension Type 2 diabetes mellitus with diabetic neuropathy, with long-term current use of insulin (HCC) Abnormal electrocardiogram Nonspecific abnormal electrocardiogram (ECG) (EKG) Fatty liver Other chronic nonalcoholic liver disease [facility]* Diagnosis Inadequately controlled diabetes mellitus (HCC)- Primary Type II or unspecified type diabetes mellitus without mention of complication, not stated as uncontrolled Medication management Encounter for long-term (current) use of other medications Type 2 diabetes mellitus with diabetic neuropathy, with long-term current use of insulin (HCC) [facility]* Diagnosis Type 2 diabetes mellitus with diabetic neuropathy, with long-term current use of insulin (HCC)- Primary Primary hypertension Unspecified essential hypertension Obesity, Class II, BMI 35-39.9 Obesity, unspecified Hepatic steatosis Other chronic nonalcoholic liver disease BMI 37.0-37.9, adult Body Mass Index 37.0-37.9, adult Mixed hyperlipidemia Typical atrial flutter (HCC) Atrial flutter Gender dysphoria Gender identity disorder in children BE (obstructive sleep apnea) Obstructive sleep apnea (adult) (pediatric) [facility]* Diagnosis Gender dysphoria Gender identity disorder in children Encounter for long-term (current) use of high-risk medication Encounter for long-term (current) use of other medications [facility]* Diagnosis Inadequately controlled diabetes mellitus (HCC)- Primary Type II or unspecified type diabetes mellitus without mention of complication, not stated as uncontrolled [facility] Diagnosis Type 2 diabetes mellitus with diabetic neuropathy, with long-term current use of insulin (HCC) [facility] Diagnosis Type 2 diabetes mellitus with diabetic neuropathy, with long-term current use of insulin (HCC) [facility] Diagnosis Primary hypertension Unspecified essential hypertension Gender dysphoria Gender identity disorder in children Encounter for long-term (current) use of high-risk medication Encounter for long-term (current) use of other medications Inadequately controlled diabetes mellitus (HCC) Type II or unspecified type diabetes mellitus without mention of complication, not stated as uncontrolled Type 2 diabetes mellitus with diabetic neuropathy, with long-term current use of insulin (HCC) [facility] Diagnosis Atrial flutter, unspecified type (HCC) [facility]* Diagnosis Type 2 diabetes mellitus with diabetic neuropathy, with long-term current use of insulin (HCC)- Primary Obesity, Class II, BMI 35-39.9 Obesity, unspecified Gender dysphoria Gender identity disorder in children Hepatic steatosis Other chronic nonalcoholic liver disease Primary hypertension Unspecified essential hypertension Mixed hyperlipidemia Typical atrial flutter (HCC) Atrial flutter BE (obstructive sleep apnea) Obstructive sleep apnea (adult) (pediatric) Medication management Encounter for long-term (current) use of other medications Dietary counseling Dietary surveillance and counseling Exercise counseling [facility]* Diagnosis Type 2 diabetes mellitus with diabetic neuropathy, with long-term current use of insulin (HCC)- Primary [facility]* Diagnosis Mixed hyperlipidemia- Primary [facility]* Diagnosis Gender dysphoria Gender identity disorder in children Encounter for long-term (current) use of high-risk medication Encounter for long-term (current) use of other medications Primary hypertension Unspecified essential hypertension Inadequately controlled diabetes mellitus (HCC) Type II or unspecified type diabetes mellitus without mention of complication, not stated as uncontrolled [facility] Diagnosis Inadequately controlled diabetes mellitus (HCC) Type II or unspecified type diabetes mellitus without mention of complication, not stated as uncontrolled Type 2 diabetes mellitus with diabetic neuropathy, with long-term current use of insulin (HCC) [facility]* Diagnosis Atrial flutter, unspecified type (HCC) [facility]* Diagnosis Mixed hyperlipidemia Type 2 diabetes mellitus with diabetic neuropathy, with long-term current use of insulin (HCC) [facility]* Diagnosis Gender dysphoria Gender identity disorder in children Encounter for long-term (current) use of high-risk medication Encounter for long-term (current) use of other medications [facility]* Diagnosis Type 2 diabetes mellitus with diabetic neuropathy, with long-term current use of insulin (HCC)- Primary [facility]* Diagnosis Inadequately controlled diabetes mellitus (HCC) Type II or unspecified type diabetes mellitus without mention of complication, not stated as uncontrolled [facility]* Diagnosis Gender dysphoria Gender identity disorder in children Encounter for long-term (current) use of high-risk medication Encounter for long-term (current) use of other medications [facility]* Diagnosis Type 2 diabetes mellitus with diabetic neuropathy, with long-term current use of insulin (HCC)- Primary [facility] Diagnosis Type 2 diabetes mellitus without retinopathy (HCC)- Primary Type II or unspecified type diabetes mellitus without mention of complication, not stated as uncontrolled Hypermetropia, bilateral Regular astigmatism of both eyes Regular astigmatism Presbyopia [facility]* Diagnosis Inadequately controlled diabetes mellitus (HCC) Type II or unspecified type diabetes mellitus without mention of complication, not stated as uncontrolled [facility]* Diagnosis Primary hypertension Unspecified essential hypertension Gender dysphoria Gender identity disorder in children Encounter for long-term (current) use of high-risk medication Encounter for long-term (current) use of other medications [facility] Diagnosis Type 2 diabetes mellitus with diabetic neuropathy, with long-term current use of insulin (HCC) [facility] Diagnosis Type 2 diabetes mellitus with hyperglycemia, without long-term current use of insulin (HCC) [facility] Diagnosis Primary hypertension Unspecified essential hypertension Gender dysphoria Gender identity disorder in children Encounter for long-term (current) use of high-risk medication Encounter for long-term (current) use of other medications Atrial flutter, unspecified type (HCC) [facility]* Diagnosis Gender dysphoria Gender identity disorder in children Encounter for long-term (current) use of high-risk medication Encounter for long-term (current) use of other medications [facility]* Diagnosis Flores's palsy- Primary Primary hypertension Unspecified essential hypertension Mixed hyperlipidemia Transgender woman on hormone therapy Obesity, Class II, BMI 35-39.9 Obesity, unspecified [facility]* Diagnosis Type 2 diabetes mellitus with diabetic neuropathy, with long-term current use of insulin (HCC)- Primary [facility]* Diagnosis Inadequately controlled diabetes mellitus (HCC) Type II or unspecified type diabetes mellitus without mention of complication, not stated as uncontrolled [facility]* Diagnosis Inadequately controlled diabetes mellitus (HCC) Type II or unspecified type diabetes mellitus without mention of complication, not stated as uncontrolled Type 2 diabetes mellitus with hyperglycemia, without long-term current use of insulin (HCC) Primary hypertension Unspecified essential hypertension Atrial flutter, unspecified type (HCC) Gender dysphoria Gender identity disorder in children Encounter for long-term (current) use of high-risk medication Encounter for long-term (current) use of other medications [facility] Diagnosis Type 2 diabetes mellitus with diabetic neuropathy, with long-term current use of insulin (HCC)- Primary Hepatic steatosis Other chronic nonalcoholic liver disease Primary hypertension Unspecified essential hypertension BE (obstructive sleep apnea) Obstructive sleep apnea (adult) (pediatric) Typical atrial flutter (HCC) Atrial flutter BMI (body mass index), pediatric, 5% to less than 85% for age Body Mass Index, pediatric, 5th percentile to less than 85th percentile for age BMI 38.0-38.9,adult Body Mass Index 38.0-38.9, adult [facility]* Diagnosis Atrial flutter, unspecified type (HCC)- Primary [facility]* Diagnosis Type 2 diabetes mellitus with diabetic neuropathy, with long-term current use of insulin (HCC) Type 2 diabetes mellitus with hyperglycemia, without long-term current use of insulin (HCC) Primary hypertension Unspecified essential hypertension Atrial flutter, unspecified type (HCC) [facility] Diagnosis Inadequately controlled diabetes mellitus (HCC) Type II or unspecified type diabetes mellitus without mention of complication, not stated as uncontrolled [facility]* Diagnosis Breast cancer screening by mammogram documented [facility]* Diagnosis Type 2 diabetes mellitus with hyperglycemia, without long-term current use of insulin (HCC)- Primary [facility]* Diagnosis Type 2 diabetes mellitus without complication, with long-term current use of insulin (HCC)- Primary Left hip pain Pain in joint, pelvic region and thigh Left sided sciatica Sciatica Screening for prostate cancer Special screening for malignant neoplasm of prostate Breast cancer screening by mammogram Bilateral impacted cerumen Impacted cerumen Gender dysphoria Gender identity disorder in children Breast cancer screening by mammogram [facility]* Diagnosis Mixed hyperlipidemia [facility]* Diagnosis Type 2 diabetes mellitus with diabetic neuropathy, with long-term current use of insulin (HCC) Primary hypertension Unspecified essential hypertension Atrial flutter, unspecified type (HCC) [facility] Additional Instructions I would strongly encourage you to follow-up with endocrinology as you need diabetic teaching and will need medication adjustments. [facility]. [facility]: Hospital Discharge instructions Additional Instructions Follow-up with your GI doctor. Take Pepto-Bismol for diarrhea. Your stool has been sent off for studies. If something comes up positive and you need additional medications you will be contacted later today or tomorrow morning. If you not hear from us by tomorrow morning with your results please call back to the emergency room.[facility] Work Phone: Reason for referral (narrative)* Diagnostic Procedure Only (Routine) - Authorized Specialty Diagnoses / Procedures Referred By Contac t Referred To Contact [facility] Diagnoses Elevated LFTs Procedures US ABD RT UPPER QUADRANT US ABDOMINAL REAL TIME W/IMAGE LIMITED Latoya Avila APRN.VOCAL PERFORMER [address] [place] [address] Us Imaging Referral ID Status Reason Start Date Expiration Date Visits Requested Visits Authorized [id number] Authorized Auto-Generat ed Referral 05/08/2021 06/07/2022 1 1 [facility] for referral (narrative)* Diagnostic Procedure Only (Routine) - Closed Specialty Diagnoses / Procedures Referred By Contac t Referred To Contact [facility] Diagnoses Elevated LFTs Procedures US ABD RT UPPER QUADRANT US ABDOMINAL REAL TIME W/IMAGE LIMITED Latoya Avila APRN.CNP [id number] [place] [address] Us Imaging Referral ID Status Reason Start Date Expiration Date V isits Requested Visits Authorized [id number] Closed Auto-Generate d Referral 05/08/2021 06/07/2022 1 1 T [facility] for referral (narrative)* Outpatient Procedure (Routine) - Closed Specialty Diagnoses / Procedures Referred By Contac t Referred To Contact [facility] Diagnoses Hepatic steatosis Elevated liver enzymes Procedures DDI VIBRATION CONTROLLED TRANSIENT ELASTOGRAPHY (VCTE) LIVER ELASTOGRAPHY W/O IMAG W/I&R Paige Bhatti PA-C [address] [place] [address] [facility] [address] [place] [address] Referral ID Status Reason Start Date Expiration Date V isits Requested Visits Authorized [id number] Closed Auto-Generate d Referral 03/05/2022 03/05/2023 1 1 [facility] for referral (narrative)* Diagnostic Procedure Only (Routine) - Pending Review Specialty Diagnoses / Procedures Referred By Contac t Referred To Contact [facility] Diagnoses Hepatic steatosis Elevated liver enzymes Hepatic fibrosis Procedures US ABD RT UPPER QUADRANT US ABDOMINAL REAL TIME W/IMAGE LIMITED Paige Bhatti PA-C [address] [place] [place] [id number] Us Imaging Referral ID Status Reason Start Date Expiration Date Visits Requested Visits Authorized [id number] Pending Review Auto-Generat ed Referral 03/05/2022 04/04/2023 1 1 [facility] for referral (narrative)* Diagnostic Procedure Only (Routine) - Pending Review Specialty Diagnoses / Procedures Referred By Kaushal t Referred To Contact [facility] Diagnoses Encounter for screening mammogram for malignant neoplasm of breast Procedures ROSALINDA SCREENING SCREENING MAMMOGRAPHY BI 2-VIEW [place] [address] [place] [id number] [facility] [address] [place] [id number] Referral ID Status Reason Start Date Expiration Date Visits Requested Visits Authorized [id number] Pending Review Auto-Generat ed Referral 3 12/24/2023 1 1 * Consult, Test, Treat (Routine) - Authorized Specialty Diagnoses / Procedures Referred By Kaushal fernandes Referred To Contact Diagnoses Primary hypertension Type 2 diabetes mellitus with diabetic neuropathy, with long-term current use of insulin (HCC) Obesity, Class II, BMI 35-39.9 Hepatic steatosis Procedures ENDOCRINE MEDICAL WEIGHT MANAGEMENT OFFICE/OUTPATIENT [facility] MDM 60-[place] [address] [place] [phone] Referral ID Status Reason Start Date Expiration Date Visits Requested Visits Authorized [id number] Authorized PCP Requested Referral 3 11/24/2023 1 1 [facility] for referral (narrative)* Diagnostic Procedure Only (Routine) - Closed Specialty Diagnoses / Procedures Referred By Kaushal fernandes Referred To Contact [facility] Diagnoses Hepatic steatosis Elevated liver enzymes Hepatic fibrosis Procedures US ABD RT UPPER QUADRANT US ABDOMINAL REAL TIME W/IMAGE LIMITED Paige Bhatti PA-C [address] [phone] [facility] [place] [address] Referral ID Status Reason Start Date Expiration Date V isits Requested Visits Authorized [id number] Closed Auto-Generate d Referral 03/05/2022 04/04/2023 1 1 [facility] for referral (narrative)* Diagnostic Procedure Only (Routine) - Closed Specialty Diagnoses / Procedures Referred By Contac t Referred To Contact [facility] Diagnoses Encounter for screening mammogram for malignant neoplasm of breast Procedures ROSALINDA SCREENING SCREENING MAMMOGRAPHY BI 2-[place] [address] [place] [phone] [facility] [address] [place] [phone] Referral ID Status Reason Start Date Expiration Date V isits Requested Visits Authorized [id number] Closed Auto-Generate d Referral 11/24/2022 12/24/2023 1 1 [facility] for referral (narrative)No reason for referral information availableSt[facility] Work Phone: [facility] Narrative* Diagnostic Procedure Only (Routine) - Closed Specialty Diagnoses / Procedures Referred By Contac t Referred To Contact [facility] Diagnoses Elevated LFTs Procedures US ABD RT UPPER QUADRANT US ABDOMINAL REAL TIME W/IMAGE LIMITED Latoya Avila APRN.CNP [address] [place] [address] [facility] Referral ID Status Reason Start Date Expiration Date V isits Requested Visits Authorized [id number] Closed Auto-Generate d Referral 05/08/2021 06/07/2022 1 1 [facility] for visit Narrative* Outpatient Procedure (Routine) - Closed Specialty Diagnoses / Procedures Referred By Contac t Referred To Contact [facility] Diagnoses Hepatic steatosis Elevated liver enzymes Procedures DDI VIBRATION CONTROLLED TRANSIENT ELASTOGRAPHY (VCTE) LIVER ELASTOGRAPHY W/O IMAG W/I&R Paige Bhatti PA-C [address] [place] [address] [facility] [address] [place] [id number] Referral ID Status Reason Start Date Expiration Date V isits Requested Visits Authorized [id number] Closed Auto-Generate d Referral 03/05/2022 03/05/2023 1 1 [facility] for visit Narrative* Diagnostic Procedure Only (Routine) - Closed Specialty Diagnoses / Procedures Referred By Contac t Referred To Contact [facility] Diagnoses Encounter for screening mammogram for malignant neoplasm of breast Procedures ROSALINDA SCREENING SCREENING MAMMOGRAPHY BI 2-[place] [address] [place] [address] [facility] [address] [place] [address] Referral ID Status Reason Start Date Expiration Date V isits Requested Visits Authorized [id number] Closed Auto-Generate d Referral 11/24/2022 12/24/2023 1 1 [facility] for visit Narrative* Diagnostic Procedure Only (Routine) - Closed Specialty Diagnoses / Procedures Referred By Kaushal fernandes Referred To Contact [facility] Diagnoses Breast cancer screening by mammogram Procedures ROSALINDA SCREENING W JESSY SCREENING DIGITAL BREAST TOMOSYNTHESIS BI SCREENING MAMMOGRAPHY BI 2-VIEW BREAST INC CAD Alli Aguirre, LANCE CREWMEMBER/MLRS SERGEANT.VOCAL PERFORMER [address] [place] [address] Phone: tel: fax: [facility] [address] [place] [address] Referral ID Status Reason Start Date Expiration Date V isits Requested Visits Authorized [id number] Closed Auto-Generate d Referral 08/27/2024 09/26/2025 1 1 [facility] Summary Purpose Family History No Family History Records Found Relationship Condition Age at Onset Recorded Date/T dana Not Specified Diabetes mellitus Unknown Hypertension Unknown Cerebrovascular accident (CVA) Unknown Advance Directives No Advanced Directives Records Found Advance Directive Response Recorded Date/ Time Living Will No June 16, 2021 7 :18pm Power of Slip Feeder No June 16, 2021 7:18pm Advance Directive Response Recorded Date/ Time Living Will No May 14, 2022 12:09pm Power of Slip Feeder No May 14 12:09pm Advance Directive Response Recorded Date/ Time Living Will No March 05 12:36pm Power of Slip Feeder No March 05, 2023 12:36pm Chief Complaint and Reason for Visit Chief Complaint HYPERGLYCEMIA Chief Complaint DIARRHEA Chief Complaint Admit Date AFIB (SHEETS) August 08, 2024 1:21p m Reason for Referral Specialty Diagnoses / Procedures Referred By Contac t Referred To Contact Diagnoses Class 2 severe obesity with serious comorbidity and body mass index (BMI) of 38.0 to 38.9 in adult, unspecified obesity type (HCC) Procedures ENDOCRINE MEDICAL WEIGHT MANAGEMENT OFFICE/OUTPATIENT [facility] 60-74 MINUTES [place] [address] Referral ID Status Reason Start Date Expiration Date Visits Requested Visits Authorized [id number] Authorized PCP Requested Referral 03/05/2022 03/05/2023 1 1 Specialty Diagnoses / Procedures Referred By Contac t Referred To Contact Diagnoses Primary hypertension Mixed hyperlipidemia Statin intolerance Procedures CONSULT TO PREVENTIVE CARD OFFICE/OUTPATIENT [facility] 60-74 MINUTES Latoya Avila APRN.VOCAL PERFORMER [id number] [place] [address] Referral ID Status Reason Start Date Expiration Date Visits Requested Visits Authorized [id number] Authorized PCP Requested Referral 03/05/2022 03/05/2023 1 1 Specialty Diagnoses / Procedures Referred By Contac t Referred To Contact Cardiology Diagnoses Atrial flutter, unspecified type (HCC) Procedures CONSULT TO CARDIOLOGY OFFICE/OUTPATIENT [facility] 60-74 MINUTES Annette Quintana [place] [id number] [place] [address] Referral ID Status Reason Start Date Expiration Date Visits Requested Visits Authorized [id number] Authorized PCP Requested Referral 03/24/2022 03/24/2023 1 1 Specialty Diagnoses / Procedures Referred By Contac t Referred [facility] Diagnoses Atrial flutter, unspecified type (HCC) Procedures ECHO ECHO TTHRC R-T 2D W/WOM-MODE COMPL SPEC&COLR D Annette Quintana [place] [id number] [place] [phone] [facility] [address] [place] [id number] Referral ID Status Reason Start Date Expiration Date Visits Requested Visits Authorized [id number] Additional Clinical Info Needed Auto-Generat ed Referral 03/24/2022 03/24/2023 1 1 Specialty Diagnoses / Procedures Referred By Contac t Referred To Contact CT IMAGING Diagnoses Abnormal electrocardiogram Procedures CT CALCIUM SCORING SELF PAY ([place]) UNLISTED COMPUTED [place] [address] [place] [address] [place] [address] Referral ID Status Reason Start Date Expiration Date Visits Requested Visits Authorized [id number] Pending Review Auto-Generat ed Referral 3 02/18/2024 1 1 Specialty Diagnoses / Procedures Referred By Contac t Referred To [facility] Diagnoses Typical atrial flutter (HCC) Procedures ECHO ECHO TTHRC R-T 2D W/WOM-MODE COMPL SPEC&[place] [address] [place] [address] [facility] [address] [place] [address] Referral ID Status Reason Start Date Expiration Date Visits Requested Visits Authorized [id number] Authorized Auto-Generat ed Referral 03/20/2023 1 1 Specialty Diagnoses / Procedures Referred By Contac t Referred To Contact Diagnoses Type 2 diabetes mellitus with diabetic neuropathy, with long-term current use of insulin (HCC) Procedures ENDOCRINOLOGY DIETITIAN VISIT (MNT) MEDICAL NUTRITION ASSMT&IVNTJ INDIV EACH 15 MD MEDICAL NUTRITION ASSMT&IVNTJ INDIV EACH 15 MD MEDICAL NUTRITION ASSMT&IVNTJ INDIV EACH 15 MD MEDICAL NUTRITION ASSMT&IVNTJ INDIV EACH 15 [place] [address] [place] [address] Referral ID Status Reason Start Date Expiration Date Visits Requested Visits Authorized [id number] Authorized PCP Requested Referral 03/22/2023 03/21/2024 1 1 Medications Administered Section Inactive Administered [...] ized section and content) DATE CREATED AUTHOR 04/01/2021 [facility] DATE CREATED AUTHOR AUTHOR'S ORGANIZ ATION 08/10/2024 [facility] DATE CREATED AUTHOR AUTHOR'S ORGANIZ ATION 09/10/2024 [facility] DATE CREATED AUTHOR AUTHOR'S ORGANIZ ATION 11/11/2024 [facility] Source Comments (unrecognize d section and content) In the event this informatio n is protected by the Federal Confidentiality of Alcohol and Drug Abuse Patient Records regulations: The Federal rules restrict any use of the information to criminally investigate or prosecute any alcohol or drug abuse patient.[facility] the event this information is protected by the Federal Confidentiality of Alcohol and Drug Abuse Patient Records regulations: The Federal rules restrict any use of the information to criminally investigate or prosecute any alcohol or drug abuse patient.[facility] the event this information is protected by the Federal Confidentiality of Alcohol and Drug Abuse Patient Records regulations: The Federal rules restrict any use of the information to criminally investigate or prosecute any alcohol or drug abuse patient.[facility] the event this information is protected by the Federal Confidentiality of Alcohol and Drug Abuse Patient Records regulations: The Federal rules restrict any use of the information to criminally investigate or prosecute any alcohol or drug abuse patient.[facility] the event this information is protected by the Federal Confidentiality of Alcohol and Drug Abuse Patient Records regulations: The Federal rules restrict any use of the information to criminally investigate or prosecute any alcohol or drug abuse patient.[facility] the event this information is protected by the Federal Confidentiality of Alcohol and Drug Abuse Patient Records regulations: The Federal rules restrict any use of the information to criminally investigate or prosecute any alcohol or drug abuse patient.[facility] the event this information is protected by the Federal Confidentiality of Alcohol and Drug Abuse Patient Records regulations: The Federal rules restrict any use of the information to criminally investigate or prosecute any alcohol or drug abuse patient.[facility]In the event this information is protected by the Federal Confidentiality of Alcohol and Drug Abuse Patient Records regulations: The Federal rules restrict any use of the information to criminally investigate or prosecute any alcohol or drug abuse patient.[facility] the event this information is protected by the Federal Confidentiality of Alcohol and Drug Abuse Patient Records regulations: The Federal rules restrict any use of the information to criminally investigate or prosecute any alcohol or drug abuse patient.[facility] the event this information is protected by the Federal Confidentiality of Alcohol and Drug Abuse Patient Records regulations: The Federal rules restrict any use of the information to criminally investigate or prosecute any alcohol or drug abuse patient.[facility]In the event this information is protected by the Federal Confidentiality of Alcohol and Drug Abuse Patient Records regulations: The Federal rules restrict any use of the information to criminally investigate or prosecute any alcohol or drug abuse patient.[facility]In the event this information is protected by the Federal Confidentiality of Alcohol and Drug Abuse Patient Records regulations: The Federal rules restrict any use of the information to criminally investigate or prosecute any alcohol or drug abuse patient.[facility] the event this information is protected by the Federal Confidentiality of Alcohol and Drug Abuse Patient Records regulations: The Federal rules restrict any use of the information to criminally investigate or prosecute any alcohol or drug abuse patient.[facility]In the event this information is protected by the Federal Confidentiality of Alcohol and Drug Abuse Patient Records regulations: The Federal rules restrict any use of the information to criminally investigate or prosecute any alcohol or drug abuse patient.[facility]In the event this information is protected by the Federal Confidentiality of Alcohol and Drug Abuse Patient Records regulations: The Federal rules restrict any use of the information to criminally investigate or prosecute any alcohol or drug abuse patient.[facility]In the event this information is protected by the Federal Confidentiality of Alcohol and Drug Abuse Patient Records regulations: The Federal rules restrict any use of the information to criminally investigate or prosecute any alcohol or drug abuse patient.[facility]In the event this information is protected by the Federal Confidentiality of Alcohol and Drug Abuse Patient Records regulations: The Federal rules restrict any use of the information to criminally investigate or prosecute any alcohol or drug abuse patient.[facility]In the event this information is protected by the Federal Confidentiality of Alcohol and Drug Abuse Patient Records regulations: The Federal rules restrict any use of the information to criminally investigate or prosecute any alcohol or drug abuse patient.[facility]In the event this information is protected by the Federal Confidentiality of Alcohol and Drug Abuse Patient Records regulations: The Federal rules restrict any use of the information to criminally investigate or prosecute any alcohol or drug abuse patient.[facility]In the event this information is protected by the Federal Confidentiality of Alcohol and Drug Abuse Patient Records regulations: The Federal rules restrict any use of the information to criminally investigate or prosecute any alcohol or drug abuse patient.[facility]In the event this information is protected by the Federal Confidentiality of Alcohol and Drug Abuse Patient Records regulations: The Federal rules restrict any use of the information to criminally investigate or prosecute any alcohol or drug abuse patient.[facility] HospitalIn the event this information is protected by the Federal Confidentiality of Alcohol and Drug Abuse Patient Records regulations: The Federal rules restrict any use of the information to criminally investigate or prosecute any alcohol or drug abuse patient.[facility] HospitalIn the event this information is protected by the Federal Confidentiality of Alcohol and Drug Abuse Patient Records regulations: The Federal rules restrict any use of the information to criminally investigate or prosecute any alcohol or drug abuse patient.[facility] HospitalIn the event this information is protected by the Federal Confidentiality of Alcohol and Drug Abuse Patient Records regulations: The Federal rules restrict any use of the information to criminally investigate or prosecute any alcohol or drug abuse patient.[facility]In the event this information is protected by the Federal Confidentiality of Alcohol and Drug Abuse Patient Records regulations: The Federal rules restrict any use of the information to criminally investigate or prosecute any alcohol or drug abuse patient.[facility]In the event this information is protected by the Federal Confidentiality of Alcohol and Drug Abuse Patient Records regulations: The Federal rules restrict any use of the information to criminally investigate or prosecute any alcohol or drug abuse patient.[facility] HospitalIn the event this information is protected by the Federal Confidentiality of Alcohol and Drug Abuse Patient Records regulations: The Federal rules restrict any use of the information to criminally investigate or prosecute any alcohol or drug abuse patient.[facility]In the event this information is protected by the Federal Confidentiality of Alcohol and Drug Abuse Patient Records regulations: The Federal rules restrict any use of the information to criminally investigate or prosecute any alcohol or drug abuse patient.[facility] HospitalIn the event this information is protected by the Federal Confidentiality of Alcohol and Drug Abuse Patient Records regulations: The Federal rules restrict any use of the information to criminally investigate or prosecute any alcohol or drug abuse patient.[facility] HospitalIn the event this information is protected by the Federal Confidentiality of Alcohol and Drug Abuse Patient Records regulations: The Federal rules restrict any use of the information to criminally investigate or prosecute any alcohol or drug abuse patient.[facility]In the event this information is protected by the Federal Confidentiality of Alcohol and Drug Abuse Patient Records regulations: The Federal rules restrict any use of the information to criminally investigate or prosecute any alcohol or drug abuse patient.[facility] HospitalIn the event this information is protected by the Federal Confidentiality of Alcohol and Drug Abuse Patient Records regulations: The Federal rules restrict any use of the information to criminally investigate or prosecute any alcohol or drug abuse patient.[facility]In the event this information is protected by the Federal Confidentiality of Alcohol and Drug Abuse Patient Records regulations: The Federal rules restrict any use of the information to criminally investigate or prosecute any alcohol or drug abuse patient.[facility] HospitalIn the event this information is protected by the Federal Confidentiality of Alcohol and Drug Abuse Patient Records regulations: The Federal rules restrict any use of the information to criminally investigate or prosecute any alcohol or drug abuse patient.[facility] HospitalIn the event this information is protected by the Federal Confidentiality of Alcohol and Drug Abuse Patient Records regulations: The Federal rules restrict any use of the information to criminally investigate or prosecute any alcohol or drug abuse patient.[facility]In the event this information is protected by the Federal Confidentiality of Alcohol and Drug Abuse Patient Records regulations: The Federal rules restrict any use of the information to criminally investigate or prosecute any alcohol or drug abuse patient.[facility] HospitalIn the event this information is protected by the Federal Confidentiality of Alcohol and Drug Abuse Patient Records regulations: The Federal rules restrict any use of the information to criminally investigate or prosecute any alcohol or drug abuse patient.[facility] HospitalIn the event this information is protected by the Federal Confidentiality of Alcohol and Drug Abuse Patient Records regulations: The Federal rules restrict any use of the information to criminally investigate or prosecute any alcohol or drug abuse patient.[facility] HospitalIn the event this information is protected by the Federal Confidentiality of Alcohol and Drug Abuse Patient Records regulations: The Federal rules restrict any use of the information to criminally investigate or prosecute any alcohol or drug abuse patient.[facility] HospitalIn the event this information is protected by the Federal Confidentiality of Alcohol and Drug Abuse Patient Records regulations: The Federal rules restrict any use of the information to criminally investigate or prosecute any alcohol or drug abuse patient.[facility] HospitalIn the event this information is protected by the Federal Confidentiality of Alcohol and Drug Abuse Patient Records regulations: The Federal rules restrict any use of the information to criminally investigate or prosecute any alcohol or drug abuse patient.[facility] HospitalIn the event this information is protected by the Federal Confidentiality of Alcohol and Drug Abuse Patient Records regulations: The Federal rules restrict any use of the information to criminally investigate or prosecute any alcohol or drug abuse patient.[facility] HospitalIn the event this information is protected by the Federal Confidentiality of Alcohol and Drug Abuse Patient Records regulations: The Federal rules restrict any use of the information to criminally investigate or prosecute any alcohol or drug abuse patient.[facility] HospitalIn the event this information is protected by the Federal Confidentiality of Alcohol and Drug Abuse Patient Records regulations: The Federal rules restrict any use of the information to criminally investigate or prosecute any alcohol or drug abuse patient.[facility] HospitalIn the event this information is protected by the Federal Confidentiality of Alcohol and Drug Abuse Patient Records regulations: The Federal rules restrict any use of the information to criminally investigate or prosecute any alcohol or drug abuse patient.[facility] the event this information is protected by the Federal Confidentiality of Alcohol and Drug Abuse Patient Records regulations: The Federal rules restrict any use of the information to criminally investigate or prosecute any alcohol or drug abuse patient.[facility]In the event this information is protected by the Federal Confidentiality of Alcohol and Drug Abuse Patient Records regulations: The Federal rules restrict any use of the information to criminally investigate or prosecute any alcohol or drug abuse patient.[facility]In the event this information is protected by the Federal Confidentiality of Alcohol and Drug Abuse Patient Records regulations: The Federal rules restrict any use of the information to criminally investigate or prosecute any alcohol or drug abuse patient.[facility] HospitalIn the event this information is protected by the Federal Confidentiality of Alcohol and Drug Abuse Patient Records regulations: The Federal rules restrict any use of the information to criminally investigate or prosecute any alcohol or drug abuse patient.[facility] HospitalIn the event this information is protected by the Federal Confidentiality of Alcohol and Drug Abuse Patient Records regulations: The Federal rules restrict any use of the information to criminally investigate or prosecute any alcohol or drug abuse patient.[facility] HospitalIn the event this information is protected by the Federal Confidentiality of Alcohol and Drug Abuse Patient Records regulations: The Federal rules restrict any use of the information to criminally investigate or prosecute any alcohol or drug abuse patient.[facility] HospitalIn the event this information is protected by the Federal Confidentiality of Alcohol and Drug Abuse Patient Records regulations: The Federal rules restrict any use of the information to criminally investigate or prosecute any alcohol or drug abuse patient.[facility] HospitalIn the event this information is protected by the Federal Confidentiality of Alcohol and Drug Abuse Patient Records regulations: The Federal rules restrict any use of the information to criminally investigate or prosecute any alcohol or drug abuse patient.[facility]In the event this information is protected by the Federal Confidentiality of Alcohol and Drug Abuse Patient Records regulations: The Federal rules restrict any use of the information to criminally investigate or prosecute any alcohol or drug abuse patient.[facility]In the event this information is protected by the Federal Confidentiality of Alcohol and Drug Abuse Patient Records regulations: The Federal rules restrict any use of the information to criminally investigate or prosecute any alcohol or drug abuse patient.[facility] HospitalIn the event this information is protected by the Federal Confidentiality of Alcohol and Drug Abuse Patient Records regulations: The Federal rules restrict any use of the information to criminally investigate or prosecute any alcohol or drug abuse patient.[facility] HospitalIn the event this information is protected by the Federal Confidentiality of Alcohol and Drug Abuse Patient Records regulations: The Federal rules restrict any use of the information to criminally investigate or prosecute any alcohol or drug abuse patient.[facility] HospitalIn the event this information is protected by the Federal Confidentiality of Alcohol and Drug Abuse Patient Records regulations: The Federal rules restrict any use of the information to criminally investigate or prosecute any alcohol or drug abuse patient.[facility] HospitalIn the event this information is protected by the Federal Confidentiality of Alcohol and Drug Abuse Patient Records regulations: The Federal rules restrict any use of the information to criminally investigate or prosecute any alcohol or drug abuse patient.[facility] HospitalIn the event this information is protected by the Federal Confidentiality of Alcohol and Drug Abuse Patient Records regulations: The Federal rules restrict any use of the information to criminally investigate or prosecute any alcohol or drug abuse patient.[facility] HospitalIn the event this information is protected by the Federal Confidentiality of Alcohol and Drug Abuse Patient Records regulations: The Federal rules restrict any use of the information to criminally investigate or prosecute any alcohol or drug abuse patient.[facility] HospitalIn the event this information is protected by the Federal Confidentiality of Alcohol and Drug Abuse Patient Records regulations: The Federal rules restrict any use of the information to criminally investigate or prosecute any alcohol or drug abuse patient.[facility] HospitalIn the event this information is protected by the Federal Confidentiality of Alcohol and Drug Abuse Patient Records regulations: The Federal rules restrict any use of the information to criminally investigate or prosecute any alcohol or drug abuse patient.[facility] HospitalIn the event this information is protected by the Federal Confidentiality of Alcohol and Drug Abuse Patient Records regulations: The Federal rules restrict any use of the information to criminally investigate or prosecute any alcohol or drug abuse patient.[facility] HospitalIn the event this information is protected by the Federal Confidentiality of Alcohol and Drug Abuse Patient Records regulations: The Federal rules restrict any use of the information to criminally investigate or prosecute any alcohol or drug abuse patient.[facility] HospitalIn the event this information is protected by the Federal Confidentiality of Alcohol and Drug Abuse Patient Records regulations: The Federal rules restrict any use of the information to criminally investigate or prosecute any alcohol or drug abuse patient.[facility] HospitalIn the event this information is protected by the Federal Confidentiality of Alcohol and Drug Abuse Patient Records regulations: The Federal rules restrict any use of the information to criminally investigate or prosecute any alcohol or drug abuse patient.[facility] HospitalIn the event this information is protected by the Federal Confidentiality of Alcohol and Drug Abuse Patient Records regulations: The Federal rules restrict any use of the information to criminally investigate or prosecute any alcohol or drug abuse patient.[facility] HospitalIn the event this information is protected by the Federal Confidentiality of Alcohol and Drug Abuse Patient Records regulations: The Federal rules restrict any use of the information to criminally investigate or prosecute any alcohol or drug abuse patient.[facility] HospitalIn the event this information is protected by the Federal Confidentiality of Alcohol and Drug Abuse Patient Records regulations: The Federal rules restrict any use of the information to criminally investigate or prosecute any alcohol or drug abuse patient.[facility] HospitalIn the event this information is protected by the Federal Confidentiality of Alcohol and Drug Abuse Patient Records regulations: The Federal rules restrict any use of the information to criminally investigate or prosecute any alcohol or drug abuse patient.[facility] HospitalIn the event this information is protected by the Federal Confidentiality of Alcohol and Drug Abuse Patient Records regulations: The Federal rules restrict any use of the information to criminally investigate or prosecute any alcohol or drug abuse patient.[facility] HospitalIn the event this information is protected by the Federal Confidentiality of Alcohol and Drug Abuse Patient Records regulations: The Federal rules restrict any use of the information to criminally investigate or prosecute any alcohol or drug abuse patient.[facility] HospitalIn the event this information is protected by the Federal Confidentiality of Alcohol and Drug Abuse Patient Records regulations: The Federal rules restrict any use of the information to criminally investigate or prosecute any alcohol or drug abuse patient.[facility] HospitalIn the event this information is protected by the Federal Confidentiality of Alcohol and Drug Abuse Patient Records regulations: The Federal rules restrict any use of the information to criminally investigate or prosecute any alcohol or drug abuse patient.[facility] HospitalIn the event this information is protected by the Federal Confidentiality of Alcohol and Drug Abuse Patient Records regulations: The Federal rules restrict any use of the information to criminally investigate or prosecute any alcohol or drug abuse patient.[facility] HospitalIn the event this information is protected by the Federal Confidentiality of Alcohol and Drug Abuse Patient Records regulations: The Federal rules restrict any use of the information to criminally investigate or prosecute any alcohol or drug abuse patient.[facility] HospitalIn the event this information is protected by the Federal Confidentiality of Alcohol and Drug Abuse Patient Records regulations: The Federal rules restrict any use of the information to criminally investigate or prosecute any alcohol or drug abuse patient.[facility] HospitalIn the event this information is protected by the Federal Confidentiality of Alcohol and Drug Abuse Patient Records regulations: The Federal rules restrict any use of the information to criminally investigate or prosecute any alcohol or drug abuse patient.[facility] HospitalIn the event this information is protected by the Federal Confidentiality of Alcohol and Drug Abuse Patient Records regulations: The Federal rules restrict any use of the information to criminally investigate or prosecute any alcohol or drug abuse patient.[facility] HospitalIn the event this information is protected by the Federal Confidentiality of Alcohol and Drug Abuse Patient Records regulations: The Federal rules restrict any use of the information to criminally investigate or prosecute any alcohol or drug abuse patient.[facility] HospitalIn the event this information is protected by the Federal Confidentiality of Alcohol and Drug Abuse Patient Records regulations: The Federal rules restrict any use of the information to criminally investigate or prosecute any alcohol or drug abuse patient.[facility] HospitalIn the event this information is protected by the Federal Confidentiality of Alcohol and Drug Abuse Patient Records regulations: The Federal rules restrict any use of the information to criminally investigate or prosecute any alcohol or drug abuse patient.[facility] HospitalIn the event this information is protected by the Federal Confidentiality of Alcohol and Drug Abuse Patient Records regulations: The Federal rules restrict any use of the information to criminally investigate or prosecute any alcohol or drug abuse patient.[facility] HospitalIn the event this information is protected by the Federal Confidentiality of Alcohol and Drug Abuse Patient Records regulations: The Federal rules restrict any use of the information to criminally investigate or prosecute any alcohol or drug abuse patient.[facility] HospitalIn the event this information is protected by the Federal Confidentiality of Alcohol and Drug Abuse Patient Records regulations: The Federal rules restrict any use of the information to criminally investigate or prosecute any alcohol or drug abuse patient.[facility] HospitalIn the event this information is protected by the Federal Confidentiality of Alcohol and Drug Abuse Patient Records regulations: The Federal rules restrict any use of the information to criminally investigate or prosecute any alcohol or drug abuse patient.[facility] HospitalIn the event this information is protected by the Federal Confidentiality of Alcohol and Drug Abuse Patient Records regulations: The Federal rules restrict any use of the information to criminally investigate or prosecute any alcohol or drug abuse patient.[facility] HospitalIn the event this information is protected by the Federal Confidentiality of Alcohol and Drug Abuse Patient Records regulations: The Federal rules restrict any use of the information to criminally investigate or prosecute any alcohol or drug abuse patient.[facility] HospitalIn the event this information is protected by the Federal Confidentiality of Alcohol and Drug Abuse Patient Records regulations: The Federal rules restrict any use of the information to criminally investigate or prosecute any alcohol or drug abuse patient.[facility] HospitalIn the event this information is protected by the Federal Confidentiality of Alcohol and Drug Abuse Patient Records regulations: The Federal rules restrict any use of the information to criminally investigate or prosecute any alcohol or drug abuse patient.[facility] HospitalIn the event this information is protected by the Federal Confidentiality of Alcohol and Drug Abuse Patient Records regulations: The Federal rules restrict any use of the information to criminally investigate or prosecute any alcohol or drug abuse patient.[facility] HospitalIn the event this information is protected by the Federal Confidentiality of Alcohol and Drug Abuse Patient Records regulations: The Federal rules restrict any use of the information to criminally investigate or prosecute any alcohol or drug abuse patient.[facility] HospitalIn the event this information is protected by the Federal Confidentiality of Alcohol and Drug Abuse Patient Records regulations: The Federal rules restrict any use of the information to criminally investigate or prosecute any alcohol or drug abuse patient.[facility] HospitalIn the event this information is protected by the Federal Confidentiality of Alcohol and Drug Abuse Patient Records regulations: The Federal rules restrict any use of the information to criminally investigate or prosecute any alcohol or drug abuse patient.[facility] the event this information is protected by the Federal Confidentiality of Alcohol and Drug Abuse Patient Records regulations: The Federal rules restrict any use of the information to criminally investigate or prosecute any alcohol or drug abuse patient.[facility] HospitalIn the event this information is protected by the Federal Confidentiality of Alcohol and Drug Abuse Patient Records regulations: The Federal rules restrict any use of the information to criminally investigate or prosecute any alcohol or drug abuse patient.[facility] HospitalIn the event this information is protected by the Federal Confidentiality of Alcohol and Drug Abuse Patient Records regulations: The Federal rules restrict any use of the information to criminally investigate or prosecute any alcohol or drug abuse patient.[facility] HospitalIn the event this information is protected by the Federal Confidentiality of Alcohol and Drug Abuse Patient Records regulations: The Federal rules restrict any use of the information to criminally investigate or prosecute any alcohol or drug abuse patient.[facility] HospitalIn the event this information is protected by the Federal Confidentiality of Alcohol and Drug Abuse Patient Records regulations: The Federal rules restrict any use of the information to criminally investigate or prosecute any alcohol or drug abuse patient.[facility] HospitalIn the event this information is protected by the Federal Confidentiality of Alcohol and Drug Abuse Patient Records regulations: The Federal rules restrict any use of the information to criminally investigate or prosecute any alcohol or drug abuse patient.[facility] HospitalIn the event this information is protected by the Federal Confidentiality of Alcohol and Drug Abuse Patient Records regulations: The Federal rules restrict any use of the information to criminally investigate or prosecute any alcohol or drug abuse patient.[facility] HospitalIn the event this information is protected by the Federal Confidentiality of Alcohol and Drug Abuse Patient Records regulations: The Federal rules restrict any use of the information to criminally investigate or prosecute any alcohol or drug abuse patient.[facility] HospitalIn the event this information is protected by the Federal Confidentiality of Alcohol and Drug Abuse Patient Records regulations: The Federal rules restrict any use of the information to criminally investigate or prosecute any alcohol or drug abuse patient.[facility] HospitalIn the event this information is protected by the Federal Confidentiality of Alcohol and Drug Abuse Patient Records regulations: The Federal rules restrict any use of the information to criminally investigate or prosecute any alcohol or drug abuse patient.[facility] HospitalIn the event this information is protected by the Federal Confidentiality of Alcohol and Drug Abuse Patient Records regulations: The Federal rules restrict any use of the information to criminally investigate or prosecute any alcohol or drug abuse patient.[facility] HospitalIn the event this information is protected by the Federal Confidentiality of Alcohol and Drug Abuse Patient Records regulations: The Federal rules restrict any use of the information to criminally investigate or prosecute any alcohol or drug abuse patient.[facility] HospitalIn the event this information is protected by the Federal Confidentiality of Alcohol and Drug Abuse Patient Records regulations: The Federal rules restrict any use of the information to criminally investigate or prosecute any alcohol or drug abuse patient.[facility] HospitalIn the event this information is protected by the Federal Confidentiality of Alcohol and Drug Abuse Patient Records regulations: The Federal rules restrict any use of the information to criminally investigate or prosecute any alcohol or drug abuse patient.[facility] HospitalIn the event this information is protected by the Federal Confidentiality of Alcohol and Drug Abuse Patient Records regulations: The Federal rules restrict any use of the information to criminally investigate or prosecute any alcohol or drug abuse patient.[facility] HospitalIn the event this information is protected by the Federal Confidentiality of Alcohol and Drug Abuse Patient Records regulations: The Federal rules restrict any use of the information to criminally investigate or prosecute any alcohol or drug abuse patient.[facility] HospitalIn the event this information is protected by the Federal Confidentiality of Alcohol and Drug Abuse Patient Records regulations: The Federal rules restrict any use of the information to criminally investigate or prosecute any alcohol or drug abuse patient.[facility] HospitalIn the event this information is protected by the Federal Confidentiality of Alcohol and Drug Abuse Patient Records regulations: The Federal rules restrict any use of the information to criminally investigate or prosecute any alcohol or drug abuse patient.[facility] HospitalIn the event this information is protected by the Federal Confidentiality of Alcohol and Drug Abuse Patient Records regulations: The Federal rules restrict any use of the information to criminally investigate or prosecute any alcohol or drug abuse patient.[facility] HospitalIn the event this information is protected by the Federal Confidentiality of Alcohol and Drug Abuse Patient Records regulations: The Federal rules restrict any use of the information to criminally investigate or prosecute any alcohol or drug abuse patient.[facility] Reason for Visit (unrecogniz ed section and content) Reason Comments Results Reason Comments F/U on HT Reason Comments [...] HIGH MDM 60-[place] [address] [place] [address] Referral ID Status Reason Start Date Expiration Date V isits Requested Visits Authorized [id number] Closed PCP Requested Referral 03/24/2022 03/24/2023 1 [...] QUADRANT US ABDOMINAL REAL TIME W/IMAGE LIMITED Paige Bhatti PA-C [address] [place] [address] [place] [address] Referral ID Status Reason Start Date Expiration Date V isits Requested Visits Authorized [id number] Closed Auto-Generate d Referral 03/05/2022 04/04/2023 1 1 Reason Comments Diabetic Eye Exam Type 2 IDDM Reason Onset Date Comments Refill Request 01/02/2023 Reason Comments Diabetes Reason Comments Medical Weight Management Specialty Diagnoses / Procedures Referred By Contac t Referred To Contact Diagnoses Primary hypertension Type 2 diabetes mellitus with diabetic neuropathy, with long-term current use of insulin (HCC) Obesity, Class II, BMI 35-39.9 Hepatic steatosis Procedures ENDOCRINE MEDICAL WEIGHT MANAGEMENT OFFICE/OUTPATIENT NEW HIGH MDM 60-[place] [address] [place] [address] Referral ID Status Reason Start Date Expiration Date V isits Requested Visits Authorized [id number] Closed PCP Requested Referral 11/24/2022 11/24/2023 1 1 Reason Comments Recheck Reason Onset Date Comments Refill Request 04/15/2023 Reason Onset Date Comments Refill Request 05/12/2023 Reason Onset Date Comments Refill Request 05/16/2023 Reason Comments Medical Weight Management Reason Comments Missed Appointment Reason Comments Results Cholesterol Reason Onset Date Comments Refill Request 09/17/2023 Reason Onset Date Comments Refill Request 10/10/2023 Reason Onset Date Comments Refill Request 11/10/2023 Reason Onset Date Comments Refill Request 11/17/2023 Reason Onset Date Comments Refill Request 12/12/2023 Reason Onset Date Comments Refill Request 01/09/2024 Reason Onset Date Comments Refill Request 02/06/2024 Reason Onset Date Comments Refill Request 02/16/2024 Reason Comments New Patient Establish care previ ous pcp was Latoya Avila CNP in [place]. Was in [facility] ER 02/23/24 for [place] Palsy, is feeling a little better. Reason Onset Date Comments Refill Request 05/08/2024 Reason Comments Medical Weight Management Reason Comments Insurance Authorization semaglutide (OZE MPIC) 0.25 mg or 0.5 mg (2 mg/3 mL) pen Reason Onset Date Comments Refill Request 05/24/2024 Reason Onset Date Comments Refill Request 08/09/2024 Reason Comments Establish Care Sciatica Left hip goes down l eft leg x 4 months. Right sciatica just started a week ago. Diabetes Reason Onset Date Comments Refill Request 09/29/2024 Reason Onset Date Comments Refill Request 10/22/2024 Care Teams (unrecognized sec tion and content) [employer] Relationship Specialty Start Date End Date Latoya Avila APRN.VOCAL PERFORMER [address] [place] [address] PCP - General Internal Medicine 07/16/19 Alem Mathias, RN Registered Nurse 09/25/20 [employer] Relationship Specialty Start Date End Date Latoya Avila APRN.VOCAL PERFORMER [address] [place] [id number] PCP - General Internal Medicine 07/16/19 Alem Mathias, RN Registered Nurse 09/25/20 [employer] Architect Relationship Specialty Start Date End Date Latoya Avila APRN.VOCAL PERFORMER [address] [place] [address] PCP - General Internal Medicine 07/16/19 Alem Mathias, RN Registered Nurse 09/25/20 [employer] Relationship Specialty Start Date End Date Latoya Avila APRN.VOCAL PERFORMER [address] [place] [address] PCP - General Internal Medicine 07/16/19 Alem Mathias, RN Registered Nurse 09/25/20 [employer] Relationship Specialty Start Date End Date Latoya Avila APRN.VOCAL PERFORMER [address] [place] [address] PCP - General Internal Medicine 07/16/19 Alem Mathias, RN Registered Nurse 09/25/20 [employer] Relationship Specialty Start Date End Date Latoya Avila APRN.VOCAL PERFORMER [id number] [place] [id number] PCP - General Internal Medicine 07/16/19 Alem Mathias, RN Registered Nurse 09/25/20 [employer] Architect Relationship Specialty Start Date End Date Latoya Avila APRN.VOCAL PERFORMER [address] [place] [id number] PCP - General Internal Medicine 07/16/19 Alem Mathias, RN Registered Nurse 09/25/20 [employer] Architect Relationship Specialty Start Date End Date Latoya Avila APRN.VOCAL PERFORMER [address] [place] [address] PCP - General Internal Medicine 07/16/19 Alem Mathias, RN Registered Nurse 09/25/20 [employer] Architect Relationship Specialty Start Date End Date Latoya Avila APRN.VOCAL PERFORMER [address] [place] [address] PCP - General Internal Medicine 07/16/19 Alem Mathias, RN Registered Nurse 09/25/20 [employer] Architect Relationship Specialty Start Date End Date Latoya Avila APRN.VOCAL PERFORMER [address] [place] [id number] PCP - General Internal Medicine 07/16/19 Alem Mathias, RN Registered Nurse 09/25/20 [employer] Architect Relationship Specialty Start Date End Date Latoya Avila APRN.VOCAL PERFORMER [address] [place] [id number] PCP - General Internal Medicine 07/16/19 Alem Mathias, RN Registered Nurse 09/25/20 [employer] Relationship Specialty Start Date End Date Latoya Avila APRN.VOCAL PERFORMER [address] [place] [id number] PCP - General Internal Medicine 07/16/19 Alem Mathias, RN Registered Nurse 09/25/20 [employer] Architect Relationship Specialty Start Date End Date Latoya Avila APRN.VOCAL PERFORMER [id number] [place] [id number] PCP - General Internal Medicine 07/16/19 Alem Mathias, RN Registered Nurse 09/25/20 [employer] Relationship Specialty Start Date End Date Latoya Avila APRN.VOCAL PERFORMER [address] [place] [id number] PCP - General Internal Medicine 07/16/19 Alem Mathias, RN Registered Nurse 09/25/20 [employer] Architect Relationship Specialty Start Date End Date Latoya Avila APRN.VOCAL PERFORMER [address] [place] [address] PCP - General Internal Medicine 07/16/19 Alem Mathias, RN Registered Nurse 09/25/20 [employer] Relationship Specialty Start Date End Date Latoya Avila APRN.VOCAL PERFORMER [address] [place] [id number] PCP - General Internal Medicine 07/16/19 Alem Mathias, RN Registered Nurse 09/25/20 [employer] Relationship Specialty Start Date End Date Latoya Avila APRN.VOCAL PERFORMER [address] [place] [id number] PCP - General Internal Medicine 07/16/19 Alem Mathias, RN Registered Nurse 09/25/20 [employer] Architect Relationship Specialty Start Date End Date Latoya Avila APRN.VOCAL PERFORMER [address] [place] [id number] PCP - General Internal Medicine 07/16/19 Alem Mathias, RN Registered Nurse 09/25/20 [employer] Relationship Specialty Start Date End Date Kell Granados [address] [address] PCP - General 09/05/14 [employer] Relationship Specialty Start Date End Date Latoya Avila APRN.VOCAL PERFORMER [address] [place] [address] PCP - General Internal Medicine 07/16/19 Alem Mathias, RN Registered Nurse 09/25/20 [employer] Relationship Specialty Start Date End Date Latoya Avila APRN.VOCAL PERFORMER [address] [place] [address] PCP - General Internal Medicine 07/16/19 Alem Mathias, RN Registered Nurse 09/25/20 [employer] Relationship Specialty Start Date End Date Latoya Avila APRN.VOCAL PERFORMER [id number] [place] [address] PCP - General Internal Medicine 07/16/19 Alem Mathias, RN Registered Nurse 09/25/20 [employer] Architect Relationship Specialty Start Date End Date Latoya Avila APRN.VOCAL PERFORMER [address] [address] [place] [address] PCP - General Internal Medicine 07/16/19 Alem Mathias, RN Registered Nurse 09/25/20 [employer] Relationship Specialty Start Date End Date Latoya Avila APRN.VOCAL PERFORMER [address] [place] [address] PCP - General Internal Medicine 07/16/19 Alem Mathias, RN Registered Nurse 09/25/20 [employer] Relationship Specialty Start Date End Date Latoya Avila APRN.VOCAL PERFORMER [address] [place] [address] PCP - General Internal Medicine 07/16/19 Alem Mathias, RN Registered Nurse 09/25/20 [employer] Relationship Specialty Start Date End Date Latoya Avila APRN.VOCAL PERFORMER [id number] [place] [address] PCP - General Internal Medicine 07/16/19 Alem Mathias, RN Registered Nurse 09/25/20 [employer] Relationship Specialty Start Date End Date Latoya Avila APRN.VOCAL PERFORMER [address] [place] [address] PCP - General Internal Medicine 07/16/19 Alem Mathias, RN Registered Nurse 09/25/20 [employer] Relationship Specialty Start Date End Date Latoya Avila APRN.VOCAL PERFORMER [id number] [place] [address] PCP - General Internal Medicine 07/16/19 Alem Mathias, RN Registered Nurse 09/25/20 Team Status: Active Member Role Status Dates Dr. Kell Granados , Family Provider Active LATOYA AVILA Primary Care Provider Active Team Status: Inactive Member Role Status Dates Dr. Sanjana Rose , Emergency Provider Active AUSTIN BELTRÁN Primary Care Provider, Referring Pr ovider Active [employer] Relationship Specialty Start Date End Date Latoya Avila APRN.VOCAL PERFORMER [id number] [place] [address] PCP - General Internal Medicine 07/16/19 Alem Mathias, RN Registered Nurse 09/25/20 [employer] Relationship Specialty Start Date End Date Latoya Avila APRN.VOCAL PERFORMER [id number] [place] [address] PCP - General Internal Medicine 07/16/19 Alem Mathias, RN Registered Nurse 09/25/20 [employer] Relationship Specialty Start Date End Date Latoya Avila APRN.VOCAL PERFORMER [id number] [place] [address] PCP - General Internal Medicine 07/16/19 Alem Mathias, RN Registered Nurse 09/25/20 [employer] Relationship Specialty Start Date End Date Latoya Avila APRN.VOCAL PERFORMER [id number] [place] [address] PCP - General Internal Medicine 07/16/19 Alem Mathias, RN Registered Nurse 09/25/20 [employer] Relationship Specialty Start Date End Date Latoya Avila APRN.VOCAL PERFORMER [address] [place] [address] PCP - General Internal Medicine 07/16/19 Alem Mathias, RN Registered Nurse 09/25/20 [employer] Relationship Specialty Start Date End Date Latoya Avila APRN.VOCAL PERFORMER [address] [place] [address] 11936 PCP - General Internal Medicine 07/16/19 Alem Leon RN Registered Nurse 09/25/20 [employer] Relationship Specialty Start Date End Date Latoya Avila APRN.VOCAL PERFORMER [address] [place] [address] PCP - General Internal Medicine 07/16/19 Alem Leon, RN Registered Nurse 09/25/20 [employer] Relationship Specialty Start Date End Date Latoya Avila APRN.VOCAL PERFORMER [id number] [place] [address] PCP - General Internal Medicine 07/16/19 Alem Leon, RN Registered Nurse 09/25/20 [employer] Relationship Specialty Start Date End Date Latoya Avila APRN.VOCAL PERFORMER [id number] [place] [address] PCP - General Internal Medicine 07/16/19 Alem Leon, RN Registered Nurse 09/25/20 [employer] Relationship Specialty Start Date End Date Latoya Avila APRN.VOCAL PERFORMER [address] [place] [address] PCP - General Internal Medicine 07/16/19 Alem Leon RN Registered Nurse 09/25/20 [employer] Relationship Specialty Start Date End Date Latoya Avila LANCE CREWMEMBER/MLRS SERGEANT.VOCAL PERFORMER [address] [place] [address] PCP - General Internal Medicine 07/16/19 Alem Leon RN Registered Nurse 09/25/20 [employer] Relationship Specialty Start Date End Date Latoya Avila APRN.VOCAL PERFORMER [address] [place] [address] PCP - General Internal Medicine 07/16/19 Alem Leon RN Registered Nurse 09/25/20 [employer] Relationship Specialty Start Date End Date Latoya Avila LANCE CREWMEMBER/MLRS SERGEANT.VOCAL PERFORMER [id number] [place] [address] PCP - General Internal Medicine 07/16/19 Alem Leon, RN Registered Nurse 09/25/20 Team Status: Active Member Role Status Dates Dr. Kell Granados DO Family Provider Active No Primary Care Physician Primary Care Provider Active Team Status: Inactive Member Role Status Dates No Primary Care Physician Primary Care Provider Active Dr. Brandon Benites MD Emergency Provider Active [employer] Relationship Specialty Start Date End Date Latoya Avila APRN.VOCAL PERFORMER [address] [place] [address] PCP - General Internal Medicine 07/16/19 Alem Leon, RN Registered Nurse 09/25/[address] [address] Pharmacist Pharmacy 03/16/23 [employer] Relationship Specialty Start Date End Date Latoya Avila APRN.VOCAL PERFORMER [address] [place] [address] PCP - General Internal Medicine 07/16/19 Alem Leon RN Registered Nurse 09/25/[address] [phone] Pharmacist Pharmacy 03/16/23 [employer] Relationship Specialty Start Date End Date Latoya Avila APRN.VOCAL PERFORMER [address] [place] [address] PCP - General Internal Medicine 07/16/19 Alem Leon RN Registered Nurse 09/25/[address] [address] Pharmacist Pharmacy 03/16/23 [employer] Relationship Specialty Start Date End Date Latoya Avila APRN.VOCAL PERFORMER [address] [place] [address] PCP - General Internal Medicine 07/16/19 Alem Leon, RN Registered Nurse 09/25/20 [place] [address] [place] [address] Pharmacist Pharmacy 03/16/23 [employer] Architect Relationship Specialty Start Date End Date Latoya Avila APRN.VOCAL PERFORMER [id number] [place] [address] PCP - General Internal Medicine 07/16/19 Alem Leon, RN Registered Nurse 09/25/20 [place] [address] [place] [address] Pharmacist Pharmacy 03/16/23 [employer] Architect Relationship Specialty Start Date End Date Latoya Avila APRN.VOCAL PERFORMER [id number] [place] [address] PCP - General Internal Medicine 07/16/19 Alem Leon RN Registered Nurse 09/25/20 [place] [address] [place] [address] Pharmacist Pharmacy 03/16/23 [employer] Architect Relationship Specialty Start Date End Date Latoya Avila APRN.VOCAL PERFORMER [id number] [place] [address] PCP - General Internal Medicine 07/16/19 Alem eLon, RN Registered Nurse 09/25/20 [place] [address] [place] [address] Pharmacist Pharmacy 03/16/23 [employer] Architect Relationship Specialty Start Date End Date Latoya Avila APRN.VOCAL PERFORMER [address] [place] [address] PCP - General Internal Medicine 07/16/19 Alem Leon, RN Registered Nurse 09/25/[address] [phone] Pharmacist Pharmacy 03/16/23 [employer] Relationship Specialty Start Date End Date Latoya Avila APRN.VOCAL PERFORMER [id number] [place] [address] PCP - General Internal Medicine 07/16/19 Alem Leon, RN Registered Nurse 09/25/[address] [phone] Pharmacist Pharmacy 03/16/23 [employer] Relationship Specialty Start Date End Date Latoya Avila, LANCE CREWMEMBER/MLRS SERGEANT.VOCAL PERFORMER [id number] [place], [place] [address] PCP - General Internal Medicine 07/16/19 Alem Leon RN Registered Nurse 09/25/20 [place] [address] [place] [address] Pharmacist Pharmacy 03/16/23 [employer] Architect Relationship Specialty Start Date End Date Latoya Avila, LANCE CREWMEMBER/MLRS SERGEANT.VOCAL PERFORMER [id number] [place] [address] PCP - General Internal Medicine 07/16/19 Alem Leon, RN Registered Nurse 09/25/20 [place] [address] [place] [phone] Pharmacist Pharmacy 03/16/23 [employer] Relationship Specialty Start Date End Date Latoya Avila APRN.VOCAL PERFORMER [address] [place] [address] PCP - General Internal Medicine 07/16/19 Alem Leon, RN Registered Nurse 09/25/[address] [phone] Pharmacist Pharmacy 03/16/23 [employer] Architect Relationship Specialty Start Date End Date Latoya Avila APRN.VOCAL PERFORMER [address] [place] [address] PCP - General Internal Medicine 07/16/19 Alem Leon RN Registered Nurse 09/25/[address] [address] Pharmacist Pharmacy 03/16/23 [employer] Architect Relationship Specialty Start Date End Date Latoya Avila APRN.VOCAL PERFORMER [address] [place] [address]66 PCP - General Internal Medicine 07/16/19 Alem Leon, RN Registered Nurse 09/25/[address] [address] Pharmacist Pharmacy 03/16/23 [employer] Architect Relationship Specialty Start Date End Date Latoya Avila APRN.VOCAL PERFORMER [address] [place] [address] PCP - General Internal Medicine 07/16/19 Alem Leon, RN Registered Nurse 09/25/[address] [address] Pharmacist Pharmacy 03/16/23 [employer] Architect Relationship Specialty Start Date End Date Latoya Avila APRN.VOCAL PERFORMER [id number] [place] [address] PCP - General Internal Medicine 07/16/19 Alem Leon RN Registered Nurse 09/25/[address] [phone] Pharmacist Pharmacy 03/16/23 [employer] Architect Relationship Specialty Start Date End Date Latoya Avila APRN.VOCAL PERFORMER [address] [place] [address] PCP - General Internal Medicine 07/16/19 [place], [place] [address] [place] [address] Pharmacist Pharmacy 03/16/23 [employer] Architect Relationship Specialty Start Date End Date Latoya Avila APRN.VOCAL PERFORMER [address] [place] [address] PCP - General Internal Medicine 07/16/19 [place] [address] [place] [address] Pharmacist Pharmacy 03/16/23 [employer] Architect Relationship Specialty Start Date End Date Latoya Avila APRN.VOCAL PERFORMER [address] [place] [address] PCP - General Internal Medicine 07/16/19 [place] [address] [place] [phone] Pharmacist Pharmacy 03/16/23 [employer] Architect Relationship Specialty Start Date End Date Latoya Avila APRN.VOCAL PERFORMER [id number] [place] [address] PCP - General Internal Medicine 07/16/19 [place] [address] [place] [phone] Pharmacist Pharmacy 03/16/23 [employer] Architect Relationship Specialty Start Date End Date Latoya Avila APRN.VOCAL PERFORMER [id number] [place] [address] PCP - General Internal Medicine 07/16/19 [place] [address] [place] [address] Pharmacist Pharmacy 03/16/23 [employer] Architect Relationship Specialty Start Date End Date Latoya Avila APRN.VOCAL PERFORMER [id number] [place] [address] PCP - General Internal Medicine 07/16/19 [place] [address] [place] [address] Pharmacist Pharmacy 03/16/23 [employer] Architect Relationship Specialty Start Date End Date Latoya Avila APRN.VOCAL PERFORMER [id number] [place] [address]228 PCP - General Internal Medicine 07/16/19 [place] [address] [place] [address] Pharmacist Pharmacy 03/16/23 [employer] Architect Relationship Specialty Start Date End Date Latoya Avila APRN.VOCAL PERFORMER [id number] [place] [address] PCP - General Internal Medicine 07/16/19 [place] [address] [place] [address] Pharmacist Pharmacy 03/16/23 [employer] Architect Relationship Specialty Start Date End Date Latoya Avila APRN.VOCAL PERFORMER [address] [place] [address] PCP - General Internal Medicine 07/16/19 [place] [address] [place] [address] Pharmacist Pharmacy 03/16/23 [employer] Architect Relationship Specialty Start Date End Date Kell Granados [address] [place] [address] PCP - General 09/05/14 [employer] Relationship Specialty Start Date End Date Latoya Avila APRN.VOCAL PERFORMER [address] [place] [address] PCP - General Internal Medicine 07/16/19 [place] [address] [place] [phone] Pharmacist Pharmacy 03/16/23 [employer] Architect Relationship Specialty Start Date End Date Latoya Avila APRN.VOCAL PERFORMER [address] [place] [address] PCP - General Internal Medicine 07/16/19 [place] [address] [place] [address] Pharmacist Pharmacy 03/16/23 [employer] Architect Relationship Specialty Start Date End Date Latoya Avila APRN.VOCAL PERFORMER [address] [place] [address] PCP - General Internal Medicine 07/16/19 [place], [place] [address] [place] [address] Pharmacist Pharmacy 03/16/23 [employer] Architect Relationship Specialty Start Date End Date Latoya Avila APRN.VOCAL PERFORMER [id number] [place] [address] PCP - General Internal Medicine 07/16/19 [place], [place] [address] [place] [phone] Pharmacist Pharmacy 03/16/23 [employer] Architect Relationship Specialty Start Date End Date Latoya Avila APRN.VOCAL PERFORMER [address] [place] [address] PCP - General Internal Medicine 07/16/19 [place], [place] [address] [place] [address] Pharmacist Pharmacy 03/16/23 [employer] Architect Relationship Specialty Start Date End Date Latoya Avila APRN.VOCAL PERFORMER [id number] [place] [address] PCP - General Internal Medicine 07/16/19 [place] [address] [place] [address] Pharmacist Pharmacy 03/16/23 [employer] Architect Relationship Specialty Start Date End Date Paz Lugo DO [address] [place] [address] PCP - General Family Medicine 05/08/24 [place] [address] [place] [address] Pharmacist Pharmacy 03/16/23 [employer] Architect Relationship Specialty Start Date End Date Paz Lugo DO [address] [place] [address] PCP - General Family Medicine 05/08/24 [place], [place] [address] [place] [address] Pharmacist Pharmacy 03/16/23 [employer] Architect Relationship Specialty Start Date End Date Paz Lugo DO [address] [place] [address] PCP - General Family Medicine 05/08/24 [place] [address] [place] [address] Pharmacist Pharmacy 03/16/23 [employer] Architect Relationship Specialty Start Date End Date Paz Lugo DO [address] [place] [address] PCP - General Family Medicine 05/08/24 [place] [address] [place] [address] Pharmacist Pharmacy 03/16/23 [employer] Architect Relationship Specialty Start Date End Date Joe Paz Gomez DO [address] [place] [address] PCP - General Family Medicine 05/08/24 [place] [address] [place] [address] Pharmacist Pharmacy 03/16/23 [employer] Architect Relationship Specialty Start Date End Date Joe Paz Gomez DO [address] [place] [address] PCP - General Family Medicine 05/08/24 [place]Kate giraldoilyJ[place] [address] [place] [address] Pharmacist Pharmacy 03/16/23 [employer] Architect Relationship Specialty Start Date End Date Paz Lugo DO [address] [place] [address] PCP - General Family Medicine 05/08/24 [place]doily[place] [address] [place] [address] Pharmacist Pharmacy 03/16/23 [employer] Architect Relationship Specialty Start Date End Date Joe Paz Gomez DO [address] [place] [address] PCP - General Family Medicine 05/08/24 [place] [address] [place] [address] Pharmacist Pharmacy 03/16/23 Team Status: Active Member Role/Relationship Status Dates Dr. Kell Granados DO Family Provider Active Dr. Paz Lugo DO Primary Care Provider Active Team Status: Inactive Member Role/Relationship Status Dates Dr. Paz Lugo DO Primary Care Provider Active Start: August 08, 2024 End: August 08, 2024 Dr. Paz Lugo DO Referring Provider Active Start: August 08, 2024 End: August 08, 2024 Dr. Gus Juarez MD Attending Provider Active S tart: August 08, 2024 End: August 08, 2024 [employer] Relationship Specialty Start Date End Date Paz Lugo DO [address] [place] [address] PCP - General Family Medicine 05/08/24 [place] [address] [place] [address] Pharmacist Pharmacy 03/16/23 [employer] Architect Relationship Specialty Start Date End Date Paz Lugo DO [address] [place] [address] PCP - General Family Medicine 05/08/24 [employer] Architect Relationship Specialty Start Date End Date Paz Lugo DO [address] [place] [address] PCP - General Family Medicine 05/08/24 [employer] Architect Relationship Specialty Start Date End Date Paz Lugo DO [address] [place] [address] PCP - General Family Medicine 05/08/24 [place] [address] [place] [address] Pharmacist Pharmacy 03/16/23 09/04/24 [employer] Architect Relationship Specialty Start Date End Date Paz Lugo DO [address] [facility] [place] [address] PCP - General [facility] Medicine 05/08/24 [employer] Architect Relationship Specialty Start Date End Date Paz Lugo DO [address] [facility] [place] [address] PCP - General [facility] Medicine 05/08/24 [employer] Architect Relationship Specialty Start Date End Date Paz Lugo DO [address] [facility] [facility] [place] [address] PCP - General [facility] 05/08/24 Goals (unrecognized section and content) Goals may be documented in a n alternate sectionGoals may be documented in an alternate sectionGoals may be documented in an alternate sectionGoals may be documented in an alternate section (unrecognized sect ion and content) No Status Records Found FOR RECORDS PERTAINING TO PATIENTS WHO ARE [...] BE BASED ON THE PRIMARY CLINICAL RECORDS. [facility]. provides no warranty or guarantee of the accuracy or completeness of information in this document.
[2024-12-02 12:01] VITALS: BP 131/79; PULSE 66; RESP 14; TEMP 36.6; O2SAT 98
== END 2024-12-02 12:02 | disposition home or self-care (01) ==
PROVIDERS: Emergency Provider Emergency Medicine; PCP Family Medicine; Visit Provider Emergency Medicine
DX: M17.11 Unilateral primary osteoarthritis, right knee (principal); E11.9 Type 2 diabetes mellitus without complications; Z87.891 Personal history of nicotine dependence; E78.5 Hyperlipidemia, unspecified; I10 Essential (primary) hypertension; M25.561 Pain in right knee
CPT/HCPCS: 73564; 96372; 99283